=== PATIENT | female | born 1940 | race Caucasian/White ===

== ENCOUNTER → 2018-03-28 10:00 | Outpatient (CLI) | payer MEDICARE, MEDICAID, SELFPAY | PROVIDERS: PCP Family Medicine; Visit Provider Orthopaedic Surgery | DX: Z47.1 Aftercare following joint replacement surgery (principal); Z96.652 Presence of left artificial knee joint ==

== ENCOUNTER 2018-04-18 13:30 | Outpatient (RCR) | payer MEDICARE, MEDICAID, SELFPAY ==
--- NOTE | 2018-03-23 15:57 | PTTR_ITS ---
DATE: 03/23/18 SUBJECTIVE: Elvi states that she is still having pain in her knee and hip. She admits that she does not use ice or elevate often. OBJECTIVE: Manual therapy: ([id number]). With patient seated at the edge of the plinth, perform AP/PA glides to tibiofemoral joint. Mobilize patient into flexion, she easily reaches 120 degrees of active flexion. With patient in supine, performed AP/PA glides in loose packed position, followed by patellar mobs with restriction noted in all planes. Mobilize into knee extension utilizing METs for improved ROM. Patient achieves -3 degrees with moderate overpressure. Therapeutic procedures ([id number]). * [X] See flow sheet: Patient completed a closed-chain LE strengthening program with proprioceptive balance activities, as per flow sheet. Added functional step ups/downs and [id number], wobble board, and NuStep biking, with good tolerance. Patient ends with cryo to L knee x10 minutes, at no charge. * [X] Provided skilled instruction in proper exercise performance * [X] Provided skilled manual cues to facilitate proper muscle recruitment and/or movement pattern Direct treatment time: 45 minutes Total treatment time: 55 mintues
--- NOTE | 2018-03-27 11:23 | PTTR_ITS ---
DATE: 03/27/18 OBJECTIVE: * [X] Aquatic Therapy - (34863 x1): Patient completed a therapeutic exercise program in an aquatic setting for LE strengthening and improved ROM, as per flow sheet. Patient required skilled instruction for appropriate exercise performance and to avoid compensatory movement patterns throughout session. Patient was encouraged to perform activities without pool wall support , to focus on improved LE stability. Patient ended with deep water biking and several activities from her previous independent program for global conditioning. Direct treatment time: 20 minutes Total treatment time: 45 minutes
--- NOTE | 2018-04-03 11:06 | PTTR_ITS ---
DATE: 04/03/18 OBJECTIVE: * [X] Aquatic Therapy - (27976 x1): Patient completed a therapeutic exercise program in an aquatic setting for LE strengthening, as per flow sheet. Patient tolerated an increase in her program today, modifications made to reps are noted on flow sheet. Patient continues to require consistent cuing for postural correction as well as for proper movement mechanics to avoid compensatory movement patterns. Patient ends with biking and LE abd/add. Direct treatment time: 20 minutes Total treatment time: 40 minutes
--- NOTE | 2018-04-05 15:38 | PTTR_ITS ---
DATE: 04/06/18 SUBJECTIVE: Elvi continues to complain of balance impairments. OBJECTIVE: * [X] Aquatic Therapy - (21219 x1): Patient completed a therapeutic exercise program in an aquatic setting for LE strengthening, as per flow sheet. Patient was able to tolerate a progression in her program today, see flow sheet for modifications made to reps and resistance. Patient continues to require cuing for posture and appropriate movement mechanics, specifically to avoid compensation of glutes. Patient ends with deep end biking and LE abd/ add. Direct treatment time: 20 minutes Total treatment time: 40 minutes
--- NOTE | 2018-04-18 15:13 | PTDS_ITS ---
Date: 04/18/18 Referring: Clint Robles MD M.D. Diagnosis: S/p TKR 02/05/18 P.T. Diagnosis: Same Subjective: Elvi reports she is doing very well. No longer having any hip pain, as she originally complained about at her IE. She occasionally has lateral knee , pain but this is dissipating with time. She is doing her aquatic strengthening 2x/week. She started ambulating without a cane, not even remembering to bring it with her today. She does not c/o any limitations around her home or the community. Standardized Measures: LEFS 34% disability, compared to 59% at time of IE. Objective: Gait: Minimally antalgic, but comparable to baseline as I am familiar with Elvi. She has very mid extension lag at L heel strike, mild decreased stance on L. No trunk lean or Trendelenburg. Good heel to toes mechanics, in regards to her deconditioned state mild forward bend at hips with ambulation. Palpation: Non tender despite complaints of occasional lateral knee pain Edema: none ROM: L knee active: 5-120*. Passive 0-120* Joint Accessory Motion: TF WNL, with audible click. PF moderately limited all planes, but non painful. Strength: 5/5 quad and HS. Grossly weak through the L hip girdle as demonstrated by her forward flexion with gait, and dependency on hands with sit to stand. Balance: L SLS 10 sec, finger tip touch for 5 seconds of it. Treatment: Manual Therapy ([id number]): IASTM down regulation lateral knee joint compartment. Therapeutic Procedure ([id number]): Complete assessment as above, and HEP review with encouragement of continued aquatics, and directed how to increase reps and intensity of exercise, quad set activities to encourage extension. Treatment Time: 25 minutes Assessment: Patient is a 77-year-old female, referred for PT services with the diagnosis of L TKA 02/05/18. Patient presents appropriate for PT discharge due to minimal impairments related to her TKR. She has made excellent ROM gains, strength gains, and has returned to her premorbid level of function. She continues to demonstrate a movement pattern that suggest a remarkable amount of core and hip girdle weakness, but she refuses to participate in land based strengthening as she is convinced it aggravates her fibromyalgia. She will be compliant with aquatics, which will allow for good management of her fibromyalgia pain, keep her active, and to continues to maintain and strengthen her left knee further in the water. G-Codes (fill in modifier after appropriate code): Patient's discharge status: __x__ Mobility - walking and moving around : [id number], based on her LEFS Projected goal: __x__ Mobility - walking and moving around: [id number] BASED ON HER PREMORBID COMORBIDITIES AND ASSOCIATED IMPAIRMENTS AND FUNCTIONAL LIMITATIONS. STG: __4__ weeks. 1: LEFS is improved to 45% disability. MET 2: Patient states she is able to tolerate weight bearing activities of 45 mins or greater without pain exceeding a 4/10 in L knee. MET 3: Sleep pattern improved by 50%. MET LTG: __12__ weeks. 1: Continue with self maintenance aquatic and land base therapeutic exercise and mobility program. MET 2: Return to premorbid level of function. MET 3: Return to full functional mobility. MET Plan: Discharged.
== END 2018-04-20 23:59 | disposition home or self-care (01) ==
LOC: PT 13:30
PROVIDERS: PCP Family Medicine; Referring Provider Orthopaedic Surgery; Visit Provider Orthopaedic Surgery
DX: Z47.1 Aftercare following joint replacement surgery (principal); Z96.652 Presence of left artificial knee joint
CPT/HCPCS: 97110; 97113; 97140

== ENCOUNTER → 2018-05-09 10:12 | Outpatient (BNVA) | payer MEDICARE, MEDICAID, SELFPAY | PROVIDERS: PCP Family Medicine; Visit Provider Orthopaedic Surgery | DX: Z47.1 Aftercare following joint replacement surgery (principal); Z96.652 Presence of left artificial knee joint | CPT/HCPCS: 99213 ==

== ENCOUNTER 2018-10-23 11:44 | Outpatient (CLI) | payer MEDICARE, MEDICAID, SELFPAY ==
--- NOTE | 2018-10-23 11:24 | DI.RAD_ITS ---
SYMPTOM/DIAGNOSIS: RT ANKLE ARTHRITIS, S/P ORIF AT [facility] RIGHT ANKLE: Comparison is made with 01/14/16. Hardware remains in place in the distal tibia and fibula. There are again noted to be severe degenerative changes of the tibiotalar joint. There are large subchondral cysts in the talar dome. There is some flattening of the talus. The degenerative changes have worsened when compared with the previous exam. A prominent heel spur is noted. The bones appear osteoporotic. 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
== END 2018-10-23 12:04 ==
PROVIDERS: PCP Family Medicine; Referring Provider Family Medicine; Visit Provider Orthopaedic Surgery
DX: M19.071 Primary osteoarthritis, right ankle and foot (principal); M77.31 Calcaneal spur, right foot; I10 Essential (primary) hypertension
CPT/HCPCS: 99212; 99213; 73610; L1902

== ENCOUNTER 2018-12-21 11:20 | Outpatient (CLI) | payer MEDICARE, MEDICAID, SELFPAY ==
[2018-12-21 11:47] LABS: Abs Immature Grans 0.02 k/cumm (0.0-0.09); Absolute Basophil Count 0.01 k/cumm (0.0-0.2); Absolute Eosinophil Count 0.25 k/cumm (0.0-0.7); Absolute Lymphocyte Count 1.38 k/cumm (1.2-3.4); Absolute Monocyte Count 0.48 k/cumm (0.11-0.7); Absolute Neutrophil Count 3.63 k/cumm (1.2-6.7); Basophils % 0.2; Eosinophils % 4.3; HCT 38.5 % (36.0-46.0); HGB 12.2 g/dL (12.0-15.5); Immature Grans % 0.3; Lymphocytes % 23.9; Mean Corp. HGB Concentration 31.7 g/dL (32.0-36.0); Mean Corpuscular Hemoglobin 31.7 pg (27.0-33.0); Mean Platelet Volume 10.3 fL (8.0-11.0); Monocytes % 8.3; Platelet Count 210 x1000/uL (130-400); RBC 3.85 m/cumm (4.00-5.20); RBC Distribution Width 12.6 % (11.7-14.6); White Blood Cell Count 5.77 k/cumm (4.4-10.8)
[2018-12-21 12:26] LABS: ALT 18 U/L (12-78); AST 30 U/L (15-37); Albumin 3.2 g/dL (3.4-5.0); Alkaline Phosphatase 81 U/L (46-116); Anion Gap 10.6 mmol/L (3-11); BUN 8 mg/dL (7-18); Bilirubin, Total 0.4 mg/dL (0.2-1.0); CO2 23.4 mmol/L (21.0-32.0); CREATININE 0.82 mg/dL (0.55-1.02); Calcium 8.6 mg/dL (8.5-10.1); Chloride 105 mmol/L (98-107); Glucose 98 mg/dL (70-100); Potassium 4.9 mmol/L (3.5-5.1); Sodium 139 mmol/L (136-145); Total Protein 6.8 g/dL (6.4-8.2)
== END 2018-12-21 11:40 ==
PROVIDERS: PCP Family Medicine; Visit Provider Family Medicine
DX: I10 Essential (primary) hypertension (principal); R05 Cough; K52.9 Noninfective gastroenteritis and colitis, unspecified; K58.9 Irritable bowel syndrome, unspecified
CPT/HCPCS: 36415; 80053; 85025

== ENCOUNTER 2019-05-08 10:47 | Outpatient (CLI) | payer MEDICARE, MEDICAID, SELFPAY ==
--- NOTE | 2019-05-08 10:06 | DI.RAD_ITS ---
EXAM: XR KNEE LT 2V AP,LAT INDICATION: ONE YEAR F/U. COMPARISON: LEFT KNEE LIMITED 1 OR 2 VIEWS from 11/08/2017 TECHNIQUE: 2D digital imaging was performed. FINDINGS: Two views were obtained and show a total knee joint replacement in position. Components appear well seated. I
== END 2019-05-08 11:07 ==
PROVIDERS: PCP Family Medicine; Visit Provider Orthopaedic Surgery
DX: Z96.652 Presence of left artificial knee joint (principal); Z47.1 Aftercare following joint replacement surgery; I10 Essential (primary) hypertension; M17.12 Unilateral primary osteoarthritis, left knee
CPT/HCPCS: 99213; 73560

== ENCOUNTER 2019-06-25 15:14 | Outpatient (CLI) | payer MEDICARE, MEDICAID, SELFPAY ==
[2019-06-25 15:45] LABS: HCT 39.1 % (36.0-46.0); HGB 12.8 g/dL (12.0-15.5); Mean Corp. HGB Concentration 32.7 g/dL (32.0-36.0); Mean Corpuscular Hemoglobin 32.8 pg (27.0-33.0); Mean Corpuscular Volume 100.3 fL (80-95); Mean Platelet Volume 10.3 fL (8.0-11.0); Platelet Count 217 x1000/uL (130-400); RBC Distribution Width 12.6 % (11.7-14.6); White Blood Cell Count 6.65 k/cumm (4.4-10.8)
[2019-06-25 16:50] LABS: Vitamin B12 1381 pg/mL (193-986)
== END 2019-06-25 15:34 ==
PROVIDERS: PCP Family Medicine; Visit Provider Family Medicine
DX: E53.8 Deficiency of other specified B group vitamins (principal)
CPT/HCPCS: 36415; 85027; 82607

== ENCOUNTER 2019-11-18 15:48 | Outpatient (REF) | payer MEDICARE, MEDICAID, SELFPAY ==
[2019-11-18 20:21] LABS: Anion Gap 16.7 mmol/L (3-11); BUN 23 mg/dL (7-18); CO2 26.3 mmol/L (21.0-32.0); CREATININE 1.68 mg/dL (0.55-1.02); Calcium 9.5 mg/dL (8.5-10.1); Chloride 88 mmol/L (98-107); Estimated GFR 29.47 (mL/min/1.73m2); Glucose 117 mg/dL (74-106); Potassium 3.7 mmol/L (3.5-5.1); Sodium 131 mmol/L (136-145)
== END 2019-11-18 16:08 ==
LOC: NCHCN 15:48
PROVIDERS: PCP Family Medicine; Visit Provider Family Medicine
DX: R53.1 Weakness (principal); I10 Essential (primary) hypertension
CPT/HCPCS: 80048

== ENCOUNTER 2019-11-30 11:22 | Emergency (ER) | payer MEDICARE, MEDICAID, SELFPAY ==
--- NOTE | 2019-11-30 11:23 | ED.GENADUL_ITS ---
Discharge Plan Disposition Patient Disposition: HOME Condition: Fair Discharge Details Chief Complaint: GenMedical Clinical Impression: Chronic depression, Anorexia, Abnormal weight loss, Fatigue, UTI (urinary tract infection), Acute electrocardiogram changes Primary Care Provider: Iesha Leary ED Provider: Samantha Hobbs Home Meds and New Rx's Prescriptions: Continued duloxetine [Cymbalta] 20 MG capsule,delayed release(DR/EC) 20 mg PO BID RF: 0 albuterol sulfate 8.5 GM HFA aerosol inhaler 8.5 gm Inhalation Q4H PRN PRNQty: 1 RF: 0 trazodone 150 MG tablet 150 mg PO HS RF: 0 ferrous sulfate 325 MG tablet 325 mg PO TID RF: 0 esomeprazole magnesium [Nexium] 40 MG capsule,delayed release(DR/EC) 40 mg PO DAILY RF: 0 cholecalciferol (vitamin D3) [Vitamin D3] 400 UNIT tablet 800 unit PO DAILY RF: 0 glucosamine sulfate 2KCl 1,000 MG tablet 500 mg PO BID RF: 0 ascorbic acid (vitamin C) 1,000 MG tablet 4,000 mg PO DAILY RF: 0 duloxetine [Cymbalta] 60 MG capsule,delayed release(DR/EC) 60 mg PO BID RF: 0 hydrocodone-acetaminophen [Vicodin] 1 EACH tablet 1 tab PO BID RF: 0 medroxyprogesterone [Provera] 2.5 MG tablet 2.5 mg PO DAILY RF: 0 Premarin 0.3 MG tablet 0.3 mg PO QAM RF: 0 potassium chloride 20 MEQ tablet,ER particles/crystals 80 meq PO BID RF: 0 No Action mirtazapine 30 mg Tablet RF: 0 Discharge Instructions Instructions: Urinary Tract Infection in Women (ED), Fatigue (ED), Anorexia in Older Adults (GEN) Additional Instructions: Please continue to encourage fluid intake, please continue with the Gatorade as previously advised by Dr. Leary. Advance her diet as tolerated. Please stop your Remeron. Please call Dr. Leary on Monday morning to discuss close follow- up and further treatment for your depression and weight loss. If you develop new or worsening symptoms please seek care urgently once again. Please take the antibiotics as prescribed, these have been called into [facility] as you had requested. Please take entire course. Please continue with your probiotics. You have changes on your EKG, I have referred to to cardiology. You should hear about appointment the beginning of next week. If you develop shortness of breath, difficulty breathing or other new/worsening symptoms please seek care urgently once again. Referrals: Iesha Leary [Primary Care Provider] - Discharge Data Discharge Date/Time-TO BE ENTERED AT DEPARTURE: 11/30/19 15:30 Medical Decision Making Patient is a 79-year-old female with past medical history of colitis, hypertension, hyperlipidemia, fibromyalgia, chronic depression, insomnia, GERD, alcohol withdrawal delirium, rhabdomyolysis, COPD. Patient presents today for evaluation of anorexia x1 month. She reports significant weight loss setting a 16 pound weight loss in 1 month. States she has not seen her primary care. This developed after the of her 24-year-old. States she was seen by her primary care and started on Remeron. She advised that this medication is supposed to gain weight despite that has had difficulty with that has had even worsening anorexia. She denies any pain. No shortness of breath. Denies any chest pain. No recent travel. States that yesterday she had sausage and eggs. No p.o. intake thus far today. Denies any nausea vomiting. Patient reports that she has a chronic diarrhea and has had one loose bowel movement today. She reports that this is typical. States that she has been seen multiple times by gastroenterology. Last colonoscopy reported to have been 4 years ago. Patient does have alcohol dependence is been history, patient denies any alcohol use recently. Patient is been seen by her primary care provider on 2 separate occasions for the past few weeks which time she received IV hydration with im provement temporarily. EKG was reviewed by Dr. Mcadams. Patient's normal sinus rhythm with a rate of 101. This was compared to previous EKG in 2017 and of note the patient does have inferior ST segment depressions. She is currently denying any chest pain or shortness of breath. Reviewed note by primary care dated 11/22/2019. At that time, depression had been the primary concern and talked about medication management as well as therapy. Since that the patient was quite resistant to any changes at that time. The provider that time had encouraged Gatorade to help with electrolyte replenishme nt. Patient is prescribed loperamide to help with her chronic diarrhea. Patient is on hydrocodone chronically. On exam, patient has poor color of her skin tone. Her hands and feet are both cool and slightly cyanotic but this is improved with moving and she does continue to have good distal pulses equal bilaterally as well as a 3-second capillary refill in all extremities. Patient does report that this is chronic and unchanged from her baseline. She does appear slightly dry. She has white film on her tongue but states that she is currently eating tums. Patient is noted to be tachycardic with a heart rate of 115 but otherwise normal cardiac exam. Lungs are clear. Abdomen is benign. Patient appears nontoxic. She does appear fatigued. Have a fairly broad differential at this point. However, insisted come on after the of her cat, I am concerned, as was the patient's primary care, for depression is possible underlying etiology. Also considered cancerous etiology although I am not sure to narrow this down inferior to obtain imaging as the patient is not having any other physical symptoms. Symptoms seem more constitutional with fatigue, anorexia. Labs reviewed. Patient has no significant abnormality on CBC. CMP reveals a slightly low sodium of 133, potassium 3.3. Will correct this here. Creatinine remains slightly elevated 1.2, this is down from 1.68 on 11/18/2019. Troponin is less than 0.05. TSH within normal limits. Urinalysis is concerning for possible urinary tract infection with moderate leukocyte esterase and moderate bacteria. Plan to treat with Keflex. I approached the patient regarding the hesitancy to seek further care for her depression that was noted on a primary care note. She is now agreeing to speak with a therapist. I did review Remeron and do note anorexia as potential side effects. I wonder if this medication should be therefore changed once patient denies any clinical benefit since onset 3 weeks ago[address] with [address]. Pope. He is concerned that the hyponatremia. I was questioning if this may be associated with Remeron. He advised the patient may immediately stop Remeron. Advise close follow-up with Dr. Leary. He advised that he probably place the patient on Ritalin but I would prefer that the patient hold off on this and follow-up with primary care. Advised that patient may need further evaluation as well as for possible underlying tumor etiology although again I find it hard to narrow down possible source for this. He feels that discharge with close follow-up would be appropriate plus the cessation of Remeron. I discussed these findings with the patient. I am concerned that she has a urinary tract infection, she was given her first dose of Keflex here. Patient has no CVA tenderness. She is already on a probiotic with her chronic diarrhea. She will stop the Remeron as was discussed with Dr. Gannon. With the EKG changes, I will refer the patient to cardiology. However, as her symptoms are not consistent with ACS, is been going on for a month I do not feel that repeat EKG repeat troponin is necessary at this point. Her last EKG was in 2017 patient denies ever having had chest pain or shortness of breath or other ACS symptoms since that interval. She is given strict return precautions. I did call in the Keflex prescription for her urinary tract infection to [facility], patient's requested pharmacy. She will contact her primary care Monday morning. All the questions and concerns were addressed and she is in agreement this plan. HPI General Mode of arrival: ambulatory . Date/Time Provider Initiated Documentation: 11/30/19 11:23 . Limitations to Documentation: no limitations . Information obtained by: patient and RN notes reviewed . History of Present Illness 79 year old F presents to the emergency department with the chief complaint of decreased appetite, weight loss, weakness, described as moderate, Quality is described as other (denies any pain, denies change aside from ), Patient started experiencing this week(s) (4) and it has been constant. No relieving factors improve symptom(s), No exacerbating factors reported . Patient notes loss of appetite, malaise and weakness (generalized); denies confusion, chest pain, cough, diaphoresis, fever/chills, headaches, nausea/vomiting, rash and shortness of breath. Patient did receive the following treatments prior to arrival, none Related Data Home Medications Medication Instructions Recorded Confirmed albuterol sulfate 8.5 gm INHALATION Q4H PRN PRN #1 07/22/13 10/23/18 [email or web address] cholecalciferol (vitamin D3) 800 unit PO DAILY 12/06/13 10/23/18 [Vitamin D3] esomeprazole magnesium [Nexium] 40 mg PO DAILY 12/06/13 10/23/18 ferrous sulfate 325 mg PO TID 12/06/13 10/23/18 glucosamine sulfate 2KCl 500 mg PO BID 12/06/13 10/23/18 trazodone 150 mg PO HS 12/06/13 10/23/18 ascorbic acid (vitamin C) 4,000 mg PO DAILY 03/22/14 10/23/18 duloxetine [Cymbalta] 60 mg PO BID 11/15/16 10/23/18 hydrocodone-acetaminophen [Vicodin] 1 tab PO BID 11/15/16 10/23/18 Premarin 0.3 mg PO QAM 11/18/16 10/23/18 medroxyprogesterone [Provera] 2.5 mg PO DAILY 11/18/16 10/23/18 potassium chloride 80 meq PO BID 11/25/16 10/23/18 duloxetine [Cymbalta] 20 mg PO BID tab-cap 11/08/17 10/23/18 mirtazapine mg 11/30/19 Previous Rx's Medication Instructions Recorded albuterol sulfate 8.5 gm INHALATION Q4H PRN PRN #1 07/22/13 [email or web address].[email or web address] Allergies Allergy/AdvReac Type Severity Reaction Status Date / Time fentanyl AdvReac Verified 05/08/19 10:04 Review of Systems Constitutional Constitutional: Reports as per HPI, Reports anorexia, Denies chills, Reports fatigue, Denies fever(s), Denies headache(s), Reports lethargy, Reports poor appetite and Reports weight loss ENT Ears, Nose, Mouth, and Throat: Denies headache(s) Cardiovascular Cardiovascular: Reports as per HPI, Denies chest pain and Denies dyspnea Respiratory Respiratory: Reports as per HPI, Denies cough and Denies dyspnea Gastrointestinal Gastrointestinal: Reports as per HPI Musculoskeletal Musculoskeletal: Reports as per HPI and Denies back pain Integumentary/Breasts Skin/Breast: Reports as per HPI and Denies rash Neurologic Neurologic: Reports as per HPI and Denies headache(s) Endocrine Endocrine: Reports fatigue PFSH Medical History Alcohol abuse Allergic rhinitis Anemia Depression DJD (degenerative joint disease) Fibromyalgia GERD (gastroesophageal reflux disease) Hiatal hernia Hypercholesterolemia Hyperlipidemia Hypertension IBS (irritable bowel syndrome) Insomnia Surgical History Arthroplasty of knee left Colonoscopy - [facility] (11/18/16) ORIF right ankle Repair fracture right wrist Tonsillectomy and adenoidectomy Social History Smoking/Tobacco Use Status: Former Tobacco Use Alcohol Intake: never Drug use: Never Substance use type: does not use Do you feel safe at home: Yes Do you feel safe in your relationship?: Yes Exam Const General: cooperative, comfortable, no acute distress, well developed and ill appearing chronically (poor color) Nutritional Appearance: average body habitus and well nourished Orientation: alert and awake [facility] Head: normal to inspection Mouth: mucous membranes dry (dry, white mouth- eating tums) Teeth and gingiva: dentures Throat: posterior oropharynx normal Neck Neck: normal visual inspection, full ROM, no lymphadenopathy, no meningeal signs, supple and no lymphadenopathy noted Resp Effort & Inspection: normal respiratory effort, able to speak in complete sentences and no respiratory distress Auscultation: clear to auscultation bilaterally, no rales, no rhonchi and no wheezes Cardio Rate: regular rate Rhythm: regular rhythm Heart Sounds: S1 normal and S2 normal GI Inspection: normal to inspection, no edema and non-distended Palpation: soft, no hepatosplenomegaly, not firm, no guarding, no hernias, no masses, no pulsatile masses, not rigid and nontender Percussion: normal to percussion Auscultation: normal bowel sounds Back/Spine/Pelvis Back: no CVA tenderness Skin General skin exam: no rashes or lesions noted Trauma: no lacerations or abrasions Neuro General: patient alert and patient awake Cognition: normal cognition Speech: speech normal Gait: normal gait Psych Appearance: grossly normal and well kempt Mental Status: mental status grossly normal Speech and Movement: speech and movement normal
[2019-11-30 11:27] VITALS: BP 114/94; PULSE 115; RESP 20; TEMP 36.1; O2SAT 95
[2019-11-30 12:11] LABS: Abs Immature Grans 0.07 k/cumm (0.0-0.09); Absolute Basophil Count 0.02 k/cumm (0.0-0.2); Absolute Eosinophil Count 0.06 k/cumm (0.0-0.7); Absolute Lymphocyte Count 1.53 k/cumm (1.2-3.4); Absolute Monocyte Count 1.15 k/cumm (0.11-0.7); Absolute Neutrophil Count 5.83 k/cumm (1.2-6.7); Basophils % 0.2; Eosinophils % 0.7; HCT 45.7 % (36.0-46.0); Immature Grans % 0.8 %; Lymphocytes % 17.7; Mean Corpuscular Volume 94.2 fL (80-95); Mean Platelet Volume 9.5 fL (8.0-11.0); Monocytes % 13.3; Neutrophils % 67.3; Platelet Count 307 x1000/uL (130-400); RBC 4.85 m/cumm (4.00-5.20); RBC Distribution Width 11.9 % (11.7-14.6); White Blood Cell Count 8.66 k/cumm (4.4-10.8)
[2019-11-30] MEDS: Normal Saline 1,000 ML 1000 ML IV (12:15)
[2019-11-30 13:46] LABS: ALT 22 U/L (14-59); AST 22 U/L (15-37); Albumin 2.4 g/dL (3.4-5.0); Alkaline Phosphatase 116 U/L (46-116); Anion Gap 7.1 mmol/L (3-11); BUN 14 mg/dL (7-18); Bilirubin, Total 0.4 mg/dL (0.2-1.0); CO2 28.9 mmol/L (21.0-32.0); Calcium 8.1 mg/dL (8.5-10.1); Chloride 97 mmol/L (98-107); ETHANOL BLOOD < 3.0 mg/dL (<3); Estimated GFR 43.34 (mL/min/1.73m2); Glucose 82 mg/dL (74-106); Magnesium 2.1 mg/dL (1.8-2.4); Potassium 3.3 mmol/L (3.5-5.1); Sodium 133 mmol/L (136-145); Total Protein 6.2 g/dL (6.4-8.2); Troponin I < 0.05 ng/Ml (<0.06)
[2019-11-30 13:51] VITALS: BP 111/64; PULSE 79; RESP 17; TEMP 36.1; O2SAT 93
[2019-11-30 13:54] LABS: Bilirubin Negative (Negative); Blood Trace-intact (Negative); Clarity Clear (Clear); Glucose Negative (Negative); Ketones Negative (Negative); Leukocyte Esterase Moderate (Negative); Nitrite Negative (Negative); Urobilinogen 0.2 EU/dL (Up TO 0.2)
[2019-11-30 14:06] LABS: Bacteria Moderate HPF (Negative); C & S Indicated? Yes; Casts Negative LPF (Negative); Crystals Negative HPF (Negative); Epithelial Cells Few HPF (Negative); Mucus Trace (Negative); WBC 20-50 HPF (0-5)
[2019-11-30 14:17] LABS: *AMPHETAMINES SCREEN URINE Negative (Negative); *BARBITURATES SCREEN URINE Negative (Negative); *BENZODIAZEPINES SCREEN URINE Negative (Negative); Cannabinoids THC Negative (Negative); Cocaine Screen,Urine Negative (Negative); METHADONE URINE SCREEN Negative (Negative); OPIATES URINE SCREEN POSITIVE (Negative); Tricyclic Antidepressants Negative (Negative)
[2019-11-30] MEDS: Cephalexin 500 MG CAP PO (14:25)
[2019-11-30] MEDS: Potassium Chloride 10 MEQ TABCR PO (14:25)
--- NOTE | 2019-11-30 14:36 | NUR.NOTE ---
Pt currently drinking sin sarah, tolerating well.
--- NOTE | 2019-11-30 16:09 | NUR.NOTE ---
Nursing Note: Faxed cardiology referral to specialty clinics
== END 2019-11-30 15:30 | disposition home or self-care (01) ==
PROVIDERS: Emergency Provider Physician Assistant; PCP Family Medicine
DX: F32.89 Other specified depressive episodes (principal); R63.0 Anorexia; R63.4 Abnormal weight loss; N39.0 Urinary tract infection, site not specified; R53.83 Other fatigue; R94.31 Abnormal electrocardiogram [ECG] [EKG]; I10 Essential (primary) hypertension; R79.9 Abnormal finding of blood chemistry, unspecified
CPT/HCPCS: 80053; 80307; 87077; 93005; 96360; 96361; 99284; 80320; 81003; 81015; 83735; 84443; 84484; 85025; 87086; 87186; 93010

== ENCOUNTER 2020-05-11 03:18 | Emergency (ER) | payer MEDICARE, MEDICAID, SELFPAY ==
[2020-05-11] VITALS (18 sets, daily range): BP systolic 106–140; BP diastolic 60–127; PULSE 81–147; RESP 17–42; TEMP 36.7; O2SAT 87–100
--- NOTE | 2020-05-11 03:15 | DI.CT_ITS ---
EXAM: CT HEAD WO CLINICAL HISTORY: numbness/tingling right head, dizziness. TECHNIQUE: Imaging Protocol: Axial computed tomography images with coronal and sagittal reformatted images were created and reviewed COMPARISON: CT HEAD WITHOUT CONTRAST from 12/06/2013 FINDINGS: Ventricles and Extra axial spaces: Normal in size and morphology for the patient's age. Hemorrhage: None. Cerebral parenchyma: Subtle areas of decreased attenuation are seen in the white matter most suggesti ve of microvascular ischemic changes. No evidence of an acute territorial infarct. Midline shift: None. Brainstem/Cerebellum: Normal. Calvarium: Normal. Visualized Paranasal sinuses/Mastoids: Clear. Soft Tissues: Unremarkable. IMPRESSION: No acute intracranial process. RADIATION DOSE DELIVERED: 735.12mGy.cm Total DLP DATA REPOSITORY: All CT scans at this facility are submitted to the National Radiology Data Registry (NRDR) Dose Index Registry (DIR) with the [employer] [place] ([employer]). RADIATION OPTIMIZATION: All CT scans at this facility use at least one of these dose optimization te chniques: automated exposure control; mA and/or kV adjustment per patient size (includes targeted exa ms where dose is matched to clinical indication); or iterative reconstruction.
--- NOTE | 2020-05-11 03:18 | RT.EKG_ITS ---
APPROVED REPORT Exam: Resting ECG Patient Location: E HR:109 bpm ECG Measurements Heart Rate 109 AXIS KS 61 P 0 QRSd 86 QRS 4 QT 369 T 27 QTc 498 Conclusion Sinus tachycardia...rate> 99 Probable left atrial enlargement...P >50mS, <-0.10mV V1 Low voltage, extremity and precordial leads...extremity<0.5mV, precordial<1.0mV Nonspecific T abnrm, anterolateral leads...T <-0.10mV, I aVL V2-V6
--- NOTE | 2020-05-11 03:25 | ED.GENADUL_ITS ---
Discharge Plan Disposition Patient Disposition: HOME Condition: Stable Discharge Details Clinical Impression: Paresthesia Primary Care Provider: Iesha Leary ED Provider: Manohar Trejo Home Meds and New Rx's Prescriptions: Continued duloxetine [Cymbalta] 20 MG capsule,delayed release(DR/EC) 30 mg PO BID RF: 0 albuterol sulfate 8.5 GM HFA aerosol inhaler 8.5 gm Inhalation Q4H PRN PRNQty: 1 RF: 0 trazodone 150 MG tablet 150 mg PO HS RF: 0 ferrous sulfate 325 MG tablet 325 mg PO TID RF: 0 esomeprazole magnesium [Nexium] 40 MG capsule,delayed release(DR/EC) 40 mg PO DAILY RF: 0 cholecalciferol (vitamin D3) [Vitamin D3] 400 UNIT tablet 800 unit PO DAILY RF: 0 glucosamine sulfate 2KCl 1,000 MG tablet 500 mg PO BID RF: 0 ascorbic acid (vitamin C) 1,000 MG tablet 4,000 mg PO DAILY RF: 0 duloxetine [Cymbalta] 60 MG capsule,delayed release(DR/EC) 90 mg PO BID RF: 0 hydrocodone-acetaminophen [Vicodin] 1 EACH tablet 1 tab PO BID RF: 0 medroxyprogesterone [Provera] 2.5 MG tablet 2.5 mg PO DAILY RF: 0 Premarin 0.3 MG tablet 0.3 mg PO QAM RF: 0 potassium chloride 20 MEQ tablet,ER particles/crystals 80 meq PO BID RF: 0 Discharge Instructions Additional Instructions: your cat scan and blood work did not show any concerning findings you should be contacted with an appointment with your primary care provider and to help arrange home physical therapy if you feel more ill, have worsening weakness or difficulty breathing return to the emergency department Medical Decision Making 79 yo female with hx of htn, insomnia, gerd, fibromyalgia, copd, who comes in with ems with 2 weeks of intermittent right sided scalp tingling and states has had current tingling sensation on right scalp for 8 hours. States she felt lightheaded earlier yesterday but denies this now. No fevers, chest pain, shortness of breath abdominal pain. Arrives hd stable and appears anxious on exam. She arrives hd stable with pressured speech but no focal deficits. No cn II-XII deficits and no focal motor or sensation deficits, nih of 0. She has full sensation of the scalp. I suspect this could be due to her anxiety/insomnia but will evaluate for electrolyte abnormalities and given it is on one side of the scalp obtain ct to evaluate for possible mass. No headaches so doubt ich. No chest pain or pressure or shortness of breath so doubt acs at this time ct negative for acute pathology, she appears less anxious and feels better after a half mg of ativan. Awaiting labs, stable neuro exam. Hr 80, bp 128/88 pt remains hd stable, no neuro deficits and does walk and has to hold her hands out against a wall when doing so but states this is chronic for her for years and unchanged. She feels safe going home and declines placement in rehab at this time as she states she feels at her baseline but is willing to have home PT for evaluation of gait and home safety evaluation. Will also place her on the f/u list to see her pcp within a week for scalp paresthesia. I suspect her symptoms could be due to her chronic insomnia and likely peripheral neuropathy from prior alcohol abuse over years, but she understands she needs to return for any changes or worsening of symptoms Differential Diagnosis Differential Diagnosis: anxiety, electrolyte abnormality, tumor Medical Records Medical records reviewed: Yes I reviewed the patient's medical records. Imaging Data Radiologic Study: Attestation: I personally reviewed and interpreted this imaging study as follows: Imaging: CT Scan Radiologist's impression: no acute findings Lab Data Lab results reviewed: Yes I reviewed the patient's lab results. ECG Data Attestation: I personally reviewed and interpreted this ECG (s) as follows: Prior ECG tracings: not available for review Interpretation: sinus tachycardia, rate of 109, qtc 498 HPI General Mode of arrival: ambulatory . Date/Time Provider Initiated Documentation: 05/11/20 03:22 . Limitations to Documentation: no limitations . Information obtained by: patient . History of Present Illness 79 year old F presents to the emergency department with the chief complaint of tingling on right scalp, described as moderate, Patient started experiencing this week(s) (2) and it has been intermittent. No relieving factors improve symptom(s), No exacerbating factors reported . Patient did receive the following treatments prior to arrival, none Related Data Home Medications Medication Instructions Recorded Confirmed albuterol sulfate 8.5 gm INHALATION Q4H PRN PRN #1 07/22/13 05/11/20 [email or web address] cholecalciferol (vitamin D3) 800 unit PO DAILY 12/06/13 05/11/20 [Vitamin D3] esomeprazole magnesium [Nexium] 40 mg PO DAILY 12/06/13 05/11/20 ferrous sulfate 325 mg PO TID 12/06/13 05/11/20 glucosamine sulfate 2KCl 500 mg PO BID 12/06/13 05/11/20 trazodone 150 mg PO HS 12/06/13 05/11/20 ascorbic acid (vitamin C) 4,000 mg PO DAILY 03/22/14 05/11/20 duloxetine [Cymbalta] 90 mg PO BID 11/15/16 05/11/20 hydrocodone-acetaminophen [Vicodin] 1 tab PO BID 11/15/16 05/11/20 Premarin 0.3 mg PO QAM 11/18/16 05/11/20 medroxyprogesterone [Provera] 2.5 mg PO DAILY 11/18/16 05/11/20 potassium chloride 80 meq PO BID 11/25/16 05/11/20 duloxetine [Cymbalta] 30 mg PO BID tab-cap 11/08/17 05/11/20 Previous Rx's Medication Instructions Recorded albuterol sulfate 8.5 gm INHALATION Q4H PRN PRN #1 07/22/13 [email or web address] Allergies Allergy/AdvReac Type Severity Reaction Status Date / Time fentanyl AdvReac Verified 05/11/20 04:14 General MELISSA: 3 Review of Systems All systems reviewed & are unremarkable except as noted in HPI and below Constitutional Constitutional: Denies chills, Denies fever(s) and Denies weakness Cardiovascular Cardiovascular: Denies chest pain and Denies dyspnea Respiratory Respiratory: Denies cough and Denies dyspnea Gastrointestinal Gastrointestinal: Denies abdominal pain, Denies nausea and Denies vomiting Musculoskeletal Musculoskeletal: Denies joint swelling Neurologic Neurologic: Denies weakness Psychiatric Psychiatric: Denies depression ON LICENSE OF [facility] Medical History (Updated 05/11/20 @ 05:22 by Manohar Trejo MD) Alcohol abuse Allergic rhinitis Anemia Depression DJD (degenerative joint disease) Fibromyalgia GERD (gastroesophageal reflux disease) Hiatal hernia Hypercholesterolemia Hyperlipidemia Hypertension IBS (irritable bowel syndrome) Insomnia Surgical History Arthroplasty of knee left Colonoscopy - MAC (11/18/16) ORIF right ankle Repair fracture right wrist Tonsillectomy and adenoidectomy Social History Smoking/Tobacco Use Status: Former Tobacco Use Alcohol Intake: current Alcohol Intake frequency: 0-2 drinks per day Alcohol type: wine Drug use: Never Substance use type: does not use Do you feel safe at home: Yes Do you feel safe in your relationship?: Yes Exam Const General: anxious Orientation: alert HENMT Head: normal to inspection Ears: external ears normal General nose exam: external nose normal Mouth: moist mucous membranes Eyes General: appearance normal, both eyes and all related structures Neck Neck: normal visual inspection Resp Effort & Inspection: normal respiratory effort and able to speak in complete sentences Cardio Rate: tachycardic Skin General skin exam: no rashes or lesions noted Neuro General: patient alert and patient oriented x3 Extrem General: normal to inspection Psych Appearance: grossly normal
[2020-05-11] MEDS: LORazepam 2 MG/ML VIAL 0.5 MG IVP (03:38)
[2020-05-11 03:40] LABS: Abs Immature Grans 0.02 10^3/uL (0.0-0.06); Absolute Basophil Count 0.02 10^3/uL (0.0-0.2); Absolute Eosinophil Count 0.19 10^3/uL (0.0-0.7); Absolute Lymphocyte Count 2.57 10^3/uL (1.2-3.4); Absolute Monocyte Count 0.62 10^3/uL (0.1-0.8); Absolute Neutrophil Count 3.01 10^3/uL (1.2-6.7); Basophils % 0.3; HGB 11.3 g/dL (11.2-15.7); Immature Grans % 0.3; MCHC 34.2 % (32.0-36.0); MCV 99.4 fL (80-95); MPV 10.1 fL (8.0-11.0); Monocytes % 9.6; Neutrophils % 46.8; Nucleated RBC 0 %; Platelet Count 237 10^3/uL (130-400); RBC 3.32 10^6/uL (3.93-5.22); RDW 13.5 % (11.7-14.6); WBC 6.43 10^3/uL (4.4-10.8)
[2020-05-11 03:56] LABS: INR 1.1 (0.9-1.1); PTT Activated 23.8 sec (21.0-31.4); Prothrombin Time 10.9 sec (9.3-11.0)
--- NOTE | 2020-05-11 04:01 | DI.VRAD_ITS ---
PROCEDURE INFORMATION: Exam: CT Head Without Contrast Exam date and time: 05/11/2020 3:49 AM Age: 79 years old Clinical indication: Patient HX: Numbness/tingling right head, dizziness TECHNIQUE: Imaging protocol: Computed tomography of the head without contrast. Other technique: STROKE PROTOCOL was implemented. COMPARISON: CT HEAD WITHOUT CONTRAST 09/22/2014 11:51 AM FINDINGS: Brain: Normal. No hemorrhage. Unremarkable white matter. No mass effect. Ventricles: No ventriculomegaly. Bones/joints: Unremarkable. No acute fracture. Paranasal sinuses: Visualized sinuses are unremarkable. No fluid levels. Mastoid air cells: Visualized mastoid air cells are well aerated. Soft tissues: Unremarkable. IMPRESSION: No acute intracranial abnormality. ASSESSMENT: ASPECTS (Hilda Stroke Program Early CT Score) is 10. Dictated and Authenticated by: Manohar Alonzo MD. Ordering:LATESHA Villela MD
[2020-05-11 05:09] LABS: ALT 20 U/L (14-59); AST 28 U/L (15-37); Albumin 2.6 g/dL (3.4-5.0); Alkaline Phosphatase 152 U/L (46-116); Anion Gap 14.9 mmol/L (3-11); BUN 10 mg/dL (7-18); Bilirubin, Total 0.4 mg/dL (0.2-1.0); CO2 21.1 mmol/L (21.0-32.0); CREATININE 0.97 mg/dL (0.55-1.02); Chloride 103 mmol/L (98-107); Glucose 84 mg/dL (74-106); Magnesium 1.6 mg/dL (1.8-2.4); Potassium 3.7 mmol/L (3.5-5.1); Sodium 139 mmol/L (136-145); Total Protein 5.7 g/dL (6.4-8.2)
[2020-05-11 05:10] LABS: Troponin I < 0.05 ng/mL (<0.06)
--- NOTE | 2020-05-19 10:00 | CMPROGNOTE_ITS ---
- If Service Date Differs Date of service: 05/19/20 Time of Service: 10:00 Care Management Progress Note At the request of ED provider, CM coordinates a referral to Home Health for in- home physical therapy.
== END 2020-05-11 06:00 | disposition home or self-care (01) ==
PROVIDERS: Emergency Provider Emergency Medicine; PCP Family Medicine
DX: R20.2 Paresthesia of skin (principal); I10 Essential (primary) hypertension; J44.9 Chronic obstructive pulmonary disease, unspecified
CPT/HCPCS: 36415; 80053; 93005; 96374; 99285; 70450; 81003; 83735; 84484; 85025; 85610; 85730; 93010; 99284; J2060

== ENCOUNTER 2020-07-02 15:19 | Emergency (ER) | payer MEDICARE, MEDICAID, SELFPAY ==
--- NOTE | 2020-07-02 15:15 | RT.EKG_ITS ---
APPROVED REPORT Exam: Resting ECG Patient Location: E HR:75 bpm ECG Measurements Heart Rate 75 AXIS SC 135 P 6 QRSd 97 QRS 14 QT 386 T 19 QTc 430 Conclusion Sinus rhythm...normal P axis, V-rate 60- 99 Low voltage, precordial leads...precordial leads <1.0mV I have reviewed and interpreted ECG and agree with software generated interpretation.
[2020-07-02 15:20] VITALS: BP 140/80; PULSE 78; RESP 18; TEMP 36.3; O2SAT 94
--- NOTE | 2020-07-02 15:22 | ED.GENADUL_ITS ---
Discharge Plan Disposition Patient Disposition: HOME Condition: Improving Discharge Details Clinical Impression: Spasm of thoracic back muscle Primary Care Provider: Iesha Leary ED Provider: Katiuska Nguyen Home Meds and New Rx's Prescriptions: New methocarbamol 500 mg tablet 500 mg PO Q6H PRN (Reason: muscle spasm) Qty: 14 RF: 0 lidocaine [Lidoderm] 5 % adhesive patch,medicated 1 patch TP DAILY PRN (Reason: pain) Qty: 15 RF: 0 Continued duloxetine [Cymbalta] 20 MG capsule,delayed release(DR/EC) 30 mg PO BID RF: 0 albuterol sulfate 8.5 GM HFA aerosol inhaler 8.5 gm Inhalation Q4H PRN PRNQty: 1 RF: 0 trazodone 150 MG tablet 150 mg PO HS RF: 0 ferrous sulfate 325 MG tablet 325 mg PO TID RF: 0 esomeprazole magnesium [Nexium] 40 MG capsule,delayed release(DR/EC) 40 mg PO DAILY RF: 0 cholecalciferol (vitamin D3) [Vitamin D3] 400 UNIT tablet 800 unit PO DAILY RF: 0 glucosamine sulfate 2KCl 1,000 MG tablet 500 mg PO BID RF: 0 ascorbic acid (vitamin C) 1,000 MG tablet 4,000 mg PO DAILY RF: 0 duloxetine [Cymbalta] 60 MG capsule,delayed release(DR/EC) 90 mg PO BID RF: 0 hydrocodone-acetaminophen [Vicodin] 1 EACH tablet 1 tab PO BID RF: 0 medroxyprogesterone [Provera] 2.5 MG tablet 2.5 mg PO DAILY RF: 0 Premarin 0.3 MG tablet 0.3 mg PO QAM RF: 0 potassium chloride 20 MEQ tablet,ER particles/crystals 80 meq PO BID RF: 0 Discharge Instructions Instructions: Muscle Spasm (ED) Additional Instructions: Alternate ice and heat to the affected area(s) several times daily for 20 minutes at a time. Alternate tylenol and motrin as needed and directed for pain. Take your Vicodin that you have at home as needed and directed for pain. Take the methocarbamol muscle relaxer as needed and directed for additional pain relief of your back spasms. Use the Lidoderm patches as needed and directed for pain. Follow-up with your primary care doctor in 1 week. Return to the emergency department with any worsening or new concerning symptoms. Discharge Data Discharge Date/Time-TO BE ENTERED AT DEPARTURE: 07/02/20 18:30 Discharge Physician: Katiuska Nguyen Medical Decision Making 1530 -- 79-year-old female presents with mid bilateral back spasms for the past few days. States it started after moving a rug at home. Vitals within normal limits. She appears nontoxic. Pain appears reproducible when she is moving around and when laying flat. She does have tenderness palpation of her bilateral lateral mid thoracic region. Lungs clear. Abdomen soft nontender. No focal deficits. Neurovascular intact. Considering age and history, will obtain a chest x-ray to rule out any other acute findings. Will give a dose of oxycodone, Valium p.o. and Toradol IM and Lidoderm patch and reassess. 1700 --patient reassessed and she feels much better. X-ray results noted possible age-indeterminate compression injuries of at least 2 mid thoracic vertebrae and recommended CT if warranted. Results discussed with patient and she admits that she feels that she has been getting somewhat shorter but denies any known thoracic vertebrae fracture. Is agreeable with plan for CT chest. 1829 -- CT chest notes chronic thoracic vertebral fractures. Patient reassessed and she still feels better and feels good to go home. We will send with methocarbamol for home. Advised to follow up with the primary care doctor for re-evaluation. Usual and customary return precautions given prior to discharge. Medical Records Medical records reviewed: Yes I reviewed the patient's medical records. Imaging Data Radiologic Study: Radiologist's impression: XR Chest, 2 Views Exam date and time: 07/02/2020 3:51 PM Age: 79 years old Clinical indication: Other: Mid back pain TECHNIQUE: Imaging protocol: XR of the chest Views: 2 views. COMPARISON: CR CHEST 2 VIEWS PA,LAT 12/06/2013 4:52 PM FINDINGS: Lungs: Unremarkable. No consolidation. Pleural space: Unremarkable. No pleural effusion. No pneumothorax. Heart/Mediastinum: A large hiatal hernia is appreciated. There is mild cardiomegaly. Vasculature: Tortuous aorta is present. Calcified aortic knob. Bones/joints: Moderate multilevel degenerative changes of the spine, as manifested by multilevel anterior osteophytes and multilevel decrease in intervertebral disc space. Possible compression injuries at at least 2 midthoracic vertebra. IMPRESSION: 1. No acute cardiopulmonary pathology. 2. Possible a age indeterminate compression injuries at at least 2 midthoracic vertebra. Consider correlation with CT if clinically warranted. CT Chest Without Contrast Exam date and time: 07/02/2020 5:10 PM Age: 79 years old Clinical indication: Other: Back pain and mid back spasms. ; Patient HX: No trauma/ injury to mid back. ; Additional info: Added t spine reconstructions to chest wo in all three planes. TECHNIQUE: Imaging protocol: Computed tomography of the chest without contrast. Radiation optimization: All CT scans at this facility use at least one of these dose optimization techniques: automated exposure control; mA and/or kV adjustment per patient size (includes targeted exams where dose is matched to clinical indication); or iterative reconstruction. COMPARISON: CR XR CHEST 2V PA LATERAL 07/02/2020 4:43 PM FINDINGS: Lungs: Reticular scarring noted throughout the lung periphery with focal areas of honeycombing appreciated in the right upper lobe, right middle lobe, and right lower lobe. There is linear scarring in the left lung base likewise appreciated. No acute interstitial or airspace disease is appreciated at this time. The airways are patent. COPD related pulmonary changes are suggested. Pleural space: Trace left pleural effusion. Heart: The heart is not enlarged. There is calcification of the aortic valve annulus. There is mild atherosclerotic calcification of the coronary arteries. Trace pericardial effusion is most likely physiologic and of no clinical concern. Mediastinal space: A large hiatal hernia is present. Pulmonary arteries: Normal in course and caliber. Aorta: The aorta demonstrates mild atherosclerotic calcification. Aorta appears otherwise unremarkable. Lymph nodes: No adenopathy. Bones/joints: No acute skeletal pathology. Severe multilevel degenerative changes of the spine, as manifested by multilevel anterior osteophytes and multilevel decrease in intervertebral disc space. Chronic compression fractures of T7 and T8, with about 45% loss in vertebral body height at T7 and about 50-60% loss of vertebral body height at T8. There is no retropulsion of fracture fragments appreciated. Spinal canal appears patent. Soft tissues: Unremarkable. Other findings: The visualized intra-abdominal structures demonstrate no acute findings. IMPRESSION: 1. Trace left pleural effusion. Otherwise, no other acute thoracic pathology is identified. 2. Chronic interstitial lung disease, as detailed above. 3. Incidental findings as detailed above. Note is made of chronic compression fractures at T7 and T8, as detailed above. ECG Data Attestation: I personally reviewed and interpreted this ECG (s) as follows: Interpretation: EKG done on arrival by staff and not ordered by me. Rate of 75, sinus, no acute ST elevation or depression. IL 135. QRS 97. QTc 430. HPI General Mode of arrival: ambulatory . Date/Time Provider Initiated Documentation: 07/02/20 15:23 . Limitations to Documentation: no limitations . Information obtained by: patient . HPI Narrative: Patient is a 79-year-old female with a history of fibromyalgia, hypertension, hyperlipidemia, insomnia and history of alcohol abuse which she denies currently presents for mid back pain for the past 2 days. Patient states she moved a heavy rug with her friend a few days ago and states she may have injured her back doing this rib do not recall specific injury. She states she has bilateral mid back spasms that occur mainly with movement and bending over. She takes Vicodin twice daily for her fibromyalgia and denies any significant relief with this today. She denies any fever, cough, anterior chest pain, abdominal pain, nausea, vomiting, diarrhea, urinary symptoms, bowel or bladder incontinence, saddle anesthesia, arm or leg pain weakness or numbness. Related Data Home Medications Medication Instructions Recorded Confirmed albuterol sulfate 8.5 gm INHALATION Q4H PRN PRN #1 07/22/13 07/02/20 [email or web address] cholecalciferol (vitamin D3) 800 unit PO DAILY 12/06/13 07/02/20 [Vitamin D3] esomeprazole magnesium [Nexium] 40 mg PO DAILY 12/06/13 07/02/20 ferrous sulfate 325 mg PO TID 12/06/13 07/02/20 glucosamine sulfate 2KCl 500 mg PO BID 12/06/13 07/02/20 trazodone 150 mg PO HS 12/06/13 07/02/20 ascorbic acid (vitamin C) 4,000 mg PO DAILY 03/22/14 07/02/20 duloxetine [Cymbalta] 90 mg PO BID 11/15/16 07/02/20 hydrocodone-acetaminophen [Vicodin] 1 tab PO BID 11/15/16 07/02/20 Premarin 0.3 mg PO QAM 11/18/16 07/02/20 medroxyprogesterone [Provera] 2.5 mg PO DAILY 11/18/16 07/02/20 potassium chloride 80 meq PO BID 11/25/16 07/02/20 duloxetine [Cymbalta] 30 mg PO BID tab-cap 11/08/17 07/02/20 lidocaine [Lidoderm] 1 patch TP DAILY PRN #15 ea 07/02/20 methocarbamol 500 mg PO Q6H PRN #14 tab 07/02/20 Previous Rx's Medication Instructions Recorded albuterol sulfate 8.5 gm INHALATION Q4H PRN PRN #1 07/22/13 [email or web address] lidocaine [Lidoderm] 1 patch TP DAILY PRN #15 ea 07/02/20 methocarbamol 500 mg PO Q6H PRN #14 tab 07/02/20 Allergies Allergy/AdvReac Type Severity Reaction Status Date / Time fentanyl AdvReac Verified 07/02/20 16:04 General MELISSA: 2 Review of Systems All systems reviewed & are unremarkable except as noted in HPI and below Constitutional Constitutional: Reports as per HPI, Denies chills and Denies fever(s) Eyes Eyes: Denies blurry vision ENT Ears, Nose, Mouth, and Throat: Denies dizziness, Denies sore throat and Denies throat swelling Cardiovascular Cardiovascular: Denies chest pain and Denies dyspnea Respiratory Respiratory: Denies cough and Denies dyspnea Gastrointestinal Gastrointestinal: Denies abdominal pain, Denies diarrhea and Denies vomiting Genitourinary Genitourinary: Denies hematuria and Denies dysuria Musculoskeletal Musculoskeletal: Reports back pain and Denies numbness Integumentary/Breasts Skin/Breast: Denies lesions and Denies rash Neurologic Neurologic: Denies dizziness, Denies localized weakness and Denies numbness Allergic/Immunologic Allergic/Immunologic: Denies throat swelling [facility] [place] Medical History (Updated 07/02/20 @ 18:11 by Katiuska Nguyen DO) Alcohol abuse Allergic rhinitis Anemia Depression DJD (degenerative joint disease) Fibromyalgia GERD (gastroesophageal reflux disease) Hiatal hernia Hypercholesterolemia Hyperlipidemia Hypertension IBS (irritable bowel syndrome) Insomnia Surgical History Arthroplasty of knee left Colonoscopy - MAC (11/18/16) ORIF right ankle Repair fracture right wrist Tonsillectomy and adenoidectomy Social History Smoking/Tobacco Use Status: Former Tobacco Use Smoking risk assessment performed?: Yes Alcohol Intake: current Alcohol Intake frequency: 0-2 drinks per day Alcohol type: wine Drug use: Never Substance use type: does not use Do you feel safe at home: Yes Do you feel safe in your relationship?: Yes Exam Const General: cooperative, healthy appearing and no acute distress [facility] Head: normal to inspection Face and sinus: normal facial exam Eyes General: appearance normal, both eyes and all related structures Pupils: PERRL EOM: EOM intact bilaterally Neck Neck: normal visual inspection and No submandibular swelling Lymphatic: no lymphadenopathy noted Chest Chest: normal inspection of the chest and no tenderness Resp Effort & Inspection: normal respiratory effort and able to speak in complete s entences Auscultation: clear to auscultation bilaterally Cardio Rate: regular rate Rhythm: regular rhythm GI Inspection: normal to inspection Palpation: soft, not firm, not rigid and nontender Auscultation: normal bowel sounds Back/Spine/Pelvis Thoracic/Lumbar Spine: thoracic and lumbar spine normal to inspection Pelvis: no pain with anterior-posterior compression Back/spine/pelvis image: 1. Tender to palpation. No erythema, edema, rash, ecchymosis or crepitus. 2. Tender to palpation. No erythema, edema, rash, ecchymosis or crepitus. Skin General skin exam: no rashes or lesions noted Neuro General: patient alert, patient awake and patient oriented x3 Cognition: normal cognition Speech: speech normal Motor: muscle tone normal throughout and strength 5/5 throughout Sensory Exam: no sensory deficits noted DTR's: Rt Patellar: 1+, Lt Patellar: 1+, Rt Ankle: 1+ and Lt Ankle: 1+ Plantar Reflexes: Equivocal: bilateral (Negative babinski bilaterally) Extrem General: full ROM, capillary refill normal, no calf tenderness bilaterally and no edema Ankle/foot/toe images: 1. Well healed scar and deformity medial malleolus. No edema or tenderness. Psych Appearance: grossly normal Mental Status: mental status grossly normal Speech and Movement: speech and movement normal Affect: normal affect
[2020-07-02] MEDS: diazePAM 5 MG TAB PO (15:56)
[2020-07-02] MEDS: oxyCODONE 5 MG TAB PO (15:56)
[2020-07-02] MEDS: Lidocaine 5% Patch 1 PATCH TP ×2 (15:57)
[2020-07-02] MEDS: Ketorolac 60 MG/2 ML VIAL IM (15:57)
--- NOTE | 2020-07-02 16:45 | DI.RAD_ITS ---
EXAM: XR CHEST 2V PA LATERAL CLINICAL HISTORY: mid back pain, r/o acute disease TECHNIQUE: 2D digital imaging was performed. COMPARISON: CR CHEST 2 VIEWS PA,LAT from 09/14/2013 FINDINGS: MEDIASTINUM: Normal. HEART: Mild cardiomegaly. PULMONARY VASCULATURE: Normal. LUNGS: Chronic pulmonary fibrosis. No acute consolidating infiltrates. PLEURAL SPACE: No pleural effusion or pneumothorax. BONE:Old compression fracture deformities of T7 and T8. OTHER FINDINGS:There is a large hiatal hernia. IMPRESSION: No acute pulmonary findings. DATA REPOSITORY: RADIATION DOSE DELIVERED:
--- NOTE | 2020-07-02 16:59 | DI.VRAD_ITS ---
PROCEDURE INFORMATION: Exam: XR Chest, 2 Views Exam date and time: 07/02/2020 3:51 PM Age: 79 years old Clinical indication: Other: Mid back pain TECHNIQUE: Imaging protocol: XR of the chest Views: 2 views. COMPARISON: CR CHEST 2 VIEWS PA,LAT 12/06/2013 4:52 PM FINDINGS: Lungs: Unremarkable. No consolidation. Pleural space: Unremarkable. No pleural effusion. No pneumothorax. Heart/Mediastinum: A large hiatal hernia is appreciated. There is mild cardiomegaly. Vasculature: Tortuous aorta is present. Calcified aortic knob. Bones/joints: Moderate multilevel degenerative changes of the spine, as manifested by multilevel anterior osteophytes and multilevel decrease in intervertebral disc space. Possible compression injuries at at least 2 midthoracic vertebra. IMPRESSION: 1. No acute cardiopulmonary pathology. 2. Possible a age indeterminate compression injuries at at least 2 midthoracic vertebra. Consider correlation with CT if clinically warranted. Dictated and Authenticated by: Constantino Cadena MD. Ordering:MARTHA Harp MD
--- NOTE | 2020-07-02 17:45 | DI.CT_ITS ---
EXAM: CT CHEST WO CLINICAL HISTORY: back spasms, possible midthoracic compression fx. TECHNIQUE: Imaging protocol: Axial computed tomography images were obtained and coronal and sagittal reformatted images were created and reviewed. COMPARISON: CT CHEST FOR PULMONARY EMBOLUS from 12/06/2013 FINDINGS: Tracheobronchial tree: Patent where visualized. Mediastinum and Felipa: No dominant adenopathy or fluid collection. Large hiatal hernia. Pulmonary parenchyma: No focal consolidating infiltrate. No pulmonary mass. There is diffuse pulmon linda interstitial fibrosis. Pleura: Small left pleural effusion. No right pleural effusion or pneumothorax. Heart: The heart is not dilated. Mild coronary artery calcification. Small pericardial effusion whic h is likely physiologic. Calcification of the aortic annulus. Aorta: Thoracic aorta non-dilated. Atherosclerosis. Upper abdomen: Unremarkable. Lymph nodes: Within normal limits. Bones:Old T7 and T8 compression fractures which appears stable compared to the examination from 2013. No acute thoracic spine fracture is noted. Degenerative changes are seen in the thoracic spin e. Soft tissues: Unremarkable. IMPRESSION: 1. Old stable T7 and T8 compression fracture deformities. No acute fracture or subluxation in the th oracic spine. 2. Chronic interstitial lung disease. 3. Small left pleural effusion. RADIATION DOSE DELIVERED: 457.49mGy.cm Total DLP 457.49mGy.cm Total DLP DATA REPOSITORY: All CT scans at this facility are submitted to the National Radiology Data Registry (NRDR) Dose Index Registry (DIR) with the [employer] (ACR). RADIATION OPTIMIZATION: All CT scans at this facility use at least one of these dose optimization te chniques: automated exposure control; mA and/or kV adjustment per patient size (includes targeted exa ms where dose is matched to clinical indication); or iterative reconstruction.
--- NOTE | 2020-07-02 18:09 | DI.VRAD_ITS ---
PROCEDURE INFORMATION: Exam: CT Chest Without Contrast Exam date and time: 07/02/2020 5:10 PM Age: 79 years old Clinical indication: Other: Back pain and mid back spasms. ; Patient HX: No trauma/ injury to mid back. ; Additional info: Added t spine reconstructions to chest wo in all three planes. TECHNIQUE: Imaging protocol: Computed tomography of the chest without contrast. Radiation optimization: All CT scans at this facility use at least one of these dose optimization techniques: automated exposure control; mA and/or kV adjustment per patient size (includes targeted exams where dose is matched to clinical indication); or iterative reconstruction. COMPARISON: CR XR CHEST 2V PA LATERAL 07/02/2020 4:43 PM FINDINGS: Lungs: Reticular scarring noted throughout the lung periphery with focal areas of honeycombing appreciated in the right upper lobe, right middle lobe, and right lower lobe. There is linear scarring in the left lung base likewise appreciated. No acute interstitial or airspace disease is appreciated at this time. The airways are patent. COPD related pulmonary changes are suggested. Pleural space: Trace left pleural effusion. Heart: The heart is not enlarged. There is calcification of the aortic valve annulus. There is mild atherosclerotic calcification of the coronary arteries. Trace pericardial effusion is most likely physiologic and of no clinical concern. Mediastinal space: A large hiatal hernia is present. Pulmonary arteries: Normal in course and caliber. Aorta: The aorta demonstrates mild atherosclerotic calcification. Aorta appears otherwise unremarkable. Lymph nodes: No adenopathy. Bones/joints: No acute skeletal pathology. Severe multilevel degenerative changes of the spine, as manifested by multilevel anterior osteophytes and multilevel decrease in intervertebral disc space. Chronic compression fractures of T7 and T8, with about 45% loss in vertebral body height at T7 and about 50-60% loss of vertebral body height at T8. There is no retropulsion of fracture fragments appreciated. Spinal canal appears patent. Soft tissues: Unremarkable. Other findings: The visualized intra-abdominal structures demonstrate no acute findings. IMPRESSION: 1. Trace left pleural effusion. Otherwise, no other acute thoracic pathology is identified. 2. Chronic interstitial lung disease, as detailed above. 3. Incidental findings as detailed above. Note is made of chronic compression fractures at T7 and T8, as detailed above. Dictated and Authenticated by: Constantino Cadena MD. Ordering:MARTHA Harp MD
[2020-07-02] MEDS: Methocarbamol 500 MG TAB 1000 MG PO (18:31)
== END 2020-07-02 18:30 | disposition home or self-care (01) ==
PROVIDERS: Emergency Provider Physician Assistant; PCP Family Medicine
DX: M62.830 Muscle spasm of back (principal); X50.9XXA Other and unspecified overexertion or strenuous movements or postures, initial encounter; S22.060A Wedge compression fracture of T7-T8 vertebra, initial encounter for closed fracture; X58.XXXA Exposure to other specified factors, initial encounter; I10 Essential (primary) hypertension
CPT/HCPCS: 71250; 93005; 96372; 99284; 71046; 93010; 99285; J1885

== ENCOUNTER 2020-09-19 03:18 | Emergency (ER) | payer MEDICARE, MEDICAID, SELFPAY ==
--- NOTE | 2020-09-19 03:15 | DI.CT_ITS ---
EXAM: CT LUMBAR SPINE RECONS CLINICAL HISTORY: fall, pain in l spine and l flank. TECHNIQUE: Imaging Protocol: Axial computed tomography images with coronal and sagittal reformatted images were created and reviewed CONTRAST MATERIAL: Noncontrast COMPARISON: CT CT CHEST WO from 07/02/[address] CHEST WO from 07/02/2020 FINDINGS: Bones: The last intervertebral disc space is designated the L5/S1 level for the numbering purpose of this examination. The vertebral body heights are well maintained. Bones are demineralized. Degener ative disc changes and facet joint the degenerative changes. Degenerative scoliosis, conevx toward r ight. Bone island L4. No fracture is seen. Bilateral neural foraminal narrowing at L1-2 and L2-3, l eft greater than right. Right neural foraminal narrowing at L4-5. Soft Tissues: The visualized SI joints show mild degenerative changes. The paraspinal soft tissues are unremarkable. IMPRESSION: Degenerative changes and scoliosis. No evidence of fracture. RADIATION DOSE DELIVERED: Total DLP DATA REPOSITORY: All CT scans at this facility are submitted to the National Radiology Data Registry (NRDR) Dose Index Registry (DIR) with the [employer] (ACR). RADIATION OPTIMIZATION: All CT scans at this facility use at least one of these dose optimization te chniques: automated exposure control; mA and/or kV adjustment per patient size (includes targeted exa ms where dose is matched to clinical indication); or iterative reconstruction.
--- NOTE | 2020-09-19 03:15 | DI.CT_ITS ---
EXAM: CT ABDOMEN PELVIS WO CLINICAL HISTORY: fall, pain in lumbar spine and left flank. TECHNIQUE: Imaging Protocol: Axial computed tomography images with coronal and sagittal reformatted images were created and reviewed. CONTRAST MATERIAL: Noncontrast COMPARISON: CT CHEST WITH CONTRAST from 07/19/[address] CHEST WO from 07/02/2020 FINDINGS: ABDOMEN: Lung Bases: Stable basilar fibrotic changes and left lower lobe pleural scarring. No pneumothorax. Liver: Normal attenuation. No measurable mass. Gallbladder and biliary tract: No radiodense calculus or dilation. Pancreas: Normal density, no calcifications or inflammatory process. Spleen: Normal. Kidneys: Normal size, contour and axis. No radiodense stones or obstructive uropathy. Small cyst upp er pole left kidney. No masses seen. Adrenal glands: No masses seen. Abdominal Aorta: Abdominal portion non-dilated. Moderate calcification. Soft tissues: Diffuse muscle atrophy. PELVIS: Bladder: Symmetric distention, no gross wall thickening. Bowel: Stable moderate-sized hiatal hernia. No obstruction or bowel wall thickening. Peritoneal cavity: No ascites, collection or mesenteric inflammatory response. Bones: Demineralized. Degenerative disc changes and facet degenerative changes. No spine or pelvic fractures. Reproductive: Unremarkable. IMPRESSION: No evidence of fracture or other acute posttraumatic abnormality. RADIATION DOSE DELIVERED: Total DLP DATA REPOSITORY: All CT scans at this facility are submitted to the National Radiology Data Registry (NRDR) Dose Index Registry (DIR) with the [employer] (ACR). RADIATION OPTIMIZATION: All CT scans at this facility use at least one of these dose optimization te chniques: automated exposure control; mA and/or kV adjustment per patient size (includes targeted exa ms where dose is matched to clinical indication); or iterative reconstruction.
[2020-09-19 03:21] VITALS: BP 136/84; PULSE 105; RESP 25; TEMP 37.1; O2SAT 100
[2020-09-19 03:26] VITALS: BP 136/84; PULSE 100; RESP 20; O2SAT 100
[2020-09-19 03:27] VITALS: RESP 18; O2SAT 100
--- NOTE | 2020-09-19 03:28 | ED.GENADUL_ITS ---
Discharge Plan Disposition Patient Disposition: HOME Condition: Good Discharge Details Clinical Impression: Fall, Back pain Primary Care Provider: Iesha Leary ED Provider: Kwame Taveras Home Meds and New Rx's Prescriptions: New lidocaine [Lidoderm] 1 PATCH patch 1 patch Topical Q24H Qty: 4 RF: 0 Continued duloxetine [Cymbalta] 20 MG capsule,delayed release(DR/EC) 30 mg PO BID RF: 0 albuterol sulfate 8.5 GM HFA aerosol inhaler 8.5 gm Inhalation Q4H PRN PRNQty: 1 RF: 0 trazodone 150 MG tablet 150 mg PO HS RF: 0 ferrous sulfate 325 MG tablet 325 mg PO TID RF: 0 esomeprazole magnesium [Nexium] 40 MG capsule,delayed release(DR/EC) 40 mg PO DAILY RF: 0 cholecalciferol (vitamin D3) [Vitamin D3] 400 UNIT tablet 800 unit PO DAILY RF: 0 glucosamine sulfate 2KCl 1,000 MG tablet 500 mg PO BID RF: 0 ascorbic acid (vitamin C) 1,000 MG tablet 4,000 mg PO DAILY RF: 0 duloxetine [Cymbalta] 60 MG capsule,delayed release(DR/EC) 90 mg PO BID RF: 0 hydrocodone-acetaminophen [Vicodin] 1 EACH tablet 1 tab PO BID RF: 0 medroxyprogesterone [Provera] 2.5 MG tablet 2.5 mg PO DAILY RF: 0 Premarin 0.3 MG tablet 0.3 mg PO QAM RF: 0 potassium chloride 20 MEQ tablet,ER particles/crystals 80 meq PO BID RF: 0 fluticasone propionate 50 mcg/actuation spray,suspension 2 spray INTRANASAL QAM RF: 0 Discharge Instructions Instructions: Back Pain (ED) Additional Instructions: At this time your CT images show no evidence of new fracture or trauma. The pain in your back is likely combination of contusion, bruised muscle, both of which are likely compounded by your fibromyalgia. Please take Tylenol and Motrin as needed for pain, I would recommend to continue to use the Lidoderm patches for pain as prescribed. Please use a heating pad on your back to help with the spasm. We will contact our case planner to see if we can get additional help for you at home. If you notice any worsening of your symptoms, or any new symptoms such as vomiting, diarrhea, fever, chills, shortness of breath, chest pain, numbness, weakness, or fainting , please return immediately to the emergency department for reevaluation. Please follow up with your primary care provider as soon as possible for reassessment and reevaluation. As always, it was a pleasure participating in your medical care today. 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 She presents today for evaluation after a fall. Patient lives alone at home, she states she get home health nursing once every 2 weeks. She states that this evening she was transitioning from the bedside commode to the bed and slipped and landed on her buttock and lower back on a hardwood floor. This happened a second time later in the evening, upon EMS/fire arrival she felt that it was best to be evaluated at the ER as it was her second fall on her buttock and lower back she was concerned as she had mild back pain after the fall. She denies any numbness or tingling. She explicitly states that she did not hit her head. She recalls the events, and states it was secondary to me trying to move too quickly. She denies any significant acute imbalance, change in vision, focal weakness, or new feelings of unsteadiness. She is not on any blood thinners. She denies any other complaints at this time. Aside for pain in her buttock and lower back she denies any chest pain, abdominal pain, leg pain, arm pain, neck pain or head pain. Physical exam demonstrates no signs of significant trauma. She has minimal tenderness from the left lumbar paraspinal region. Minimal tenderness over the 12th rib. No other focal pain. Lower extremities demonstrate good strength and sensation. No other signs of trauma over the rest of her exam. Per patient history there was no evidence of syncope, striking of the head, or precursory symptoms of lightheadedness vision changes or room spinning sensation. Per patient and history fall appears to be more of the mechanical base. She has no fever or chills, no urinary frequency. No indication to suggest infectious etiology. With symptoms appearing mechanical in nature, we will get CT scan of the lumbar spine hips and back. We will give Lidoderm patch and Toradol. 5:[address] scan results have returned, per virtual radiology no evidence of acute traumatic process. No fracture. Notable stenosis is present. On reassessment after Toradol and Lidoderm patch the patient is feeling much better, she is sleeping and resting comfortably. She states that she feels well and would like the pain patch for home use. We will give Lidoderm patch prescription for home. Patient has made it clear that she does wish she had additional help and assistance at home. We will place a case management referral for additional home health help. With no signs of significant traumatic process, and the patient being back to her normal baseline in regards to her mobility and functionality, in addition to her pain now being resolved after Toradol and Lidoderm patch feel that the patient can be discharged home. I have extensively reviewed the treatment plan and discharge instructions with the patient. I have addressed all patient concerns at this time. The patient was made aware of what symptoms to monitor for that would warrant a return to the emergency department. Discussed the plan with the patient, they demonstrate verbal understanding and agreement with our assessment and plan at this time. The documentation in this chart was dictated using [employer] dictation software. Please excuse any dictation errors. IMPRESSION: 1. No lumbar spine fracture. 2. Mild lumbar scoliosis convex towards the right 3. 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 Dictated and Authenticated by: Audie Mccoy MD 09/19/2020 5:41 AM Eastern Time ([place] IMPRESSION: 1. No evidence for acute trauma in the abdomen and pelvis 2. Small atelectasis versus infiltrate in the lower lobes. 3. Tiny left pleural effusion 4. Hiatal hernia Thank you for allowing us to participate in the care of your patient. Dictated and Authenticated by: Audie Mccoy MD 09/19/2020 5:18 AM Eastern Time ([place]) HPI General Date/Time Provider Initiated Documentation: 09/19/20 03:38 . 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 She presents today for evaluation after a fall. Patient lives alone at home, she states she get home health nursing once every 2 weeks. She states that this evening she was transitioning from the bedside commode to the bed and slipped and landed on her buttock and lower back on a hardwood floor. This happened a second time later in the evening, upon EMS/fire arrival she felt that it was best to be evaluated at the ER as it was her second fall on her buttock and lower back she was concerned as she had mild back pain after the fall. She denies any numbness or tingling. She explicitly states that she did not hit her head. She recalls the events, and states it was secondary to me trying to move too quickly. She denies any significant acute imbalance, change in vision, focal weakness, or new feelings of unsteadiness. She is not on any blood thinners. She denies any other complaints at this time. Aside for pain in her buttock and lower back she denies any chest pain, abdominal pain, leg pain, arm pain, neck pain or head pain. Related Data Home Medications Medication Instructions Recorded Confirmed albuterol sulfate 8.5 gm INHALATION Q4H PRN PRN #1 07/22/13 09/19/20 [email or web address] cholecalciferol (vitamin D3) 800 unit PO DAILY 12/06/13 09/19/20 [Vitamin D3] esomeprazole magnesium [Nexium] 40 mg PO DAILY 12/06/13 09/19/20 ferrous sulfate 325 mg PO TID 12/06/13 09/19/20 glucosamine sulfate 2KCl 500 mg PO BID 12/06/13 09/19/20 trazodone 150 mg PO HS 12/06/13 09/19/20 ascorbic acid (vitamin C) 4,000 mg PO DAILY 03/22/14 09/19/20 duloxetine [Cymbalta] 90 mg PO BID 11/15/16 09/19/20 hydrocodone-acetaminophen [Vicodin] 1 tab PO BID 11/15/16 09/19/20 Premarin 0.3 mg PO QAM 11/18/16 09/19/20 medroxyprogesterone [Provera] 2.5 mg PO DAILY 11/18/16 09/19/20 potassium chloride 80 meq PO BID 11/25/16 09/19/20 duloxetine [Cymbalta] 30 mg PO BID tab-cap 11/08/17 09/19/20 fluticasone propionate 2 spray INTRANASAL QAM 09/19/20 09/19/20 lidocaine [Lidoderm] 1 patch TOPICAL Q24H #4 ea 09/19/20 Previous Rx's Medication Instructions Recorded albuterol sulfate 8.5 gm INHALATION Q4H PRN PRN #1 07/22/13 [email or web address] lidocaine [Lidoderm] 1 patch TOPICAL Q24H #4 ea 09/19/20 Allergies Allergy/AdvReac Type Severity Reaction Status Date / Time fentanyl AdvReac Verified 07/02/20 16:04 General Stated Complaint: Nk/Back Pain MELISSA: 3 Review of Systems All systems reviewed & are unremarkable except as noted in HPI and below PFSH Medical History Alcohol abuse Allergic rhinitis Anemia Depression DJD (degenerative joint disease) Fibromyalgia GERD (gastroesophageal reflux disease) Hiatal hernia Hypercholesterolemia Hyperlipidemia Hypertension IBS (irritable bowel syndrome) Insomnia Surgical History Arthroplasty of knee left Colonoscopy - MAC (11/18/16) ORIF right ankle Repair fracture right wrist Tonsillectomy and adenoidectomy Social History Smoking/Tobacco Use Status: Former Tobacco Use Smoking risk assessment performed?: Yes Alcohol Intake: current Alcohol Intake frequency: 0-2 drinks per day Alcohol type: wine Drug use: Never Substance use type: does not use Do you feel safe at home: Yes Do you feel safe in your relationship?: Yes Exam Narrative Exam Narrative: 1.Const: Well-nourished, Well-developed, appearing stated age 2.Eyes: PERRL, no conjunctival injection, and symmetrical lids. 3.ENT: Atraumatic external nose and ears. Moist MM. Neck: Symmetric, trachea midline, No thyromegaly. There is no evidence of raccoon eyes, montero sign, CSF rhinorrhea, mastoid tenderness, cranial crepitus, hemotympanum, exophthalmos, or hyphema. Patient demonstrates intact dentition with no signs of tooth avulsion or fracture, no signs of jaw deformity, no evidence of a LeFort's fracture, with an intact palate, nose and orbital region. There is no evidence of a nasal septal hematoma. No proptosis. Jaw closes symmetrically. Airway is clear. 4.CVS: +S1/S2, No murmurs or gallops. Peripheral pulses 2+ and equal in all extremities. Brisk capillary refill in all extremities. 5.RESP: Unlabored respiratory effort. Clear to auscultation bilaterally. No wheezes rales or rhonchi 6.GI: Soft, Nontender/Nondistended, No hepatosplenomegaly. No guarding or rebound. 7.MSK: Normocephalic/Atraumatic, Extremities w/o deformity or ttp No cyanosis or clubbing, Normal movement of all extremities. Patient demonstrates no midline cervical thoracic or lumbar spine tenderness. She does demonstrate mild left lower lumbar and mid lumbar paraspinal tenderness. Mild tenderness around the 12th rib, on the left but no other focal pain. No abdominal pain or hip pain. No pain with logroll of her legs. She demonstrates good flexion extension of her lower extremities, good sensation throughout, no signs of saddle anesthesia. 8.Skin: Warm, Dry. No rashes or lesions. 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 Sensation grossly intact, no focal neurologic deficits. 10.Psych: (AAO) x3. Appropriate mood and affect Course Vital Signs Vital signs: Vital Signs Temperature 37.1 C 09/19/20 03:21 Pulse 105 H 09/19/20 03:21 Respiratory Rate 25 H 09/19/20 03:21 Blood Pressure 136/84 09/19/20 03:21 Pulse Oximetry 100 09/19/20 03:21 Temperature 37.1 C 09/19/20 03:21 Pulse 105 H 09/19/20 03:21 Respiratory Rate 25 H 09/19/20 03:21 Blood Pressure 136/84 09/19/20 03:21 Pulse Oximetry 100 09/19/20 03:21 Pain Level 5 09/19/20 03:21
[2020-09-19 03:30] VITALS: PULSE 99; RESP 24; O2SAT 100
[2020-09-19] MEDS: Ketorolac 30 MG/ML VIAL IM (04:10)
[2020-09-19] MEDS: Lidocaine 5% Patch 1 PATCH TP (04:10)
[2020-09-19 04:46] VITALS: O2SAT 100
[2020-09-19 04:47] VITALS: BP 133/89; PULSE 90
--- NOTE | 2020-09-19 05:18 | DI.VRAD_ITS ---
PROCEDURE INFORMATION: Exam: CT Abdomen And Pelvis Without Contrast Exam date and time: 09/19/2020 3:28 AM Age: 79 years old Clinical indication: Injury or trauma; Fall; Blunt; Generalized; Injury date: 09/19/20; Injury details: Fell in home TECHNIQUE: Imaging protocol: Computed tomography of the abdomen and pelvis without contrast. Reformatted images were created and reviewed. Radiation optimization: All CT scans at this facility use at least one of these dose optimization techniques: automated exposure control; mA and/or kV adjustment per patient size (includes targeted exams where dose is matched to clinical indication); or iterative reconstruction. COMPARISON: No relevant prior studies available. FINDINGS: Lungs: Small atelectasis versus infiltrate in the lower lobes. Pleural spaces: Tiny left pleural effusion Mediastinal space: Hiatal hernia Liver: No acute abnormality. Gallbladder and bile ducts: No stones. No ductal dilation. Pancreas: No ductal dilation. Spleen: No acute abnormality. Adrenal glands: Normal. No mass. Kidneys and ureters: No ureter or obstructing renal stones. No hydronephrosis. Small left renal cyst Stomach and bowel: No bowel obstruction. Appendix: No evidence of appendicitis. Intraperitoneal space: No free air. No significant fluid collection. Vasculature: No abdominal aortic aneurysm. Lymph nodes: No enlarged lymph nodes. Urinary bladder: Unremarkable as visualized. Reproductive: No acute findings. Bones/joints: No acute fracture. Soft tissues: No acute findings. IMPRESSION: 1. No evidence for acute trauma in the abdomen and pelvis 2. Small atelectasis versus infiltrate in the lower lobes. 3. Tiny left pleural effusion 4. Hiatal hernia Dictated and Authenticated by: Audie Mccoy MD. Ordering:SWAPNIL Puente MD
--- NOTE | 2020-09-19 05:41 | DI.VRAD_ITS ---
PROCEDURE INFORMATION: Exam: CT Lumbar Spine Without Contrast Exam date and time: 09/19/2020 3:28 AM Age: 79 years old Clinical indication: Injury or trauma; Fall; Blunt trauma (contusions or hematomas); Injury date: 09/19/20; Injury details: Fell in home, lower back pain TECHNIQUE: Imaging protocol: Computed tomography images of the lumbar spine without contrast. Reformatted images were created and reviewed. Radiation optimization: All CT scans at this facility use at least one of these dose optimization techniques: automated exposure control; mA and/or kV adjustment per patient size (includes targeted exams where dose is matched to clinical indication); or iterative reconstruction. COMPARISON: No relevant prior studies available. FINDINGS: Vertebrae: No acute fracture. Mild lumbar scoliosis convex towards the right Discs/Spinal canal/Neural foramina: No acute findings. Moderate osteophytes and vacuum discs at multiple levels. Large left foraminal stenosis at L1-L2 from uncovertebral spurring Soft tissues: Unremarkable. IMPRESSION: 1. No lumbar spine fracture. 2. Mild lumbar scoliosis convex towards the right 3. Large left foraminal stenosis at L1-L2 from uncovertebral spurring Dictated and Authenticated by: Audie Mccoy MD. Ordering:SWAPNIL Puente MD
--- NOTE | 2020-09-19 05:55 | NUR.NOTE ---
gave C M a referral for more help at home see chart Raza Dobson Note:
== END 2020-09-19 06:46 | disposition home or self-care (01) ==
LOC: ER 06:02
PROVIDERS: Emergency Provider Student in an Organized Health Care Education/Training Program; PCP Family Medicine
DX: S30.0XXA Contusion of lower back and pelvis, initial encounter (principal); W05.0XXA Fall from non-moving wheelchair, initial encounter; R27.0 Ataxia, unspecified
CPT/HCPCS: 96372; 99285; 72131; 74176; J1885

== ENCOUNTER 2022-03-19 03:48 | Inpatient (IN) | payer MEDICARE, MEDICAID, SELFPAY ==
[2022-03-19 03:52] VITALS: BP 131/67; PULSE 100; RESP 16; TEMP 36.6; O2SAT 98
--- NOTE | 2022-03-19 04:00 | DI.CT_ITS ---
Exam(s) CT THORACIC LUMBAR SPINE WO EXAM: CT THORACIC LUMBAR SPINE WO CLINICAL HISTORY: fall, pain TECHNIQUE: COMPARISON: CT CT CHEST WO from 07/02/[address] LUMBAR SPINE RECONS from 09/19/2020 FINDINGS: CT examination of thoracic and lumbar spine was performed according to the usual protocol. Examinati on is compared with prior chest CT of June 2020. There is a new compression fracture of T12 vert ebral body since the prior examination with vertebra plana deformity. There is a an old T8 vertebra plana deformity and old T7 moderate anterior compression deformity. There is a new T6 anterior verte bral body compression deformity. No gross spinal canal compromise seen. No gross soft tissue mass i dentified in the region surveyed. No lumbar compression fracture. There is a large hiatal hernia. Visualized lungs show changes of scarring but no focal abnormality. No gross retroperitoneal adenopathy. Grossly unremarkable appearance of kidneys. IMPRESSION: Old and new vertebral compression deformities as described above.No significant spinal canal compromi se or evidence of pathologic fracture. RADIATION DOSE DELIVERED: 1,152.92mGy.cm Total DLP !Error CTDIvol RADIATION OPTIMIZATION: All CT scans at this facility use at least one of these dose optimization te chniques: automated exposure control; mA and/or kV adjustment per patient size (includes targeted exa ms where dose is matched to clinical indication); or iterative reconstruction.
--- NOTE | 2022-03-19 04:10 | ED.GENADUL_ITS ---
Discharge Plan Disposition Patient Disposition: [facility] INPATIENT Condition: Stable Discharge Details Clinical Impression: Fall, Compression fx, thoracic spine Primary Care Provider: Iesha Leary ED Provider: Manohar Trejo Home Meds and New Rx's Prescriptions: No Action duloxetine [Cymbalta] 20 MG capsule,delayed release(DR/EC) 30 mg PO BID Label Comments: 11.08. pt unsure of dosage.HE albuterol sulfate 8.5 GM HFA aerosol inhaler 8.5 gm Inhalation Q4H PRN PRNQty: 1 0RF trazodone 150 MG tablet 150 mg PO HS ferrous sulfate 325 MG tablet 325 mg PO TID esomeprazole magnesium [Nexium] 40 MG capsule,delayed release(DR/EC) 40 mg PO DAILY cholecalciferol (vitamin D3) [Vitamin D3] 400 UNIT tablet 800 unit PO DAILY glucosamine sulfate 2KCl 1,000 MG tablet 500 mg PO BID ascorbic acid (vitamin C) 1,000 MG tablet 4,000 mg PO DAILY duloxetine [Cymbalta] 60 MG capsule,delayed release(DR/EC) 90 mg PO BID hydrocodone-acetaminophen [Vicodin] 1 EACH tablet 1 tab PO BID medroxyprogesterone [Provera] 2.5 MG tablet 2.5 mg PO DAILY Premarin 0.3 MG tablet 0.3 mg PO QAM potassium chloride 20 MEQ tablet,ER particles/crystals 80 meq PO BID fluticasone propionate 50 mcg/actuation spray,suspension 2 spray INTRANASAL QAM Label Comments: SPRAY ONE SPRAY IN EACH NOSTRIL TWICE A DAY lidocaine [Lidoderm] 1 PATCH patch 1 patch Topical Q24H Qty: 4 0RF Medical Decision Making 81 yo female with hx of dejenerative joint dsiease, fibromyalgia, htn, gerd, who comes in with ems with complaints of back spasms. She states she gets back spasms every once in a while and on chart review has been seen several times for this in the past. She had a spasm 2 days ago and fell landing on her back. She localizes the spasm to the midline of the lumbar and lower thoracic back, has no stepoffs, nor other visible or palpable deformities. No cva tenderness, no saddle anesthesia. Normal sensation in the legs. Denies any fevers or chills. Her pain seems most consistent with muscle spasm vs pain due to degenerative spine, no findings on history or exam to suggest infectious etiology, spinal epidural abscess or cauda equina. Will obtain noncontrast ct given the recent fall to evaluate for fracture and also treat with im toradol and po valium. No cva tenderness, no flank pain, no abdominal tenderness so doubt entities such as pyelo, kidney stone, or surgical pathology such as appendicitis or sbo. pt feels mildly improved though still has pain when trying to sit up. She does have compressure fractures of T6, T7, T8, T12 along with multilevel degenerative changes. She doesn't feel comfortable going home in current state and she is high risk of falling, will admit for pain control and also to work with PT Differential Diagnosis Differential Diagnosis: fracture, spasm, chronic pain Imaging Data Radiologic Study: Attestation: I personally reviewed and interpreted this imaging study as follows: Imaging: CT Scan Radiologist's impression: IMPRESSION: 1. Compression fractures of T12 and T8 with vertebra plana deformities. Compression fractures of T6 and T7 with approximately 50% loss of height. 2. Multilevel degenerative changes. HPI General Mode of arrival: EMS . Date/Time Provider Initiated Documentation: 03/19/22 03:59 . Limitations to Documentation: no limitations . Information obtained by: patient . History of Present Illness 81 year old F presents to the emergency department with the chief complaint of back pain, described as moderate, Quality is described as aching and other (spasm), and is localized to the back. Patient reports no radiation. Patient started experiencing this day(s) (4) and it has been intermittent. No relieving factors improve symptom(s), No exacerbating factors reported . Patient notes no other symptoms.. Related Data Home Medications Medication Instructions Recorded Confirmed albuterol sulfate 90 mcg/actuation 8.5 gm inhalation Q4H PRN PRN ##1 07/22/13 03/19/22 aerosol inhaler cholecalciferol (vitamin D3) 10 800 unit PO DAILY 12/06/13 03/19/22 mcg (400 unit) tablet (Vitamin D3) esomeprazole magnesium 40 mg 40 mg PO DAILY 12/06/13 03/19/22 capsule,delayed release (Nexium) ferrous sulfate 325 mg (65 mg 325 mg PO TID 12/06/13 03/19/22 iron) tablet glucosamine sulfate 2KCl 1,000 mg 500 mg PO BID 12/06/13 03/19/22 tablet trazodone 150 mg tablet 150 mg PO HS 12/06/13 03/19/22 ascorbic acid (vitamin C) 1,000 mg 4,000 mg PO DAILY 03/22/14 03/19/22 tablet duloxetine 60 mg capsule,delayed 90 mg PO BID 11/15/16 03/19/22 release (Cymbalta) hydrocodone 5 mg-acetaminophen 300 1 tab PO BID 11/15/16 03/19/22 mg tablet (Vicodin) conjugated estrogens 0.3 mg tablet 0.3 mg PO QAM 11/18/16 03/19/22 (Premarin) medroxyprogesterone 2.5 mg tablet 2.5 mg PO DAILY 11/18/16 03/19/22 (Provera) potassium chloride 20 mEq 80 meq PO BID 11/25/16 03/19/22 tablet,extended release(part/cryst) duloxetine 20 mg capsule,delayed 30 mg PO BID 11/08/17 03/19/22 release (Cymbalta) fluticasone propionate 50 2 spray intranasal QAM 09/19/20 03/19/22 mcg/actuation nasal spray,suspension lidocaine 5 % topical patch 1 patch topical Q24H #4 ea 09/19/20 03/19/22 (Lidoderm) Previous Rx's Medication Instructions Recorded albuterol sulfate 90 mcg/actuation 8.5 gm inhalation Q4H PRN PRN ##1 07/22/13 aerosol inhaler lidocaine 5 % topical patch 1 patch topical Q24H #4 ea 09/19/20 (Lidoderm) Allergies Allergy/AdvReac Type Severity Reaction Status Date / Time fentanyl AdvReac Verified 03/19/22 03:59 General Stated Complaint: Nk/Back Pain MELISSA: 3 Review of Systems All systems reviewed & are unremarkable except as noted in HPI and below Constitutional Constitutional: Denies chills, Denies fever(s) and Denies weakness Eyes Eyes: Denies loss of vision ENT Ears, Nose, Mouth, and Throat: Denies change in voice Cardiovascular Cardiovascular: Denies chest pain and Denies dyspnea Respiratory Respiratory: Denies cough and Denies dyspnea Gastrointestinal Gastrointestinal: Denies abdominal pain, Denies nausea and Denies vomiting Genitourinary Genitourinary: Denies dysuria Musculoskeletal Musculoskeletal: Denies joint swelling Integumentary/Breasts Skin/Breast: Denies rash Neurologic Neurologic: Denies loss of vision and Denies weakness PFSH All Active Problems (Updated 03/19/22 @ 05:31 by Manohar Trejo MD) Fall (Acute) Compression fx, thoracic spine (Acute) Osteoarthritis of left knee (Acute) 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 fell down and could not get up Hypertension (Chronic) with labile blood pressure. Morbid obesity (Chronic) Allergic rhinitis (Chronic) Hyperlipidemia (Chronic) History of anemia (Chronic) Fibromyalgia (Chronic) DJD (degenerative joint disease) (Chronic) Chronic depression (Chronic) Insomnia (Chronic) Gastroesophageal reflux disease (Chronic) Hiatal hernia (Chronic) Irritable bowel syndrome (Chronic) History of surgery (Chronic) a. S/P open right ankle fracture/dislocation. b. Left knee arthroscopy. c. Right wrist fracture repair. d. T/A as a child. Dehydration, mild (Acute 09/22/14) Housing or economic circumstance (Chronic 09/22/14) a. No heat for 1-1/2 days H/O fall (Chronic) Anemia (Chronic) Person living alone (Chronic 09/22/14) Alcohol withdrawal delirium (Acute 09/22/14) Rhabdomyolysis (Acute 09/22/14) Alcohol dependence (Chronic) Ataxia (Chronic) COPD (chronic obstructive pulmonary disease) (Chronic) Onychomycosis (Chronic) Depression (Chronic) Medical History Alcohol abuse Allergic rhinitis Anemia Depression DJD (degenerative joint disease) Fibromyalgia GERD (gastroesophageal reflux disease) Hiatal hernia Hypercholesterolemia Hyperlipidemia Hypertension IBS (irritable bowel syndrome) Insomnia Surgical History Arthroplasty of knee left Colonoscopy - MAC (11/18/16) ORIF right ankle Repair fracture right wrist Tonsillectomy and adenoidectomy Social History Smoking/Tobacco Use Status: Former Tobacco Use Smoking risk assessment performed?: Yes Alcohol Intake: current Alcohol Intake frequency: 0-2 drinks per day Alcohol type: wine Drug use: Daily Substance use type: marijuana Do you feel safe at home: Yes Do you feel safe in your relationship?: Yes Exam Const General: no acute distress Orientation: alert HENMT Head: normal to inspection Ears: external ears normal General nose exam: external nose normal Mouth: moist mucous membranes Eyes General: appearance normal, both eyes and all related structures Neck Neck: normal visual inspection Resp Effort & Inspection: normal respiratory effort and able to speak in complete sentences Cardio Rate: regular rate Back/Spine/Pelvis Back: no CVA tenderness Skin General skin exam: no rashes or lesions noted Neuro General: patient alert and patient oriented x3 Extrem General: normal to inspection Psych Mental Status: mental status grossly normal Course Vital Signs Vital signs: Vital Signs Temperature 36.6 C 03/19/22 03:52 Pulse 100 H 03/19/22 03:52 Respiratory Rate 16 03/19/22 03:52 Blood Pressure 131/67 03/19/22 03:52 Pulse Oximetry 98 03/19/22 03:52 Temperature 36.6 C 03/19/22 03:52 Temperature Source Temporal Artery Scan 03/19/22 03:52 Pulse 100 H 03/19/22 03:52 Respiratory Rate 16 03/19/22 03:52 Respiratory Effort 03/19/22 03:52 Blood Pressure 131/67 03/19/22 03:52 Blood Pressure Position Supine 03/19/22 03:52 Pulse Oximetry 98 03/19/22 03:52 Oxygen Delivery Method Room Air 03/19/22 03:52 Oxygen Flow Rate 0 03/19/22 03:52 Pain Level 10 03/19/22 03:52 PAWSS Have you Been Recently Intoxicated or Drunk Within the Last 30 days?: Yes Have you Ever Experienced Previous Episodes of Alcohol Withdrawal?: No Have you ever Experienced Withdrawal Seizures?: No Have you ever Experienced Delirium Tremens(DT)s?: No Have you ever undergone Alcohol Rehabilitation Treatment (i.e, inpt ot outpatient treatment programs)?: Yes Have you ever Experienced Blackouts?: No Have you ever Combined Alcohol with other Downers within the last 90 days?: No Have you ever Combined Alcohol with any other Substance of Abuse during the last 90 days?: No Positive Blood Alcohol level on Presentation? [PCS.BAL]: No Evidence of Increased Autonomic Activity (i.e. HR>120, tremor, sweating, agitation, nausea)?: No Result: 2
[2022-03-19] MEDS: Ketorolac 15 MG/ML VIAL IM (04:18)
[2022-03-19] MEDS: diazePAM 5 MG TAB PO (04:18)
--- NOTE | 2022-03-19 05:19 | DI.VRAD_ITS ---
PROCEDURE INFORMATION: Exam: CT Thoracic Spine Without Contrast Exam date and time: 03/19/2022 4:30 AM Age: 81 years old Clinical indication: Injury or trauma; Blunt trauma (contusions or hematomas); Injury date: 03/19/22; Injury details: Fall, back pain TECHNIQUE: Imaging protocol: Computed tomography of the thoracic spine without contrast. Radiation optimization: All CT scans at this facility use at least one of these dose optimization techniques: automated exposure control; mA and/or kV adjustment per patient size (includes targeted exams where dose is matched to clinical indication); or iterative reconstruction. COMPARISON: CT ABDOMEN PELVIS WO 09/19/2020 3:44 AM FINDINGS: Bones/joints: There is a compression fracture of T12, with a vertebra plana appearance. Compression fracture of T8, with a vertebral plana deformity. Compression fractures of T6 and T7, with approximately 50% loss of height. Dextroscoliosis of the thoracic spine. Discs/Spinal canal/Neural foramina: No significant disc protrusion. No severe spinal canal stenosis. No significant neural foraminal narrowing. Soft tissues: Unremarkable. Vasculature: Abdominal aortic atherosclerotic plaque. Infrarenal abdominal aortic ectasia is present. Mediastinum: There is a large hiatal hernia. Kidneys and ureters: Left simple renal cyst. IMPRESSION: 1. Compression fractures of T12 and T8 with vertebra plana deformities. Compression fractures of T6 and T7 with approximately 50% loss of height. 2. Additional findings as above. PROCEDURE INFORMATION: Exam: CT Lumbar Spine Without Contrast Exam date and time: 03/19/2022 4:30 AM Age: 81 years old Clinical indication: Injury or trauma; Blunt trauma (contusions or hematomas); Injury date: 03/19/22; Injury details: Fall, back pain TECHNIQUE: Imaging protocol: Computed tomography of the lumbar spine without contrast. Radiation optimization: All CT scans at this facility use at least one of these dose optimization techniques: automated exposure control; mA and/or kV adjustment per patient size (includes targeted exams where dose is matched to clinical indication); or iterative reconstruction. COMPARISON: CT LUMBAR SPINE RECONS 09/19/2020 3:44 AM FINDINGS: Bones/joints: No visualized fracture. Discs/Spinal canal/Neural foramina: Intervertebral disc space narrowing and vacuum disc phenomenon at L2-L3 and L4-L5. Soft tissues: Unremarkable. IMPRESSION: 1. No evidence of acute fracture or other abnormality. 2. Multilevel degenerative changes. Dictated and Authenticated by: Gray Vega MD. Ordering:LATESHA Villela MD
[2022-03-19 05:50] LABS: Abs Immature Grans 0.03 10^3/uL (0.0-0.06); Absolute Basophil Count 0.03 10^3/uL (0.0-0.2); Absolute Eosinophil Count 0.05 10^3/uL (0.0-0.7); Absolute Lymphocyte Count 1.17 10^3/uL (1.2-3.4); Absolute Monocyte Count 0.66 10^3/uL (0.1-0.8); Absolute Neutrophil Count 5.07 10^3/uL (1.2-6.7); Basophils % 0.4; Eosinophils % 0.7; HCT 36.8 % (36.0-46.0); HGB 12.6 g/dL (11.2-15.7); Immature Grans % 0.4; Lymphocytes % 16.7; MCH 35.2 pg (27.0-33.0); MCHC 34.2 % (32.0-36.0); MCV 103 fL (80-95); MPV 9.4 fL (8.0-11.0); Monocytes % 9.4; Neutrophils % 72.4; Platelet Count 232 10^3/uL (130-400); RBC 3.58 10^6/uL (3.93-5.22); RDW 13.3 % (11.7-14.6); RDW-SD 50.4 fL; WBC 7.01 10^3/uL (4.4-10.8)
[2022-03-19] MEDS: oxyCODONE 5 MG TAB PO (06:00)
[2022-03-19 06:05] LABS: Source Nasal/Nares
[2022-03-19 06:09] LABS: ALT 21 U/L (14-59); AST 29 U/L (15-37); Albumin 2.8 g/dL (3.4-5.0); Alkaline Phosphatase 134 U/L (46-116); Anion Gap 7.9 mmol/L (3-11); BUN 9 mg/dL (7-18); Bilirubin, Total 0.6 mg/dL (0.2-1.0); CO2 27.1 mmol/L (21.0-32.0); CREATININE 0.7 mg/dL (0.55-1.02); Calcium 8.3 mg/dL (8.5-10.1); Chloride 102 mmol/L (98-107); Glucose 89 mg/dL (74-106); Potassium 4.2 mmol/L (3.5-5.1); Sodium 137 mmol/L (136-145)
[2022-03-19 06:13] VITALS: BP 138/67; PULSE 94; RESP 16; TEMP 36.6; O2SAT 97
[2022-03-19 06:33] VITALS: BP 144/79; PULSE 96; RESP 16; TEMP 37.2; O2SAT 98
--- NOTE | 2022-03-19 06:35 | W.PM.HP.N ---
Date of service: 03/19/22 Time of Service: 06:35 Assessment and Plan Assessment and plan (1) Compression fx, thoracic spine: Status: Acute Assessment and plan: Patient is being admitted for observation for pain management and physical therapy due to acute injury and inability to care for herself at home. She is already on chronic hydrocodone so I will increase frequency of this to start for pain management. She can also continue baclofen prn short term. Physical therapy ordered. (2) COPD (chronic obstructive pulmonary disease): Status: Chronic Assessment and plan: Lung exam benign, no active COPD. (3) Chronic depression: Status: Chronic Assessment and plan: Mood appears stable. Per med reconciliation she is on an extremely high dose of duloxetine, will Rx maximum dose range of 120mg/day (4) Chronic pain disorder: Status: Chronic Assessment and plan: This fall complicates chronic pain related to DJD, fibromyalgia. She is on chornic opioids and SNRI as above. (5) Menopausal disorder: Status: Acute Assessment and plan: She is on estrogen/progesterone, which is not typical at her age. I will not change this as I don't want to worsening mental health status, defer to PCP. (6) Alcohol abuse: Assessment and plan: The patient does have a history of documented withdrawal, though her current levels are risky but have moderated. LFTs okay, MCV likely reflects EtOH. Given uncertainty of history, CIWA ordered. (7) DVT prophylaxis: Status: Acute Assessment and plan: LMWH (8) Discharge planning issues: Status: Acute Assessment and plan: Patient may be discharged when mobile enough to care for herself, or if placed in short term rehab. History of Present Illness History of Present Illness Chief Complaint: back pain after fall Narrative: 81 yo F who lives alone, with history of alcohol use disorder, chronic pain on low dose opioids, presented to the emergency room a day and a half after a fall at home associated with severe back pain. Elvi states she tripped on a rug in her home and fell on the evening of 03/17/22. She was able to get back into her wheelchair and back to bed. The next day she called her PCP and was given some baclofen but she wasn't able to fill it until the evening. She took one, but that night she was in such pain she realized she couldn't take care of herself and called the ambulance. Pain is sharp and severe in the mid back. Hurts to move torso, causes waves of pain. She cannot sit up on her own. Hurts to breath. Pain stays in back, not down arms or legs or up to neck. No new numbness or weakness in legs. No change in bowel or bladder habits. She has some pain medication at home but this is worse than pain she has felt in the past. Review of Systems Constitutional Constitutional: Reports as per HPI, Denies chills, Denies fever(s), Reports frequent falls, Denies headache(s) and Reports lethargy Eyes Eyes: Denies change in vision and Denies irritation ENT Ears, Nose, Mouth, and Throat: Denies dizziness, Denies headache(s), Denies nasal congestion, Denies nasal discharge and Denies sore throat Cardiovascular Cardiovascular: Denies chest pain, Denies syncope, Denies lightheadedness, Denies palpitations, Denies dyspnea and Denies orthopnea Respiratory Respiratory: Denies cough, Denies excessive phlegm production, Denies dyspnea and Denies wheezing Gastrointestinal Gastrointestinal: Denies abdominal pain, Denies melena, Denies hematochezia, Denies change in bowel habits, Denies heartburn, Reports loose stools (chronic colitis) and Denies vomiting Genitourinary Genitourinary: Denies hematuria and Denies dysuria Musculoskeletal Musculoskeletal: Reports as per HPI Integumentary/Breasts Skin/Breast: Denies rash, Reports sores (on ears) and Denies wounds Neurologic Neurologic: Denies behavioral changes, Denies dizziness, Denies syncope, Reports frequent falls, Denies headache(s) and Denies sensory deficit Psychiatric Psychiatric: Denies behavioral changes and Denies mood swings Endocrine Endocrine: Denies palpitations Hematologic/Lymphatic Hematologic/Lymphatic: Denies easy bleeding Allergic/Immunologic Allergic/Immunologic: Denies wheezing PFSH All Active Problems (Updated 03/19/22 @ 06:54 by Audie Richmond) Menopausal disorder (Acute) Discharge planning issues (Acute) DVT prophylaxis (Acute) Chronic pain disorder (Chronic) Fall (Acute) Compression fx, thoracic spine (Acute) Osteoarthritis of left knee (Acute) 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 fell down and could not get up Hypertension (Chronic) with labile blood pressure. Morbid obesity (Chronic) Allergic rhinitis (Chronic) Hyperlipidemia (Chronic) History of anemia (Chronic) Fibromyalgia (Chronic) DJD (degenerative joint disease) (Chronic) Chronic depression (Chronic) Insomnia (Chronic) Gastroesophageal reflux disease (Chronic) Hiatal hernia (Chronic) Irritable bowel syndrome (Chronic) History of surgery (Chronic) a. S/P open right ankle fracture/dislocation. b. Left knee arthroscopy. c. Right wrist fracture repair. d. T/A as a child. Dehydration, mild (Acute 09/22/14) Housing or economic circumstance (Chronic 09/22/14) a. No heat for 1-1/2 days H/O fall (Chronic) Anemia (Chronic) Person living alone (Chronic 09/22/14) Alcohol withdrawal delirium (Acute 09/22/14) Rhabdomyolysis (Acute 09/22/14) Alcohol dependence (Chronic) Ataxia (Chronic) COPD (chronic obstructive pulmonary disease) (Chronic) Onychomycosis (Chronic) Depression (Chronic) Medical History Alcohol abuse Allergic rhinitis Anemia Depression DJD (degenerative joint disease) Fibromyalgia GERD (gastroesophageal reflux disease) Hiatal hernia Hypercholesterolemia Hyperlipidemia Hypertension IBS (irritable bowel syndrome) Insomnia Surgical History Arthroplasty of knee left Colonoscopy - MAC (11/18/16) ORIF right ankle Repair fracture right wrist Tonsillectomy and adenoidectomy Social History (Updated 03/19/22 @ 06:43 by Audie Richmond) Smoking/Tobacco Use Status: Former Tobacco Use Smoking risk assessment performed?: Yes Alcohol Intake: current Alcohol Intake frequency: 0-2 drinks per day Alcohol type: wine Details: 1/2 bottle of wine/day Drug use: Daily Substance use type: marijuana Details: two tokes for sleep Do you feel safe at home: Yes Do you feel safe in your relationship?: Yes Additional Social history: Lives alone in home in [facility], has a cat. One sister in [place] Meds Allergies and Home Medications Allergies Allergy/AdvReac Type Severity Reaction Status Date / Time fentanyl AdvReac Verified 03/19/22 03:59 Home Medications Medication Instructions Recorded Confirmed Type albuterol sulfate 90 mcg/actuation 8.5 gm inhalation Q4H PRN PRN ##1 07/22/13 03/19/22 Rx aerosol inhaler cholecalciferol (vitamin D3) 10 800 unit PO DAILY 12/06/13 03/19/22 History mcg (400 unit) tablet (Vitamin D3) esomeprazole magnesium 40 mg 40 mg PO DAILY 12/06/13 03/19/22 History capsule,delayed release (Nexium) ferrous sulfate 325 mg (65 mg 325 mg PO TID 12/06/13 03/19/22 History iron) tablet glucosamine sulfate 2KCl 1,000 mg 500 mg PO BID 12/06/13 03/19/22 History tablet trazodone 150 mg tablet 150 mg PO HS 12/06/13 03/19/22 History ascorbic acid (vitamin C) 1,000 mg 4,000 mg PO DAILY 03/22/14 03/19/22 History tablet duloxetine 60 mg capsule,delayed 90 mg PO BID 11/15/16 03/19/22 History release (Cymbalta) hydrocodone 5 mg-acetaminophen 300 1 tab PO BID 11/15/16 03/19/22 History mg tablet (Vicodin) conjugated estrogens 0.3 mg tablet 0.3 mg PO QAM 11/18/16 03/19/22 History (Premarin) medroxyprogesterone 2.5 mg tablet 2.5 mg PO DAILY 11/18/16 03/19/22 History (Provera) potassium chloride 20 mEq 60 meq PO BID 11/25/16 03/19/22 History tablet,extended release(part/cryst) duloxetine 20 mg capsule,delayed 30 mg PO BID 11/08/17 03/19/22 History release (Cymbalta) fluticasone propionate 50 2 spray intranasal QAM 09/19/20 03/19/22 History mcg/actuation nasal spray,suspension lidocaine 5 % topical patch 1 patch topical Q24H #4 ea 09/19/20 03/19/22 Rx (Lidoderm) baclofen 10 mg tablet 10 tab PO .Q8HRS 03/19/22 03/19/22 History quetiapine 50 mg tablet 50 mg PO .QHS 03/19/22 03/19/22 History Exam Narrative Exam Narrative: GEN: Alert and oriented, pleasant and cooperative, gives linear history with redirection. No acute distress at rest but in distress with any movement of torso HEENT: Head atraumatic. Conjunctiva clear, no icterus. PEERL, EOMI. no rhinorrhea. MMM, OP benign, edentulous Neck is supple with no masses or lymphadenopathy LUNGS: CTAB with normal effort CV: RRR with no murmurs, gallops, or rubs. ABD: +BS, soft, NT/ND EXT: no cyanosis, clubbing, or edema MSK: No joint redness or swelling NEURO: CN 2-12 grossly intact. Normal movement of 4 extremities. Normal speech and coordination SKIN: No rashs or open wounds. slight bruising over lower thoracid spine. ~5cm crusted ulcerations both ears. old scarring on legs/feet, not open. PSYCH: normal mood and affect Results Imaging CT scan - pelvis: report reviewed (abd/pelvis: 1. Compression fractures of T12 and T8 with vertebra plana deformities. Compression fractures of T6 and T7 with approximately 50% loss of height. 2. Additional findings as above.) Imaging Studies: CT Lumbar spine: IMPRESSION: 1. No evidence of acute fracture or other abnormality. 2. Multilevel degenerative changes. Labs Result diagrams: 03/19/22 05:45 03/19/22 05:45 Labs: Laboratory Results - last 24 hr 03/19/22 03/19/22 03/19/22 05:45 05:45 06:00 WBC 7.01 RBC 3.58 L Hgb 12.6 Hct 36.8 MCV 103 H MCH 35.2 H MCHC 34.2 RDW 13.3 Plt Count 232 MPV 9.4 Immature Gran % 0.4 Neutrophils % 72.4 Lymphocytes % 16.7 Monocytes % 9.4 Eosinophils % 0.7 Basophils % 0.4 Nucleated RBC % 0.0 Absolute Neutrophils 5.07 Absolute Lymphocytes 1.17 L Absolute Monocytes 0.66 Absolute Eosinophils 0.05 Absolute Basophils 0.03 Sodium 137 Potassium 4.2 Chloride 102 Carbon Dioxide 27.1 Anion Gap 7.9 BUN 9 Creatinine 0.7 Estimated GFR/1.73 m2 >= 60.00 Glucose 89 Calcium 8.3 L Total Bilirubin 0.6 AST 29 ALT 21 Alkaline Phosphatase 134 H Total Protein 6.0 L Albumin 2.8 L COVID-19 Source Nasal/Nares Last Vital Signs Temp 36.6 C 03/19/22 06:13 Pulse 94 H 03/19/22 06:13 Resp 16 07/30/22 06:13 BP 138/67 03/19/22 06:13 Pulse Ox 97 03/19/22 06:13 PAWSS Have you Been Recently Intoxicated or Drunk Within the Last 30 days?: Yes Have you Ever Experienced Previous Episodes of Alcohol Withdrawal?: No Have you ever Experienced Withdrawal Seizures?: No Have you ever Experienced Delirium Tremens(DT)s?: No Have you ever undergone Alcohol Rehabilitation Treatment (i.e, inpt ot outpatient treatment programs)?: Yes Have you ever Experienced Blackouts?: No Have you ever Combined Alcohol with other Downers within the last 90 days?: No Have you ever Combined Alcohol with any other Substance of Abuse during the last 90 days?: No Positive Blood Alcohol level on Presentation? [PCS.BAL]: No Evidence of Increased Autonomic Activity (i.e. HR>120, tremor, sweating, agitation, nausea)?: No Result: 2
[2022-03-19 06:55] LABS: COVID-19 PCR Negative (Negative)
[2022-03-19 07:33] VITALS: BP 132/85; PULSE 94; RESP 18; TEMP 37.1; O2SAT 98
--- NOTE | 2022-03-19 09:07 | PDOC.CMIN ---
- If Service Date Differs Date of service: 03/19/22 Time of Service: 09:07 Care Management Initial Assess REASON FOR HOSPITALIZATION:: Vertebral compression fractures. PAST MEDICAL HISTORY/PAST SURGICAL HISTORY:: All Active Problems: Menopausal disorder (Acute), Discharge planning issues (Acute), DVT prophylaxis (Acute), Chronic pain disorder (Chronic),. Fall (Acute), Compression fx, thoracic spine (Acute), Osteoarthritis of left knee (Acute), Arthritis of right ankle (Chronic), Colitis determined by colorectal biopsy (Acute 11/18/16) - lymphocytic/collagenous colitis/proctitis, Fall (Acute 09/22/14) - a. fell down and could not get up,. Hypertension (Chronic) - with labile blood pressure, Morbid obesity (Chronic), Allergic rhinitis (Chronic), Hyperlipidemia (Chronic), History of anemia (Chronic), Fibromyalgia (Chronic), DJD (degenerative joint disease) (Chronic), Chronic depression (Chronic), Insomnia (Chronic), Gastroesophageal reflux disease (Chronic), Hiatal hernia (Chronic), Irritable bowel syndrome (Chronic), History of surgery (Chronic) - a. S/P open right ankle fracture/dislocation, b. Left knee arthroscopy, c. Right wrist fracture repair, d. T/A as a child, Dehydration, mild (Acute 09/22/14), Housing or economic circumstance (Chronic 09/22/14) - a. No heat for 1-1/2 days, H/O fall (Chronic), Anemia (Chronic), Person living alone (Chronic 09/22/14), Alcohol withdrawal delirium (Acute 09/22/14), Rhabdomyolysis (Acute 09/22/14), Alcohol dependence (Chronic), Ataxia (Chronic), COPD (chronic obstructive pulmonary disease) (Chronic), Onychomycosis (Chronic), and Depression (Chronic). Medical History: Alcohol abuse, Allergic rhinitis, Anemia, Depression, DJD (degenerative joint disease), Fibromyalgia, GERD (gastroesophageal reflux disease), Hiatal hernia, Hypercholesterolemia, Hyperlipidemia, Hypertension, IBS (irritable bowel syndrome), and Insomnia. Surgical History: Arthroplasty of knee - left, Colonoscopy - MAC (11/18/16), ORIF right ankle, Repair fracture right wrist, and Tonsillectomy and adenoidectomy. PREVIOUS FUNCTIONAL STATUS/SOCIAL/FAMILY SUPPORTS:: Elvi lives alone in [facility]. She has no family locally but she remains in close contact with her sister, Marzena, who resides in [place], [place]. 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 Elvi does not drive but she cooks her own meals and is independent with her ADLs at baseline. CURRENT FUNCTIONAL STATUS:: Elvi is lying in bed watching television when CM comes to meet with her. She easily engages in conversation and talks about being bitten by a rabid skunk, being hospitalized at [facility] and subsequently spending 5 months at the [facility]. ADVANCE DIRECTIVES:: On file; sister, Marzena Pena, is appointed as Health Care Agent. Has patient been provided with info about the portal/API?: Yes Did the patient sign up for the portal?: No CODE STATUS:: Full Code INSURANCE COVERAGE / FINANCIAL ISSUES:: Medicare and Medicaid. CURRENT HOME/COMMUNITY SERVICES/EQUIPMENT:: Elvi has a homemaker every other week through [facility] [employer] moderate needs; Amber Banuelos is her bilingual case manager. Elvi does Aquatic Therapy through [facility]. She owns a cane, walker, wheelchair, ramp, and shower chair. PRIMARY CARE PHYSICIAN:: Iesha Leary MD ([facility]). POTENTIAL DISCHARGE NEEDS:: Follow up appointment with PCP and potential short term rehab. PATIENT/FAMILY EDUCATION NEEDS:: Review of discharge instructions; discuss Ask Me Three. ANTICIPATED BARRIERS TO DISCHARGE:: No anticipated barriers at this time. TRANSPORTATION:: To be determined based on disposition. PLAN:: Elvi will likely require rehab when medically cleared by provider. Elvi is agreeable to returning to the [facility] to regain some strength before returning home. She will follow up with her PCP, community providers, and plan of care as prescribed. CM will continue to follow.
[2022-03-19] MEDS: medroxyPROGESTERone 5 MG TAB 2.5 MG PO (09:09)
[2022-03-19] MEDS: Esomeprazole 40 MG CAPCR PO (09:10)
[2022-03-19] MEDS: Folic Acid 1 MG TAB PO (09:10)
[2022-03-19] MEDS: Potassium Chloride 20 MEQ TABCR 60 MEQ PO ×2 (09:11→19:28)
[2022-03-19] MEDS: Multivitamin TAB 1 TAB PO (09:11)
[2022-03-19] MEDS: Cholecalciferol (Vitamin D3) 400 UNIT TAB 800 UNIT PO (09:11)
[2022-03-19] MEDS: DULoxetine 30 MG CAP 90 MG PO (09:11)
[2022-03-19] MEDS: Glucosamine 500 MG CAP PO ×2 (09:11→19:28)
[2022-03-19] MEDS: Thiamine 100 MG TAB PO (09:11)
[2022-03-19] MEDS: Enoxaparin 40 MG/0.4 ML SYR SC (09:12)
[2022-03-19] MEDS: Lidocaine 5% Patch 1 PATCH TP (09:12)
[2022-03-19] MEDS: Fluticasone NASAL SPRAY 16 GM BTL NS (09:18)
[2022-03-19] MEDS: HYDROcodone 5/Acetaminophen 325 TAB PO ×3 (10:38→21:21)
--- NOTE | 2022-03-19 11:16 | IN_ITS ---
PT Notes Visit Reasons: vertebral compression fractures Inpatient Physical Therapy Evaluation Date: March 19, 2022 Referring Doctor: Audie Richmond PT Orders: PT CONSULT: Evaluate for assistive device, safety consult for discharge and fall safety assessment Precautions: Fall risk Patient Profile/Admitting Diagnosis: Patient is a an 81-year-old female referred for evaluation treatment planning status post multiple thoracic compression fractures following a fall on March 17, 2022 as a result of tripping on a rug. Patient states she arrived by ambulance. Admits that she feels confused that she arrived to the hospital in the middle the night. Evaluation requested for safety consult for discharge, fall safety assessment and evaluate for assistive device. CT scan reveals compression fractures of T6 and 7 with 50% loss of height as well as T8 and T12 with vertebra plana deformities. 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 fell down and could not get upHypertension (Chronic) with labile blood pressure.Morbid obesity (Chronic) Allergic rhinitis (Chronic) Hyperlipidemia (Chronic) History of anemia (Chronic) Fibromyalgia (Chronic) DJD (degenerative joint disease) (Chronic) Chronic depression (Chronic) Insomnia (Chronic) Gastroesophageal reflux disease (Chronic) Hiatal hernia (Chronic) Irritable bowel syndrome (Chronic) History of surgery (Chronic) a. S/P open right ankle fracture/dislocation. b. Left knee arthroscopy. c. Right wrist fracture repair. d. T/A as a child.Dehydration, mild (Acute 09/22/14) Housing or economic circumstance (Chronic 09/22/14) a.? No heat for 1-1/2 daysH/O fall (Chronic) Anemia (Chronic) Person living alone (Chronic 09/22/14) Alcohol withdrawal delirium (Acute 09/22/14) Rhabdomyolysis (Acute 09/22/14) Alcohol dependence (Chronic) Ataxia (Chronic) COPD (chronic obstructive pulmonary disease) (Chronic) Onychomycosis (Chronic) Depression (Chronic) Medical History? Alcohol abuse Allergic rhinitis Anemia Depression DJD (degenerative joint disease) Fibromyalgia GERD (gastroesophageal reflux disease) Hiatal hernia Hypercholesterolemia Hyperlipidemia Hypertension IBS (irritable bowel syndrome) Insomnia Surgical History? Arthroplasty of knee leftColonoscopy - MAC (11/18/16) ORIF right ankle Repair fracture right wrist Tonsillectomy and adenoidectomy Social History/Home Situation: Patient lives alone in single level dwelling with ramp for entry. Patient's baseline function mobility is with use of Rollator walker. She uses her wheelchair in her home. Has been attending outpatient physical therapy at [facility] for aquatic therapy. Chronic opioid use since . Current Functional Limitations: Transfer capabilities, ambulation, self-care ADLs Equipment Owned/DME: Wheelchair and Rollator walker Subjective: Patient states that she is feeling better today now that she has had medication. She is awaiting muscle relaxants. Spoke with nursing and they are working on this. Admits she feels as though she is more tolerant to bed mobility now she has been able to transition to a left side-lying position with manageable symptoms. Questions whether or not she will be able to perform any standing or walking. Is willing to try. Reports that she is confused secondary to coming in in the middle the night. Patient states she recently received her pain medication and feels it is helping. Objective: General Observation: No acute distress. Patient lying in hospital bed with head of bed at 25 degrees. Mental Status: Oriented to time place and person Pain: 2/10 at rest, 6/10 upon standing, 10/10 at worst 2 days ago. ROM: Right Upper Extremity: Glenohumeral joint flexion 90 degrees with significant shrug/scapular elevation secondary to chronic rotator cuff tear active assisted to 150 with min complaints of pain. Elbow flexion extension within normal limits. Wrist within normal limits, able to make full fist. Left Upper Extremity: Glenohumeral joint flexion and abduction 140 degrees, elbow flexion extension within normal limits, wrist active range of motion within normal limits. Able to make a full fist. Right Lower Extremity: Hip within normal limits pain-free. Patient is able to perform active hip flexion to 120 degrees without back pain. Knee flexion and extension within normal limits. Left Lower Extremity: Hip range of motion active within normal limits pain-free. Knee flexion 125 degrees, knee extension lacks 5 degrees (history of total knee replacement). L spine: Patient tolerates bent knee fallouts for trunk rotation in supine position 50 degrees to left compared to 40 degrees to right with pain in low back. Strength: Right Upper Extremity: 3/5 shoulder flexion and abduction. 4/5 bicep and tricep. Wrist flexion and extension 4+/5. Good terminal supervisor strength Left Upper Extremity: 4/5 shoulder flexion and abduction, 4/5 bicep and tricep. Wrist extension and flexion 4+/5. Good terminal supervisor. Right Lower Extremity: Patient able to form straight leg raise with 0 degree lag. Hip flexors 4/5, quads 4/5, hamstrings 4 -/5, ankle dorsiflexion and plantarflexion 4/5. Left Lower Extremity: Patient able to perform straight leg raise with 0 degree lag. Hip flexors 4/5, quads 4/5, hamstrings 4 -/5, ankle dorsiflexion and plantarflexion 4/5. Sensation: Patient reports intact sensation light touch throughout bilateral lower extremities. Bed Mobility/Transfers: Supine?side-lying: Independent to left, min assist to right Supine to sit: Min assist x1 Sit to stand: Mod assist x1 to front wheeled walker Stand to sit: Standby assist from front wheeled walker Sit to supine: Min assist for lower extremity placement onto bed Gait: Patient ambulated 5 feet with contact-guard use of front wheeled walker but discontinued secondary to increasing muscle spasms throughout the middle and lower back. Initial evaluation started and ended with patient in bed with bed alarm on. Balance: Static Sitting: Good Dynamic Sitting: Good Static Standing: Fair Dynamic Standing: Fair Special Tests: Mobility Limitations Standardized Measure [facility] AM-PAC 6 clicks Basic Mobility Inpatient Short Form: Raw Score: 18 standardized Score: 43.63 CMS Score: 47% Informed Consent/Education: Patient instructed in purpose of PT consult and plan of care. Therapeutic exercise: Patient educated in mobs, quad sets and gluteal sets as well as incorporating some gentle heel slides left and right lower extremity. Assessment: Patient is a 81year old female referred to physical therapy services with the diagnosis of thoracic compression fractures. Patient presents with clinical signs and symptoms consistent with above diagnosis, as demonstrated by the following impairment level findings: Joint mobility, motor function, muscle performance and range of motion associated with bony fracture. Impairments are contributing to the following functional limitations: Increased dependence with transfers, and ability to safely ambulate without assistive device and physical assistance, increase completion time for mobility ADL performance, increased fall risk, inability to negotiate steps alone safely. Patient required increased assistance with functional mobility particularly sit to stand transfers with verbal cues needed to avoid grabbing onto walker to assist to stand. Patient is assessed as a X Low 41900 [] Moderate 66397 [] High 72628 complexity based on the following: History: See above Examination: See above Presentation: Stable Decision Making: AM-PAC 47% Goals: Goals X1 week 1. Supine-Sit: Independent 2. Sit-Supine: Independent 3. Sit-Stand: Standby assist front wheel walker [] 4. Stand-Sit: Standby assist from front wheel walker 5. Bed-Chair: Standby assist with front wheel walker 6. Chair-Bed: [place] assist with front wheeled walker 7. Gait: 200 feet with front wheeled walker and standby assist Plan of Care/Treatment Plan: 1-2x/day, 7 days/week x 1 week. Plan of care has been reviewed with the SENIOR GAME ADVISOR providing the service under Physical Therapy direction. Initiate Physical Therapy intervention for strengthening, bed mobility, transfers, gait, stairs, balance training, use of assistive de vice. DISCHARGE RECOMMENDATIONS: X Home with services: Home health physical therapy. Patient will benefit from home health services in order to progress mobility level using least restricti ve assistive ambulatory device, ask assess home safety, identify additional equipment needs and establish a functional maintenance program that will increase ability of patient to remain at home TREATMENT CODE/TIME: Initial evaluation 61009, 11:00 to 11:25 direct one-on-one care. Thank you for this referral. Manohar Robles PT, DPT [facility]
[2022-03-19] MEDS: Baclofen 10 MG TAB 5 MG PO ×2 (13:39→19:29)
[2022-03-19 14:37] LABS: Bilirubin Negative (Negative); Blood Small (Negative); Clarity Cloudy (Clear); Glucose Negative (Negative); Ketones 40 mg/dL (Negative); Leukocyte Esterase Moderate (Negative); Nitrite Positive (Negative); Specific Gravity 1.025 (1.005-1.025); Urobilinogen 0.2 EU/dL (Up TO 0.2)
[2022-03-19 14:46] LABS: C & S Indicated? Yes; WBC >50 HPF (0-5)
[2022-03-19 15:29] VITALS: BP 142/88; PULSE 88; RESP 19; TEMP 36.8; O2SAT 99
--- NOTE | 2022-03-19 16:51 | W.PM.PROGNOT ---
Date of Service Date of service: 03/19/22 Time of Service: 16:51 Subjective Subjective Interval history since last seen: Ms Mishra states she is feeling better. Denies dizziness, chest pain, shortness of breath. Still having back pain, but was able to get up with PT. We discussed that there is a chance she may require rehab. She denies having difficulty urinating. She endorses chronic diarrhea. Her UA is positive for a UTI and she is being initiated on ceftriaxone. I added toradol to her medications. Objective Last Vital Signs Temp 36.8 C 03/19/22 15:29 Pulse 88 03/19/22 15:29 Resp 19 03/19/22 15:29 BP 142/88 H 03/19/22 15:29 Pulse Ox 99 03/19/22 15:29 Laboratory Results - last 24 hr 03/19/22 03/19/22 03/19/22 05:45 05:45 06:00 WBC 7.01 RBC 3.58 L Hgb 12.6 Hct 36.8 MCV 103 H MCH 35.2 H MCHC 34.2 RDW 13.3 Plt Count 232 MPV 9.4 Immature Gran % 0.4 Neutrophils % 72.4 Lymphocytes % 16.7 Monocytes % 9.4 Eosinophils % 0.7 Basophils % 0.4 Nucleated RBC % 0.0 Absolute Neutrophils 5.07 Absolute Lymphocytes 1.17 L Absolute Monocytes 0.66 Absolute Eosinophils 0.05 Absolute Basophils 0.03 Sodium 137 Potassium 4.2 Chloride 102 Carbon Dioxide 27.1 Anion Gap 7.9 BUN 9 Creatinine 0.7 Estimated GFR/1.73 m2 >= 60.00 Glucose 89 Calcium 8.3 L Total Bilirubin 0.6 AST 29 ALT 21 Alkaline Phosphatase 134 H Total Protein 6.0 L Albumin 2.8 L Urine Color Urine Clarity Urine pH Ur Specific [place] Urine Protein Urine Ketones Urine Blood Urine Nitrite Urine Bilirubin Urine Urobilinogen Ur Leukocyte Esterase Urine RBC Urine WBC Ur Epithelial Cells Urine Crystals Urine Bacteria Urine Mucus Ur Culture Indicated? Urine Glucose COVID-19 Source Nasal/Nares SARS-CoV-2 (PCR) Negative 03/19/22 14:20 WBC RBC Hgb Hct MCV MCH MCHC RDW Plt Count MPV Immature Gran % Neutrophils % Lymphocytes % Monocytes % Eosinophils % Basophils % Nucleated RBC % Absolute Neutrophils Absolute Lymphocytes Absolute Monocytes Absolute Eosinophils Absolute Basophils Sodium Potassium Chloride Carbon Dioxide Anion Gap BUN Creatinine Estimated GFR/1.73 m2 Glucose Calcium Total Bilirubin AST ALT Alkaline Phosphatase Total Protein Albumin Urine Color Yellow Urine Clarity Cloudy Urine pH 6.0 Ur Specific [place] 1.025 Urine Protein 30 H Urine Ketones 40 H Urine Blood Small H Urine Nitrite Positive H Urine Bilirubin Negative Urine Urobilinogen 0.2 Ur Leukocyte Esterase Moderate H Urine RBC Not Applicable Urine WBC >50 H Ur Epithelial Cells Not Applicable Urine Crystals Not Applicable Urine Bacteria Not Applicable Urine Mucus Not Applicable Ur Culture Indicated? Yes Urine Glucose Negative COVID-19 Source SARS-CoV-2 (PCR) PAWSS Have you Been Recently Intoxicated or Drunk Within the Last 30 days?: Yes Have you Ever Experienced Previous Episodes of Alcohol Withdrawal?: No Have you ever Experienced Withdrawal Seizures?: No Have you ever Experienced Delirium Tremens(DT)s?: No Have you ever undergone Alcohol Rehabilitation Treatment (i.e, inpt ot outpatient treatment programs)?: Yes Have you ever Experienced Blackouts?: No Have you ever Combined Alcohol with other Downers within the last 90 days?: No Have you ever Combined Alcohol with any other Substance of Abuse during the last 90 days?: No Positive Blood Alcohol level on Presentation? [PCS.BAL]: No Evidence of Increased Autonomic Activity (i.e. HR>120, tremor, sweating, agitation, nausea)?: No Result: 2
[2022-03-19] MEDS: Normal Saline Flush 10 ML SYR IVP ×2 (17:09→19:38)
[2022-03-19] MEDS: cefTRIAXone 1 GM/50 ML BAG IVPB (18:26)
[2022-03-19] MEDS: Ketorolac 15 MG/ML VIAL IVP (19:38)
[2022-03-19] MEDS: QUEtiapine 50 MG TAB PO (21:18)
[2022-03-19] MEDS: Bacitracin 1 PACKET (21:18)
[2022-03-19] MEDS: traZODone 100 MG TAB 200 MG PO (21:18)
[2022-03-19 22:45] VITALS: BP 110/74; PULSE 82; RESP 18; TEMP 36.5; O2SAT 94
[2022-03-20] MEDS: HYDROcodone 5/Acetaminophen 325 TAB PO ×4 (03:31→21:07)
[2022-03-20 06:59] LABS: HCT 33.6 % (36.0-46.0); HGB 11.5 g/dL (11.2-15.7); MCH 35.1 pg (27.0-33.0); MCHC 34.2 % (32.0-36.0); MCV 102 fL (80-95); MPV 10.1 fL (8.0-11.0); Platelet Count 215 10^3/uL (130-400); RBC 3.28 10^6/uL (3.93-5.22); RDW 13.2 % (11.7-14.6); RDW-SD 49.7 fL; WBC 4.91 10^3/uL (4.4-10.8)
[2022-03-20] MEDS: Folic Acid 1 MG TAB PO (07:38)
[2022-03-20] MEDS: DULoxetine 30 MG CAP 90 MG PO (07:38)
[2022-03-20] MEDS: Esomeprazole 40 MG CAPCR PO (07:38)
[2022-03-20] MEDS: Cholecalciferol (Vitamin D3) 400 UNIT TAB 800 UNIT PO (07:38)
[2022-03-20] MEDS: Multivitamin TAB 1 TAB PO (07:38)
[2022-03-20] MEDS: medroxyPROGESTERone 5 MG TAB 2.5 MG PO (07:39)
[2022-03-20] MEDS: Potassium Chloride 20 MEQ TABCR 60 MEQ PO ×2 (07:39→20:46)
[2022-03-20] MEDS: Glucosamine 500 MG CAP PO ×2 (07:39→20:46)
[2022-03-20] MEDS: Baclofen 10 MG TAB 5 MG PO ×3 (07:39→20:46)
[2022-03-20] MEDS: Thiamine 100 MG TAB PO (07:39)
[2022-03-20] MEDS: Lidocaine 5% Patch 1 PATCH TP (07:39)
[2022-03-20] MEDS: Enoxaparin 40 MG/0.4 ML SYR SC (07:40)
[2022-03-20] MEDS: Normal Saline Flush 10 ML SYR IVP ×5 (07:40→20:47)
[2022-03-20 07:54] VITALS: BP 135/85; PULSE 79; RESP 19; TEMP 36.6; O2SAT 96
[2022-03-20] MEDS: Fluticasone NASAL SPRAY 16 GM BTL NS (08:59)
[2022-03-20 11:30] VITALS: BP 107/70; PULSE 89; RESP 18; TEMP 36.7; O2SAT 96
[2022-03-20] MEDS: Ketorolac 15 MG/ML VIAL IVP (11:35)
--- NOTE | 2022-03-20 11:36 | PTTR_ITS ---
PT Notes Visit Reasons: vertebral compression fractures SUBJECTIVE: Pt?is pleasant and agreeable to participating in PT.? 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 OBJECTIVE: ? PAIN: 10/10 before meds, 8/10 1hour post meds? BED MOBILITY/TRANSFERS? Supine to sitting: SBA Sit-stand: SBA? Stand-sit: SBA ? GAIT? Assistive Device: FWW? Weight bearing: Full Assist: SBA ? Distance:? 15', 20', 40'? Deviation: slow pace, cue for posture and FWW adjustment to help with stoop forward posture.? ASSESSMENT:? Patient able to tolerate activity with pt maneuvering within the perimeter of her room. Pt required seated rests with gait training due to limited activity tolerance. PLAN: Continue with global strengthening and general conditioning for improved mobility and activity tolerance. TREATMENT CODE/TIME: ?25minutes;? [id number] (11:25-11:50)
[2022-03-20] MEDS: Bacitracin 1 PACKET TP ×2 (14:34→20:46)
[2022-03-20 15:42] VITALS: BP 96/60; PULSE 88; RESP 18; TEMP 36; O2SAT 96
--- NOTE | 2022-03-20 15:53 | PGE_ITS ---
Date of Service Date of service: 03/20/22 Time of Service: 15:53 Assessment and Plan Assessment and plan (1) Compression fx, thoracic spine: Status: Acute Assessment and plan: Continue tylenol, hydrocodone, baclofen, toradol, lidocaine patches, PT. Add valium. (2) E. coli UTI: Status: Acute Assessment and plan: Present on admission. Continue ceftriaxone (day 2). (3) COPD (chronic obstructive pulmonary disease): Status: Chronic Assessment and plan: Not in acute exacerbation. Has albuterol prn (4) Chronic depression: Status: Chronic Assessment and plan: Continue duloxetine at 90 mg PO daily. (5) Chronic pain disorder: Status: Chronic Assessment and plan: Chronic pain related to DJD, fibromyalgia, for which she is on chronic norco 5/325 mg PO q6hrs prn. We are attempting to minimize changes to her opioids while titrating her therapy to address current pain. (6) Menopausal disorder: Status: Acute Assessment and plan: She is on both estrogen/progesterone, per patient. This should be followed up with PCP - not a classic regimen. (7) Alcohol abuse: Assessment and plan: No evidence of EtOH w/d at this time. MOnitor on CIWA. Apparently, does have a h/o w/d. (8) DVT prophylaxis: Status: Acute Assessment and plan: LMWH (9) Discharge planning issues: Status: Acute Assessment and plan: Full code PT recommended d/c home with home health services, but the patient now feels worse. She may require SNF on d/c. Subjective Subjective Interval history since last seen: Ms Vick reports worsening back pain today - on the opposite side (left) from where it hurt before (right). She denies dizziness, chest pain, shortness of breath, nausea. Her Last BP is 96/60. She showed me a log of her BPs taken at the PCP's office - they are usually in 110s and 120s systolic. She has discomfort in her mouth from a pressure sore on her left mandible from the dentures. We discussed how she should not wear them and that I am changing her diet to soft. Exam Narrative Exam Narrative: General: Pleasant elderly female who is uncomfortable in bed, A&Ox3 HEENT: EOMI, MMM, erosion on L mandible on oral exam without bleeding or eviden ce of infection Heart: RRR, no m/r/g Lungs: CTAB Abdomen: soft, nontender, nondistended Extremities: no edema BLEs Objective Last Vital Signs Temp 36 C L 03/20/22 15:42 Pulse 88 03/20/22 15:42 Resp 18 03/20/22 15:42 BP 96/60 L 03/20/22 15:42 Pulse Ox 96 03/20/22 15:42 Laboratory Results - last 24 hr 03/20/22 06:09 WBC 4.91 RBC 3.28 L Hgb 11.5 Hct 33.6 L MCV 102 H MCH 35.1 H MCHC 34.2 RDW 13.2 Plt Count 215 MPV 10.1 PAWSS Have you Been Recently Intoxicated or Drunk Within the Last 30 days?: Yes Have you Ever Experienced Previous Episodes of Alcohol Withdrawal?: No Have you ever Experienced Withdrawal Seizures?: No Have you ever Experienced Delirium Tremens(DT)s?: No Have you ever undergone Alcohol Rehabilitation Treatment (i.e, inpt ot outpatient treatment programs)?: Yes Have you ever Experienced Blackouts?: No Have you ever Combined Alcohol with other Downers within the last 90 days?: No Have you ever Combined Alcohol with any other Substance of Abuse during the last 90 days?: No Positive Blood Alcohol level on Presentation? [PCS.BAL]: No Evidence of Increased Autonomic Activity (i.e. HR>120, tremor, sweating, agitation, nausea)?: No Result: 2
[2022-03-20] MEDS: Acetaminophen 325 MG TAB PO (15:57)
[2022-03-20] MEDS: Lactated Ringers 500 ML 1000 ML IV (15:58)
[2022-03-20] MEDS: diazePAM 2 MG TAB PO (16:05)
[2022-03-20] MEDS: cefTRIAXone 1 GM/50 ML BAG IVPB (16:46)
[2022-03-20 18:34] VITALS: BP 104/67; PULSE 85; RESP 18; TEMP 36.8; O2SAT 98
[2022-03-20 20:45] VITALS: RESP 18
[2022-03-20] MEDS: traZODone 100 MG TAB 200 MG PO (21:07)
[2022-03-20] MEDS: QUEtiapine 50 MG TAB PO (21:07)
[2022-03-21] VITALS (7 sets, daily range): BP systolic 98–120; BP diastolic 52–76; PULSE 76–98; RESP 18–22; TEMP 36.2–36.8; O2SAT 95–98
[2022-03-21] MEDS: HYDROcodone 5/Acetaminophen 325 TAB PO ×3 (02:09→15:47)
[2022-03-21 07:14] LABS: HCT 35.4 % (36.0-46.0); MCH 35.4 pg (27.0-33.0); MCHC 33.9 % (32.0-36.0); MCV 104 fL (80-95); Platelet Count 216 10^3/uL (130-400); RBC 3.39 10^6/uL (3.93-5.22); RDW 13.1 % (11.7-14.6); RDW-SD 50.7 fL; WBC 4.24 10^3/uL (4.4-10.8)
[2022-03-21] MEDS: Lidocaine 5% Patch 1 PATCH TP (08:07)
[2022-03-21] MEDS: Normal Saline Flush 10 ML SYR IVP ×4 (08:07→19:51)
[2022-03-21] MEDS: Enoxaparin 40 MG/0.4 ML SYR SC (08:07)
[2022-03-21] MEDS: Bacitracin 1 PACKET TP ×3 (08:08→19:45)
[2022-03-21] MEDS: Baclofen 10 MG TAB 5 MG PO ×3 (08:08→19:44)
[2022-03-21] MEDS: Esomeprazole 40 MG CAPCR PO (08:08)
[2022-03-21] MEDS: Potassium Chloride 20 MEQ TABCR 60 MEQ PO ×2 (08:08→19:45)
[2022-03-21] MEDS: medroxyPROGESTERone 5 MG TAB 2.5 MG PO (08:09)
[2022-03-21] MEDS: DULoxetine 30 MG CAP 90 MG PO (08:09)
[2022-03-21] MEDS: Folic Acid 1 MG TAB PO (08:11)
[2022-03-21] MEDS: Multivitamin TAB 1 TAB PO (08:11)
[2022-03-21] MEDS: Thiamine 100 MG TAB PO (08:11)
[2022-03-21] MEDS: Glucosamine 500 MG CAP PO ×2 (08:12→19:45)
[2022-03-21] MEDS: Cholecalciferol (Vitamin D3) 400 UNIT TAB 800 UNIT PO (08:12)
--- NOTE | 2022-03-21 08:16 | CMPROGNOTE_ITS ---
- If Service Date Differs Date of service: 03/21/22 Time of Service: 08:16 Care Management Progress Note S/O: Elvi remains inpatient at [facility]. Anticipate SNF upon discharge, CM faxed referral; awaiting determination from [facility]. CM continues to follow. A: 81 year old female admitted to [facility] 03/19/22 for veterbral compression fracture P: Elvi will likely require SNF for continued rehab when medically cleared by provider, placement coordination ongoing at this time. She will follow up with her PCP, community providers, and plan of care as prescribed. CM will continue to follow.
[2022-03-21] MEDS: Fluticasone NASAL SPRAY 16 GM BTL NS (08:33)
[2022-03-21] MEDS: Ketorolac 15 MG/ML VIAL IVP ×2 (13:26→19:45)
--- NOTE | 2022-03-21 14:45 | PT.INTREAT ---
Date of service: 03/21/22 Time of Service: 14:07 PT Notes Visit Reasons: Vertebral Compression Fractures Inpatient Physical Therapy Treatment Note [facility] Date: 03/21/2022 PRECAUTIONS: Fall, activity as tolerated, back pain SUBJECTIVE: Elvi is pleasant and agreeable to participating in PT. She states that she is feeling better this afternoon after receiving pain medication for her back pain. She reports that she does not walk much at home, that she only walks down her ramp to her ride to PT, otherwise she is in a wheelchair. OBJECTIVE: Patient not available for morning PT session. PAIN: No c/o pain BED MOBILITY/TRANSFERS Supine-sit: S with HOB at 40 degrees Sit-supine: I with HOB flat Sit-stand: S Stand-sit: S GAIT Assistive Device: FWW Weight bearing: Full Assist: SBA Distance: 150' Deviation: Standing rests throughout, cueing for posture, FWW adjustment for improved posture ASSESSMENT: Patient tolerated session well, without complaint of back pain. She was able to tolerate a progression in gait distance with FWW support and SBA. She requires extra time for all transfers and bed mobility, as well as with gait training. PLAN: Continue with global strengthening, add focus on core stabilization for improved mobility while limiting back pain. TREATMENT CODE/TIME: 36 minutes; 73243 x2 (14:07)
[2022-03-21] MEDS: Normal Saline 500 ML 30 ML IV (15:48)
[2022-03-21] MEDS: cefTRIAXone 1 GM/50 ML BAG IVPB (15:49)
--- NOTE | 2022-03-21 15:55 | W.PALLCONSUL ---
Date of service: 03/21/22 Time of Service: 11:30 History of Present Illness Narrative: Ms. Boles is n 81 y/o F currently inpatient at [facility] 2/2 compression fracture of thoracic spine management; PMHx sig for AUD, depression, DJD, OA, fibromyalgia (on chronic pain medications), COPD; PC consult to review [facility] Patient reports pain increased in the back related to compression fractures. Reports pain ongoing, chronic, constant. Reports has had worsening back pain with spasms up to this admission. Reports chronic fibromyalgia pain on hydrocodone long-term, concerns over efficacy with hydrocodone. Reports chronic diarrhea which does lead to a occasional incontinence, wears depends at home, reports has been seen by for GI specialist with no appropriate diagnosis or management plan, was diagnosed with colitis. reports prior to hospital admission was eating very little which led to no BM, diarrhea loose stools did resume once resumed eating last night and requested depends for overnight. 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 Has choices for care manager transplant Yessica Banuelos, concerns over only having assistance every other week, need for private pay grocery shopping and relying on friends for transportation. Patient is agreeable to SNF on discharge, history of SNF for 5 months previously, aware that needs ongoing rehabilitation prior to returning home Reports DPOA as Sister Marzena, reports does have advanced directive on file with primary care Iesha estrella at [facility], preference to remain full code, would not want to be kept alive on machines long-term. Preference to defer conversation after review of advanced directive. Agreeable to outpatient follow-up and palliative care Assessment and Plan Assessment and plan (1) Palliative care encounter: Status: Acute Assessment and plan: continue to follow outpatient, NHV vs HV (2) E. coli UTI: Status: Acute Assessment and plan: continue ceftriaxone (3) Chronic pain disorder: Status: Chronic Assessment and plan: on chronic hydrocodone 5-10mg, previously q6h PRN, changed to 10mg q4h PRN, continue at this time, recommend more frequent pain assessments to stay on top of pain control will continue to follow outpatient for additional chronic pain management as needed (4) Fall: Status: Acute Assessment and plan: continue PT recommend SNF upon discharge for ongoing rehab (5) Compression fx, thoracic spine: Status: Acute Assessment and plan: continue hydrocodone 10mg q4h PRN (6) Fibromyalgia: Status: Chronic Assessment and plan: continue hydrocodone and duloxetine (7) DJD (degenerative joint disease): Status: Chronic (8) Chronic depression: Status: Chronic Assessment and plan: continue duloxetine (9) Person living alone: Status: Chronic Assessment and plan: unsafe to return home w/o services, SNF and potentially return home w/increase in services (10) Alcohol abuse: Assessment and plan: did not assess today; no evidence of alcohol withdrawal this admission (11) Full code status: Status: Acute Assessment and plan: to review AD in future visits and update as needed Review of Systems Constitutional Constitutional: Reports as per [facility] PFS All Active Problems (Updated 03/21/22 @ 16:10 by Hailey Collier NP) Palliative care encounter (Acute) Full code status (Acute) E. 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 fell down and could not get up Hypertension (Chronic) with labile blood pressure. Morbid obesity (Chronic) Allergic rhinitis (Chronic) Hyperlipidemia (Chronic) History of anemia (Chronic) Fibromyalgia (Chronic) DJD (degenerative joint disease) (Chronic) Chronic depression (Chronic) Insomnia (Chronic) Gastroesophageal reflux disease (Chronic) Hiatal hernia (Chronic) Irritable bowel syndrome (Chronic) History of surgery (Chronic) a. S/P open right ankle fracture/dislocation. b. Left knee arthroscopy. c. Right wrist fracture repair. d. T/A as a child. Dehydration, mild (Acute 09/22/14) Housing or economic circumstance (Chronic 09/22/14) a. No heat for 1-1/2 days H/O fall (Chronic) Anemia (Chronic) Person living alone (Chronic 09/22/14) Alcohol withdrawal delirium (Acute 09/22/14) Rhabdomyolysis (Acute 09/22/14) Alcohol dependence (Chronic) Ataxia (Chronic) COPD (chronic obstructive pulmonary disease) (Chronic) Onychomycosis (Chronic) Depression (Chronic) Medical History Alcohol abuse Allergic rhinitis Anemia Depression DJD (degenerative joint disease) Fibromyalgia GERD (gastroesophageal reflux disease) Hiatal hernia Hypercholesterolemia Hyperlipidemia Hypertension IBS (irritable bowel syndrome) Insomnia Surgical History Arthroplasty of knee left Colonoscopy - MAC (11/18/16) ORIF right ankle Repair fracture right wrist Tonsillectomy and adenoidectomy Social History Smoking/Tobacco Use Status: Former Tobacco Use Smoking risk assessment performed?: Yes Alcohol Intake: current Alcohol Intake frequency: 0-2 drinks per day Alcohol type: wine Details: 1/2 bottle of wine/day Drug use: Daily Substance use type: marijuana Details: two tokes for sleep Do you feel safe at home: Yes Do you feel safe in your relationship?: Yes Additional Social history: Lives alone in home in [facility], has a cat. One sister in [place] Exam Narrative Exam Narrative: lying in bed throughout visit, eating lunch, grimace in pain w/light positional changes Const General: cooperative, comfortable and no acute distress Orientation: alert, awake and oriented x3 HENMT Head: normal to inspection, normocephalic and atraumatic Ears: hearing grossly normal bilaterally Resp Effort & Inspection: normal respiratory effort, able to speak in complete sentences and no cough Skin General skin exam: no rashes or lesions noted and dry skin Extrem General: no pedal edema Psych Appearance: grossly normal Mental Status: mental status grossly normal Speech and Movement: speech and movement normal Insight: limited Judgment: limited Results Last Vital Signs Temp 97.5 F L 03/21/22 15:40 Pulse 98 H 03/21/22 15:40 Resp 19 03/21/22 15:40 BP 98/52 L 03/21/22 15:40 Pulse Ox 98 03/21/22 15:40 Labs Result diagrams: 03/21/22 06:15 03/19/22 05:45 Labs: Laboratory Results - last 24 hr 03/21/22 06:15 WBC 4.24 L RBC 3.39 L Hgb 12.0 Hct 35.4 L MCV 104 H MCH 35.4 H MCHC 33.9 RDW 13.1 Plt Count 216 MPV 10.0
--- NOTE | 2022-03-21 16:48 | PGE_ITS ---
Date of Service Date of service: 03/21/22 Time of Service: 16:48 Assessment and Plan Assessment and plan (1) Compression fx, thoracic spine: Status: Acute Assessment and plan: Continue tylenol, hydrocodone, baclofen, toradol, lidocaine patches, PT. prn valium. Wound benefit form going to a SNF. (2) E. coli UTI: Status: Acute Assessment and plan: Present on admission. Continue ceftriaxone (day 3). Consider switching to PO tomorrow. (3) COPD (chronic obstructive pulmonary disease): Status: Chronic Assessment and plan: Not in acute exacerbation. Has albuterol prn (4) Chronic depression: Status: Chronic Assessment and plan: Continue duloxetine at 90 mg PO daily. (5) Chronic pain disorder: Status: Chronic Assessment and plan: Chronic pain related to DJD, fibromyalgia, for which she is on chronic norco 5/325 mg PO q6hrs prn. We are attempting to minimize changes to her opioids while titrating her therapy to address current pain. (6) Menopausal disorder: Status: Acute Assessment and plan: She is on both estrogen/progesterone, per patient. This should be followed up with PCP - not a classic regimen. (7) Alcohol abuse: Assessment and plan: No evidence of EtOH w/d at this time. MOnitor on CIWA. Apparently, does have a h/o w/d. (8) DVT prophylaxis: Status: Acute Assessment and plan: LMWH (9) Discharge planning issues: Status: Acute Assessment and plan: Full code Evaluated by palliative care today. SNF on d/c. Subjective Subjective Interval history since last seen: Ms Vick is not feeling better today. She states it now hurts to turn in the direction where it didn't use to hurt. The pain is better with medications. She would like to have her physical therapy session to be coordianted with pain medications. She is open to the idea of going to rehab. She continues to have her chronic diarrhea that 4 gastroenterologists could not figure out. She denies any other symptoms including chest pain, shortness of breath, nausea. Exam Narrative Exam Narrative: General: Pleasant elderly female who is uncomfortable in bed, A&Ox3 HEENT: EOMI, MMM, erosion on L mandible on oral exam without bleeding or evidenc e of infection Heart: RRR, no m/r/g Lungs: CTAB Abdomen: soft, nontender, nondistended Extremities: no edema BLEs Objective Last Vital Signs Temp 36.4 C L 03/21/22 15:40 Pulse 76 03/21/22 16:44 Resp 19 03/21/22 15:40 BP 120/76 03/21/22 16:44 Pulse Ox 98 03/21/22 15:40 Laboratory Results - last 24 hr 03/21/22 06:15 WBC 4.24 L RBC 3.39 L Hgb 12.0 Hct 35.4 L MCV 104 H MCH 35.4 H MCHC 33.9 RDW 13.1 Plt Count 216 MPV 10.0 PAWSS Have you Been Recently Intoxicated or Drunk Within the Last 30 days?: Yes Have you Ever Experienced Previous Episodes of Alcohol Withdrawal?: No Have you ever Experienced Withdrawal Seizures?: No Have you ever Experienced Delirium Tremens(DT)s?: No Have you ever undergone Alcohol Rehabilitation Treatment (i.e, inpt ot outpatient treatment programs)?: Yes Have you ever Experienced Blackouts?: No Have you ever Combined Alcohol with other Downers within the last 90 days?: No Have you ever Combined Alcohol with any other Substance of Abuse during the last 90 days?: No Positive Blood Alcohol level on Presentation? [PCS.BAL]: No Evidence of Increased Autonomic Activity (i.e. HR>120, tremor, sweating, agitation, nausea)?: No Result: 2
[2022-03-21] MEDS: QUEtiapine 50 MG TAB PO (21:08)
[2022-03-21] MEDS: traZODone 100 MG TAB 200 MG PO (21:08)
[2022-03-21] MEDS: Mylanta Suspension 30 ML CUP PO (21:52)
[2022-03-22 05:53] VITALS: BP 101/69; PULSE 95; RESP 18; TEMP 35.8; O2SAT 93
[2022-03-22 07:38] VITALS: BP 105/73; PULSE 99; RESP 18; TEMP 36.5; O2SAT 94
[2022-03-22 08:02] LABS: Folate 19.9 ng/mL (8.6-20.0); Vitamin B12 942 pg/mL (193-986)
[2022-03-22] MEDS: Lidocaine 5% Patch 1 PATCH TP (08:31)
[2022-03-22] MEDS: Enoxaparin 40 MG/0.4 ML SYR SC (08:31)
[2022-03-22] MEDS: Glucosamine 500 MG CAP PO (08:32)
[2022-03-22] MEDS: HYDROcodone 5/Acetaminophen 325 TAB PO ×2 (08:32→12:23)
[2022-03-22] MEDS: Potassium Chloride 20 MEQ TABCR 60 MEQ PO (08:32)
[2022-03-22] MEDS: medroxyPROGESTERone 5 MG TAB 2.5 MG PO (08:32)
[2022-03-22] MEDS: Multivitamin TAB 1 TAB PO (08:32)
[2022-03-22] MEDS: Thiamine 100 MG TAB PO (08:33)
[2022-03-22] MEDS: Baclofen 10 MG TAB 5 MG PO (08:33)
[2022-03-22] MEDS: Cholecalciferol (Vitamin D3) 400 UNIT TAB 800 UNIT PO (08:33)
[2022-03-22] MEDS: DULoxetine 30 MG CAP 90 MG PO (08:33)
[2022-03-22] MEDS: Esomeprazole 40 MG CAPCR PO (08:33)
[2022-03-22] MEDS: Folic Acid 1 MG TAB PO (08:34)
[2022-03-22] MEDS: Bacitracin 1 PACKET TP (08:34)
[2022-03-22] MEDS: Fluticasone NASAL SPRAY 16 GM BTL NS (09:27)
--- NOTE | 2022-03-22 09:52 | INDS_ITS ---
PT Notes Visit Reasons: Vertebral Compression Fractures Inpatient Physical Therapy Evaluation Date: 03/22/2022 Dates of service: 03/19/2022 through 03/22/2022 This is a clinical summary of care provided for the duration of dates listed above. No charge was made in the completion of this documentation. Referring Doctor:Audie Jacobs PT Orders: PT CONSULT: Evaluate for assistive device, safety consult for discharge and fall safety assessment Precautions: Fall risk Patient Profile/Admitting Diagnosis:?Patient is a an 81-year-old female referred for evaluation treatment planning status post multiple thoracic compression fractures following a fall on March 17, 2022 as a result of tripping on a rug.? Patient states she arrived by ambulance.? Admits that she feels confused that she arrived to the hospital in the middle the night.? Evaluation requested for safety consult for discharge, fall safety assessment and evaluate for assistive device.? CT scan reveals compression fractures of T6 and 7 with 50% loss of height as well as T8 and T12 with vertebra plana deformities. 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 fell down and could not get up Hypertension (Chronic) with labile blood pressure.Morbid obesity (Chronic) Allergic rhinitis (Chronic) Hyperlipidemia (Chronic) History of anemia (Chronic) Fibromyalgia (Chronic) DJD (degenerative joint disease) (Chronic) Chronic depression (Chronic) Insomnia (Chronic) Gastroesophageal reflux disease (Chronic) Hiatal hernia (Chronic) Irritable bowel syndrome (Chronic) History of surgery (Chronic) a. S/P open right ankle fracture/dislocation. b. Left knee arthroscopy. c. Right wrist fracture repair. d. T/A as a child.Dehydration, mild (Acute 09/22/14) Housing or economic circumstance (Chronic 09/22/14) a.? No heat for 1-1/2 daysH/O fall (Chronic) Anemia (Chronic) Person living alone (Chronic 09/22/14) Alcohol withdrawal delirium (Acute 09/22/14) Rhabdomyolysis (Acute 09/22/14) Alcohol dependence (Chronic) Ataxia (Chronic) COPD (chronic obstructive pulmonary disease) (Chronic) Onychomycosis (Chronic) Depression (Chronic) Medical History? Alcohol abuse Allergic rhinitis Anemia Depression DJD (degenerative joint disease) Fibromyalgia GERD (gastroesophageal reflux disease) Hiatal hernia Hypercholesterolemia Hyperlipidemia Hypertension IBS (irritable bowel syndrome) Insomnia Surgical History? Arthroplasty of knee leftColonoscopy - MAC (11/18/16) ORIF right ankle Repair fracture right wrist Tonsillectomy and adenoidectomy Social History/Home Situation: Patient lives alone in single level dwelling with ramp for entry.? Patient's baseline function mobility is with use of Rollator walker.? She uses her wheelchair in her home.? Has been attending outpatient physical therapy at [facility] for aquatic therapy.? Chronic opioid use since . Current Functional Limitations: Transfer capabilities, ambulation, self-care ADLs Equipment Owned/DME: Wheelchair and Rollator walker Subjective:? NT. See most recent COMPUTER OPERATIONS SPECIALIST notes. Objective:?? General Observation: NT. See most recent COMPUTER OPERATIONS SPECIALIST notes. Mental Status: NT. See most recent COMPUTER OPERATIONS SPECIALIST notes. Pain: NT. See most recent COMPUTER OPERATIONS SPECIALIST notes. ? ROM: Right Upper Extremity: Glenohumeral joint flexion 90 degrees with significant shrug/scapular elevation secondary to chronic rotator cuff tear active assisted to 150 with min complaints of pain.? Elbow flexion extension within normal limits.? Wrist within normal limits, able to make full fist. Left Upper Extremity: Glenohumeral joint flexion and abduction 140 degrees, elbow flexion extension within normal limits, wrist active range of motion within normal limits.? Able to make a full fist. Right Lower Extremity: Hip within normal limits pain-free.? Patient is able to perform active hip flexion to 120 degrees without back pain.? Knee flexion and extension within normal limits. Left Lower Extremity: Hip range of motion active within normal limits pain- free.? Knee flexion 125 degrees, knee extension lacks 5 degrees (history of total knee replacement). L spine: Patient tolerates bent knee fallouts for trunk rotation in supine position 50 degrees to left compared to 40 degrees to right with pain in low back. Strength: Right Upper Extremity: 3/5 shoulder flexion and abduction.? 4/5 bicep and tricep.? Wrist flexion and extension 4+/5.? Good grey percher strength Left Upper Extremity: 4/5 shoulder flexion and abduction, 4/5 bicep and tricep.? Wrist extension and flexion 4+/5.? Good grey percher. Right Lower Extremity: Patient able to form straight leg raise with 0 degree lag.? Hip flexors 4/5, quads 4/5, hamstrings 4 -/5, ankle dorsiflexion and plantarflexion 4/5. Left Lower Extremity: Patient able to perform straight leg raise with 0 degree lag.? Hip flexors 4/5, quads 4/5, hamstrings 4 -/5, ankle dorsiflexion and plantarflexion 4/5. Sensation:? Patient reports intact sensation light touch throughout bilateral lower extremities. BED MOBILITY/TRANSFERS? Supine-sit: S with HOB at 40 degrees? Sit-supine: I with HOB flat ? Sit-stand: S? Stand-sit: S ? GAIT? Assistive Device: FWW? Weight bearing: Full Assist: SBA ? Distance:? 150' ? Deviation: Standing rests throughout, cueing for posture, FWW adjustment for improved posture Balance:? Static Sitting: Good Dynamic Sitting: Good Static Standing: ? Fair Dynamic Standing: Fair Assessment:?? Functional improvements have been achieved during this epeisode of care. Patient required increased assistance with functional mobility particularly sit to stand transfers with verbal cues needed to avoid grabbing onto walker to assist to stand. Goals: Goals X1 week 1. Supine-Sit: Independent NOT MET 2. Sit-Supine: Independent NOT MET 3. Sit-Stand: Standby assist front wheel walker NOT MET 4. Stand-Sit: Standby assist from front wheel walker?NOT MET 5. Bed-Chair: Standby assist with front wheel walker NOT MET 6. Chair-Bed: NH assist with front wheeled walker NOT MET 7. Gait: 200 feet with front wheeled walker and standby assist NOT MET DISCHARGE RECOMMENDATIONS:? X ? Home with services: Home health physical therapy.? Patient will benefit from home health services in order to progress mobility level using least restrictive assistive ambulatory device, ask assess home safety, identify additional equipment needs and establish a functional maintenance program that will increase ability of patient to remain at home ? TREATMENT CODE/TIME: OK Thank you for the opportunity to participate in the care of this patient. Kelsey Skelton PT, DPT, CLT [facility] [place], [place]
--- NOTE | 2022-03-22 10:23 | CMDISCH_ITS ---
- If Service Date Differs Date of service: 03/22/22 Time of Service: 10:23 LACE Index Scoring Tool - Questions: Length of Stay (in days): 3 Acuity (Admit via E.D.?): Yes E.D. Visits: 1 - Answers: Total Score: 7 Risk of Readmission: Low Risk Care Management Discharge Reason for Hospitalization: Vertebral compression fractures. Discharge Plan: Elvi will discharge to [facility] for continued rehab prior to returning home. She will transport via the facility's W/C Van. Patient/Family Education Needs: Review discharge instructions, discuss Ask Me Three. Services Needed at Discharge: Half-Way Facility ([facility] ), Transportation (W/C Van )
--- NOTE | 2022-03-22 10:37 | W.PM.DS.N ---
Date of service: 03/22/22 Time of Service: 10:37 DS: Diagnosis Discharge Diagnosis (1) Compression fx, thoracic spine: Status: Acute (2) E. coli UTI: Status: Acute (3) COPD (chronic obstructive pulmonary disease): Status: Chronic (4) Chronic depression: Status: Chronic (5) Chronic pain disorder: Status: Chronic (6) Menopausal disorder: Status: Acute (7) Alcohol abuse: Discharge Plan Disposition Patient Disposition: SNF (LEVEL [facility]) [facility] Condition: Stable Discharge Details Reason For Visit: Vertebral Compression Fractures Admit Date/Time: 03/19/22 16:10 Admit Provider: Audie Richmond Attending Provider: Audie Richmond Primary Care Provider: Iesha Leary [facility] Hospital Course: This is an 81 year old female who lives alone, with history of alcohol use disorder, chronic pain on low dose opioids, who presented to the emergency room after a fall at home associated with severe back pain.? She states she tripped on a rug in her home and fell on the evening of 03/17/22.? She was able to get back into her wheelchair and back to bed.? The next day she called her PCP and was given some baclofen but she wasn't able to fill it until the evening.? She took one, but that night she was in such pain she realized she couldn't take care of herself and called the ambulance. Her work up in the ED shows compression fractures of T6, T7, T8, T12 along with multilevel degenerative changes. She was admitted to hospitalist services as she was high risk of falling, will need pain control and also evaluation with PT. She was found to have a pansensitive E coli UTI and was treated for 3 days with IV ceftriaxone, she will be downstepped to keflex for 2 more days to complete a 5 day course. She is eating and drinking well, working with PT and slowly progressing. It is felt that she would benefit from skilled rehabilitation stay. referral placed and she is accepted at [facility] and rehab. of note, patient does have alcohol use disorder but had no withdrawal symptoms while hospitalized. discharged to [facility] and rehab by wheelchair van. discharge discussed with DR Serrano. ? Home Meds and New Rx's Prescriptions: New albuterol sulfate [Ventolin HFA] 90 mcg/actuation Hfa Aerosol Inhaler 2 puff inhalation Q4H PRN PRNQty: 0 0RF hydrocodone-acetaminophen 5-325 mg Tablet 1 - 2 tab PO Q4H PRN PRN (Reason: Analgesia) Qty: 12 0RF esomeprazole magnesium [Nexium] 40 mg Capsule,Delayed Release(Dr/Ec) 40 mg PO DAILY@0730 Qty: 0 0RF cephalexin 500 mg tablet 500 mg PO TID Qty: 8 0RF diazepam 2 mg Tablet 2 mg PO TID PRN PRNQty: 6 0RF Continued ferrous sulfate 325 MG tablet 325 mg PO TID cholecalciferol (vitamin D3) [Vitamin D3] 400 UNIT tablet 800 unit PO DAILY glucosamine sulfate 2KCl 1,000 MG tablet 500 mg PO BID duloxetine [Cymbalta] 60 MG capsule,delayed release(DR/EC) 60 mg PO DAILY Rx Instructions: TAKES IN ADDITION TO A 30 MG CAP FOR A TOTAL OF 90 MG PO DAILY medroxyprogesterone [Provera] 2.5 MG tablet 2.5 mg PO DAILY quetiapine 50 mg tablet 50 mg PO QPM Label Comments: TAKE ONE TABLET BY MOUTH EVERY EVENING duloxetine 30 mg capsule,delayed release(DR/EC) 30 mg PO DAILY Label Comments: TAKE ONE CAPSULE BY MOUTH EVERY DAY WITH 60MG Rx Instructions: TAKES IN ADDITION TO A 60 MG CAP FOR A TOTAL OF 90 MG PO DAILY trazodone 100 mg tablet 200 mg PO HS Label Comments: TAKE 2 TABLETS BY MOUTH EVERY NIGHT potassium chloride 20 MEQ tablet,ER particles/crystals 20 meq PO TID Rx Instructions: 20 MG PO TID DIRECTED fluticasone propionate 50 mcg/actuation spray,suspension 0 spray INTRANASAL BID Label Comments: SPRAY ONE SPRAY IN EACH NOSTRIL TWICE A DAY Rx Instructions: ONE SPRAY EACH NOSTRIL BID lidocaine [Lidoderm] 1 PATCH patch 1 patch Topical Q24H Qty: 4 0RF Changed baclofen 10 mg tablet 5 mg PO TID Qty: 0 0RF Label Comments: TAKE ONE TABLET BY MOUTH TWICE A DAY AT LEAST 8 HOURS APART FOR MUSCLE SPASMS IF NEEDED Rx Instructions: 10 MG PO BID AT LEAST 8 HOURS APART Held hydrocodone-acetaminophen 5-325 mg tablet 1 tab PO QID PRN PRN Hold Instructions: Resume on 03/22/22. per outpatient provider. duplicate entry Label Comments: TAKE ONE TABLET BY MOUTH FOUR TIMES A DAY DIRECTED Discontinued pantoprazole 40 mg tablet,delayed release (DR/EC) 40 mg PO DAILY Label Comments: TAKE 1 TABLET BY MOUTH ONCE A DAY DIRECTED Rx Instructions: 40 MG PO DAILY DIRECTED No Action ascorbic acid (vitamin C) 1,000 MG tablet 4,000 mg PO DAILY Discharge Instructions Instructions: Urinary Tract Infection in Women (DC), Vertebral Compression Fracture (DC) Stand Alone Forms: Nursing Discharge Form Referrals: Iesha Leary [Primary Care Provider] - Activity:: Activity as Tolerated Equipment/Supplies:: No Equipment Needed Diet:: As Tolerated Discharge Orders Discharge Orders: Discharge Order (Routine); Ordered 03/22/22 Ordered By: Elyssa Falcon DS: Summary Time Spent with Patient providing and/or coordinating discharge services: Greater than 30 minutes Status at Discharge Functional status at discharge: uses cane/walker Overall status at discharge: patient is progressing back to baseline Mental Status: mental status grossly normal Speech and Movement: speech and movement normal Mood: congruent mood Affect: normal affect Exam Const General: no acute distress Orientation: alert HENMT Head: normal to inspection Mouth: moist mucous membranes Eyes General: appearance normal, both eyes and all related structures Resp Effort & Inspection: normal respiratory effort and able to speak in complete sentences Cardio Rate: regular rate Back/Spine/Pelvis Back: no CVA tenderness Skin General skin exam: no rashes or lesions noted Neuro General: patient alert and patient oriented x3 Extrem General: normal to inspection Psych Mental Status: mental status grossly normal Speech and Movement: speech and movement normal Mood: congruent mood Affect: normal affect DS: Data Vitals/I&O Vitals and I&O: Vital Signs Temperature 36.5 C 03/22/22 07:38 Temperature Source Tympanic 03/22/22 07:38 Pulse 99 H 03/22/22 07:38 Pulse Rhythm Regular 03/22/22 09:08 Respiratory Rate 18 03/22/22 07:38 Respiratory Effort Non-Labored 03/22/22 09:08 Respiratory Depth Normal 03/22/22 09:08 Respiratory Pattern Normal 03/22/22 09:08 Blood Pressure 105/73 03/22/22 07:38 Blood Pressure Position Supine 03/19/22 03:52 Pulse Oximetry 94 03/22/22 07:38 Oxygen Delivery Method Room Air 03/22/22 07:38 Oxygen Flow Rate 0 03/22/22 07:38 Pain Level 5 03/22/22 08:32 Comment 03/20/22 07:34 Intake & Output 03/21/22 03/21/22 03/22/22 11:59 23:59 11:59 Intake Total 360 / 1018.5 658.5 / 1018.5 Output Total 1900 / 2100 200 / 2100 1300 / 1300 Balance -1540 / -1081.5 458.5 / -1081.5 -1280 / -1280 Weight 73.2 kg 72.3 kg Intake: IV 10 / 108.5 98.5 / 108.5 Oral 350 / 910 560 / 910 Output: Urine 1400 / 1600 200 / 1600 1300 / 1300 Stool 500 / 500 Other: Urine Color Yellow Yellow Yellow Urine Appearance Clear Clear Clear Urine Odor None Normal Comment patient was moderatley incont and voided in commode Stool Size Large Large Stool Characteristics Liquid Liquid Brown Brown Green Green Voiding Methods Diaper Bedside Commode Bedside Commode Incontinent Data Completed and Pending Labs on day of discharge: Labs from last 24 hours 03/22/22 06:30 Vitamin B12 942 Folate 19.9 PFSH All Active Problems (Updated 03/21/22 @ 16:10 by Hailey Collier NP) Palliative care encounter (Acute) Full code status (Acute) E. 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 fell down and could not get up Hypertension (Chronic) with labile blood pressure. Morbid obesity (Chronic) Allergic rhinitis (Chronic) Hyperlipidemia (Chronic) History of anemia (Chronic) Fibromyalgia (Chronic) DJD (degenerative joint disease) (Chronic) Chronic depression (Chronic) Insomnia (Chronic) Gastroesophageal reflux disease (Chronic) Hiatal hernia (Chronic) Irritable bowel syndrome (Chronic) History of surgery (Chronic) a. S/P open right ankle fracture/dislocation. b. Left knee arthroscopy. c. Right wrist fracture repair. d. T/A as a child. Dehydration, mild (Acute 09/22/14) Housing or economic circumstance (Chronic 09/22/14) a. No heat for 1-1/2 days H/O fall (Chronic) Anemia (Chronic) Person living alone (Chronic 09/22/14) Alcohol withdrawal delirium (Acute 09/22/14) Rhabdomyolysis (Acute 09/22/14) Alcohol dependence (Chronic) Ataxia (Chronic) COPD (chronic obstructive pulmonary disease) (Chronic) Onychomycosis (Chronic) Depression (Chronic) Medical History Alcohol abuse Allergic rhinitis Anemia Depression DJD (degenerative joint disease) Fibromyalgia GERD (gastroesophageal reflux disease) Hiatal hernia Hypercholesterolemia Hyperlipidemia Hypertension IBS (irritable bowel syndrome) Insomnia Surgical History Arthroplasty of knee left Colonoscopy - [facility] (11/18/16) ORIF right ankle Repair fracture right wrist Tonsillectomy and adenoidectomy Social History Smoking/Tobacco Use Status: Former Tobacco Use Smoking risk assessment performed?: Yes Alcohol Intake: current Alcohol Intake frequency: 0-2 drinks per day Alcohol type: wine Details: 1/2 bottle of wine/day Drug use: Daily Substance use type: marijuana Details: two tokes for sleep Do you feel safe at home: Yes Do you feel safe in your relationship?: Yes Additional Social history: Lives alone in home in [facility], has a cat. One sister in [place]
[2022-03-22] MEDS: Ketorolac 15 MG/ML VIAL IVP (11:05)
[2022-03-22] MEDS: Normal Saline Flush 10 ML SYR IVP (11:05)
--- NOTE | 2022-03-22 13:48 | PTTR_ITS ---
Date of service: 03/22/22 Time of Service: 09:18 PT Notes Visit Reasons: Vertebral Compression Fractures Inpatient Physical Therapy Treatment Note [facility] Date: 03/22/2022 PRECAUTIONS: Fall, activity as tolerated, back pain SUBJECTIVE: Elvi is pleasant and agreeable to participating in PT. She states that she continues to feel better after she receives pain medication. She indicates that is her biggest concern if she discharges to home from the hospital versus a SNF-level rehab. OBJECTIVE: PAIN: No c/o pain BED MOBILITY/TRANSFERS Supine-sit: I Sit-supine: I Sit-stand: S Stand-sit: S GAIT Assistive Device: FWW Weight bearing: Full Assist: SBA Distance: 100' Deviation: None WHEELCHAIR NEGOTIATION: Per instruction, patient was observed performing self- propulsion with B UE and B LE over level surface x100' with wheelchair without rest nor cueing. THEREX: Patient was instructed in a core strengthening and stabilization program, completed in a supine position, to include: PPT, bridging, bent-knee fallouts, SKTC and DKTC exercises without complaint of LBP. ASSESSMENT: Patient tolerated session well, without complaint of back pain. She was able to tolerate the addition of core stabilization exercises as well as wheelchair propulsion. She demonstrates independence with bed mobility at this time, as well as imporved gait mechanics and speed and transfers. PLAN: Patient to discharge to SNF-level rehab later today, per provider, prior to returning to home for continued global strengthening. TREATMENT CODE/TIME: 41 minutes; 17998 x2, 52148 (09:18)
== END 2022-03-22 13:05 | disposition skilled nursing facility (03) | DRG 552 ==
LOC: ER 06:31 → MS 16:18
PROVIDERS: Internal Medicine; Admitting Provider Family Medicine; Emergency Provider Emergency Medicine; PCP Family Medicine; Visit Provider Family Medicine
DX: S22.080A Wedge compression fracture of T11-T12 vertebra, initial encounter for closed fracture (principal); N39.0 Urinary tract infection, site not specified; S22.060A Wedge compression fracture of T7-T8 vertebra, initial encounter for closed fracture; S22.050A Wedge compression fracture of T5-T6 vertebra, initial encounter for closed fracture; J44.9 Chronic obstructive pulmonary disease, unspecified; I10 Essential (primary) hypertension; K21.9 Gastro-esophageal reflux disease without esophagitis; M47.814 Spondylosis without myelopathy or radiculopathy, thoracic region; F32.9 Major depressive disorder, single episode, unspecified; G47.00 Insomnia, unspecified; D64.9 Anemia, unspecified; G89.11 Acute pain due to trauma; N95.1 Menopausal and female climacteric states; F10.10 Alcohol abuse, uncomplicated; Z79.890 Hormone replacement therapy; Z79.891 Long term (current) use of opiate analgesic; W01.0XXA Fall on same level from slipping, tripping and stumbling without subsequent striking against object, initial encounter; B96.20 Unspecified Escherichia coli [E. coli] as the cause of diseases classified elsewhere; M79.7 Fibromyalgia; Y92.019 Unspecified place in single-family (private) house as the place of occurrence of the external cause
CPT/HCPCS: 36415; 80053; 85027; 87077; 87635; 96372; 97110; 97161; 97530; 99285; J1650; 72128; 72131; 81003; 81015; 82607; 82746; 85025; 87086; 87186; 99232; 99239; G0378; J0696; J1885; J3490

== ENCOUNTER 2022-04-01 10:16 | Outpatient (REF) | payer MEDICARE, MEDICAID, SELFPAY ==
[2022-04-01 10:29] LABS: Abs Immature Grans 0.02 10^3/uL (0.0-0.06); Absolute Basophil Count 0.05 10^3/uL (0.0-0.2); Absolute Eosinophil Count 0.36 10^3/uL (0.0-0.7); Absolute Lymphocyte Count 1.83 10^3/uL (1.2-3.4); Absolute Monocyte Count 0.53 10^3/uL (0.1-0.8); Absolute Neutrophil Count 2.55 10^3/uL (1.2-6.7); Basophils % 0.9; Eosinophils % 6.7; HCT 35.9 % (36.0-46.0); HGB 11.6 g/dL (11.2-15.7); Immature Grans % 0.4; Lymphocytes % 34.3; MCH 35.2 pg (27.0-33.0); MCHC 32.3 % (32.0-36.0); MCV 109 fL (80-95); MPV 10.2 fL (8.0-11.0); Monocytes % 9.9; Neutrophils % 47.8; Platelet Count 303 10^3/uL (130-400); RDW 12.4 % (11.7-14.6); WBC 5.34 10^3/uL (4.4-10.8)
[2022-04-01 10:51] LABS: ALT 37 U/L (14-59); AST 32 U/L (15-37); Albumin 3.2 g/dL (3.4-5.0); Alkaline Phosphatase 138 U/L (46-116); Anion Gap 6.2 mmol/L (3-11); BUN 21 mg/dL (7-18); Bilirubin, Total 0.3 mg/dL (0.2-1.0); CO2 29.8 mmol/L (21.0-32.0); CREATININE 0.6 mg/dL (0.55-1.02); Calcium 8.8 mg/dL (8.5-10.1); Chloride 106 mmol/L (98-107); Glucose 102 mg/dL (74-106); Potassium 4.7 mmol/L (3.5-5.1); Sodium 142 mmol/L (136-145); Total Protein 6.3 g/dL (6.4-8.2)
[2022-04-01 11:00] LABS: Diff Comment RBC Morph Reviewed; Macrocytosis 2+
== END 2022-04-01 10:17 | disposition home or self-care (01) ==
LOC: LBN 10:16
PROVIDERS: PCP Family Medicine; Visit Provider Nurse Practitioner Family
DX: D64.9 Anemia, unspecified (principal); I10 Essential (primary) hypertension; K52.89 Other specified noninfective gastroenteritis and colitis
CPT/HCPCS: 80053; 85025

== ENCOUNTER 2022-05-03 13:15 | Observation (INO) | payer MEDICARE, MEDICAID, SELFPAY ==
[2022-05-03] VITALS (41 sets, daily range): BP systolic 109–173; BP diastolic 49–92; PULSE 86–99; RESP 12–27; TEMP 36.6–37.7; O2SAT 85–97
--- NOTE | 2022-05-03 13:45 | ED.GENADUL_ITS ---
Discharge Plan Disposition Patient Disposition: [facility] INPATIENT Condition: Fair Discharge Details Clinical Impression: Acute exacerbation of chronic low back pain, Fall, Compression fx, thoracic spine, Chronic pain disorder Admit Date/Time: 05/03/22 19:59 Admit Provider: Xavier Hagen Attending Provider: Xavier Hagen Primary Care Provider: Iesha Leary ED Provider: Tyrell Doyle Discharge Data Discharge Date/Time-TO BE ENTERED AT DEPARTURE: 05/03/22 21:14 Medical Decision Making <Sarah Ann NP - Last Filed: 05/03/22 15:19> 81-year-old female presents to the ER status post mechanical fall yesterday. Patient was unable to get up from the fall. Spent the night on the floor. She states that she was unable to get up. She did take a hydrocodone at 8:00 this morning. She does have a past medical history of COPD, fibromyalgia, colitis, degenerative joint disease, compression fracture in her thoracic spine, he osteoarthritis, hypertension, obesity hyperlipidemia. Labs ordered including a CK, CT of the T and L-spine ordered. Zofran, hydromorphone and liter fluid ordered. 1517: Informed by staff that the chemistries need to be redrawn. Care is to be handed off to oncoming provider Edson Doyle NP pending CT results and labs. Medical Records Medical records reviewed: Yes I reviewed the patient's medical records. <Tyrell Doyle NP - Last Filed: 05/04/22 08:55> 81-year-old female presents to the ER status post mechanical fall yesterday. Patient was unable to get up from the fall. Spent the night on the floor. She states that she was unable to get up. She did take a hydrocodone at 8:00 this morning. She does have a past medical history of COPD, fibromyalgia, colitis, degenerative joint disease, compression fracture in her thoracic spine, he osteoarthritis, hypertension, obesity hyperlipidemia. Labs ordered including a CK, CT of the T and L-spine ordered. Zofran, hydromorphone and liter fluid ordered. 1517: Informed by staff that the chemistries need to be redrawn. Care is to be handed off to oncoming provider Edson Doyle NP pending CT res ults and labs. 1600 assumed care from Sarah Ann NP. Labs reviewed and overall unremarkable with no diagnostic findings noted. Reviewed CT imaging and radiologist interpretation which shows no acute fractures but noted significant degenerative findings and T-spine compression fractures that are unchanged from February. Spoke with nursing who states that patient is a two-person assist. Discussed plan of care with patient and concern of her being discharged home due to her having no support after full discussion I do feel that patient should be admitted for further PT evaluation and safety planning for discharge purposes. Patient is agreement with this. Called and spoke with on-call hospitalist who agreed to admit patient for acute on chronic back pain and further safety planning prior to discharge. Imaging Data Radiologic Study: Imaging: CT Scan Radiologist's impression: xam(s) Addendum created by Cyndy Love DO on 05/03/2022 7:14:33 PM EDT: Addendum, 05/02/2022: Multilevel vertebral body compression fractures and bone demineralization most consistent with osteoporosis. T8 and T12 vertebra plana and T6 and T7 fractures with approximately 50% vertebral body height loss, UNCHANGED since March 19, 2022. Multilevel degenerative changes. If persistent clinical concern, advise low threshold for on MRI. The findings were verbally communicated via telephone conference at 7:13 PM EDT on 05/03/2022 with JAYLEN Doyle The findings were acknowledged and understood. Initial report created on 05/03/2022 6:11:26 PM EDT: PROCEDURE INFORMATION: Exam: CT Thoracic Spine Without Contrast Exam date and time: 05/03/2022 5:14 PM Age: 81 years old Clinical indication: Other: Fall, TECHNIQUE: Imaging protocol: Computed tomography of the thoracic spine without contrast. Radiation optimization: All CT scans at this facility use at least one of these dose optimization a a: automated exposure control; mA and/or kV adjustment per patient size (includes targeted exams where dose is matched to clinical indication); or iterative reconstruction. COMPARISON: CT THORACIC LUMBAR SPINE WO 03/19/2022 4:30 AM FINDINGS: Multilevel vertebral body compression fractures and bone demineralization most consistent with osteoporosis. T8 and T12 compression fractures with vertebra plana or deformities. T6 and T7 compression fractures with approximately 50% vertebral body height loss. Similar mild anterolisthesis of T1 on T2. No definite acute fracture or malalignment. Moderate multilevel degenerative change including disc space narrowing,, endplate sclerosis, marginal spurring and facet arthropathy. No significant soft tissue abnormality. IMPRESSION: Multilevel vertebral body compression fractures and bone demineralization most consistent with osteoporosis. Multilevel degenerative changes. If concern persists, consider MRI for assessment of cord, canal, paraspinal soft tissues PROCEDURE INFORMATION: Exam: CT Lumbar Spine Without Contrast Exam date and time: 05/03/2022 5:14 PM Age: 81 years old Clinical indication: Other: Fall, TECHNIQUE: Imaging protocol: Computed tomography of the lumbar spine without contrast. Radiation optimization: All CT scans at this facility use at least one of these dose optimization techniques: automated exposure control; mA and/or kV adjustment per patient size (includes targeted exams where dose is matched to clinical indication); or iterative reconstruction. COMPARISON: CT THORACIC LUMBAR SPINE WO 03/19/2022 4:30 AM FINDINGS: Bones appear demineralized Alignment is essentially anatomic. Vertebral body heights are preserved. No acute fracture or malalignment. No aggressive bone lesion. Moderate multilevel degenerative change including disc space narrowing, marginal spurring and facet arthropathy. Tortuous atheromatous abdominal aorta. IMPRESSION: Moderate multilevel degenerative change. No acute fracture. If concern persists, consider MRI for assessment of cord, canal, paraspinal soft tissues HPI <Sarah Ann NP - Last Filed: 05/03/22 15:19> General Mode of arrival: EMS . Date/Time Provider Initiated Documentation: 05/03/22 13:18 . Limitations to Documentation: no limitations . Information obtained by: patient, RN notes reviewed and old records reviewed . HPI Narrative: 81-year-old female presents to the ER status post mechanical fall yesterday. Patient was unable to get up from the fall. Spent the night on the floor. She states that she was unable to get up. She did take a hydrocodone at 8:00 this morning. She does have a past medical history of COPD, fibromyalgia, colitis, degenerative joint disease, compression fracture in her thoracic spine, he osteoarthritis, hypertension, obesity hyperlipidemia. She denies any loss of bowel or bladder control denies any numbness or tingling. She does have right lower back pain and spasming. No other injuries noted. She did not hit her head no loss of consciousness Related Data Home Medications Medication Instructions Recorded Confirmed cholecalciferol (vitamin D3) 10 800 unit PO DAILY 12/06/13 04/11/22 mcg (400 unit) tablet (Vitamin D3) ferrous sulfate 325 mg (65 mg 325 mg PO TID 12/06/13 04/11/22 iron) tablet glucosamine sulfate 2KCl 1,000 mg 500 mg PO BID 12/06/13 05/03/22 tablet ascorbic acid (vitamin C) 1,000 mg 4,000 mg PO DAILY 03/22/14 04/11/22 tablet duloxetine 60 mg capsule,delayed 60 mg PO DAILY 11/15/16 05/03/22 release (Cymbalta) medroxyprogesterone 2.5 mg tablet 2.5 mg PO DAILY 11/18/16 05/03/22 (Provera) potassium chloride 20 mEq 20 meq PO TID 11/25/16 05/03/22 tablet,extended release(part/cryst) fluticasone propionate 50 0 spray intranasal BID 09/19/20 05/03/22 mcg/actuation nasal spray,suspension lidocaine 5 % topical patch 1 patch topical Q24H #4 ea 09/19/20 04/11/22 (Lidoderm) duloxetine 30 mg capsule,delayed 30 mg PO DAILY 03/19/22 04/11/22 release hydrocodone 5 mg-acetaminophen 325 1 tab PO QID PRN PRN 03/19/22 04/11/22 mg tablet quetiapine 50 mg tablet 50 mg PO QPM 03/19/22 05/03/22 trazodone 100 mg tablet 200 mg PO HS 03/19/22 05/03/22 albuterol sulfate 90 mcg/actuation 2 puff inhalation Q4H PRN PRN #0 03/22/22 04/11/22 aerosol inhaler (Ventolin HFA) grams baclofen 10 mg tablet 5 mg PO TID #0 tabs 03/22/22 05/03/22 cephalexin 500 mg tablet 500 mg PO TID #8 tabs 03/22/22 04/11/22 diazepam 2 mg tablet 2 mg PO TID PRN PRN #6 tabs 03/22/22 05/03/22 esomeprazole magnesium 40 mg 40 mg PO DAILY@0730 #0 caps 03/22/22 05/03/22 capsule,delayed release (Nexium) hydrocodone 5 mg-acetaminophen 325 1 - 2 tab PO Q4H PRN PRN Analgesia 03/22/22 05/03/22 mg tablet #12 tabs Previous Rx's Medication Instructions Recorded lidocaine 5 % topical patch 1 patch topical Q24H #4 ea 09/19/20 (Lidoderm) albuterol sulfate 90 mcg/actuation 2 puff inhalation Q4H PRN PRN #0 03/22/22 aerosol inhaler (Ventolin HFA) grams baclofen 10 mg tablet 5 mg PO TID #0 tabs 03/22/22 cephalexin 500 mg tablet 500 mg PO TID #8 tabs 03/22/22 diazepam 2 mg tablet 2 mg PO TID PRN PRN #6 tabs 03/22/22 esomeprazole magnesium 40 mg 40 mg PO DAILY@0730 #0 caps 03/22/22 capsule,delayed release (Nexium) hydrocodone 5 mg-acetaminophen 325 1 - 2 tab PO Q4H PRN PRN Analgesia 03/22/22 mg tablet #12 tabs Allergies Allergy/AdvReac Type Severity Reaction Status Date / Time fentanyl AdvReac Verified 05/03/22 13:21 General Stated Complaint: Nk/Back Pain MELISSA: 3 Review of Systems <Sarah Ann NP - Last Filed: 05/03/22 15:19> All systems reviewed & are unremarkable except as noted in HPI and below ENT Ears, Nose, Mouth, and Throat: Denies neck pain Musculoskeletal Musculoskeletal: Reports back pain, Denies neck pain and Reports stiffness PFSH <Sarah Ann NP - Last Filed: 05/03/22 15:19> All Active Problems (Updated 05/04/22 @ 08:55 by Tyrell Doyle NP) Acute exacerbation of chronic low back pain (Acute) Palliative care encounter (Acute) Full code status (Acute) E. 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 fell down and could not get up Hypertension (Chronic) with labile blood pressure. Morbid obesity (Chronic) Allergic rhinitis (Chronic) Hyperlipidemia (Chronic) History of anemia (Chronic) Fibromyalgia (Chronic) DJD (degenerative joint disease) (Chronic) Chronic depression (Chronic) Insomnia (Chronic) Gastroesophageal reflux disease (Chronic) Hiatal hernia (Chronic) Irritable bowel syndrome (Chronic) History of surgery (Chronic) a. S/P open right ankle fracture/dislocation. b. Left knee arthroscopy. c. Right wrist fracture repair. d. T/A as a child. Dehydration, mild (Acute 09/22/14) Housing or economic circumstance (Chronic 09/22/14) a. No heat for 1-1/2 days H/O fall (Chronic) Anemia (Chronic) Person living alone (Chronic 09/22/14) Alcohol withdrawal delirium (Acute 09/22/14) Rhabdomyolysis (Acute 09/22/14) Alcohol dependence (Chronic) Ataxia (Chronic) COPD (chronic obstructive pulmonary disease) (Chronic) Onychomycosis (Chronic) Depression (Chronic) Medical History Alcohol abuse Allergic rhinitis Anemia Depression DJD (degenerative joint disease) Fibromyalgia GERD (gastroesophageal reflux disease) Hiatal hernia Hypercholesterolemia Hyperlipidemia Hypertension IBS (irritable bowel syndrome) Insomnia Surgical History Arthroplasty of knee left Colonoscopy - MAC (11/18/16) ORIF right ankle Repair fracture right wrist Tonsillectomy and adenoidectomy Social History Smoking/Tobacco Use Status: Former Tobacco Use Smoking risk assessment performed?: Yes Alcohol Intake: current Alcohol Intake frequency: 0-2 drinks per day Alcohol type: wine Details: 1/2 bottle of wine/day Drug use: Daily Substance use type: does not use and marijuana Details: two tokes for sleep Do you feel safe at home: Yes Do you feel safe in your relationship?: Yes Additional Social history: Lives alone in home in [facility], has a cat. One sister in [place] Exam <Sarah Ann NP - Last Filed: 05/03/22 15:19> Narrative Exam Narrative: General: Well Developed, Awake and Alert, conversant. Skin: Warm and Dry HEENT: Head: No palpable deformities, Normocephalic Eyes: Pupils PERRLA, EOM's intact. No periorbital eccymosis or step off Ears: Canal patent. Tympanic membranes are clear . No montero's sign, no hemptympanum. Nose/Face: Atraumatic. Facial bones nontender to palpation and stable with manipulation. Mouth/Throat: No intraoral trauma. Teeth and mandible are intact. Neck: No midline tenderness, no step off, no deformity to palpation of C-spine. Trachea midline. Chest: No surface trauma. Nontender without crepitus or deformity. Lungs clear to ausculatation bilaterally. Heart: RRR, no rubs, murmurs or gallop. Abdomen: No abrasions, ecchymosis, or surface trauma. Nondistended. Nontender to palpation no guarding, rebound, or rigidity. Pelvis: Nontender to palpation and stable to compression. Femoral pulses strong and equal Extremities: no surface trauma. Sensation intact. Peripheral pulses intact and equal. Neuro: ANO x4, GCS 15, cranial nerves II through XII intact. Motor and sensory exam nonfocal. Reflexes are symmetric. Course <Sarah Ann NP - Last Filed: 05/03/22 15:19> Vital Signs Vital signs: Vital Signs Temperature 36.6 C 05/03/22 13:14 Pulse 89 05/03/22 13:14 Respiratory Rate 16 05/03/22 13:14 Blood Pressure 139/80 05/03/22 13:14 Pulse Oximetry 96 05/03/22 13:14 Temperature 36.6 C 05/03/22 13:14 Pulse 89 05/03/22 13:14 Respiratory Rate 16 05/03/22 13:14 Respiratory Effort 05/03/22 13:23 Blood Pressure 139/80 05/03/22 13:14 Pulse Oximetry 96 05/03/22 13:14 Pain Level 10 05/03/22 13:14 Comment 05/03/22 13:14 Sign Out <Sarah Ann NP - Last Filed: 05/03/22 15:19> Sign Out Data: Sign Out Comment: Fell last night, unable to get up. Spent night on floor. C/O Right lower lumbar pain. Hx of Compression fractures to thoracic spine. A& o x 4 Last updated by Sarah Ann NP at 05/03/22 15:15
[2022-05-03 14:46] LABS: Abs Immature Grans 0.01 10^3/uL (0.0-0.06); Absolute Basophil Count 0.02 10^3/uL (0.0-0.2); Absolute Eosinophil Count 0.05 10^3/uL (0.0-0.7); Absolute Lymphocyte Count 0.92 10^3/uL (1.2-3.4); Absolute Monocyte Count 0.72 10^3/uL (0.1-0.8); Absolute Neutrophil Count 4.49 10^3/uL (1.2-6.7); Basophils % 0.3; Eosinophils % 0.8; HCT 36.3 % (36.0-46.0); HGB 12.9 g/dL (11.2-15.7); Immature Grans % 0.2; Lymphocytes % 14.8; MCH 35.4 pg (27.0-33.0); MCHC 35.5 % (32.0-36.0); MCV 100 fL (80-95); MPV 9.5 fL (8.0-11.0); Monocytes % 11.6; Neutrophils % 72.3; Platelet Count 261 10^3/uL (130-400); RBC 3.64 10^6/uL (3.93-5.22); RDW 12.4 % (11.7-14.6); RDW-SD 45.9 fL; WBC 6.21 10^3/uL (4.4-10.8)
[2022-05-03 16:17] LABS: ALT 18 U/L (14-59); AST 32 U/L (15-37); Albumin 3.2 g/dL (3.4-5.0); Alkaline Phosphatase 114 U/L (46-116); Anion Gap 5.7 mmol/L (3-11); BUN 9 mg/dL (7-18); Bilirubin, Total 0.6 mg/dL (0.2-1.0); CO2 31.3 mmol/L (21.0-32.0); CREATININE 0.5 mg/dL (0.55-1.02); Calcium 8.8 mg/dL (8.5-10.1); Chloride 99 mmol/L (98-107); Creatine Kinase 120 U/L (26-192); Estimated GFR 94.17 (mL/min/1.73m2); Glucose 95 mg/dL (74-106); Magnesium 2.1 mg/dL (1.8-2.4); Potassium 4.2 mmol/L (3.5-5.1); Sodium 136 mmol/L (136-145); Total Protein 6.8 g/dL (6.4-8.2)
[2022-05-03] MEDS: Ondansetron 4 MG/2 ML VIAL IVP (16:27)
[2022-05-03] MEDS: HYDROmorphone 2 MG/ML SYR 0.5 MG IVP (16:30)
--- NOTE | 2022-05-03 17:14 | DI.CT_ITS ---
Exam(s) CT THORACIC LUMBAR SPINE WO EXAM: CT THORACIC LUMBAR SPINE WO CLINICAL HISTORY: Fall,. TECHNIQUE: Imaging Protocol: Axial computed tomography images with coronal and sagittal reformatted images were created and reviewed. CONTRAST MATERIAL: None COMPARISON: CT CT THORACIC LUMBAR SPINE WO from 03/19/2022 FINDINGS: THORACIC SPINAL COLUMN: There is diffuse osteopenia again evident. There is degenerative anterolisth esis C7 upon T1 again noted. T6 compression fracture is unchanged. T8 compression fracture is uncha nged. T7 compression fracture is unchanged. T12 vertebra plana compression fracture again noted. N o new additional compression fractures evident. No facet malalignment. LUMBOSACRAL SPINAL COLUMN: There is diffuse osteopenia again noted. Multilevel chronic degenerative disc disease again noted. T12 compression fracture again noted. Elimination of the disc space betwe en L1 and L2 is unchanged. No new compression fractures. No new listhesis. There is a unilateral p ars defect at L5 noted, unchanged from 03/19/2022. There is no listhesis of L5 upon S1 and the L5-S1 disc space continues to exhibit normal height. IMPRESSION: Findings as above but without significant change compared to 03/19/2022. If clinically indicated fol low-up MRI can be performed for added sensitivity/specificity. No focal osseous lesions evident. RADIATION DOSE DELIVERED: 1,196.86mGy.cm Total DLP DATA REPOSITORY: All CT scans at this facility are submitted to the National Radiology Data Registry (NRDR) Dose Index Registry (DIR) with the [employer] ([employer]). RADIATION OPTIMIZATION: All CT scans at this facility use at least one of these dose optimization te chniques: automated exposure control; mA and/or kV adjustment per patient size (includes targeted exa ms where dose is matched to clinical indication); or iterative reconstruction.
[2022-05-03] MEDS: Normal Saline 1,000 ML 1000 ML IV (17:39)
--- NOTE | 2022-05-03 18:11 | DI.VRAD_ITS ---
Addendum created by Cyndy Love DO on 05/03/2022 7:14:33 PM EDT: Addendum, 05/02/2022: Multilevel vertebral body compression fractures and bone demineralization most consistent with osteoporosis. T8 and T12 vertebra plana and T6 and T7 fractures with approximately 50% vertebral body height loss, UNCHANGED since March 19, 2022. Multilevel degenerative changes. If persistent clinical concern, advise low threshold for on MRI. The findings were verbally communicated via telephone conference at 7:13 PM EDT on 05/03/2022 with JAYLEN Doyle The findings were acknowledged and understood. Initial report created on 05/03/2022 6:11:26 PM EDT: PROCEDURE INFORMATION: Exam: CT Thoracic Spine Without Contrast Exam date and time: 05/03/2022 5:14 PM Age: 81 years old Clinical indication: Other: Fall, TECHNIQUE: Imaging protocol: Computed tomography of the thoracic spine without contrast. Radiation optimization: All CT scans at this facility use at least one of these dose optimization a a: automated exposure control; mA and/or kV adjustment per patient size (includes targeted exams where dose is matched to clinical indication); or iterative reconstruction. COMPARISON: CT THORACIC LUMBAR SPINE WO 03/19/2022 4:30 AM FINDINGS: Multilevel vertebral body compression fractures and bone demineralization most consistent with osteoporosis. T8 and T12 compression fractures with vertebra plana or deformities. T6 and T7 compression fractures with approximately 50% vertebral body height loss. Similar mild anterolisthesis of T1 on T2. No definite acute fracture or malalignment. Moderate multilevel degenerative change including disc space narrowing,, endplate sclerosis, marginal spurring and facet arthropathy. No significant soft tissue abnormality. IMPRESSION: Multilevel vertebral body compression fractures and bone demineralization most consistent with osteoporosis. Multilevel degenerative changes. If concern persists, consider MRI for assessment of cord, canal, paraspinal soft tissues PROCEDURE INFORMATION: Exam: CT Lumbar Spine Without Contrast Exam date and time: 05/03/2022 5:14 PM Age: 81 years old Clinical indication: Other: Fall, TECHNIQUE: Imaging protocol: Computed tomography of the lumbar spine without contrast. Radiation optimization: All CT scans at this facility use at least one of these dose optimization techniques: automated exposure control; mA and/or kV adjustment per patient size (includes targeted exams where dose is matched to clinical indication); or iterative reconstruction. COMPARISON: CT THORACIC LUMBAR SPINE WO 03/19/2022 4:30 AM FINDINGS: Bones appear demineralized Alignment is essentially anatomic. Vertebral body heights are preserved. No acute fracture or malalignment. No aggressive bone lesion. Moderate multilevel degenerative change including disc space narrowing, marginal spurring and facet arthropathy. Tortuous atheromatous abdominal aorta. IMPRESSION: Moderate multilevel degenerative change. No acute fracture. If concern persists, consider MRI for assessment of cord, canal, paraspinal soft tissues Dictated and Authenticated by: Cyndy Love MD. Ordering:JONG Smith MD
[2022-05-03 18:28] LABS: Bilirubin Negative (Negative); Blood Negative (Negative); Clarity Clear (Clear); Glucose Negative (Negative); Ketones 15 mg/dL (Negative); Leukocyte Esterase Small (Negative); Nitrite Negative (Negative); Urobilinogen 0.2 EU/dL (Up TO 0.2)
[2022-05-03 18:38] LABS: Epithelial Cells Many HPF (Negative); RBC 0-2 HPF (0-2)
[2022-05-03 18:39] LABS: Bacteria Few HPF (Negative); C & S Indicated? No/Sq. Contamination; Crystals Negative HPF (Negative); Mucus Negative (Negative)
--- NOTE | 2022-05-03 19:57 | HPE_ITS ---
Date of service: 05/03/22 Time of Service: 19:57 Assessment and Plan Assessment and plan (1) Fall: Start date: 05/03/22 Status: Acute Assessment and plan: This is an 81-year-old lady who has frequent falls with compression fractures but no acute injury with recent fall. She is unable to ambulate without to assist which would not allow her to return home from the ED. She is in pain and this will be managed with her usual pain medications with PT and OT to evaluate patient for home care versus use of assistive devices. She may need placement for rehabilitation if she cannot return home. She is a full code. Further imaging if indicated with rehabilitation. (2) Compression fx, thoracic spine: Status: Chronic Assessment and plan: Previous compression fractures appear stable with no new findings on CT scan. Symptomatic management with rehabilitation. Patient needs to be evaluated on strengthening and safe ambulation to avoid recurrent falls. Her medications may be sedating and may need to be reevaluated. (3) Chronic pain disorder: Status: Chronic Assessment and plan: Patient is on multiple sedating medications at this need to be reevaluated to avoid frequent falls. This will be difficult with the patient set in her ways for decades. She appears to be resistant to any change. She is a full code. History of Present Illness History of Present Illness Chief Complaint: Fall at home with previous compression fractures and back pain Narrative: This is an 81-year-old lady who has chronic pain with fibromyalgia since 1994 on antispasmodics and chronic narcotic therapy who has had a recent admission for compression fracture with slow recovery and continues to have problems at home with ambulation. She was on the floor overnight after falling at home the day prior to admission with no elevation of her CPK and somehow also having access to her hydrocodone which was taken the morning of admission. She was evaluated in the ED after being found and brought in for evaluation findings no acute fractures by CT of the thoracic and lumbar spine but being to assist to ambulate and having extreme spasm over the right side. She appeared agitated and bothered by questions about her health ruminating over her chronic pain as well as her chronic GI symptoms with colitis and loose stools. She is debilitated and does not live alone but appears to have been on the floor without help overn ight prior to admission. Her other chronic medical problems appear to be stable. She was more concerned about her baclofen dosing and states that she does not take Valium but may take diazepam. There is some slight confusion about her medical regimen. She is on multiple sedating medications. She remains a full code. Review of Systems Narrative: 13 point review of systems otherwise unrevealing or stable. PFSH All Active Problems (Updated 05/04/22 @ 13:04 by Xavier Hagen) Acute exacerbation of chronic low back pain (Acute) Palliative care encounter (Acute) Full code status (Acute) E. 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 fell down and could not get up Hypertension (Chronic) with labile blood pressure. Morbid obesity (Chronic) Allergic rhinitis (Chronic) Hyperlipidemia (Chronic) History of anemia (Chronic) Fibromyalgia (Chronic) DJD (degenerative joint disease) (Chronic) Chronic depression (Chronic) Insomnia (Chronic) Gastroesophageal reflux disease (Chronic) Hiatal hernia (Chronic) Irritable bowel syndrome (Chronic) History of surgery (Chronic) a. S/P open right ankle fracture/dislocation. b. Left knee arthroscopy. c. Right wrist fracture repair. d. T/A as a child. Dehydration, mild (Acute 09/22/14) Housing or economic circumstance (Chronic 09/22/14) a. No heat for 1-1/2 days H/O fall (Chronic) Anemia (Chronic) Person living alone (Chronic 09/22/14) Alcohol withdrawal delirium (Acute 09/22/14) Rhabdomyolysis (Acute 09/22/14) Alcohol dependence (Chronic) Ataxia (Chronic) COPD (chronic obstructive pulmonary disease) (Chronic) Onychomycosis (Chronic) Depression (Chronic) Medical History Alcohol abuse Allergic rhinitis Anemia Depression DJD (degenerative joint disease) Fibromyalgia GERD (gastroesophageal reflux disease) Hiatal hernia Hypercholesterolemia Hyperlipidemia Hypertension IBS (irritable bowel syndrome) Insomnia Surgical History Arthroplasty of knee left Colonoscopy - MAC (11/18/16) ORIF right ankle Repair fracture right wrist Tonsillectomy and adenoidectomy Social History Smoking/Tobacco Use Status: Former Tobacco Use Smoking risk assessment performed?: Yes Alcohol Intake: current Alcohol Intake frequency: 0-2 drinks per day Alcohol type: wine Details: 1/2 bottle of wine/day Drug use: Daily Substance use type: does not use and marijuana Details: two tokes for sleep Do you feel safe at home: Yes Do you feel safe in your relationship?: Yes Additional Social history: Lives alone in home in [facility], has a cat. One sister in [place] Meds Allergies and Home Medications Allergies Allergy/AdvReac Type Severity Reaction Status Date / Time fentanyl AdvReac Verified 05/03/22 13:21 Home Medications Medication Instructions Recorded Confirmed Type cholecalciferol (vitamin D3) 10 800 unit PO DAILY 12/06/13 04/11/22 History mcg (400 unit) tablet (Vitamin D3) ferrous sulfate 325 mg (65 mg 325 mg PO TID 12/06/13 04/11/22 History iron) tablet glucosamine sulfate 2KCl 1,000 mg 500 mg PO BID 12/06/13 05/03/22 History tablet ascorbic acid (vitamin C) 1,000 mg 4,000 mg PO DAILY 03/22/14 04/11/22 History tablet duloxetine 60 mg capsule,delayed 60 mg PO DAILY 11/15/16 05/03/22 History release (Cymbalta) medroxyprogesterone 2.5 mg tablet 2.5 mg PO DAILY 11/18/16 05/03/22 History (Provera) potassium chloride 20 mEq 20 meq PO TID 11/25/16 05/03/22 History tablet,extended release(part/cryst) fluticasone propionate 50 0 spray intranasal BID 09/19/20 05/03/22 History mcg/actuation nasal spray,suspension lidocaine 5 % topical patch 1 patch topical Q24H #4 ea 09/19/20 04/11/22 Rx (Lidoderm) duloxetine 30 mg capsule,delayed 30 mg PO DAILY 03/19/22 04/11/22 History release hydrocodone 5 mg-acetaminophen 325 1 tab PO QID PRN PRN 03/19/22 04/11/22 History mg tablet quetiapine 50 mg tablet 50 mg PO QPM 03/19/22 05/03/22 History trazodone 100 mg tablet 200 mg PO HS 03/19/22 05/03/22 History albuterol sulfate 90 mcg/actuation 2 puff inhalation Q4H PRN PRN #0 03/22/22 04/11/22 Rx aerosol inhaler (Ventolin HFA) grams baclofen 10 mg tablet 5 mg PO TID #0 tabs 03/22/22 05/03/22 Rx cephalexin 500 mg tablet 500 mg PO TID #8 tabs 03/22/22 04/11/22 Rx diazepam 2 mg tablet 2 mg PO TID PRN PRN #6 tabs 03/22/22 05/03/22 Rx esomeprazole magnesium 40 mg 40 mg PO DAILY@0730 #0 caps 03/22/22 05/03/22 Rx capsule,delayed release (Nexium) hydrocodone 5 mg-acetaminophen 325 1 - 2 tab PO Q4H PRN PRN Analgesia 03/22/22 05/03/22 Rx mg tablet #12 tabs Exam Narrative Exam Narrative: General: Patient appears older than stated age, flattened affect with poor eye contact and depressed mood. She is agitated with questioning. She is alert and oriented at least to person, place and possibly time. She is in moderate distress from her discomfort over her right back with spasms. HEENT: Normocephalic, coarsened facial features. Eyes with pupils equal and reactive light symmetrically, extraocular movement tact and sclera anicteric. Oropharynx with moist mucosa. Neck: Supple without JVD. Back: Kyphotic with decreased range of motion and loss of lumbar lordosis, no CVA tenderness, increased discomfort to palpation over the entire thoracic spine with increased tone of the paraspinal muscles on the right more than left. Lungs: Bronchovesicular breath sounds diffusely with no focalizing rales or rhonchi. Heart: Regular rate and rhythm with no appreciable murmur or gallop. Breast: Exam deferred. Abdomen: Normal contour, soft to palpation with some discomfort and guarding to palpation left lower quadrant without rebound or palpable masses. No palpable hepatosplenomegaly. Bowel sounds positive but decreased in all quadrants. Genitalia/rectal: Exam deferred. Extremities: Without clubbing, cyanosis or pitting edema. Muscle atrophy over lower extremities. Skin: Pale color, warm and dry. Neuro: Cranial nerves II through XII grossly intact, no focal motor deficits. No tremor. Psych: Flattened affect with depressed mood with agitation especially with questioning. She gives short answers. No abnormal thought processes. Remote and recent memory grossly intact. Results Imaging Imaging Studies: Exam(s) CT THORACIC ? LUMBAR SPINE WO EXAM: ? CT THORACIC ? LUMBAR SPINE WO CLINICAL HISTORY: ? Fall,. ? TECHNIQUE:? Imaging Protocol: Axial computed tomography images with coronal and sagittal reformatted images were created and reviewed. CONTRAST MATERIAL:? None COMPARISON:? CT CT THORACIC ? LUMBAR SPINE WO from 03/19/2022 FINDINGS: THORACIC SPINAL COLUMN: There is diffuse osteopenia again evident.? There is degenerative anterolisthesis C7 upon T1 again noted.? T6 compression fracture is unchanged.? T8 compression fracture is unchanged.? T7 compression fracture is unchanged.? T12 vertebra plana compression fracture again noted.? No new additional compression fractures evident.? No facet malalignment. LUMBOSACRAL SPINAL COLUMN: There is diffuse osteopenia again noted.? Multilevel chronic degenerative disc disease again noted.? T12 compression fracture again noted.? Elimination of the disc space between L1 and L2 is unchanged.? No new compression fractures.? No new listhesis.? 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 There is no listhesis of L5 upon S1 and the L5-S1 disc space continues to exhibit normal height. IMPRESSION: Findings as above but without significant change compared to 03/19/2022.? If clinically indicated follow-up MRI can be performed for added sensitivity/specificity. No focal osseous lesions evident. Labs Result diagrams: 05/04/22 05:49 05/04/22 05:49 Labs: Laboratory Results - last 24 hr 05/03/22 05/03/22 05/03/22 14:40 14:40 14:40 WBC 6.21 RBC 3.64 L Hgb 12.9 Hct 36.3 MCV 100 H MCH 35.4 H MCHC 35.5 RDW 12.4 Plt Count 261 MPV 9.5 Immature Gran % 0.2 Neutrophils % 72.3 Lymphocytes % 14.8 Monocytes % 11.6 Eosinophils % 0.8 Basophils % 0.3 Nucleated RBC % 0.0 Absolute Neutrophils 4.49 Absolute Lymphocytes 0.92 L Absolute Monocytes 0.72 Absolute Eosinophils 0.05 Absolute Basophils 0.02 Sodium Cancelled Potassium Cancelled Chloride Cancelled Carbon Dioxide Cancelled Anion Gap Cancelled BUN Cancelled Creatinine Cancelled Est GFR (CKD-EPI 2020) Cancelled Glucose Cancelled Calcium Cancelled Magnesium Cancelled Total Bilirubin Cancelled AST Cancelled ALT Cancelled Alkaline Phosphatase Cancelled Creatine Kinase Cancelled Total Protein Cancelled Albumin Cancelled Urine Color Urine Clarity Urine pH Ur Specific [place] Urine Protein Urine Ketones Urine Blood Urine Nitrite Urine Bilirubin Urine Urobilinogen Ur Leukocyte Esterase Urine RBC Urine WBC Ur Epithelial Cells Urine Crystals Urine Bacteria Urine Mucus Urine Other Ur Culture Indicated? Urine Glucose 05/03/22 05/03/22 15:27 18:15 WBC RBC Hgb Hct MCV MCH MCHC RDW Plt Count MPV Immature Gran % Neutrophils % Lymphocytes % Monocytes % Eosinophils % Basophils % Nucleated RBC % Absolute Neutrophils Absolute Lymphocytes Absolute Monocytes Absolute Eosinophils Absolute Basophils Sodium 136 Potassium 4.2 Chloride 99 Carbon Dioxide 31.3 Anion Gap 5.7 BUN 9 Creatinine 0.5 L Est GFR (CKD-EPI 2020) 94.17 Glucose 95 Calcium 8.8 Magnesium 2.1 Total Bilirubin 0.6 AST 32 ALT 18 Alkaline Phosphatase 114 Creatine Kinase 120 Total Protein 6.8 Albumin 3.2 L Urine Color Yellow Urine Clarity Clear Urine pH 7.0 Ur Specific [place] 1.020 Urine Protein Negative Urine Ketones 15 H Urine Blood Negative Urine Nitrite Negative Urine Bilirubin Negative Urine Urobilinogen 0.2 Ur Leukocyte Esterase Small H Urine RBC 0-2 Urine WBC 10-20 H Ur Epithelial Cells Many Urine Crystals Negative Urine Bacteria Few Urine Mucus Negative Urine Other Many Transitional Ur Culture Indicated? No/Sq. Contamination Urine Glucose Negative Last Vital Signs Temp 36.6 C 05/03/22 13:14 Pulse 89 05/03/22 19:01 Resp 14 05/03/22 19:10 BP 112/56 L 05/03/22 19:01 Pulse Ox 92 05/03/22 19:10
[2022-05-03] MEDS: Baclofen 10 MG TAB 5 MG PO (20:56)
[2022-05-03 21:14] LABS: Source Nasal/Nares
[2022-05-03 21:56] LABS: COVID-19 PCR Negative (Negative)
[2022-05-03] MEDS: diazePAM 2 MG TAB PO (22:52)
[2022-05-03] MEDS: traZODone 100 MG TAB 200 MG PO (22:52)
[2022-05-03] MEDS: HYDROcodone 5/Acetaminophen 325 TAB PO (22:52)
[2022-05-03] MEDS: Heparin 5,000 UNITS/ML VIAL 5000 UNITS SC (22:52)
[2022-05-04 02:50] VITALS: BP 136/88; PULSE 87; RESP 18; TEMP 37.6; O2SAT 95
[2022-05-04] MEDS: Acetaminophen 325 MG TAB PO (02:50)
[2022-05-04 06:17] LABS: Abs Immature Grans 0.01 10^3/uL (0.0-0.06); Absolute Basophil Count 0.02 10^3/uL (0.0-0.2); Absolute Eosinophil Count 0.18 10^3/uL (0.0-0.7); Absolute Lymphocyte Count 1.33 10^3/uL (1.2-3.4); Absolute Monocyte Count 0.61 10^3/uL (0.1-0.8); Absolute Neutrophil Count 2.81 10^3/uL (1.2-6.7); Basophils % 0.4; Eosinophils % 3.6; HCT 30.6 % (36.0-46.0); HGB 10.7 g/dL (11.2-15.7); Immature Grans % 0.2; Lymphocytes % 26.8; MCH 35.1 pg (27.0-33.0); MCV 100 fL (80-95); MPV 9.9 fL (8.0-11.0); Monocytes % 12.3; Neutrophils % 56.7; Platelet Count 234 10^3/uL (130-400); RBC 3.05 10^6/uL (3.93-5.22); RDW 12.7 % (11.7-14.6); RDW-SD 46.9 fL; WBC 4.96 10^3/uL (4.4-10.8)
[2022-05-04] MEDS: Heparin 5,000 UNITS/ML VIAL 5000 UNITS SC ×2 (06:23→13:09)
[2022-05-04 06:51] LABS: ALT 14 U/L (14-59); AST 23 U/L (15-37); Albumin 2.6 g/dL (3.4-5.0); Alkaline Phosphatase 100 U/L (46-116); Anion Gap 6.3 mmol/L (3-11); BUN 8 mg/dL (7-18); Bilirubin, Total 0.6 mg/dL (0.2-1.0); CO2 28.7 mmol/L (21.0-32.0); CREATININE 0.6 mg/dL (0.55-1.02); Calcium 8.4 mg/dL (8.5-10.1); Chloride 101 mmol/L (98-107); Estimated GFR 90.12 (mL/min/1.73m2); Glucose 94 mg/dL (74-106); Potassium 3.6 mmol/L (3.5-5.1); Sodium 136 mmol/L (136-145); Total Protein 5.8 g/dL (6.4-8.2)
[2022-05-04 07:00] VITALS: PULSE 79
[2022-05-04 07:41] VITALS: BP 130/83; PULSE 73; RESP 18; TEMP 36.8; O2SAT 93
[2022-05-04] MEDS: Lidocaine 5% Patch 1 PATCH TP (08:02)
[2022-05-04] MEDS: Esomeprazole 40 MG CAPCR PO (08:03)
[2022-05-04] MEDS: Baclofen 10 MG TAB PO ×2 (08:03→13:08)
[2022-05-04] MEDS: DULoxetine 30 MG CAP 90 MG PO (08:03)
[2022-05-04] MEDS: Potassium Chloride 20 MEQ TABCR PO ×2 (08:03→12:11)
[2022-05-04] MEDS: Ascorbic Acid 500 MG TAB 4000 MG PO (08:03)
[2022-05-04] MEDS: Cholecalciferol (Vitamin D3) 400 UNIT TAB 800 UNIT PO (08:03)
[2022-05-04] MEDS: Ferrous Sulfate 325 MG TAB PO ×2 (08:03→13:09)
[2022-05-04] MEDS: medroxyPROGESTERone 5 MG TAB 2.5 MG PO (09:27)
[2022-05-04] MEDS: Fluticasone NASAL SPRAY 16 GM BTL NS (09:27)
--- NOTE | 2022-05-04 10:04 | PDOC.CMIN ---
- If Service Date Differs Date of service: 05/04/22 Time of Service: 10:04 Care Management Initial Assess REASON FOR HOSPITALIZATION:: Compression fracture thoracic spine PAST MEDICAL HISTORY/PAST SURGICAL HISTORY:: All Active Problems. Palliative care encounter (Acute). Full code status (Acute). E. coli UTI (Acute). Menopausal disorder (Acute). Chronic pain disorder (Chronic). Fall (Acute). Compression fx, thoracic spine (Acute). Osteoarthritis of left knee (Acute). Arthritis of right ankle (Chronic). 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 lymphocytic/collagenous colitis/proctitis. Fall (Acute 09/22/14). a. fell down and could not get up. Hypertension (Chronic). with labile blood pressure. Morbid obesity (Chronic). Allergic rhinitis (Chronic). Hyperlipidemia (Chronic). History of anemia (Chronic). Fibromyalgia (Chronic). DJD (degenerative joint disease) (Chronic). Chronic depression (Chronic). Insomnia (Chronic). Gastroesophageal reflux disease (Chronic). Hiatal hernia (Chronic). Irritable bowel syndrome (Chronic). History of surgery (Chronic). a. S/P open right ankle fracture/dislocation. b. Left knee arthroscopy. c. Right wrist fracture repair. d. T/A as a child. Dehydration, mild (Acute 09/22/14). Housing or economic circumstance (Chronic 09/22/14). a. No heat for 1-1/2 days. H/O fall (Chronic). Anemia (Chronic). Person living alone (Chronic 09/22/14). Alcohol withdrawal delirium (Acute 09/22/14). Rhabdomyolysis (Acute 09/22/14). Alcohol dependence (Chronic). Ataxia (Chronic). COPD (chronic obstructive pulmonary disease) (Chronic). Onychomycosis (Chronic). Depression (Chronic). Medical History. Alcohol abuse. Allergic rhinitis. Anemia. Depression. DJD (degenerative joint disease). Fibromyalgia. GERD (gastroesophageal reflux disease). Hiatal hernia. Hypercholesterolemia. Hyperlipidemia. Hypertension. IBS (irritable bowel syndrome). Insomnia. Surgical History. Arthroplasty of knee. left. Colonoscopy - MAC (11/18/16). ORIF right ankle. Repair fracture right wrist. Tonsillectomy and adenoidectomy PREVIOUS FUNCTIONAL STATUS/SOCIAL/FAMILY SUPPORTS:: Elvi lives alone in [facility]. She has no family locally but she remains in close contact with her sister, Marzena, who resides in [place], [place]. 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 Elvi does not drive but she cooks her own meals and is independent with her ADLs at baseline. CURRENT FUNCTIONAL STATUS:: Elvi was sitting up in a chair when CM met with her. She expressed frustration with her chronic pain, and the back spasms that she reports are new. She stated that she sees PT out patient, and finds that she gets good results from the pool therapy. She stated that she is not interested in services, as she is not home bound, but she would like an increase in her moderate needs supports for homemaking. CM reached out to Yessica Banuelos, her case resource manager from , and left a voicemail advocating for increased support. Elvi has been medically cleared for discharge today. CM will continue to follow. ADVANCE DIRECTIVES:: On file; sister, Marzena Pena, is appointed as Health Care Agent. Has patient been provided with info about the portal/API?: Yes Did the patient sign up for the portal?: No INSURANCE COVERAGE / FINANCIAL ISSUES:: [facility] CURRENT HOME/COMMUNITY SERVICES/EQUIPMENT:: Elvi has a homemaker every other week through [facility] moderate needs; Amber Banuelos is her case resource manager. Elvi does Aquatic Therapy through [facility]. She owns a cane, walker, wheelchair, ramp, and shower chair. PRIMARY CARE PHYSICIAN:: Iesha Leary POTENTIAL DISCHARGE NEEDS:: Follow up appointment with PCP and potential short term rehab. PATIENT/FAMILY EDUCATION NEEDS:: Review of discharge instructions; discuss Ask Me Three. ANTICIPATED BARRIERS TO DISCHARGE:: Elvi lives alone and has chronic back pain. She reported that she has concerns about being at home with no support. TRANSPORTATION:: Via private vehicle vs w/c van, depending on mobility. PLAN:: Anticipate Elvi will return home vs short term rehab prior to returning home. She will transport via private vehicle vs w/c van. She will follow up with her PCP and discharge plan of care. CM will continue to follow.
[2022-05-04 11:24] VITALS: BP 133/80; PULSE 96; RESP 18; TEMP 37.1; O2SAT 95
--- NOTE | 2022-05-04 11:45 | IN_ITS ---
Date of service: 05/04/22 Time of Service: 11:45 PT Notes Visit Reasons: Compression Fracture Thoracic Spine Physical Therapy Inpatient Initial Evaluation Date: 05/04/2022 Referring Doctor: Xavier Freire MD PT Orders: PT CONSULT: Limited ability Precautions: Fall. Standard. Activity as tolerated. Patient Profile/Admitting Diagnosis: Elvi is an 81-year-old female patient who with osteoporosis and fibromyalgia who presented to the ED on 05/04/2022 due to a mechanical fall on 05/03/2022. She reportedly spent the night on the floor before ED admission. Patient is diagnosed with mechanical fall, acute on chronic back pain, compression fracture, and chronic pain disorder. Thoracolumbar CT scan findings below did not show any new abnormality nor changes from CT scan. TLS CT scan FINDINGS from 03/19/2022 ?Multilevel vertebral body compression fractures and bone demineralization most consistent with osteoporosis. ?T8 and T12 compression fractures with vertebra plana or deformities. T6 and T7 compression fractures with approximately 50% vertebral body height loss. ?Similar mild anterolisthesis of T1 on T2. ?No definite acute fracture or malalignment. ?Moderate multilevel degenerative change including disc space narrowing,, endplate sclerosis, marginal spurring and facet arthropathy. ?No significant soft tissue abnormality. TLS CT scan FINDINGS from 05/03/2022 ?Bones appear demineralized ?Alignment is essentially anatomic. ?Vertebral body heights are preserved. ?No acute fracture or malalignment. ?No aggressive bone lesion. ?Moderate multilevel degenerative change including disc space narrowing, marginal spurring and facet arthropathy. ?Tortuous atheromatous abdominal aorta. Addendum created by Cyndy Love DO on 05/03/2022 7:14:33 PM EDT: Addendum, 05/02/2022: ?Multilevel vertebral body compression fractures and bone demineralization most consistent with osteoporosis. ?T8 and T12 vertebra plana and T6 and T7 fractures with approximately 50% vertebral body height loss, UNCHANGED since March 19, 2022. ?Multilevel degenerative changes. ?If persistent clinical concern, advise low threshold for on MRI. PMHX: All Active Problems?(Updated 05/04/22 @ 13:04 by Xavier Hagen) Acute exacerbation of chronic low back pain (Acute) Palliative care encounter (Acute) Full code status (Acute) E. 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 fell down and could not get upHypertension (Chronic) with labile blood pressure.Morbid obesity (Chronic) Allergic rhinitis (Chronic) Hyperlipidemia (Chronic) History of anemia (Chronic) Fibromyalgia (Chronic) DJD (degenerative joint disease) (Chronic) Chronic depression (Chronic) Insomnia (Chronic) Gastroesophageal reflux disease (Chronic) Hiatal hernia (Chronic) Irritable bowel syndrome (Chronic) History of surgery (Chronic) a. S/P open right ankle fracture/dislocation. b. Left knee arthroscopy. c. Right wrist fracture repair. d. T/A as a child.Dehydration, mild (Acute 09/22/14) Housing or economic circumstance (Chronic 09/22/14) a.? No heat for 1-1/2 daysH/O fall (Chronic) Anemia (Chronic) Person living alone (Chronic 09/22/14) Alcohol withdrawal delirium (Acute 09/22/14) Rhabdomyolysis (Acute 09/22/14) Alcohol dependence (Chronic) Ataxia (Chronic) COPD (chronic obstructive pulmonary disease) (Chronic) Onychomycosis (Chronic) Depression (Chronic) Medical History? Alcohol abuse Allergic rhinitis Anemia Depression DJD (degenerative joint disease) Fibromyalgia GERD (gastroesophageal reflux disease) Hiatal hernia Hypercholesterolemia Hyperlipidemia Hypertension IBS (irritable bowel syndrome) Insomnia Surgical History? Arthroplasty of knee left Colonoscopy - MAC (11/18/16) ORIF right ankle Repair fracture right wrist Tonsillectomy and adenoidectomy Social History/Home Situation: Patient lives alone in single level dwelling with ramp for entry.? Patient's baseline function mobility is with use of Rollator walker.? She uses her wheelchair inside her home.? Has been attending outpatient physical therapy at [facility] for aquatic therapy twice a week.? Chronic opioid use since 1994. Equipment Owned/DME: Wheelchair, Rollator walker, FWW, SPC Subjective:? Patient complains of pain in her back at 4-5/10 but is agreeable to trying out walking from bedside to bedside chair so she can be comfortably sitting for lunch. Denies headache, chest pain, and lightheadedness throughout session. Patient states that RAYMOND bailey used to come everyday but now only comes 1x in 2-3 weeks so she pays somebody to get her groceries. Objective:?? General Observation: Supine in bed. R leg crossed over the L. In NAD. Mental Status: Alert and oriented x 4 Pain: 4-5/10 throughout in the R mid back area ? ROM: Lumbar spine: Unable to fully extend trunk due to pain. Patient with trunk flexion at about 20 degrees from neutral. Able to laterally bedn trunk to aboit 20 degrees to the R and 10 to the L. Rotation limited to llimited to less than 10 degrees both sides. Right Upper Extremity: Glenohumeral joint flexion 90 degrees with significant shrug/scapular elevation secondary to chronic rotator cuff tear active assisted to 150 with min complaints of pain.? Elbow flexion extension within normal limits.? Wrist within normal limits, able to make full fist. Left Upper Extremity: Glenohumeral joint flexion and abduction 140 degrees, elbow flexion extension within normal limits, wrist active range of motion within normal limits.? Able to make a full fist. Right Lower Extremity: Hip within normal limits pain-free.? Patient is able to perform active hip flexion to 120 degrees without back pain.? Knee flexion and extension within normal limits. Left Lower Extremity: Hip range of motion active within normal limits pain- free.? Knee flexion 125 degrees, knee extension lacks 5 degrees (history of total knee replacement). Strength: Lumbar musculature: 3-/5 Right Upper Extremity: 3/5 shoulder flexion and abduction.? 4/5 bicep and tricep.? Wrist flexion and extension 4+/5.? 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 Wrist extension and flexion 4+/5.? 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 Right Lower Extremity: Hip flexors 4/5, quads 4/5, hamstrings 4 -/5, ankle dorsiflexion and plantarflexion 4/5. Left Lower Extremity: Hip flexors 4/5, quads 4/5, hamstrings 4 -/5, ankle dorsiflexion and plantarflexion 4/5. Sensation:? Patient reports intact sensation as to pain and light touch throughout bilateral lower extremities. Bed Mobility/Transfers: Supine? L sidelying: independent L sidelying to sit: independent Sit to stand: supervision Stand to sit: supervision Bed to chair supervision Gait:? Patient ambulated 20 feet with stand by assist with use of front-wheeled walker with trunk in a slightly bent position.? Ileana decreased. No report of spasms nor increase in pain in low back. No loss of balance. Balance:? Static Sitting: Good Dynamic Sitting: Good Static Standing: ? Fair Dynamic Standing: Fair Special Tests: Mobility Limitations Standardized Measure [facility] 6 clicks Basic Mobility Inpatient Short Form: Raw Score: 21 ? CMS Score: 21% ? ? SLR: No lateralization of pain in R and L Palpation: TTP to R low thoracic and upper lumbar paraspinals. Manual therapy: Downregulation technique over tender and tight R paraspinals in the lower thoracic and upper lumbar region for 2-3 minutes with good response from patient who verbalized that she felt good after short session. Informed Consent/Education:? Patient instructed in purpose of PT consult and plan of care. Assessment:?? Elvi is an 81-year-old female patient who with osteoporosis and fibromyalgia who presented to the ED on 05/04/2022 due to a mechanical fall on 05/03/2022. She reportedly spent the night on the floor before ED admission. Patient is diagnosed with mechanical fall, acute on chronic back pain, compression fracture, and chronic pain disorder. Thoracolumbar CT scan findings below did not show any new abnormality nor changes from CT scan. Patient presents with clinical signs and symptoms consistent with current/admitting diagnoses that have resulted to mobility limitations, gait instability, generalized weakness, and overall ADL decline as demonstrated by the following impairment level findings: 1. Decreased strength to lumbar musculature, B UE/LE major muscle groups as before 2. Impaired sstanding balance 3. Impaired activity tolerance 4. Limitation of joint range of motion in thoracolumbar spine and B shoulders, B LE (chronic) 5. Pain at 4-5/10 in TLS Impairments are contributing to the following functional limitations: 1. Decline in bed mobility skills 2. Decline in transfer skills 3. Difficulty with ambulation without assistive device 4. Increased completion time for mobility ADL performance 5. Increased risk for falls Patient is assessed as a 39151 moderate complexity based on the following: History: 81-year-old female with past medical history as indicated above Examination: Demonstrable impairment in strength, balance, and mobility level with underlying impairments and functional limitations as exhibited above as well as deficit score of 29% utilizing the [facility] Mobility Inpatient Short Form Presentation: Evolving Decision Makin moderate complexity Goals: Goals X1 week 1. Supine-Sit: Independent 2. Sit-Supine: Independent 3. Sit-Stand: Independent with front-wheeled walker 4. Stand-Sit: Independent 5. Bed-Chair: Independent with front-wheeled walker 6. Chair-Bed: Independent front-wheeled walker 7. Gait: Independent for 100 feet with front-wheeled walker ? Plan of Care/Treatment Plan: 1-2x/day, 7 days/week x 1 week. Plan of care has been reviewed with the [employer] providing the service under Physical Therapy direction. Initiate Physical Therapy intervention for strengthening, bed mobility, transfers, gait, stairs, balance training, use of assistive device.? DISCHARGE RECOMMENDATIONS:? [] Home with no services [] [] Home with services [specify] [] Home with outpatient PT [] [] SNF for continued rehabilitation [] [] [facility] [] [] SNF versus LTC based on ability to participate and progress [] [X] SNF vs. HH PT/OT/Home health aide services. Patient lives alone and does not feel safe going home due to her continued back symptoms. However she is able to walk short distances and is able to mobilize using her wheelchair per baseline. She will require help with housechores, grocery shopping, and transportaion to and from MD appointments. TREATMENT CODE/TIME: 89308 x 20 minutes beginning at 11:45 AM. Thank you for the opportunity to participate in the care of this patient. Kelsey Skelton PT, DPT, CLT [facility] [place], [place]
[2022-05-04] MEDS: diazePAM 2 MG TAB PO (12:43)
[2022-05-04] MEDS: Normal Saline Flush 10 ML SYR IVP (14:59)
[2022-05-04] MEDS: Ketorolac 15 MG/ML VIAL IVP (14:59)
[2022-05-04 15:07] VITALS: PULSE 89
[2022-05-04 15:42] VITALS: BP 125/75; PULSE 84; RESP 18; TEMP 37.1; O2SAT 97
--- NOTE | 2022-05-04 16:19 | W.PM.DS.N ---
Date of service: 05/04/22 Time of Service: 16:20 DS: Diagnosis Discharge Diagnosis (1) Fall: Status: Acute (2) Compression fx, thoracic spine: Status: Chronic (3) Chronic pain disorder: Status: Chronic Discharge Plan Disposition Patient Disposition: HOME Condition: Improving Discharge Details Reason For Visit: Compression Fracture Thoracic Spine Admit Date/Time: 05/03/22 19:59 Admit Provider: Xavier Hagen Attending Provider: Xavier Hagen Primary Care Provider: Iesha Leary Hospital Course Hospital Course: This is an 81-year-old female patient with a past medical history of chronic pain with fibromyalgia since 1994; on antispasmodics and chronic narcotic therapy, she has had a recent admission for a compression fracture with slow recovery and continues to have problems at home with ambulation. She presented [facility] ED on the floor overnight after falling at home the day before admission with no elevation of her CPK and had access to her hydrocodone which was taken the morning of admission. She was evaluated in the ED with findings of no acute fractures by CT of the thoracic and lumbar spine but she needed assistance to ambulate and complained of spasms over the right side of her back. She appeared agitated and bothered by questions about her health, ruminating over her chronic pain and her chronic GI symptoms with colitis and loose stools. Her other chronic medical problems appear to be stable. She was more concerned about her baclofen dosing and stated that she does not take Valium but may take diazepam. There is some slight confusion about her medical regimen. She is on multiple sedating medications. She remains a complete code. She was put on observation status on the medical floor and given pain medication, Valium, and baclofen. She was seen by PT today and could walk short distances and mobilize using her wheelchair per baseline. When I saw her, she could touch her toes and remove her socks without difficulty. She did not have any grimacing or verbalized pain. She was offered home health or SNF and declined both. She was discharged home and was recommended to follow up with PCP. There are no medication changes. Home Meds and New Rx's Prescriptions: Continued ferrous sulfate 325 MG tablet 325 mg PO TID cholecalciferol (vitamin D3) [Vitamin D3] 400 UNIT tablet 800 unit PO DAILY glucosamine sulfate 2KCl 1,000 MG tablet 500 mg PO BID ascorbic acid (vitamin C) 1,000 MG tablet 4,000 mg PO DAILY duloxetine [Cymbalta] 60 MG capsule,delayed release(DR/EC) 60 mg PO DAILY Rx Instructions: TAKES IN ADDITION TO A 30 MG CAP FOR A TOTAL OF 90 MG PO DAILY medroxyprogesterone [Provera] 2.5 MG tablet 2.5 mg PO DAILY quetiapine 50 mg tablet 50 mg PO QPM Label Comments: TAKE ONE TABLET BY MOUTH EVERY EVENING hydrocodone-acetaminophen 5-325 mg tablet 1 tab PO QID PRN PRN Hold Instructions: Resume on 03/22/22. per outpatient provider. duplicate entry Label Comments: TAKE ONE TABLET BY MOUTH FOUR TIMES A DAY DIRECTED duloxetine 30 mg capsule,delayed release(DR/EC) 30 mg PO DAILY Label Comments: TAKE ONE CAPSULE BY MOUTH EVERY DAY WITH 60MG Rx Instructions: TAKES IN ADDITION TO A 60 MG CAP FOR A TOTAL OF 90 MG PO DAILY trazodone 100 mg tablet 200 mg PO HS Label Comments: TAKE 2 TABLETS BY MOUTH EVERY NIGHT albuterol sulfate [Ventolin HFA] 90 mcg/actuation Hfa Aerosol Inhaler 2 puff inhalation Q4H PRN PRNQty: 0 0RF esomeprazole magnesium [Nexium] 40 mg Capsule,Delayed Release(Dr/Ec) 40 mg PO DAILY@0730 Qty: 0 0RF baclofen 10 mg tablet 5 mg PO TID Qty: 0 0RF Label Comments: TAKE ONE TABLET BY MOUTH TWICE A DAY AT LEAST 8 HOURS APART FOR MUSCLE SPASMS IF NEEDED Rx Instructions: 10 MG PO BID AT LEAST 8 HOURS APART diazepam 2 mg Tablet 2 mg PO TID PRN PRNQty: 6 0RF potassium chloride 20 MEQ tablet,ER particles/crystals 20 meq PO TID Rx Instructions: 20 MG PO TID DIRECTED fluticasone propionate 50 mcg/actuation spray,suspension 0 spray INTRANASAL BID Label Comments: SPRAY ONE SPRAY IN EACH NOSTRIL TWICE A DAY Rx Instructions: ONE SPRAY EACH NOSTRIL BID lidocaine [Lidoderm] 1 PATCH patch 1 patch Topical Q24H Qty: 4 0RF Discontinued hydrocodone-acetaminophen 5-325 mg Tablet 1 - 2 tab PO Q4H PRN PRN (Reason: Analgesia) Qty: 12 0RF cephalexin 500 mg tablet 500 mg PO TID Qty: 8 0RF Discharge Instructions Instructions: Fall Prevention for Older Adults (DC), Muscle Spasm (ED), Procedures for Compression Fractures of the Spine (DC) Additional Instructions: Follow up with your case filler. Stand Alone Forms: Nursing Discharge Form Referrals: Iesha Leary [Primary Care Provider] - (Please call [facility] [phone] for an appointment in the next 2 weeks ) Activity:: Activity as Tolerated Equipment/Supplies:: Walker Diet:: Low Sodium Discharge Orders Discharge Orders: Discharge Order (Routine); Ordered 05/04/22 Ordered By: Salome Louise Discharge Data Discharge Date/Time-TO BE ENTERED AT DEPARTURE: 05/04/22 17:46 DS: Summary Time Spent with Patient providing and/or coordinating discharge services: Greater than 30 minutes Status at Discharge Functional status at discharge: wheelchair bound Overall status at discharge: patient is back to baseline Mental Status: mental status grossly normal Speech and Movement: speech and movement normal Mood: congruent mood Affect: normal affect Exam Narrative Exam Narrative: General: Patient appears older than stated age, flattened affect HEENT: Normocephalic, coarsened facial features. Eyes with pupils equal and reactive light symmetrically, extraocular movement tact and sclera anicteric. Oropharynx with moist mucosa. Neck: Supple without JVD. Back: Kyphotic with decreased range of motion and loss of lumbar lordosis, no CVA tenderness, increased discomfort to palpation over the entire thoracic spine Lungs: Bronchovesicular breath sounds diffusely with no focalizing rales or rhonchi. Heart: Regular rate and rhythm with no appreciable murmur or gallop. Breast: Exam deferred. Abdomen: Normal contour, soft to palpation, no palpable hepatosplenomegaly. Bowel sounds positive in all quadrants. Genitalia/rectal: Exam deferred. Extremities: Without clubbing, cyanosis or pitting edema. Muscle atrophy over lower extremities. Skin: Pale color, warm and dry. Neuro: Cranial nerves II through XII grossly intact, no focal motor deficits. No tremor. Psych: Flattened affect with depressed mood with agitation especially with questioning. She gives short answers. No abnormal thought processes. Remote and recent memory grossly intact. Psych Mental Status: mental status grossly normal Speech and Movement: speech and movement normal Mood: congruent mood Affect: normal affect DS: Data Vitals/I&O Vitals and I&O: Vital Signs Temperature 37.1 C 05/04/22 15:42 Temperature Source Tympanic 05/04/22 15:42 Pulse 84 05/04/22 15:42 Pulse Rhythm Regular 05/04/22 08:00 Pulse 94 H 05/03/22 20:50 Respiratory Rate 18 05/04/22 15:42 Respiratory Effort Non-Labored 05/04/22 08:00 Respiratory Depth Normal 05/04/22 08:00 Respiratory Pattern Normal 05/04/22 08:00 Blood Pressure 125/75 05/04/22 15:42 Blood Pressure Mean 98 05/03/22 20:46 Pulse Oximetry 97 05/04/22 15:42 Oxygen Delivery Method Room Air 05/04/22 15:42 Oxygen Flow Rate 0 05/04/22 15:42 Pain Level 5 05/04/22 15:42 Comment 05/04/22 02:50 Intake & Output 05/03/22 05/04/22 05/04/22 23:59 11:59 23:59 Intake Total 1030 / 1030 200 / 440 240 / 440 Output Total 200 / 200 550 / 550 Balance 830 / 830 -350 / -110 240 / -110 Weight 74.6 kg Intake: IV 1030 / 1030 Oral 200 / 440 240 / 440 Output: Urine 200 / 200 550 / 550 Other: Urine Color Yellow Brown Green Urine Appearance Clear Clear Urine Odor Strong Strong Comment liquid stool; RN informed Stool Size Small Stool Characteristics Soft Formed Black Voiding Methods Bedside Commode Bedside Commode Incontinent Data Completed and Pending Labs on day of discharge: Labs from last 24 hours 05/04/22 05/04/22 05/03/22 05:49 05:49 21:11 WBC 4.96 RBC 3.05 L Hgb 10.7 L D Hct 30.6 L MCV 100 H MCH 35.1 H MCHC 35.0 RDW 12.7 Plt Count 234 MPV 9.9 Immature Gran % 0.2 Neutrophils % 56.7 Lymphocytes % 26.8 Monocytes % 12.3 Eosinophils % 3.6 Basophils % 0.4 Nucleated RBC % 0.0 Absolute Neutrophils 2.81 Absolute Lymphocytes 1.33 Absolute Monocytes 0.61 Absolute Eosinophils 0.18 Absolute Basophils 0.02 Sodium 136 Potassium 3.6 Chloride 101 Carbon Dioxide 28.7 Anion Gap 6.3 BUN 8 Creatinine 0.6 Est GFR (CKD-EPI 2020) 90.12 Glucose 94 Calcium 8.4 L Total Bilirubin 0.6 AST 23 ALT 14 Alkaline Phosphatase 100 Total Protein 5.8 L Albumin 2.6 L Urine Color Urine Clarity Urine pH Ur Specific [place] Urine Protein Urine Ketones Urine Blood Urine Nitrite Urine Bilirubin Urine Urobilinogen Ur Leukocyte Esterase Urine RBC Urine WBC Ur Epithelial Cells Urine Crystals Urine Bacteria Urine Mucus Urine Other Ur Culture Indicated? Urine Glucose COVID-19 Source Nasal/Nares SARS-CoV-2 (PCR) Negative 05/03/22 18:15 WBC RBC Hgb Hct MCV MCH MCHC RDW Plt Count MPV Immature Gran % Neutrophils % Lymphocytes % Monocytes % Eosinophils % Basophils % Nucleated RBC % Absolute Neutrophils Absolute Lymphocytes Absolute Monocytes Absolute Eosinophils Absolute Basophils Sodium Potassium Chloride Carbon Dioxide Anion Gap BUN Creatinine Est GFR (CKD-EPI 2020) Glucose Calcium Total Bilirubin AST ALT Alkaline Phosphatase Total Protein Albumin Urine Color Yellow Urine Clarity Clear Urine pH 7.0 Ur Specific [place] 1.020 Urine Protein Negative Urine Ketones 15 H Urine Blood Negative Urine Nitrite Negative Urine Bilirubin Negative Urine Urobilinogen 0.2 Ur Leukocyte Esterase Small H Urine RBC 0-2 Urine WBC 10-20 H Ur Epithelial Cells Many Urine Crystals Negative Urine Bacteria Few Urine Mucus Negative Urine Other Many Transitional Ur Culture Indicated? No/Sq. Contamination Urine Glucose Negative COVID-19 Source SARS-CoV-2 (PCR) PFSH All Active Problems (Updated 05/04/22 @ 13:04 by Xavier Hagen) Acute exacerbation of chronic low back pain (Acute) Palliative care encounter (Acute) Full code status (Acute) E. 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 fell down and could not get up Hypertension (Chronic) with labile blood pressure. Morbid obesity (Chronic) Allergic rhinitis (Chronic) Hyperlipidemia (Chronic) History of anemia (Chronic) Fibromyalgia (Chronic) DJD (degenerative joint disease) (Chronic) Chronic depression (Chronic) Insomnia (Chronic) Gastroesophageal reflux disease (Chronic) Hiatal hernia (Chronic) Irritable bowel syndrome (Chronic) History of surgery (Chronic) a. S/P open right ankle fracture/dislocation. b. Left knee arthroscopy. c. Right wrist fracture repair. d. T/A as a child. Dehydration, mild (Acute 09/22/14) Housing or economic circumstance (Chronic 09/22/14) a. No heat for 1-1/2 days H/O fall (Chronic) Anemia (Chronic) Person living alone (Chronic 09/22/14) Alcohol withdrawal delirium (Acute 09/22/14) Rhabdomyolysis (Acute 09/22/14) Alcohol dependence (Chronic) Ataxia (Chronic) COPD (chronic obstructive pulmonary disease) (Chronic) Onychomycosis (Chronic) Depression (Chronic) Medical History Alcohol abuse Allergic rhinitis Anemia Depression DJD (degenerative joint disease) Fibromyalgia GERD (gastroesophageal reflux disease) Hiatal hernia Hypercholesterolemia Hyperlipidemia Hypertension IBS (irritable bowel syndrome) Insomnia Surgical History Arthroplasty of knee left Colonoscopy - MAC (11/18/16) ORIF right ankle Repair fracture right wrist Tonsillectomy and adenoidectomy Social History Smoking/Tobacco Use Status: Former Tobacco Use Smoking risk assessment performed?: Yes Alcohol Intake: current Alcohol Intake frequency: 0-2 drinks per day Alcohol type: wine Details: 1/2 bottle of wine/day Drug use: Daily Substance use type: does not use and marijuana Details: two tokes for sleep Do you feel safe at home: Yes Do you feel safe in your relationship?: Yes Additional Social history: Lives alone in home in [place], has a cat. One sister in [place]
--- NOTE | 2022-05-04 17:31 | PT.INNT ---
Date of service: 05/04/22 Time of Service: 14:30 PT Notes Visit Reasons: Compression Fracture Thoracic Spine Patient verbalized that her pain level got worse after PT session this morning. She states that if she is able to walk she might get sent home so she declined to work with this provider this afternoon. It was explained to the patient that the gentle technique provided on tight muscle in her mid back was designed to relax her muscle which made her verbalize after session that intervention felt good. It was also clarified with patient that this provider stayed a while after the session to ensure that she was comfortably seated on the chair and that her lunch was properly set up for her without any new complaints from patient about her pain worsening. ENGINE LATHE SET UP OPERATOR Salome and Nurse Luciana were updated about the matter right away. No services were provided for this session. TREATMENT CODE/TIME: 14:30-14:40 PM. No charge. Thank you for the opportunity to participate in the care of this patient. Kelsey Skelton PT, DPT, CLT [facility] [place], [place]
--- NOTE | 2022-05-04 19:19 | CMDISCH_ITS ---
- If Service Date Differs Date of service: 05/04/22 Time of Service: 19:19 LACE Index Scoring Tool - Questions: Length of Stay (in days): 1 Acuity (Admit via E.D.?): Yes Comorbidities: Chronic Pulmonary Disease E.D. Visits: 2 - Answers: Total Score: 8 Risk of Readmission: Low Risk Care Management Discharge Reason for Hospitalization: Compression fracture thoracic spine Discharge Plan: Elvi will return home today with a resumption of her moderate needs supports. FEDERICO called her community engagement leader to advocate for increased services for homemaking. Elvi was offered home health support, but she declined, as she feels that she is able to care for herself at home, and enjoys getting out to her outpatient PT appointments. CM coordinated her RCT ride home via private vehicle. She will follow up with her PCP and discharge plan of care. Patient/Family Education Needs: Review discharge instructions and limitations, discussion of self care needs including ask me three. Services Needed at Discharge: Transportation (RCT)
--- NOTE | 2022-05-05 18:00 | PT.INDS ---
Date of service: 05/05/22 Time of Service: 11:32 PT Notes Visit Reasons: Compression Fracture Thoracic Spine Physical Therapy Inpatient Discharge Summary Date: 05/05/2022 Dates of Service: 05/04/2022 only This is a clinical summary of care provided for the duration of dates listed above. No charge was made in the completion of this documentation. Referring Doctor:? Xavier Freire MD PT Orders: PT CONSULT: Limited ability Precautions: Fall. Standard. Activity as tolerated. Patient Profile/Admitting Diagnosis:? Elvi is an 81-year-old female patient who with osteoporosis and fibromyalgia who presented to the ED on 05/04/2022 due to a mechanical fall on 05/03/2022.? She reportedly spent the night on the floor before ED admission. ? Patient is diagnosed with mechanical fall, acute on chronic back pain, compression fracture, and chronic pain disorder.? Thoracolumbar CT scan findings below did not show any new abnormality nor changes from CT scan. TLS CT scan FINDINGS from 03/19/2022 ?Multilevel vertebral body compression fractures and bone demineralization most consistent with osteoporosis. ?T8 and T12 compression fractures with vertebra plana or deformities. T6 and T7 compression fractures with approximately 50% vertebral body height loss. ?Similar mild anterolisthesis of T1 on T2. ?No definite acute fracture or malalignment. ?Moderate multilevel degenerative change including disc space narrowing,, endplate sclerosis, marginal spurring and facet arthropathy. ?No significant soft tissue abnormality. TLS CT scan FINDINGS from 05/03/2022 ?Bones appear demineralized ?Alignment is essentially anatomic. ?Vertebral body heights are preserved. ?No acute fracture or malalignment. ?No aggressive bone lesion. ?Moderate multilevel degenerative change including disc space narrowing, marginal spurring and facet arthropathy. ?Tortuous atheromatous abdominal aorta. Addendum created by Cyndy Love DO on 05/03/2022 7:14:33 PM EDT: Addendum, 05/02/2022: ?Multilevel vertebral body compression fractures and bone demineralization most consistent with osteoporosis. ?T8 and T12 vertebra plana and T6 and T7 fractures with approximately 50% vertebral body height loss, UNCHANGED since March 19, 2022. ?Multilevel degenerative changes. ?If persistent clinical concern, advise low threshold for on MRI. PMHX: All Active Problems?(Updated 05/04/22 @ 13:04 by Xavier Hagen) Acute exacerbation of chronic low back pain (Acute) Palliative care encounter (Acute) Full code status (Acute) E. 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 fell down and could not get upHypertension (Chronic) with labile blood pressure.Morbid obesity (Chronic) Allergic rhinitis (Chronic) Hyperlipidemia (Chronic) History of anemia (Chronic) Fibromyalgia (Chronic) DJD (degenerative joint disease) (Chronic) Chronic depression (Chronic) Insomnia (Chronic) Gastroesophageal reflux disease (Chronic) Hiatal hernia (Chronic) Irritable bowel syndrome (Chronic) History of surgery (Chronic) a. S/P open right ankle fracture/dislocation. b. Left knee arthroscopy. c. Right wrist fracture repair. d. T/A as a child.Dehydration, mild (Acute 09/22/14) Housing or economic circumstance (Chronic 09/22/14) a.? No heat for 1-1/2 daysH/O fall (Chronic) Anemia (Chronic) Person living alone (Chronic 09/22/14) Alcohol withdrawal delirium (Acute 09/22/14) Rhabdomyolysis (Acute 09/22/14) Alcohol dependence (Chronic) Ataxia (Chronic) COPD (chronic obstructive pulmonary disease) (Chronic) Onychomycosis (Chronic) Depression (Chronic) Medical History? Alcohol abuse Allergic rhinitis Anemia Depression DJD (degenerative joint disease) Fibromyalgia GERD (gastroesophageal reflux disease) Hiatal hernia Hypercholesterolemia Hyperlipidemia Hypertension IBS (irritable bowel syndrome) Insomnia Surgical History? Arthroplasty of knee left Colonoscopy - MAC (11/18/16) ORIF right ankle Repair fracture right wrist Tonsillectomy and adenoidectomy Social History/Home Situation: Patient lives alone in single level dwelling with ramp for entry.? Patient's baseline function mobility is with use of Rollator walker.? She uses her wheelchair inside her home.? Has been attending outpatient physical therapy at [facility] for aquatic therapy twice a week.? Chronic opioid use since 1994. Equipment Owned/DME: Wheelchair, Rollator walker, FWW, SPC Subjective:? NT. See most recent SAILING MASTER notes. Objective:?? General Observation: NT. See most recent SAILING MASTER notes. Mental Status: NT. See most recent SAILING MASTER notes. Pain: NT. See most recent SAILING MASTER notes. ROM: Lumbar spine: Unable to fully extend trunk due to pain.? Patient with trunk flexion at about 20 degrees from neutral.? Able to laterally bedn trunk to aboit 20 degrees to the R and 10 to the L.? Rotation limited to llimited to less than 10 degrees both sides. Right Upper Extremity: Glenohumeral joint flexion 90 degrees with significant shrug/scapular elevation secondary to chronic rotator cuff tear active assisted to 150 with min complaints of pain.? Elbow flexion extension within normal limits.? Wrist within normal limits, able to make full fist. Left Upper Extremity: Glenohumeral joint flexion and abduction 140 degrees, elbow flexion extension within normal limits, wrist active range of motion within normal limits.? Able to make a full fist. Right Lower Extremity: Hip within normal limits pain-free.? Patient is able to perform active hip flexion to 120 degrees without back pain.? Knee flexion and extension within normal limits. Left Lower Extremity: Hip range of motion active within normal limits pain-free.? Knee flexion 125 degrees, knee extension lacks 5 degrees (history of total knee replacement). Strength: Lumbar musculature: 3-/5 Right Upper Extremity: 3/5 shoulder flexion and abduction.? 4/5 bicep and tricep.? Wrist flexion and extension 4+/5.? Good title processor strength Left Upper Extremity: 4/5 shoulder flexion and abduction, 4/5 bicep and tricep.? Wrist extension and flexion 4+/5.? Good title processor. Right Lower Extremity: Hip flexors 4/5, quads 4/5, hamstrings 4 -/5, ankle dorsiflexion and plantarflexion 4/5. Left Lower Extremity: Hip flexors 4/5, quads 4/5, hamstrings 4 -/5, ankle dorsiflexion and plantarflexion 4/5. Sensation:? Patient reports intact sensation as to pain and light touch throughout bilateral lower extremities. Bed Mobility/Transfers: Supine? L sidelying: independent L sidelying to sit: independent Sit to stand: supervision Stand to sit: supervision Bed to chair supervision Gait:? Patient ambulated 20 feet with stand by assist with use of front-wheeled walker with trunk in a slightly bent position.? Ileana decreased.? No report of spasms nor increase in pain in low back.? No loss of balance.? Balance:? Static Sitting: Good Dynamic Sitting: Good Static Standing: ? Fair Dynamic Standing: Fair Special Tests: Mobility Limitations Standardized Measure [facility] 6 clicks Basic Mobility Inpatient Short Form: Raw Score: 21 ? CMS Score: 21% ? ? SLR: No lateralization of pain in R and L Palpation: TTP to R low thoracic and upper lumbar paraspinals. Manual therapy: Downregulation technique over tender and tight R paraspinals in the lower thoracic and upper lumbar region for 2-3 minutes with good response from patient who verbalized that she felt good after short session. Informed Consent/Education:? Patient instructed in purpose of PT consult and plan of care. Assessment:?? Elvi is an 81-year-old female patient who with osteoporosis and fibromyalgia who presented to the ED on 05/04/2022 due to a mechanical fall on 05/03/2022.? She reportedly spent the night on the floor before ED admission. Patient is diagnosed with mechanical fall, acute on chronic back pain, compression fracture, and chronic pain disorder.? Thoracolumbar CT scan findings below did not show any new abnormality nor changes from CT scan. Patient presents with clinical signs and symptoms consistent with current/admitting diagnoses that have resulted to mobility limitations, gait instability, generalized weakness, and overall ADL decline as demonstrated by the following impairment level findings: 1.? Decreased strength to lumbar musculature, B UE/LE major muscle groups as before 2.? Impaired sstanding balance 3.? Impaired activity tolerance 4.? Limitation of joint range of motion in thoracolumbar spine and B shoulders, B LE (chronic) 5.? Pain at 4-5/10 in TLS Impairments are contributing to the following functional limitations: 1.? Decline in bed mobility skills 2.? Decline in transfer skills 3.? Difficulty with ambulation without assistive device 4.? Increased completion time for mobility ADL performance 5.? Increased risk for falls Patient is assessed as a [id number] moderate complexity based on the following: History: 81-year-old female with past medical history as indicated above Examination: Demonstrable impairment in strength, balance, and mobility level with underlying impairments and functional limitations as exhibited above as well as deficit score of 29% utilizing the [facility] Mobility Inpatient Short Form Presentation: Evolving Decision Makin moderate complexity Goals: Goals X1 week 1. Supine-Sit: Independent NOT MET 2. Sit-Supine: Independent NOT MET 3. Sit-Stand: Independent with? front-wheeled walker NOT MET 4. Stand-Sit: Independent NOT MET 5. Bed-Chair: Independent with front-wheeled walker NOT MET 6. Chair-Bed: Independent front-wheeled walker NOT MET 7. Gait: Independent? for 100 feet with front-wheeled walker NOT MET DISCHARGE RECOMMENDATIONS:? [] ? Home with no services [] [] ? Home with services [specify] [] ? Home with outpatient PT [] [] ? SNF for continued rehabilitation [] [] ? Intermediate Care [] [] ? SNF versus LTC based on ability to participate and progress [] [X] SNF vs. PT/OT/Home health aide services.? Patient lives alone and does not feel safe going home due to her continued back symptoms.? However she is able to walk short distances and is able to mobilize using her wheelchair per baseline.? She will require help with housechores,? grocery shopping, and transportaion to and from MD appointments. TREATMENT CODE/TIME: LUIS Thank you for the opportunity to participate in the care of this patient. Kelsey Skelton PT, DPT, CLT [facility] [place], [place]
== END 2022-05-04 17:46 | disposition home or self-care (01) ==
LOC: ER 20:14 → MS 21:18
PROVIDERS: Registered Nurse Emergency; Admitting Provider Family Medicine; Emergency Provider Nurse Practitioner Family; PCP Family Medicine; Visit Provider Family Medicine
DX: G89.11 Acute pain due to trauma (principal); M54.50 Low back pain, unspecified; M48.54XD Collapsed vertebra, not elsewhere classified, thoracic region, subsequent encounter for fracture with routine healing; Z79.891 Long term (current) use of opiate analgesic; M79.7 Fibromyalgia; M17.12 Unilateral primary osteoarthritis, left knee; W19.XXXA Unspecified fall, initial encounter; I10 Essential (primary) hypertension; E78.5 Hyperlipidemia, unspecified; F32.9 Major depressive disorder, single episode, unspecified; K21.9 Gastro-esophageal reflux disease without esophagitis; G47.00 Insomnia, unspecified; K58.9 Irritable bowel syndrome, unspecified; K44.9 Diaphragmatic hernia without obstruction or gangrene; J44.9 Chronic obstructive pulmonary disease, unspecified; E78.00 Pure hypercholesterolemia, unspecified; Z79.899 Other long term (current) drug therapy; Z20.822 Contact with and (suspected) exposure to COVID-19
CPT/HCPCS: 36415; 80053; 82550; 87635; 96361; 96372; 96374; 97162; 99285; 72128; 72131; 81003; 81015; 83735; 85025; 99217; 99220; G0378; J1170; J1644; J1885; J2405; J3490

== ENCOUNTER 2023-07-25 16:32 | Inpatient (IN) | payer MEDICARE, MEDICAID, SELFPAY ==
[2023-07-25] VITALS (11 sets, daily range): BP systolic 127–177; BP diastolic 62–104; PULSE 86–100; RESP 16–41; TEMP 36.5–36.9; O2SAT 63–99
--- NOTE | 2023-07-25 16:30 | DI.CT_ITS ---
Exam(s) CT CHEST/ABD/PEL WO EXAM: CT CHEST/ABD/PEL WO CLINICAL HISTORY: fall, pain in right hip, sob after fall. TECHNIQUE: Imaging Protocol: Axial computed tomography images with coronal and sagittal reformatted images were created and reviewed CONTRAST MATERIAL: Intravenous: none Oral: None COMPARISON: CT CT CHEST WO from 07/02/[address] LUMBAR SPINE RECONS from 09/19/2020 FINDINGS: CHEST: LUNGS: Chronic interstitial disease again noted, right more so than left, unchanged. However, there are now patchy ground-glass infiltrates in both lung meredith origin. There are no pleural effusions n o significant focal findings in the trachea and mainstem bronchi.. MEDIASTINUM: No sternal fracture or mediastinal hematoma evident no new hilar nor mediastinal adenopa thy. CARDIAC: Heart size is normal. There is no pericardial effusion.Large retrocardiac hiatal hernia is again noted. Caliber of the thoracic aorta is upper normal. OSSEOUS: There is a T12 compression fracture approximately 70-80 percent which was not evident on CT scan of June 2020. Other compression fractures above this level were previously present includin g T7 and T8.. ABDOMEN: There are acute displaced there is adjacent hematoma in the space of Retzius. No other pelvic nor hi p fractures identified. No obvious sacral fractures. No diastasis of the SI joints. No lumbar spine facet malalignment. Mu ltilevel chronic disc space narrowing throughout the lumbar spine but no new lumbar vertebral fractur es, with the lowest fracture being T12. LIVER: No liver laceration evident on this non infused study. GALLBLADDER/BILIARY: No obvious gallbladder pathology. CBD is not dilated. PANCREAS: No evidence of obvious pancreatic mass nor dilatation of the pancreatic duct. SPLEEN: Spleen size normal. No left none. No trace. ADRENALS: There are no significant adrenal masses. KIDNEYS: No kidney laceration or subcapsular hematomas. Small cyst in the medial cortex left kidney which does not require follow-up. No solid renal masses. No calculi. No hydronephrosis. No hydro ureter. ABDOMINAL AORTA: Abdominal aorta is not enlarged. LYMPH NODES: There is no retroperitoneal nor para-aortic adenopathy. ABDOMINAL WALL/GI: No evidence of significant anterior abdominal wall nor inguinal hernia. No evidence of bowel obstruction. PELVIS: LYMPH NODES: There is no intrapelvic nor inguinal adenopathy. GI: No evidence of appendicitis.No evidence of sigmoid diverticulitis. URINARY BLADDER: Hemorrhage adjacent to the bladder from the pelvic fractures which are predominantly left-sided REPRODUCTIVE: Uterus and adnexal regions unremarkable. OSSEOUS: Fractures of superior inferior pubic rami on the right side with some displacement adjacent hematoma. No left eva pelvic fractures. No hip fractures. IMPRESSION: 1. There are acute moderately displaced fractures of the anterior right hemipelvis involving superior and inferior pubic rami with surrounding hematoma in the para vesicular space of Retzius. 2. There isan acute compression fracture of T12 now evident. Nonacute compression fractures higher u p in the thoracic spine again noted 3. Patchy ground-glass infiltrates in both lung meredith superimposed upon chronic interstitial disease . No pleural effusions. Called by myself to ER physician. RADIATION DOSE DELIVERED: Total DLP DATA REPOSITORY: All CT scans at this facility are submitted to the National Radiology Data Registry (NRDR) Dose Index Registry (DIR) with the [employer] ([employer]). RADIATION OPTIMIZATION: All CT scans at this facility use at least one of these dose optimization te chniques: automated exposure control; mA and/or kV adjustment per patient size (includes targeted exa ms where dose is matched to clinical indication); or iterative reconstruction.
--- NOTE | 2023-07-25 16:30 | DI.RAD_ITS ---
Exam(s) XR FEMUR RT EXAM: XR FEMUR RT CLINICAL HISTORY: fall, right hip pain. TECHNIQUE: 2D digital imaging was performed. COMPARISON: No exams were available for comparison FINDINGS: 3 views No evidence of right hip nor femur fracture. Age-related osteopenia. Moderate degenerative changes in the right hip. IMPRESSION: No evidence of right femur nor right hip fracture. Fractures of the superior and inferior pubic rami on the right side are noted. DATA REPOSITORY: RADIATION DOSE DELIVERED:
--- NOTE | 2023-07-25 16:30 | DI.RAD_ITS ---
Exam(s) XR PELVIS AP EXAM: XR PELVIS AP CLINICAL HISTORY: fall, right hip pain. TECHNIQUE: 2D digital imaging was performed. COMPARISON: No exams were available for comparison FINDINGS: Single view. There are fractures of the right superior and inferior pubic rami with mild displacement. No diastas is of the symphysis pubis. No obvious hip fracture. No obvious sacral fracture. IMPRESSION: Pubic rami fractures on right side. No obvious hip fractures DATA REPOSITORY: RADIATION DOSE DELIVERED:
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
--- NOTE | 2023-07-25 16:45 | DI.CT_ITS ---
Exam(s) CT HEAD CERVICAL SPINE WO EXAM: CT HEAD CERVICAL SPINE WO CLINICAL HISTORY: fall ,hit right head. TECHNIQUE: Imaging Protocol: Axial computed tomography images with coronal and sagittal reformatted images were created and reviewed COMPARISON: CT HEAD WITHOUT CONTRAST from 12/06/[address] HEAD WO from 05/11/2020 FINDINGS: BRAIN: There are no skull fractures nor fluid in the visualized paranasal sinuses. There is no evidence of intracranial hemorrhage, mass effect, or shift of midline structures. There are no extra-axial fluid collections. The ventricles are not enlarged or shifted and there is no blo od within the ventricular system nor within the basal cisterns. Prominent symmetrical atrophy is again noted, unchanged. CERVICAL SPINE: There is no evidence of acute fracture nor listhesis. No significant prevertebral soft tissue swelli ng. Multilevel chronic advanced disc space narrowing throughout the entire cervical spine. Multilevel Alondra schka joint osteophytes. No facet joint malalignment. There is no significant facet joint malalignment. No significant osseous lesions evident. IMPRESSION: No acute intracranial findings on this noninfused CT scan of the brain.Symmetrical atrophy again note d. No evidence of cervical spine fracture, malalignment, nor acute compromise of the cervical spinal can al. Chronic degenerative changes Called by myself to ER. RADIATION DOSE DELIVERED: Total DLP DATA REPOSITORY: All CT scans at this facility are submitted to the National Radiology Data Registry (NRDR) Dose Index Registry (DIR) with the [employer] (A[employer]). RADIATION OPTIMIZATION: All CT scans at this facility use at least one of these dose optimization te chniques: automated exposure control; mA and/or kV adjustment per patient size (includes targeted exa ms where dose is matched to clinical indication); or iterative reconstruction.
[2023-07-25] MEDS: ACETAMINOPHEN 1,000 MG/100 ML BTL 400 MG IVPB (17:04)
[2023-07-25 17:11] LABS: Abs Immature Grans 0.12 10^3/uL (0.0-0.06); Absolute Basophil Count 0.04 10^3/uL (0.0-0.2); Absolute Eosinophil Count 0.22 10^3/uL (0.0-0.7); Absolute Lymphocyte Count 1.53 10^3/uL (1.2-3.4); Absolute Monocyte Count 0.64 10^3/uL (0.1-0.8); Absolute Neutrophil Count 4.02 10^3/uL (1.2-6.7); Basophils % 0.6; Eosinophils % 3.3; HCT 37.8 % (36.0-46.0); HGB 12.3 g/dL (11.2-15.7); Immature Grans % 1.8; Lymphocytes % 23.3; MCH 33.1 pg (27.0-33.0); MCHC 32.5 % (32.0-36.0); MCV 102 fL (80-95); Monocytes % 9.7; Neutrophils % 61.3; Platelet Count 277 10^3/uL (130-400); RBC 3.72 10^6/uL (3.93-5.22); RDW 12.7 % (11.7-14.6); RDW-SD 47.8 fL; WBC 6.57 10^3/uL (4.4-10.8)
[2023-07-25 17:25] LABS: INR 1.1 (0.9-1.1); PTT Activated 32.3 sec (23.6-32.8); Prothrombin Time 10.9 sec (9.1-11.1)
[2023-07-25 17:27] LABS: ALT 25 U/L (14-59); AST 29 U/L (15-37); Albumin 2.7 g/dL (3.4-5.0); Alkaline Phosphatase 144 U/L (46-116); Anion Gap 10.6 mmol/L (3-11); BUN 10 mg/dL (7-18); Bilirubin, Total 0.2 mg/dL (0.2-1.0); CO2 26.4 mmol/L (21.0-32.0); CREATININE 0.7 mg/dL (0.55-1.02); Calcium 8.4 mg/dL (8.5-10.1); Chloride 98 mmol/L (98-107); Glucose 87 mg/dL (74-106); Potassium 4.1 mmol/L (3.5-5.1); Sodium 135 mmol/L (136-145); Total Protein 7.1 g/dL (6.4-8.2)
[2023-07-25] MEDS: ceFAZolin 2,000 MG in Normal Saline 100 ML 200 MG IVPB (17:51)
[2023-07-25] MEDS: DOXYCYCLINE 100 MG in Normal Saline 100 ML IVPB (18:53)
--- NOTE | 2023-07-25 21:28 | HPE_ITS ---
Date of service: 07/25/23 Time of Service: 21:28 Assessment and Plan Assessment and plan (1) Fractured pelvis: Status: Acute Assessment and plan: Currently she is not able to safely ambulate on trial in the ED. Will admit for observation and work with PT for a safe discharge plan. Use the prn hydrocodone/APAP prn she gets for chronic pain, titrate up if needed. (2) Community acquired pneumonia: Status: Acute Assessment and plan: She has mild symptoms, but she as initially hypoxic in the ED. She does have COPD on her list, though CT more c/w interstitial lung disease with possible superimposed pneumonia. Will treat with cephalosporin/doxy. (3) T12 compression fracture: Status: Acute Assessment and plan: Pain management as above. (4) Chronic pain disorder: Status: Chronic Assessment and plan: She is on chronic SNRI and opioids, continue (5) Alcohol dependence: Status: Chronic Assessment and plan: She is currently in early withdrawal. Lorazepam protocol for withdrawal. She is ambivalent about stopping alcohol but she knows it is a problem. Discussed medical therapies she could try once she is off alcohol. (6) Anemia: Status: Chronic Assessment and plan: Her anemia is normalized, still high MCV c/w EtOH. Check iron to see if we can stop he supplument, check B12/folate given ETOH. (7) Gastroesophageal reflux disease: Status: Chronic Assessment and plan: continue PPI (8) Menopausal disorder: Status: Acute Assessment and plan: She states she is still on estrogen/progesterone for night sweats. I only see medroxyprogesterone on her list. Risk of these medications is higher at her age, so I am holding for now. (9) Interstitial lung disease: Status: Acute Assessment and plan: Her list said COPD but her CT and PFTs from 2013 both c/w instertilal lung disease. No indication for steroids now. Consider pulmonology consult (10) Skin ulcer of lower leg: Status: Acute Assessment and plan: these are chronic, unclear etiology, wound consult to start. (11) DVT prophylaxis: Status: Acute Assessment and plan: enoxaparin (12) Discharge planning issues: Status: Acute Assessment and plan: Home after PT evaluation for safety, pending treatment needs for alcohol withdrawal. She has home health and may need additional services again short term. She also needs help with cat care. History of Present Illness History of Present Illness Chief Complaint: fall Narrative: 82 yo with alcohol use disorder, homebound living alone with chronic wheelchair use, COPD, and chronic pain on opioids who was brought to the emergency room today after she lost her balance and fell trying to answer a knock at the door. She states at around 3pm on the day of admission she was resting in her home, nodding off. She had locked the front door. A friend knocked and she got up to answer the door without using her wheelchair. She leaned forward to and missed a carrot buncher on the wall and fell on her right side and could not get up. She has pain in her right arm and pelvis. Her friend heard her fall and called 911. EMS had to break down the door to get to her. She did hit her forehead but denies LOC. She did not have dizziness, chest pain, or palpitations before or after the fall. She does say she was feeling more tired in the days before the fall. She had some cough with sputum but thought this was her allergies, no fever/chills. She drinks 1-2 bottle of wine a day and has for years. She gets shaky if she doesn't drink, no h/o seizures. She had about 1/2 bottle before coming in today, starting to feel shaky now. Review of Systems Constitutional Constitutional: Denies anorexia, Denies fever(s), Reports headache(s), Reports lethargy and Reports weight loss Eyes Eyes: Denies change in vision, Denies irritation and Denies loss of vision ENT Ears, Nose, Mouth, and Throat: Denies change in voice, Denies vertigo, Denies dizziness, Reports headache(s), Denies mouth lesions, Reports nasal congestion and Denies sore throat Cardiovascular Cardiovascular: Denies chest pain, Denies syncope, Denies palpitations, Reports dyspnea on exertion and Denies orthopnea Respiratory Respiratory: Reports as per HPI, Denies hemoptysis and Reports dyspnea on exertion Gastrointestinal Gastrointestinal: Denies abdominal pain, Denies melena, Denies hematochezia, Denies change in stool character, Denies constipation, Denies heartburn, Reports diarrhea (gets some chornic loose stools), Denies nausea and Denies vomiting Comments: feels fluttering in lowe abdomen Genitourinary Genitourinary: Denies hematuria, Denies dysuria and Denies urinary incontinence Integumentary/Breasts Skin/Breast: Denies rash and Reports skin ulcer (ankles, chronic non-healing) Neurologic Neurologic: Denies confusion, Denies vertigo, Denies dizziness, Denies syncope, Reports headache(s), Denies localized weakness, Denies loss of vision, Denies memory loss, Denies convulsions and Denies sensory deficit Psychiatric Psychiatric: Denies confusion, Reports depression, Denies memory loss, Denies mood swings, Denies visual hallucinations and Denies hallucinations Endocrine Endocrine: Denies palpitations Hematologic/Lymphatic Hematologic/Lymphatic: Denies easy bleeding PFSH All Active Problems (Updated 07/25/23 @ 22:17 by Audie Richmond) Skin ulcer of lower leg (Acute) Discharge planning issues (Acute) DVT prophylaxis (Acute) Interstitial lung disease (Acute) Laceration of arm, right, complicated (Acute) Fractured pelvis (Acute) Community acquired pneumonia (Acute) T12 compression fracture (Acute) Acute exacerbation of chronic low back pain (Acute) Full code status (Acute) E. 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 fell down and could not get up Hypertension (Chronic) with labile blood pressure. Morbid obesity (Chronic) Allergic rhinitis (Chronic) Hyperlipidemia (Chronic) History of anemia (Chronic) Fibromyalgia (Chronic) DJD (degenerative joint disease) (Chronic) Chronic depression (Chronic) Insomnia (Chronic) Gastroesophageal reflux disease (Chronic) Hiatal hernia (Chronic) Irritable bowel syndrome (Chronic) History of surgery (Chronic) a. S/P open right ankle fracture/dislocation. b. Left knee arthroscopy. c. Right wrist fracture repair. d. T/A as a child. Dehydration, mild (Acute 09/22/14) Housing or economic circumstance (Chronic 09/22/14) a. No heat for 1-1/2 days H/O fall (Chronic) Anemia (Chronic) Person living alone (Chronic 09/22/14) Alcohol withdrawal delirium (Acute 09/22/14) Rhabdomyolysis (Acute 09/22/14) Alcohol dependence (Chronic) Ataxia (Chronic) COPD (chronic obstructive pulmonary disease) (Chronic) Onychomycosis (Chronic) Depression (Chronic) Medical History Palliative care encounter Hiatal hernia IBS (irritable bowel syndrome) Hypertension Allergic rhinitis GERD (gastroesophageal reflux disease) DJD (degenerative joint disease) Hyperlipidemia Hypercholesterolemia Fibromyalgia Depression Anemia Alcohol abuse Insomnia Surgical History Tonsillectomy and adenoidectomy Repair fracture right wrist ORIF right ankle Colonoscopy - MAC (11/18/16) Arthroplasty of knee left Family History (Updated 07/25/23 @ 21:49 by Audie Richmond) Mother Dementia Maternal Aunt Diabetes Social History (Updated 07/25/23 @ 21:51 by Audie Richmond) Smoking/Tobacco Use Status: Former Tobacco Use Smoking risk assessment performed?: Yes Alcohol Intake: current Alcohol Intake frequency: 0-2 drinks per day Alcohol type: wine Counseling given: Yes Details: 1-2 bottle of wine/day Drug use: Daily Substance use type: does not use and marijuana Details: two tokes for sleep Housing: house Do you feel safe at home: Yes Do you feel safe in your relationship?: Yes Additional Social history: Lives alone in home in [facility], has a cat. States hasn't been out of house for a year. One sister in [place] Meds Allergies and Home Medications Allergies Allergy/AdvReac Type Severity Reaction Status Date / Time fentanyl AdvReac Verified 05/03/22 13:21 Home Medications Medication Instructions Recorded Confirmed Type cholecalciferol (vitamin D3) 10 800 unit PO DAILY 12/06/13 07/25/23 History mcg (400 unit) tablet (Vitamin D3) ferrous sulfate 325 mg (65 mg 325 mg PO TID 12/06/13 07/25/23 History iron) tablet glucosamine sulfate 2KCl 1,000 mg 500 mg PO BID 12/06/13 07/25/23 History tablet ascorbic acid (vitamin C) 1,000 mg 4,000 mg PO DAILY 03/22/14 07/25/23 History tablet duloxetine 60 mg capsule,delayed 60 mg PO DAILY 11/15/16 07/25/23 History release (Cymbalta) medroxyprogesterone 2.5 mg tablet 2.5 mg PO DAILY 11/18/16 07/25/23 History (Provera) potassium chloride 20 mEq 20 meq PO TID 11/25/16 07/25/23 History tablet,extended release(part/cryst) fluticasone propionate 50 0 spray intranasal BID 09/19/20 07/25/23 History mcg/actuation nasal spray,suspension lidocaine 5 % topical patch 1 patch topical Q24H #4 ea 09/19/20 07/25/23 Rx (Lidoderm) duloxetine 30 mg capsule,delayed 30 mg PO DAILY 03/19/22 07/25/23 History release hydrocodone 5 mg-acetaminophen 325 1 tab PO QID PRN PRN 03/19/22 07/25/23 History mg tablet quetiapine 50 mg tablet 50 mg PO QPM 03/19/22 07/25/23 History trazodone 100 mg tablet 200 mg PO HS 03/19/22 07/25/23 History albuterol sulfate 90 mcg/actuation 2 puff inhalation Q4H PRN PRN #0 03/22/22 07/25/23 Rx aerosol inhaler (Ventolin HFA) grams esomeprazole magnesium 40 mg 40 mg PO DAILY@0730 #0 caps 03/22/22 07/25/23 Rx capsule,delayed release (Nexium) Exam Narrative Exam Narrative: GEN: Alert and oriented x 3, pleasant and cooperative, gives linear history. Mild didffuse tremulousness, otherwise no acute distress at rest. HEENT: Head with 3cm pink linear patch right forehead. Conjunctiva clear, no icterus. PEERL, EOMI. no rhinorrhea. MMM, OP benign, edentulous. Neck is supple with no masses or lymphadenopathy, trachea midline LUNGS: CTAB with normal effort. no wheeze or rales CV: RRR with no murmurs, gallops, or rubs. ABD: +BS, soft, NT/ND EXT: no cyanosis, clubbing, or edema. not tender MSK: No joint redness or swelling. pain with movement of pelvis NEURO: CN 2-12 grossly intact. Normal movement of 4 extremities. Sensation and strength intact in rodriguez feet. Normal speech and coordination. Mild diffuse tremor with some rhythmic tounge movements. SKIN: No rashes. Bruising around sutured laceration right upper. Abrasion on forehead as above. 2-3cm dry ovular ulcerations left lateral lower leg, right ankle. HEALTH CARE CONSULTANT: External genitals inflamed with whitish exudates PSYCH: normal mood and affect Results Imaging Imaging Studies: CT C/A/P: 1. There are acute moderately displaced fractures of the anterior right hemipelvis involving superior and inferior pubic rami with surrounding hematoma in the para vesicular space of Retzius. 2. There isan acute compression fracture of T12 now evident. Nonacute compression fractures higher up in the thoracic spine again noted 3. Patchy ground-glass infiltrates in both lung meredith superimposed upon chronic interstitial disease. No pleural effusions. XR pelvis: Pubic rami fractures on right side. No obvious hip fractures XR Hip: No evidence of right femur nor right hip fracture. CT Head/Neck: No acute intracranial findings on this noninfused CT scan of the brain.Symmetrical atrophy again noted. No evidence of cervical spine fracture, malalignment, nor acute compromise of the cervical spinal canal. Chronic degenerative changes Labs 07/25/23 17:00 07/25/23 17:00 Labs: Laboratory Results - last 24 hr 07/25/23 17:00 WBC 6.57 RBC 3.72 L Hgb 12.3 Hct 37.8 MCV 102 H MCH 33.1 H MCHC 32.5 RDW 12.7 Plt Count 277 MPV 9.0 Immature Gran % 1.8 Neutrophils % 61.3 Lymphocytes % 23.3 Monocytes % 9.7 Eosinophils % 3.3 Basophils % 0.6 Nucleated RBC % 0.0 Absolute Neutrophils 4.02 Absolute Lymphocytes 1.53 Absolute Monocytes 0.64 Absolute Eosinophils 0.22 Absolute Basophils 0.04 PT 10.9 INR 1.1 APTT 32.3 Sodium 135 L Potassium 4.1 Chloride 98 Carbon Dioxide 26.4 Anion Gap 10.6 BUN 10 Creatinine 0.7 Est GFR (CKD-EPI 2020) 86.30 Glucose 87 Calcium 8.4 L Total Bilirubin 0.2 AST 29 ALT 25 Alkaline Phosphatase 144 H Total Protein 7.1 Albumin 2.7 L Last Vital Signs Temp 36.5 C 07/25/23 19:46 Pulse 100 H 07/25/23 19:46 Resp 18 07/25/23 19:46 BP 135/90 07/25/23 19:46 Pulse Ox 91 L 07/25/23 19:46 PAWSS Have you Been Recently Intoxicated or Drunk Within the Last 30 days?: No Have you Ever Experienced Previous Episodes of Alcohol Withdrawal?: No Have you ever Experienced Withdrawal Seizures?: No Have you ever Experienced Delirium Tremens(DT)s?: No Have you ever undergone Alcohol Rehabilitation Treatment (i.e, inpt ot outpatient treatment programs)?: No Have you ever Experienced Blackouts?: No Have you ever Combined Alcohol with other Downers within the last 90 days?: No Have you ever Combined Alcohol with any other Substance of Abuse during the last 90 days?: No Positive Blood Alcohol level on Presentation? [PCS.BAL]: No Evidence of Increased Autonomic Activity (i.e. HR>120, tremor, sweating, agitation, nausea)?: No Result: 0 Time Spent Time spent with Patient: 55-74 minutes Time was spent: preparing to see the patient(eg.review tests), obtaining and/or reviewing separately otained hiistory, ordering medications,tests, procedures, referring, communicating with other health summer child caregiver, indepentently interpreting results and counseling the patient
[2023-07-25] MEDS: traZODone 100 MG TAB 200 MG PO (21:38)
[2023-07-25] MEDS: Enoxaparin 40 MG/0.4 ML SYR SC (21:38)
[2023-07-25] MEDS: Normal Saline 1,000 ML 150 ML IV (21:38)
[2023-07-25] MEDS: QUEtiapine 50 MG TAB PO (21:38)
[2023-07-25] MEDS: HYDROcodone 5/Acetaminophen 325 TAB PO (21:38)
[2023-07-25] MEDS: LORazepam 1 MG TAB PO/SL (21:53)
[2023-07-25] MEDS: cefTRIAXone 2 GM/50 ML BAG IVPB (23:10)
[2023-07-26] MEDS: DOXYCYCLINE 100 MG in Normal Saline 100 ML IVPB ×2 (05:26→19:31)
[2023-07-26 07:11] VITALS: BP 144/82; PULSE 103; RESP 15; TEMP 37.6; O2SAT 99
[2023-07-26] MEDS: Cholecalciferol (Vitamin D3) 400 UNIT TAB 800 UNIT PO (07:47)
[2023-07-26] MEDS: Esomeprazole 40 MG CAPCR PO (07:48)
[2023-07-26] MEDS: DULoxetine 30 MG CAP 60 MG PO (07:48)
[2023-07-26] MEDS: Potassium Chloride 20 MEQ TABCR PO ×3 (07:49→21:09)
[2023-07-26] MEDS: DULoxetine 30 MG CAP PO (07:49)
[2023-07-26] MEDS: Thiamine 100 MG TAB PO (07:50)
[2023-07-26] MEDS: Multivitamin TAB 1 TAB PO (07:50)
[2023-07-26] MEDS: Folic Acid 1 MG TAB PO (07:50)
[2023-07-26 08:30] LABS: Iron 28 ug/dL (50-170); Total Iron Binding Capacity 85 ug/dL (250-450); Transferrin Sat 33 % (15-50)
[2023-07-26 09:07] LABS: Anion Gap 8.4 mmol/L (3-11); BUN 10 mg/dL (7-18); CO2 27.6 mmol/L (21.0-32.0); CREATININE 0.7 mg/dL (0.55-1.02); Calcium 8.2 mg/dL (8.5-10.1); Chloride 101 mmol/L (98-107); Glucose 98 mg/dL (74-106); Magnesium 1.9 mg/dL (1.8-2.4); Potassium 3.9 mmol/L (3.5-5.1); Sodium 137 mmol/L (136-145); Vitamin B12 566 pg/mL (193-986)
[2023-07-26 09:09] LABS: Folate > 20.0 ng/mL (8.6-20.0)
[2023-07-26] MEDS: HYDROcodone 5/Acetaminophen 325 TAB PO ×3 (10:00→19:30)
--- NOTE | 2023-07-26 10:25 | INITIAL_ITS ---
Date of service: 07/26/23 Time of Service: 10:26 Care Management Initial Assmt Initial Assessment REASON FOR HOSPITALIZATION:: Pelvic fracure, pneumonia PREVIOUS FUNCTIONAL STATUS/SOCIAL/FAMILY SUPPORTS:: Elvi lives alone in [facility]. She has no family locally but she remains in close contact with her sister, Marzena, who resides in [place], [place]. 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 Elvi does not drive but she cooks her own meals and is independent with her ADLs at baseline. CURRENT FUNCTIONAL STATUS:: Elvi was busy with her RN when CM attempted to meet with her. She was evaluated by PT today, who recommend SNF vs home with HH services, depending on her progress. She also met with Palliative care today, and stated that she prefers to return home with increased HH support. She currently has HH 3 hours per week, and she hires someone to help with groceries. CM will continue to follow. ADVANCE DIRECTIVES:: Marzena listed as HCA. Has patient been provided with info about the portal/API?: Yes Did the patient sign up for the portal?: No CODE STATUS:: Full Code INSURANCE COVERAGE / FINANCIAL ISSUES:: MCR. SERVANDO. CURRENT HOME/COMMUNITY SERVICES/EQUIPMENT:: HH services PRIMARY CARE PHYSICIAN:: Iesha Leary. POTENTIAL DISCHARGE NEEDS:: Evaluations for further needs, follow up appointments. PATIENT/FAMILY EDUCATION NEEDS:: Review discharge instructions and limitations, discussion of self care needs including ask me three. ANTICIPATED BARRIERS TO DISCHARGE:: None identified. TRANSPORTATION:: Via private vehicle by a friend vs RCT. PLAN:: Elvi will be evaluated by PT today which will help determine her discharge. Her transportation will likely be private vehicle via a friend vs RCT. She will follow up with her PCP and discharge plan of care. CM will continue to follow. PFSH All Active Problems (Updated 07/26/23 @ 16:46 by Hailey Collier NP) ACP (advance care planning) (Acute) Alcohol use disorder (Acute) Laceration of skin of right forearm (Acute) Skin ulcer of lower leg (Acute) Discharge planning issues (Acute) DVT prophylaxis (Acute) Interstitial lung disease (Acute) Laceration of arm, right, complicated (Acute) Fractured pelvis (Acute) Community acquired pneumonia (Acute) T12 compression fracture (Acute) Acute exacerbation of chronic low back pain (Acute) Full code status (Acute) E. 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 fell down and could not get up Hypertension (Chronic) with labile blood pressure. Morbid obesity (Chronic) Allergic rhinitis (Chronic) Hyperlipidemia (Chronic) History of anemia (Chronic) Fibromyalgia (Chronic) DJD (degenerative joint disease) (Chronic) Chronic depression (Chronic) Insomnia (Chronic) Gastroesophageal reflux disease (Chronic) Hiatal hernia (Chronic) Irritable bowel syndrome (Chronic) History of surgery (Chronic) a. S/P open right ankle fracture/dislocation. b. Left knee arthroscopy. c. Right wrist fracture repair. d. T/A as a child. Dehydration, mild (Acute 09/22/14) Housing or economic circumstance (Chronic 09/22/14) a. No heat for 1-1/2 days H/O fall (Chronic) Anemia (Chronic) Person living alone (Chronic 09/22/14) Alcohol withdrawal delirium (Acute 09/22/14) Rhabdomyolysis (Acute 09/22/14) Alcohol dependence (Chronic) Ataxia (Chronic) COPD (chronic obstructive pulmonary disease) (Chronic) Onychomycosis (Chronic) Depression (Chronic) Medical History Palliative care encounter Hiatal hernia IBS (irritable bowel syndrome) Hypertension Allergic rhinitis GERD (gastroesophageal reflux disease) DJD (degenerative joint disease) Hyperlipidemia Hypercholesterolemia Fibromyalgia Depression Anemia Alcohol abuse Insomnia Surgical History Tonsillectomy and adenoidectomy Repair fracture right wrist ORIF right ankle Colonoscopy - MAC (11/18/16) Arthroplasty of knee left Family History Mother Dementia Maternal Aunt Diabetes Social History Smoking/Tobacco Use Status: Former Tobacco Use Smoking risk assessment performed?: Yes Alcohol Intake: current Alcohol Intake frequency: 0-2 drinks per day Alcohol type: wine Counseling given: Yes Details: 1-2 bottle of wine/day Drug use: Daily Substance use type: does not use and marijuana Details: two tokes for sleep Housing: house Do you feel safe at home: Yes Do you feel safe in your relationship?: Yes Additional Social history: Lives alone in home in [facility], has a cat. States hasn't been out of house for a year. One sister in [place]
--- NOTE | 2023-07-26 10:37 | W.PM.PROGNOT ---
Date of Service Date of service: 07/26/23 Time of Service: 10:37 Assessment and Plan Assessment and plan (1) Fractured pelvis: Status: Acute Assessment and plan: PT in hospital and for a safe discharge plan Managing pain prior to PT. Uses PRN hydrocodone/APAP around the clock for years, scheduled now APAP scheduled as per safety re: age Adding scheduled Ketorolac if trial effective Might need PRN meds for breakthrough pain considering low dose PRN hydromorphone for 07/27 , if management ineffective Will continue to monitor (2) Community acquired pneumonia: Status: Acute Assessment and plan: No Oxygen requirement at this time, but she as initially hypoxic in the ED. She does have history of COPD on her list, but CT more c/w interstitial lung disease with possible superimposed pneumonia Continue ceftriaxone and doxycycline. Procal is negative today IS ordered Acapella ordered (3) T12 compression fracture: Status: Acute Assessment and plan: Pain management as above. (4) Chronic pain disorder: Status: Chronic Assessment and plan: She is on chronic SNRI and opioids takes her vicodin QID, continue Added short course of Ketoraolacx as patient could not move legs w/o grimavcing (5) Alcohol dependence: Status: Chronic Assessment and plan: She is currently in early withdrawal. Lorazepam protocol for withdrawal.CIWA at 2 As per prior provider the patient was ambivalent about stopping alcohol but she knew it is a problem. provider discussed medical therapies she could try once she is off alcohol. Oral thiamine ordered on admit (6) Anemia: Status: Chronic Assessment and plan: Her anemia is normalized, still high MCV c/w EtOH. Check iron to see if we can stop he supplument, check B12/folate given ETOH. MMA and homocytein ordered folate > 20 B12 > 500 (7) Gastroesophageal reflux disease: Status: Chronic Assessment and plan: No symptoms, will continue PPI (8) Menopausal disorder: Status: Acute Assessment and plan: Still holding as per prior provider assessment She states she is still on estrogen/progesterone for night sweats. I only see medroxyprogesterone on her list. Risk of these medications is higher at her age, so I am holding for now. (9) Interstitial lung disease: Status: Acute Assessment and plan: Her list said COPD but her CT and PFTs from 2012 both c/w instertilal lung disease. No indication for steroids now. Consider pulmonology consult IS Lucio (10) Skin ulcer of lower leg: Status: Acute Assessment and plan: these are chronic, unclear etiology, wound consult to start. (11) DVT prophylaxis: Status: Acute Assessment and plan: enoxaparin (12) Discharge planning issues: Status: Acute Assessment and plan: Home after PT evaluation for safety, pending treatment needs for alcohol withdrawal. She has home health and may need additional services again short term. She also needs help with cat care. 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 Serrano Subjective Subjective Patient reports: no new complaints, still having pain (Hx of fibromyalgia and took [place] QID, adding PRN NSAIDs and scheduling for 24-48 hours if effective, ), pain is less (This afternoon with scheduled pain meds), tolerating liquids well, tolerating a regular diet, voiding w/o difficulty, flatus, no bowel movement (Denies hx of constipation ) and afebrile; denies diarrhea, nausea, vomiting or shortness of breath (no cough) Exam Narrative Exam Narrative: Constitutional The patient is lying in bed uncomfortable and cooperative during the interview. The patient without acute distress except for pain with movement HENMT: Head is atraumatic except for left upper eyebrow bruise, normocephalic, no lymphadenopathy. Facial structures with normal appearance Eyes: Well aligned, intact ROM Neck: Normal ROM, no meningeal signs Neuro:alert and oriented to self, person, place, time and situation. No neurological focal deficit Chest:Chest is symmetrical and normal appearance Resp: Normal respiratory pattern, speaks in full sentences, unlabored breathing, clear lung bilaterally but decreased in right mid-lower lung meredith Cardio: regular rhythm, S1, S2, no murmur, capillary refill<3 sec., bilateral radial and dorsalis pedis pulses are positive GI: Abdomen is not distended, soft and non tender, bowel sounds are present : Negative Costovertebral angle tenderness, no bladder distension Back/spine/Pelvis: No back tenderness, normal alignment Integumentary: No skin lesions or rash Extremities: strength 5/5 to bilateral upper ext 4-3/5 to lower extremities d/t pain on pull push testing Psych: RASS 0, congruent mood and normal to anxious affect,concerns for pain relief.. Objective Last Vital Signs Temp 37.6 C H 07/26/23 07:11 Pulse 103 H 07/26/23 07:11 Resp 15 07/26/23 07:11 BP 144/82 H 07/26/23 07:11 Pulse Ox 99 07/26/23 07:11 Laboratory Results - last 24 hr 07/25/23 07/26/23 07/26/23 17:00 07:30 07:30 WBC 6.57 RBC 3.72 L Hgb 12.3 Hct 37.8 MCV 102 H MCH 33.1 H MCHC 32.5 RDW 12.7 Plt Count 277 MPV 9.0 Immature Gran % 1.8 Neutrophils % 61.3 Lymphocytes % 23.3 Monocytes % 9.7 Eosinophils % 3.3 Basophils % 0.6 Nucleated RBC % 0.0 Absolute Neutrophils 4.02 Absolute Lymphocytes 1.53 Absolute Monocytes 0.64 Absolute Eosinophils 0.22 Absolute Basophils 0.04 PT 10.9 INR 1.1 APTT 32.3 Sodium 135 L Cancelled 137 Potassium 4.1 Cancelled Chloride 98 Carbon Dioxide 26.4 Anion Gap 10.6 BUN 10 Creatinine 0.7 Est GFR (CKD-EPI 2020) 86.30 Glucose 87 Calcium 8.4 L Magnesium Iron TIBC Transferrin % Sat Total Bilirubin 0.2 AST 29 ALT 25 Alkaline Phosphatase 144 H Total Protein 7.1 Albumin 2.7 L Vitamin B12 Folate 07/26/23 07/26/23 07/26/23 07:30 07:30 07:30 WBC RBC Hgb Hct MCV MCH MCHC RDW Plt Count MPV Immature Gran % Neutrophils % Lymphocytes % Monocytes % Eosinophils % Basophils % Nucleated RBC % Absolute Neutrophils Absolute Lymphocytes Absolute Monocytes Absolute Eosinophils Absolute Basophils PT INR APTT Sodium Potassium 3.9 Chloride Cancelled 101 Carbon Dioxide Cancelled 27.6 Anion Gap Cancelled BUN Creatinine Est GFR (CKD-EPI 2020) Glucose Calcium Magnesium Iron TIBC Transferrin % Sat Total Bilirubin AST ALT Alkaline Phosphatase Total Protein Albumin Vitamin B12 Folate 07/26/23 07/26/23 07/26/23 07:30 07:30 07:30 WBC RBC Hgb Hct MCV MCH MCHC RDW Plt Count MPV Immature Gran % Neutrophils % Lymphocytes % Monocytes % Eosinophils % Basophils % Nucleated RBC % Absolute Neutrophils Absolute Lymphocytes Absolute Monocytes Absolute Eosinophils Absolute Basophils PT INR APTT Sodium Potassium Chloride Carbon Dioxide Anion Gap 8.4 BUN Cancelled 10 Creatinine Cancelled 0.7 Est GFR (CKD-EPI 2020) Cancelled Glucose Calcium Magnesium Iron TIBC Transferrin % Sat Total Bilirubin AST ALT Alkaline Phosphatase Total Protein Albumin Vitamin B12 Folate 07/26/23 07/26/23 07/26/23 07:30 07:30 07:30 WBC RBC Hgb Hct MCV MCH MCHC RDW Plt Count MPV Immature Gran % Neutrophils % Lymphocytes % Monocytes % Eosinophils % Basophils % Nucleated RBC % Absolute Neutrophils Absolute Lymphocytes Absolute Monocytes Absolute Eosinophils Absolute Basophils PT INR APTT Sodium Potassium Chloride Carbon Dioxide Anion Gap BUN Creatinine Est GFR (CKD-EPI 2020) 86.30 Glucose Cancelled 98 Calcium Cancelled 8.2 L Magnesium 1.9 Iron 28 L TIBC 85 L Transferrin % Sat 33 Total Bilirubin AST ALT Alkaline Phosphatase Total Protein Albumin Vitamin B12 566 Folate > 20.0 H PAWSS Have you Been Recently Intoxicated or Drunk Within the Last 30 days?: No Have you Ever Experienced Previous Episodes of Alcohol Withdrawal?: No Have you ever Experienced Withdrawal Seizures?: No Have you ever Experienced Delirium Tremens(DT)s?: No Have you ever undergone Alcohol Rehabilitation Treatment (i.e, inpt ot outpatient treatment programs)?: No Have you ever Experienced Blackouts?: No Have you ever Combined Alcohol with other Downers within the last 90 days?: No Have you ever Combined Alcohol with any other Substance of Abuse during the last 90 days?: No Positive Blood Alcohol level on Presentation? [PCS.BAL]: No Evidence of Increased Autonomic Activity (i.e. HR>120, tremor, sweating, agitation, nausea)?: No Result: 0 Time Spent with Patient Time Spent with Patient: >50 minutes Time was spent: preparing to see the patient(eg.review tests), ordering medications,tests, procedures, referring, communicating with other health youth career specialist, indepentently interpreting results, counseling the patient and care coordination
--- NOTE | 2023-07-26 11:14 | IN_ITS ---
PT Notes Visit Reasons: pelvic fracture, pneumonia Physical Therapy Inpatient Initial Evaluation Date: 07/26/2023 Referring Doctor: Audie Richmond MD PT Orders: PT CONSULT: Safety consult for D/C; Fall Safety Assessment. 82 yo F, lives alone, fall with pelvic fracture Precautions: Fall. Standard. WBAT on B LE with AD. Patient Profile/Admitting Diagnosis: Elvi is an 82-year-old female patient with osteoporosis and fibromyalgia who presented to the ED on 07/25/2022 due to a mechanical fall while getting out of bed to answer a friend knocking on her door. Patient was admitted same day for management of minimally displaced R superior and inferior pubic rami fractures, CAP, T12 compression fracture, chronic pain disorder, EtOH dependence, anemia, GERD, ILD, and skin ulcer of lower L and R legs. CT scan of pelvis on 07/25/2023 There are fractures of the right superior and inferior pubic rami with mild displacement. No diastasis of the symphysis pubis. No obvious hip fracture. No obvious sacral fracture. TLS CT scan FINDINGS from 03/19/2022 ?Multilevel vertebral body compression fractures and bone demineralization most consistent with osteoporosis. ?T8 and T12 compression fractures with vertebra plana or deformities. T6 and T7 compression fractures with approximately 50% vertebral body height loss. ?Similar mild anterolisthesis of T1 on T2. ?No definite acute fracture or malalignment. ?Moderate multilevel degenerative change including disc space narrowing, endplate sclerosis, marginal spurring and facet arthropathy. ?No significant soft tissue abnormality. TLS CT scan FINDINGS from 05/03/2022 ?Bones appear demineralized ?Alignment is essentially anatomic. ?Vertebral body heights are preserved. ?No acute fracture or malalignment. ?No aggressive bone lesion. ?Moderate multilevel degenerative change including disc space narrowing, marginal spurring and facet arthropathy. ?Tortuous atheromatous abdominal aorta. PMHX: All Active Problems (Updated 07/25/23 @ 22:17 by Audie Richmond) Skin ulcer of lower leg (Acute) Discharge planning issues (Acute) DVT prophylaxis (Acute) Interstitial lung disease (Acute) Laceration of arm, right, complicated (Acute) Fractured pelvis (Acute) Community acquired pneumonia (Acute) T12 compression fracture (Acute) Acute exacerbation of chronic low back pain (Acute) Full code status (Acute) E. 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 fell down and could not get up Hypertension (Chronic) with labile blood pressure. Morbid obesity (Chronic) Allergic rhinitis (Chronic) Hyperlipidemia (Chronic) History of anemia (Chronic) Fibromyalgia (Chronic) DJD (degenerative joint disease) (Chronic) Chronic depression (Chronic) Insomnia (Chronic) Gastroesophageal reflux disease (Chronic) Hiatal hernia (Chronic) Irritable bowel syndrome (Chronic) History of surgery (Chronic) a. S/P open right ankle fracture/dislocation. b. Left knee arthroscopy. c. Right wrist fracture repair. d. T/A as a child.Dehydration, mild (Acute 09/22/14) Housing or economic circumstance (Chronic 09/22/14) a. No heat for 1-1/2 days H/O fall (Chronic) Anemia (Chronic) Person living alone (Chronic 09/22/14) Alcohol withdrawal delirium (Acute 09/22/14) Rhabdomyolysis (Acute 09/22/14) Alcohol dependence (Chronic) Ataxia (Chronic) COPD (chronic obstructive pulmonary disease) (Chronic) Onychomycosis (Chronic) Depression (Chronic) Medical History Palliative care encounter Hiatal hernia IBS (irritable bowel syndrome) Hypertension Allergic rhinitis GERD (gastroesophageal reflux disease) DJD (degenerative joint disease) Hyperlipidemia Hypercholesterolemia Fibromyalgia Depression Anemia Alcohol abuse Insomnia Surgical History Tonsillectomy and adenoidectomy Repair fracture right wrist ORIF right ankle Colonoscopy - MAC (11/18/16) Arthroplasty of knee left Social History/Home Situation: Patient lives alone in single level dwelling with ramp to enter.? Patient's baseline function mobility is with use of FWW for all transfers.? Main mode of mobility indoors is with use of wheelchair due to her chronic pain syndrome and frequent falls. Rides RCT to go to MD appointmetns. Chronic opioid use since 1994. Equipment Owned/DME: Wheelchair, Rollator walker, FWW, SPC Subjective:? Moaned in pain during two attempts and stanidng up to transfer to bedside chair. Verbalizes 9-10/10 pain in R groin and hip area that prevents her from moving any further than standing. PT requested Nurse Rhoda to pre-medicate patient for pain about 45 minutes before PT session to increase chances of aient being able to participate in therapy. Patient was willing to try but could not move her legs to pivot to chair due to pain and increasing anxiety. Nurse Duong made aware of patient's responsee despite inatke of hydrocodone. Pain in back from chronic multilevel compression fractures complicating pain level. Objective:?? General Observation: Supine in bed. External female catheter in place. In NAD. O2 supp at 1 L/minute via NC. Ulceration in L crural area and R dorsum of foot Mental Status: Alert and oriented x 4 Pain: As above ? ROM: Lumbar spine: Unable to fully extend trunk due to pain. Patient with trunk flexion at about 20 degrees from neutral. Able to laterally bedn trunk to aboit 20 degrees to the R and 10 to the L. Rotation limited to llimited to less than 10 degrees both sides. Right Upper Extremity: Glenohumeral joint flexion 90 degrees with significant shrug/scapular elevation secondary to chronic rotator cuff tear active assisted to 150 with min complaints of pain.? Elbow flexion extension within normal limits.? Wrist within normal limits, able to make full fist. Left Upper Extremity: Glenohumeral joint flexion and abduction 140 degrees, elbow flexion extension within normal limits, wrist active range of motion within normal limits.? Able to make a full fist. Right Lower Extremity: Hip within normal limits pain-free.? Patient is able to perform active hip flexion to 120 degrees without back pain.? Knee flexion and extension within normal limits. Left Lower Extremity: Hip range of motion active within normal limits pain- free.? Knee flexion 125 degrees, knee extension lacks 5 degrees (history of total knee replacement). Strength: Lumbar musculature: 3-/5 Right Upper Extremity: 3/5 shoulder flexion and abduction.? 4/5 bicep and tricep.? Wrist flexion and extension 4+/5.? Good finished garment inspector strength Left Upper Extremity: 4/5 shoulder flexion and abduction, 4/5 bicep and tricep.? Wrist extension and flexion 4+/5.? Good finished garment inspector. Right Lower Extremity: Hip flexors 4/5, quads 4/5, hamstrings 4 -/5, ankle dorsiflexion and plantarflexion 4/5. Left Lower Extremity: Hip flexors 4/5, quads 4/5, hamstrings 4 -/5, ankle dorsiflexion and plantarflexion 4/5. Sensation:? Patient reports intact sensation as to pain and light touch throughout bilateral lower extremities. Bed Mobility/Transfers: Moderate verbal cueing provided for hand placement, movement sequence, and posture to minimize pain Supine to sit: moderate assist Sit to supine: moderate assist of 2 Sit to stand: moderate assist of 2 Stand to sit: moderate assist of 2 Bed to chair unable to test due to increased pain level and worseing anxiety Gait:? Unable to test due to pain level and worsening anxiety Balance:? Static Sitting: Good Dynamic Sitting: Good Static Standing: ? Poor Dynamic Standing: Unable to test Special Tests: Mobility Limitations Standardized Measure [facility]-PAC 6 clicks Basic Mobility Inpatient Short Form: Raw Score: 9 ? CMS Score: 81% ? ? Informed Consent/Education:? Patient instructed in purpose of PT consult and plan of care. ASSESSMENT:?? Pain level high despite pre-medication with hydrocodone half an hour before session. Pain level and anxiety limited ability to complete mobility assessment today. Patient will require services to regain modified independent transfer and short distance ambulation using FWW. Will continue to provide feedback to nurse and hospitalist regarding pain response from mobility performance to ensure that pain is better managed to achieve mobility goals. Patient presents with clinical signs and symptoms consistent with current/admitting diagnoses that have resulted to mobility limitations, gait instability, generalized weakness, and overall ADL decline as demonstrated by the following impairment level findings: 1. Decreased strength to lumbar musculature, B UE/LE major muscle groups as before 2. Impaired sstanding balance 3. Impaired activity tolerance 4. Limitation of joint range of motion in thoracolumbar spine and B shoulders, B LE (chronic) 5. Pain at 9-10/10 with weight bearing Impairments are contributing to the following functional limitations: 1. Decline in bed mobility skills 2. Decline in transfer skills 3. Difficulty with ambulation without assistive device 4. Increased completion time for mobility ADL performance 5. Increased risk for falls Patient is assessed as a 09197 moderate complexity based on the following: History: 82-year-old female with past medical history as indicated above Examination: Demonstrable impairment in strength, balance, and mobility level with underlying impairments and functional limitations as exhibited above as well as deficit score of 81% utilizing the [facility] Mobility Inpatient Short Form Presentation: Evolving Decision Makin moderate complexity Goals: Goals X1 week 1. Supine-Sit: Independent 2. Sit-Supine: Independent 3. Sit-Stand: Independent with front-wheeled walker 4. Stand-Sit: Independent with front-wheeled walker 5. Bed-Chair: Independent with front-wheeled walker 6. Chair-Bed: Independent front-wheeled walker 7. Gait: Independent for 100 feet with front-wheeled walker ? Plan of Care/Treatment Plan: 1-2x/day, 7 days/week x 1 week. Plan of care has been reviewed with the MANAGER PROCESS IMPROVEMENT providing the service under Physical Therapy direction. Initiate Physical Therapy intervention for strengthening, bed mobility, transfers, gait, stairs, balance training, use of assistive device.? DISCHARGE RECOMMENDATIONS:? [] Home with no services [] [] Home with services [specify] [] Home with outpatient PT [] [] SNF for continued rehabilitation [] [] Ancillary Services Manager Care [] [] SNF versus LTC based on ability to participate and progress [] [X] SNF vs. HH PT/OT/Home health aide services. She will require help with housechores, grocery shopping, and transportaion to and from MD appointments. TREATMENT CODE/TIME: 49564 x 36 minutes beginning at 10:30 AM. Thank you for the opportunity to participate in the care of this patient. Kelsey Skelton PT, DPT, CLT [facility] [place], [place]
[2023-07-26 11:45] LABS: Lab Add On Test DONE
--- NOTE | 2023-07-26 12:01 | PHA.REVIEW2 ---
Pharmacy Admission Review Admission Clinical Review Admission Pharmacy Review: (Updated 07/26/23 @ 10:51 by Fior Graves APRN) Laceration of skin of right forearm (Acute) Skin ulcer of lower leg (Acute) Discharge planning issues (Acute) DVT prophylaxis (Acute) Interstitial lung disease (Acute) Laceration of arm, right, complicated (Acute) Fractured pelvis (Acute) Community acquired pneumonia (Acute) T12 compression fracture (Acute) Menopausal disorder (Acute) fentanyl Adverse Reaction (Verified 05/03/22 13:21) Resuscitation Status Full Code Height 5 ft 8 in Weight 86.183 kg Pharmacy Admission Review Renal Dosing Renal Dosing: BUN 10 mg/dL (7-18) 07/26/23 07:30 BUN Cancelled 07/26/23 07:30 Creatinine 0.7 mg/dL (0.55-1.02) 07/26/23 07:30 Creatinine Cancelled 07/26/23 07:30 Medications needing adjustments: Reviewed (CrCl 49.86 mL/min) Anticoagulation Anticoagulation: Hgb 12.3 g/dL (11.2-15.7) 07/25/23 17:00 Hct 37.8 % (36.0-46.0) 07/25/23 17:00 Plt Count 277 10^3/uL (130-400) 07/25/23 17:00 INR 1.1 (0.9-1.1) 07/25/23 17:00 Creatinine 0.7 mg/dL (0.55-1.02) 07/26/23 07:30 Creatinine Cancelled 07/26/23 07:30 DVT Prophylaxis: Reviewed Medications: Enoxaparin (40mg q24h) Opiate Usage Evaluate Pain Scale/Pains Meds: Reviewed (Hydrocodone/APAP QID MARI) Scheduled Bowel Reg ordered if on Opiates?: No (Will mention to provider) Relevant Labs Relevant Labs: Sodium 137 mmol/L (136-145) 07/26/23 07:30 Sodium Cancelled 07/26/23 07:30 Potassium 3.9 mmol/L (3.5-5.1) 07/26/23 07:30 Potassium Cancelled 07/26/23 07:30 Chloride 101 mmol/L (98-107) 07/26/23 07:30 Chloride Cancelled 07/26/23 07:30 Magnesium 1.9 mg/dL (1.8-2.4) 07/26/23 07:30 Electrolytes, C-Reactive P, ESR: Reviewed (Iron 28, TIBC 85, folate > 20. Pending procalcitonin level. ) Cardiac Review BP, HR, EF%: Reviewed (BP 144/82, HR 103) QTc Review QTc: Reviewed (430 from 07/02/20, most recent EKG in patients profile) IV to PO Switch IV Medications: Reviewed Home Meds Home Med List reviewed: Reviewed Relevent Home Meds Not ordered & why?: Patient takes estradiol and medroxyprogesterone at home. These are on hold due to patients age and risk of medication (per H+P note 07/25/23). Current Meds Current Medication Order Review: Reviewed Pharmacy Antibiotic Review Pharmacy Antibiotic Activity: Reviewed, no change Comments: No pending cultures at this time. Is febrile (37.6 C) but WBC normal.
[2023-07-26 12:15] LABS: Procalcitonin < 0.1 ng/mL
[2023-07-26] MEDS: Acetaminophen 325 MG TAB PO ×2 (13:57→19:30)
[2023-07-26] MEDS: Fluticasone NASAL SPRAY 16 GM BTL NS ×2 (14:00→21:12)
[2023-07-26] MEDS: Ketorolac 15 MG/ML VIAL IVP ×2 (14:48→19:31)
[2023-07-26] MEDS: Normal Saline Flush 10 ML SYR IVP (14:49)
--- NOTE | 2023-07-26 15:01 | PCNE_ITS ---
Date of service: 07/26/23 Time of Service: 14:00 History of Present Illness Narrative: Ms. Boles is an 82 y/o F currently admitted to [facility] 2/2 PNA and pelvic fracture; PMHx sig for AUD, ILD, chronic pain 2/2 fibromyalgia Hospital course: presented to ED on 07/25 s/p fall; ED work up consistent for PNA, Eliv reports feeling increased weakness, cough for a few days prior, and pelvic fracture; admitted d/t inability to ambulate safely in trial in ED; noted to be in early alcohol withdrawal, on lorazepam per protocol; CIWA score as been 2 consistently x24 hours; wound consult placed d/t venous stasis ulcer per nursing: uncontrolled pain, just gave apap, has Toradol available, continues hydrocodone/apap 5/325mg now scheduled (was PRN at home, taking ATC) PT jasmeetal recommend SNF vs HH w/PT/OT/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 She denies burning, stinging, numbness, tingling, stabbing pain. She is eager to get out of bed and work on strengthening herself w/goal of returning home. She is aware PT is coming and is hopefully to continue working with them. Especially to help with her balance, something she is severely lacking. She reports 3 falls in the past 6 mos, requiring a lift assist each time. She continues to use O2, she is on RA at baseline, she reports her breathing does feel better today compared to presentation to ED. No sputum collection She does have home health coming in for 3 hours per week, and hires someone for extra help shopping. She is hoping to have more help from HH w/newer decline in ability to care for self. Elvi is aware of PT's recommendations for discharge for SNF vs Home w/services, her preferences today are to return home w/increased services, she is aware that she is not ready for this today. She has previously completed an Advanced Directive, she identifies her sister Marzena as her HCA, other person Meliza listed has . She is a full code. She would not want to be kept alive on life support. Assessment and Plan Assessment and plan (1) Laceration of skin of right forearm: Status: Acute Assessment and plan: non-tender, no swelling or drainage (2) Skin ulcer of lower leg: Status: Acute Assessment and plan: chronic wound care consulted HH following (3) Interstitial lung disease: Status: Acute Assessment and plan: considering pulmonology consult CT indicates ILD vs COPD (4) Fractured pelvis: Status: Acute Assessment and plan: PT today pain uncontrolled, Toradol added, [place] scheduled, been on same dose for years, consider increase based on tolerance and acute fracture pain limiting ability to participate in PT - agree w/plan to consider hydromorphone tomorrow if pain no better w/above plan (5) Community acquired pneumonia: Status: Acute Assessment and plan: NC in place, room air at baseline, titrate as tolerable continue ceftriaxone and doxycycline (6) T12 compression fracture: Status: Acute (7) Acute exacerbation of chronic low back pain: Status: Acute Assessment and plan: as above (8) Full code status: Status: Acute Assessment and plan: Elvi was considering changing to DNR at our visit, however would like to think about this more encouraged she bring up with provider if she changes her mind or would like to review some more - reviewed w/hospitalist she remains a full code at time of visit (9) Chronic pain disorder: Status: Chronic Assessment and plan: as above managed by PCP (10) Fall: Status: Acute Assessment and plan: continue PT will need services post discharge (11) Fibromyalgia: Status: Chronic Assessment and plan: as above managed by PCP (12) Person living alone: Status: Chronic Assessment and plan: needs safe discharge plan continue working w/PT (13) Palliative care encounter: Assessment and plan: PC continue to follow, today's visit largely to establish w/PC; PC will follow during inpatient later this week as needed, to continue conversations regarding code status (14) Alcohol use disorder: Status: Acute Assessment and plan: did not address today previously reported no plans for cessation (15) ACP (advance care planning): Status: Acute Assessment and plan: reviewed CODE status, LST, discharge plans/PT recommendations, POC; reviewed HCA and AD spent 22 mins w/ACP Review of Systems Narrative: as per HPI PFSH All Active Problems (Updated 07/26/23 @ 16:46 by Hailey Collier NP) ACP (advance care planning) (Acute) Alcohol use disorder (Acute) Laceration of skin of right forearm (Acute) Skin ulcer of lower leg (Acute) Discharge planning issues (Acute) DVT prophylaxis (Acute) Interstitial lung disease (Acute) Laceration of arm, right, complicated (Acute) Fractured pelvis (Acute) Community acquired pneumonia (Acute) T12 compression fracture (Acute) Acute exacerbation of chronic low back pain (Acute) Full code status (Acute) E. 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 fell down and could not get up Hypertension (Chronic) with labile blood pressure. Morbid obesity (Chronic) Allergic rhinitis (Chronic) Hyperlipidemia (Chronic) History of anemia (Chronic) Fibromyalgia (Chronic) DJD (degenerative joint disease) (Chronic) Chronic depression (Chronic) Insomnia (Chronic) Gastroesophageal reflux disease (Chronic) Hiatal hernia (Chronic) Irritable bowel syndrome (Chronic) History of surgery (Chronic) a. S/P open right ankle fracture/dislocation. b. Left knee arthroscopy. c. Right wrist fracture repair. d. T/A as a child. Dehydration, mild (Acute 09/22/14) Housing or economic circumstance (Chronic 09/22/14) a. No heat for 1-1/2 days H/O fall (Chronic) Anemia (Chronic) Person living alone (Chronic 09/22/14) Alcohol withdrawal delirium (Acute 09/22/14) Rhabdomyolysis (Acute 09/22/14) Alcohol dependence (Chronic) Ataxia (Chronic) COPD (chronic obstructive pulmonary disease) (Chronic) Onychomycosis (Chronic) Depression (Chronic) Medical History Palliative care encounter Hiatal hernia IBS (irritable bowel syndrome) Hypertension Allergic rhinitis GERD (gastroesophageal reflux disease) DJD (degenerative joint disease) Hyperlipidemia Hypercholesterolemia Fibromyalgia Depression Anemia Alcohol abuse Insomnia Surgical History Tonsillectomy and adenoidectomy Repair fracture right wrist ORIF right ankle Colonoscopy - MAC (11/18/16) Arthroplasty of knee left Family History Mother Dementia Maternal Aunt Diabetes Social History Smoking/Tobacco Use Status: Former Tobacco Use Smoking risk assessment performed?: Yes Alcohol Intake: current Alcohol Intake frequency: 0-2 drinks per day Alcohol type: wine Counseling given: Yes Details: 1-2 bottle of wine/day Drug use: Daily Substance use type: does not use and marijuana Details: two tokes for sleep Housing: house Do you feel safe at home: Yes Do you feel safe in your relationship?: Yes Additional Social history: Lives alone in home in [facility], has a cat. States hasn't been out of house for a year. One sister in [place] Exam Narrative Exam Narrative: General: older adult female, cooperative, fatigued HEENT: edentulous, normocephalic, atraumatic, hearing WNL Neck: supple, no masses Resp: even and unlabored, NC in place; speaks full sentences w/no SOB; no audible wheeze, no cough Skin: laceration on RUE arm, sutures in place, no bleeding, clean, dry, intact Psych: MS appropriate, speech clear, mood/affect WNL, thought process loose association/normal; insight/judgment fair Results Last Vital Signs Temp 99.7 F H 07/26/23 07:11 Pulse 103 H 07/26/23 07:11 Resp 15 07/26/23 07:11 BP 144/82 H 07/26/23 07:11 Pulse Ox 99 07/26/23 07:11 Labs 07/25/23 17:00 07/26/23 07:30 Labs: Laboratory Results - last 24 hr 07/25/23 07/26/23 07/26/23 17:00 07:30 07:30 WBC 6.57 RBC 3.72 L Hgb 12.3 Hct 37.8 MCV 102 H MCH 33.1 H MCHC 32.5 RDW 12.7 Plt Count 277 MPV 9.0 Immature Gran % 1.8 Neutrophils % 61.3 Lymphocytes % 23.3 Monocytes % 9.7 Eosinophils % 3.3 Basophils % 0.6 Nucleated RBC % 0.0 Absolute Neutrophils 4.02 Absolute Lymphocytes 1.53 Absolute Monocytes 0.64 Absolute Eosinophils 0.22 Absolute Basophils 0.04 PT 10.9 INR 1.1 APTT 32.3 Sodium 135 L Cancelled 137 Potassium 4.1 Cancelled Chloride 98 Carbon Dioxide 26.4 Anion Gap 10.6 BUN 10 Creatinine 0.7 Est GFR (CKD-EPI 2020) 86.30 Glucose 87 Calcium 8.4 L Magnesium Iron TIBC Transferrin % Sat Total Bilirubin 0.2 AST 29 ALT 25 Alkaline Phosphatase 144 H Total Protein 7.1 Albumin 2.7 L Vitamin B12 Folate Procalcitonin Add-On Test Request 07/26/23 07/26/23 07/26/23 07:30 07:30 07:30 WBC RBC Hgb Hct MCV MCH MCHC RDW Plt Count MPV Immature Gran % Neutrophils % Lymphocytes % Monocytes % Eosinophils % Basophils % Nucleated RBC % Absolute Neutrophils Absolute Lymphocytes Absolute Monocytes Absolute Eosinophils Absolute Basophils PT INR APTT Sodium Potassium 3.9 Chloride Cancelled 101 Carbon Dioxide Cancelled 27.6 Anion Gap Cancelled BUN Creatinine Est GFR (CKD-EPI 2020) Glucose Calcium Magnesium Iron TIBC Transferrin % Sat Total Bilirubin AST ALT Alkaline Phosphatase Total Protein Albumin Vitamin B12 Folate Procalcitonin Add-On Test Request 07/26/23 07/26/23 07/26/23 07:30 07:30 07:30 WBC RBC Hgb Hct MCV MCH MCHC RDW Plt Count MPV Immature Gran % Neutrophils % Lymphocytes % Monocytes % Eosinophils % Basophils % Nucleated RBC % Absolute Neutrophils Absolute Lymphocytes Absolute Monocytes Absolute Eosinophils Absolute Basophils PT INR APTT Sodium Potassium Chloride Carbon Dioxide Anion Gap 8.4 BUN Cancelled 10 Creatinine Cancelled 0.7 Est GFR (CKD-EPI 2020) Cancelled Glucose Calcium Magnesium Iron TIBC Transferrin % Sat Total Bilirubin AST ALT Alkaline Phosphatase Total Protein Albumin Vitamin B12 Folate Procalcitonin Add-On Test Request 07/26/23 07/26/23 07/26/23 07:30 07:30 07:30 WBC RBC Hgb Hct MCV MCH MCHC RDW Plt Count MPV Immature Gran % Neutrophils % Lymphocytes % Monocytes % Eosinophils % Basophils % Nucleated RBC % Absolute Neutrophils Absolute Lymphocytes Absolute Monocytes Absolute Eosinophils Absolute Basophils PT INR APTT Sodium Potassium Chloride Carbon Dioxide Anion Gap BUN Creatinine Est GFR (CKD-EPI 2020) 86.30 Glucose Cancelled 98 Calcium Cancelled 8.2 L Magnesium 1.9 Iron 28 L TIBC 85 L Transferrin % Sat 33 Total Bilirubin AST ALT Alkaline Phosphatase Total Protein Albumin Vitamin B12 566 Folate > 20.0 H Procalcitonin < 0.1 Add-On Test Request DONE
--- NOTE | 2023-07-26 15:44 | PT.INTREAT ---
Date of service: 07/26/23 Time of Service: 15:06 PT Notes Visit Reasons: pelvic fracture, pneumonia Inpatient Physical Therapy Treatment Note [facility] Date: 07/26/23 PRECAUTIONS: Fall, standard, activity as tolerated. SUBJECTIVE: Patient reports someone came it at 3 pm and put something in her IV and it seems to have really taken the edge off the pain. OBJECTIVE: Supine in bed. PureWick in place, IV access LUE. Agreeable to therapy. ? PAIN: Yes, minimal at rest but up to 7/10 or 8/10 with weightbearing. VITALS: monitored by nursing staff. Therapeutic Activities ([id number]): Direct one-on-one instruction in dynamic activities to improve functional performance. ? BED MOBILITY/TRANSFERS? Rolling L/R: not assessed Scooting L/R x2: modified independent with side rails and extended time, multiple rest breaks of a few seconds each. Supine-sit x2: Mod assist by handhold, acting as anchor for patient to pull against. Mod assist by draw sheet to aid patient turning to sit EOB.? Sit-supine x2: Min assist to lift right leg up over EOB ? Sit-stand x2: CGA at gait belt for safety with slightly elevated bed height, to FWW. Patient does not stand fully erect, instead jose over walker with forearms resting on handholds.? Stand-sit x2: CGA ? Bed-Chair: not assessed ? Chair-bed: not assessed Provided skilled cues and instruction on performance and technique throughout. ASSESSMENT:? Patient tolerates therapy well. Reports that she feels her performance now was better than her performance this am. PLAN: Continue global strengthening to patient tolerance per plan of care until patient is medically cleared for discharge. TREATMENT CODE/TIME: 24 minutes beginning at 15:06
--- NOTE | 2023-07-26 16:33 | CHAPLAIN ---
Elvi was resting in bed when I visited. She appeared to be in pain, and said her pain medicine regime had not yet been established enough to keep her pain free. She said she was told she won't likely need surgery. Elvi likes alone in [facility]. She's been in touch with one friend, but said others know she is here. I will continue to visit.
[2023-07-26 19:29] VITALS: BP 128/78; PULSE 81; RESP 18; TEMP 37.1; O2SAT 94
[2023-07-26] MEDS: LORazepam 1 MG TAB PO/SL (19:30)
[2023-07-26] MEDS: Normal Saline Flush 10 ML SYR IV (19:39)
[2023-07-26] MEDS: traZODone 100 MG TAB 200 MG PO (21:09)
[2023-07-26] MEDS: QUEtiapine 50 MG TAB PO (21:09)
[2023-07-26] MEDS: Enoxaparin 40 MG/0.4 ML SYR SC (21:10)
[2023-07-26] MEDS: cefTRIAXone 2 GM/50 ML BAG IVPB (21:10)
[2023-07-27] VITALS (8 sets, daily range): BP systolic 109–149; BP diastolic 60–85; PULSE 71–105; RESP 14–18; TEMP 36.5–38.1; O2SAT 1–98
--- NOTE | 2023-07-27 | DI.RAD_ITS ---
Exam(s) XR ANKLE RT 2V EXAM: XR ANKLE RT 2V CLINICAL HISTORY: question bone involvement with skin ulcer. TECHNIQUE: 2D digital imaging was performed. COMPARISON: CR XR ANKLE RT COMPLETE from 10/23/2018 CR XR FEMUR RT from 07/25/2023 FINDINGS: Two views. Again noted is ORIF hardware including lateral fixation plate across distal migration. No fracture. No evidence of osteomyelitis. 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 There is generalized non use osteopenia evident. A large in ferior calcaneal spur is again noted as is an enthesophyte on the posterior calcaneus Achilles insert ion site. There is also calcification evident within the Achilles tendon consistent with chronic ten dinitis. IMPRESSION: Stable appearance of above described hardware. Further progression of degenerative change in the tib iotalar-ankle joint when compared to 2019. No evidence of osteomyelitis. DATA REPOSITORY: RADIATION DOSE DELIVERED:
[2023-07-27] MEDS: Ketorolac 15 MG/ML VIAL IVP ×4 (01:12→20:51)
[2023-07-27] MEDS: DOXYCYCLINE 100 MG in Normal Saline 100 ML IVPB ×2 (05:24→17:09)
[2023-07-27 06:54] LABS: Abs Immature Grans 0.04 10^3/uL (0.0-0.06); Absolute Basophil Count 0.03 10^3/uL (0.0-0.2); Absolute Eosinophil Count 0.44 10^3/uL (0.0-0.7); Absolute Neutrophil Count 3.03 10^3/uL (1.2-6.7); Basophils % 0.6; Eosinophils % 9.3; HCT 33.2 % (36.0-46.0); HGB 10.9 g/dL (11.2-15.7); Immature Grans % 0.8; Lymphocytes % 16.9; MCH 33.7 pg (27.0-33.0); MCHC 32.8 % (32.0-36.0); MCV 103 fL (80-95); MPV 9.2 fL (8.0-11.0); Monocytes % 8.4; Platelet Count 218 10^3/uL (130-400); RBC 3.23 10^6/uL (3.93-5.22); RDW-SD 49.2 fL; WBC 4.74 10^3/uL (4.4-10.8)
[2023-07-27 07:04] LABS: Anion Gap 7.7 mmol/L (3-11); BUN 11 mg/dL (7-18); CO2 29.3 mmol/L (21.0-32.0); CREATININE 0.7 mg/dL (0.55-1.02); Calcium 8.7 mg/dL (8.5-10.1); Chloride 101 mmol/L (98-107); Glucose 97 mg/dL (74-106); Magnesium 2.2 mg/dL (1.8-2.4); Potassium 4.8 mmol/L (3.5-5.1); Sodium 138 mmol/L (136-145)
[2023-07-27] MEDS: Fluticasone NASAL SPRAY 16 GM BTL NS ×2 (08:12→20:02)
[2023-07-27] MEDS: DULoxetine 30 MG CAP 60 MG PO (08:13)
[2023-07-27] MEDS: DULoxetine 30 MG CAP PO (08:13)
[2023-07-27] MEDS: HYDROcodone 5/Acetaminophen 325 TAB PO ×4 (08:13→19:57)
[2023-07-27] MEDS: Multivitamin TAB 1 TAB PO (08:14)
[2023-07-27] MEDS: Folic Acid 1 MG TAB PO (08:14)
[2023-07-27] MEDS: Esomeprazole 40 MG CAPCR PO (08:14)
[2023-07-27] MEDS: Cholecalciferol (Vitamin D3) 400 UNIT TAB 800 UNIT PO (08:14)
[2023-07-27] MEDS: Potassium Chloride 20 MEQ TABCR PO ×3 (08:14→19:57)
[2023-07-27] MEDS: Thiamine 100 MG TAB PO (08:14)
[2023-07-27] MEDS: Normal Saline Flush 10 ML SYR IV ×2 (08:15→17:08)
[2023-07-27] MEDS: LORazepam 1 MG TAB PO/SL (08:35)
--- NOTE | 2023-07-27 08:38 | PGE_ITS ---
Date of Service Date of service: 07/27/23 Time of Service: 08:38 Assessment and Plan Assessment and plan (1) Fractured pelvis: Status: Acute Assessment and plan: Conitnue PT Ortho consult: with Dr. Martinez :Drew Martinez WBAT with walker or assist device. follow up outpatient 2-3 weeks. DVT PPX while immobile. Continue pain management: On chronic opiates, taking max allowed daily, scheduled her [place] and APAP scheduled to BID as per safety re: age Continue short course of Ketorolac until 07/29, seems effective PRN hydromorphone prior to PT. Will continue to monitor (2) Community acquired pneumonia: Status: Acute Assessment and plan: New Oxygen (2l/min) requirement and ground glass infiltrates bilt.on admisssion , BNP is only 322 today. the patient was initially hypoxic in the ED. She does have history of COPD on her list and denies CHF history, but CT more c/w interstitial lung disease with possible superimposed pneumonia Febrile overnight : Fluvid negative, RSV negaitve Continue ceftriaxone and doxycycline. Procal is negative, ESR 42, CRP 15.12 Contiue IS and Acapella OOB to chair as much as possible (3) T12 compression fracture: Status: Acute Assessment and plan: Continue pain management as above. (4) Chronic pain disorder: Status: Chronic Assessment and plan: She is on chronic SNRI and at home take PRN [place] QID since, might need added narcotics to manage acute pain, PRN ordered Continuing short course of Ketorolac until 07/29 HS and will reevaluate (5) Alcohol dependence: Status: Chronic Assessment and plan: CIWA at 5 today , PRN lorazepam received overnight Will continue ETOH w/d protocol As per prior provider the patient was ambivalent about stopping alcohol but she knew it is a problem. provider discussed medical therapies she could try once she is off alcohol. Oral thiamine ordered on admit (6) Anemia: Status: Chronic Assessment and plan: Her anemia is normalized, still high MCV c/w EtOH. TIBC 25, transferrin sat normal, Iron normal,, ordering ferritin to n to see if we can stop Fe supplement MMA and homocysteine ordered folate > 20, no replacement indicated B12 > 500, as an acute phase reactant, it would be beneficial to supplement with low dose B12 (7) Gastroesophageal reflux disease: Status: Chronic Assessment and plan: will continue PPI (8) Menopausal disorder: Status: Acute Assessment and plan: no night sweat reported Still holding as per prior provider assessment She states she is still on estrogen/progesterone for night sweats, only medroxyprogesterone on her med list. Risk of these medications is higher at her age, so I am holding for now. (9) Interstitial lung disease: Status: Acute Assessment and plan: Her list said COPD but her CT and PFTs from 2013 both c/w instertilal lung disease. No indication for steroids now. Consider pulmonology consult inpatient if not improving vs outpatient f/u IS Acapella (10) Skin ulcer of lower leg: Status: Acute Assessment and plan: these are chronic, unclear etiology, wound consult still pending. 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 Discussed with Dr. Serrano Subjective Subjective Patient reports: feels better, pain is less, tolerating liquids well, tolerating a regular diet, flatus, no bowel movement (reports a history of colitis and does not want scheduled BM meds ) and fever; denies diarrhea, nausea, vomiting or shortness of breath Exam Narrative Exam Narrative: Constitutional The patient is lying in bed cooperative during the interview. The patient without acute distress,pain is less for pain with movement HENMT: Head is atraumatic except for left upper eyebrow bruise, normocephalic, no lymphadenopathy. Facial structures with normal appearance Eyes: Well aligned, intact ROM Neck: Normal ROM, no meningeal signs Neuro:alert and oriented to self, person, place, time and situation. No neurological focal deficit Chest:Chest is symmetrical and normal appearance Resp: Increased oxygen requirement to 2l/min via n.c ,clear lung bilaterally but decreased in right mid-lower lung meredith, sat 87 on RA , 94% on 2 l Cardio: regular rhythm, S1, S2, no murmur, positive pulse to all four ext. GI: Abdomen is not distended, soft and non tender, bowel sounds are present : no residual as per bladder scan; no bladder distension Back/spine/Pelvis: pain to right hip/ back, normal alignment Integumentary: bilat. leg ulcers Extremities: strength 5/5 to bilateral upper ext 4-3/5 to lower extremities d/t pain on pull push testing Psych: RASS 0, congruent mood and normal to anxious affect,concerns for pain relief prior to PT.. Objective Last Vital Signs Temp 38.1 C H 07/27/23 07:26 Pulse 105 H 07/27/23 07:26 Resp 14 07/27/23 07:26 BP 149/6 H 07/27/23 07:26 Pulse Ox 85 L 07/27/23 07:26 Laboratory Results - last 24 hr 07/26/23 07/27/23 07:30 06:30 WBC 4.74 RBC 3.23 L Hgb 10.9 L Hct 33.2 L MCV 103 H MCH 33.7 H MCHC 32.8 RDW 13.0 Plt Count 218 MPV 9.2 Immature Gran % 0.8 Neutrophils % 64.0 Lymphocytes % 16.9 Monocytes % 8.4 Eosinophils % 9.3 Basophils % 0.6 Nucleated RBC % 0.0 Absolute Neutrophils 3.03 Absolute Lymphocytes 0.80 L Absolute Monocytes 0.40 Absolute Eosinophils 0.44 Absolute Basophils 0.03 Sodium 137 138 Potassium 3.9 4.8 Chloride 101 101 Carbon Dioxide 27.6 29.3 Anion Gap 8.4 7.7 BUN 10 11 Creatinine 0.7 0.7 Est GFR (CKD-EPI 2020) 86.30 86.30 Glucose 98 97 Calcium 8.2 L 8.7 Magnesium 1.9 2.2 Vitamin B12 566 Folate > 20.0 H Procalcitonin < 0.1 Add-On Test Request DONE PAWSS Have you Been Recently Intoxicated or Drunk Within the Last 30 days?: No Have you Ever Experienced Previous Episodes of Alcohol Withdrawal?: No Have you ever Experienced Withdrawal Seizures?: No Have you ever Experienced Delirium Tremens(DT)s?: No Have you ever undergone Alcohol Rehabilitation Treatment (i.e, inpt ot outpatient treatment programs)?: No Have you ever Experienced Blackouts?: No Have you ever Combined Alcohol with other Downers within the last 90 days?: No Have you ever Combined Alcohol with any other Substance of Abuse during the last 90 days?: No Positive Blood Alcohol level on Presentation? [PCS.BAL]: No Evidence of Increased Autonomic Activity (i.e. HR>120, tremor, sweating, agitation, nausea)?: No Result: 0 Time Spent with Patient Time Spent with Patient: >50 minutes Time was spent: preparing to see the patient(eg.review tests), ordering medications,tests, procedures, referring, communicating with other health healthcare management consultant, indepentently interpreting results, counseling the patient and care coordination
[2023-07-27 08:47] LABS: Lab Add On Test DONE
[2023-07-27 08:49] LABS: COVID-19 PCR Negative (Negative); Influenza A PCR Negative (Negative); Influenza B PCR Negative (Negative); RSV PCR Negative (Negative)
[2023-07-27 08:56] LABS: ESR 42 mm/hr (0-30)
[2023-07-27 08:59] LABS: C-Reactive Protein 15.12 mg/dL (0.0-0.3)
[2023-07-27 09:03] LABS: Source Nasopharynx
[2023-07-27 09:32] LABS: Procalcitonin < 0.1 ng/mL
--- NOTE | 2023-07-27 10:49 | PDOC.CMPRO ---
Date of service: 07/27/23 Time of Service: 10:49 Care Management Progress Note Progress Note Text Progress Note Text: S/O: Elvi was lying in bed when CM met with her. She stated that she is still feeling a lot of pain from her pelvic fracture, which has been limiting her mobility. She stated that she was able to move from the bed to the chair today. She reported that at baseline, she uses a w/c around her home, but she is able to transfer independently to and from the w/c. CM discussed options for discharge, as PT is recommending SNF vs HH; she stated that she would prefer to return home, and feels that if her pain is under control, she will be able to function well at home. She is agreeable to HH services upon discharge. CM will continue to follow. A: Elvi is an 82 year old female admitted to [facility] on 07/26/23 for pelvic fracture, pneumonia. P: Elvi will be evaluated by PT today which will help determine her discharge. Her transportation will likely be private vehicle via a friend vs RCT. She will follow up with her PCP and discharge plan of care. CM will continue to follow.
[2023-07-27 12:07] LABS: Bilirubin Negative (Negative); Blood Negative (Negative); Clarity Clear (Clear); Glucose Negative (Negative); Ketones 15 mg/dL (Negative); Leukocyte Esterase Negative (Negative); Nitrite Negative (Negative); Urobilinogen 0.2 mg/dL (Up to 0.2); pH 5.5 (5-8)
--- NOTE | 2023-07-27 12:12 | PTTR_ITS ---
Date of service: 07/27/23 Time of Service: 11:50 PT Notes Visit Reasons: pelvic fracture, pneumonia Inpatient Physical Therapy Treatment Note [facility] Date: 07/27/23 PRECAUTIONS: Fall, standard, activity as tolerated. SUBJECTIVE: Patient reports that she feels she is breathing better, reports still getting short of breath with extended exertion such as getting cleaned up while standing at the sink. OBJECTIVE: Sitting up in chair, on 2L/min supplemental O2, IV attached to RUE. ? PAIN: Reports stiffness / discomfort in knees, R>L VITALS: ? Pre-Treatment: SaO2 90% on 2L/min, HR 80 BPM Mid-Treatment: SaO2 remains >89% on 2L/min throughout. HR as high as 121. ? Post-Treatment: SaO2 92%, HR 86 BPM ? BED MOBILITY/TRANSFERS? Rolling L/R: not assessed Supine-sit: not assessed ? Sit-supine: not assessed ? Sit-stand: independent ? Stand-sit: independent ? Bed-Chair: independent ? Chair-bed: independent ? Therapeutic Exercises ([id number]): Direct one-on-one instruction in therapeutic exercises to develop strength, endurance, range of motion and flexibility. ? Exercises: * standing heel raises x10 * standing hip abduction x10 * mini squats x10 - patient c/o pain in right knee. Verbal and visual cues for correct performance decrease patient's report of pain to no discomfort Ambulation ? Assistive Device: Patient held IV pole for minimal support ? Weight bearing: full Assist: SBA? Distance:? 200 feet? Deviation: Reduced step length, reduced step height, patient reports feeling short of breath. SaO2 remains >89%.? Provided skilled instruction in proper exercise performance Provided skilled manual cues to facilitate proper muscle recruitment and/or form. ASSESSMENT:? Patient tolerates therapy well, recovers to baseline respirations in <2 minutes PLAN: Continue global strengthening per plan of care until patient is medically cleared for discharge TREATMENT CODE/TIME: 25 minutes beginning at 13:22
[2023-07-27] MEDS: Normal Saline Flush 10 ML SYR IVP ×3 (13:35→21:05)
--- NOTE | 2023-07-27 16:11 | W.ORTHOCONSU ---
Date of service: 07/27/23 Time of Service: 16:21 Assessment and Plan Assessment and plan (1) Fracture of right superior pubic ramus: Status: Acute Assessment and plan: 82-year-old female with mildly displaced right superior and inferior pubic rami fractures. Consult requested for weightbearing status and orthopedic follow-up. Chart, x-rays, and CT scan reviewed. Mildly displaced right superior and inferior pubic rami fractures, significant bone demineralization, no posterior pelvic ring, acetabulum, or hip fracture visualized. Moderately significant hip arthrosis. Recommendations- Weightbearing as tolerated with assist device like walker. DVT prophylaxis while immobile. Multimodal pain control. Follow-up outpatient orthopedics in about 2-3 weeks. Discussed with Fior Graves (2) Fracture of right inferior pubic ramus: Status: Acute Assessment and plan: As above [facility] All Active Problems (Updated 07/27/23 @ 16:18 by Drew Martinez MD) Fracture of right inferior pubic ramus (Acute) Fracture of right superior pubic ramus (Acute) ACP (advance care planning) (Acute) Alcohol use disorder (Acute) Laceration of skin of right forearm (Acute) Skin ulcer of lower leg (Acute) Discharge planning issues (Acute) DVT prophylaxis (Acute) Interstitial lung disease (Acute) Laceration of arm, right, complicated (Acute) Fractured pelvis (Acute) Community acquired pneumonia (Acute) T12 compression fracture (Acute) Acute exacerbation of chronic low back pain (Acute) Full code status (Acute) E. 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 fell down and could not get up Hypertension (Chronic) with labile blood pressure. Morbid obesity (Chronic) Allergic rhinitis (Chronic) Hyperlipidemia (Chronic) History of anemia (Chronic) Fibromyalgia (Chronic) DJD (degenerative joint disease) (Chronic) Chronic depression (Chronic) Insomnia (Chronic) Gastroesophageal reflux disease (Chronic) Hiatal hernia (Chronic) Irritable bowel syndrome (Chronic) History of surgery (Chronic) a. S/P open right ankle fracture/dislocation. b. Left knee arthroscopy. c. Right wrist fracture repair. d. T/A as a child. Dehydration, mild (Acute 09/22/14) Housing or economic circumstance (Chronic 09/22/14) a. No heat for 1-1/2 days H/O fall (Chronic) Anemia (Chronic) Person living alone (Chronic 09/22/14) Alcohol withdrawal delirium (Acute 09/22/14) Rhabdomyolysis (Acute 09/22/14) Alcohol dependence (Chronic) Ataxia (Chronic) COPD (chronic obstructive pulmonary disease) (Chronic) Onychomycosis (Chronic) Depression (Chronic) Medical History Palliative care encounter Hiatal hernia IBS (irritable bowel syndrome) Hypertension Allergic rhinitis GERD (gastroesophageal reflux disease) DJD (degenerative joint disease) Hyperlipidemia Hypercholesterolemia Fibromyalgia Depression Anemia Alcohol abuse Insomnia Surgical History Tonsillectomy and adenoidectomy Repair fracture right wrist ORIF right ankle Colonoscopy - MAC (11/18/16) Arthroplasty of knee left Family History Mother Dementia Maternal Aunt Diabetes Social History Smoking/Tobacco Use Status: Former Tobacco Use Smoking risk assessment performed?: Yes Alcohol Intake: current Alcohol Intake frequency: 0-2 drinks per day Alcohol type: wine Counseling given: Yes Details: 1-2 bottle of wine/day Drug use: Daily Substance use type: does not use and marijuana Details: two tokes for sleep Housing: house Do you feel safe at home: Yes Do you feel safe in your relationship?: Yes Additional Social history: Lives alone in home in [facility], has a cat. States hasn't been out of house for a year. One sister in [place] Results Last Vital Signs Temp 97.7 F 07/27/23 15:10 Pulse 83 07/27/23 15:10 Resp 16 07/27/23 15:10 BP 109/73 07/27/23 15:10 Pulse Ox 98 07/27/23 15:10 Labs 07/27/23 06:30 07/27/23 06:30 Labs: Laboratory Results - last 24 hr 07/27/23 07/27/23 07/27/23 06:30 07:55 11:47 WBC 4.74 RBC 3.23 L Hgb 10.9 L Hct 33.2 L MCV 103 H MCH 33.7 H MCHC 32.8 RDW 13.0 Plt Count 218 MPV 9.2 Immature Gran % 0.8 Neutrophils % 64.0 Lymphocytes % 16.9 Monocytes % 8.4 Eosinophils % 9.3 Basophils % 0.6 Nucleated RBC % 0.0 Absolute Neutrophils 3.03 Absolute Lymphocytes 0.80 L Absolute Monocytes 0.40 Absolute Eosinophils 0.44 Absolute Basophils 0.03 ESR 42 H Sodium 138 Potassium 4.8 Chloride 101 Carbon Dioxide 29.3 Anion Gap 7.7 BUN 11 Creatinine 0.7 Est GFR (CKD-EPI 2020) 86.30 Glucose 97 Calcium 8.7 Magnesium 2.2 C-Reactive Protein 15.12 H Procalcitonin < 0.1 Urine Color Yellow Urine Clarity Clear Urine pH 5.5 Ur Specific [place] 1.020 Urine Protein Negative Urine Ketones 15 H Urine Blood Negative Urine Nitrite Negative Urine Bilirubin Negative Urine Urobilinogen 0.2 Ur Leukocyte Esterase Negative Urine Glucose Negative COVID-19 Source Nasopharynx SARS-CoV-2 (PCR) Negative Influenza Type A (PCR) Negative Influenza Type B (PCR) Negative RSV (PCR) Negative Add-On Test Request DONE
[2023-07-27 16:32] LABS: NT-proBNP 322 pg/mL (<300)
--- NOTE | 2023-07-27 16:56 | PT.INTREAT ---
Date of service: 07/27/23 Time of Service: 11:50 PT Notes Visit Reasons: pelvic fracture, pneumonia Inpatient Physical Therapy Treatment Note [facility] Date: 07/27/23 PRECAUTIONS: Fall, standard, activity as tolerated. WBAT B LE SUBJECTIVE: Patient reports that pain medications are not working, nothing seems to touch her pain. Also PureWick doesn't seem to work, reports her sheets are soaked OBJECTIVE: Supine in bed. Agreeable to get up to chair. Purewick in place. Bedding wet with urine.? PAIN: 04/30 VITALS: monitored by nursing staff. ? Therapeutic Activities ([id number]): Direct one-on-one instruction in dynamic activities to improve functional performance. ? BED MOBILITY/TRANSFERS? Rolling L/R: unable Supine-sit: modified independent with elevated HOB, bilateral side rails, extended time? Sit-supine: Min assist to raise RLE over EOB ? Sit-stand: Min assist at gait belt from elevated bed? Stand-sit: min to mod assist of one at gait belt with verbal cues for safety. Patient tends to flop. ? Bed-Chair: Min assist, mod verbal cueing and encouragement. ? Chair-bed: Min assist, mod verbal cueing and encouragement. Provided skilled cues and instruction on performance and technique throughout. ASSESSMENT:? Patient is still having a lot of pain. Reports pain increased through sitting up for lunch. Reports that in spite of this, she is happy to have sat up for lunch. PLAN: Continue global strengthening per plan of care until patient is medically ready to discharge and obtains a safe discharge plan. TREATMENT CODE/TIME: 20 minutes beginning at 11:50 and 16 minutes beginning at 13:00 for a total of 36 minutes today.
[2023-07-27] MEDS: HYDROmorphone 2 MG/ML SYR IVP (17:08)
[2023-07-27] MEDS: QUEtiapine 50 MG TAB PO (19:58)
[2023-07-27] MEDS: traZODone 100 MG TAB 200 MG PO (20:28)
--- NOTE | 2023-07-27 20:31 | WOUNDCONS ---
Date of service: 07/27/23 Time of Service: 19:00 Wound Initial Evaluation Narrative Narrative: Pt is an 82 year old woman who lives alone and is primarily home and wheelchair bound. She ambulates minimally at home and had gotten up to answer the door when she lost her balance and fell. She does report frequent falls at home. She sustained pubic ramus fractures as well as a T12 compression fracture. Pt was also found to have a mild pneumonia with hypoxia in the ED. Her history is significant for Fibromyalgia with chronic opiod use, alcohol abuse usually drinking 1-2 bottles of wine per day, anemia, GERD, interstitial lung disease, Osteoarthritis of left knee, Arthritis of right ankle, lymphocytic/collagenous colitis/proctitis, hypertension, depression, right ankle fracture/dislocation requiring ORIF, Rhabdomyolysis, and Ataxia. Body Four View: 1. Left anterior tib fib 2. Right anterior distal tib fib 3. Right medial malleolus Wound Left Anterior Tib/Fib(lower leg): Wound Type: Statis Ulcer and Partial Thickness Wound General Appearance: Draining, Unapproximated and Other (slough) Wound Bed Greatest Portion: Red (Granulation) and Yellow (Slough) Wound Bed Lesser Portion: Black (Eschar) Wound Surrounding Tissue Appearance: Purple, Blanched/Dull and Edges Rolled Percent of Wound Bed Granulated/Red: 50 Percent of Wound Bed Slough/Yellow: 30 Percent of Wound Bed Eschar/Black: 20 Wound Length: 1.14 in Wound Width: 0.63 in Wound Depth: 0.08 in Wound Drainage Amount: Moderate Wound Drainage Odor: None/Absent Wound Drainage Description: Bloody and Other (yellow) Wound Topical Solution/Irrigant: Other (Anasept) Wound Debridement Method: Conservative Sharp (curette, debrisoft sponge) and Other Wound Debridement Result: Healthy Tissue Revealed Wound Debridement Amount of Tissue Removed: Moderate Additional Other Comments: Only devitalized nonviable tissue removed, epibole removed Right Anterior Distal Tib/Fib(lower leg): Wound Type: Statis Ulcer and Partial Thickness Wound General Appearance: Blackened, Draining and Unapproximated Wound Bed Greatest Portion: Black (Eschar) Wound Bed Lesser Portion: Dusky Red Wound Surrounding Tissue Appearance: Blanched/Dull and Edges Rolled Percent of Wound Bed Granulated/Red: 0 Percent of Wound Bed Slough/Yellow: 10 Percent of Wound Bed Eschar/Black: 90 Wound Length: 0.35 in Wound Width: 0.31 in Wound Depth: 0.04 in Wound Drainage Amount: Minimal Wound Drainage Odor: None/Absent Wound Drainage Description: Bloody and Purulent Wound Topical Solution/Irrigant: Other (Anasept) Wound Debridement Method: Conservative Sharp (curette) and Other (debrisoft) Wound Debridement Result: Healthy Tissue Revealed Wound Debridement Amount of Tissue Removed: Moderate Additional Other Comments: Necrotic and slough removed from covering the wound Right medial malleolus: Wound Type: Statis Ulcer and Partial Thickness Wound General Appearance: Draining, Unapproximated and Other (slough) Wound Bed Greatest Portion: Yellow (Slough) Wound Bed Lesser Portion: Red (Granulation) Wound Surrounding Tissue Appearance: Bright Red Percent of Wound Bed Granulated/Red: 40 Percent of Wound Bed Slough/Yellow: 60 Percent of Wound Bed Eschar/Black: 0 Wound Length: 0.59 in Wound Width: 0.39 in Wound Depth: 0.08 in Wound Drainage Amount: Moderate Wound Drainage Odor: None/Absent Wound Drainage Description: Bloody and Other (yellow) Wound Topical Solution/Irrigant: Other (Anasept) Wound Debridement Method: Conservative Sharp and Other (Debrisoft sponge) Wound Debridement Result: Healthy Tissue Revealed Wound Debridement Amount of Tissue Removed: Moderate Additional Other Comments: Epibole, devitalized, nonviable tissue removed as well as slough. Circulation, Sensation, Motion Edema Degree: Other (none) Peripheral Pulse Strength: Absent (unable to palpate) Capillary Refill: Greater than 3 seconds (4-5 seconds) Sensation Description: Other (pt states has sensation but stated she did not feel debridement, fell asleep during treatment) Skin Temperature: Cool Skin Color: Damian MADELYN Comment:: unable to obtain as device is out of service for recalibration Pain Pain Level: 0 Pain Scale Used: Adult Wound Summary Wound Summary: Epibole, slough, and necrotic edges removed from wound with curette. Debrisoft sponge used over the wound bed to removed presumed biofilm as the wound has been present for months. Healthy red tissue noted with bleeding after debridement completed. Quickly stopped bleeding with pressure to area. Pt slept through most of treatment and verbalized that she did not feel it during debridement. Feet are cool. Pulses per doppler only bilaterally. Provider informed. Photo Photo: Treatment/Dressing Change Topicals/Ointments: Anasept Gel Cleanse With: Anasept and Other (gauze) Dressing Types: Mepilex w/Border Dressing Comment: change every three days and prn Nutrition Education Reviewed Nutrition Education: Yes Recomendation Recomendation:: Recommend vascular assessment of the pt be performed. Requested right ankle xray to rule out osteomyelitis. Dressing oders: 1. Cleanse the wounds with Anasept curtain cleaner. Allow to dwell for 2 minutes. 2. Pat dry. 3. Apply nickel thick amount of anasept gel to wound bed. 4. Apply skin prep to periwound skin around the wound. 5. Apply Mepilex 4x4 dressing over wound. 6. Change every 3 days and prn. Physcian/Nurse Practioner Notified: Yes Treatment Time Time Total Time Spent with Patient: 60 minutes Patient Will be Seen Weekly Treatment: 1x/wk
[2023-07-27 20:35] LABS: Legionella Ag Detection Urine Negative (Negative)
--- NOTE | 2023-07-27 20:49 | DI.VRAD_ITS ---
PROCEDURE INFORMATION: Exam: XR Right Ankle Exam date and time: 07/27/2023 8:13 PM Age: 82 years old Clinical indication: Other: Question bone involvement with skin ulcer; Prior surgery; Surgery date: 1-6 months; Surgery type: Right ankle FX TECHNIQUE: Imaging protocol: Radiologic exam of the right ankle. Views: 1 or 2 views. COMPARISON: CR XR ANKLE RT COMPLETE 10/23/2018 11:35 AM FINDINGS: Bones/joints: Prior lateral sideplate and screw internal fixation of the distal right fibula with 2 internal fixation screws through the medial malleolus, appears similar to prior. No obvious evidence of acute hardware complication. No discrete or displaced fracture. No joint dislocation. No aggressive osseous destructive process to suggest osteomyelitis however MRI would offer more sensitive evaluation for early changes of osteomyelitis. Severe degenerative changes of the right ankle with joint space narrowing and subchondral irregularity. Moderate degenerative changes of the right midfoot. Plantar spur is present. Soft tissues: Mild soft tissue edema. IMPRESSION: 1. No discrete or displaced fracture. 2. Status post ORIF of the right ankle with severe degenerative changes. Dictated and Authenticated by: Michele Soni MD. Ordering:BRADY Childress MD
[2023-07-27] MEDS: Enoxaparin 40 MG/0.4 ML SYR SC (21:06)
[2023-07-27] MEDS: cefTRIAXone 2 GM/50 ML BAG IVPB (21:52)
[2023-07-28] VITALS (9 sets, daily range): BP systolic 89–120; BP diastolic 61–76; PULSE 82–99; RESP 17–19; TEMP 36.1–37.2; O2SAT 91–96
--- NOTE | 2023-07-28 | DI.US_ITS ---
Exam(s) US EXTREMITY VENOUS BI EXAM: US EXTREMITY VENOUS BI CLINICAL HISTORY: fever, concern for a DVT TECHNIQUE: Grayscale, color, and doppler imaging of the deep venous system of both lower extremities was performed. COMPARISON: US EBARD from 02/05/2018 FINDINGS: There is no evidence of intraluminal thrombus and there is normal compression and augmentation demons trated within the common femoral veins, femoral veins, and popliteal veins of both lower extremities. In the calves the interrogated veins also exhibit normal compression/ augmentation properties. The greater saphenous veins also appear patent as do the saphenofemoral junctions bilaterally.. IMPRESSION: 1. No ultrasound evidence of DVT in either lower extremity. DATA REPOSITORY:
[2023-07-28] MEDS: Normal Saline Flush 10 ML SYR IVP ×4 (05:51→14:08)
[2023-07-28] MEDS: DOXYCYCLINE 100 MG in Normal Saline 100 ML IVPB ×2 (05:52→17:47)
[2023-07-28 06:43] LABS: Abs Immature Grans 0.04 10^3/uL (0.0-0.06); Absolute Basophil Count 0.02 10^3/uL (0.0-0.2); Absolute Lymphocyte Count 0.92 10^3/uL (1.2-3.4); Absolute Monocyte Count 0.86 10^3/uL (0.1-0.8); Absolute Neutrophil Count 2.51 10^3/uL (1.2-6.7); Basophils % 0.4; Eosinophils % 10.3; HCT 34.2 % (36.0-46.0); HGB 10.8 g/dL (11.2-15.7); Immature Grans % 0.8; MCH 33.3 pg (27.0-33.0); MCHC 31.6 % (32.0-36.0); MCV 106 fL (80-95); MPV 9.8 fL (8.0-11.0); Monocytes % 17.7; Neutrophils % 51.8; Platelet Count 224 10^3/uL (130-400); RBC 3.24 10^6/uL (3.93-5.22); RDW-SD 50.3 fL; WBC 4.85 10^3/uL (4.4-10.8)
[2023-07-28] MEDS: Esomeprazole 40 MG CAPCR PO (07:10)
[2023-07-28] MEDS: Ketorolac 15 MG/ML VIAL IVP ×3 (07:10→19:44)
[2023-07-28 07:42] LABS: BUN 12 mg/dL (7-18); CREATININE 0.8 mg/dL (0.55-1.02); Calcium 8.9 mg/dL (8.5-10.1); Chloride 100 mmol/L (98-107); Estimated GFR 73.52 (mL/min/1.73m2); Glucose 87 mg/dL (74-106); Potassium 4.8 mmol/L (3.5-5.1); Sodium 133 mmol/L (136-145)
[2023-07-28 07:43] LABS: Ferritin > 2000 ng/mL (8-252)
[2023-07-28 08:22] LABS: Homocysteine 6.8 umol/L (5.0-13.9)
[2023-07-28] MEDS: Cholecalciferol (Vitamin D3) 400 UNIT TAB 800 UNIT PO (08:42)
[2023-07-28] MEDS: Cyanocobalamin 500 MCG TAB PO (08:43)
[2023-07-28] MEDS: Multivitamin TAB 1 TAB PO (08:43)
[2023-07-28] MEDS: HYDROcodone 5/Acetaminophen 325 TAB PO ×3 (08:43→19:45)
[2023-07-28] MEDS: DULoxetine 30 MG CAP 60 MG PO (08:43)
[2023-07-28] MEDS: Folic Acid 1 MG TAB PO (08:43)
[2023-07-28] MEDS: Thiamine 100 MG TAB PO (08:44)
[2023-07-28] MEDS: DULoxetine 30 MG CAP PO (08:44)
[2023-07-28] MEDS: Potassium Chloride 20 MEQ TABCR PO ×3 (08:44→19:45)
[2023-07-28] MEDS: Fluticasone NASAL SPRAY 16 GM BTL NS (08:45)
[2023-07-28] MEDS: Clotrimazole 1% 15 GM TUBE TP (08:45)
[2023-07-28] MEDS: Normal Saline Flush 10 ML SYR IV ×2 (08:45→19:42)
[2023-07-28] MEDS: HYDROmorphone 2 MG/ML SYR IVP ×2 (10:03→14:08)
--- NOTE | 2023-07-28 10:34 | PDOC.CMPRO ---
Date of service: 07/28/23 Time of Service: 10:34 Care Management Progress Note Progress Note Text Progress Note Text: S/O: Elvi was lying in bed when CM met with her. She stated that she continues to be in a lot of pain, but was able to ambulate, with PT, from the bed to the chair to eat lunch. CM talked with PT, who is recommending SNF at this time. CM discussed this with Elvi, and she agreed to have CM send referrals to the [facility] and [facility] ([place] admin). She stated that her first choice is the [facility], as she has had a good experience there. CM will continue to follow. A: Elvi is an 82 year old female admitted to [facility] on 07/26/23 for pelvic fracture, pneumonia. P: Elvi will be evaluated by PT today which will help determine her discharge. Her transportation will likely be private vehicle via a friend vs [facility]. She will follow up with her PCP and discharge plan of care. CM will continue to follow.
--- NOTE | 2023-07-28 10:53 | PTTR_ITS ---
PT Notes Visit Reasons: pelvic fracture, pneumonia Date: 07/28/23 PRECAUTIONS: Fall, standard, activity as tolerated. WBAT B LE SUBJECTIVE: pt approached multiple times during the course of the morning,to coordinated with nurse and to get proper timing for when to engage pt after receiving PRN pain meds, pt ready by 10:30am and agreed to transfer training and ambulation. pt was seen for a second time in the afternoon. OBJECTIVE: Supine in bed. Agreeable to get up to chair. abdominal drain, and NC on 2L 02 support. ? PAIN: very painful at all times VITALS: monitored by nursing staff. ? Therapeutic Activities [id number]: Direct one-on-one instruction in dynamic activities to improve functional performance. ? BED MOBILITY/TRANSFERS? Rolling L/R: min A Supine-sit: modified independent with elevated HOB, bilateral side rails, extended time?Sit-supine: Min assist to raise RLE over EOB ? Sit-stand: CGA? Stand-sit: min A for controlled descent. ? Bed-Chair: min A? Chair-bed: min A Provided skilled cues and instruction on performance and technique throughout. GAIT? Assistive Device: FWW? Weight bearing: Full Assist: SBA ? Distance:? 20' x1 am/ 20' x1 pm? Deviation: stoop forward posture slow, wide AUSTEN, low step height and step length ASSESSMENT:? pt ok with staying in recliner for lunch and would like to go back in bed post lunch. pt return transfer and room ambulation post lunch, pt situated in bed for proper alignment, safety and comfort, call pittman setup, alarm setup and bedside table setup post session. PLAN: Continue global strengthening per plan of care until patient is medically ready to discharge and obtains a safe discharge plan. TREATMENT CODE/TIME: [id number] 20mins (10:30-10:50am) [id number] 15mins (1:00- 1:15pm)
--- NOTE | 2023-07-28 16:50 | W.PM.PROGNOT ---
Date of Service Date of service: 07/28/23 Time of Service: 16:50 Assessment and Plan Assessment and plan (1) Fractured pelvis: Status: Acute Assessment and plan: WBAT, per ortho. Pain control: d/c dilaudid IV. Provide prn PO hydrocodone in addition to the scheduled hydrocodone. Continue toradol. Encourage pulmonary toilet. (2) Community acquired pneumonia: Status: Acute Assessment and plan: With hypoxia. Continue ceftriaxone, doxycycline. FLUVID negative. Encourage pulmonary toilet. Wean O2 as tolerated. (3) T12 compression fracture: Status: Acute Assessment and plan: Pain management as above. Also, add a lidocaine patch. (4) Chronic pain disorder: Status: Chronic Assessment and plan: As above (5) Alcohol dependence: Status: Chronic Assessment and plan: No evidence of EtOH w/d today. CIWA scores 1. Continue CIWA. Continue thiamine and MVI. (6) Anemia: Status: Chronic Assessment and plan: Anemia of chronic disease. Monitor H/h. No indication for transfusion at this time. (7) Gastroesophageal reflux disease: Status: Chronic Assessment and plan: Continue PPI (8) Menopausal disorder: Status: Chronic Assessment and plan: Resume provera (9) Interstitial lung disease: Status: Chronic Assessment and plan: Not in acute exacerbation F/u as outpatient (10) Skin ulcer of lower leg: Status: Acute Assessment and plan: Wound care consult appreciated. (11) Laceration of skin of right forearm: Status: Acute Assessment and plan: S/p suturing in the ED. F/u for suture removal in 1 week. (12) DVT prophylaxis: Status: Acute Assessment and plan: SC enoxaparin (13) Discharge planning issues: Status: Acute Assessment and plan: Full code Palliative care, PT consulted. Anticipate discharge home (the patient is not interested in SNF). Subjective Subjective Interval history since last seen: C/o feeling bad, like her breathing was uneven and having difficulty exhaling after she received her first dose of IV hydromorphone. She feels better now. No dizziness, CP, nausea. Reports acute pain in legs that she thinks the hydrocodone would not do anything for. Nursing reports the patient having very concentrated urine. She is down to 0.5 L of O2 by NC saturating 94%. Nursing also documented black stools x 1. Exam Narrative Exam Narrative: General: a pleasant elderly female who is A&Ox3, conversant, not sedated, not in respiratory distress HEENT: EOMI, MMM Heart: RRR, no m/r/g Lungs: Diminished breath sounds at B bases; sounds coarse on expiration B otherwise Abdomen: soft, nontender, nondistended Extremities: no edema BLEs; laceration RUE is sutured - not draining, open to air, no erythema Objective Last Vital Signs Temp 36.1 C L 07/28/23 16:44 Pulse 82 07/28/23 16:44 Resp 19 07/28/23 16:44 BP 90/75 L 07/28/23 16:45 Pulse Ox 94 07/28/23 16:44 Laboratory Results - last 24 hr 07/27/23 07/27/23 07/28/23 06:30 11:47 05:58 WBC 4.85 RBC 3.24 L Hgb 10.8 L Hct 34.2 L MCV 106 H MCH 33.3 H MCHC 31.6 L RDW 13.0 Plt Count 224 MPV 9.8 Immature Gran % 0.8 Neutrophils % 51.8 Lymphocytes % 19.0 Monocytes % 17.7 Eosinophils % 10.3 Basophils % 0.4 Nucleated RBC % 0.0 Absolute Neutrophils 2.51 Absolute Lymphocytes 0.92 L Absolute Monocytes 0.86 H Absolute Eosinophils 0.50 Absolute Basophils 0.02 Sodium 133 L Potassium 4.8 Chloride 100 Carbon Dioxide 26.0 Anion Gap 7.0 BUN 12 Creatinine 0.8 Est GFR (CKD-EPI 2020) 73.52 Glucose 87 Calcium 8.9 Ferritin > 2000 H Homocysteine 6.8 Urine Legionella Ag Negative Objective Narrative Objective Narrative: US venous: 1. No ultrasound evidence of DVT in either lower extremity. PAWSS Have you Been Recently Intoxicated or Drunk Within the Last 30 days?: No Have you Ever Experienced Previous Episodes of Alcohol Withdrawal?: No Have you ever Experienced Withdrawal Seizures?: No Have you ever Experienced Delirium Tremens(DT)s?: No Have you ever undergone Alcohol Rehabilitation Treatment (i.e, inpt ot outpatient treatment programs)?: No Have you ever Experienced Blackouts?: No Have you ever Combined Alcohol with other Downers within the last 90 days?: No Have you ever Combined Alcohol with any other Substance of Abuse during the last 90 days?: No Positive Blood Alcohol level on Presentation? [PCS.BAL]: No Evidence of Increased Autonomic Activity (i.e. HR>120, tremor, sweating, agitation, nausea)?: No Result: 0 Time Spent with Patient Time Spent with Patient: 35-49 minutes Time was spent: preparing to see the patient(eg.review tests), obtaining and/or reviewing separately otained hiistory, ordering medications,tests, procedures, referring, communicating with other health nursing care attendant, indepentently interpreting results, counseling the patient and care coordination
[2023-07-28] MEDS: Lidocaine 5% Patch 1 PATCH TP (17:26)
--- NOTE | 2023-07-28 17:26 | NUR.NOTE ---
At approx 1620, pt called staff into the room stating I just don't feel right. This nurse attempted to get clarification on what not feeling right meant and pt stated she felt she wasn't breathing right. VS taken and stable. Neuro checks WNL, pupils pinpoint and sluggish. This nurse went to get the MD and was examined by MD. After looking at pt eMAR it was determined that pt had received a dose of Dilaudid, which was new to the patient. MD stated she would stop the Dilaudid and add a PRN [place] to help with breakthrough pain. Pt stated she felt much better. IVF added r/t dark urine. Pt in NAD, will continue to monitor. Charge nurse aware
[2023-07-28] MEDS: Lactated Ringers 1,000 ML 125 ML IV (17:27)
[2023-07-28] MEDS: QUEtiapine 50 MG TAB PO (19:45)
[2023-07-28] MEDS: cefTRIAXone 2 GM/50 ML BAG IVPB (21:10)
[2023-07-28] MEDS: traZODone 100 MG TAB 200 MG PO (21:12)
[2023-07-29 00:14] LABS: Streptococcus Pneumoniae Ag, U Negative (Negative)
[2023-07-29] MEDS: Normal Saline Flush 10 ML SYR IVP ×2 (01:54→05:39)
[2023-07-29] MEDS: Ketorolac 15 MG/ML VIAL IVP ×2 (01:55→07:30)
[2023-07-29] MEDS: DOXYCYCLINE 100 MG in Normal Saline 100 ML IVPB (05:40)
[2023-07-29 06:48] LABS: Abs Immature Grans 0.03 10^3/uL (0.0-0.06); Absolute Basophil Count 0.03 10^3/uL (0.0-0.2); Absolute Eosinophil Count 0.51 10^3/uL (0.0-0.7); Absolute Lymphocyte Count 0.86 10^3/uL (1.2-3.4); Absolute Monocyte Count 0.96 10^3/uL (0.1-0.8); Absolute Neutrophil Count 2.33 10^3/uL (1.2-6.7); Basophils % 0.6; Eosinophils % 10.8; HCT 30.7 % (36.0-46.0); HGB 9.8 g/dL (11.2-15.7); Immature Grans % 0.6; Lymphocytes % 18.2; MCH 33.1 pg (27.0-33.0); MCHC 31.9 % (32.0-36.0); MCV 104 fL (80-95); MPV 9.6 fL (8.0-11.0); Monocytes % 20.3; Neutrophils % 49.5; Platelet Count 220 10^3/uL (130-400); RBC 2.96 10^6/uL (3.93-5.22); RDW 12.7 % (11.7-14.6); RDW-SD 47.4 fL; WBC 4.72 10^3/uL (4.4-10.8)
[2023-07-29 07:13] LABS: Anion Gap 5.1 mmol/L (3-11); BUN 12 mg/dL (7-18); CO2 25.9 mmol/L (21.0-32.0); CREATININE 0.7 mg/dL (0.55-1.02); Calcium 8.6 mg/dL (8.5-10.1); Chloride 102 mmol/L (98-107); Glucose 99 mg/dL (74-106); Potassium 5.3 mmol/L (3.5-5.1); Sodium 133 mmol/L (136-145)
[2023-07-29] MEDS: Normal Saline Flush 10 ML SYR IV ×2 (07:30→17:21)
[2023-07-29] MEDS: Potassium Chloride 20 MEQ TABCR PO (07:31)
[2023-07-29] MEDS: Thiamine 100 MG TAB PO (07:31)
[2023-07-29] MEDS: DULoxetine 30 MG CAP 60 MG PO (07:31)
[2023-07-29] MEDS: HYDROcodone 5/Acetaminophen 325 TAB PO ×5 (07:31→20:50)
[2023-07-29] MEDS: Multivitamin TAB 1 TAB PO (07:31)
[2023-07-29] MEDS: Esomeprazole 40 MG CAPCR PO ×2 (07:32→20:52)
[2023-07-29] MEDS: Cholecalciferol (Vitamin D3) 400 UNIT TAB 800 UNIT PO (07:32)
[2023-07-29] MEDS: Folic Acid 1 MG TAB PO (07:32)
[2023-07-29] MEDS: Cyanocobalamin 500 MCG TAB PO (07:32)
[2023-07-29] MEDS: Fluticasone NASAL SPRAY 16 GM BTL NS ×2 (07:33→20:49)
[2023-07-29] MEDS: DULoxetine 30 MG CAP PO (07:36)
[2023-07-29] MEDS: Clotrimazole 1% 15 GM TUBE TP (07:36)
[2023-07-29] MEDS: medroxyPROGESTERone 5 MG TAB 2.5 MG PO (07:36)
[2023-07-29 08:44] VITALS: BP 120/66; PULSE 78; RESP 17; TEMP 37.3; O2SAT 947
[2023-07-29 09:19] VITALS: O2SAT 95
[2023-07-29] MEDS: Acetaminophen 325 MG TAB PO (11:57)
--- NOTE | 2023-07-29 12:49 | PT.INTREAT ---
PT Notes Visit Reasons: pelvic fracture, pneumonia Inpatient Physical Therapy Treatment Note [facility] Date: 07/29/23 SUBJECTIVE: Elvi states that she is in a lot of pain both in pelvis and her colitis as well. She is unsure how much she will be able to do but willing to do what it takes to get home. OBJECTIVE: []? VITALS: ?monitored by nursing. Therapeutic Activities ([id number]): Direct one-on-one instruction in dynamic activities to improve functional performance. ? BED MOBILITY/TRANSFERS? Supine-sit: SBA ? Sit-supine: SBA/ min A for RLE ? Sit-stand: CGA ? Stand-sit: CGA/ min A for controlled decent ? Provided skilled cues and instruction on performance and technique throughout. GAIT? Assistive Device: FWW? Weight bearing: AT Assist: CGA? Distance:?2-3'. Stomach hurt too much to sit in recliner. Went back to bed? Deviation: cues to wt bear thru UE more to decrease wt thru LE.? Provided skilled instruction in proper exercise performance She did perform seated LAQ x10, and supine heel slides and bridging. ASSESSMENT:?tolerated session fairly well. Mostly uncomfortable from colitis, increased gas pain. Otherwise Elvi would have sat up in chair and ambulated a greater distance. PLAN: will check in with her tomorrow and continue to work strength and ambulation/ functional mobility. TREATMENT CODE/TIME: 20 min, [id number]
--- NOTE | 2023-07-29 14:40 | W.PM.PROGNOT ---
Date of Service Date of service: 07/29/23 Time of Service: 14:40 Assessment and Plan Assessment and plan (1) Fractured pelvis: Status: Acute Assessment and plan: WBAT, per ortho. Pain control with scheduled hydrocodone as well as as needed hydrocodone. Ketorolac put on hold because of her black stools and her anemia. Patient is on Nexium regularly for her GERD. Continue physical therapy as tolerated. She will likely need short-term stay at care home facility for rehab. Encourage pulmonary toilet. Qualifiers: Encounter type: initial encounter Pelvic bone location: pubis Sublocation of pubis: superior rim Fracture type: closed Laterality: right Qualified Code(s): S32.511A - Fracture of superior rim of right pubis, initial encounter for closed fracture (2) Community acquired pneumonia: Status: Acute Assessment and plan: Patient has chronic interstitial lung disease with patchy groundglass infiltrates in both lung meredith, apparently present back in June 2020. Not convinced that she actually has a community-acquired pneumonia at this point. She is afebrile and has no leukocytosis. Furthermore she denies any sputum production. Patient remains on Rocephin and vancomycin and doxycycline. Her wound cultures from her leg cultures is growing MSSA. I think we can consolidate her treatment and just treat the MSSA with Ancef. I do not think she needs further coverage for pneumonia. Qualifiers: Laterality: unspecified laterality Qualified Code(s): J18.9 - Pneumonia, unspecified organism (3) T12 compression fracture: Status: Acute Assessment and plan: Pain management as above. Also, add a lidocaine patch. Qualifiers: Encounter type: initial encounter Qualified Code(s): S22.080A - Wedge compression fracture of T11-T12 vertebra, initial encounter for closed fracture (4) Chronic pain disorder: Status: Chronic Assessment and plan: As above (5) Alcohol dependence: Status: Chronic Assessment and plan: No evidence of EtOH w/d today. CIWA scores 1. Continue CIWA. Continue thiamine and MVI. Qualifiers: Substance use status: uncomplicated Qualified Code(s): F10.20 - Alcohol dependence, uncomplicated (6) Anemia: Status: Chronic Assessment and plan: Anemia of chronic disease. Monitor H/h. No indication for transfusion at this time. However with a gradually declining hemoglobin I will discontinue her ketorolac but continue her Nexium and check stools for occult blood. We will get iron levels in the morning if her iron deficiency persists I will put her on parenteral iron supplementation. Qualifiers: Anemia type: iron deficiency (7) Gastroesophageal reflux disease: Status: Chronic Assessment and plan: Continue PPI but increase her Nexium to BID and consider adding Carafate to her regimen. Qualifiers: Esophagitis presence: esophagitis presence not specified Qualified Code(s): K21.9 - Gastro-esophageal reflux disease without esophagitis (8) Menopausal disorder: Status: Chronic Assessment and plan: Resume provera (9) Interstitial lung disease: Status: Chronic Assessment and plan: Not in acute exacerbation F/u as outpatient (10) Skin ulcer of lower leg: Status: Acute Assessment and plan: Wound care consult appreciated. Qualifiers: Laterality: right Non-pressure ulcer stage: unspecified non-pressure ulcer stage Qualified Code(s): L97.919 - Non-pressure chronic ulcer of unspecified part of right lower leg with unspecified severity (11) Laceration of skin of right forearm: Status: Acute Assessment and plan: S/p suturing in the ED. F/u for suture removal in 1 week. Qualifiers: Encounter type: initial encounter Qualified Code(s): S51.811A - Laceration without foreign body of right forearm, initial encounter (12) DVT prophylaxis: Status: Acute Assessment and plan: SC enoxaparin (13) Discharge planning issues: Status: Acute Assessment and plan: Full code Palliative care, PT consulted. Although patient is indicated she is not interested in SNF I think it will be required for her to recuperate well enough to survive at home. Subjective Subjective Interval history since last seen: Patient complains of increased gas and bloating. I noted that she had some black stools yesterday which she attributes to oral iron supplementation. She has a history of iron deficiency anemia. However she has had no iron supplementation since she has been hospitalized. I stopped her ketorolac because of her black stools. We will have nursing check her stools for occult blood and I will check her iron levels tomorrow. If she remains iron deficiency I will put her on parenteral iron supplementation. With respect to her oxygen levels and her pneumonia she is actually down to room air with an oxygen saturation 95%. She uses her incentive spirometer and Acapella but is not really mobilizing much sputum at this point. She remains on Rocephin and doxycycline. Today is day 5 of Rocephin and day 4 of doxycycline. She remains afebrile and her white count is been normal throughout her hospital stay. Blood cultures have shown no growth. She has venous stasis ulcers and her wound cultures growing MSSA. Exam Narrative Exam Narrative: Elderly white female lying in bed alert and oriented person place time circumstance no acute distress able to talk in complete paragraphs without dyspnea. Lungs are clear anteriorly posteriorly she has diminished breath sounds at both bases Heart is regular rate and rhythm Abdomen slightly distended but soft no guarding or rebound tenderness she has diffusely active bowel sounds. Reproducible pain with palpation over the right pelvis Lower extremities trace to 1+ pretibial edema. She has Mepilex bandages over the right and left anterior tibial surfaces as well as over her right ankle. Objective Last Vital Signs Temp 37.3 C 07/29/23 08:44 Pulse 78 07/29/23 08:44 Resp 17 07/29/23 08:44 BP 120/66 07/29/23 08:44 Pulse Ox 95 07/29/23 09:19 Laboratory Results - last 24 hr 07/29/23 06:10 WBC 4.72 RBC 2.96 L Hgb 9.8 L Hct 30.7 L MCV 104 H MCH 33.1 H MCHC 31.9 L RDW 12.7 Plt Count 220 MPV 9.6 Immature Gran % 0.6 Neutrophils % 49.5 Lymphocytes % 18.2 Monocytes % 20.3 Eosinophils % 10.8 Basophils % 0.6 Nucleated RBC % 0.0 Absolute Neutrophils 2.33 Absolute Lymphocytes 0.86 L Absolute Monocytes 0.96 H Absolute Eosinophils 0.51 Absolute Basophils 0.03 Sodium 133 L Potassium 5.3 H Chloride 102 Carbon Dioxide 25.9 Anion Gap 5.1 BUN 12 Creatinine 0.7 Est GFR (CKD-EPI 2020) 86.30 Glucose 99 Calcium 8.6 Magnesium 2.0 PAWSS Have you Been Recently Intoxicated or Drunk Within the Last 30 days?: No Have you Ever Experienced Previous Episodes of Alcohol Withdrawal?: No Have you ever Experienced Withdrawal Seizures?: No Have you ever Experienced Delirium Tremens(DT)s?: No Have you ever undergone Alcohol Rehabilitation Treatment (i.e, inpt ot outpatient treatment programs)?: No Have you ever Experienced Blackouts?: No Have you ever Combined Alcohol with other Downers within the last 90 days?: No Have you ever Combined Alcohol with any other Substance of Abuse during the last 90 days?: No Positive Blood Alcohol level on Presentation? [PCS.BAL]: No Evidence of Increased Autonomic Activity (i.e. HR>120, tremor, sweating, agitation, nausea)?: No Result: 0 Time Spent with Patient Time Spent with Patient: 25-34 minutes Time was spent: preparing to see the patient(eg.review tests), ordering medications,tests, procedures, referring, communicating with other health healthcare applications analyst, indepentently interpreting results, counseling the patient and care coordination
[2023-07-29 15:33] VITALS: BP 122/63; PULSE 90; RESP 17; TEMP 37; O2SAT 94
[2023-07-29] MEDS: Simethicone 80 MG CHEW 160 MG PO ×3 (15:38→20:51)
[2023-07-29] MEDS: Sucralfate 1 GM TAB PO ×2 (16:40→20:52)
[2023-07-29 17:08] VITALS: O2SAT 94
[2023-07-29] MEDS: ceFAZolin 2,000 MG in Normal Saline 100 ML 200 MG IVPB (17:20)
[2023-07-29] MEDS: Lidocaine 5% Patch 1 PATCH TP (18:01)
[2023-07-29 18:23] VITALS: O2SAT 92
[2023-07-29] MEDS: traZODone 100 MG TAB 200 MG PO (20:50)
[2023-07-29] MEDS: QUEtiapine 50 MG TAB PO (20:50)
[2023-07-29] MEDS: hydrOXYzine HCL 25 MG TAB PO (20:51)
[2023-07-29] MEDS: LORazepam 1 MG TAB PO/SL (20:52)
[2023-07-29 22:19] VITALS: BP 125/75; PULSE 108; RESP 16; TEMP 37.6; O2SAT 90
[2023-07-30] VITALS (7 sets, daily range): BP systolic 122–131; BP diastolic 62–83; PULSE 88–97; RESP 18; TEMP 36.9–37.7; O2SAT 87–97
--- NOTE | 2023-07-30 | DI.RAD_ITS ---
Exam(s) XR PORTABLE CHEST AP EXAM: XR PORTABLE CHEST AP CLINICAL HISTORY: follow up pneumonia TECHNIQUE: 2D digital imaging was performed. COMPARISON: CR,XR XR CHEST 2V PA LATERAL from 07/02/[address] CHEST/ABD/PEL WO from 07/25/2023 FINDINGS: Exam limited by poor pulmonary inflation. LUNGS: Underlying interstitial changes. Right upper infiltrate noted. Probable small bilateral pleu ral effusions. HEART: Normal size. AORTA: Normal diameter. BONES: Unremarkable for age. Soft tissues: Hiatal hernia. IMPRESSION: Limited exam. Right upper lobe infiltrate. Small bilateral effusions. DATA REPOSITORY: RADIATION DOSE DELIVERED:
[2023-07-30] MEDS: Normal Saline Flush 10 ML SYR IVP ×4 (00:14→15:44)
[2023-07-30] MEDS: ceFAZolin 2 GM/50 ML BAG IVPB ×3 (00:14→15:46)
[2023-07-30 07:04] LABS: Abs Immature Grans 0.04 10^3/uL (0.0-0.06); Absolute Basophil Count 0.03 10^3/uL (0.0-0.2); Absolute Eosinophil Count 0.39 10^3/uL (0.0-0.7); Absolute Lymphocyte Count 0.92 10^3/uL (1.2-3.4); Absolute Monocyte Count 1.22 10^3/uL (0.1-0.8); Absolute Neutrophil Count 2.82 10^3/uL (1.2-6.7); Basophils % 0.6; Eosinophils % 7.2; HCT 31.8 % (36.0-46.0); HGB 10.3 g/dL (11.2-15.7); Immature Grans % 0.7; MCH 32.9 pg (27.0-33.0); MCHC 32.4 % (32.0-36.0); MCV 102 fL (80-95); MPV 9.5 fL (8.0-11.0); Monocytes % 22.5; Platelet Count 248 10^3/uL (130-400); RBC 3.13 10^6/uL (3.93-5.22); RDW 12.8 % (11.7-14.6); RDW-SD 47.7 fL; WBC 5.42 10^3/uL (4.4-10.8)
[2023-07-30 07:23] LABS: Anion Gap 8.5 mmol/L (3-11); BUN 8 mg/dL (7-18); C-Reactive Protein 8.12 mg/dL (0.0-0.3); CO2 26.5 mmol/L (21.0-32.0); CREATININE 0.7 mg/dL (0.55-1.02); Calcium 8.9 mg/dL (8.5-10.1); Chloride 102 mmol/L (98-107); Glucose 105 mg/dL (74-106); Potassium 4.3 mmol/L (3.5-5.1); Sodium 137 mmol/L (136-145)
[2023-07-30] MEDS: Fluticasone NASAL SPRAY 16 GM BTL NS ×2 (07:23→22:04)
[2023-07-30] MEDS: Simethicone 80 MG CHEW 160 MG PO ×4 (07:24→22:02)
[2023-07-30] MEDS: medroxyPROGESTERone 5 MG TAB 2.5 MG PO (07:25)
[2023-07-30] MEDS: Cholecalciferol (Vitamin D3) 400 UNIT TAB 800 UNIT PO (07:25)
[2023-07-30] MEDS: Esomeprazole 40 MG CAPCR PO ×2 (07:26→20:52)
[2023-07-30] MEDS: DULoxetine 30 MG CAP 60 MG PO (07:27)
[2023-07-30] MEDS: Folic Acid 1 MG TAB PO (07:29)
[2023-07-30] MEDS: DULoxetine 30 MG CAP PO (07:29)
[2023-07-30] MEDS: HYDROcodone 5/Acetaminophen 325 TAB PO ×4 (07:30→15:45)
[2023-07-30] MEDS: Multivitamin TAB 1 TAB PO (07:30)
[2023-07-30] MEDS: Sucralfate 1 GM TAB PO ×4 (07:30→22:04)
[2023-07-30] MEDS: Cyanocobalamin 500 MCG TAB PO (07:31)
[2023-07-30] MEDS: Thiamine 100 MG TAB PO (07:31)
[2023-07-30 07:36] LABS: Iron 18 ug/dL (50-170); Total Iron Binding Capacity 80 ug/dL (250-450); Transferrin Sat 23 % (15-50)
[2023-07-30 08:04] LABS: Ferritin > 2000 ng/mL (8-252)
--- NOTE | 2023-07-30 11:27 | PT.INTREAT ---
PT Notes Visit Reasons: pelvic fracture, pneumonia Inpatient Physical Therapy Treatment Note [facility] Date: 07/30/23 SUBJECTIVE: Elvi states that she is feeling a little better today. Ready to work with PT. OBJECTIVE: []? PAIN:only with wt bearing. VITALS: ? monitored by nursing. Therapeutic Activities ([id number]): Direct one-on-one instruction in dynamic activities to improve functional performance. ? BED MOBILITY/TRANSFERS? Supine-sit: I ? Sit-stand:SBA? Stand-sit:SBA? Bed-Chair: SBA? Provided skilled cues and instruction on performance and technique throughout. ??Cues to slow her decent.? GAIT? Assistive Device:FWW? Weight bearing:AT Assist: SBA ? Distance:? 5' ? Deviation:cues for use UE to decrease wt thru RLE. Performed some seated LAQ, hip ab/add and min march. ? ASSESSMENT:? tolerated session better than yesterday. No c/o stomach issues today. Encouraged Elvi to ambulate more. PLAN: will continue to work on her strength and functional mobility following PT POC. TREATMENT CODE/TIME: 20 min [id number]
[2023-07-30] MEDS: oxyCODONE-CR 10 MG TABCR PO ×2 (12:20→22:03)
--- NOTE | 2023-07-30 13:34 | PGE_ITS ---
Date of Service Date of service: 07/30/23 Time of Service: 13:34 Assessment and Plan Assessment and plan (1) Fractured pelvis: Status: Acute Assessment and plan: WBAT, per ortho. Pain control adjusted with the addition of OxyContin 10 mg twice daily in addition to her hydrocodone. Ketorolac discontinued due to her melanotic stools. Hemoglobin remained stable. Continue GI protection with PPI and Carafate. Continue physical therapy. Will ask case management to look for SNF for this week. Qualifiers: Encounter type: initial encounter Pelvic bone location: pubis Sublocation of pubis: superior rim Fracture type: closed Laterality: right Qualified Code(s): S32.511A - Fracture of superior rim of right pubis, initial encounter for closed fracture (2) Community acquired pneumonia: Status: Acute Assessment and plan: Patient has chronic interstitial lung changes on previous CT scans. She seems to be unaware of a diagnosis of ILD. I will ask pulmonary to evaluate her tomorrow. Not convinced that she ever had a community-acquired pneumonia as she has never had a fever or sputum production. Qualifiers: Laterality: unspecified laterality Qualified Code(s): J18.9 - Pneumonia, unspecified organism (3) T12 compression fracture: Status: Acute Assessment and plan: Pain management as above. Also, add a lidocaine patch. Qualifiers: Encounter type: initial encounter Qualified Code(s): S22.080A - Wedge compression fracture of T11-T12 vertebra, initial encounter for closed fracture (4) Chronic pain disorder: Status: Chronic Assessment and plan: As above (5) Alcohol dependence: Status: Chronic Assessment and plan: patient has been hospitalizes since 07/25 and has not exhibited any acute alcohol withdrawal. CIWA scoring has been discontinued. She remains on folate and thiamine supplements. Qualifiers: Substance use status: uncomplicated Qualified Code(s): F10.20 - Alcohol dependence, uncomplicated (6) Anemia: Status: Chronic Assessment and plan: Anemia of chronic disease. Monitor H/h. No indication for transfusion at this time. ketorolac stopped d/t recent black stools which have normalized now. iron studies are c/w anemia of chronic disease rather than iron deficiency (high ferritin, low serum iron, low TIBC, normal transferrin %). Qualifiers: Anemia type: other cause (7) Gastroesophageal reflux disease: Status: Chronic Assessment and plan: Continue PPI but increase her Nexium to BID and consider adding Carafate to her regimen. Qualifiers: Esophagitis presence: esophagitis presence not specified Qualified Code(s): K21.9 - Gastro-esophageal reflux disease without esophagitis (8) Menopausal disorder: Status: Chronic Assessment and plan: Resume provera (9) Interstitial lung disease: Status: Chronic Assessment and plan: In light of her CT findings of new bilateral patchy ground glass changes, this may be an exacerbation of her underlying ILD. Will ask pulmonary to see her tomorrow to comment on her lung condition and make recommendations regarding further workup/treatment. (10) Skin ulcer of lower leg: Status: Acute Assessment and plan: Wound care consult appreciated. Qualifiers: Laterality: right Non-pressure ulcer stage: unspecified non-pressure ulcer stage Qualified Code(s): L97.919 - Non-pressure chronic ulcer of unspecified part of right lower leg with unspecified severity (11) Laceration of skin of right forearm: Status: Acute Assessment and plan: S/p suturing in the ED. F/u for suture removal in 1 week. Qualifiers: Encounter type: initial encounter Qualified Code(s): S51.811A - Laceration without foreign body of right forearm, initial encounter (12) DVT prophylaxis: Status: Acute Assessment and plan: SC enoxaparin (13) Discharge planning issues: Status: Acute Assessment and plan: Full code Palliative care, PT consulted. Although patient is indicated she is not interested in SNF I think it will be required for her to recuperate well enough to survive at home. Subjective Subjective Interval history since last seen: Patient's pelvic pain has not been well controlled even w/ the scheduled hydrocodone and prn hydrocodone. At team meeting this moring we discussed her pain managment and the pharmacist has recommended use of oxycontin 10 mg bid. Hopefully this will reduce the incidence of her breakthrough pain. She is reconsidering going to SNF for rehab. I explained to her that she has not made great gains in her mobility and she is not going to be ready to return home anytime soon. As for her pneumonia she really has no cough or sputum production. This diagnosis is based on some ground glass changes seen on her CT. She has evidence of chronic ILD on her CT scan. She may have an exacerbation of her ILD and consideration should be given for pulse of steroids. I will repeat her CXR to see if any infiltrates have worsened. If we can not wean her off oxygen or her CXR appears worse then I will consult w/ pulmonary tomorrow to review her images and make recommendations on steroids. Exam Narrative Exam Narrative: Elvi is sitting up in bed no acute respiratory distress she is down to half a liter of oxygen per minute per nasal cannula. She is watching over [place] shows. We talked about her going to rehab and she is reconsidering going to a SNF for further rehab. She denies any cough or sputum production Lungs are clear anteriorly posteriorly I hear bibasilar fine rales no rhonchi or wheezing Heart is regular rate and rhythm Abdomen soft nontender nondistended obese Lower extremities no peripheral edema she has multiple skin ulcers of the pretibial surfaces in the right ankle which are currently covered with Mepilex. Objective Last Vital Signs Temp 37.6 C H 07/29/23 22:19 Pulse 108 H 07/29/23 22:19 Resp 16 07/29/23 22:19 BP 125/75 07/29/23 22:19 Pulse Ox 90 L 07/29/23 22:19 Laboratory Results - last 24 hr 07/30/23 06:00 WBC 5.42 RBC 3.13 L Hgb 10.3 L Hct 31.8 L MCV 102 H MCH 32.9 MCHC 32.4 RDW 12.8 Plt Count 248 MPV 9.5 Immature Gran % 0.7 Neutrophils % 52.0 Lymphocytes % 17.0 Monocytes % 22.5 Eosinophils % 7.2 Basophils % 0.6 Nucleated RBC % 0.0 Absolute Neutrophils 2.82 Absolute Lymphocytes 0.92 L Absolute Monocytes 1.22 H Absolute Eosinophils 0.39 Absolute Basophils 0.03 Sodium 137 Potassium 4.3 D Chloride 102 Carbon Dioxide 26.5 Anion Gap 8.5 BUN 8 Creatinine 0.7 Est GFR (CKD-EPI 2020) 86.30 Glucose 105 Calcium 8.9 Iron 18 L TIBC 80 L Transferrin % Sat 23 Ferritin > 2000 H C-Reactive Protein 8.12 H PAWSS Have you Been Recently Intoxicated or Drunk Within the Last 30 days?: No Have you Ever Experienced Previous Episodes of Alcohol Withdrawal?: No Have you ever Experienced Withdrawal Seizures?: No Have you ever Experienced Delirium Tremens(DT)s?: No Have you ever undergone Alcohol Rehabilitation Treatment (i.e, inpt ot outpatient treatment programs)?: No Have you ever Experienced Blackouts?: No Have you ever Combined Alcohol with other Downers within the last 90 days?: No Have you ever Combined Alcohol with any other Substance of Abuse during the last 90 days?: No Positive Blood Alcohol level on Presentation? [PCS.BAL]: No Evidence of Increased Autonomic Activity (i.e. HR>120, tremor, sweating, agitation, nausea)?: No Result: 0 Time Spent with Patient Time Spent with Patient: 35-49 minutes Time was spent: preparing to see the patient(eg.review tests), ordering medications,tests, procedures, referring, communicating with other health health care social worker, indepentently interpreting results, counseling the patient and care coordination
--- NOTE | 2023-07-30 15:11 | DI.VRAD_ITS ---
PROCEDURE INFORMATION: Exam: XR Chest Exam date and time: 07/30/2023 2:25 PM Age: 82 years old Clinical indication: Other: Follow up pneumonia; Additional info: Follow up pneumonia TECHNIQUE: Imaging protocol: Radiologic exam of the chest. Views: 1 view. COMPARISON: CT CHEST/ABD/PEL WO 12/30/2022 17:20 FINDINGS: Lungs: Persistent patchy right upper lobe and right lower lobe infiltrate. Patchy left lower lobe infiltrate. Pleural spaces: Blunted left costophrenic angle consistent with pleural effusion. Heart/Mediastinum: Prominent cardiac silhouette. Vasculature: Atherosclerotic disease. Bones/joints: Advanced degenerative changes of the shoulders. Multilevel degenerative changes of the spine. IMPRESSION: Persistent bilateral infiltrates. Dictated and Authenticated by: Kateryna Pink MD. Ordering:[facility] Jules Sparks MD
[2023-07-30] MEDS: LORazepam 0.5 MG TAB PO (19:21)
[2023-07-30] MEDS: traZODone 100 MG TAB 200 MG PO (20:51)
[2023-07-30] MEDS: QUEtiapine 50 MG TAB PO (20:51)
[2023-07-30] MEDS: Enoxaparin 40 MG/0.4 ML SYR SC (22:02)
[2023-07-31] MEDS: ceFAZolin 2 GM/50 ML BAG IVPB ×3 (00:31→16:15)
--- NOTE | 2023-07-31 07:34 | W.PULMCON ---
General Date Of Service Date of service: 07/31/23 Time of Service: 07:34 Reason for Consult: ILD Assessment and Plan Assessment and plan (1) NSIP (nonspecific interstitial pneumonia): Status: Acute Assessment and plan: This is a 82 yo admitted to the hospital for a pelvis fracture. I was consulted due to the finding of ILD on chest CT. She has ILD that dates back at least 14 years ago. Her chest CT from 2019 does not shows the GGO's seen on the current scan. She has a hip fracture and is on room air with no increased respiratory symptoms. Given these factors, I would not recommend steroid therapy to target a possible ILD flare. The pattern of her ILD is most consistent with NSIP, which can have GGO's as a part of this process. Given the mild to moderate involvement, her age and symptoms, I do not believe she is a good anti-fibrotic candidate, but I will rule out autoimmune disease as well as get a hypersensitivity panel to begin initial work up of this. I will also get her established in my clinic to monitor her ILD. NSIP - recommend against steroids currently - AKIKO, RF, anti-CCP - hypersensitivity panel - will establish care with me as an outpatient. History of Present Illness Narrative: This is a 82 yo admitted to the hospital for hip fracture found to have ILD incidentally found. She states she has never been told that she has has ILD but states previously a doctor told her that her lungs are small, and I do wonder if this was truly restriction being explained to her. She is not overly active so does not notice dyspnea, however states she cannot take deep breaths. She sometimes has a cough. The furthest back in chest imaging I can view is from 2009. This CXR does not show obvious ILD but a CT from this time does show its presence. She did have PFT's in 2013 which found restrictive lung disease with a TLC of 69%, and a DLCO of 52% She denies history of autoimmune disease. She also denies exposures, however notes a dirt floor basement and the possibility of mold. Review of Systems All systems reviewed & are unremarkable except as noted in HPI and below PFSH All Active Problems (Updated 07/31/23 @ 11:04 by Dorita Denise MD) NSIP (nonspecific interstitial pneumonia) (Acute) Fracture of right inferior pubic ramus (Acute) Fracture of right superior pubic ramus (Acute) ACP (advance care planning) (Acute) Alcohol use disorder (Acute) Laceration of skin of right forearm (Acute) Skin ulcer of lower leg (Acute) Discharge planning issues (Acute) DVT prophylaxis (Acute) Interstitial lung disease (Chronic) Laceration of arm, right, complicated (Acute) Fractured pelvis (Acute) Community acquired pneumonia (Acute) T12 compression fracture (Acute) Acute exacerbation of chronic low back pain (Acute) Full code status (Acute) E. 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 fell down and could not get up Hypertension (Chronic) with labile blood pressure. Morbid obesity (Chronic) Allergic rhinitis (Chronic) Hyperlipidemia (Chronic) History of anemia (Chronic) Fibromyalgia (Chronic) DJD (degenerative joint disease) (Chronic) Chronic depression (Chronic) Insomnia (Chronic) Gastroesophageal reflux disease (Chronic) Hiatal hernia (Chronic) Irritable bowel syndrome (Chronic) History of surgery (Chronic) a. S/P open right ankle fracture/dislocation. b. Left knee arthroscopy. c. Right wrist fracture repair. d. T/A as a child. Dehydration, mild (Acute 09/22/14) Housing or economic circumstance (Chronic 09/22/14) a. No heat for 1-1/2 days H/O fall (Chronic) Anemia (Chronic) Person living alone (Chronic 09/22/14) Alcohol withdrawal delirium (Acute 09/22/14) Rhabdomyolysis (Acute 09/22/14) Alcohol dependence (Chronic) Ataxia (Chronic) COPD (chronic obstructive pulmonary disease) (Chronic) Onychomycosis (Chronic) Depression (Chronic) Medical History Palliative care encounter Hiatal hernia IBS (irritable bowel syndrome) Hypertension Allergic rhinitis GERD (gastroesophageal reflux disease) DJD (degenerative joint disease) Hyperlipidemia Hypercholesterolemia Fibromyalgia Depression Anemia Alcohol abuse Insomnia Surgical History Tonsillectomy and adenoidectomy Repair fracture right wrist ORIF right ankle Colonoscopy - MAC (11/18/16) Arthroplasty of knee left Family History Mother Dementia Maternal Aunt Diabetes Social History Smoking/Tobacco Use Status: Former Tobacco Use Smoking risk assessment performed?: Yes Alcohol Intake: current Alcohol Intake frequency: 0-2 drinks per day Alcohol type: wine Counseling given: Yes Details: 1-2 bottle of wine/day Drug use: Daily Substance use type: does not use and marijuana Details: two tokes for sleep Housing: house Do you feel safe at home: Yes Do you feel safe in your relationship?: Yes Additional Social history: Lives alone in home in [facility], has a cat. States hasn't been out of house for a year. One sister in [place] Visit Medication and Allergies Active Medications Generic Name Dose Route Start Last Admin Trade Name Freq PRN Reason Stop Dose Admin Hydrocodone Bitart/Acetaminophen 1 tab 07/28/23 16:49 07/30/23 10:40 Hydrocodone 5/Acetaminophen 325 Tab PO 1 tab Q4H PRN PRN Administration Albuterol Sulfate 2 puff 07/25/23 20:46 Albuterol Hfa 8 Gm 60 Puff Inh IH Q4H PRN PRN Cholecalciferol 800 unit 07/26/23 08:30 07/30/23 07:25 Cholecalciferol (Vitamin D3) 400 Unit Tab PO 800 unit DAILY MARI Administration Clotrimazole 0 gm 07/26/23 08:30 07/30/23 21:19 Clotrimazole 1% 15 Gm Tube TP Not Given BID MARI Cyanocobalamin 500 mcg 07/28/23 08:30 07/30/23 07:31 Cyanocobalamin 500 Mcg Tab PO 500 mcg DAILY MARI Administration Cyclosporine 0.4 ml 07/30/23 20:00 07/30/23 20:52 Cyclosporine 0.4 Ml Ophth Vial OU 1 drp BID MARI Administration Device 1 each 07/25/23 21:00 Inhaler, Assist Device MC DIRECTED MARI Duloxetine HCl 60 mg 07/26/23 08:30 07/30/23 07:27 Duloxetine 30 Mg Cap PO 60 mg DAILY MARI Administration Duloxetine HCl 30 mg 07/26/23 08:30 07/30/23 07:29 Duloxetine 30 Mg Cap PO 30 mg DAILY MARI Administration Enoxaparin Sodium 40 mg 07/25/23 22:00 07/30/23 22:02 Enoxaparin 40 Mg/0.4 Ml Syr SC 40 mg Q24H MARI Administration Esomeprazole Magnesium 40 mg 07/29/23 20:00 07/30/23 20:52 Esomeprazole 40 Mg Capcr PO 40 mg BID@0730,2000 MARI Administration Fluticasone Propionate 1 gm 07/26/23 08:30 07/30/23 22:04 Fluticasone Nasal [place] 16 Gm Btl NS 1 spr BID MARI Administration Folic Acid 1 mg 07/26/23 08:30 07/30/23 07:29 Folic Acid 1 Mg Tab PO 08/01/23 08:31 1 mg QAM MARI Administration Sodium Chloride 500 mls @ 0 mls/hr 07/26/23 08:30 Saline 500ml Bag IV DIRECTED PRN As Directed Cefazolin Sodium/Dextrose 2 gm in 50 mls @ 100 mls/hr 07/30/23 00:00 07/31/23 00:31 Ancef Duplex IVPB 100 mls/hr Q8H MARI Administration IV Miscellaneous Supplies 1 each 07/26/23 08:30 Iv Access IV DIRECTED MARI Lidocaine 1 patch 07/28/23 18:00 07/30/23 17:08 Lidocaine 5% Patch TP Not Given Q24H ON LICENSE OF [facility] Medroxyprogesterone Acetate 2.5 mg 07/29/23 08:30 07/30/23 07:25 Medroxyprogesterone 5 Mg Tab PO 2.5 mg DAILY MARI Administration Miscellaneous 1 each 07/29/23 08:00 07/30/23 07:44 Patch Removal(Lidocaine) TP 1 each DAILY@0800 MARI Administration Multivitamins 1 tab 07/26/23 08:30 07/30/23 07:30 Multivitamin Tab PO 08/01/23 08:31 1 tab QAM MARI Administration Oxycodone HCl 10 mg 07/30/23 22:00 07/30/23 22:03 Oxycodone-Cr 10 Mg Tabcr PO 10 mg Q12H MARI Administration Pt's Own Glucosamine 0.5 each 07/26/23 08:30 07/31/23 00:57 Sulfate 2kcl 1,000 PO Not Given Mg Tablet BID MARI Quetiapine Fumarate 50 mg 07/25/23 22:00 07/30/23 20:51 Quetiapine 50 Mg Tab PO 50 mg QPM MARI Administration Simethicone 160 mg 07/30/23 07:30 07/30/23 22:02 Simethicone 80 Mg Chew PO 160 mg AC & HS MARI Administration Sodium Chloride 0 ml 07/25/23 18:47 Normal Saline 10 Ml Vial IJ DIRECTED PRN Sodium Chloride 0 ml 07/26/23 08:30 07/30/23 15:44 Normal Saline Flush 10 Ml Syr IVP 10 ml PRN PRN Administration Sodium Chloride 0 ml 07/26/23 20:00 07/31/23 00:22 Normal Saline Flush 10 Ml Syr IV Not Given BID MARI Sucralfate 1 gm 07/29/23 16:30 07/30/23 22:04 Sucralfate 1 Gm Tab PO 1 gm AC & HS MARI Administration Thiamine HCl 100 mg 07/26/23 08:30 07/30/23 07:31 Thiamine 100 Mg Tab PO 08/01/23 08:31 100 mg QAM MARI Administration Trazodone HCl 200 mg 07/29/23 20:00 07/30/23 20:51 Trazodone 100 Mg Tab PO 200 mg 2000 MARI Administration Allergies fentanyl Adverse Reaction (Verified 05/03/22 13:21) Exam Narrative Exam Narrative: Gen: NAD, normal respiratory effort, well-nourished HENT: PERRL, nasal turbinates normal without erythema or inflammation, moist oral mucosa, Mallampati 2, No LAD or JVD Chest: No respiratory distress, normal appearance of chest, clear to auscultation bilaterally, no crackles or wheezes, normal inspiratory effort Heart: regular rate and rhythym, no murmurs, rubs or gallops Abdomen: Non-distended, soft, non tender Extremities: No clubbing, edema, cyanosis, rashes Neuro: AAOx3 , non focal Psych: cooperative, appropriate mental affect Results Last Vital Signs Temp 36.9 C 07/30/23 22:16 Pulse 97 H 07/30/23 22:16 Resp 18 07/30/23 22:16 BP 131/62 07/30/23 22:16 Pulse Ox 90 L 07/30/23 22:16 Labs 07/30/23 06:00 07/30/23 06:00 Labs: Laboratory Results - last 24 hr 07/30/23 06:00 Iron 18 L TIBC 80 L Transferrin % Sat 23 Ferritin > 2000 H
[2023-07-31 07:35] VITALS: BP 125/81; PULSE 95; RESP 16; TEMP 37.2; O2SAT 91
[2023-07-31 07:40] VITALS: O2SAT 92
[2023-07-31] MEDS: Fluticasone NASAL SPRAY 16 GM BTL NS ×2 (07:53→19:46)
[2023-07-31] MEDS: Simethicone 80 MG CHEW 160 MG PO ×3 (07:54→16:15)
[2023-07-31] MEDS: medroxyPROGESTERone 5 MG TAB 2.5 MG PO (07:55)
[2023-07-31] MEDS: Cholecalciferol (Vitamin D3) 400 UNIT TAB 800 UNIT PO (07:55)
[2023-07-31] MEDS: Esomeprazole 40 MG CAPCR PO ×2 (07:55→19:51)
[2023-07-31] MEDS: DULoxetine 30 MG CAP 60 MG PO (07:56)
[2023-07-31] MEDS: DULoxetine 30 MG CAP PO (07:57)
[2023-07-31] MEDS: Sucralfate 1 GM TAB PO ×4 (07:57→23:04)
[2023-07-31] MEDS: Multivitamin TAB 1 TAB PO (07:58)
[2023-07-31] MEDS: Thiamine 100 MG TAB PO (07:58)
[2023-07-31] MEDS: Cyanocobalamin 500 MCG TAB PO (07:58)
[2023-07-31] MEDS: Folic Acid 1 MG TAB PO (07:59)
[2023-07-31] MEDS: Normal Saline Flush 10 ML SYR IVP (08:00)
[2023-07-31] MEDS: Normal Saline Flush 10 ML SYR IV ×2 (08:17→19:50)
[2023-07-31] MEDS: HYDROcodone 5/Acetaminophen 325 TAB PO (09:05)
--- NOTE | 2023-07-31 09:26 | CMPROGNOTE_ITS ---
Date of service: 07/31/23 Time of Service: 09:26 Care Management Progress Note Progress Note Text Progress Note Text: S/O: Elvi was sitting up in her chair when CM met with her. She stated that she feels that she is constantly battling her pain, in order to move. She reported that today she was able to move from the bed to the chair with PT. CM celebrated that accomplishment with her, as even small amounts of movement are encouraged by PT. CM discussed SNF options with her; [facility] remains closed to admissions, but there are [facility] available at [facility], [facility] and [facility]. Elvi stated that [facility] would be the closest out of those facilities, and she will consider going there. [facility] is her first choice; awaiting a call back from admissions. CM will continue to follow. A: Elvi is an 82 year old female admitted to [facility] on 07/26/23 for pelvic fracture, pneumonia. P: Elvi will be evaluated by PT today which will help determine her discharge. Her transportation will likely be private vehicle via a friend vs RCT. She will follow up with her PCP and discharge plan of care. CM will continue to follow.
[2023-07-31] MEDS: oxyCODONE-CR 10 MG TABCR PO ×2 (09:54→23:04)
[2023-07-31 10:28] LABS: Transferrin 87 mg/dL (201-352)
--- NOTE | 2023-07-31 11:04 | PTTR_ITS ---
Date of service: 07/31/23 Time of Service: 10:27 PT Notes Visit Reasons: pelvic fracture, pneumonia Inpatient Physical Therapy Treatment Note [facility] Date: 07/31/23 PRECAUTIONS: Fall, standard, activity as tolerated. PREMEDICATE FOR PAIN BEFORE THERAPY. SUBJECTIVE: Patient reports a lot of pain today, which she states is different from the pain of the fracture. OBJECTIVE: Supine in bed, pillow under right trunk, pillow under right hip, pillow under right knee. PureWick in place. Agreeable to therapy.? PAIN: Significant. Pain over fracture sight with weight bearing, worsens significantly in SLS on either side. Pain in buttock, extending down back of thigh and into knee when sitting. VITALS: monitored by nursing staff. ? BED MOBILITY/TRANSFERS? Rolling L/R: not assessed Supine-sit: modified independent with HOB elevated, bilateral grab bars, additional time.? Sit-supine: not assessed ? Sit-stand: min assist at gait belt to help patient lift, maintain balance.? Stand-sit: min assist to control descent? Bed-Chair: CGA? Chair-bed: CGA ? Therapeutic Exercises ([id number]): Direct one-on-one instruction in therapeutic exercises to develop strength, endurance, range of motion and flexibility. ? Exercises: * sit to stand x4 * weight shifting x5 Ambulation ? Assistive Device: FWW ? Weight bearing: WBAT Assist: CGA, verbal cues to shift weight into arms for additional support.? Distance:? 5'? Deviation: Wide AUSTEN, slow roly, reduced stride length of 1/2 length of foot, reduced step height (shuffling). Step length increases when patient is cued to push weight through arms. ? Provided skilled instruction in proper exercise performance Provided skilled manual cues to facilitate proper muscle recruitment and/or form. Neuromuscular Re-education ([id number]): Activities that facilitate re-education of movement balance, posture, coordination, and proprioception or kinesthetic sense, requiring skilled tactile and verbal cues ? Exercises/techniques: * seated sciatic nerve flossing 2x10 with cues for accurate and safe performance. Patient reports an immediate reduction in sciatica-like symptoms. ASSESSMENT:? Patient tolerates therapy well, although she reports being frustrated with her continued pain and slow progress. PLAN: Continue global strengthening per plan of care. Per DPT Kelsey Skelton, reduce frequency of treatment to 1x per day. TREATMENT CODE/TIME: 35 minutes beginning at 10:27
--- NOTE | 2023-07-31 11:26 | PGE_ITS ---
Date of Service Date of service: 07/31/23 Time of Service: 11:26 Assessment and Plan Assessment and plan (1) Fractured pelvis: Status: Acute Assessment and plan: WBAT, per ortho. Pain control adjusted with the addition of OxyContin 10 mg twice daily in addition to her hydrocodone. Ketorolac discontinued due to her melanotic stools. Hemoglobin remained stable. Continue GI protection with PPI and Carafate. Continue physical therapy. Will ask case management to look for SNF for this week. Qualifiers: Encounter type: initial encounter Pelvic bone location: pubis Sublocation of pubis: superior rim Fracture type: closed Laterality: right Qualified Code(s): S32.511A - Fracture of superior rim of right pubis, initial encounter for closed fracture (2) Skin ulcer of lower leg: Status: Acute Assessment and plan: wounds growing MSSA, patient now on Ancef 2 gm IV q8h day #2, will treat for 2 weeks but when ready for discharge can transition to keflex Qualifiers: Laterality: right Non-pressure ulcer stage: unspecified non-pressure ulcer stage Qualified Code(s): L97.919 - Non-pressure chronic ulcer of unspecified part of right lower leg with unspecified severity (3) Infection of wound due to methicillin resistant Staphylococcus aureus (MRSA): Status: Acute Assessment and plan: Day#2 Ancef, wound care consult. When ready for dc to SNF will change to Keflex (4) T12 compression fracture: Status: Acute Assessment and plan: Pain management as above. Also, add a lidocaine patch. Qualifiers: Encounter type: initial encounter Qualified Code(s): S22.080A - Wedge compression fracture of T11-T12 vertebra, initial encounter for closed fracture (5) Chronic pain disorder: Status: Chronic Assessment and plan: As above. Gabapentin 100 mg tid added to her pain control regimen. (6) Alcohol dependence: Status: Chronic Assessment and plan: Patient developed symptoms of acute alcohol withdrawal yesterday afternoon after I originally saw her in the morning and was agitated, wringing her hands, diaphoretic, anxious. She responded well to the loading dose of phenobarbital 10 mg/kg and is much calmer today. continue to monitor w/ RASS and CIWA and use prn phenobarbital. She has received total of 640 mg. Her IBW is 63 kg, therefore her soft stop is 15 mg/kg or 945 mg and her hard stop is 20 mg/kg or 1260 mg. She is already on thiamine and folic acid Qualifiers: Substance use status: uncomplicated Qualified Code(s): F10.20 - Alcohol dependence, uncomplicated (7) Alcohol withdrawal: Status: Acute Qualifiers: Complication of substance-induced condition: uncomplicated Qualified Code(s): F10.930 - Alcohol use, unspecified with withdrawal, uncomplicated (8) Anemia: Status: Chronic Assessment and plan: Anemia of chronic disease. Monitor H/h. No indication for transfusion at this time. ketorolac stopped d/t recent black stools which have normalized now. iron studies are c/w anemia of chronic disease rather than iron deficiency (high ferritin, low serum iron, low TIBC, normal transferrin %). Qualifiers: Anemia type: other cause Qualified Code(s): D63.8 - Anemia in other chronic diseases classified elsewhere (9) Gastroesophageal reflux disease: Status: Chronic Assessment and plan: Continue PPI but increase her Nexium to BID and consider adding Carafate to her regimen. Qualifiers: Esophagitis presence: esophagitis presence not specified Qualified Code(s): K21.9 - Gastro-esophageal reflux disease without esophagitis (10) Menopausal disorder: Status: Chronic Assessment and plan: Resume provera (11) Interstitial lung disease: Status: Chronic Assessment and plan: Dr. Denise does not believe that her current condition represents an ILD flare as she is not hypoxemic nor increased cough. She is working her up for autoimmune disease and setting follow up in pulmonary clinic (12) Laceration of skin of right forearm: Status: Acute Assessment and plan: S/p suturing in the ED. F/u for suture removal in 1 week. Qualifiers: Encounter type: initial encounter Qualified Code(s): S51.811A - Laceration without foreign body of right forearm, initial encounter (13) DVT prophylaxis: Status: Acute Assessment and plan: SC enoxaparin (14) Discharge planning issues: Status: Acute Assessment and plan: Full code Palliative care, PT consulted. patient now agreeble to consider SNF as she realizes she can not return home immediately Subjective Subjective Interval history since last seen: Elvi states that her anxiety is much better since she was begun on phenobarbital loading last night. CIWA scores are [address] Denise saw the patient and has reviewed her CT scans. Patient has had radiologic findings of ILD dating back to 2013. Dr. Denise has begun workup for autoimmune disease and will have her follow up in the pulmonary clinic. Exam Narrative Exam Narrative: Elvi is alert, she is complaining of sciatica w/ a different pain than that from her pubic rami fractures. Lungs: fine rales at bases, otherwise clear Heart: RRR Abdomen: obese, soft, nontender Legs: she has Mepilex over her sores on her legs, the erythema has improved in her legs Pelvis/hip: still some tenderness over her right pelvis, but now she is complaining of pain in her right sciatic notch area w/ radiation down the back of her right leg Objective Last Vital Signs Temp 37.2 C 07/31/23 07:35 Pulse 95 H 07/31/23 07:35 Resp 16 07/31/23 07:35 BP 125/81 07/31/23 07:35 Pulse Ox 92 07/31/23 07:40 Laboratory Results - last 24 hr 07/27/23 11:47 Ur Strep pneumoniae Ag Negative Reviewed Pertinent PMH: Yes Objective Narrative Objective Narrative: CT pelvis on admission c/w right superior and inferior pelvic rami fractures and new T12 compression fractures Review of prior CT of her thoracic and LS spine from 03/19/22 demonstrated T8, T6, and T12 compression fractures but no lumbar fractures and no spinal canal stenosis. Subsequent CT of thoracic and lumbar spine from 05/03/22 showed no signficant changes. PAWSS Have you Been Recently Intoxicated or Drunk Within the Last 30 days?: No Have you Ever Experienced Previous Episodes of Alcohol Withdrawal?: No Have you ever Experienced Withdrawal Seizures?: No Have you ever Experienced Delirium Tremens(DT)s?: No Have you ever undergone Alcohol Rehabilitation Treatment (i.e, inpt ot outpatient treatment programs)?: No Have you ever Experienced Blackouts?: No Have you ever Combined Alcohol with other Downers within the last 90 days?: No Have you ever Combined Alcohol with any other Substance of Abuse during the last 90 days?: No Positive Blood Alcohol level on Presentation? [PCS.BAL]: No Evidence of Increased Autonomic Activity (i.e. HR>120, tremor, sweating, agitation, nausea)?: No Result: 0 Time Spent with Patient Time Spent with Patient: 35-49 minutes Time was spent: preparing to see the patient(eg.review tests), ordering medications,tests, procedures, referring, communicating with other health healthcare representative, indepentently interpreting results, counseling the patient and care coordination
[2023-07-31] MEDS: Gabapentin 100 MG CAP PO ×2 (13:35→19:51)
[2023-07-31 15:28] VITALS: BP 110/74; PULSE 87; RESP 18; TEMP 36.6; O2SAT 89
[2023-07-31 16:22] LABS: Vitamin D 25 Total 56.5 ng/mL (30-100)
[2023-07-31 19:43] VITALS: BP 111/71; PULSE 88; RESP 18; TEMP 37.3; O2SAT 92
[2023-07-31] MEDS: traZODone 100 MG TAB 200 MG PO (19:51)
[2023-07-31] MEDS: QUEtiapine 50 MG TAB PO (19:51)
[2023-07-31] MEDS: Enoxaparin 40 MG/0.4 ML SYR SC (23:04)
[2023-07-31 23:08] VITALS: BP 112/7; PULSE 89; RESP 18; TEMP 37.6; O2SAT 85
[2023-08-01] MEDS: ceFAZolin 2 GM/50 ML BAG IVPB ×2 (00:24→08:52)
[2023-08-01 04:03] VITALS: BP 112/67; PULSE 87; RESP 18; TEMP 37.3; O2SAT 94
[2023-08-01 07:00] LABS: Abs Immature Grans 0.05 10^3/uL (0.0-0.06); Absolute Basophil Count 0.05 10^3/uL (0.0-0.2); Absolute Lymphocyte Count 1.58 10^3/uL (1.2-3.4); Absolute Monocyte Count 1.12 10^3/uL (0.1-0.8); Absolute Neutrophil Count 2.85 10^3/uL (1.2-6.7); Basophils % 0.8; Eosinophils % 8.1; HCT 29.2 % (36.0-46.0); HGB 9.5 g/dL (11.2-15.7); Immature Grans % 0.8; Lymphocytes % 25.7; MCH 33.1 pg (27.0-33.0); MCHC 32.5 % (32.0-36.0); MCV 102 fL (80-95); MPV 9.5 fL (8.0-11.0); Monocytes % 18.2; Neutrophils % 46.4; Platelet Count 278 10^3/uL (130-400); RBC 2.87 10^6/uL (3.93-5.22); RDW 12.6 % (11.7-14.6); RDW-SD 46.8 fL; WBC 6.15 10^3/uL (4.4-10.8)
[2023-08-01 07:13] VITALS: BP 120/71; PULSE 88; RESP 18; TEMP 37.1; O2SAT 93
[2023-08-01 07:20] LABS: ALT 9 U/L (14-59); AST 20 U/L (15-37); Albumin 2.1 g/dL (3.4-5.0); Alkaline Phosphatase 85 U/L (46-116); Anion Gap 5.5 mmol/L (3-11); BUN 7 mg/dL (7-18); Bilirubin, Total 0.5 mg/dL (0.2-1.0); C-Reactive Protein 7.74 mg/dL (0.0-0.3); CO2 29.5 mmol/L (21.0-32.0); CREATININE 0.7 mg/dL (0.55-1.02); Calcium 8.5 mg/dL (8.5-10.1); Chloride 102 mmol/L (98-107); Glucose 94 mg/dL (74-106); Magnesium 1.8 mg/dL (1.8-2.4); Potassium 3.3 mmol/L (3.5-5.1); Sodium 137 mmol/L (136-145); Total Protein 6.1 g/dL (6.4-8.2)
[2023-08-01 08:05] VITALS: O2SAT 95
[2023-08-01] MEDS: Folic Acid 1 MG TAB PO (08:55)
[2023-08-01] MEDS: Esomeprazole 40 MG CAPCR PO ×2 (08:56→20:39)
[2023-08-01] MEDS: Multivitamin TAB 1 TAB PO (08:56)
[2023-08-01] MEDS: Gabapentin 100 MG CAP PO ×3 (08:56→20:38)
[2023-08-01] MEDS: DULoxetine 30 MG CAP PO (08:56)
[2023-08-01] MEDS: DULoxetine 30 MG CAP 60 MG PO (08:57)
[2023-08-01] MEDS: Cholecalciferol (Vitamin D3) 400 UNIT TAB 800 UNIT PO (08:58)
[2023-08-01] MEDS: Thiamine 100 MG TAB PO (08:58)
[2023-08-01] MEDS: Cyanocobalamin 500 MCG TAB PO (08:58)
[2023-08-01] MEDS: Sucralfate 1 GM TAB PO ×4 (08:58→22:00)
[2023-08-01] MEDS: medroxyPROGESTERone 5 MG TAB 2.5 MG PO (08:59)
[2023-08-01] MEDS: Simethicone 80 MG CHEW 160 MG PO ×4 (09:02→22:00)
[2023-08-01] MEDS: Normal Saline Flush 10 ML SYR IV (09:03)
[2023-08-01] MEDS: oxyCODONE-CR 10 MG TABCR PO ×2 (09:08→22:00)
[2023-08-01] MEDS: Clotrimazole 1% 15 GM TUBE TP (09:09)
[2023-08-01] MEDS: Fluticasone NASAL SPRAY 16 GM BTL NS (09:09)
[2023-08-01 09:49] LABS: Cyclic Citrullinated Peptide <2.5 U/mL (<5.0)
[2023-08-01] MEDS: HYDROcodone 5/Acetaminophen 325 TAB PO ×2 (09:59→14:43)
--- NOTE | 2023-08-01 10:05 | W.PALPGNOTE ---
Date of service: 08/01/23 Time of Service: 14:30 Assessment and Plan Assessment and plan (1) Palliative care encounter: Status: Acute Assessment and plan: Tylenol EtOH counseling. (2) ACP (advance care planning): Status: Acute Assessment and plan: Advanced directive on file reviewed and discussed. Goals of care explored as documented in HPI. I recommended that we write up a new healthcare agent form given that her alternate agent has unfortunately . This was done see scanned in form (Marzena Gardiner sister as healthcare agent, friend Iesha Spangler is alternate, friend Mony Frye can also participate in healthcare decisions.) We discussed the procedure of CPaR, actual mechanical process, rate of success in restoring heartbeat, short and long-term side effects in survivors (including likely decreased physical and cognitive functioning). Questions were answered. Patient was very clear that I do not want to be on machines and I do not want CPR . I explored to make sure she understood what this meant she was able to tell me about her discussion with Hailey Collier OIL FIELD PUMPER last week. She does not think that she wants CPR and if she her heart stops, she would just like to be made comfortable. Would never want to be on a ventilator. She does still want to be evaluated, transferred to the hospital for evaluation and treatment, received IV fluids and IV antibiotics. She is not sure about a feeding tube. She is really does not want to be on any machines . Brief discussion about dialysis, she felt that since a dialysis machine would only be several hours 3 days a week, she would consider this. Just does not want to be on the machine all the time . COLST form was completed reflecting this statement. Patient will be given copy of the original HCA and COLST forms. Forms will be scanned into [employer] system. Verbal discussion with hospitalist regarding change CODE STATUS. 16 to 30 minutes spent today on Advance Care Planning. Patient and family participated voluntarily. Advance care planning may include (not limited to) explanation and discussion of advance directives, choosing and appointing healthcare agents, alternatives to various ACP tools, discussion of (and if indicated, completion of) COLST form, discussion of patient's values and overall goals for treatment, palliative and disease directive care options, ways to avoid hospital readmission including hospice discussions, care preferences should the patient's several other adverse health events.See today's palliative care note for additional information. (3) Frequent falls: Status: Acute Assessment and plan: Patient with frequent falls. She says she has had very poor balance for almost 30 years. She attributes this to her fibromyalgia. Over the last 2 years she mostly ambulates in a wheelchair. She can use a walker when she needs to.She is somewhat vague about the last time she had outpatient PT evaluation or treatment. Regarding use of multiple sedating medications, it appears that her PCP is aware. I note that she likes that phenobarbital was added to her medications in hopes to go home on this, thus adding yet another sedating medication. I discussed with her that alcohol use can affect balance even when someone is not intoxicated. She countered that she is sure that the imbalance is from her fibromyalgia and alcohol has no role in this. Recommend: -PCP review meds once patient is outpatient has recovered from pelvic fracture. Consider deprescribing 1 or more of sedating medications that she is currently on. This is especially urgent if she continues to use alcohol. I would strongly recommend considering completely deprescribing all opiate once she has recovered from her fracture. -Continue physical therapy as an outpatient. (4) Fractured pelvis: Status: Acute Qualifiers: Encounter type: initial encounter Fracture type: closed Laterality: right Pelvic bone location: pubis Sublocation of pubis: superior rim Qualified Code(s): S32.511A - Fracture of superior rim of right pubis, initial encounter for closed fracture (5) Community acquired pneumonia: Status: Ruled-out Qualifiers: Laterality: unspecified laterality Qualified Code(s): J18.9 - Pneumonia, unspecified organism (6) Chronic pain: Status: Chronic Assessment and plan: Recommend adding scheduled Tylenol 650 mg 2-3 times a day. Agree with addition of gabapentin to her regimen. (7) DNR (do not resuscitate): Status: Acute (8) Alcohol use disorder: Status: Acute Assessment and plan: Patient reports that she drinks a very large bottle of wine daily for the last 3 years. Prior to that she did not drink so much. Somewhat tangential about her past history. Has been unwilling to stop drinking over the last 3 years because she gets shaky if she tries to stop. She says she is still getting shakes in the afternoon. Is happy that she is still taking phenobarbital to help with the symptoms. When asked if she thinks she will be able to maintain sobriety as an outpatient, she says she is not sure yet, I have more important things to worry about like getting this pelvic fracture pain better . She thinks she may well start drinking again as she enjoys drinking wine. She points out that I do not have any damage, I do not have cirrhosis as per lab work , and she is certain that her balance is not from her alcohol use. She has never felt that she drank too much or should seek help for her drinking. Patient appears to be in pre-contemplative stage as far as stopping drinking alcohol after discharge. She declines any suggestion to talk with her PCP after discharge about this or to consider any kind of counseling. I shared my concern that given that this is her second hospitalization in 3 months, that she had fairly symptomatic alcohol withdrawal syndrome during this admission, that I think her alcohol use contributed to her fall, I think that the drinking is harming her health and is jeopardizing her chance of continuing to live independently at home. I encouraged her to think about this and follow-up with her PCP. Discussed with patient whether it would be okay to schedule follow-up with palliative care team with her. She agrees to home visit in 2 months to follow-up on all the subjects discussed above. Subjective Subjective Interval history since last seen: Elvi Mcgowan is an 82-year-old woman currently inpatient at [facility] after falling, incurring a pelvic fracture , developing pneumonia and then subsequently having alcohol withdrawal at the beginning of her hospital admission. Other medical problems include interstitial lung disease, chronic low back pain, fibromyalgia, COPD. She is also 3-month status post T12 compression fracture after a fall April (admitted to [facility] for several days at that time, declined [facility] referral after discharge) Chronic pain,fibromyalgia: -Patient has history of chronic low back pain -Patient on duloxetine total of 90 mg daily (mentions she was previously on fluoxetine and felt she needed a change) -Pain medications prior to this admission: Hydrocodone (taking since 1994 for fibromyalgia, prior to this admission was allowed to take 4 pills a day but usually took about 3 pills a day). As inpatient, just started on oxycontin 10 BID plus addl Lidoderm patch -Was receiving ketorolac. Stopped because of black stools and anemia. -Gabapentin 100 mg 3 times daily has been added the last few days. -Not currently getting any Tylenol. Advance care planning: -At visit last week with Hailey Collier NP, patient requested extra time to think about CODE STATUS and would like to follow-up regarding that today. Falls, weakness, frailty: -Previous notes mention that she is on multiple sedating medications long-term in addition to opioid. Other sedating medications on list: Quetiapine 50 mg at bedtime, trazodone 200 mg at bedtime, baclofen 5 mg 3 times daily, diazepam 2 mg 3 times daily (unsure if this is accurate) -Patient has agreed to go to short-term subacute rehab. -Using wheelchair to get around for years due to fibromyalgia. Used to do pool therapy. -Does not answer when she last did any PT. EtOH -Patient required medications as per CIWA scale for her for several days of admission. Now scoring 0. Phenobarbital has been started and notes as this is helpful (and other sedating medication -Notes that she gets sxs again every afternoon since admission, (shakes and anxiety). -Usual habit is one bottle of wine daily. Had been doing this for a few years. Used to drink for enjoyment and now drinking to prevent withdrawal. -Before two years ago was not an alcoholic. Just drank occasionally. -Not sure that she is going to be able to stay sober when she returns home I can't promise. Care Team: Primary Care physician: Iesha Leary, [facility] Pulmonary: Dr. Rodriguez Social HX: -Patient lives alone in [place] in family house. -, no children, -Lives in [place] for 20 yrs. 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 Pays privately to have someone help with shopping. -[facility] transportation -No lifeline, No MOW Impression of currents health status: I was pretty good, now so much arthritis and pain, the lack of balance is really worrisome to her. What bothers you the most:Pain in her pelvis What worries you the most: Worried about not being able to return home, that the pain is not going to be controlled. Goals: -I am focused on getting the pelvic pain better and getting up and about. -To get back home. -Taking care of cat, reading, enjoys regular chores. Unteniable situation?: Prefers not to live in [place], but did live for 10 months at [facility]. Current information preferences: Function: Ambulation: Moves around her house in a wheelchair, imbalance has been so bad. Occ uses walker, has not left home in a year. ADLs:Takes her own shower in [employer] shower. Dresses self, cooks own food and does dishes. iADLs:Help with shopping and heavy housecleaning. Does her own finances Hearing: OK Vision:OK Cognition: Falls: Driving: NOt car in 10 years. Palliative Performance Scale % Ambulation Activity and Evidence of Disease Self Care Intake Level of Consciousness 100 Full Normal activity, no evidence of disease Full Normal Full 90 Full Normal activity, some evidence of disease Full Normal Full 80 Full Normal activity with effort, some evidence of disease Full Normal or reduced Full 70 Reduced Unable to do normal work, some evidence of disease Full Normal or reduced Full 60 Reduced Unable to do hobby or some housework, significant disease Occasional assist necessary Normal or reduced Full or confusion 50 Mainly sit/lie Unable to do any work, extensive disease Considerable assistance required Normal or reduced Full or confusion 40 Mainly in bed Unable to do any work, extensive disease Mainly assistance Normal or reduced Full, drowsy, or confusion 30 Totally bed bound Unable to do any work, extensive disease Total care Reduced Full, drowsy, or confusion 20 Totally bed bound Unable to do any work, extensive disease Total care Minimal sips Full, drowsy, or confusion 10 Totally bed bound Unable to do any work, extensive disease Total care Mouth care only Drowsy or coma 0 - - - - Patient Score: 70 spiritual history:Agnostic, is very spiritual, prays to a power. Palliative review of systems: Pain:See HPI, pelvic really hurts Dyspnea: Better GI symptoms:CHronic diarhea from colitis. Appetite: Getting better Depression:Has some, even with meds. Anxiety: None Emotional Distress: Spiritual/Existential Distress: Labs: Cr:0.7 Liver panel:NL 2.1Albumin: CBC: hgb 9.5 Advanced Care Planning: Advanced Directive: November 2007 document on file. Health Care Agent: Sister Marzena Rae (alternate woman named Arianne has ). New surrogate Iesha Herrera friend, [employer]. See revised healthcare agent form drawn up today. COLST: Patient has been full code. Today requested DNR/DNI and new COLST written out. See A/P Limitations: Exam Narrative Exam Narrative: Pleasant, alert, oriented elderly woman well-nourished. Reclining in her recliner. Seems comfortable except when she tries to move. Bandage on her forehead and on her fried. Good eye contact. Does not appear to be depressed. Full affect Objective Last Vital Signs Temp 37.1 C 08/01/23 07:13 Pulse 88 08/01/23 07:13 Resp 18 08/01/23 07:13 BP 120/71 08/01/23 07:13 Pulse Ox 95 08/01/23 08:05 Laboratory Results - last 24 hr 07/30/23 07/31/23 08/01/23 06:00 14:27 06:35 WBC 6.15 RBC 2.87 L Hgb 9.5 L Hct 29.2 L MCV 102 H MCH 33.1 H MCHC 32.5 RDW 12.6 Plt Count 278 MPV 9.5 Immature Gran % 0.8 Neutrophils % 46.4 Lymphocytes % 25.7 Monocytes % 18.2 Eosinophils % 8.1 Basophils % 0.8 Nucleated RBC % 0.0 Absolute Neutrophils 2.85 Absolute Lymphocytes 1.58 Absolute Monocytes 1.12 H Absolute Eosinophils 0.50 Absolute Basophils 0.05 Sodium 137 Potassium 3.3 L D Chloride 102 Carbon Dioxide 29.5 Anion Gap 5.5 BUN 7 Creatinine 0.7 Est GFR (CKD-EPI 2020) 86.30 Glucose 94 Calcium 8.5 Magnesium 1.8 Transferrin 87 L Total Bilirubin 0.5 AST 20 ALT 9 L Alkaline Phosphatase 85 C-Reactive Protein 7.74 H Total Protein 6.1 L Albumin 2.1 L 25-OH Vitamin D Total 56.5
--- NOTE | 2023-08-01 11:15 | PTTR_ITS ---
Date of service: 08/01/23 Time of Service: 10:25 PT Notes Visit Reasons: pelvic fracture, pneumonia Inpatient Physical Therapy Treatment Note [facility] Date: 08/01/23 PRECAUTIONS: Fall, standard, activity as tolerated. SUBJECTIVE: Patient reports still having pain, especially when moving right leg. Reports depressed mood due to feeling like she won't be able to get home. OBJECTIVE: Supine in bed, agreeable to therapy. RN Petra gave Hartline within 1 hour prior to therapy. ? PAIN: 4/10 at rest, 6/10 with movement. VITALS: monitored by nursing staff? BED MOBILITY/TRANSFERS? Rolling L/R: not assessed Supine-sit: modified independent with elevated HOB and bilateral side rails as well as increased time. ? Sit-supine: not assessed ? Sit-stand: CGA with gait belt. Patient stands slowly, hinges forward at the hip, appears to tip forward before steadying herself and raising up to stand upright via hands on walker. ? Stand-sit: min assist at gait belt with verbal cues to control descent. ? Bed-Chair: CGA? Chair-bed: CGA Provided skilled cues and instruction on performance and technique throughout. Gait Training ([id number]): Direct one-on-one instruction and skilled instruction in: [] employing an assistive device [] modified weight-bearing status [x] movement sequencing [x] turning and movement with proper form [x] Provided verbal cues for equipment management and technique [] Provided instruction in gait pattern [] Patient education regarding pacing and breathing techniques to maximize activity tolerance? GAIT? Ambulation ? Assistive Device: FWW ? Weight bearing: WBAT Assist: CGA, verbal cues to shift weight into arms for additional support.? Distance:? 12'? Deviation: Wide AUSTEN, slow roly, reduced stride length of 1/2 length of foot, reduced step height (shuffling). Step length increases when patient is cued to push weight through arms. ? Therapeutic Exercises ([id number]): Direct one-on-one instruction in therapeutic exercises to develop strength, endurance, range of motion and flexibility. ? Exercises: * 2x10 LAQ * 2x10 heel / toe raises * 2x10 seated marching * 2x5 sciatic nerve flossing * 2x10 diaphragmatic breathing with verbal and tactile cues for full 360 degree expansion * 10 breaths with incentive inspirometer, 3 breaths over 1750 mLs Provided skilled instruction in proper exercise performance Provided skilled manual cues to facilitate proper muscle recruitment and/or form. ASSESSMENT:? Patient tolerates therapy well, no LOB. Reports feeling a bit better, emotionally, after therapy session. PLAN: Continue global strengthening per plan of care until patient is medically cleared for discharge. TREATMENT CODE/TIME: 45 minutes beginning at 10:25
[2023-08-01] MEDS: Potassium Chloride 20 MEQ TABCR 40 MEQ PO (11:36)
[2023-08-01] MEDS: Calcitonin-Salmon, Synthetic 3.7 ML BTL NS (12:20)
--- NOTE | 2023-08-01 13:21 | PDOC.CMPRO ---
Date of service: 08/01/23 Time of Service: 13:21 Care Management Progress Note Progress Note Text Progress Note Text: S/O: Elvi was sitting up in her chair when CM met with her. She stated that she still struggles with pain, which limits her mobility, although she feels that she is improving. She discussed her hesitancy to transition to SNF, as she is worried about not having the correct pain management regimen and her mobility getting worse. CM discussed this with her, as the provider who discharges her will make medication recommendations to the facility, so she should have a smooth transition to a facility. She will need to have a plan for discharge, once she becomes discharge ready. CM and Elvi discussed her options, based on the referrals that she agreed to be sent. [facility], her first choice, does not have a female bed available. [facility] is not currently open to admissions, but Neelam offered her a bed at [facility]. Elvi accepted this bed, with the intention to move to [facility] once a bed becomes available. FEDERICO contacted the facility director informatics to inform of the bed acceptance. CM will continue to follow. A: Elvi is an 82 year old female admitted to [facility] on 07/26/23 for pelvic fracture, pneumonia. P: Elvi will be evaluated by PT today which will help determine her discharge. Her transportation will likely be private vehicle via a friend vs [facility]. She will follow up with her PCP and discharge plan of care. CM will continue to follow.
--- NOTE | 2023-08-01 13:47 | W.PM.PROGNOT ---
Date of Service Date of service: 08/01/23 Time of Service: 13:48 Assessment and Plan Assessment and plan (1) Fractured pelvis: Status: Acute Assessment and plan: WBAT, per ortho. Pain control adjusted with the addition of OxyContin 10 mg twice daily in addition to her hydrocodone. Ketorolac discontinued due to her melanotic stools. Hemoglobin remained stable. Continue GI protection with PPI and Carafate. Continue physical therapy. SNF Monday Qualifiers: Encounter type: initial encounter Fracture type: closed Laterality: right Pelvic bone location: pubis Sublocation of pubis: superior rim Qualified Code(s): S32.511A - Fracture of superior rim of right pubis, initial encounter for closed fracture (2) Skin ulcer of lower leg: Status: Acute Assessment and plan: wounds growing MSSA, patient now on Ancef 2 gm IV q8h day #2, will treat for 2 weeks but when ready for discharge can transition to oral keflex Qualifiers: Laterality: right Non-pressure ulcer stage: unspecified non-pressure ulcer stage Qualified Code(s): L97.919 - Non-pressure chronic ulcer of unspecified part of right lower leg with unspecified severity (3) Infection of wound due to methicillin resistant Staphylococcus aureus (MRSA): Status: Acute Assessment and plan: Day#2 Ancef, wound care consult. When ready for dc to SNF will change to oral Keflex (4) T12 compression fracture: Status: Acute Assessment and plan: Pain management as above. Also, add a lidocaine patch. Qualifiers: Encounter type: initial encounter Qualified Code(s): S22.080A - Wedge compression fracture of T11-T12 vertebra, initial encounter for closed fracture (5) Chronic pain disorder: Status: Chronic Assessment and plan: As above. Gabapentin 100 mg tid added to her pain control regimen. (6) Alcohol dependence: Status: Resolved Assessment and plan: Not scoring on CIWA Qualifiers: Substance use status: uncomplicated Qualified Code(s): F10.20 - Alcohol dependence, uncomplicated (7) Alcohol withdrawal: Status: Acute Qualifiers: Complication of substance-induced condition: uncomplicated Qualified Code(s): F10.930 - Alcohol use, unspecified with withdrawal, uncomplicated (8) Anemia: Status: Chronic Assessment and plan: Anemia of chronic disease. Monitor H/H. No indication for transfusion at this time. ketorolac stopped d/t recent black stools which have normalized now. iron studies are c/w anemia of chronic disease rather than iron deficiency (high ferritin, low serum iron, low TIBC, normal transferrin %). Qualifiers: Anemia type: other cause Qualified Code(s): D63.8 - Anemia in other chronic diseases classified elsewhere (9) Gastroesophageal reflux disease: Status: Chronic Assessment and plan: Continue PPI but increase her Nexium to BID and continue Carafate Qualifiers: Esophagitis presence: esophagitis presence not specified Qualified Code(s): K21.9 - Gastro-esophageal reflux disease without esophagitis (10) Menopausal disorder: Status: Chronic Assessment and plan: Resume provera (11) Interstitial lung disease: Status: Chronic Assessment and plan: Dr. Denise does not believe that her current condition represents an ILD flare as she is not hypoxemic nor increased cough. She is working her up for autoimmune disease and setting follow up in pulmonary clinic (12) Laceration of skin of right forearm: Status: Acute Assessment and plan: S/p suturing in the ED 07/25 Sutures should be removed 08/02. Qualifiers: Encounter type: initial encounter Qualified Code(s): S51.811A - Laceration without foreign body of right forearm, initial encounter (13) DVT prophylaxis: Status: Acute Assessment and plan: SC enoxaparin (14) Discharge planning issues: Status: Acute Assessment and plan: Patient now DNR/DNI, changed from full code after discussion with Palliative care provider PT consulted. Patient agrees with plan for SNF Subjective Subjective Patient reports: no new complaints, tolerating a regular diet, voiding w/o difficulty, bowel movement and afebrile; denies diarrhea, nausea or vomiting Interval history since last seen: Awake, alert, pleasant Awaiting placement at [facility] Exam Narrative Exam Narrative: Awake, alert, pleasant, conversant Lungs: fine rales at bases, otherwise clear Heart: RRR Abdomen: obese, soft, nontender Legs: she has Mepilex over her sores on her legs, the erythema has improved in her legs Pelvis/hip: still some tenderness over her right pelvis, pain radiating down leg has improved Objective Last Vital Signs Temp 37.1 C 08/01/23 07:13 Pulse 88 08/01/23 07:13 Resp 18 08/01/23 07:13 BP 120/71 08/01/23 07:13 Pulse Ox 95 08/01/23 08:05 Laboratory Results - last 24 hr 07/31/23 08/01/23 14:27 06:35 WBC 6.15 RBC 2.87 L Hgb 9.5 L Hct 29.2 L MCV 102 H MCH 33.1 H MCHC 32.5 RDW 12.6 Plt Count 278 MPV 9.5 Immature Gran % 0.8 Neutrophils % 46.4 Lymphocytes % 25.7 Monocytes % 18.2 Eosinophils % 8.1 Basophils % 0.8 Nucleated RBC % 0.0 Absolute Neutrophils 2.85 Absolute Lymphocytes 1.58 Absolute Monocytes 1.12 H Absolute Eosinophils 0.50 Absolute Basophils 0.05 Sodium 137 Potassium 3.3 L D Chloride 102 Carbon Dioxide 29.5 Anion Gap 5.5 BUN 7 Creatinine 0.7 Est GFR (CKD-EPI 2020) 86.30 Glucose 94 Calcium 8.5 Magnesium 1.8 Total Bilirubin 0.5 AST 20 ALT 9 L Alkaline Phosphatase 85 C-Reactive Protein 7.74 H Total Protein 6.1 L Albumin 2.1 L 25-OH Vitamin D Total 56.5 Cyclic Citrull Peptide <2.5 PAWSS Have you Been Recently Intoxicated or Drunk Within the Last 30 days?: No Have you Ever Experienced Previous Episodes of Alcohol Withdrawal?: No Have you ever Experienced Withdrawal Seizures?: No Have you ever Experienced Delirium Tremens(DT)s?: No Have you ever undergone Alcohol Rehabilitation Treatment (i.e, inpt ot outpatient treatment programs)?: No Have you ever Experienced Blackouts?: No Have you ever Combined Alcohol with other Downers within the last 90 days?: No Have you ever Combined Alcohol with any other Substance of Abuse during the last 90 days?: No Positive Blood Alcohol level on Presentation? [PCS.BAL]: No Evidence of Increased Autonomic Activity (i.e. HR>120, tremor, sweating, agitation, nausea)?: No Result: 0 Time Spent with Patient Time Spent with Patient: 35-49 minutes Time was spent: preparing to see the patient(eg.review tests), ordering medications,tests, procedures, referring, communicating with other health career and transition teacher, indepentently interpreting results and care coordination
--- NOTE | 2023-08-01 13:54 | W.NUTRFU ---
Date of service: 08/01/23 Time of Service: 13:30 Nutrition Note NOTE: Elvi is an 82yo female admitted for fractured pelvis with a medical hx nutritionally significant for Etoh use disorder/withdrawal, GERD, HTN, Colitis, HLD, anemia, COPD. She is noticeably lacking dentition and c/o the quality of the meat served to her lately - tough tough and overcooked. I asked and received feedback on other comments on the food quality and will adjust her diet order to include chopped meats and work with kitchen staff to ensure meat is not overcooked. Her total protein and albumin labs both low - she currently is ordered for regular diet with normal textures and has also been prescribed liquid protein concentreate TID (adding 45g protein daily) - pt states she hasn't had any yet but that nurses mentioned it to her. Offered supplemental nutrition with or between meals and she feels between meals BID would be better tolerated by her - preferred strawberry ensure over the options offered. Will offer at 2pm and 7pm nourishments to provide and additional 700kcals and 26g protein per day. She also enjoys our homemade custard and this was noted on her nutrition worklist for kitchen staff. Will monitor her continued intake and acceptance/tolerance of liquid protein and between meal nourishments. Time Spent in Nutritional Counseling and Treatment: 30 minutes
[2023-08-01] MEDS: Protein Nutritional Supplement 16 GM 1 OUNCE PACKET PO ×2 (14:43→20:37)
[2023-08-01 15:42] VITALS: BP 111/93; PULSE 78; RESP 18; TEMP 37.2; O2SAT 1
[2023-08-01] MEDS: Acetaminophen 325 MG TAB 650 MG PO (15:58)
[2023-08-01 18:39] VITALS: BP 100/65; PULSE 89; RESP 20; TEMP 36.7; O2SAT 92
[2023-08-01] MEDS: Lidocaine 5% Patch 1 PATCH TP (20:38)
[2023-08-01] MEDS: traZODone 100 MG TAB 200 MG PO (20:39)
[2023-08-01] MEDS: QUEtiapine 50 MG TAB PO (20:39)
[2023-08-01] MEDS: Cephalexin 500 MG CAP PO (20:39)
[2023-08-01] MEDS: Enoxaparin 40 MG/0.4 ML SYR SC (22:00)
[2023-08-01 22:08] VITALS: O2SAT 93
[2023-08-02 03:11] VITALS: BP 107/65; PULSE 87; RESP 17; TEMP 36.6; O2SAT 94
[2023-08-02 06:34] LABS: Abs Immature Grans 0.06 10^3/uL (0.0-0.06); Absolute Basophil Count 0.02 10^3/uL (0.0-0.2); Absolute Lymphocyte Count 1.28 10^3/uL (1.2-3.4); Absolute Neutrophil Count 2.48 10^3/uL (1.2-6.7); Basophils % 0.4; Eosinophils % 7.5; HCT 27.6 % (36.0-46.0); Immature Grans % 1.1; MCH 33.1 pg (27.0-33.0); MCHC 32.6 % (32.0-36.0); MCV 102 fL (80-95); MPV 9.6 fL (8.0-11.0); Monocytes % 20.6; Neutrophils % 46.4; Platelet Count 260 10^3/uL (130-400); RBC 2.72 10^6/uL (3.93-5.22); RDW 12.6 % (11.7-14.6); RDW-SD 46.9 fL; WBC 5.34 10^3/uL (4.4-10.8)
[2023-08-02 06:45] LABS: Anion Gap 4.3 mmol/L (3-11); BUN 12 mg/dL (7-18); CO2 28.7 mmol/L (21.0-32.0); CREATININE 0.6 mg/dL (0.55-1.02); Calcium 8.2 mg/dL (8.5-10.1); Chloride 103 mmol/L (98-107); Estimated GFR 89.56 (mL/min/1.73m2); Glucose 99 mg/dL (74-106); Magnesium 1.8 mg/dL (1.8-2.4); Potassium 3.5 mmol/L (3.5-5.1); Sodium 136 mmol/L (136-145)
[2023-08-02 07:12] VITALS: BP 104/65; PULSE 89; RESP 16; TEMP 37.4; O2SAT 93
[2023-08-02 07:29] VITALS: O2SAT 92
[2023-08-02 07:30] VITALS: O2SAT 92
[2023-08-02] MEDS: Protein Nutritional Supplement 16 GM 1 OUNCE PACKET PO ×2 (08:33→14:05)
[2023-08-02] MEDS: Calcitonin-Salmon, Synthetic 3.7 ML BTL NS (08:33)
[2023-08-02] MEDS: Fluticasone NASAL SPRAY 16 GM BTL NS (08:34)
[2023-08-02] MEDS: Sucralfate 1 GM TAB PO ×3 (08:34→15:38)
[2023-08-02] MEDS: Cholecalciferol (Vitamin D3) 400 UNIT TAB 800 UNIT PO (08:36)
[2023-08-02] MEDS: Esomeprazole 40 MG CAPCR PO (08:36)
[2023-08-02] MEDS: DULoxetine 30 MG CAP PO (08:36)
[2023-08-02] MEDS: Acetaminophen 325 MG TAB 650 MG PO ×2 (08:36→14:04)
[2023-08-02] MEDS: DULoxetine 30 MG CAP 60 MG PO (08:36)
[2023-08-02] MEDS: Gabapentin 100 MG CAP PO ×2 (08:37→14:04)
[2023-08-02] MEDS: Simethicone 80 MG CHEW 160 MG PO ×3 (08:37→15:38)
[2023-08-02] MEDS: Cephalexin 500 MG CAP PO ×3 (08:37→15:38)
[2023-08-02] MEDS: Cyanocobalamin 500 MCG TAB PO (08:37)
[2023-08-02] MEDS: medroxyPROGESTERone 5 MG TAB 2.5 MG PO (08:37)
--- NOTE | 2023-08-02 08:44 | PDOC.CMPRO ---
Date of service: 08/02/23 Time of Service: 08:44 Care Management Progress Note Progress Note Text Progress Note Text: S/O: A: Elvi is an 82 year old female admitted to [facility] on 07/26/23 for pelvic fracture, pneumonia. P: Elvi will be evaluated by PT today which will help determine her discharge. Her transportation will likely be private vehicle via a friend vs RCT. She will follow up with her PCP and discharge plan of care. CM will continue to follow.
--- NOTE | 2023-08-02 09:14 | W.PM.DS.N ---
Date of service: 08/02/23 Time of Service: 09:14 DS: Diagnosis Discharge Diagnosis (1) Fractured pelvis: Status: Acute (2) Skin ulcer of lower leg: Status: Acute (3) Infection of wound due to methicillin resistant Staphylococcus aureus (MRSA): Status: Acute (4) T12 compression fracture: Status: Acute (5) Chronic pain disorder: Status: Chronic (6) Alcohol dependence: Status: Resolved (7) Alcohol withdrawal: Status: Acute (8) Anemia: Status: Chronic (9) Gastroesophageal reflux disease: Status: Chronic (10) Menopausal disorder: Status: Chronic (11) Interstitial lung disease: Status: Chronic (12) Laceration of skin of right forearm: Status: Acute (13) DVT prophylaxis: Status: Acute (14) Discharge planning issues: Status: Acute Discharge Plan Disposition Patient Disposition: Senior Living Facility(SNF) Condition: Improving Discharge Details Reason For Visit: pelvic fracture, pneumonia Admit Date/Time: 07/26/23 11:15 Admit Provider: Audie Richmond Attending Provider: Audie Richmond Primary Care Provider: Iesha Leary Hospital Course Hospital Course: This 82 year old with alcohol use disorder, interstitial lung disease, homebound living alone with chronic wheelchair use, COPD, and chronic pain on opioids who was brought to the emergency room ?on 07/25/2023 at [facility] via EMS after she lost her balance and fell trying to answer a knock at the door. She stated that she left her wheelchair to open the door ?leaned forward to and missed a campaign management specialist on the wall and fell on her right side and could not get up. She had pain in her right arm and pelvis. Her friend heard her fall and called 911. EMS had to break down the door to get to her. She hit her forehead but denied loss of consciousness. She did not have dizziness, chest pain, or palpitations before or after the fall. She reported feeling more tired in the days before the fall. She had some cough with sputum but thought this was her allergies, no fever/chills. She reported drinking 1-2 bottle of wine a day for years and tremors without seizures when she does not. In the ED, the patient was initially hypoxic, not able to ambulate safely. Will admit for observation and work with PT for a safe discharge plan. Lab in the Ed were unremarkable CT imaging showed T12 compression fracture (also there on 04/2022) and new fractures of the superior and inferior pubic rami on the right side (pelvic fracture)The hospitalist admitted the patient for evaluation and management of compression fracture, pelvic and pneumonia. During her stay, the patient initially received doxycycline and ceftriaxone for pneumonia. The pulmonary consult completed recommended against steroids, but for AKIKO, RF, and anti-CCP, and hypersensitivity panel testing for her history of IDL and the plan for her non-specific interstitial pneumonia. Dr. Denise will f/u outpatient. Pain mangement consited intially of hydrocodone-Acetaminophen scheduled, aged adjusted dosing of acetaminophen scheduled, and a short course of Ketorolac IV; we later added scheduled gabapentin and scheduled Oxycontin and transitioned the patient back to her home regimen of PRN hydrocodone-Acetaminophen. The patient had mild anemia and cyanocobalamin oral was added to her drug regimen, MMA is still pending and homocystein is normal. The patient was started on an alcohol withdrawal protocol with lorazepam and transitioned to a loading dose of IV phenobarbital, which was effective. The patient does not display signs of alcohol withdrawal at this time. The patient also received thiamine and folic acid.The patient had a wound consult for ulcers on her right lateral and medial ankle as well a her left anterior tibia; recommendation for dressing change are every 3 days, Anasept spool cleaner hand and gel to wound bed, and Mepilex dressing. There was no bone involvement per imaging. F/u with wound care provider due every week. The patient had sustained a skin laceration to her right forearm and sutures should be removed on 08/04.The wounds grew MSSA and the patient transitioned from Ancef IV to oral Keflex for a total therapy length of 10-14 days. Physical therapy saw the patient and recommended to continue global strengthening. As per the orthopedic consultation with Dr. Martinez, recommendation were WBAT with walker and follow-up in 2-3 weeks, referral completed. Discussed with Dr. Vicente Home Meds and New Rx's Prescriptions: New calcitonin (salmon) 200 unit/actuation [place],Non-Aerosol 1 spray NS DAILY Qty: 3.7 0RF cephalexin 500 mg Capsule 500 mg PO QID Qty: 40 0RF cyanocobalamin (vitamin B-12) [Vitamin B-12] 500 mcg Tablet 500 mcg PO DAILY Qty: 30 0RF cyclosporine 0.05 % Dropperette 8 drp OU BID Qty: 30 0RF gabapentin 100 mg Capsule 100 mg PO TID Qty: 90 0RF lorazepam 1 mg Tablet 1 mg PO TID PRN PRNQty: 10 0RF oxycodone [OxyContin] 10 mg Tablet,Oral Only,Ext.Rel.12 Hr 10 mg PO Q12H Qty: 14 0RF sucralfate 1 gram Tablet 1 g PO AC & HS Qty: 120 0RF hydrocodone-acetaminophen 5-325 mg tablet 1 tab PO Q6H PRNQty: 20 0RF Continued ferrous sulfate 325 MG tablet 325 mg PO TID cholecalciferol (vitamin D3) [Vitamin D3] 400 UNIT tablet 800 unit PO DAILY glucosamine sulfate 2KCl 1,000 MG tablet 500 mg PO BID ascorbic acid (vitamin C) 1,000 MG tablet 4,000 mg PO DAILY duloxetine [Cymbalta] 60 MG capsule,delayed release(DR/EC) 60 mg PO DAILY Rx Instructions: TAKES IN ADDITION TO A 30 MG CAP FOR A TOTAL OF 90 MG PO DAILY medroxyprogesterone [Provera] 2.5 MG tablet 2.5 mg PO DAILY quetiapine 50 mg tablet 50 mg PO QPM Patient Comments: TAKE ONE TABLET BY MOUTH EVERY EVENING duloxetine 30 mg capsule,delayed release(DR/EC) 30 mg PO DAILY Patient Comments: TAKE ONE CAPSULE BY MOUTH EVERY DAY WITH 60MG Rx Instructions: TAKES IN ADDITION TO A 60 MG CAP FOR A TOTAL OF 90 MG PO DAILY trazodone 100 mg tablet 200 mg PO HS Patient Comments: TAKE 2 TABLETS BY MOUTH EVERY NIGHT albuterol sulfate [Ventolin HFA] 90 mcg/actuation Hfa Aerosol Inhaler 2 puff inhalation Q4H PRN PRNQty: 0 0RF esomeprazole magnesium [Nexium] 40 mg Capsule,Delayed Release(Dr/Ec) 40 mg PO DAILY@0730 Qty: 0 0RF potassium chloride 20 MEQ tablet,ER particles/crystals 20 meq PO TID Rx Instructions: 20 MG PO TID DIRECTED fluticasone propionate 50 mcg/actuation spray,suspension 0 spray INTRANASAL BID Patient Comments: SPRAY ONE SPRAY IN EACH NOSTRIL TWICE A DAY Rx Instructions: ONE SPRAY EACH NOSTRIL BID lidocaine [Lidoderm] 1 PATCH patch 1 patch Topical Q24H Qty: 4 0RF Discontinued hydrocodone-acetaminophen 5-325 mg tablet 1 tab PO QID PRN PRN Hold Instructions: Resume on 03/22/22. per outpatient provider. duplicate entry Patient Comments: TAKE ONE TABLET BY MOUTH FOUR TIMES A DAY DIRECTED Discharge Instructions Stand Alone Forms: Nursing Discharge Form Referrals: Iesha Leary [Primary Care Provider] - 08/09/23 11:00 am Drew Martinez MD [ [facility] STAFF PHYSICIAN] - 08/11/23 9:00 am (82 yo with alcohol use disorder, homebound living alone with chronic wheelchair use, COPD, and chronic pain on opioids who was brought to the emergency room today after she lost her balance and fell trying to answer a knock at the door. Ortho consulted on 07/27. CT chest abdomen and pelvis of 07/25 showed :Fractures of superior inferior pubic rami on the right side with some displacement adjacent hematoma. No left eva pelvic fractures. Thank you) Activity:: WBAT with walker Equipment/Supplies:: Walker Diet:: As Tolerated Discharge Orders Discharge Orders: Discharge Order (Routine); Ordered 08/02/23 Ordered By: iFor Graves DS: Summary Time Spent with Patient providing and/or coordinating discharge services: Greater than 30 minutes Status at Discharge Functional status at discharge: uses cane/walker Overall status at discharge: patient is progressing back to baseline Mental Status: mental status grossly normal Speech and Movement: speech and movement normal Mood: congruent mood and anxious mood Affect: anxious affect Exam Narrative Exam Narrative: Constitutional The patient is in bed cooperative during the interview,without acute distress,pain is less HENMT: Head is normocephalic,facial structures with normal appearance, healed laceration on forehead Eyes: Well aligned Neck: Normal ROM, no meningeal signs Neuro:alert and oriented to self, person, place, time and situation. No neurological focal deficit Chest:Chest is symmetrical and normal appearance Resp: RA, clear lung bilaterally but decreased in right lower lung meredith Cardio: regular rhythm, S1, S2, no murmur, positive pulse to all four ext. GI: Abdomen is not distended, soft and non tender, bowel sounds are present : no bladder distension Back/spine/Pelvis: pain to right hip/ back with movement , normal alignment Integumentary: bilat. leg ulcers with dressing, granulation tissue to wound bed on left leg and right proximal ankle Extremities: strength 5/5 to bilateral upper ext 5/5 to lower extremities on pull push testing Psych: RASS 0, congruent mood and normal to anxious affect,concerns for pain relief prior to PT, Psych Mental Status: mental status grossly normal Speech and Movement: speech and movement normal Mood: congruent mood and anxious mood Affect: anxious affect DS: Data Vitals/I&O Vitals and I&O: Vital Signs Temperature 37.4 C 08/02/23 07:12 Temperature Source Tympanic 08/02/23 07:12 Pulse 89 08/02/23 07:12 Pulse Rhythm Regular 08/02/23 07:30 Pulse 94 H 07/25/23 18:10 Respiratory Rate 16 08/02/23 07:12 Respiratory Effort Normal, Non-Labored 08/02/23 07:30 Respiratory Depth Shallow 08/02/23 07:30 Respiratory Pattern Normal 08/02/23 07:30 Blood Pressure 104/65 08/02/23 07:12 Blood Pressure Mean 85 07/25/23 17:02 Pulse Oximetry 92 08/02/23 07:30 Oxygen Delivery Method Room Air 08/02/23 07:30 Oxygen Flow Rate 0 08/02/23 07:30 Pain Level 4 08/02/23 08:36 Comment She is on 0.5L of O2 Pain is 8 when moving 08/01/23 15:42 Intake & Output 08/01/23 08/01/23 08/02/23 11:59 23:59 11:59 Intake Total 790 / 790 240 / 240 Output Total 1150 / 1150 Balance -360 / -360 240 / 240 Weight 86.3 kg Intake: IV 100 / 100 Oral 690 / 690 240 / 240 Output: Urine 1150 / 1150 Other: Urine Color Yellow Yellow Yellow Urine Appearance Clear Clear Clear Urine Odor Normal Comment Purewick mixed with stool Stool Size Smear Small Moderate Stool Characteristics Soft Soft Liquid Brown Brown Voiding Methods Bedside Commode Bedside Commode Data Completed and Pending Labs on day of discharge: Labs from last 24 hours 08/02/23 07/31/23 06:25 14:27 WBC 5.34 RBC 2.72 L Hgb 9.0 L Hct 27.6 L MCV 102 H MCH 33.1 H MCHC 32.6 RDW 12.6 Plt Count 260 MPV 9.6 Immature Gran % 1.1 Neutrophils % 46.4 Lymphocytes % 24.0 Monocytes % 20.6 Eosinophils % 7.5 Basophils % 0.4 Nucleated RBC % 0.0 Absolute Neutrophils 2.48 Absolute Lymphocytes 1.28 Absolute Monocytes 1.10 H Absolute Eosinophils 0.40 Absolute Basophils 0.02 Sodium 136 Potassium 3.5 Chloride 103 Carbon Dioxide 28.7 Anion Gap 4.3 BUN 12 Creatinine 0.6 Est GFR (CKD-EPI 2020) 89.56 Glucose 99 Calcium 8.2 L Magnesium 1.8 Cyclic Citrull Peptide <2.5 PFSH All Active Problems (Updated 08/02/23 @ 01:24 by Salome Louise NP) DNR (do not resuscitate) (Acute) Chronic pain (Chronic) Frequent falls (Acute) Palliative care encounter (Acute) Alcohol withdrawal (Acute) Infection of wound due to methicillin resistant Staphylococcus aureus (MRSA) (Acute) NSIP (nonspecific interstitial pneumonia) (Acute) Fracture of right inferior pubic ramus (Acute) Fracture of right superior pubic ramus (Acute) ACP (advance care planning) (Acute) Alcohol use disorder (Acute) Laceration of skin of right forearm (Acute) Skin ulcer of lower leg (Acute) Discharge planning issues (Acute) DVT prophylaxis (Acute) Interstitial lung disease (Chronic) Laceration of arm, right, complicated (Acute) Fractured pelvis (Acute) T12 compression fracture (Acute) Acute exacerbation of chronic low back pain (Acute) Full code status (Acute) E. 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 fell down and could not get up Hypertension (Chronic) with labile blood pressure. Morbid obesity (Chronic) Allergic rhinitis (Chronic) Hyperlipidemia (Chronic) History of anemia (Chronic) Fibromyalgia (Chronic) DJD (degenerative joint disease) (Chronic) Chronic depression (Chronic) Insomnia (Chronic) Gastroesophageal reflux disease (Chronic) Hiatal hernia (Chronic) Irritable bowel syndrome (Chronic) History of surgery (Chronic) a. S/P open right ankle fracture/dislocation. b. Left knee arthroscopy. c. Right wrist fracture repair. d. T/A as a child. Dehydration, mild (Acute 09/22/14) Housing or economic circumstance (Chronic 09/22/14) a. No heat for 1-1/2 days H/O fall (Chronic) Anemia (Chronic) Person living alone (Chronic 09/22/14) Alcohol withdrawal delirium (Acute 09/22/14) Rhabdomyolysis (Acute 09/22/14) Ataxia (Chronic) COPD (chronic obstructive pulmonary disease) (Chronic) Onychomycosis (Chronic) Depression (Chronic) Medical History Palliative care encounter Hiatal hernia IBS (irritable bowel syndrome) Hypertension Allergic rhinitis GERD (gastroesophageal reflux disease) DJD (degenerative joint disease) Hyperlipidemia Hypercholesterolemia Fibromyalgia Depression Anemia Alcohol abuse Insomnia Surgical History Tonsillectomy and adenoidectomy Repair fracture right wrist ORIF right ankle Colonoscopy - MAC (11/18/16) Arthroplasty of knee left Family History Mother Dementia Maternal Aunt Diabetes Social History Smoking/Tobacco Use Status: Former Tobacco Use Smoking risk assessment performed?: Yes Alcohol Intake: current Alcohol Intake frequency: 0-2 drinks per day Alcohol type: wine Counseling given: Yes Details: 1-2 bottle of wine/day Drug use: Daily Substance use type: does not use and marijuana Details: two tokes for sleep Housing: house Do you feel safe at home: Yes Do you feel safe in your relationship?: Yes Additional Social history: Lives alone in home in [facility], has a cat. States hasn't been out of house for a year. One sister in [place] Time Spent with Patient Time Spent with Patient: >85 minutes Time was spent: preparing to see the patient(eg.review tests), ordering medications,tests, procedures, referring, communicating with other health workforce investment act career manager, indepentently interpreting results, counseling the patient and care coordination
[2023-08-02] MEDS: oxyCODONE-CR 10 MG TABCR PO (10:30)
--- NOTE | 2023-08-02 11:24 | PT.INTREAT ---
Date of service: 08/02/23 Time of Service: 11:02 PT Notes Visit Reasons: pelvic fracture, pneumonia Inpatient Physical Therapy Treatment Note [facility] Date: 08/02/23 PRECAUTIONS: Fall, standard, activity as tolerated SUBJECTIVE: Patient reports anxiety about going a SNF, as it looks like she will have to go further away due to a shortage of available beds in the local area. OBJECTIVE: Supine in bed, agreeable to therapy. ? PAIN: reports 4/10 at rest, 9/10 when moving VITALS: monitored by nursing staff ? BED MOBILITY/TRANSFERS? Rolling L/R: modified independent with extended time and bilateral side rails Supine-sit: modified independent with extended time and bilateral side rails ? Sit-supine: not assessed ? Sit-stand: SBA ? Stand-sit: CGA with verbal cues to reach back for armrests, control descent ? Bed-Chair: CGA ? Chair-bed: CGA ? Therapeutic Exercises ([id number]): Direct one-on-one instruction in therapeutic exercises to develop strength, endurance, range of motion and flexibility. Ambulation ? Assistive Device: FWW? Weight bearing: full Assist: CGA ? Distance:? 15 feet ? Deviation: wide AUSTEN, asymmetric step length, reduced swing phase left, short step length, reduced step height, pain ? Provided skilled instruction in proper exercise performance Provided skilled manual cues to facilitate proper muscle recruitment and/or form. ASSESSMENT:? patient tolerates therapy well, is very motivated to get stronger so that she can return home. PLAN: Continue global strengthening per plan of care until patient is medically cleared for discharge. TREATMENT CODE/TIME: 19 minutes beginning at 11:02
[2023-08-02] MEDS: LORazepam 1 MG TAB PO (14:04)
[2023-08-02 14:47] LABS: ANA Interpretation Positive (Negative); ANA Titer Pattern 1:80 Speckled
[2023-08-02 15:20] VITALS: BP 115/72; PULSE 82; RESP 17; TEMP 36.7; O2SAT 93
--- NOTE | 2023-08-02 15:29 | NUR.NOTE ---
Pt is discharging to [facility] this afternoon via wheelchair van. Report called into Eryn IRAHETA at facility. All questions answered appropriately.
[2023-08-02] MEDS: HYDROcodone 5/Acetaminophen 325 TAB PO (15:39)
--- NOTE | 2023-08-02 16:26 | CMDISCH_ITS ---
Date of service: 08/02/23 Time of Service: 16:26 LACE Index Scoring Tool Questions: Length of Stay (in days): 7 - 13 Was the patient admitted via the E.D.?: Yes Comorbidities: Chronic Pulmonary Disease E.D. Visits: 0 Answers: Total Score: 10 Risk of Readmission: High Risk Care Management Discharge Plan Reason for Hospitalization: Pelvic fracure, pneumonia Discharge Plan: Elvi will go to [facility] for short term rehab, with the intention of being transferred to [facility] once a bed becomes available. She was transported by [facility], coordinated by CM. She will follow up with her PCP and discharge plan of care. Patient/Family Education Needs: Review discharge instructions and limitations, discussion of self care needs including ask me three. Services Needed at Discharge: Senior Living Facility ([facility]) and Transportation ([facility] w/c kranthi)
[2023-08-03 10:01] LABS: Rheumatoid Factor <8.6 IU/mL (<12.0)
[2023-08-03 10:45] LABS: Methylmalonic Acid 0.17 nmol/mL (<=0.40)
[2023-08-04 15:38] LABS: 1,25-Dihydroxyvitamin D 38 pg/mL (18-78)
[2023-08-07 16:57] LABS: Alter tenuis/alternata IgG 2.4 mcg/mL (<12.0); Aspergillus fumigatus IgG 7.6 mcg/mL (<46.0); Aureobasidium pullulans IgG <2.0 mcg/mL (<18.0); Laceyella sacchari IgG 3.5 mcg/mL (<25.0); Micropolyspora faeni IgG <2.0 mcg/mL (<5.0); Penicillium Chrysogenum IgG 7.2 mcg/mL (<22.0); Phoma betae IgG 2.8 mcg/mL (<8.0)
== END 2023-08-02 16:54 | disposition skilled nursing facility (03) | DRG 535 ==
LOC: ER 19:34 → MS 19:36
PROVIDERS: Internal Medicine; Nurse Practitioner Acute Care; Nurse Practitioner Family; Student in an Organized Health Care Education/Training Program; Admitting Provider Family Medicine; Emergency Provider Student in an Organized Health Care Education/Training Program; PCP Family Medicine; Visit Provider Family Medicine
DX: S32.511A Fracture of superior rim of right pubis, initial encounter for closed fracture (principal); J18.9 Pneumonia, unspecified organism; S22.080A Wedge compression fracture of T11-T12 vertebra, initial encounter for closed fracture; F10.239 Alcohol dependence with withdrawal, unspecified; L97.811 Non-pressure chronic ulcer of other part of right lower leg limited to breakdown of skin; L97.821 Non-pressure chronic ulcer of other part of left lower leg limited to breakdown of skin; S32.591A Other specified fracture of right pubis, initial encounter for closed fracture; K21.9 Gastro-esophageal reflux disease without esophagitis; M54.50 Low back pain, unspecified; M79.7 Fibromyalgia; J84.89 Other specified interstitial pulmonary diseases; Z66 Do not resuscitate; R09.02 Hypoxemia; W18.39XA Other fall on same level, initial encounter; S41.111A Laceration without foreign body of right upper arm, initial encounter; E78.00 Pure hypercholesterolemia, unspecified; S00.81XA Abrasion of other part of head, initial encounter; N95.1 Menopausal and female climacteric states; R61 Generalized hyperhidrosis; Z79.891 Long term (current) use of opiate analgesic; R29.6 Repeated falls; K58.9 Irritable bowel syndrome, unspecified; K44.9 Diaphragmatic hernia without obstruction or gangrene; I10 Essential (primary) hypertension; J30.9 Allergic rhinitis, unspecified; F32.A Depression, unspecified; G47.00 Insomnia, unspecified; I83.018 Varicose veins of right lower extremity with ulcer other part of lower leg; I83.028 Varicose veins of left lower extremity with ulcer other part of lower leg; D50.9 Iron deficiency anemia, unspecified; L08.9 Local infection of the skin and subcutaneous tissue, unspecified; B95.62 Methicillin resistant Staphylococcus aureus infection as the cause of diseases classified elsewhere
CPT/HCPCS: 00123; 36415; 71250; 73552; 80048; 80053; 80186; 82306; 83090; 84145; 85652; 86001; 86200; 87040; 87077; 87426; 87449; 87637; 96365; 96367; 97110; 97112; 97116; 97162; 97530; 99222; 99223; 99285; J1650; 70450; 71045; 72125; 72170; 73600; 74176; 81003; 82270; 82607; 82652; 82728; 82746; 83540; 83550; 83735; 83880; 84466; 85025; 85610; 85730; 86038; 86140; 86431; 87070; 87186; 87205; 87899; 93970; 94667; 94668; 94760; 99232; 99233; 99239; G0378; J0131; J0690; J1170; J1885; J2560; J3490

== ENCOUNTER → 2023-07-31 07:55 | Outpatient (BNVA) | payer MEDICARE, SELFPAY | PROVIDERS: PCP Family Medicine; Referring Provider Family Medicine; Visit Provider Student in an Organized Health Care Education/Training Program ==

== ENCOUNTER 2023-12-31 13:37 | Inpatient (IN) | payer MEDICARE, MEDICAID, SELFPAY ==
[2023-12-31] VITALS (87 sets, daily range): BP systolic 108–253; BP diastolic 52–222; PULSE 92–109; RESP 8–29; TEMP 36.7–37; O2SAT 82–100
--- NOTE | 2023-12-31 13:50 | ED.GENADUL_ITS ---
Discharge Plan Discharge Details Chief Complaint: Fall/Non TraumaCriteria Clinical Impression: Acute UTI, Closed fracture of left hip, Elevated CK Primary Care Provider: Iesha Leary ED Provider: Stefanie Williamson Home Meds and New Rx's Prescriptions: No Action Balanced B-100 Complex 100 mg tablet extended release PO biotin 1 mg capsule 1 mg PO DAILY lutein 6 mg capsule 6 mg PO DAILY Rx Instructions: give with meal/snack vitamin A 2,400 mcg capsule 2,400 mcg PO DAILY ginkgo biloba 40 mg tablet 40 mg PO DAILY Rx Instructions: give with meal/snack magnesium 250 mg tablet 500 mg PO DAILY zinc acetate 25 mg (zinc) capsule 25 mg PO DAILY vitamin E (dl, acetate) 45 mg (100 unit) capsule 45 mg PO DAILY ferrous sulfate 325 MG tablet 325 mg PO TID cholecalciferol (vitamin D3) [Vitamin D3] 400 UNIT tablet 800 unit PO DAILY glucosamine sulfate 2KCl 1,000 MG tablet 500 mg PO BID ascorbic acid (vitamin C) 1,000 MG tablet 4,000 mg PO DAILY duloxetine [Cymbalta] 60 MG capsule,delayed release(DR/EC) 60 mg PO DAILY Rx Instructions: TAKES IN ADDITION TO A 30 MG CAP FOR A TOTAL OF 90 MG PO DAILY medroxyprogesterone [Provera] 2.5 MG tablet 2.5 mg PO DAILY quetiapine 50 mg tablet 50 mg PO QPM Patient Comments: TAKE ONE TABLET BY MOUTH EVERY EVENING duloxetine 30 mg capsule,delayed release(DR/EC) 30 mg PO DAILY Patient Comments: TAKE ONE CAPSULE BY MOUTH EVERY DAY WITH 60MG Rx Instructions: TAKES IN ADDITION TO A 60 MG CAP FOR A TOTAL OF 90 MG PO DAILY trazodone 100 mg tablet 200 mg PO HS Patient Comments: TAKE 2 TABLETS BY MOUTH EVERY NIGHT albuterol sulfate [Ventolin HFA] 90 mcg/actuation Hfa Aerosol Inhaler 2 puff inhalation Q4H PRN PRNQty: 0 0RF esomeprazole magnesium [Nexium] 40 mg Capsule,Delayed Release(Dr/Ec) 40 mg PO DAILY@0730 Qty: 0 0RF calcitonin (salmon) 200 unit/actuation [place],Non-Aerosol 1 spray NS DAILY Qty: 3.7 0RF cyanocobalamin (vitamin B-12) [Vitamin B-12] 500 mcg Tablet 500 mcg PO DAILY Qty: 30 0RF cyclosporine 0.05 % Dropperette 8 drp OU BID Qty: 30 0RF gabapentin 100 mg Capsule 100 mg PO TID Qty: 90 0RF sucralfate 1 gram Tablet 1 g PO AC & HS Qty: 120 0RF hydrocodone-acetaminophen 5-325 mg tablet 1 tab PO Q6H PRNQty: 20 0RF potassium chloride 20 MEQ tablet,ER particles/crystals 20 meq PO TID Rx Instructions: 20 MG PO TID DIRECTED fluticasone propionate 50 mcg/actuation spray,suspension 0 spray INTRANASAL BID Patient Comments: SPRAY ONE SPRAY IN EACH NOSTRIL TWICE A DAY Rx Instructions: ONE SPRAY EACH NOSTRIL BID HPI General Date/Time Provider Initiated Documentation: 12/31/23 13:48 . HPI Narrative: Elvi is an 83-year-old female with history of chronic colitis, hypertension, hyperlipidemia, fibromyalgia, and COPD who presents to the emergency department today for evaluation of left hip pain status post fall. She reports she has a history of unsteadiness attributed to fibromyalgia, says she was getting up from her wheelchair and fell, landing onto her left hip. She has been laying on the floor since yesterday, only able to take sips of water, unable to get up. She was brought in by EMS today, received 4 mg morphine x 2 IV for pain control. She is reporting left hip pain. Denies recent illness, fever/chills, chest pain, shortness of breath, dizziness preceding fall, abdominal pain, change in bowel or bladder function, distal numbness. Related Data Home Medications Medication Instructions Recorded Confirmed cholecalciferol (vitamin D3) 10 800 unit PO DAILY 12/06/13 12/31/23 mcg (400 unit) tablet (Vitamin D3) ferrous sulfate 325 mg (65 mg 325 mg PO TID 12/06/13 12/31/23 iron) tablet glucosamine sulfate 2KCl 1,000 mg 500 mg PO BID 12/06/13 12/31/23 tablet ascorbic acid (vitamin C) 1,000 mg 4,000 mg PO DAILY 03/22/14 12/31/23 tablet duloxetine 60 mg capsule,delayed 60 mg PO DAILY 11/15/16 12/31/23 release (Cymbalta) medroxyprogesterone 2.5 mg tablet 2.5 mg PO DAILY 11/18/16 12/31/23 (Provera) potassium chloride 20 mEq 20 meq PO TID 11/25/16 12/31/23 tablet,extended release(part/cryst) fluticasone propionate 50 0 spray intranasal BID 09/19/20 12/31/23 mcg/actuation nasal spray,suspension duloxetine 30 mg capsule,delayed 30 mg PO DAILY 03/19/22 12/31/23 release quetiapine 50 mg tablet 50 mg PO QPM 03/19/22 12/31/23 trazodone 100 mg tablet 200 mg PO HS 03/19/22 12/31/23 albuterol sulfate 90 mcg/actuation 2 puff inhalation Q4H PRN PRN #0 03/22/22 12/31/23 aerosol inhaler (Ventolin HFA) grams esomeprazole magnesium 40 mg 40 mg PO DAILY@0730 #0 caps 03/22/22 12/31/23 capsule,delayed release (Nexium) calcitonin (salmon) 200 1 spray NS DAILY #3.7 mL 08/02/23 12/31/23 unit/actuation nasal spray cyanocobalamin (vitamin B-12) 500 500 mcg PO DAILY #30 tabs 08/02/23 12/31/23 mcg tablet (Vitamin B-12) cyclosporine 0.05 % eye drops in a 8 drp OU BID #30 ea 08/02/23 12/31/23 dropperette gabapentin 100 mg capsule 100 mg PO TID #90 caps 08/02/23 12/31/23 hydrocodone 5 mg-acetaminophen 325 1 tab PO Q6H PRN #20 tabs 08/02/23 12/31/23 mg tablet sucralfate 1 gram tablet 1 g PO AC & HS #120 tabs 08/02/23 12/31/23 biotin 1 mg capsule 1 mg PO DAILY 10/18/23 12/31/23 ginkgo biloba 40 mg tablet 40 mg PO DAILY 10/18/23 12/31/23 lutein 6 mg capsule 6 mg PO DAILY 10/18/23 12/31/23 magnesium 250 mg tablet 500 mg PO DAILY 10/18/23 11/25/23 vit B complex 100 combo no.2 100 tab PO 10/18/23 11/25/23 mg tablet,extended release (Balanced B-100 Complex) vitamin A 2,400 mcg capsule 2,400 mcg PO DAILY 10/18/23 12/31/23 vitamin E (dl, acetate) 45 mg (100 45 mg PO DAILY 10/18/23 12/31/23 unit) capsule zinc acetate 25 mg (zinc) capsule 25 mg PO DAILY 10/18/23 12/31/23 Previous Rx's Medication Instructions Recorded albuterol sulfate 90 mcg/actuation 2 puff inhalation Q4H PRN PRN #0 03/22/22 aerosol inhaler (Ventolin HFA) grams esomeprazole magnesium 40 mg 40 mg PO DAILY@0730 #0 caps 03/22/22 capsule,delayed release (Nexium) calcitonin (salmon) 200 1 spray NS DAILY #3.7 mL 08/02/23 unit/actuation nasal spray cyanocobalamin (vitamin B-12) 500 500 mcg PO DAILY #30 tabs 08/02/23 mcg tablet (Vitamin B-12) cyclosporine 0.05 % eye drops in a 8 drp OU BID #30 ea 08/02/23 dropperette gabapentin 100 mg capsule 100 mg PO TID #90 caps 08/02/23 hydrocodone 5 mg-acetaminophen 325 1 tab PO Q6H PRN #20 tabs 08/02/23 mg tablet sucralfate 1 gram tablet 1 g PO AC & HS #120 tabs 08/02/23 Allergies Allergy/AdvReac Type Severity Reaction Status Date / Time fentanyl AdvReac Nausea Verified 12/31/23 13:44 General Stated Complaint: Fall/Non TraumaCriteria MELISSA: 3 Review of Systems Narrative: see HPI Exam Const General: cooperative, comfortable and no acute distress Orientation: alert and awake [facility] Head: normal to inspection and atraumatic Ears: hearing grossly normal bilaterally General nose exam: external nose normal Face and sinus: normal facial exam and dry mucous membranes (slightly tacky) Resp Effort & Inspection: normal respiratory effort and able to speak in complete sentences Auscultation: clear to auscultation bilaterally Cardio Rate: regular rate Rhythm: regular rhythm Pulses: dorsalis pedis present GI Inspection: normal to inspection and no visible pulsation Palpation: soft, not firm and nontender Neuro Sensory Exam: no sensory deficits noted Extrem General: no pedal edema, no cyanosis and other (cool feet bilaterally, +distal pulses ) Other: L leg externally rotated, shortened Course Vital Signs Vital signs: Vital Signs Temperature 37.0 C 12/31/23 13:39 Pulse 104 H 12/31/23 13:39 Respiratory Rate 20 12/31/23 13:39 Pulse Oximetry 93 12/31/23 13:39 Temperature 37.0 C 12/31/23 13:39 Temperature Source Oral 12/31/23 13:39 Pulse 104 H 12/31/23 13:39 Respiratory Rate 20 12/31/23 13:39 Respiratory Effort Normal 12/31/23 13:43 Blood Pressure Position Supine 12/31/23 13:39 Pulse Oximetry 93 12/31/23 13:39 Oxygen Delivery Method Room Air 12/31/23 13:39 Oxygen Flow Rate 0 12/31/23 13:39 Medical Decision Making Elvi is an 83-year-old female with history of chronic colitis, hypertension, hyperlipidemia, fibromyalgia, and COPD who presents to the emergency department today for evaluation of left hip pain status post fall. She reports she has a history of unsteadiness attributed to fibromyalgia, says she was getting up from her wheelchair and fell, landing onto her left hip. She has been laying on the floor since yesterday, only able to take sips of water, unable to get up. She was brought in by EMS today, received 4 mg morphine x 2 IV for pain control. She is reporting left hip pain. Denies recent illness, fever/chills, chest pain, shortness of breath, dizziness preceding fall, abdominal pain, change in bowel or bladder function, distal numbness. Physical exam remarkable for shortened and externally rotated left leg. Feet are cool bilaterally, distal pulses intact. Sensation grossly intact. Patient has tacky mucous membranes. Easy work of breathing, lung sounds clear bilaterally. Normal heart sounds. Abdomen is soft, nondistended, nontender to palpation. No tenderness or instability with compression of pelvic girdle. History and presentation concerning for hip fracture with possible rhabdomyolysis/dehydration/electrolyte imbalance from immobility. I independently interpreted the following tests: CBC reassuring, CMP notable for hypocalcemia, 8.1 today. Slightly decreased to 8.2 on 08/02/2023. CPK slightly elevated at 303 UA consistent with UTI, with small leuks and 20-50 white blood cells. X-ray significant for left hip fracture. Awaiting radiologist interpretation While in the emergency department Elvi received IV morphine 4 mg as needed for pain control and normal saline for rehydration. Ceftriaxone given for treatment of UTI Presented case to Dr. Vicente, hospitalist. Patient to be admitted under [facility] pitalist service with orthopedics consult for hip fx. Quality:SDOH Health Related Social Needs: No Data to Display PFSH All Active Problems (Updated 12/31/23 @ 16:26 by Stefanie Morrell) Elevated CK (Acute) Closed fracture of left hip (Acute) Acute UTI (Acute) Skin ulcer (Acute) Palliative care patient (Acute) Palliative care encounter (Acute) DNR (do not resuscitate) (Acute) Chronic pain (Chronic) E. 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 fell down and could not get up Hypertension (Chronic) with labile blood pressure. Morbid obesity (Chronic) Allergic rhinitis (Chronic) Hyperlipidemia (Chronic) History of anemia (Chronic) Fibromyalgia (Chronic) DJD (degenerative joint disease) (Chronic) Chronic depression (Chronic) Insomnia (Chronic) Gastroesophageal reflux disease (Chronic) Hiatal hernia (Chronic) Irritable bowel syndrome (Chronic) History of surgery (Chronic) a. S/P open right ankle fracture/dislocation. b. Left knee arthroscopy. c. Right wrist fracture repair. d. T/A as a child. Dehydration, mild (Acute 09/22/14) Housing or economic circumstance (Chronic 09/22/14) a. No heat for 1-1/2 days H/O fall (Chronic) Anemia (Chronic) Alcohol withdrawal delirium (Acute 09/22/14) Rhabdomyolysis (Acute 09/22/14) Ataxia (Chronic) COPD (chronic obstructive pulmonary disease) (Chronic) Onychomycosis (Chronic) Depression (Chronic) Medical History Frequent falls Alcohol withdrawal NSIP (nonspecific interstitial pneumonia) Fracture of right inferior pubic ramus Fracture of right superior pubic ramus ACP (advance care planning) Alcohol use disorder Laceration of skin of right forearm Skin ulcer of lower leg DVT prophylaxis Interstitial lung disease Laceration of arm, right, complicated Fractured pelvis T12 compression fracture Acute exacerbation of chronic low back pain Fall Alcohol dependence Person living alone (09/22/14) Hiatal hernia IBS (irritable bowel syndrome) Hypertension Allergic rhinitis GERD (gastroesophageal reflux disease) DJD (degenerative joint disease) Hyperlipidemia Hypercholesterolemia Fibromyalgia Depression Anemia Alcohol abuse Insomnia Surgical History Tonsillectomy and adenoidectomy Repair fracture right wrist ORIF right ankle Colonoscopy - MAC (11/18/16) Arthroplasty of knee left Family History Mother Dementia Maternal Aunt Diabetes Social History Smoking/Tobacco Use Status: Former Tobacco Use Smoking risk assessment performed?: Yes Alcohol Intake: current Alcohol Intake frequency: 0-2 drinks per day Alcohol type: wine Counseling given: Yes Details: 1-2 bottle of wine/day Drug use: Daily Substance use type: does not use and marijuana Details: two tokes for sleep Housing: house Do you feel safe at home: Yes Do you feel safe in your relationship?: Yes Additional Social history: Lives alone in home in [facility], has a cat. States hasn't been out of house for a year. One sister in [place] Sign Out Sign Out Data: Sign Out Comment: Elvi is an 83-year-old female who presented to the emergency department via EMS after being found down by home health. She had a fall yesterday while getting up from her walker, losing her balance, landing on the left hip. She was down for a full day. Physical exam remarkable for externally rotated shortened left leg. Positive for fracture on x-ray. Workup significant for UTI, slightly elevated CPK. While in the emergency department she was given IV fluids for rehydration, morphine 4 mg for pain control as needed. Last updated by Stefanie Williamson at 12/31/23 16:06
--- NOTE | 2023-12-31 14:00 | DI.RAD_ITS ---
Exam(s) XR HIP LT COMPLETE AP PELVIS EXAM: XR HIP LT COMPLETE AP PELVIS CLINICAL HISTORY: L hip pain s/p fall. TECHNIQUE: 2D digital imaging was performed of the left hip. Three views were obtained. AP pelvis and lateral left hip views were obtained. COMPARISON: CR XR PELVIS AP from 07/25/2023 FINDINGS: BONES: There is an acute comminuted intertrochanteric fracture of the left femur. There is loss of t he normal femoral neck angle. There are old healed right superior and inferior pubic rami fractures. No bony destructive lesion is seen. The bones are osteopenic. JOINTS: No dislocation present. There are degenerative changes seen in the lower visualized lumbar sp ine. SOFT TISSUE: Normal. IMPRESSION: Acute comminuted intertrochanteric fracture of the left femur with varus angulation. Unremarkable ra diographs of the pelvis DATA REPOSITORY: RADIATION DOSE DELIVERED:
--- NOTE | 2023-12-31 14:25 | W.EDPROG ---
Date of service: 12/31/23 Time of Service: 14:26 Medical Decision Making I was asked to place an IV into this patient as she reportedly had difficult IV access. Using real-time ultrasound guidance I placed a right 20-gauge cephalic vein in the forearm IV. Chlorhexidine was used prior to IV placement. Sterile probe cover was in place. Sterile gel was used. IV placement was confirmed via bubble study. Patient tolerated the procedure well. Quality:[facility] Health Related Social Needs: No Data to Display Discharge Plan Discharge Details Chief Complaint: Fall/Non TraumaCriteria Primary Care Provider: Iesha Leary ED Provider: Stefanie Williamson Home Meds and New Rx's Prescriptions: No Action Balanced B-100 Complex 100 mg tablet extended release PO biotin 1 mg capsule 1 mg PO DAILY lutein 6 mg capsule 6 mg PO DAILY Rx Instructions: give with meal/snack vitamin A 2,400 mcg capsule 2,400 mcg PO DAILY ginkgo biloba 40 mg tablet 40 mg PO DAILY Rx Instructions: give with meal/snack magnesium 250 mg tablet 500 mg PO DAILY zinc acetate 25 mg (zinc) capsule 25 mg PO DAILY vitamin E (dl, acetate) 45 mg (100 unit) capsule 45 mg PO DAILY ferrous sulfate 325 MG tablet 325 mg PO TID cholecalciferol (vitamin D3) [Vitamin D3] 400 UNIT tablet 800 unit PO DAILY glucosamine sulfate 2KCl 1,000 MG tablet 500 mg PO BID ascorbic acid (vitamin C) 1,000 MG tablet 4,000 mg PO DAILY duloxetine [Cymbalta] 60 MG capsule,delayed release(DR/EC) 60 mg PO DAILY Rx Instructions: TAKES IN ADDITION TO A 30 MG CAP FOR A TOTAL OF 90 MG PO DAILY medroxyprogesterone [Provera] 2.5 MG tablet 2.5 mg PO DAILY quetiapine 50 mg tablet 50 mg PO QPM Patient Comments: TAKE ONE TABLET BY MOUTH EVERY EVENING duloxetine 30 mg capsule,delayed release(DR/EC) 30 mg PO DAILY Patient Comments: TAKE ONE CAPSULE BY MOUTH EVERY DAY WITH 60MG Rx Instructions: TAKES IN ADDITION TO A 60 MG CAP FOR A TOTAL OF 90 MG PO DAILY trazodone 100 mg tablet 200 mg PO HS Patient Comments: TAKE 2 TABLETS BY MOUTH EVERY NIGHT albuterol sulfate [Ventolin HFA] 90 mcg/actuation Hfa Aerosol Inhaler 2 puff inhalation Q4H PRN PRNQty: 0 0RF esomeprazole magnesium [Nexium] 40 mg Capsule,Delayed Release(Dr/Ec) 40 mg PO DAILY@0730 Qty: 0 0RF calcitonin (salmon) 200 unit/actuation [place],Non-Aerosol 1 spray NS DAILY Qty: 3.7 0RF cyanocobalamin (vitamin B-12) [Vitamin B-12] 500 mcg Tablet 500 mcg PO DAILY Qty: 30 0RF cyclosporine 0.05 % Dropperette 8 drp OU BID Qty: 30 0RF gabapentin 100 mg Capsule 100 mg PO TID Qty: 90 0RF sucralfate 1 gram Tablet 1 g PO AC & HS Qty: 120 0RF hydrocodone-acetaminophen 5-325 mg tablet 1 tab PO Q6H PRNQty: 20 0RF potassium chloride 20 MEQ tablet,ER particles/crystals 20 meq PO TID Rx Instructions: 20 MG PO TID DIRECTED fluticasone propionate 50 mcg/actuation spray,suspension 0 spray INTRANASAL BID Patient Comments: SPRAY ONE SPRAY IN EACH NOSTRIL TWICE A DAY Rx Instructions: ONE SPRAY EACH NOSTRIL BID lidocaine [Lidoderm] 1 PATCH patch 1 patch Topical Q24H Qty: 4 0RF
[2023-12-31] MEDS: MORPHine 4 MG/ML SYR IVP ×3 (14:32→21:59)
[2023-12-31 14:36] LABS: HCT 33.6 % (36.0-46.0); HGB 11.6 g/dL (11.2-15.7); MCH 34.9 pg (27.0-33.0); MCHC 34.5 % (32.0-36.0); MCV 101 fL (80-95); MPV 9.4 fL (8.0-11.0); Platelet Count 263 10^3/uL (130-400); RBC 3.32 10^6/uL (3.93-5.22); RDW 13.9 % (11.7-14.6); RDW-SD 51.3 fL; WBC 5.61 10^3/uL (4.4-10.8)
[2023-12-31 14:49] LABS: ALT 22 U/L (14-59); AST 41 U/L (15-37); Albumin 2.5 g/dL (3.4-5.0); Alkaline Phosphatase 172 U/L (46-116); Anion Gap 8.1 mmol/L (3-11); BUN 10 mg/dL (7-18); Bilirubin, Total 0.9 mg/dL (0.2-1.0); CO2 28.9 mmol/L (21.0-32.0); CREATININE 0.7 mg/dL (0.55-1.02); Calcium 8.1 mg/dL (8.5-10.1); Chloride 102 mmol/L (98-107); Creatine Kinase 303 U/L (26-192); Estimated GFR 85.76 (mL/min/1.73m2); Glucose 119 mg/dL (74-106); Potassium 3.8 mmol/L (3.5-5.1); Sodium 139 mmol/L (136-145); Total Protein 5.9 g/dL (6.4-8.2)
[2023-12-31 15:02] LABS: Bilirubin Moderate (Negative); Blood Trace-intact (Negative); Clarity Cloudy (Clear); Glucose 100 mg/dL (Negative); Ketones 80 mg/dL (Negative); Leukocyte Esterase Small (Negative); Nitrite Negative (Negative); Specific Gravity >= 1.030 (1.005-1.025)
[2023-12-31 15:11] LABS: Bacteria Moderate HPF (Negative); C & S Indicated? No/Sq. Contamination; Casts Negative LPF (Negative); Crystals Negative HPF (Negative); Epithelial Cells Many HPF (Negative); Mucus Negative (Negative); Other Cells Mod Transitional (Negative); RBC 0-2 HPF (0-2); WBC 20-50 HPF (0-5)
[2023-12-31] MEDS: Normal Saline 1,000 ML 500 ML IV (15:38)
[2023-12-31] MEDS: cefTRIAXone 1 GM/50 ML BAG IVPB (15:57)
--- NOTE | 2023-12-31 16:39 | HPE_ITS ---
Date of service: 12/31/23 Time of Service: 16:39 Assessment and Plan Assessment and plan (1) Acute UTI: Status: Acute Assessment and plan: On ceftriaxone culture pending (2) Elevated CK: Status: Acute Assessment and plan: At 303, not meeting treshold for rhabdomyolysis but might be dealyed Will give IVF CMP in AM CK in AM (3) Closed fracture of left hip: Status: Acute Assessment and plan: Orthopedics consult Pain management: home dose opioids, PRN morphine, NPO post midnight for possible OR on 12/31 (4) Alcohol withdrawal: Assessment and plan: CIWA score Tele if positive score PRN phenobarbital bolus as per protocole if the patient scores; 6 mg/kg not above 15mg/kg total during stay Qualifiers: Complication of substance-induced condition: uncomplicated Qualified Code(s): F10.930 - Alcohol use, unspecified with withdrawal, uncomplicated (5) On deep vein thrombosis (DVT) prophylaxis: Status: Acute Assessment and plan: On SC heparin hold AM dose (6) Discharge planning issues: Status: Acute Assessment and plan: CM to f/u Home with PT VS short term rehab Discussed with Dr Vicente History of Present Illness History of Present Illness Chief Complaint: left hip pain Narrative: This 83-year-old female patient with a past medical history of alcohol use disorder, on chronic opioids for pain from fibromyalgia, hypertension, interstitial lung disease, homebound and living alone with chronic wheelchair use, COPD, presented to the in the ED at [facility] via EMS with the administration of morphine 4 mg IV x 2 for left hip pain s/p fall after getting up from her wheelchair falling and landing on her left hip. The patient reported laying on the floor since yesterday with only sips of water. In the emergency room the patient denied recent illness, chills, fever, chest pain, shortness of breath, dizziness prior to fall, abdominal pain, and change in bowel and bladder bladder function as well as distal numbness. Imaging in the ED revealed left and intertrochanteric fracture with varus angulation. Labs in the emergency room were remarkable for AST 41, creatinine kinase 2 3, glucose of 119. Urinalysis was positive for small amount of leukocyte esterase and nitrite negative. Hospitalist was consulted and patient admitted to the medical surgical floor for evaluation and management of left hip fracture, UTI, EtOH withdrawal. Orthopedics consultation was initiated by the hospitalist. IV fluid and IV ceftriaxone were initiated. Patient again confirmed that she got up from the wheelchair tried to grab onto emmanuel and items at home without using a walker and then fell. At that time she denied change in vision, dizziness, chest pain, nausea, vomiting, diarrhea, constipation or dysuria. When asked about her stopping and restarting it during her stay in the hospital the patient said no. The patient patient is not requiring CPR and he is a DNR. When asked about assistance from the machine to assist in reading even for a few days the patient said no, that the patient is also DNI. Patient also informed that she she will see the orthopedic surgeon and probably will be in need of surgery to repair of the for fracture, also aware of treatment of UTI with antibiotics, and all also made aware of possible treatment for alcohol withdrawal symptoms while in the hospital. The patient stated that her last drink was a week ago. Review of Systems All systems reviewed & are unremarkable except as noted in HPI and below PFSH All Active Problems (Updated 12/31/23 @ 17:14 by Fior Graves APRN) Discharge planning issues (Acute) On deep vein thrombosis (DVT) prophylaxis (Acute) Elevated CK (Acute) Closed fracture of left hip (Acute) Acute UTI (Acute) Skin ulcer (Acute) Palliative care patient (Acute) Palliative care encounter (Acute) DNR (do not resuscitate) (Acute) Chronic pain (Chronic) E. 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 fell down and could not get up Hypertension (Chronic) with labile blood pressure. Morbid obesity (Chronic) Allergic rhinitis (Chronic) Hyperlipidemia (Chronic) History of anemia (Chronic) Fibromyalgia (Chronic) DJD (degenerative joint disease) (Chronic) Chronic depression (Chronic) Insomnia (Chronic) Gastroesophageal reflux disease (Chronic) Hiatal hernia (Chronic) Irritable bowel syndrome (Chronic) History of surgery (Chronic) a. S/P open right ankle fracture/dislocation. b. Left knee arthroscopy. c. Right wrist fracture repair. d. T/A as a child. Dehydration, mild (Acute 09/22/14) Housing or economic circumstance (Chronic 09/22/14) a. No heat for 1-1/2 days H/O fall (Chronic) Anemia (Chronic) Alcohol withdrawal delirium (Acute 09/22/14) Rhabdomyolysis (Acute 09/22/14) Ataxia (Chronic) COPD (chronic obstructive pulmonary disease) (Chronic) Onychomycosis (Chronic) Depression (Chronic) Medical History Frequent falls Alcohol withdrawal NSIP (nonspecific interstitial pneumonia) Fracture of right inferior pubic ramus Fracture of right superior pubic ramus ACP (advance care planning) Alcohol use disorder Laceration of skin of right forearm Skin ulcer of lower leg DVT prophylaxis Interstitial lung disease Laceration of arm, right, complicated Fractured pelvis T12 compression fracture Acute exacerbation of chronic low back pain Fall Alcohol dependence Person living alone (09/22/14) Hiatal hernia IBS (irritable bowel syndrome) Hypertension Allergic rhinitis GERD (gastroesophageal reflux disease) DJD (degenerative joint disease) Hyperlipidemia Hypercholesterolemia Fibromyalgia Depression Anemia Alcohol abuse Insomnia Surgical History Tonsillectomy and adenoidectomy Repair fracture right wrist ORIF right ankle Colonoscopy - MAC (11/18/16) Arthroplasty of knee left Family History Mother Dementia Maternal Aunt Diabetes Social History Smoking/Tobacco Use Status: Former Tobacco Use Smoking risk assessment performed?: Yes Alcohol Intake: current Alcohol Intake frequency: 0-2 drinks per day Alcohol type: wine Counseling given: Yes Details: 1-2 bottle of wine/day Drug use: Daily Substance use type: does not use and marijuana Details: two tokes for sleep Housing: house Do you feel safe at home: Yes Do you feel safe in your relationship?: Yes Additional Social history: Lives alone in home in [facility], has a cat. States hasn't been out of house for a year. One sister in [place] Meds Allergies and Home Medications Allergies Allergy/AdvReac Type Severity Reaction Status Date / Time fentanyl AdvReac Nausea Verified 12/31/23 13:44 Home Medications Medication Instructions Recorded Confirmed Type cholecalciferol (vitamin D3) 10 800 unit PO DAILY 12/06/13 12/31/23 History mcg (400 unit) tablet (Vitamin D3) ferrous sulfate 325 mg (65 mg 325 mg PO TID 12/06/13 12/31/23 History iron) tablet glucosamine sulfate 2KCl 1,000 mg 500 mg PO BID 12/06/13 12/31/23 History tablet ascorbic acid (vitamin C) 1,000 mg 4,000 mg PO DAILY 03/22/14 12/31/23 History tablet duloxetine 60 mg capsule,delayed 60 mg PO DAILY 11/15/16 12/31/23 History release (Cymbalta) medroxyprogesterone 2.5 mg tablet 2.5 mg PO DAILY 11/18/16 12/31/23 History (Provera) potassium chloride 20 mEq 20 meq PO TID 11/25/16 12/31/23 History tablet,extended release(part/cryst) fluticasone propionate 50 0 spray intranasal BID 09/19/20 12/31/23 History mcg/actuation nasal spray,suspension duloxetine 30 mg capsule,delayed 30 mg PO DAILY 03/19/22 12/31/23 History release quetiapine 50 mg tablet 50 mg PO QPM 03/19/22 12/31/23 History trazodone 100 mg tablet 200 mg PO HS 03/19/22 12/31/23 History albuterol sulfate 90 mcg/actuation 2 puff inhalation Q4H PRN PRN #0 03/22/22 12/31/23 Rx aerosol inhaler (Ventolin HFA) grams esomeprazole magnesium 40 mg 40 mg PO DAILY@0730 #0 caps 03/22/22 12/31/23 Rx capsule,delayed release (Nexium) calcitonin (salmon) 200 1 spray NS DAILY #3.7 mL 08/02/23 12/31/23 Rx unit/actuation nasal spray cyanocobalamin (vitamin B-12) 500 500 mcg PO DAILY #30 tabs 08/02/23 12/31/23 Rx mcg tablet (Vitamin B-12) cyclosporine 0.05 % eye drops in a 8 drp OU BID #30 ea 08/02/23 12/31/23 Rx dropperette gabapentin 100 mg capsule 100 mg PO TID #90 caps 08/02/23 12/31/23 Rx hydrocodone 5 mg-acetaminophen 325 1 tab PO Q6H PRN #20 tabs 08/02/23 12/31/23 Rx mg tablet sucralfate 1 gram tablet 1 g PO AC & HS #120 tabs 08/02/23 12/31/23 Rx biotin 1 mg capsule 1 mg PO DAILY 10/18/23 12/31/23 History ginkgo biloba 40 mg tablet 40 mg PO DAILY 10/18/23 12/31/23 History lutein 6 mg capsule 6 mg PO DAILY 10/18/23 12/31/23 History magnesium 250 mg tablet 500 mg PO DAILY 10/18/23 11/25/23 History vit B complex 100 combo no.2 100 tab PO 10/18/23 11/25/23 History mg tablet,extended release (Balanced B-100 Complex) vitamin A 2,400 mcg capsule 2,400 mcg PO DAILY 10/18/23 12/31/23 History vitamin E (dl, acetate) 45 mg (100 45 mg PO DAILY 10/18/23 12/31/23 History unit) capsule zinc acetate 25 mg (zinc) capsule 25 mg PO DAILY 10/18/23 12/31/23 History Exam Narrative Exam Narrative: Constitutional The patient appears restless, without acute distress HENMT: Head is atraumatic, normocephalic, no lymphadenopathy. Facial structures with normal appearance Eyes: Well aligned, intact ROM Neck:No meningeal signs Neuro:alert and oriented to self, person, place and situation. No focal deficits observed Resp: On O2 supplementation, 3-4 word-sentences, clear anterior lungs bilaterally, diminished posterior bases Cardio: regular rhythm, S1, S2, no murmur, capillary refill<3 sec., bilateral radial and dorsalis pedis pulses are positive, palpable GI: Abdomen is not distended, soft w/o abd pain, bowel sounds are present Integumentary: left leg and right ankle mepilex in place on chronic wound treated by , dry mucous membranes Extremities: deferred, left LE is misaligned and difficult to move, can move right leg Psych: RASS 0, congruent mood and normal affect. Results Labs 12/31/23 14:20 12/31/23 14:20 Labs: Laboratory Results - last 24 hr 12/31/23 12/31/23 14:20 14:35 WBC 5.61 RBC 3.32 L Hgb 11.6 Hct 33.6 L MCV 101 H MCH 34.9 H MCHC 34.5 RDW 13.9 Plt Count 263 MPV 9.4 Sodium 139 Potassium 3.8 Chloride 102 Carbon Dioxide 28.9 Anion Gap 8.1 BUN 10 Creatinine 0.7 Est GFR (CKD-EPI 2020) 85.76 Glucose 119 H Calcium 8.1 L Total Bilirubin 0.9 AST 41 H ALT 22 Alkaline Phosphatase 172 H Creatine Kinase 303 H Total Protein 5.9 L Albumin 2.5 L Urine Color Yellow Urine Clarity Cloudy Urine pH 6.0 Ur Specific [place] >= 1.030 H Urine Protein 30 H Urine Ketones 80 H Urine Blood Trace-intact H Urine Nitrite Negative Urine Bilirubin Moderate H Urine Urobilinogen 1.0 H Ur Leukocyte Esterase Small H Urine RBC 0-2 Urine WBC 20-50 H Ur Epithelial Cells Many Urine Crystals Negative Urine Bacteria Moderate Urine Casts Negative Urine Mucus Negative Urine Other Mod Transitional Ur Culture Indicated? No/Sq. Contamination Urine Glucose 100 H Last Vital Signs Temp 37.0 C 12/31/23 13:39 Pulse 99 H 12/31/23 15:01 Resp 20 12/31/23 13:39 BP 147/77 H 12/31/23 15:01 Pulse Ox 91 L 12/31/23 14:40 Time Spent Time spent with Patient: >75 minutes Time was spent: preparing to see the patient(eg.review tests), obtaining and/or reviewing separately otained hiistory, ordering medications,tests, procedures, referring, communicating with other health home care physical therapist, indepentently interpreting results, counseling the patient and care coordination
--- NOTE | 2023-12-31 16:58 | DI.VRAD_ITS ---
PROCEDURE INFORMATION: Exam: XR Left Hip Exam date and time: 12/31/2023 3:19 PM Age: 83 years old Clinical indication: Injury or trauma; Other: L hip pain S/P fall TECHNIQUE: Imaging protocol: Radiologic exam of the left hip. Views: 2 or 3 views hip with pelvis when performed. COMPARISON: CR XR PELVIS AP 07/25/2023 5:33 PM FINDINGS: Bones/joints: Demineralization of the visualized bones. There is a left intertrochanteric fracture with varus angulation. Moderate degenerative disease of bilateral hip joints. Bilateral femoral head osteonecrosis. Old right superior and inferior pubic rami fractures. Moderate degenerative disease of the lower lumbar spine. Soft tissues: Unremarkable. Vasculature: Pelvic phleboliths. IMPRESSION: Left intertrochanteric fracture with varus angulation. Dictated and Authenticated by: Andrew Gottlieb MD. Ordering:LAINA Watts MD
--- NOTE | 2023-12-31 18:59 | W.PC.ACHO ---
Registration Status: REG ER Primary Language: Preferred Language: [place] ED Information & Data Chief Complaint Fall/Non TraumaCriteria 12/31/23 13:55 Triage Note pt lives at home alone, fell 12/31/23 13:39 last night and was found at home health this afternoon. Left leg affected, shortening noted. EMS gave 8mg of morphine ivp. Pt has a hx of pelvic fx, ankle fx. EMS states left leg cold to the touch. No CP or SOB. Medical / Surgical History (Last Reviewed 11/28/23 @ 10:33 by Hailey Collier NP) Frequent falls Alcohol withdrawal NSIP (nonspecific interstitial pneumonia) Fracture of right inferior pubic ramus Fracture of right superior pubic ramus ACP (advance care planning) Alcohol use disorder Laceration of skin of right forearm Skin ulcer of lower leg DVT prophylaxis Interstitial lung disease Laceration of arm, right, complicated Fractured pelvis T12 compression fracture Acute exacerbation of chronic low back pain Fall Alcohol dependence Person living alone (09/22/14) Hiatal hernia IBS (irritable bowel syndrome) Hypertension Allergic rhinitis GERD (gastroesophageal reflux disease) DJD (degenerative joint disease) Hyperlipidemia Hypercholesterolemia Fibromyalgia Depression Anemia Alcohol abuse Insomnia (Last Reviewed 11/28/23 @ 10:33 by Hailey Collier NP) Tonsillectomy and adenoidectomy Repair fracture right wrist ORIF right ankle Colonoscopy - MAC (11/18/16) Arthroplasty of knee Most Recent Vital Signs Temperature 37.0 C 12/31/23 13:39 Temperature Source Oral 12/31/23 13:39 Pulse 99 H 12/31/23 15:01 Pulse 100 H 12/31/23 15:30 Respiratory Rate 20 12/31/23 13:39 Respiratory Effort Normal 12/31/23 13:43 Blood Pressure 147/77 H 12/31/23 15:01 Blood Pressure Mean 100 12/31/23 15:01 Blood Pressure Position Supine 12/31/23 13:39 Pulse Oximetry 91 L 12/31/23 14:40 Oxygen Delivery Method Room Air 12/31/23 13:39 Oxygen Flow Rate 0 12/31/23 13:39 Pain Level 8 12/31/23 18:11 Allergies fentanyl Adverse Reaction (Verified 12/31/23 13:44) Nausea Precautions Isolation Standard precaution 12/31/23 13:43 Active Medications Generic Name Dose Route Start Last Admin Trade Name Freq PRN Reason Stop Dose Admin Morphine Sulfate 4 mg 12/31/23 13:49 12/31/23 18:11 Morphine 4 Mg/Ml Syr IVP 4 mg Q2H PRN PRN Administration IV IV Catheter Type [Left Wrist] Saline Lock IV Catheter Type [Right Saline Lock Antecubital] IV Catheter Gauge [Left Wrist] 22 IV Catheter Gauge [Right 20 Antecubital] Diagnostics 12/31/23 12/31/23 Range/Units 14:35 14:20 WBC 5.61 (4.4-10.8) 10^3/uL RBC 3.32 L (3.93-5.22) 10^6/uL Hgb 11.6 (11.2-15.7) g/dL Hct 33.6 L (36.0-46.0) % MCV 101 H (80-95) fL MCH 34.9 H (27.0-33.0) pg MCHC 34.5 (32.0-36.0) % RDW 13.9 (11.7-14.6) % Plt Count 263 (130-400) 10^3/uL MPV 9.4 (8.0-11.0) fL Sodium 139 (136-145) mmol/L Potassium 3.8 (3.5-5.1) mmol/L Chloride 102 (98-107) mmol/L Carbon Dioxide 28.9 (21.0-32.0) mmol/L Anion Gap 8.1 (3-11) mmol/L BUN 10 (7-18) mg/dL Creatinine 0.7 (0.55-1.02) mg/dL Est GFR (CKD-EPI 2020) 85.76 (mL/min/1.73m2) Glucose 119 H (74-106) mg/dL Calcium 8.1 L (8.5-10.1) mg/dL Total Bilirubin 0.9 (0.2-1.0) mg/dL AST 41 H (15-37) U/L ALT 22 (14-59) U/L Alkaline Phosphatase 172 H (46-116) U/L Creatine Kinase 303 H (26-192) U/L Total Protein 5.9 L (6.4-8.2) g/dL Albumin 2.5 L (3.4-5.0) g/dL Urine Color Yellow (Yellow) Urine Clarity Cloudy (Clear) Urine pH 6.0 (5-8) Ur Specific [place] >= 1.030 H (1.005-1.025) Urine Protein 30 H (Neg-Trace) mg/dL Urine Ketones 80 H (Negative) mg/dL Urine Blood Trace-intact H (Negative) Urine Nitrite Negative (Negative) Urine Bilirubin Moderate H (Negative) Urine Urobilinogen 1.0 H (Up to 0.2) mg/dL Ur Leukocyte Esterase Small H (Negative) Urine RBC 0-2 (0-2) HPF Urine WBC 20-50 H (0-5) HPF Ur Epithelial Cells Many (Negative) HPF Urine Crystals Negative (Negative) HPF Urine Bacteria Moderate (Negative) HPF Urine Casts Negative (Negative) LPF Urine Mucus Negative (Negative) Urine Other Mod Transitional (Negative) Ur Culture Indicated? No/Sq. Contamination Urine Glucose 100 H (Negative) mg/dL Intake and Output - 24 Hour Total 12/31/23 13:36 thru 12/31/23 18:19 Intake Total 1050 Balance 1050 Weight 85.2 kg Intake: IV 1050 Other: Urine Color Yellow Urinary Catheter Urinary Catheter Date of 12/31/23 Insertion [Uretheral (Harris)] Time of insertion [Uretheral ( 14:55 Harris)] Falls Risk Assessment History of Falls Previous History 12/31/23 14:33 Contributing Factors Impairments 12/31/23 14:33 Ambulatory Aids Uses ambulatory device + 12/31/23 14:33 Tubes/Lines None 12/31/23 14:33 Gait Evaluation W/any additional score 12/31/23 14:33 Cognition No cognitive impairment 12/31/23 14:33 Fall Total Score 68 12/31/23 14:33 Level of Risk High Risk 12/31/23 14:33 Problems (Last Reviewed 11/28/23 @ 10:33 by Hailey Collier NP) Discharge planning issues (Acute) On deep vein thrombosis (DVT) prophylaxis (Acute) Elevated CK (Acute) Closed fracture of left hip (Acute) Acute UTI (Acute) v v v v v v v v v Sending and/or Receiving Nurses: Please use comment section below to note any information pertinent to the patient hand-off not included above. Information / Comments: Report received from: Janessa Ferrari RN RN
[2023-12-31] MEDS: Sucralfate 1 GM TAB PO (21:56)
[2023-12-31] MEDS: Gabapentin 100 MG CAP PO (21:56)
[2023-12-31] MEDS: Docusate Sodium 100 MG CAP PO (21:56)
[2023-12-31] MEDS: QUEtiapine 50 MG TAB PO (21:57)
[2023-12-31] MEDS: Potassium Chloride 20 MEQ TABCR PO (21:57)
[2023-12-31] MEDS: Pantoprazole 40 MG VIAL IVP (21:57)
[2023-12-31] MEDS: Acetaminophen 325 MG TAB PO (21:57)
[2023-12-31] MEDS: traZODone 100 MG TAB 200 MG PO (21:57)
[2023-12-31] MEDS: PHENobarbital 200 MG in Normal Saline 50 ML 100 MG IVPB (21:57)
[2023-12-31] MEDS: HYDROcodone 5/Acetaminophen 325 TAB PO (21:57)
[2023-12-31] MEDS: Ketorolac 15 MG/ML VIAL IVP (21:58)
[2023-12-31] MEDS: Heparin 5,000 UNITS/ML VIAL 5000 UNITS SC (21:58)
[2023-12-31] MEDS: Ferrous Sulfate 325 MG TAB PO (22:00)
[2023-12-31] MEDS: Normal Saline Flush 10 ML SYR (22:39)
[2024-01-01] VITALS (137 sets, daily range): BP systolic 71–185; BP diastolic 43–151; PULSE 67–114; RESP 8–29; TEMP 36–37.4; O2SAT 77–100; BMI 28.8
[2024-01-01] MEDS: Normal Saline Flush 10 ML SYR ×2 (00:49→16:57)
[2024-01-01] MEDS: Lactated Ringers 1,000 ML 125 ML IV ×2 (02:15→06:33)
--- NOTE | 2024-01-01 06:46 | W.ORTHOCONSU ---
Date of service: 01/01/24 Time of Service: 07:10 History of Present Illness Narrative: Elvi is an 83-year-old female who has significant medical comorbidities. She has largely been relegated to a walker over the past few years, made worse by recent pelvic fractures from a fall in July 2023. She try to get out of her walker 2 days ago and when she stood she lost balance and fell onto her left side. She was unable to ambulate or get back to her chair and stayed on the ground for at least 1 day per her report. She was brought to the emergency department and diagnosed with a displaced intertrochanteric fracture of the left proximal femur. No other significant acute medical changes were identified. She does have a history of alcoholism and was admitted the hospital service for medical management as well as monitoring for potential alcohol withdrawal which she has had in previous hospital admissions. She was diagnosed with a urinary tract infection and was started on antibiotics. She was also given IV fluid rehydration given the reported nature of this although with a relatively low CPK. She is a DNR/DNI and has been seen by palliative care given her general health decline and recent hospital admission. Consults Consult date: 12/31/23 Requesting physician: Stefanie Morrell Consult Reason Left hip fracture Assessment and Plan Assessment and plan (1) Intertrochanteric fracture of left femur: Status: Acute Assessment and plan: Elvi is an 83-year-old female who suffered a fracture about the left proximal femur. There is a displaced intertrochanteric femur fracture which should be fixed for pain control and potential mobilization. However, her mobilization is very limited already and honestly to be very unlikely that she is going to regain anything more than what she was doing before this fall. This is also complicated by contractures of the leg as well as chronic stasis ulcers. Nevertheless, from a palliative perspective try to fix the fracture would help control pain. However, it does come with some risk. I briefly reviewed some of the risk included with fracture fixation including bleeding, infection, hardware pain, residual pain, weakness, stiffness, iatrogenic fracture, postoperative fracture from recurrent fall, malunion, nonunion, hardware failure, need for repeat procedures, blood clot, cardiopulmonary demise. Given all this information she would like to proceed with fixation of the left femur fracture for pain control and also her ability to hopefully mobilize back into a wheelchair. She will rescind her DNR/DNI for the procedure itself. I will have anesthesia see her given her ongoing low urine output, hypotension, and history of poor lungs include interstitial lung disease and COPD. She will remain NPO. Hold anticoagulation. After the surgery she will be weightbearing as tolerated and anticoagulation may resume in the evening. Qualifiers: Encounter type: initial encounter Fracture alignment: displaced Fracture type: closed Qualified Code(s): S72.142A - Displaced intertrochanteric fracture of left femur, initial encounter for closed fracture Review of Systems All systems reviewed & are unremarkable except as noted in HPI and below PFSH All Active Problems (Updated 01/01/24 @ 06:53 by Star Lucia MD) Intertrochanteric fracture of left femur (Acute) Discharge planning issues (Acute) On deep vein thrombosis (DVT) prophylaxis (Acute) Elevated CK (Acute) Closed fracture of left hip (Acute) Acute UTI (Acute) Skin ulcer (Acute) Palliative care patient (Acute) Palliative care encounter (Acute) DNR (do not resuscitate) (Acute) Chronic pain (Chronic) E. 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 fell down and could not get up Hypertension (Chronic) with labile blood pressure. Morbid obesity (Chronic) Allergic rhinitis (Chronic) Hyperlipidemia (Chronic) History of anemia (Chronic) Fibromyalgia (Chronic) DJD (degenerative joint disease) (Chronic) Chronic depression (Chronic) Insomnia (Chronic) Gastroesophageal reflux disease (Chronic) Hiatal hernia (Chronic) Irritable bowel syndrome (Chronic) History of surgery (Chronic) a. S/P open right ankle fracture/dislocation. b. Left knee arthroscopy. c. Right wrist fracture repair. d. T/A as a child. Dehydration, mild (Acute 09/22/14) Housing or economic circumstance (Chronic 09/22/14) a. No heat for 1-1/2 days H/O fall (Chronic) Anemia (Chronic) Alcohol withdrawal delirium (Acute 09/22/14) Rhabdomyolysis (Acute 09/22/14) Ataxia (Chronic) COPD (chronic obstructive pulmonary disease) (Chronic) Onychomycosis (Chronic) Depression (Chronic) Medical History Frequent falls Alcohol withdrawal NSIP (nonspecific interstitial pneumonia) Fracture of right inferior pubic ramus Fracture of right superior pubic ramus ACP (advance care planning) Alcohol use disorder Laceration of skin of right forearm Skin ulcer of lower leg DVT prophylaxis Interstitial lung disease Laceration of arm, right, complicated Fractured pelvis T12 compression fracture Acute exacerbation of chronic low back pain Fall Alcohol dependence Person living alone (09/22/14) Hiatal hernia IBS (irritable bowel syndrome) Hypertension Allergic rhinitis GERD (gastroesophageal reflux disease) DJD (degenerative joint disease) Hyperlipidemia Hypercholesterolemia Fibromyalgia Depression Anemia Alcohol abuse Insomnia Surgical History Tonsillectomy and adenoidectomy Repair fracture right wrist ORIF right ankle Colonoscopy - MAC (11/18/16) Arthroplasty of knee left Family History Mother Dementia Maternal Aunt Diabetes Social History Smoking/Tobacco Use Status: Former Tobacco Use Smoking risk assessment performed?: Yes Alcohol Intake: current Alcohol Intake frequency: 0-2 drinks per day Alcohol type: wine Counseling given: Yes Details: 1-2 bottle of wine/day Drug use: Daily Substance use type: does not use and marijuana Details: two tokes for sleep Housing: house Do you feel safe at home: Yes Do you feel safe in your relationship?: Yes Additional Social history: Lives alone in home in [facility], has a cat. States hasn't been out of house for a year. One sister in [place] Exam Narrative Exam Narrative: Laying in the supine position in the hospital bed. No acute distress. Alert and orient x 3. The left lower extremity is shortened and externally rotated with flexion at the left knee. There are 2 chronic appearing venous stasis ulcers over the anterior aspect the distal left leg and the anteromedial aspect of the right leg approaching the ankle. No surrounding erythema or signs of active infection. Significant atrophy seen in both legs. She is able to weakly extend and flex the great toe on the left side as well as flex and extend the ankle. Unable to appreciate palpable DP PT pulses. Dysesthesias noted in the feet but grossly intact to light touch of the superficial peroneal neuro, deep peroneal and tibial nerves. Results Last Vital Signs Temp 36 C L 01/01/24 03:59 Pulse 92 H 01/01/24 06:29 Resp 14 01/01/24 06:29 BP 84/62 L 01/01/24 06:29 Pulse Ox 96 01/01/24 06:29 Labs 01/01/24 05:36 01/01/24 05:36 Labs: Laboratory Results - last 24 hr 12/31/23 12/31/23 14:20 14:35 WBC 5.61 RBC 3.32 L Hgb 11.6 Hct 33.6 L MCV 101 H MCH 34.9 H MCHC 34.5 RDW 13.9 Plt Count 263 MPV 9.4 Sodium 139 Potassium 3.8 Chloride 102 Carbon Dioxide 28.9 Anion Gap 8.1 BUN 10 Creatinine 0.7 Est GFR (CKD-EPI 2020) 85.76 Glucose 119 H Calcium 8.1 L Total Bilirubin 0.9 AST 41 H ALT 22 Alkaline Phosphatase 172 H Creatine Kinase 303 H Total Protein 5.9 L Albumin 2.5 L Urine Color Yellow Urine Clarity Cloudy Urine pH 6.0 Ur Specific [place] >= 1.030 H Urine Protein 30 H Urine Ketones 80 H Urine Blood Trace-intact H Urine Nitrite Negative Urine Bilirubin Moderate H Urine Urobilinogen 1.0 H Ur Leukocyte Esterase Small H Urine RBC 0-2 Urine WBC 20-50 H Ur Epithelial Cells Many Urine Crystals Negative Urine Bacteria Moderate Urine Casts Negative Urine Mucus Negative Urine Other Mod Transitional Ur Culture Indicated? No/Sq. Contamination Urine Glucose 100 H Imaging Imaging Studies: X-ray of the left hip, femur, and pelvis was reviewed. This demonstrates a intertrochanteric fracture of the left hip with notable shortening and displacement. Significant osteopenia seen about the bones. No distal extension within the femur.
[2024-01-01 07:04] LABS: Abs Immature Grans 0.02 10^3/uL (0.0-0.06); Absolute Basophil Count 0.01 10^3/uL (0.0-0.2); Absolute Eosinophil Count 0.16 10^3/uL (0.0-0.7); Absolute Lymphocyte Count 1.56 10^3/uL (1.2-3.4); Absolute Neutrophil Count 2.14 10^3/uL (1.2-6.7); Basophils % 0.2 %; Eosinophils % 3.3 %; HCT 28.1 % (36.0-46.0); HGB 9.1 g/dL (11.2-15.7); Immature Grans % 0.4 %; Lymphocytes % 32.6 %; MCH 34.3 pg (27.0-33.0); MCHC 32.4 % (32.0-36.0); MPV 10.7 fL (8.0-11.0); Monocytes % 18.8 %; Neutrophils % 44.7 %; Platelet Count 175 10^3/uL (130-400); RBC 2.65 10^6/uL (3.93-5.22); RDW 14.2 % (11.7-14.6); RDW-SD 55.1 fL; WBC 4.79 10^3/uL (4.4-10.8)
[2024-01-01 07:12] LABS: MCV 106 fL (80-95)
[2024-01-01] MEDS: Ketorolac 15 MG/ML VIAL IVP ×2 (07:25→17:18)
[2024-01-01 07:27] LABS: ALT 17 U/L (14-59); AST 32 U/L (15-37); Albumin 1.9 g/dL (3.4-5.0); Alkaline Phosphatase 141 U/L (46-116); Anion Gap 6.2 mmol/L (3-11); BUN 13 mg/dL (7-18); Bilirubin, Total 0.7 mg/dL (0.2-1.0); CO2 27.8 mmol/L (21.0-32.0); CREATININE 0.7 mg/dL (0.55-1.02); Calcium 7.7 mg/dL (8.5-10.1); Chloride 104 mmol/L (98-107); Estimated GFR 85.76 (mL/min/1.73m2); Glucose 103 mg/dL (74-106); Potassium 4.1 mmol/L (3.5-5.1); Sodium 138 mmol/L (136-145); Total Protein 4.8 g/dL (6.4-8.2)
[2024-01-01] MEDS: Lactated Ringers 500 ML 1000 ML IV ×2 (07:29→09:48)
--- NOTE | 2024-01-01 08:36 | INITIAL_ITS ---
Date of service: 01/01/24 Time of Service: 08:36 Care Management Initial Assmt Initial Assessment REASON FOR HOSPITALIZATION:: hip fracture PREVIOUS FUNCTIONAL STATUS/SOCIAL/FAMILY SUPPORTS:: Elvi lives alone in her family home in [facility]. She has no family locally but she remains in close contact with her sister, Marzena, who resides in [place], [place]. 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 Elvi does not drive but she cooks her own meals and is independent with her ADLs at baseline. She uses a walker, cane and wheelchair for ambulatory assistance as needed. Elvi has home health nursing visits twice a week for wound care and dressing changes. She also has a homemaker for a few hours a week. CURRENT FUNCTIONAL STATUS:: Elvi was sitting up in bed eating her dinner when CM met with her. She was agreeable to conversation and pleasant in manner. Elvi talked a bit about her medical history and challenges she faces. She stated that she spends much of her time in a wheelchair, although she is able to walk with a walker or cane. She uses the wheelchair because she is afraid of falling. CM asked about discharge plans and Elvi stated that she realizes that she will likely need to go to rehab before returning home as she has fractured her hip. She has been to [facility] and would not be willing to return there. She has also had a 5 month stay at [facility] and would be willing to go back there or to [facility]. Referrals will be sent as requested. ADVANCE DIRECTIVES:: On file. Marzena HOFFMAN Has patient been provided with info about the portal/API?: Yes Did the patient sign up for the portal?: No CODE STATUS:: DNR/DNI INSURANCE COVERAGE / FINANCIAL ISSUES:: Medicare Medicaid PRIMARY CARE PHYSICIAN:: Iesha Leary POTENTIAL DISCHARGE NEEDS:: Follow up with PCP and plan of care PATIENT/FAMILY EDUCATION NEEDS:: review of discharge instructions, activity, limitations, follow up plan, discuss [employer] TRANSPORTATION:: via private vehicle PLAN:: Anticipate Elvi will be transferred to a SNF when medically ready for discharge. She will follow up with the facility providers and plan of care. Transportation will be via facility van or RCT. CM will follow and continue to assess for discharge needs. PFSH All Active Problems (Updated 01/01/24 @ 14:13 by Fior rGaves APRN) Hypotension (Acute) Intertrochanteric fracture of left femur (Acute) Discharge planning issues (Acute) On deep vein thrombosis (DVT) prophylaxis (Acute) Elevated CK (Acute) Closed fracture of left hip (Acute) Acute UTI (Acute) Skin ulcer (Acute) Palliative care patient (Acute) Palliative care encounter (Acute) DNR (do not resuscitate) (Acute) Chronic pain (Chronic) E. 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 fell down and could not get up Hypertension (Chronic) with labile blood pressure. Morbid obesity (Chronic) Allergic rhinitis (Chronic) Hyperlipidemia (Chronic) History of anemia (Chronic) Fibromyalgia (Chronic) DJD (degenerative joint disease) (Chronic) Chronic depression (Chronic) Insomnia (Chronic) Gastroesophageal reflux disease (Chronic) Hiatal hernia (Chronic) Irritable bowel syndrome (Chronic) History of surgery (Chronic) a. S/P open right ankle fracture/dislocation. b. Left knee arthroscopy. c. Right wrist fracture repair. d. T/A as a child. Dehydration, mild (Acute 09/22/14) Housing or economic circumstance (Chronic 09/22/14) a. No heat for 1-1/2 days H/O fall (Chronic) Anemia (Chronic) Alcohol withdrawal delirium (Acute 09/22/14) Rhabdomyolysis (Acute 09/22/14) Ataxia (Chronic) COPD (chronic obstructive pulmonary disease) (Chronic) Onychomycosis (Chronic) Depression (Chronic) Medical History Frequent falls Alcohol withdrawal NSIP (nonspecific interstitial pneumonia) Fracture of right inferior pubic ramus Fracture of right superior pubic ramus ACP (advance care planning) Alcohol use disorder Laceration of skin of right forearm Skin ulcer of lower leg DVT prophylaxis Interstitial lung disease Laceration of arm, right, complicated Fractured pelvis T12 compression fracture Acute exacerbation of chronic low back pain Fall Alcohol dependence Person living alone (09/22/14) Hiatal hernia IBS (irritable bowel syndrome) Hypertension Allergic rhinitis GERD (gastroesophageal reflux disease) DJD (degenerative joint disease) Hyperlipidemia Hypercholesterolemia Fibromyalgia Depression Anemia Alcohol abuse Insomnia Surgical History Tonsillectomy and adenoidectomy Repair fracture right wrist ORIF right ankle Colonoscopy - MAC (11/18/16) Arthroplasty of knee left Family History Mother Dementia Maternal Aunt Diabetes Social History Smoking/Tobacco Use Status: Former Tobacco Use Smoking risk assessment performed?: Yes Alcohol Intake: current Alcohol Intake frequency: 0-2 drinks per day Alcohol type: wine Counseling given: Yes Details: 1-2 bottle of wine/day Drug use: Daily Substance use type: does not use and marijuana Details: two tokes for sleep Housing: house Do you feel safe at home: Yes Do you feel safe in your relationship?: Yes Additional Social history: Lives alone in home in [facility], has a cat. States hasn't been out of house for a year. One sister in [place] SDOH(Care Management) Screening Will the Patient Participate in the Screening?: Unable to obtain
[2024-01-01] MEDS: Fluticasone NASAL SPRAY 16 GM BTL NS ×2 (08:42→20:13)
[2024-01-01] MEDS: Calcitonin-Salmon, Synthetic 3.7 ML BTL NS ×2 (08:43→20:15)
--- NOTE | 2024-01-01 08:50 | PDOC.CMIN ---
Date of service: 01/01/24 Time of Service: 08:50 [facility] All Active Problems (Updated 01/01/24 @ 06:53 by Stra Lucia MD) Intertrochanteric fracture of left femur (Acute) Discharge planning issues (Acute) On deep vein thrombosis (DVT) prophylaxis (Acute) Elevated CK (Acute) Closed fracture of left hip (Acute) Acute UTI (Acute) Skin ulcer (Acute) Palliative care patient (Acute) Palliative care encounter (Acute) DNR (do not resuscitate) (Acute) Chronic pain (Chronic) E. 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 fell down and could not get up Hypertension (Chronic) with labile blood pressure. Morbid obesity (Chronic) Allergic rhinitis (Chronic) Hyperlipidemia (Chronic) History of anemia (Chronic) Fibromyalgia (Chronic) DJD (degenerative joint disease) (Chronic) Chronic depression (Chronic) Insomnia (Chronic) Gastroesophageal reflux disease (Chronic) Hiatal hernia (Chronic) Irritable bowel syndrome (Chronic) History of surgery (Chronic) a. S/P open right ankle fracture/dislocation. b. Left knee arthroscopy. c. Right wrist fracture repair. d. T/A as a child. Dehydration, mild (Acute 09/22/14) Housing or economic circumstance (Chronic 09/22/14) a. No heat for 1-1/2 days H/O fall (Chronic) Anemia (Chronic) Alcohol withdrawal delirium (Acute 09/22/14) Rhabdomyolysis (Acute 09/22/14) Ataxia (Chronic) COPD (chronic obstructive pulmonary disease) (Chronic) Onychomycosis (Chronic) Depression (Chronic) Medical History Frequent falls Alcohol withdrawal NSIP (nonspecific interstitial pneumonia) Fracture of right inferior pubic ramus Fracture of right superior pubic ramus ACP (advance care planning) Alcohol use disorder Laceration of skin of right forearm Skin ulcer of lower leg DVT prophylaxis Interstitial lung disease Laceration of arm, right, complicated Fractured pelvis T12 compression fracture Acute exacerbation of chronic low back pain Fall Alcohol dependence Person living alone (09/22/14) Hiatal hernia IBS (irritable bowel syndrome) Hypertension Allergic rhinitis GERD (gastroesophageal reflux disease) DJD (degenerative joint disease) Hyperlipidemia Hypercholesterolemia Fibromyalgia Depression Anemia Alcohol abuse Insomnia Surgical History Tonsillectomy and adenoidectomy Repair fracture right wrist ORIF right ankle Colonoscopy - MAC (11/18/16) Arthroplasty of knee left Family History Mother Dementia Maternal Aunt Diabetes Social History Smoking/Tobacco Use Status: Former Tobacco Use Smoking risk assessment performed?: Yes Alcohol Intake: current Alcohol Intake frequency: 0-2 drinks per day Alcohol type: wine Counseling given: Yes Details: 1-2 bottle of wine/day Drug use: Daily Substance use type: does not use and marijuana Details: two tokes for sleep Housing: house Do you feel safe at home: Yes Do you feel safe in your relationship?: Yes Additional Social history: Lives alone in home in [facility], has a cat. States hasn't been out of house for a year. One sister in [place] SDOH(Care Management) Screening Will the Patient Participate in the Screening?: Unable to obtain
--- NOTE | 2024-01-01 08:52 | PGE_ITS ---
Date of Service Date of service: 01/01/24 Time of Service: 08:52 Assessment and Plan Assessment and plan (1) Acute UTI: Status: Acute Assessment and plan: Contoinue ceftriaxone culture pending (2) Elevated CK: Status: Acute Assessment and plan: At 303, not meeting treshold for rhabdomyolysis but might be dealyed Will give IVF CMP in AM CK in AM (3) Hypotension: Status: Acute Assessment and plan: Most likely d/t volume status as the patient is also getting morphine that could cause vasodilatation Afebrile w/o leukocytosis and on broad spectrum antibiotic for suspected UTI, infectious process is likely not causing hypotension IVF bolus as per MAP<65 and S&S of hypoperfusion such as low urinary output (4) Closed fracture of left hip: Status: Acute Assessment and plan: Orthopedics completed and paln in progress for OR, please read notes Pain management: home dose opioids, PRN morphine as per range to allow caution in the setting of recent hypotension NPO post midnight for OR on 12/31 (5) Alcohol withdrawal: Assessment and plan: CIWA score Tele if positive score PRN phenobarbital bolus as per protocole if the patient scores; 6 mg/kg not above 15mg/kg total 40% of bolus dose given last evening, no further dose needed Will continue to monitor Qualifiers: Complication of substance-induced condition: uncomplicated Qualified Code(s): F10.930 - Alcohol use, unspecified with withdrawal, uncomplicated (6) On deep vein thrombosis (DVT) prophylaxis: Status: Acute Assessment and plan: Continue SC heparin in HS s/p OR if no acute bleeding hold AM dose (7) Discharge planning issues: Status: Acute Assessment and plan: CM to f/u Home with PT VS short term rehab Considering palliative care consult Discussed with Dr Vicente Subjective Subjective Patient reports: still having pain; denies tolerating liquids well (NPO for OR) or tolerating a regular diet Exam Narrative Exam Narrative: Constitutional The patient appears calm, without acute distress Neuro:alert and oriented to self, person, place and situation, knew to read the board in the room for date . No focal deficits observed Resp: On O2 supplementation 0 to 1l/min, clear anterior lungs bilaterally, no basilar crackles Cardio: regular rhythm, S1, S2, no murmur, capillary refill<3 sec., bilateral radial and right proximal dorsalis pedis positive GI: Abdomen is not distended, soft w/o abd pain, bowel sounds are present Integumentary: left leg and right ankle mepilex in place on chronic wound treated by HH, dry mucous membranes Extremities: deferred, left LE is misaligned, warm to touch and painful to mobilize, mobilizes toes Psych: RASS 0, congruent mood and normal affect. Objective Last Vital Signs Temp 36.3 C L 01/01/24 07:12 Pulse 92 H 01/01/24 08:01 Resp 18 01/01/24 08:01 BP 96/54 L 01/01/24 08:01 Pulse Ox 97 01/01/24 08:01 Laboratory Results - last 24 hr 12/31/23 12/31/23 01/01/24 14:20 14:35 05:36 WBC 5.61 4.79 RBC 3.32 L 2.65 L Hgb 11.6 9.1 L D Hct 33.6 L 28.1 L MCV 101 H 106 H D MCH 34.9 H 34.3 H MCHC 34.5 32.4 D RDW 13.9 14.2 Plt Count 263 175 MPV 9.4 10.7 Immature Gran % 0.4 Neutrophils % 44.7 Lymphocytes % 32.6 Monocytes % 18.8 Eosinophils % 3.3 Basophils % 0.2 Nucleated RBC % 0.0 Absolute Neutrophils 2.14 Absolute Lymphocytes 1.56 Absolute Monocytes 0.90 H Absolute Eosinophils 0.16 Absolute Basophils 0.01 Sodium 139 138 Potassium 3.8 4.1 Chloride 102 104 Carbon Dioxide 28.9 27.8 Anion Gap 8.1 6.2 BUN 10 13 Creatinine 0.7 0.7 Est GFR (CKD-EPI 2020) 85.76 85.76 Glucose 119 H 103 Calcium 8.1 L 7.7 L Total Bilirubin 0.9 0.7 AST 41 H 32 ALT 22 17 Alkaline Phosphatase 172 H 141 H Creatine Kinase 303 H Total Protein 5.9 L 4.8 L Albumin 2.5 L 1.9 L Urine Color Yellow Urine Clarity Cloudy Urine pH 6.0 Ur Specific [place] >= 1.030 H Urine Protein 30 H Urine Ketones 80 H Urine Blood Trace-intact H Urine Nitrite Negative Urine Bilirubin Moderate H Urine Urobilinogen 1.0 H Ur Leukocyte Esterase Small H Urine RBC 0-2 Urine WBC 20-50 H Ur Epithelial Cells Many Urine Crystals Negative Urine Bacteria Moderate Urine Casts Negative Urine Mucus Negative Urine Other Mod Transitional Ur Culture Indicated? No/Sq. Contamination Urine Glucose 100 H Time Spent with Patient Time Spent with Patient: >50 minutes Time was spent: preparing to see the patient(eg.review tests), obtaining and/or reviewing separately otained hiistory, ordering medications,tests, procedures, referring, communicating with other health childcare attendant, indepentently interpreting results, counseling the patient and care coordination
[2024-01-01] MEDS: MORPHine 4 MG/ML SYR IVP ×2 (09:56→20:45)
--- NOTE | 2024-01-01 11:07 | W.ANESPRE ---
General Info Date of Service Date Performed: 01/01/24 Height: 5 ft 7 in Weight: 83.3 kg Body Mass Index (BMI): 28.8 Surgical Procedure: Operation Date: 01/01/24 12:30 Proposed Procedure Side Surgeon p Hip TFNA- Short Left Star Lucia MD Pre-Op Diagnosis Post-Op Diagnosis Intertrochanteric fracture of left femur Meds Allergies and Home Medications Allergies Allergy/AdvReac Type Severity Reaction Status Date / Time fentanyl AdvReac Nausea Verified 12/31/23 13:44 Home Medication Medication Instructions Recorded cholecalciferol (vitamin D3) 10 800 unit PO DAILY 12/06/13 mcg (400 unit) tablet (Vitamin D3) ferrous sulfate 325 mg (65 mg 325 mg PO TID 12/06/13 iron) tablet glucosamine sulfate 2KCl 1,000 mg 500 mg PO BID 12/06/13 tablet ascorbic acid (vitamin C) 1,000 mg 4,000 mg PO DAILY 03/22/14 tablet duloxetine 60 mg capsule,delayed 60 mg PO DAILY 11/15/16 release (Cymbalta) medroxyprogesterone 2.5 mg tablet 2.5 mg PO DAILY 11/18/16 (Provera) potassium chloride 20 mEq 20 meq PO TID 11/25/16 tablet,extended release(part/cryst) fluticasone propionate 50 0 spray intranasal BID 09/19/20 mcg/actuation nasal spray,suspension duloxetine 30 mg capsule,delayed 30 mg PO DAILY 03/19/22 release quetiapine 50 mg tablet 50 mg PO QPM 03/19/22 trazodone 100 mg tablet 200 mg PO HS 03/19/22 albuterol sulfate 90 mcg/actuation 2 puff inhalation Q4H PRN PRN #0 03/22/22 aerosol inhaler (Ventolin HFA) grams esomeprazole magnesium 40 mg 40 mg PO DAILY@0730 #0 caps 03/22/22 capsule,delayed release (Nexium) calcitonin (salmon) 200 1 spray NS DAILY #3.7 mL 08/02/23 unit/actuation nasal spray cyanocobalamin (vitamin B-12) 500 500 mcg PO DAILY #30 tabs 08/02/23 mcg tablet (Vitamin B-12) cyclosporine 0.05 % eye drops in a 8 drp OU BID #30 ea 08/02/23 dropperette gabapentin 100 mg capsule 100 mg PO TID #90 caps 08/02/23 hydrocodone 5 mg-acetaminophen 325 1 tab PO Q6H PRN #20 tabs 08/02/23 mg tablet sucralfate 1 gram tablet 1 g PO AC & HS #120 tabs 08/02/23 biotin 1 mg capsule 1 mg PO DAILY 10/18/23 ginkgo biloba 40 mg tablet 40 mg PO DAILY 10/18/23 lutein 6 mg capsule 6 mg PO DAILY 10/18/23 magnesium 250 mg tablet 500 mg PO DAILY 10/18/23 vit B complex 100 combo no.2 100 tab PO 10/18/23 mg tablet,extended release (Balanced B-100 Complex) vitamin A 2,400 mcg capsule 2,400 mcg PO DAILY 10/18/23 vitamin E (dl, acetate) 45 mg (100 45 mg PO DAILY 10/18/23 unit) capsule zinc acetate 25 mg (zinc) capsule 25 mg PO DAILY 10/18/23 Current Visit Medications: Current Medications Generic Name Dose Route Start Last Admin Trade Name [facility] PRN Reason Stop Dose Admin Acetaminophen 0 mg 12/31/23 20:16 12/31/23 21:57 Acetaminophen 325 Mg Tab PO 650 mg Q4H PRN PRN Administration Hydrocodone Bitart/Acetaminophen 1 tab 12/31/23 20:16 12/31/23 21:57 Hydrocodone 5/Acetaminophen 325 Tab PO 1 tab Q6H PRN PRN Administration Al Hydrox/Mg Hydrox/Simethicone 15 ml 12/31/23 20:16 Mylanta Double Strength Suspension 30 Ml Cup PO Q2H PRN PRN Albuterol Sulfate 2 puff 12/31/23 20:16 Albuterol Hfa 8 Gm 60 Puff Inh IH Q4H PRN PRN Calcitonin [place] 0.05 ml 01/01/24 08:30 01/01/24 08:43 Calcitonin-[place], Synthetic 3.7 Ml Btl NS 1 spray DAILY MARI Administration Cholecalciferol 800 unit 01/01/24 08:30 01/01/24 08:02 Cholecalciferol (Vitamin D3) 400 Unit Tab PO Not Given DAILY MRAI Cyanocobalamin 500 mcg 01/01/24 08:30 01/01/24 08:02 Cyanocobalamin 500 Mcg Tab PO Not Given DAILY MARI Cyclosporine 0 ml 01/01/24 08:30 01/01/24 09:47 Cyclosporine 0.4 Ml Ophth Vial OU 1 ml BID [facility] Administration Device 1 each 12/31/23 20:16 Inhaler, Assist Device DIRECTED [facility] Docusate Sodium 100 mg 12/31/23 20:16 12/31/23 21:56 Docusate Sodium 100 Mg Cap PO 100 mg TID PRN PRN Administration Duloxetine HCl 60 mg 01/01/24 08:30 01/01/24 08:02 Duloxetine 30 Mg Cap PO Not Given DAILY [facility] Duloxetine HCl 30 mg 01/01/24 08:30 01/01/24 08:03 Duloxetine 30 Mg Cap PO Not Given DAILY [facility] Ferrous Sulfate 325 mg 12/31/23 20:16 01/01/24 08:03 Ferrous Sulfate 325 Mg Tab PO Not Given TID [facility] Fluticasone Propionate 0 gm 12/31/23 20:16 01/01/24 08:42 Fluticasone Nasal [place] 16 Gm Btl NS 1 spray BID [facility] Administration Gabapentin 100 mg 12/31/23 20:16 01/01/24 08:03 Gabapentin 100 Mg Cap PO Not Given TID [facility] Heparin Sodium (Porcine) 5,000 units 12/31/23 22:00 01/01/24 05:58 Heparin 5,000 Units/Ml Vial SC 01/01/24 21:59 Not Given Q8H [facility] Ceftriaxone Sodium/Dextrose 1 gm in 50 mls @ 100 mls/hr 01/01/24 16:00 Rocephin IVPB Q24H [facility] Ringer's Solution 1,000 mls @ 125 mls/hr 01/01/24 02:15 01/01/24 06:33 IV 125 mls/hr INFUSION [facility] Administration Ketorolac Tromethamine 15 mg 12/31/23 20:16 01/01/24 07:25 Ketorolac 15 Mg/Ml Vial IVP 01/05/24 20:15 15 mg Q6H PRN PRN Administration Magnesium Hydroxide 30 ml 12/31/23 20:16 Milk Of Magnesia 30 Ml Cup PO DAILY PRN PRN Morphine Sulfate 2 - 4 mg 01/01/24 09:37 01/01/24 09:56 Morphine 4 Mg/Ml Syr IVP 2 mg Q2H PRN PRN Administration Non-Formulary Medication 1 mg 01/01/24 08:30 01/01/24 08:02 Biotin PO Not Given DAILY [facility] Non-Formulary Medication 40 mg 01/01/24 08:30 Ginkgo Biloba PO DAILY MARI Non-Formulary Medication 500 mg 12/31/23 20:16 Glucosamine Sulfate 2kcl PO BID MARI Non-Formulary Medication 6 mg 01/01/24 08:30 Lutein PO DAILY MARI Non-Formulary Medication 2.5 mg 01/01/24 08:30 01/01/24 08:05 Medroxyprogesterone [Provera] PO Not Given DAILY MARI Pantoprazole Sodium 40 mg 12/31/23 22:00 12/31/23 21:57 Pantoprazole 40 Mg Vial IVP 40 mg Q24H MARI Administration Polyethylene Glycol 17 gm 12/31/23 20:16 Polyethylene Glycol 3350 17 Gm Packet PO DAILY PRN PRN Constipation Potassium Chloride 20 meq 12/31/23 20:16 01/01/24 08:03 Potassium Chloride 20 Meq Tabcr PO Not Given TID MARI Quetiapine Fumarate 50 mg 12/31/23 20:16 12/31/23 21:57 Quetiapine 50 Mg Tab PO 50 mg QPM MARI Administration Sucralfate 1 gm 12/31/23 20:16 01/01/24 10:32 Sucralfate 1 Gm Tab PO Not Given AC & HS MARI Trazodone HCl 200 mg 12/31/23 20:16 12/31/23 21:57 Trazodone 100 Mg Tab PO 200 mg HS MARI Administration PFSH Active Problems Active Problems: Problem Status Onset Code Intertrochanteric fracture of left femur S72.142A Discharge planning issues Z02.9 On deep vein thrombosis (DVT) prophylaxis Z79.899 Elevated CK R74.8 Closed fracture of left hip S72.002A Acute UTI N39.0 Skin ulcer L98.499 Palliative care patient Z51.5 Palliative care encounter Z51.5 DNR (do not resuscitate) Z66 Chronic pain G89.29 E. coli UTI N39.0, B96.20 Menopausal disorder N95.9 Chronic pain disorder G89.4 Compression fx, thoracic spine S22.000A Osteoarthritis of left knee M17.12 Arthritis of right ankle M19.071 Colitis determined by colorectal biopsy 11/18/16 K52.9 Fall 09/22/14 W19.XXXA Hypertension I10 Morbid obesity E66.01 Allergic rhinitis J30.9 Hyperlipidemia E78.5 History of anemia Z86.2 Fibromyalgia M79.7 DJD (degenerative joint disease) M19.90 Chronic depression F32.9 Insomnia G47.00 Gastroesophageal reflux disease K21.9 Hiatal hernia K44.9 Irritable bowel syndrome K58.9 History of surgery Z98.89 Dehydration, mild 09/22/14 E86.0 Housing or economic circumstance 09/22/14 Z59.9 H/O fall Z91.81 Anemia D64.9 Alcohol withdrawal delirium 09/22/14 F10.231 Rhabdomyolysis 09/22/14 M62.82 Ataxia R27.0 COPD (chronic obstructive pulmonary disease) J44.9 Onychomycosis B35.1 Depression F32.9 Medical History Medical History Frequent falls Alcohol withdrawal NSIP (nonspecific interstitial pneumonia) Fracture of right inferior pubic ramus Fracture of right superior pubic ramus ACP (advance care planning) Alcohol use disorder Laceration of skin of right forearm Skin ulcer of lower leg DVT prophylaxis Interstitial lung disease Laceration of arm, right, complicated Fractured pelvis T12 compression fracture Acute exacerbation of chronic low back pain Fall Alcohol dependence Person living alone (09/22/14) Hiatal hernia IBS (irritable bowel syndrome) Hypertension Allergic rhinitis GERD (gastroesophageal reflux disease) DJD (degenerative joint disease) Hyperlipidemia Hypercholesterolemia Fibromyalgia Depression Anemia Alcohol abuse Insomnia Surgical History Surgical History Tonsillectomy and adenoidectomy Repair fracture right wrist ORIF right ankle Colonoscopy - MAC (11/18/16) Arthroplasty of knee left Tobacco Smoking/Tobacco Use Status: Former Tobacco Use Alcohol Alcohol Intake: current Alcohol intake frequency: 0-2 drinks per day Alcohol type: wine Details: 1-2 bottle of wine/day Substance Use Substance use: Daily Substance use type: does not use and marijuana Details: two tokes for sleep Vital Signs and Lab Results Vital Signs Most Recent Vital Signs in EMR: Most Recent Vital Signs Temp Pulse Resp BP Pulse Ox 36.3 C L 92 H 18 96/54 L 97 01/01/24 07:12 01/01/24 08:01 01/01/24 08:01 01/01/24 08:01 01/01/24 08:01 Lab Results 01/01/24 05:36 01/01/24 05:36 Blood Type / Crossmatch: No Data to Display Complete Blood Count: White Blood Count 4.79 10^3/uL (4.4-10.8) 01/01/24 05:36 Red Blood Count 2.65 10^6/uL (3.93-5.22) L 01/01/24 05:36 Hemoglobin 9.1 g/dL (11.2-15.7) L 01/01/24 05:36 Hematocrit 28.1 % (36.0-46.0) L 01/01/24 05:36 Platelet Count 175 10^3/uL (130-400) 01/01/24 05:36 Complete Metabolic Panel: Sodium 138 mmol/L (136-145) 01/01/24 05:36 Potassium 4.1 mmol/L (3.5-5.1) 01/01/24 05:36 Chloride 104 mmol/L (98-107) 01/01/24 05:36 Carbon Dioxide 27.8 mmol/L (21.0-32.0) 01/01/24 05:36 BUN 13 mg/dL (7-18) 01/01/24 05:36 Creatinine 0.7 mg/dL (0.55-1.02) 01/01/24 05:36 Est GFR (CKD-EPI 2020) 85.76 (mL/min/1.73m2) 01/01/24 05:36 Calcium 7.7 mg/dL (8.5-10.1) L 01/01/24 05:36 Albumin 1.9 g/dL (3.4-5.0) L 01/01/24 05:36 Glucose 103 mg/dL (74-106) 01/01/24 05:36 Liver Function Panel: Alanine Aminotransferase (ALT/SGPT) 17 U/L (14-59) 01/01/24 05:36 Aspartate Amino Transf (AST/SGOT) 32 U/L (15-37) 01/01/24 05:36 Coagulation Panel: No Data to Display Cardiac Panel: Creatine Kinase 303 U/L (26-192) H 12/31/23 Arterial Blood Gas: No Data to Display Venous Blood Gas: No Data to Display Pancreas Panel: No Data to Display Thyroid Panel: No Data to Display Infectious Disease: No Data to Display Blood Cultures: No Data to Display Toxicology Panel: No Data to Display Anesthesia Assessment and Plan Anesthesia History Personal History: No History of Anesthesia Complications Family History: No Family History of Anesthesia Complications Exercise Tolerance Exercise Tolerance: Metabolic Equivalents>4 Pertinent Negatives Pertinent Negatives: No Symptoms of GERD and No Major Cardiovascular Symptoms or Complaints Cardiac & Pulmonary Exam Cardiac Exam: Normal S1/S2 Heart Sounds Pulmonary Exam: Clear Bilateral Breath Sounds Implantable Cardiac Device Does patient have a Pacemaker or an ICD?: No Airway Exam Known Difficult Airway: No Mallampati Class: 2 Mouth Opening: Normal (> 3cm) Thyromental Distance: Greater than 3 cm Neck Range of Motion: Full ROM Neck Circumference: Normal Teeth Condition: Removable Dentures/Plates Upper and Removable Dentures/Plates Lower ASA Classification ASA Score: ASA 3 Emergency Case?: No NPO Status NPO Status: NPO Clears >2 hours, Solids >8 hours Anesthesia Plan Resuscitation Status: DNR Modified During Perioperative Period (Patient is okay with medications, okay with intubation) Resuscitation Modifications: CPR Refused and Defibrillation Refused Anesthesia Technique: General Anesthesia Airway Planned: Natural Airway Monitors Used: Standard Monitors
[2024-01-01] MEDS: Lactated Ringers 1,000 ML 30 ML IV (12:06)
[2024-01-01] MEDS: ceFAZolin 2 GM/50 ML BAG 50 GM (12:17)
[2024-01-01] MEDS: Tranexamic Acid 1,000 MG/10 ML VIAL 1000 MG (12:23)
--- NOTE | 2024-01-01 13:47 | DI.RAD_ITS ---
Exam(s) XR HIP LT IN OR EXAM: XR HIP LT IN OR CLINICAL HISTORY: Intertrochanteric fracture of left femur TECHNIQUE: 2D and realtime digital imaging was performed. CONTRAST MATERIAL: Refer to procedure report. COMPARISON: CR,XR XR HIP LT COMPLETE AP PELVIS from 12/31/2023 FINDINGS: Fluoroscopy was provided for Dr. Lucia during the performance of a reduction and internal fixatio n of the intertrochanteric fracture of the left femur. Please refer to the procedure report for comp lete details. Ka,r=23.0 mGy IMPRESSION: RADIATION DOSE DELIVERED: 0.0 0.0 0
--- NOTE | 2024-01-01 14:31 | W.ANESPOSTOP ---
Postoperative Evaluation Date, Time and Location Date Performed: 01/01/24 Time Performed: 14:31 Patient Location: PACU Vital Signs Most Recent Imported Vital Signs: Most Recent Vital Signs Temp Pulse Resp BP Pulse Ox 36.1 C L 108 H 23 120/94 H 99 01/01/24 13:54 01/01/24 14:23 01/01/24 14:23 01/01/24 14:23 01/01/24 14:23 Pain Score Most Recent Pain Score: Most Recent Pain Score Pain Level [left hip] 5 12/31/23 22:55 Pain Level 0 01/01/24 14:23 Assessment Mental Status: Awake but Confused Airway and Respiratory Function: Patent airway with normal (patient baseline) respiratory exam Cardiovascular Function: Hemodynamically Stable Hydration Status: Adequately Hydrated Nausea & Vomiting: No Nausea or Vomiting Pain: Pain is tolerable per patient Peripheral Nerve Block: Patient did not receive a nerve block
[2024-01-01 15:15] LABS: Lab Add On Test DONE
--- NOTE | 2024-01-01 15:15 | ROE_ITS ---
Date of service: 01/01/24 Time of Service: 12:15 Operative Note Operative Note DATE OF PROCEDURE: 01/01/24 PRE-OP DIAGNOSIS: Left Intertrochanteric Femur Fracture POST-OP DIAGNOSIS: same PROCEDURE: Intramedullary Fixation of Left Intertrochanteric Proximal Femur Fracture SURGEON: Star Lucia ANESTHESIA TYPE: General LMA/ETT Refer to Anesthesia Record ESTIMATED BLOOD LOSS: 500 PATHOLOGY: none sent COMPLICATIONS: None Patient was transported to: PACU Patient's condition: stable Implants: Depuy-Synthes TFNA 12mm x 170mm Indications: Elvi is a 83 year old female who presented to the Emergency Department after a fall. X-rays confirmed the diagnosis of a left intertrochanteric fracture of the proximal femur. I reviewed the possible treatment options and given the fracture of the femur, I recommended operative fixation. I discussed the technical details of the surgery. I reviewed the risks such as bleeding, infection, pain, stiffness, malunion, nonunion, hardware prominence, hardware faiilure, malrotation, avascular necrosis, blood clot. Despite these risks, she agreed to proceed. Findings: There was a fracture of the proximal femur which was difficult to reduce. There is significant comminution of the proximal femur and the greater trochanter had multiple fracture lines present on investigation during surgery. Procedure Description: Elvi was taken back to the operating room. A general anesthetic was administered. The feet were wrapped with cast padding and Coban and then placed into the boot liners and then into the boots. Care was taken to protect the skin and make sure the heels were fully down and the boots were stable. The patient was then positioned onto the HANA table. Both legs were held in a neutral position. SCDs were applied. The patient was then slid down onto a perineal post. The arm of the operative side was then placed across the chest and secured. The nonoperative leg was scissored. A gentle reduction was then performed with traction and internal rotation and gentle external manipulation. Prophylactic antibiotics in the form of Cefazolin were administered. 1g of Tranxemic Acid was given intravenously within 30 minutes of incision. The left leg was then prepped with Chloraprep and draped in a standard fashion with shower-curtain type drape with Iodine impregnated skin protection. A timeout to confirm correct identity, side and site, procedure, allergies, anesthesia, and medical concerns was performed. Using fluoroscopy, the starting point was marked over the lateral hip, proximal to the tip of the greater trochanter. A 3cm incision was made through skin and the fascia of the gluteus musculature until the tip of the trochanter was palpable. The starting wire was placed onto the tip, just slightly on the media aspect, and centered in the AP plane. However, I was unable to keep the starting pin in any decent position. There is notable comminution of the greater trochanter on palpation. The guidewire continue to fall into multiple fracture planes extending to the primary fracture plane. Eventually after multiple attempts of trying to maintain this position is able to get the pin through the tip of the greater trochanter and into the proximal femur distal to the fracture line. This was done with a mallet. A lateral x-ray confirmed appropriate position and the guidewire was advanced to the level of the lesser trochanter. With a tissue protector, the proximal femur was opened with the opening reamer. During this process I pushed as medial as possible but the opening reamer connected with the other fracture lines with notable comminution of the lateral aspect of the greater trochanter. The short TFNA was chosen for this case and a Synthes TFNA [id number] nail was selected and opened on the back table. The nail was assembled to the aiming arm on the back table and confirmed to be aligned with the triple sleeve for blade insertion. Using manual force the nail was advanced into the femur with minimal difficulty. Unfortunately, the nail assume this more lateral position. I tried to pass multiple attempts but no matter how I held the nail or the leg the fracture comminution laterally and the greater trochanter allowed the nail to fall laterally. The triple sleeve was inserted through the targeting arm and the skin, soft tissue, and IT band was then incised. The triple sleeve was advanced down to the lateral femur. A guidewire was advanced into the femoral head where it was noted to be centered. A lateral x-ray was used to confirm centered positioning on the lateral. Happy with the length of the guidewire, this was measured. A 105mm helical blade was opened. The lateral cortex was opened. The helical blade was malletted into position and confirmed to be appropriately located on fluoroscopy. The set screw was advanced to a half turn shy of fully tightened, allowing for the helical blade to slide. The fracture was compressed before removing the targeting device. The setscrews was advanced until it was fully tightened. The targeting device was removed. AP and lateral x-rays of the hip confirmed appropriate positioning within the femur and with good alignment of the fracture. Using the targeting arm, the skin was incised for placement of the distal locking screw. The trochar was inserted through the skin and IT band down onto the lateral cortex of the femur. The 4.2mm drill was advanced across the femur and through the nail. This was measured and an appropriately sized 5.0mm screw was placed. The targeting arm was removed. Final x-rays were obta ined. The wounds were thoroughly irrigated. A cocktail consisting of 123mg of Ropivacaine, 0.25mg of Epinephrine, 0.04mg of Clonidine, and 15mg of Ketorolac, diluted to 50cc was injected throughout the wounds both deep and superficially. The deep fascia of the proximal two wounds was reapproximated with a 0 Vicryl. The deep tisses were closed with a 2-0 Vicryl and the skin was closed with stap les. The wounds were dressed with a Mepilex silver dressing. At the end of the case, all counts were correct. Elvi tolerated the procedure well without known complication and was taken to the PACU for recovery. Physical therapy will start post-operatively, weigh-bearing as tolerated with assistive devices. Anticoagulation will start within 12-24 hours. 3 doses of post-operative antibiotics for prophylaxis will be administered.
[2024-01-01 16:14] LABS: Creatine Kinase 283 U/L (26-192)
[2024-01-01] MEDS: cefTRIAXone 1 GM/50 ML BAG IVPB (16:42)
[2024-01-01] MEDS: Gabapentin 100 MG CAP PO ×2 (16:46→20:09)
[2024-01-01] MEDS: Potassium Chloride 20 MEQ TABCR PO ×2 (16:46→20:09)
[2024-01-01] MEDS: Ferrous Sulfate 325 MG TAB PO ×2 (16:46→20:09)
[2024-01-01] MEDS: Heparin 5,000 UNITS/ML VIAL 5000 UNITS SC (16:47)
[2024-01-01] MEDS: Sucralfate 1 GM TAB PO ×2 (17:14→22:21)
[2024-01-01 17:19] LABS: HCT 29.4 % (36.0-46.0); HGB 9.7 g/dL (11.2-15.7)
[2024-01-01] MEDS: HYDROcodone 5/Acetaminophen 325 TAB PO (18:11)
[2024-01-01] MEDS: Lactated Ringers 250 ML 500 ML IV (19:29)
[2024-01-01] MEDS: traZODone 100 MG TAB 200 MG PO (20:09)
[2024-01-01] MEDS: QUEtiapine 50 MG TAB PO (20:09)
[2024-01-01] MEDS: Lactated Ringers 750 ML IV (21:00)
[2024-01-01] MEDS: Pantoprazole 40 MG VIAL IVP (22:22)
[2024-01-01] MEDS: Norepinephrine in D5W 8 MG/250 ML BAG 5 MG IV (23:35)
[2024-01-02] VITALS (146 sets, daily range): BP systolic 72–164; BP diastolic 38–118; PULSE 72–120; RESP 5–40; TEMP 36.3–37.4; O2SAT 88–100
--- NOTE | 2024-01-02 | DI.US_ITS ---
APPROVED REPORT EXAM: Comprehensive 2D, Doppler, and color-flow Echocardiogram Patient Location: In-Patient Room/Bed: [id number] Battery Plate Assembler: Sharda Guzman RDCS (AE) Indications: Hypotensive, Evaluate LV/RV function Other Information Study Quality: Fair. Technically limited study due to body habitus, inability to position patient exa m done supine bedside ICU. Conclusion Normal left ventricular wall thickness chamber size and systolic function. EF biplane is 59% Right ventricle appears grossly normal in size Both atria are mildly enlarged Aortic valve is sclerotic without stenosis or regurgitation Mild mitral annular calcification Wall motion Left Ventricle The left ventricle is normal size. The overall left ventricular systolic function appears normal. The re is normal left ventricular wall thickness. Regional wall motion is not well visualized but grossly normal. LVEF is 59%. Right Ventricle Right ventricle is grossly normal in size. Atria Left atrium is mildly dilated. Right atrium is mildly dilated. Aortic Valve The Aortic valve is sclerotic. Aortic valve is trileaflet. There is no aortic valvular stenosis. No a ortic regurgitation is present. Mitral Valve Mild mitral annular calcification. No evidence of mitral valve stenosis. Trace mitral regurgitation. Tricuspid Valve The tricuspid valve is normal in structure. There is no tricuspid valve stenosis. Trace tricuspid reg urgitation. Pulmonic Valve The pulmonary valve is normal in structure. There is no pulmonic valvular stenosis. Trace pulmonic re gurgitation. Great Vessels The aortic root is normal in size. The ascending aorta is normal The IVC was not visualized. Technica lly limited imaging. Pericardium Technically limited imaging. 2D Dimensions IVSD d PLAX 0.80 cm F: 0.6-1.0 Ao Root d 2.87 cm F: 2.7 - 3.3 LVPW d PLAX 0.85 cm F: 0.6 - 1.0 Ao Asc Diam d 3.25 cm F: 2.3 - 3.1 LVID d PLAX 4.69 cm F: 3.8 - 5.2 LVDs 3.21 cm F: 2.2 - 3.5 LV EF Teichholz 59.5 % FS 31.55 % LV EDV (Teich) 101.8 mL LV ESV (Teich) 41.3 mL LA Volume LA Length A4C 5.2 cm LA Length A2C LA Area A4C s 15.04 cm2 LA Area A2C s LA Vol A4C A-L 36.78 mL LA Vol A2C A-L LA Vol Biplane A-L LA Vol A4C MOD 34.2 mL LA Vol A2C MOD LA Vol BP MOD LV Diastology MV E' medial 0.065 (>0.07 m/s) MV E Vmax 0.78 (0.4-1.3 m/s) MV E/E' MED 12.10 (<14) MV A Vmax 1.05 (0.4-1.3 m/s) MV E' lateral 0.091 (>0.1 m/s) E/A Ratio 0.7 MV E/E' LAT 8.55 (<14) MV E' Average 0.078 m/s MV E/E'(average) 10.02 Aortic Valve AoV Vmax 1.83 m/s LVOT Vmax 1.35 m/s AoV Peak Grad 13.4 mmHg LVOT Peak Grad 7.3 mmHg AoV Area (Vmax) 2.01 cm2 LVOT VTI 0.290 m AoV VTI 0.352 m LVOT Mean Grad 4.7 mmHg AoV Mean [place]. 1.30 m/s LVOT SV 79.10 mL AoV Mean Grad 7.7 mmHg LVOT Diam s 1.85 cm AoV Area (VTI) 2.25 cm2 Velocity Ratio 0.74 Mitral Valve MV DT 271 (160-240 msec) MV Vmax TIPS 1.11 m/s MV Mean Grad 2.5 (<2mmHg) MV VTI 0.258 m Pulmonary Valve PV Vmax 1.12 (0.5-1.5 m/s) RVOT Vmax 1.11 m/s PV Peak Grad 5.0 mmHg RVOT Peak Gr. 5.0 mmHg PV Mean [place] 0.83 m/s RVOT VTI 0.188 m PV Mean Grad 3.1 mmHg RVOT Mean Gr. 2.8 mmHg Tricuspid Valve TV S' 0.19 m/s
--- NOTE | 2024-01-02 | DI.RAD_ITS ---
Exam(s) XR PORTABLE CHEST AP EXAM: XR PORTABLE CHEST AP CLINICAL HISTORY: question pneumonia/fluid. TECHNIQUE: 2D digital imaging was performed. COMPARISON: CR,XR XR PORTABLE CHEST AP from 07/30/2023 FINDINGS: Single AP portable view. Distal tip of the right jugular central line is at the SVC-RA junction. There appears to be some infiltrate in left lower lobe retrocardiac region. Mild increased markings in the opposite-right lung base. No pleural effusions. No pneumothorax. No pulmonary edema. IMPRESSION: Mild infiltrate left lower lobe. DATA REPOSITORY: RADIATION DOSE DELIVERED:
[2024-01-02 00:04] LABS: BE (Venous) 1 mmol/L (-2-3); HCO3 (Venous) 27 mmol/L (23-28); O2 Sat (Venous) 92 %; TCO2 (Venous) 26 mmol/L (24-29); pCO2 (Venous) 49 mmHg (41-51); pH (Venous) 7.35 (7.31-7.41); pO2 (Venous) 65 mmHg
[2024-01-02 00:05] LABS: Abs Immature Grans 0.02 10^3/uL (0.0-0.06); Absolute Lymphocyte Count 0.57 10^3/uL (1.2-3.4); Absolute Monocyte Count 0.75 10^3/uL (0.1-0.8); Absolute Neutrophil Count 3.41 10^3/uL (1.2-6.7); HCT 22.9 % (36.0-46.0); HGB 7.4 g/dL (11.2-15.7); Immature Grans % 0.4 %; MCH 34.7 pg (27.0-33.0); MCHC 32.3 % (32.0-36.0); MCV 108 fL (80-95); MPV 9.4 fL (8.0-11.0); Monocytes % 15.8 %; Neutrophils % 71.8 %; Platelet Count 143 10^3/uL (130-400); RBC 2.13 10^6/uL (3.93-5.22); RDW 13.7 % (11.7-14.6); WBC 4.75 10^3/uL (4.4-10.8)
[2024-01-02 00:07] LABS: Lactate 1.1 mmol/L (0.6-1.4)
[2024-01-02 00:16] LABS: Diff Comment RBC Morph Reviewed; Macrocytosis 1+
--- NOTE | 2024-01-02 00:20 | CE_ITS ---
Date of service: 01/02/24 Time of Service: 00:20 Event Note: This is an 83-year-old female patient who is postop closed left intertrochanteric fracture repair with ICU nurse calling for evaluation of decreased urine output and low blood pressures postoperatively as the evening progressed. See H&P and operative notes along with lab and imaging which was reviewed. I evaluated the patient clinically she appeared to be more acutely ill than she had earlier in the evening according to ICU nursing staff. I sta rted resuscitation with 30 cc/kg lactated Ringer's with the last liter being run over 8 hours after having a total bolus of 1500 cc. Her blood pressure partially responded with better urine output though still adequate. Her MAP then dropped below 60 consistently requiring initiation of norepinephrine infusion with titration to MAP above 65. She had 2 peripheral lines which both infiltrated and general surgery was called for central line placement for treatment of this patient with IV antibiotics, cefepime and vancomycin as well as IV norepinephrine and lactated Ringer's infusion at 125 cc an hour for 8 hours to maintain MAP above 65. The ED provider did place a right IJ central line with surgery accompanying. She was slightly edematous over her arms and legs but lungs were clear with portable chest x-ray ordered and septic evaluation ordered prior to initiation of antibiotics. The patient appeared acutely ill with slight diaphoresis and change in skin color being moderately pale and ashen. She had no overt cyanosis. Her left hip incision is clean and the urine was clear and apurva with her UA positive with urine culture pending. I did spend 30 minutes at patient bedside and coordinating the above care. She remains a DNR/DNI. Time Spent with Patient Time spent in critical care(minutes): 30 Time Spent Included: Coordination of care, Chart review, Documenting critically ill care, Time at immediate bedside and Discussing critically ill care with other medical staff (ICU nurses and general surgery)
[2024-01-02 00:22] LABS: ALT 16 U/L (14-59); AST 33 U/L (15-37); Albumin 1.6 g/dL (3.4-5.0); Alkaline Phosphatase 121 U/L (46-116); BUN 12 mg/dL (7-18); Bilirubin, Total 0.4 mg/dL (0.2-1.0); CREATININE 0.6 mg/dL (0.55-1.02); Calcium 7.3 mg/dL (8.5-10.1); Chloride 104 mmol/L (98-107); Estimated GFR 89.01 (mL/min/1.73m2); Glucose 141 mg/dL (74-106); Potassium 5.2 mmol/L (3.5-5.1); Sodium 136 mmol/L (136-145); Total Protein 4.3 g/dL (6.4-8.2)
[2024-01-02 00:35] LABS: Procalcitonin < 0.1 ng/mL
--- NOTE | 2024-01-02 01:06 | W.ED.PROC ---
Date of service: 01/02/24 Time of Service: 01:06 Procedures Central Line Placement Right IJ: Time Out Performed: Yes Patient Placed on Monitor/Pulse Ox: Yes MD Prep: mask, gown and gloves Central Line Prep: Chlorhexidine scrub Local Anesthetic: Lidocaine 1% Amount of anesthesia used (mL): 4 Ultrasound Used for Placement: Yes Central Line Lumen Inserted: triple Post Procedure: good blood return, all ports aspirated, flushed, capped and sutured in place with 2-0 silk Post Procedure X-Ray: tip of catheter in good position Patient Tolerated Procedure: well and no complications Complications: none Medical Decision Making Was requested by hospitalist Dr. Hagen to place central line for hypotensive patient. Central line placed without complication in the right IJ. Quality:SDOH Health Related Social Needs: No Data to Display
[2024-01-02] MEDS: Terbutaline 1 MG/ML VIAL 0.5 MG SC (01:15)
[2024-01-02] MEDS: Lactated Ringers 1,000 ML 125 ML IV (01:42)
[2024-01-02] MEDS: Norepinephrine in D5W 8 MG/250 ML BAG 9.375 MG IV (01:52)
[2024-01-02 02:24] LABS: Lactate 0.6 mmol/L (0.6-1.4)
[2024-01-02] MEDS: VANCOMYCIN 2,000 MG in Normal Saline 500 ML 250 MG IVPB (02:31)
[2024-01-02 02:38] LABS: INR 1.1 (0.9-1.1); PTT Activated 38.1 sec (23.6-32.8); Prothrombin Time 10.8 sec (9.1-11.1)
--- NOTE | 2024-01-02 03:05 | DI.VRAD_ITS ---
PROCEDURE INFORMATION: Exam: XR Chest Exam date and time: 01/02/2024 1:03 AM Age: 83 years old Clinical indication: Device placement; Picc; Other: Question pneumonia/fluid; Additional info: Question pneumonia/fluid, post line TECHNIQUE: Imaging protocol: Radiologic exam of the chest. Views: 1 view. COMPARISON: CR XR PORTABLE CHEST AP 07/30/2023 2:25 PM FINDINGS: Tubes, catheters and devices: Right central venous catheter terminates in the expected location of the superior vena cava. Lungs: Low lung volumes. No significant change in bilateral pulmonary opacities. Pleural spaces: Suspect left pleural effusion. Heart/Mediastinum: Cardiac silhouette magnified by AP technique. Bones/joints: Grossly unremarkable. IMPRESSION: 1. Line placement as above. 2. No other significant interval change. Dictated and Authenticated by: Jayshree Son MD. Ordering:MAGALIE Park MD
[2024-01-02 03:41] LABS: MRSA PCR Negative (Negative)
[2024-01-02] MEDS: CEFEPIME 1 GM in Normal Saline 50 ML IVPB ×3 (03:48→20:59)
[2024-01-02] MEDS: Normal Saline Flush 10 ML SYR (03:56)
[2024-01-02 05:29] LABS: Lactate 0.8 mmol/L (0.6-1.4)
[2024-01-02 05:32] LABS: Abs Immature Grans 0.03 10^3/uL (0.0-0.06); Absolute Basophil Count 0.01 10^3/uL (0.0-0.2); Absolute Eosinophil Count 0.02 10^3/uL (0.0-0.7); Absolute Lymphocyte Count 1.09 10^3/uL (1.2-3.4); Absolute Monocyte Count 1.01 10^3/uL (0.1-0.8); Absolute Neutrophil Count 3.63 10^3/uL (1.2-6.7); Basophils % 0.2 %; Eosinophils % 0.3 %; HCT 23.7 % (36.0-46.0); HGB 7.7 g/dL (11.2-15.7); Immature Grans % 0.5 %; Lymphocytes % 18.8 %; MCH 34.7 pg (27.0-33.0); MCHC 32.5 % (32.0-36.0); MCV 107 fL (80-95); MPV 9.6 fL (8.0-11.0); Monocytes % 17.4 %; Neutrophils % 62.8 %; Platelet Count 176 10^3/uL (130-400); RBC 2.22 10^6/uL (3.93-5.22); RDW 13.7 % (11.7-14.6); RDW-SD 53.1 fL; WBC 5.79 10^3/uL (4.4-10.8)
[2024-01-02 05:48] LABS: Diff Comment RBC Morph Reviewed; Macrocytosis 2+
[2024-01-02 05:51] LABS: Anion Gap 5.9 mmol/L (3-11); BUN 11 mg/dL (7-18); CO2 25.1 mmol/L (21.0-32.0); CREATININE 0.6 mg/dL (0.55-1.02); Calcium 7.5 mg/dL (8.5-10.1); Chloride 107 mmol/L (98-107); Estimated GFR 89.01 (mL/min/1.73m2); Glucose 135 mg/dL (74-106); Magnesium 1.8 mg/dL (1.8-2.4); Potassium 4.5 mmol/L (3.5-5.1); Sodium 138 mmol/L (136-145)
[2024-01-02] MEDS: MORPHine 4 MG/ML SYR IVP (05:54)
[2024-01-02] MEDS: Ketorolac 15 MG/ML VIAL IVP (06:22)
[2024-01-02] MEDS: Gabapentin 100 MG CAP PO ×3 (09:11→21:02)
[2024-01-02] MEDS: Potassium Chloride 20 MEQ TABCR PO ×3 (09:11→21:01)
[2024-01-02] MEDS: Cholecalciferol (Vitamin D3) 400 UNIT TAB 800 UNIT PO (09:11)
[2024-01-02] MEDS: Sucralfate 1 GM TAB PO ×4 (09:11→21:01)
[2024-01-02] MEDS: Cyanocobalamin 500 MCG TAB PO (09:11)
[2024-01-02] MEDS: DULoxetine 30 MG CAP 60 MG PO (09:12)
[2024-01-02] MEDS: Ferrous Sulfate 325 MG TAB PO ×3 (09:12→21:02)
[2024-01-02] MEDS: Normal Saline Flush 10 ML SYR IVP ×4 (09:13→21:00)
[2024-01-02] MEDS: Fluticasone NASAL SPRAY 16 GM BTL NS ×2 (09:14→20:59)
[2024-01-02] MEDS: Calcitonin-Salmon, Synthetic 3.7 ML BTL NS (09:25)
--- NOTE | 2024-01-02 09:30 | RT.EKG_ITS ---
APPROVED REPORT Exam: Resting ECG Reason for Exam: hypotension Patient Location: I HR:96 bpm ECG Measurements Heart Rate 96 AXIS TX 134 P 5 QRSd 98 QRS -9 QT 359 T 6 QTc 454 Conclusion Sinus rhythm...normal P axis, V-rate 50- 99 Low voltage, precordial leads...precordial leads <1.0mV Borderline T abnormalities, anterior leads...T flat or neg, V2-V4
--- NOTE | 2024-01-02 09:31 | W.PULMCC ---
General Date of Service Date of service: 01/02/24 Time of Service: 08:30 Reason for Admission to ICU: Hypotension Assessment and Plan Assessment and plan (1) Hypotension: Status: Acute (2) Intertrochanteric fracture of left femur: Status: Acute Qualifiers: Encounter type: initial encounter Fracture type: closed Fracture alignment: displaced Qualified Code(s): S72.142A - Displaced intertrochanteric fracture of left femur, initial encounter for closed fracture (3) Acute UTI: Status: Acute (4) Respiratory failure with hypoxia: Status: Acute (5) Anemia: Status: Chronic Qualifiers: Anemia type: other cause Qualified Code(s): D63.8 - Anemia in other chronic diseases classified elsewhere (6) NSIP (nonspecific interstitial pneumonia): Assessment and plan: This is a 83 yo with history of ILD who is POD1 for an intramedullary fixation of left intertrochanteric proximal femur fracture who subsequently experienced hypotension requiring Levophed and CVC placement. She does not appear toxic to me, and was being treated for the UTI pre-operatively. Her cardiac function on POCUS seemed reasonable, however a forma echo was completed shortly after I saw her. I do worry about the 2g Hb drop and would recommend a 1 U PRBC transfusion to see if this may help with her hemodynamics. She has not had an EKG or a troponin in the setting of this acute decompensation so these have been ordered. Her MRSA swab is negative, so I have stopped the vancomycin, but would continue the cefepime for now. He CXR is not normal, however she does have baseline ILD, which I think is what we are seeing on the CXR as opposed to volume overload, as her echo this morning did not appear to show significant signs of volume overload. Recommendations Pulmonary: Hypoxic respiratory failure - IS - supplemental O2 for sats >88% ILD - no signs of flare Cardiac: Hypotension - Levophed for MAP >65mmHg - recommend 1 UPRBC given Hb drop - EKG and troponin ordered for this morning Renal: No acute concerns I&O: Intake & Output 12/30/23 12/31/23 01/01/24 01/02/24 23:59 23:59 23:59 23:59 Intake Total 1451.5385 / 1451.5385 4445.25 / 4445.25 1916.532 / 1916.532 Output Total 100 / 100 806 / 806 800 / 800 Balance 1351.5385 / 1351.5385 3639.25 / 3639.25 1116.532 / 1116.532 Weight 84.4 kg 83.3 kg 90.4 kg Daily Fluid Goal:: even GI Nutrition: Nutrition - ok for diet from my perspective Date of Last Bowel Movement: 12/28/23 Infectious Disease: UTI - continue on cefepime - MRSA swab negative, D/C vanco - pending cultures Hematologic: Anemia - as above, consider 1 U PRBC transfusion - recommend repeat CBC in pm Endocrine: No acute concerns Lines: CVC Ferguson Prophylaxis: DVT ppx per ortho Code Status: Resuscitation Status DNR/DNI Subjective Critical and life-threatening events over the past 24 hours: This is an 83 yo admitted to the ICU, who is POD 1 from an intramedullary fixation of left intertrochanteric proximal femur fracture. Overnight there was decreased UOP and hypotension which resulting in the need for central access and vasopressor use. She had further IVF resuscitation with a transient improvement. She was started on vancomycin and cefepime. She did have a 2 gram Hb drop. She has no WBC count, a negative procalcitonin. Blood cultures are pending. She did have a positive urine cultyre for enterococcus on 12/30, which is being covered currently. No troponin of EKG was ordered. Her interaction this morning was limited do to tiredness and she did not answer many questions. Exam Narrative Exam Narrative: Gen: NAD, normal respiratory effort, well-nourished HENT: PERRL Chest: No respiratory distress, bibasilar crackles Heart: regular rate and rhythym, no murmurs, rubs or gallops Abdomen: Non-distended, soft, non tender Extremities: No clubbing, edema, cyanosis, rashes Neuro: non focal Psych: cooperative, appropriate mental affect Most Recent VS/Results Last Vital Signs Temp 36.8 C 01/02/24 07:38 Pulse 100 H 01/02/24 07:38 Resp 16 01/02/24 07:38 BP 93/53 L 01/02/24 07:38 Pulse Ox 97 01/02/24 07:38 Laboratory Results - last 24 hr 01/01/24 01/01/24 01/01/24 15:14 15:40 17:05 WBC RBC Hgb 9.7 L Hct 29.4 L MCV MCH MCHC RDW Plt Count MPV Immature Gran % Neutrophils % Lymphocytes % Monocytes % Eosinophils % Basophils % Nucleated RBC % Absolute Neutrophils Absolute Lymphocytes Absolute Monocytes Absolute Eosinophils Absolute Basophils RBC Morphology Macrocytosis PT INR APTT VBG pH VBG pCO2 VBG pO2 VBG HCO3 VBG Total CO2 VBG O2 Saturation VBG Base Excess VBG Lactate Sodium Potassium Chloride Carbon Dioxide Anion Gap BUN Creatinine Est GFR (CKD-EPI 2020) Glucose Calcium Magnesium Total Bilirubin AST ALT Alkaline Phosphatase Creatine Kinase 283 H Total Protein Albumin Procalcitonin MRSA (TEM-PCR) Add-On Test Request DONE 01/01/24 01/02/24 01/02/24 23:51 01:15 02:15 WBC 4.75 RBC 2.13 L Hgb 7.4 L D Hct 22.9 L MCV 108 H MCH 34.7 H MCHC 32.3 RDW 13.7 Plt Count 143 MPV 9.4 Immature Gran % 0.4 Neutrophils % 71.8 Lymphocytes % 12.0 Monocytes % 15.8 Eosinophils % 0.0 Basophils % 0.0 Nucleated RBC % 0.0 Absolute Neutrophils 3.41 Absolute Lymphocytes 0.57 L Absolute Monocytes 0.75 Absolute Eosinophils 0.00 Absolute Basophils 0.00 RBC Morphology See Below Macrocytosis 1+ PT 10.8 INR 1.1 APTT 38.1 H VBG pH 7.35 VBG pCO2 49 VBG pO2 65 VBG HCO3 27 VBG Total CO2 26 VBG O2 Saturation 92 VBG Base Excess 1 VBG Lactate 1.1 0.6 Sodium 136 Potassium 5.2 H D Chloride 104 Carbon Dioxide 27.0 Anion Gap 5.0 BUN 12 Creatinine 0.6 Est GFR (CKD-EPI 2020) 89.01 Glucose 141 H Calcium 7.3 L Magnesium Total Bilirubin 0.4 AST 33 ALT 16 Alkaline Phosphatase 121 H Creatine Kinase Total Protein 4.3 L Albumin 1.6 L Procalcitonin < 0.1 MRSA (TEM-PCR) Negative Add-On Test Request 01/02/24 05:12 WBC 5.79 RBC 2.22 L Hgb 7.7 L Hct 23.7 L MCV 107 H MCH 34.7 H MCHC 32.5 RDW 13.7 Plt Count 176 MPV 9.6 Immature Gran % 0.5 Neutrophils % 62.8 Lymphocytes % 18.8 Monocytes % 17.4 Eosinophils % 0.3 Basophils % 0.2 Nucleated RBC % 0.0 Absolute Neutrophils 3.63 Absolute Lymphocytes 1.09 L Absolute Monocytes 1.01 H Absolute Eosinophils 0.02 Absolute Basophils 0.01 RBC Morphology See Below Macrocytosis 2+ PT INR APTT VBG pH VBG pCO2 VBG pO2 VBG HCO3 VBG Total CO2 VBG O2 Saturation VBG Base Excess VBG Lactate 0.8 Sodium 138 Potassium 4.5 Chloride 107 Carbon Dioxide 25.1 Anion Gap 5.9 BUN 11 Creatinine 0.6 Est GFR (CKD-EPI 2020) 89.01 Glucose 135 H Calcium 7.5 L Magnesium 1.8 Total Bilirubin AST ALT Alkaline Phosphatase Creatine Kinase Total Protein Albumin Procalcitonin MRSA (TEM-PCR) Add-On Test Request Review of Systems Unobtainable due to mental status Time spent with patient Time spent in Critical Care: 60 Time spent in Critical care included: Coordination of care, Chart review, Documenting critically ill care, Time at immediate bedside and Discussing critically ill care with other medical staff Multi-Disciplinary Checklist Lines/Tubes CENTRAL LINE: yes, Central Line Day#: 0 ARTERIAL LINE: no FERGUSON: yes, Ferguson Day#: 2 ENDOTRACHEAL TUBE: no ICU Maintenance GLUCOSE 140-180mg/dL: yes NUTRITION AT GOAL: no, PRESSURE ULCER: no RESTRAINTS: no ANTIBIOTICS(if yes, consider Stewardship): Yes Social Issues FAMILY UPDATED: no, Reason/Intervention: defer to hospitalist team PT/OT: yes GOALS/DISPOSITION/VACUUM EVAPORATION OPERATOR: yes CODE STATUS: DNR/DNI Prophylaxis DVT PROPHYLAXIS: no Reason/Intervention: defer to ortho GI PROPHYLAXIS: no Pocus Exam Limited Cardiac Exam DATE OF EXAM: 01/02/24 TIME OF EXAM: 08:15 PROVIDER THAT PERFORMED THE STUDY: Dorita Denise IS THIS A REPEAT EXAM DURING THIS ENCOUNTER: no REASON FOR EXAM: Hypotension VISUALIZED STRUCTURES: left ventricle and right ventricle VIEW OBTAINED: Parasternal short-axis (limited views due to positioning and body habitus) PERTINENT FINDINGS/IMPRESSION: No apparent abnormalities Exam complete Limited Thoracic Lung Exam DATE OF EXAM: 01/02/24 TIME OF EXAM: 08:15 PROVIDER THAT PERFORMED THE STUDY: Dorita Denise IS THIS A REPEAT EXAM DURING THIS ENCOUNTER: No REASON FOR EXAM: Hypoxia VISUALIZED STRUCTURES: right anterior and left anterior PERTINENT FINDINGS/IMPRESSION: B-lines/right side Exam complete
[2024-01-02] MEDS: DULoxetine 30 MG CAP PO (09:43)
--- NOTE | 2024-01-02 10:08 | PT.INNT ---
PT Notes Visit Reasons: Left Hip Fracture Patient having ECG testing. Will recheck again in a little bit.
--- NOTE | 2024-01-02 10:23 | PGE_ITS ---
Date of Service Date of service: 01/02/24 Time of Service: 10:23 Assessment and Plan Assessment and plan (1) Hypotension: Status: Acute Assessment and plan: ddx: hypovolemia from anemia, poor po intake preoperatively; sepsis (UTI vs pneumonia); Dr. Denise feels that her CXR is consistent w/ her ILD, patient was on CTRX for her UTI, unfortunately blood cultures were not obtained last night (were ordered but then cancelled by ICU). cultures now taken this morning. Patient was given iv fluid resuscitaton but given her anemia blood products seem more efficacious. I have ordered 1 units of PRBC for Hb of 7.7 gm (had been 9.7 gm yesterday and was checked last night and was 7.4 gm. Despite this she was not given PRBC last night but did get iv fluids and norepinephrine. She is improving, she has good mentation, starting to make some urine now, BP is stabilizing and N.E. down to 7 mcg/minute. I will give her 1 unit of PRBC, however she may need a dose of lasix after the unit of blood, although clinically she does not seem to be hypervolemic. Per Dr. Denise's notes, she did a POCUS exam and did not feel she was hypervolemic. Her basilar rale may actually be her ILD. Critical care time spent interviewing and examining the patient, reviewing studies, discussing case with patient's nurse and consulting physicians was 45 minutes Qualifiers: Hypotension type: hypotension due to hypovolemia Qualified Code(s): E86.1 - Hypovolemia (2) Elevated troponin I level: Status: Acute Assessment and plan: No EKG or troponin were done last night w/ her hypotension, however, they were ordered this morning by Dr. Denise and there is no acute ischemic or injury pattern on her EKG. She is in NSR w/ low precordial voltage, flattened anterior T waves but no ST elevation or depression. Troponin done this morning is elevated at 131, she has no CP. I will cycle her troponin levels until they are starting to decline. Echo was done this morning per my orders. I will review results but Dr. Denise indicated that on her POCUS she did not see anything concnerning for myocardial wall injury. (3) Acute UTI: Status: Acute Assessment and plan: patient has Enterococcus therefore vancomcyin will be resumed. I will await results of her blood cultures which were eventually drawn this morning and if no growth and the only organism is the Enterococcus then will dc her cefepime, if Enterococcus is sensitive to PCN then may be able to change to ampicilliin. (4) Anemia: Status: Chronic Assessment and plan: worsening anmia, patient has been on iron supplements at home so she can tell if her stools have been dark d/t the iron vs blood. I reviewed her iron studies from 07/30/23 and her studies are more consistent w/ anemia of chronic di sease/chronic inflammation, serum ferritin was normal and TIBC was low and serum iron was low. folate and B12 were normal. Her worsening anemia is likely d/t acute blood loss from her hip fracture and dilution, nevetheless in light of her hypotension, need for vasopressor, I think giving her 1 unit of PRBC is a good idea. Qualifiers: Anemia type: other cause Qualified Code(s): D63.8 - Anemia in other chronic diseases classified elsewhere (5) Intertrochanteric fracture of left femur: Status: Acute Assessment and plan: POD #1 left hip s/p IM fixation; begin P.T. to try to mobilize her Qualifiers: Encounter type: initial encounter Fracture type: closed Fracture alignment: displaced Qualified Code(s): S72.142A - Displaced intertrochanteric fracture of left femur, initial encounter for closed fracture (6) Respiratory failure with hypoxia: Status: Acute Assessment and plan: chronic secondary to her ILD. encourage use of IS, mobilize her, support w/ NC oxygen Qualifiers: Chronicity: chronic Qualified Code(s): J96.11 - Chronic respiratory failure with hypoxia (7) NSIP (nonspecific interstitial pneumonia): (8) Constipation: Status: Acute Assessment and plan: will give her Relistor, PEG and senna, metamucil Qualifiers: Constipation type: drug induced constipation Qualified Code(s): K59.03 - Drug induced constipation Subjective Subjective Interval history since last seen: Overnight, patient developed hypotenstion, treated w/ iv fluids and norepinephr ine added, antibiotics changed to vancomycin and cefepime (had been on CTRX for UTI), patient s/p ORIF left hip fracture, POD#1. Patient is alert, oriented this moring, denies any CP or dyspnea, although she is on 1 lpm oxygen (apparently desaturated during the night when asleep). Her main complaint is neck discomfort. Left hip pain seems to be controlled but she has not been out of bed yet. P.T. here to work w/ her. Exam Narrative Exam Narrative: Elvi is awake and alert, oriented to person/place/date No acute distress, not dyspneic w/ conversation Lungs: clear anteriorly but w/ bibasilar rales posteriorly Heart: RRR, no murmur or rub (no arrhyythmias overnight) Abdomen: soft, nontender (nursing and patient report no BM since admission) Harris w/ scant amount of clear yellow urine (she had low UO this morning but reportedly had 800 mL UO last night after bolused w/ iv fluids Extremities: left hip s/p ORIF, minimal tenderness to palpation, no significant bruising noted, no induration, no edema of feet or ankles Objective Last Vital Signs Temp 36.8 C 01/02/24 07:38 Pulse 100 H 01/02/24 07:38 Resp 16 01/02/24 07:38 BP 93/53 L 01/02/24 07:38 Pulse Ox 97 01/02/24 07:38 Laboratory Results - last 24 hr 01/01/24 01/01/24 01/01/24 15:14 15:40 17:05 WBC RBC Hgb 9.7 L Hct 29.4 L MCV MCH MCHC RDW Plt Count MPV Immature Gran % Neutrophils % Lymphocytes % Monocytes % Eosinophils % Basophils % Nucleated RBC % Absolute Neutrophils Absolute Lymphocytes Absolute Monocytes Absolute Eosinophils Absolute Basophils RBC Morphology Macrocytosis PT INR APTT VBG pH VBG pCO2 VBG pO2 VBG HCO3 VBG Total CO2 VBG O2 Saturation VBG Base Excess VBG Lactate Sodium Potassium Chloride Carbon Dioxide Anion Gap BUN Creatinine Est GFR (CKD-EPI 2020) Glucose Calcium Magnesium Total Bilirubin AST ALT Alkaline Phosphatase Creatine Kinase 283 H Total Protein Albumin Procalcitonin MRSA (TEM-PCR) Add-On Test Request DONE 01/01/24 01/02/24 01/02/24 23:51 01:15 02:15 WBC 4.75 RBC 2.13 L Hgb 7.4 L D Hct 22.9 L MCV 108 H MCH 34.7 H MCHC 32.3 RDW 13.7 Plt Count 143 MPV 9.4 Immature Gran % 0.4 Neutrophils % 71.8 Lymphocytes % 12.0 Monocytes % 15.8 Eosinophils % 0.0 Basophils % 0.0 Nucleated RBC % 0.0 Absolute Neutrophils 3.41 Absolute Lymphocytes 0.57 L Absolute Monocytes 0.75 Absolute Eosinophils 0.00 Absolute Basophils 0.00 RBC Morphology See Below Macrocytosis 1+ PT 10.8 INR 1.1 APTT 38.1 H VBG pH 7.35 VBG pCO2 49 VBG pO2 65 VBG HCO3 27 VBG Total CO2 26 VBG O2 Saturation 92 VBG Base Excess 1 VBG Lactate 1.1 0.6 Sodium 136 Potassium 5.2 H D Chloride 104 Carbon Dioxide 27.0 Anion Gap 5.0 BUN 12 Creatinine 0.6 Est GFR (CKD-EPI 2020) 89.01 Glucose 141 H Calcium 7.3 L Magnesium Total Bilirubin 0.4 AST 33 ALT 16 Alkaline Phosphatase 121 H Creatine Kinase Total Protein 4.3 L Albumin 1.6 L Procalcitonin < 0.1 MRSA (TEM-PCR) Negative Add-On Test Request 01/02/24 05:12 WBC 5.79 RBC 2.22 L Hgb 7.7 L Hct 23.7 L MCV 107 H MCH 34.7 H MCHC 32.5 RDW 13.7 Plt Count 176 MPV 9.6 Immature Gran % 0.5 Neutrophils % 62.8 Lymphocytes % 18.8 Monocytes % 17.4 Eosinophils % 0.3 Basophils % 0.2 Nucleated RBC % 0.0 Absolute Neutrophils 3.63 Absolute Lymphocytes 1.09 L Absolute Monocytes 1.01 H Absolute Eosinophils 0.02 Absolute Basophils 0.01 RBC Morphology See Below Macrocytosis 2+ PT INR APTT VBG pH VBG pCO2 VBG pO2 VBG HCO3 VBG Total CO2 VBG O2 Saturation VBG Base Excess VBG Lactate 0.8 Sodium 138 Potassium 4.5 Chloride 107 Carbon Dioxide 25.1 Anion Gap 5.9 BUN 11 Creatinine 0.6 Est GFR (CKD-EPI 2020) 89.01 Glucose 135 H Calcium 7.5 L Magnesium 1.8 Total Bilirubin AST ALT Alkaline Phosphatase Creatine Kinase Total Protein Albumin Procalcitonin MRSA (TEM-PCR) Add-On Test Request Time Spent with Patient Time Spent with Patient: 35-49 minutes Time was spent: preparing to see the patient(eg.review tests), ordering medications,tests, procedures, referring, communicating with other health hearing care practitioner (nursing, Dr. Lucia), indepentently interpreting results, counseling the patient and care coordination
[2024-01-02 10:40] LABS: Troponin I 131 ng/L (< or =60)
[2024-01-02 10:46] LABS: Lab Add On Test DONE
[2024-01-02 11:01] LABS: Troponin I 160 ng/L (< or =60)
--- NOTE | 2024-01-02 11:29 | PT.INNT ---
PT Notes Visit Reasons: Left Hip Fracture Attempted to see patient twice this morning. Per nurse, patient has not complained of any pain since early today. She has had her morning pain medications as of 7 am per nurse. Patient could not be seen during the first attempt as RT staff came in to do ECG testing. During the second attempt, PT and [facility] Chow[facility]ury was prepping up patient's bed and chair but patient verbalizes 5/10 pain in the surgical site and stated that she be given a day or two before she moves. She would not listen to PT education about slow and gentle mobilization out of bed to minimize post op complications. Will coordinate with nurse about pain medication intake and re-approach patient again this afternoon.
[2024-01-02] MEDS: Polyethylene Glycol 3350 17 GM PACKET PO ×2 (12:15→21:01)
[2024-01-02] MEDS: Methylnaltrexone 12 MG/0.6 ML VIAL SC (12:17)
[2024-01-02] MEDS: HYDROmorphone 2 MG TAB PO ×3 (12:25→22:32)
[2024-01-02] MEDS: Acetaminophen 500 MG TAB 1000 MG PO ×2 (13:18→21:02)
[2024-01-02] MEDS: VANCOMYCIN/WATER (PEG) 1 GM/200 ML BAG IVPB (13:19)
[2024-01-02 13:20] LABS: Troponin I 105 ng/L (< or =60)
--- NOTE | 2024-01-02 13:24 | CMPROGNOTE_ITS ---
Date of service: 01/02/24 Time of Service: 13:24 Care Management Progress Note Progress Note Text Progress Note Text: S/O:Elvi was sitting up in bed in the ICU when CM met with her. She went to the OR yesterday for a hip repair and is still having pain which she rated as a 6/10. Elvi declined to work with PT this morning secondary to her level of discomfort. Last night Elvi became hypotensive and was started on vasopressors for BP support. She was also anemic with a Hgb of 7.4, down from 9.7 earlier in the day. so she received one unit of blood. Elvi is still agreeable to going to a SNF and referrals have been sent to [facility] and [facility]. A: Elvi is an 83 year old woman admitted on 12/31/23 with a fractured hip P:Anticipate Elvi will be transferred to a SNF when medically ready for discharge. She will follow up with the facility providers and plan of care. Transportation will be via facility van or RCT. CM will follow and continue to assess for discharge needs. SDOH(Care Management) Screening Will the Patient Participate in the Screening?: Unable to obtain
--- NOTE | 2024-01-02 13:45 | IN_ITS ---
PT Notes Visit Reasons: Left Hip Fracture Physical Therapy Inpatient Initial Evaluation Date: 01/02/2024 Referring Doctor: Star Lucia MD PT Orders: PT CONSULT: S/P Ortho Surgery. S/P L Hip IMN. Minimal ambulator at baseline. Precautions: Fall. Standard. WBAT on R E with AD per Dr. Lucia. Patient Profile/Admitting Diagnosis: Elvi is an 83-year-old female patient with past medical history significant for recent R superior and inferior pubic rami fracture in July 2023 and with 03/19/[address] scan findings of multi-level compression fracture of T6, T7, T8 and T12 as well as history of alcoholism who presented to the ED on 12/31/2023 due to a mechanical fall while getting out of wheelchair falling on her L side. Patient sustained an acute comminuted intertrochateric fracture of the L femur with varus angulation and is S/P L intrameduallry nail fixation on postoperative day 1. Patient is also being managed for acute urinary tract infection, elevated CK, and ETOH withrawal. PMHX: All Active Problems (Updated 12/31/23 @ 17:14 by Fior Graves APRN) Discharge planning issues (Acute) On deep vein thrombosis (DVT) prophylaxis (Acute) Elevated CK (Acute) Closed fracture of left hip (Acute) Acute UTI (Acute) Skin ulcer (Acute) Palliative care patient (Acute) Palliative care encounter (Acute) DNR (do not resuscitate) (Acute) Chronic pain (Chronic) E. 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 fell down and could not get up Hypertension (Chronic) with labile blood pressure.Morbid obesity (Chronic) Allergic rhinitis (Chronic) Hyperlipidemia (Chronic) History of anemia (Chronic) Fibromyalgia (Chronic) DJD (degenerative joint disease) (Chronic) Chronic depression (Chronic) Insomnia (Chronic) Gastroesophageal reflux disease (Chronic) Hiatal hernia (Chronic) Irritable bowel syndrome (Chronic) History of surgery (Chronic) a. S/P open right ankle fracture/dislocation. b. Left knee arthroscopy. c. Right wrist fracture repair. d. T/A as a child. Dehydration, mild (Acute 09/22/14) Housing or economic circumstance (Chronic 09/22/14) a. No heat for 1-1/2 daysH/O fall (Chronic) Anemia (Chronic) Alcohol withdrawal delirium (Acute 09/22/14) Rhabdomyolysis (Acute 09/22/14) Ataxia (Chronic) COPD (chronic obstructive pulmonary disease) (Chronic) Onychomycosis (Chronic) Depression (Chronic) Medical History Frequent falls Alcohol withdrawal NSIP (nonspecific interstitial pneumonia) Fracture of right inferior pubic ramus Fracture of right superior pubic ramus ACP (advance care planning) Alcohol use disorder Laceration of skin of right forearm Skin ulcer of lower leg DVT prophylaxis Interstitial lung disease Laceration of arm, right, complicated Fractured pelvis T12 compression fracture Acute exacerbation of chronic low back pain Fall Alcohol dependence Person living alone (09/22/14) Hiatal hernia IBS (irritable bowel syndrome) Hypertension Allergic rhinitis GERD (gastroesophageal reflux disease) DJD (degenerative joint disease) Hyperlipidemia Hypercholesterolemia Fibromyalgia Depression Anemia Alcohol abuse Insomnia Surgical History Tonsillectomy and adenoidectomy Repair fracture right wrist ORIF right ankle Colonoscopy - MAC (11/18/16) Arthroplasty of knee left Social History/Home Situation: Patient lives alone in single level dwelling with ramp to enter.? Patient's baseline function mobility is with use of FWW for all transfers.? Main mode of mobility indoors is with use of wheelchair due to her chronic pain syndrome and frequent falls. Rides RCT to go to MD appointments. Chronic opioid use since 1994. Has somebody who helps her with grocery shopping. Equipment Owned/DME: Wheelchair, Rollator walker, FWW, SPC Subjective:? Highly anxious about getting out of bed. Asked if she could be given a day or two more before she goes out of bed despite explanation that early mobilization to minimize post op complications is important. Pain level shot up with weight bearing and prevented transfer onto chair after needing assist of 3 to stand up from edge of bed. Patient opted to wait in standing until her bed was changed by [facility]. Complained of pain all over. Thankful after she was assisted back onto bed. Declined any further attempts at movement this afternoon. Objective:?? General Observation: Supine in bed. Telemetry monitoring in place. In NAD. O2 supp at 1 L/minute via NC. Mepilex Ag over surgical incision. Anxious about getting out of bed. Mental Status: Alert and oriented x 4 Pain: As above ? ROM: Right Upper Extremity: Glenohumeral joint flexion 90 degrees with significant shrug/scapular elevation secondary to chronic rotator cuff tear active assisted to 150 with min complaints of pain.? Elbow flexion extension within normal limits.? Wrist within normal limits, able to make full fist. Left Upper Extremity: Glenohumeral joint flexion and abduction 140 degrees, elbow flexion extension within normal limits, wrist active range of motion wit hin normal limits.? Able to make a full fist. Right Lower Extremity: Patient is able to perform active hip flexion to 120 degrees without back pain.? Knee flexion and extension within normal limits. Left Lower Extremity: Unable to test for Strength: Right Upper Extremity: 3/5 shoulder flexion and abduction.? 4/5 bicep and tricep.? Wrist flexion and extension 4+/5.? Good homeowner association manager strength Left Upper Extremity: 4/5 shoulder flexion and abduction, 4/5 bicep and tricep.? Wrist extension and flexion 4+/5.? Good homeowner association manager. Right Lower Extremity: Hip flexors 3-/5. Hip abductors 3-/5. Knee flexors 4-/5. Knee extensors 4-/5. Ankle dorsiflexors 4-/5. Ankle plantarflexors 4-/5. Left Lower Extremity: Unable to test Sensation:? Patient reports intact sensation as to pain and light touch throughout bilateral lower extremities. Bed Mobility/Transfers: Nurse and CLAIMS MANAGER assisted with assessment for safety. Moderate verbal cueing provided for hand placement, movement sequence, and posture to minimize pain Supine to sit: moderate assist of 2 Sit to supine: maximal assist of 2 Sit to stand: maximal assist of 2 Stand to sit: maximal assist of 2 Bed to chair unable to test due to increased pain level and worsening anxiety Gait:? Unable to test due to pain level and worsening anxiety Balance:? Static Sitting: Good Dynamic Sitting: Good Static Standing: ? Poor Dynamic Standing: Unable to test Special Tests: Mobility Limitations Standardized Measure [facility] 6 clicks Basic Mobility Inpatient Short Form: Raw Score: 6 ? CMS Score: 100% ? ? Informed Consent/Education:? Patient instructed in purpose of PT consult and plan of care. ASSESSMENT:?? Pain level high and anxiety with movement through the roof which limited mobility assessment to just standing from edge of bed. Patient will require services to regain modified independent transfer per prior evel of function. Will continue to provide feedback to nurse and hospitalist regarding pain response from mobility performance to ensure that pain is better managed to achieve mobility goals. Patient presents with clinical signs and symptoms consistent with current/admitting diagnoses that have resulted to mobility limitations, gait instability, generalized weakness, and overall ADL decline as demonstrated by the following impairment level findings: 1. Decreased strength to B UE/LE major muscle groups as before 2. Impaired standing balance 3. Impaired activity tolerance 4. High pain level and high anticipation of pain, high anxiety Impairments are contributing to the following functional limitations: 1. Decline in bed mobility skills 2. Decline in transfer skills 3. Difficulty with ambulation without assistive device 4. Increased completion time for mobility ADL performance 5. Increased risk for falls Patient is assessed as a 46322 high complexity based on the following: History: 82-year-old female with past medical history as indicated above Examination: Demonstrable impairment in strength, balance, and mobility level with underlying impairments and functional limitations as exhibited above as well as deficit score of 100% utilizing the [facility] Mobility Inpatient Short Form Presentation: Evolving Decision Makin high complexity Goals: Goals X1 week 1. Supine-Sit: minimal assist 2. Sit-Supine: minimal assist 3. Sit-Stand: Minimal assist with front-wheeled walker 4. Stand-Sit: Minimal assist with front-wheeled walker 5. Bed-Chair: Minimal assist with front-wheeled walker 6. Chair-Bed: Minimal assist with front-wheeled walker 7. Gait: Minimal assist with 15 feetusing front-wheeled walker ? Plan of Care/Treatment Plan: 1-2x/day, 7 days/week x 1 week. Plan of care has been reviewed with the BRIEF WRITER providing the service under Physical Therapy direction. Initiate Physical Therapy intervention for strengthening, bed mobility, transfers, gait, stairs, balance training, use of assistive device.? DISCHARGE RECOMMENDATIONS:? [] Home with no services [] [] Home with services [specify] [] Home with outpatient PT [] [X] SNF for continued rehabilitation. Patient will benefit from [facility] for continued skilled physical therapy services in order to progress mobility level, strength, and balance in preparation for a safe discharge to home. [] Maintenance Mechanic Technician Care [] [] SNF versus LTC based on ability to participate and progress [] TREATMENT CODE/TIME: 70432 x 24 minutes for 1 unit (13:45-14:09). Thank you for the opportunity to participate in the care of this patient. Kelsey Skelton PT, DPT, CLT [facility] [place], [place]
[2024-01-02 14:33] LABS: HCT 22.5 % (36.0-46.0); HGB 7.2 g/dL (11.2-15.7); MCH 35.1 pg (27.0-33.0); MPV 9.2 fL (8.0-11.0); Platelet Count 152 10^3/uL (130-400); RBC 2.05 10^6/uL (3.93-5.22); RDW 13.6 % (11.7-14.6); RDW-SD 55.2 fL
[2024-01-02 14:34] LABS: MCV 110 fL (80-95)
[2024-01-02 16:05] LABS: Troponin I 82 ng/L (< or =60)
--- NOTE | 2024-01-02 16:47 | PGE_ITS ---
Date of Service Date of service: 01/02/24 Time of Service: 07:30 Assessment and Plan Assessment and plan (1) Intertrochanteric fracture of left femur: Status: Acute Assessment and plan: Elvi is s/p IMN fixation of left intertrochanteric hip fracture. She continues to struggle with low urine output and hypotension. Her Hgb is low and has dropped since yesterday. I don't think there is any concern for sepsis, at least currently. I would advocate for at least one unit of blood and continue to follow. She seems to be tolerating this well. Continue with PT consult - WBAT with assistive devices. Qualifiers: Encounter type: initial encounter Fracture type: closed Fracture alignment: displaced Qualified Code(s): S72.142A - Displaced intertrochanteric fracture of left femur, initial encounter for closed fracture Subjective Subjective Interval history since last seen: Elvi had continued hypotension and low urine output overnight. She was givne increasing with minimal improvement. She was started on some norepinephrine which did improve blood pressure and urine output. Hgb has dropped to 7.4. Dr. Hagen had concern for sepsis overnight although without fever and normal procalcitonin. No acute issues with the left hip. Objective Last Vital Signs Temp 36.8 C 01/02/24 11:00 Pulse 81 01/02/24 14:46 Resp 13 01/02/24 15:00 BP 96/52 L 01/02/24 14:46 Pulse Ox 97 01/02/24 15:00 Laboratory Results - last 24 hr 01/01/24 01/01/24 01/02/24 17:05 23:51 01:15 WBC 4.75 RBC 2.13 L Hgb 9.7 L 7.4 L D Hct 29.4 L 22.9 L MCV 108 H MCH 34.7 H MCHC 32.3 RDW 13.7 Plt Count 143 MPV 9.4 Immature Gran % 0.4 Neutrophils % 71.8 Lymphocytes % 12.0 Monocytes % 15.8 Eosinophils % 0.0 Basophils % 0.0 Nucleated RBC % 0.0 Absolute Neutrophils 3.41 Absolute Lymphocytes 0.57 L Absolute Monocytes 0.75 Absolute Eosinophils 0.00 Absolute Basophils 0.00 RBC Morphology See Below Macrocytosis 1+ PT INR APTT VBG pH 7.35 VBG pCO2 49 VBG pO2 65 VBG HCO3 27 VBG Total CO2 26 VBG O2 Saturation 92 VBG Base Excess 1 VBG Lactate 1.1 Sodium 136 Potassium 5.2 H D Chloride 104 Carbon Dioxide 27.0 Anion Gap 5.0 BUN 12 Creatinine 0.6 Est GFR (CKD-EPI 2020) 89.01 Glucose 141 H Calcium 7.3 L Magnesium Total Bilirubin 0.4 AST 33 ALT 16 Alkaline Phosphatase 121 H Troponin I Total Protein 4.3 L Albumin 1.6 L Procalcitonin < 0.1 MRSA (TEM-PCR) Negative Add-On Test Request ABO/Rh Antibody Screen Crossmatch 01/02/24 01/02/24 01/02/24 02:15 05:12 09:50 WBC 5.79 RBC 2.22 L Hgb 7.7 L Hct 23.7 L MCV 107 H MCH 34.7 H MCHC 32.5 RDW 13.7 Plt Count 176 MPV 9.6 Immature Gran % 0.5 Neutrophils % 62.8 Lymphocytes % 18.8 Monocytes % 17.4 Eosinophils % 0.3 Basophils % 0.2 Nucleated RBC % 0.0 Absolute Neutrophils 3.63 Absolute Lymphocytes 1.09 L Absolute Monocytes 1.01 H Absolute Eosinophils 0.02 Absolute Basophils 0.01 RBC Morphology See Below Macrocytosis 2+ PT 10.8 INR 1.1 APTT 38.1 H VBG pH VBG pCO2 VBG pO2 VBG HCO3 VBG Total CO2 VBG O2 Saturation VBG Base Excess VBG Lactate 0.6 0.8 Sodium 138 Potassium 4.5 Chloride 107 Carbon Dioxide 25.1 Anion Gap 5.9 BUN 11 Creatinine 0.6 Est GFR (CKD-EPI 2020) 89.01 Glucose 135 H Calcium 7.5 L Magnesium 1.8 Total Bilirubin AST ALT Alkaline Phosphatase Troponin I 160 H* 131 H* Total Protein Albumin Procalcitonin MRSA (TEM-PCR) Add-On Test Request DONE ABO/Rh Antibody Screen Crossmatch 01/02/24 01/02/24 01/02/24 12:40 14:20 15:34 WBC 4.60 RBC 2.05 L Hgb 7.2 L Hct 22.5 L MCV 110 H MCH 35.1 H MCHC 32.0 RDW 13.6 Plt Count 152 MPV 9.2 Immature Gran % Neutrophils % Lymphocytes % Monocytes % Eosinophils % Basophils % Nucleated RBC % Absolute Neutrophils Absolute Lymphocytes Absolute Monocytes Absolute Eosinophils Absolute Basophils RBC Morphology Macrocytosis PT INR APTT VBG pH VBG pCO2 VBG pO2 VBG HCO3 VBG Total CO2 VBG O2 Saturation VBG Base Excess VBG Lactate Sodium Potassium Chloride Carbon Dioxide Anion Gap BUN Creatinine Est GFR (CKD-EPI 2020) Glucose Calcium Magnesium Total Bilirubin AST ALT Alkaline Phosphatase Troponin I 105 H* 82 H* Total Protein Albumin Procalcitonin MRSA (TEM-PCR) Add-On Test Request ABO/Rh O Positive Antibody Screen NEGATIVE Crossmatch See Detail Time Spent with Patient Time Spent with Patient: <25 minutes Time was spent: referring, communicating with other health day care assistant and indepentently interpreting results
[2024-01-02] MEDS: Docusate Sodium 100 MG CAP PO ×2 (18:26→21:01)
[2024-01-02] MEDS: QUEtiapine 50 MG TAB PO (21:01)
[2024-01-02] MEDS: traZODone 100 MG TAB 200 MG PO (21:02)
[2024-01-02] MEDS: Pantoprazole 40 MG VIAL IVP (21:03)
[2024-01-02] MEDS: Miconazole 2% Topical Powder 85 GM BTL (22:14)
[2024-01-02] MEDS: Senna TAB 1 TAB PO (22:32)
[2024-01-03] VITALS (69 sets, daily range): BP systolic 85–120; BP diastolic 35–95; PULSE 73–114; RESP 14–31; TEMP 36.3–38; O2SAT 85–100
--- NOTE | 2024-01-03 | DI.RAD_ITS ---
Exam(s) XR FEMUR LT EXAM: XR FEMUR LT CLINICAL HISTORY: s/p IMN fixation of L IT frx, worsening pain. TECHNIQUE: 2D digital imaging was performed. Four images were obtained. AP and lateral views views were obtained. COMPARISON: CR,XR XR HIP LT COMPLETE AP PELVIS from 12/31/2023 XA XR HIP LT IN OR from 01/01/2024 FINDINGS: BONES: There are stable post operative changes present. There is an intramedullary christen transfixing t he intertrochanteric fracture of the left femur. No new fracture or dislocation. JOINTS: The patient has a left total knee replacement which is incompletely imaged. SOFT TISSUE: Normal. IMPRESSION: Stable postoperative changes. DATA REPOSITORY: RADIATION DOSE DELIVERED:
--- NOTE | 2024-01-03 | DI.US_ITS ---
Exam(s) US RENAL EXAM: US RENAL CLINICAL HISTORY: sepsis, Enterococcus UTI. TECHNIQUE: Bonilla scale, color and spectral Doppler were used. COMPARISON: No exams were available for comparison FINDINGS: Renal size in cm: Right: 10.6. Left: 10.2. Echogenicity: Normal. Hydronephrosis: No. Cyst or mass: No. Nephrolithiasis: No. Other findings: None. Bladder:The urinary bladder is incompletely distended with the presence of a Harris catheter. Ureteral jets: Right: Not visualized on this examination. Left: Not visualized on this examination. Prevoid vol:69 cc Postvoid vol:2 cc Renal color flow: Symmetric and within normal limits. IMPRESSION: 1. No evidence of hydronephrosis. Kidneys are grossly unremarkable sonographically. 2. Suboptimal evaluation of the urinary bladder due to poor distension and the presence of the Harris catheter. DATA REPOSITORY:
[2024-01-03] MEDS: Norepinephrine in D5W 8 MG/250 ML BAG 5 MG IV (00:47)
[2024-01-03] MEDS: VANCOMYCIN/WATER (PEG) 1 GM/200 ML BAG IVPB ×2 (02:09→14:02)
[2024-01-03] MEDS: HYDROmorphone 2 MG TAB PO ×4 (02:55→16:30)
[2024-01-03] MEDS: CEFEPIME 1 GM in Normal Saline 50 ML IVPB ×3 (03:59→19:58)
[2024-01-03 06:47] LABS: Abs Immature Grans 0.03 10^3/uL (0.0-0.06); Absolute Basophil Count 0.01 10^3/uL (0.0-0.2); Absolute Eosinophil Count 0.44 10^3/uL (0.0-0.7); Absolute Lymphocyte Count 1.25 10^3/uL (1.2-3.4); Absolute Monocyte Count 0.92 10^3/uL (0.1-0.8); Absolute Neutrophil Count 2.46 10^3/uL (1.2-6.7); Basophils % 0.2 %; Eosinophils % 8.6 %; HCT 25.3 % (36.0-46.0); HGB 8.2 g/dL (11.2-15.7); Immature Grans % 0.6 %; Lymphocytes % 24.5 %; MCH 33.9 pg (27.0-33.0); MCHC 32.4 % (32.0-36.0); MPV 9.4 fL (8.0-11.0); Neutrophils % 48.1 %; Platelet Count 173 10^3/uL (130-400); RBC 2.42 10^6/uL (3.93-5.22); RDW 17.6 % (11.7-14.6); RDW-SD 67.9 fL; WBC 5.11 10^3/uL (4.4-10.8)
[2024-01-03 06:49] LABS: MCV 105 fL (80-95)
[2024-01-03 07:06] LABS: Anion Gap 1.8 mmol/L (3-11); BUN 9 mg/dL (7-18); CO2 28.2 mmol/L (21.0-32.0); CREATININE 0.6 mg/dL (0.55-1.02); Calcium 7.9 mg/dL (8.5-10.1); Chloride 110 mmol/L (98-107); Estimated GFR 89.01 (mL/min/1.73m2); Glucose 113 mg/dL (74-106); Potassium 4.6 mmol/L (3.5-5.1); Sodium 140 mmol/L (136-145)
--- NOTE | 2024-01-03 07:47 | W.PM.PROGNOT ---
Date of Service Date of service: 01/03/24 Time of Service: 07:05 Assessment and Plan Assessment and plan (1) Intertrochanteric fracture of left femur: Status: Acute Assessment and plan: And continues to have struggles with hypotension and low urine output although urine output seems to be improving. She is unable to wean off the norepinephrine. Due to increasing pain obtain x-ray this morning showedno signs of complication. The right is in appropriate position with some varus collapse. My suspicion is that the lack of urine output and low blood pressure is due to intravascular depletion. Procalcitonin is normal. She had 1 temperature of 30 degrees but no further fevers. She is to start antibiotics for suspected UTI. I will continue to watch this. Her baseline is only pivot transfer to the wheelchair so I think this should frame the the activities that she is asked to do. She is weightbearing as tolerated on the left leg with assistive devices. She has completed postoperative antibiotics. Qualifiers: Encounter type: initial encounter Fracture type: closed Fracture alignment: displaced Qualified Code(s): S72.142A - Displaced intertrochanteric fracture of left femur, initial encounter for closed fracture Subjective Subjective Interval history since last seen: And was able to mobilize with maximal support yesterday. She does complain of increasing pain about the left hip. No pain elsewhere. Overnight she has had a significant increase in urine output. She has been unable to wean off of norepinephrine. She did receive 2 total units of blood. Exam Narrative Exam Narrative: Sitting up in the hospital bed. Alert and orient x 3. No acute distress. Left lower extremity dressing is clean dry and intact. She is able to tolerate some internal and external rotation of the left hip. This does cause pain. She remarks it feels like it used to. Her leg is normal in appearance without significant external rotation or shortening. No pain with palpation distally within the leg. Objective Last Vital Signs Temp 36.6 C 01/03/24 06:17 Pulse 98 H 01/03/24 06:17 Resp 20 01/03/24 06:17 BP 100/56 L 01/03/24 06:17 Pulse Ox 99 01/03/24 06:17 Laboratory Results - last 24 hr 01/02/24 01/02/24 01/02/24 05:12 09:50 12:40 WBC RBC Hgb Hct MCV MCH MCHC RDW Plt Count MPV Immature Gran % Neutrophils % Lymphocytes % Monocytes % Eosinophils % Basophils % Nucleated RBC % Absolute Neutrophils Absolute Lymphocytes Absolute Monocytes Absolute Eosinophils Absolute Basophils Sodium Potassium Chloride Carbon Dioxide Anion Gap BUN Creatinine Est GFR (CKD-EPI 2020) Glucose Calcium Troponin I 160 H* 131 H* 105 H* Add-On Test Request DONE ABO/Rh O Positive Antibody Screen NEGATIVE Crossmatch See Detail 01/02/24 01/02/24 01/03/24 14:20 15:34 06:10 WBC 4.60 5.11 RBC 2.05 L 2.42 L Hgb 7.2 L 8.2 L Hct 22.5 L 25.3 L MCV 110 H 105 H D MCH 35.1 H 33.9 H MCHC 32.0 32.4 RDW 13.6 17.6 H Plt Count 152 173 MPV 9.2 9.4 Immature Gran % 0.6 Neutrophils % 48.1 Lymphocytes % 24.5 Monocytes % 18.0 Eosinophils % 8.6 Basophils % 0.2 Nucleated RBC % 0.0 Absolute Neutrophils 2.46 Absolute Lymphocytes 1.25 Absolute Monocytes 0.92 H Absolute Eosinophils 0.44 Absolute Basophils 0.01 Sodium 140 Potassium 4.6 Chloride 110 H Carbon Dioxide 28.2 Anion Gap 1.8 L BUN 9 Creatinine 0.6 Est GFR (CKD-EPI 2020) 89.01 Glucose 113 H Calcium 7.9 L Troponin I 82 H* Add-On Test Request ABO/Rh Antibody Screen Crossmatch Objective Narrative Objective Narrative: Hemoglobin shows increase to 8.2. X-ray of the left femur shows intramedullary device in appropriate position. Do not see any sign of failure. Time Spent with Patient Time Spent with Patient: 25-34 minutes Time was spent: obtaining and/or reviewing separately otained hiistory and counseling the patient
[2024-01-03] MEDS: Polyethylene Glycol 3350 17 GM PACKET PO ×2 (07:54→20:01)
[2024-01-03] MEDS: Normal Saline Flush 10 ML SYR IVP ×2 (07:54→20:02)
[2024-01-03] MEDS: Calcitonin-Salmon, Synthetic 3.7 ML BTL NS (07:55)
[2024-01-03] MEDS: Cholecalciferol (Vitamin D3) 400 UNIT TAB 800 UNIT PO (07:55)
[2024-01-03] MEDS: Acetaminophen 500 MG TAB 1000 MG PO ×3 (07:56→19:58)
[2024-01-03] MEDS: Cyanocobalamin 500 MCG TAB PO (07:56)
[2024-01-03] MEDS: Sucralfate 1 GM TAB PO ×4 (07:56→20:15)
[2024-01-03] MEDS: DULoxetine 30 MG CAP 60 MG PO (07:56)
[2024-01-03] MEDS: Potassium Chloride 20 MEQ TABCR PO ×3 (07:57→20:00)
[2024-01-03] MEDS: Ferrous Sulfate 325 MG TAB PO ×3 (07:57→20:01)
[2024-01-03] MEDS: Gabapentin 100 MG CAP PO (07:57)
[2024-01-03] MEDS: Fluticasone NASAL SPRAY 16 GM BTL NS ×2 (08:14→20:00)
[2024-01-03] MEDS: DULoxetine 30 MG CAP PO (08:18)
--- NOTE | 2024-01-03 08:30 | DI.RAD_ITS ---
Exam(s) XR PORTABLE CHEST AP EXAM: XR PORTABLE CHEST AP CLINICAL HISTORY: fever TECHNIQUE: 2D digital imaging was performed of the chest. Two images were obtained. AP views were obtained. COMPARISON: CR,XR XR PORTABLE CHEST AP from 01/02/2024 FINDINGS: There is poor inspiration. MEDIASTINUM: There is again seen a hiatal hernia. HEART: Normal. PULMONARY VASCULATURE: Normal. LUNGS: There are mild increased markings seen in the perihilar regions bilaterally. This has a simil ar appearance compared to the prior examination. This area might be exaggerated secondary to the poo r inspiration. PLEURAL SPACE: No pleural effusion or pneumothorax. BONE:Within normal limits for the patient's age. Degenerative changes are seen in the shoulders bila terally. OTHER FINDINGS:The tip of the right IJ catheter is in good position in the superior vena cava. IMPRESSION: 1. Examination limited by poor inspiration. 2. Question of perihilar infiltrates. DATA REPOSITORY: RADIATION DOSE DELIVERED:
[2024-01-03 09:06] LABS: Lab Add On Test DONE
[2024-01-03 09:44] LABS: Procalcitonin < 0.1 ng/mL
--- NOTE | 2024-01-03 10:07 | CMPROGNOTE_ITS ---
Date of service: 01/03/24 Time of Service: 10:07 Care Management Progress Note Progress Note Text Progress Note Text: S/O: Elvi is agreeable to going to a SNF and referrals have been sent to [facility], [place], admissions at [facility] requested to discuss admission expectations. Elvi's ability to engage in mobilization with PT continues to be limited by pain and anxiety. CM continues to follow. A: Elvi is an 83 year old woman admitted on 12/31/23 with a fractured hip P: Anticipate Elvi will be transferred to a SNF when medically ready for discharge. She will follow up with the facility providers and plan of care. Transportation will be via facility van or RCT. CM will follow and continue to assess for discharge needs. SDOH(Care Management) Screening Will the Patient Participate in the Screening?: Unable to obtain
--- NOTE | 2024-01-03 10:21 | PT.INTREAT ---
PT Notes Visit Reasons: Left Hip Fracture Date: 01/03/2024 PRECAUTIONS: Fall. Standard. WBAT on R E with AD per Dr. Lucia. SUBJECTIVE: Pt in bed when approached for therapy this morning, pt already medicated and had Xray taken. pt very anxious, expressing she is not transferring from the bed to the recliner, agreed to just standing as long as she doesn't need to go to the recliner. Pt re-approached in the afternoon to trial the steady lift which pt refused, pt expressed X-ray was done on her after her session with therapy in the morning followed by ultrasound which was still being done when this therapist arrived in pt room. pt reports she is exhausted from all the test being done and would not like to get out of bed to try the steady lift, pt requested for assistance with rolling to allow for better exposure while the medical equipment technician is taking her imaging test. Objective: Supine in bed. Telemetry monitoring in place. In NAD. O2 supp at 1 L/minute via NC. Mepilex Ag over surgical incision. Anxious about getting out of bed. Mental Status: Alert and oriented x 4 Pain: 10/10 on incision site VITALS: monitored by nursing in ICU Therapeutic Activities 04995: Direct one-on-one instruction in dynamic activities to improve functional performance. ?? BED MOBILITY/TRANSFERS? Rolling L/R: max A+2 Supine-sit: ? Max A+2? Sit-supine: ? max A+2 ? Sit-stand: ? ?max A+2 ? Stand-sit: ?? max A+2? Bed-Chair:? ?Attempted/ pt refused? Chair-bed: Attempted/ pt refused? Provided skilled cues and instruction on performance and technique throughout. Static standing on the EOB 5mins x2 attempted stand pivot transfer but pt not cooperating, verbally expressed she doesn't want to do the transfer. ? ASSESSMENT:?Pt reports pain is unbeareable and is very anxious as a result, expressed that she would like stronger pain meds to help with pain management so she could do more about transferring, pt education about importance of bed repositioning and sitting up to avoid pulmonary issues, pt understands but would like pain to be addressed with medication beofre participating with transfer training. pt refused further engagement after getting back in bed. pt expressed that she feels crepitus on her left hip during movement, reports muscle spasms during transfer activity. pt agreed to trying steady lift transfer after lunch and pain medication. PLAN: Continue with balance training, global strengthening and general conditioning for improved safety, mobility and activity tolerance until pt is ready for DC. TREATMENT CODE/TIME: [id number] 38mins (9:42-10:20am) [id number] 15mins (1:15-1:30pm)
--- NOTE | 2024-01-03 10:59 | W.PM.PROGNOT ---
Date of Service Date of service: 01/03/24 Time of Service: 10:59 Assessment and Plan Assessment and plan (1) Hypotension: Status: Acute Assessment and plan: seconary to sepsis UTI (Enterococcous), now on cefepime and vancomcyin. if blood cultures are negative then I would dc her cefepime but continue the vancomycin for the enterococcus. May be able to modify to ampicillin if enterococcus is sensitive. Improving but still on N.E. drip at low dose, will add midodrine to her regimen and attempt to wean off norepinephrine. Critical care time spent interviewing and examining the patient, reviewing studies, discussing case with patient's nurse and consulting physicians was 35 minutes Qualifiers: Hypotension type: hypotension due to hypovolemia Qualified Code(s): E86.1 - Hypovolemia (2) Acute UTI: Status: Acute Assessment and plan: patient had low grade fever this morning. repeat blood cultures were obtained. I will get imaging of her kidneys to r/o pyelonephritis. continue Vancomcyin and cefepime pending blood culture results. (3) Elevated troponin I level: Status: Acute Assessment and plan: troponin I level peaked at 160 and has come down to 82, no ischemic EKG changes; normal LV and RV function on her echocardiogram. This apparently was demand ischemia type II d/t her sepsis and hypotension. No further workup planned at this time. Monitor for any symptoms. (4) Anemia: Status: Chronic Assessment and plan: worsening anmia, patient has been on iron supplements at home so she can tell if her stools have been dark d/t the iron vs blood. I reviewed her iron studies from 07/30/23 and her studies are more consistent w/ anemia of chronic disease/chronic inflammation, serum ferritin was normal and TIBC was low and serum iron was low. folate and B12 were normal. s/p transfusion of 1 unit of PRBC yesterday. Hb now 8.2, will monitor. Qualifiers: Anemia type: other cause Qualified Code(s): D63.8 - Anemia in other chronic diseases classified elsewhere (5) Intertrochanteric fracture of left femur: Status: Acute Assessment and plan: POD #2 left hip s/p IM fixation; begin P.T. 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 encourage use of IS, mobilize her, support w/ NC oxygen Qualifiers: Chronicity: chronic Qualified Code(s): J96.11 - Chronic respiratory failure with hypoxia (7) NSIP (nonspecific interstitial pneumonia): (8) Constipation: Status: Acute Assessment and plan: will give her Relistor, PEG and senna, metamucil; still no BM since 12/27. will repeat her Relistor and give her enema today. Qualifiers: Constipation type: drug induced constipation Qualified Code(s): K59.03 - Drug induced constipation Subjective Subjective Interval history since last seen: Elvi states that she is still having severe left hip pain. X ray was done and showed stable fixation of the hip postoperatively. She remains on N.E. drip although this is being weaned. She is making good U.O. and her mentation is normal. Exam Narrative Exam Narrative: Elvi is sitting up in bed. She did get up to the bedside for P.T. w/ a lot of pain Left hip did not appear edematous and no signs of excessive bruising Lungs: clear w/ prolonged expiratory phase Heart: RRR Abdomen: soft, nontender, nondistended cortes clear yellow urine Objective Last Vital Signs Temp 38.0 C H 01/03/24 08:57 Pulse 100 H 01/03/24 09:01 Resp 16 01/03/24 10:00 BP 102/56 L 01/03/24 09:01 Pulse Ox 97 01/03/24 09:02 Laboratory Results - last 24 hr 01/02/24 01/02/24 01/02/24 05:12 12:40 14:20 WBC 4.60 RBC 2.05 L Hgb 7.2 L Hct 22.5 L MCV 110 H MCH 35.1 H MCHC 32.0 RDW 13.6 Plt Count 152 MPV 9.2 Immature Gran % Neutrophils % Lymphocytes % Monocytes % Eosinophils % Basophils % Nucleated RBC % Absolute Neutrophils Absolute Lymphocytes Absolute Monocytes Absolute Eosinophils Absolute Basophils Sodium Potassium Chloride Carbon Dioxide Anion Gap BUN Creatinine Est GFR (CKD-EPI 2020) Glucose Calcium Troponin I 160 H* 105 H* Procalcitonin Add-On Test Request ABO/Rh O Positive Antibody Screen NEGATIVE Crossmatch See Detail 01/02/24 01/03/24 01/03/24 15:34 06:10 08:59 WBC 5.11 RBC 2.42 L Hgb 8.2 L Hct 25.3 L MCV 105 H D MCH 33.9 H MCHC 32.4 RDW 17.6 H Plt Count 173 MPV 9.4 Immature Gran % 0.6 Neutrophils % 48.1 Lymphocytes % 24.5 Monocytes % 18.0 Eosinophils % 8.6 Basophils % 0.2 Nucleated RBC % 0.0 Absolute Neutrophils 2.46 Absolute Lymphocytes 1.25 Absolute Monocytes 0.92 H Absolute Eosinophils 0.44 Absolute Basophils 0.01 Sodium 140 Potassium 4.6 Chloride 110 H Carbon Dioxide 28.2 Anion Gap 1.8 L BUN 9 Creatinine 0.6 Est GFR (CKD-EPI 2020) 89.01 Glucose 113 H Calcium 7.9 L Troponin I 82 H* Procalcitonin < 0.1 Add-On Test Request DONE ABO/Rh Antibody Screen Crossmatch Time Spent with Patient Time Spent with Patient: 25-34 minutes Time was spent: preparing to see the patient(eg.review tests), ordering medications,tests, procedures, referring, communicating with other health long term care social worker, indepentently interpreting results, counseling the patient and care coordination
[2024-01-03] MEDS: Midodrine 2.5 MG TAB 5 MG PO ×3 (12:24→19:59)
[2024-01-03] MEDS: Lidocaine 5% Patch 2 PATCH TP (12:24)
[2024-01-03] MEDS: medroxyPROGESTERone 5 MG TAB 2.5 MG PO (12:24)
--- NOTE | 2024-01-03 13:23 | PHACLINREV_ITS ---
Pharmacy Admission Review Admission Clinical Review Admission Pharmacy Review: (Updated 01/02/24 @ 11:05 by Bridger Vicente MD) Constipation (Acute) Elevated troponin I level (Acute) Respiratory failure with hypoxia (Acute) Hypotension (Acute) Intertrochanteric fracture of left femur (Acute) Discharge planning issues (Acute) On deep vein thrombosis (DVT) prophylaxis (Acute) Elevated CK (Acute) Closed fracture of left hip (Acute) Acute UTI (Acute) fentanyl Adverse Reaction (Verified 12/31/23 13:44) Nausea Resuscitation Status DNR/DNI Height 5 ft 7 in Weight 93 kg Comments Comments/Follow Ups: Patient is POD #2 Pharmacy Admission Review Renal Dosing Renal Dosing: BUN 9 mg/dL (7-18) 01/03/24 06:10 Creatinine 0.6 mg/dL (0.55-1.02) 01/03/24 06:10 Medications needing adjustments: Reviewed (CrCl 49.9 mL/min) List of meds needing interventions: Current medications are okay Anticoagulation Anticoagulation: Hgb 8.2 g/dL (11.2-15.7) L 01/03/24 06:10 Hct 25.3 % (36.0-46.0) L 01/03/24 06:10 Plt Count 173 10^3/uL (130-400) 01/03/24 06:10 INR 1.1 (0.9-1.1) 01/02/24 02:15 Creatinine 0.6 mg/dL (0.55-1.02) 01/03/24 06:10 DVT Prophylaxis: Reviewed (None at this time - POD #2) Opiate Usage Evaluate Pain Scale/Pains Meds: Reviewed (Morphine CR BID with PRN doses of hyd romorphone) Scheduled Bowel Reg ordered if on Opiates?: Yes (Miralax with PRN docusate) Relevant Labs Relevant Labs: Sodium 140 mmol/L (136-145) 01/03/24 06:10 Potassium 4.6 mmol/L (3.5-5.1) 01/03/24 06:10 Chloride 110 mmol/L (98-107) H 01/03/24 06:10 Magnesium 1.8 mg/dL (1.8-2.4) 01/02/24 05:12 Electrolytes, C-Reactive P, ESR: Reviewed (Hgb slightly increased from 7.2 to 8.2, glucose 113) Cardiac Review Cardiac Review: Troponin I 82 ng/L (< or =60) H* 01/02/24 15:34 Blood Pressure [Left Arm] 100/56 Blood Pressure 102/56 0901 Blood Pressure 120/70 0801 Blood Pressure 99/59 0735 Blood Pressure 100/56 0617 Blood Pressure 101/55 0601 Blood Pressure 100/56 0401 BP, HR, EF%: Reviewed (BP 102/56, HR 100, no new troponin levels) QTc Review QTc: Reviewed (454 from 01/02/24) IV to PO Switch IV Medications: Reviewed (Cefepime, ketorolac, morphine, pantoprazole and vancomycin) Home Meds Home Med List reviewed: Reviewed Relevent Home Meds Not ordered & why?: Vitamin C, biotin, esomeprazole (has order for pantoprazole), ginkgo, glucosamine, luetin, zinc and vitamin A Current Meds Current Medication Order Review: Reviewed Comments: Spoke with provider about putting patient on long acting opioid for pain control. Calculated MME to be 145mg in past 24 hours. This is equivalent to 109mg/24 hours of long acting PO morphine. Spoke with provider who wanted to start with 40mg BID with continued PRN order and then titrate as needed. Levophed drip was paused today at 1053 Pharmacy Antibiotic Review Relevant Labs: Relevant Labs 01/03/24 06:10 Procalcitonin < 0.1 WBC 5.11 10^3/uL (4.4-10.8) 01/03/24 06:10 Procalcitonin < 0.1 ng/mL 01/03/24 06:10 Temperature 38.0 C Temperature 38.0 C Temperature 36.6 C Microbiology 01/02/24 10:00 Blood Culture - Preliminary Blood NO GROWTH 24 HOURS 01/02/24 09:50 Blood Culture - Preliminary Blood NO GROWTH 24 HOURS 12/31/23 14:53 Urine Culture - Preliminary Urine - Cath Harris Indwelling Enterococcus Species Pharmacy Antibiotic Activity: C/S review and Reviewed, no change Comments: Patient continues on cefepime and vancomycin day 2 for UTI sepsis. Current vancomycin dose is 1000mg q12h with predicted trough of 17.3 mg/dL. Will order trough level prior to next dose. WBC WNL but elevated temperature of 38 C today at 0800 and 0857. Repeat blood cultures pending, urine culture growing En terococcus. Waiting on sensitivities. Comments Comments/Follow Ups: Patient is POD #2
[2024-01-03] MEDS: Gabapentin 100 MG CAP 200 MG PO ×2 (14:08→20:00)
[2024-01-03] MEDS: Milk of Magnesia 30 ML CUP PO (19:59)
[2024-01-03] MEDS: Docusate Sodium 100 MG CAP PO (20:00)
[2024-01-03] MEDS: traZODone 100 MG TAB 200 MG PO (20:00)
[2024-01-03] MEDS: QUEtiapine 50 MG TAB PO (20:01)
[2024-01-03] MEDS: Senna TAB 1 TAB PO (20:01)
[2024-01-03] MEDS: Pantoprazole 40 MG VIAL IVP (20:16)
[2024-01-03] MEDS: Patch Removal LIDOCAINE 1 EACH TP (23:59)
[2024-01-04] VITALS (49 sets, daily range): BP systolic 76–112; BP diastolic 47–87; PULSE 78–109; RESP 12–25; TEMP 36.2–37; O2SAT 90–100
[2024-01-04] MEDS: Normal Saline Flush 10 ML SYR IVP ×4 (01:08→14:40)
[2024-01-04 01:23] LABS: Vancomycin, Trough 19.4 ug/mL (10.0-20.0)
[2024-01-04] MEDS: VANCOMYCIN/WATER (PEG) 1 GM/200 ML BAG IVPB (02:02)
[2024-01-04] MEDS: CEFEPIME 1 GM in Normal Saline 50 ML IVPB (03:55)
[2024-01-04] MEDS: Calcitonin-Salmon, Synthetic 3.7 ML BTL NS (07:34)
[2024-01-04] MEDS: Fluticasone NASAL SPRAY 16 GM BTL NS ×2 (07:34→22:23)
[2024-01-04] MEDS: Polyethylene Glycol 3350 17 GM PACKET PO (07:35)
[2024-01-04] MEDS: medroxyPROGESTERone 5 MG TAB 2.5 MG PO (07:35)
[2024-01-04] MEDS: DULoxetine 30 MG CAP 60 MG PO (07:36)
[2024-01-04] MEDS: Cholecalciferol (Vitamin D3) 400 UNIT TAB 800 UNIT PO (07:36)
[2024-01-04] MEDS: DULoxetine 30 MG CAP PO (07:36)
[2024-01-04] MEDS: Cyanocobalamin 500 MCG TAB PO (07:36)
[2024-01-04] MEDS: Potassium Chloride 20 MEQ TABCR PO ×3 (07:36→22:02)
[2024-01-04] MEDS: Acetaminophen 500 MG TAB 1000 MG PO ×3 (07:37→22:04)
[2024-01-04] MEDS: Gabapentin 100 MG CAP 200 MG PO ×3 (07:37→22:01)
[2024-01-04] MEDS: Midodrine 2.5 MG TAB 5 MG PO ×3 (07:37→22:06)
[2024-01-04] MEDS: Ferrous Sulfate 325 MG TAB PO ×3 (07:37→22:02)
[2024-01-04] MEDS: Sucralfate 1 GM TAB PO ×4 (07:38→22:02)
[2024-01-04 08:27] LABS: Lab Add On Test DONE
--- NOTE | 2024-01-04 09:47 | PDOC.CMPRO ---
Date of service: 01/04/24 Time of Service: 09:47 Care Management Progress Note Progress Note Text Progress Note Text: S/O: Elvi was transferred to med/surge today, per MD she is improving, but not yet medically cleared. Elvi was sitting up in bed when CM met with her. She stated that she is doing a little better today, but that overall her recovery from surgery has been difficult. CM informed her that she has received a bed offer from the [facility] in [place]. She reported that she has been there before and is happy to return. CM communicated this with admissions at the [facility]. CM will continue to follow. A: Elvi is an 83 year old woman admitted on 12/31/23 with a fractured hip P: Anticipate Elvi will be transferred to a SNF when medically ready for discharge. She will follow up with the facility providers and plan of care. Transportation will be via facility van or RCT. CM will follow and continue to assess for discharge needs. SDOH(Care Management) Screening Will the Patient Participate in the Screening?: Unable to obtain
[2024-01-04] MEDS: Lidocaine 5% Patch 2 PATCH TP (11:01)
--- NOTE | 2024-01-04 11:55 | W.PM.PROGNOT ---
Date of Service Date of service: 01/04/24 Time of Service: 11:55 Assessment and Plan Assessment and plan (1) Hypotension: Status: Resolved Assessment and plan: SBP remain on the lower side but her MAP is adequate and she is making good urine and her menal status is normal. I did order cortisol level to look for AI. She is now on midodrine and TEDS. I could add fludrocortisone. I think her hypotension was initially d/t sepsis as she was shocky and has Enterococcal UTI. Unfortunately her blood cultures were canceelled when she firt became symptomatic post operatively. Her UTI was recognized preop and she as on Ceftriaxone but unfortunately she had Enterococcus and initially she was changed to cefepime and vancomycin but her vancomycin got stopped by the inside sales associate. I did put her back on vancomycin but now the sensitivities have come back and we can de-escalate to ampicillin. her blood cultures have come back negative and she has had two normal procalcitonin, so I think that we may be able to stop antibiotics after couple days. She has completed 3 days of vancomycin. Qualifiers: Hypotension type: hypotension due to hypovolemia Qualified Code(s): E86.1 - Hypovolemia (2) Acute UTI: Status: Acute Assessment and plan: renal US negative for pyelonephritis or obstruction. She still has cortes in place. I will keep cortes in for at least another day as she still is not moving well out of bed. (3) Elevated troponin I level: Status: Acute Assessment and plan: troponin I level peaked at 160 and has come down to 82, no ischemic EKG changes; normal LV and RV function on her echocardiogram. This apparently was demand ischemia type II d/t her sepsis and hypotension. No further workup planned at this time. Monitor for any symptoms. (4) Anemia: Status: Chronic Assessment and plan: anemia of chronic disease. her iron studies were not consistent w/ iron deficiency and her B12 and folate were normal. will monitor. Nevertheless she has been on iron supplements as outpatient and were continued on admission. Qualifiers: Anemia type: other cause Qualified Code(s): D63.8 - Anemia in other chronic diseases classified elsewhere (5) Intertrochanteric fracture of left femur: Status: Acute Assessment and plan: POD #3 left hip s/p IM fixation; P.T. able to work on transfers today. She is going to require SNF upon discharge. 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 encourage use of IS, mobilize her, support w/ NC oxygen. Currently on oxygen at 1 lpm NC Qualifiers: Chronicity: chronic Qualified Code(s): J96.11 - Chronic respiratory failure with hypoxia (7) NSIP (nonspecific interstitial pneumonia): (8) Constipation: Status: Acute Qualifiers: Constipation type: drug induced constipation Qualified Code(s): K59.03 - Drug induced constipation Subjective Subjective Interval history since last seen: Elvi reportedly has been more comfortable since the change in her narcotic analgesic was made yesterday. She was put on MS Contin 45 mg q12h and her gabapentin was increased to 200 mg tid. I have not used ketorolac d/t her having sepsis and hypotension postoperatively and concern for her renal function. Her renal function has recovered and she is now off norepinephrine since yesterday. I think we can add some low dose ketorolac prn for her hip pain. She still has significant pain w/ bed to chair transfers but was able to perform this for P.T. this morning w/ assist of two people. Per CM she has a bed offer for SNF at Exam Narrative Exam Narrative: Elvi is alert and oriented, currently in some pain just having transferred out of bed to her chair. Lungs: clear Heart: RRR Abdomen: soft,nontender, no distension Extremities: no edema Cortes: clear yellow urine Objective Last Vital Signs Temp 36.3 C L 01/04/24 09:02 Pulse 90 01/04/24 07:23 Resp 15 01/04/24 07:23 BP 93/54 L 01/04/24 07:23 Pulse Ox 98 01/04/24 07:23 Laboratory Results - last 24 hr 01/04/24 01/04/24 01:04 08:25 Vancomycin Trough 19.4 Add-On Test Request DONE Time Spent with Patient Time Spent with Patient: 35-49 minutes Time was spent: preparing to see the patient(eg.review tests), ordering medications,tests, procedures, referring, communicating with other health career development consultant (Dr. Lucia, nursing, CM), indepentently interpreting results, counseling the patient and care coordination
--- NOTE | 2024-01-04 12:06 | PT.INTREAT ---
PT Notes Visit Reasons: Left Hip Fracture Inpatient Physical Therapy Treatment Note [facility] Date: 01/04/24 SUBJECTIVE: Elvi states that she is afraid to get up. She is relatively comfortable in bed. Expresses concern about a popping sensation she feels in her hip with any mvmt. OBJECTIVE: []? VITALS: ?[place] [facility] [place]rapeutic Activities (41596h4): Direct one-on-one instruction in dynamic activities to improve functional performance. ? BED MOBILITY/TRANSFERS? Supine-sit: mod/max Ax2 ? Sit-stand: Max Ax2 ? Stand-sit:min A x2? Bed-Chair: Max Ax2 ? Provided skilled cues and instruction on performance and technique throughout ? GAIT? Assistive Device: FWW? Weight bearing: AT left Assist:max A x2 ? Distance:? pivot xfer? Deviation: consistent cues for hand placements and turning feet.? Therapeutic Exercises (90973t6): Direct one-on-one instruction in therapeutic exercises to develop strength, endurance, range of motion and flexibility. ? Exercises ?GS, QS, x10 each. AP and AAROM hip flex and ab/add x5ea ASSESSMENT:tolerated fair. Very anxious and fearful of falling. Fear of increasing pain. Does better with slower mvmt. PLAN: continue to work on strength and functional mobility to tolerance. TREATMENT CODE/TIME: 30 min [id number], [id number]
[2024-01-04] MEDS: Methylnaltrexone 12 MG/0.6 ML VIAL SC (13:08)
[2024-01-04] MEDS: Ketorolac 15 MG/ML VIAL IVP ×2 (13:11→22:07)
[2024-01-04] MEDS: Senna TAB 1 TAB PO (13:11)
[2024-01-04] MEDS: Psyllium PKT 1 EACH PO (13:11)
[2024-01-04] MEDS: AMPICILLIN SODIUM 2 GM in Normal Saline 100 ML IVPB ×3 (14:39→22:23)
[2024-01-04 15:36] LABS: Abs Immature Grans 0.05 10^3/uL (0.0-0.06); Absolute Basophil Count 0.01 10^3/uL (0.0-0.2); Absolute Eosinophil Count 0.34 10^3/uL (0.0-0.7); Absolute Lymphocyte Count 0.64 10^3/uL (1.2-3.4); Absolute Monocyte Count 0.77 10^3/uL (0.1-0.8); Absolute Neutrophil Count 3.58 10^3/uL (1.2-6.7); Basophils % 0.2 %; Eosinophils % 6.3 %; HGB 8.5 g/dL (11.2-15.7); Immature Grans % 0.9 %; Lymphocytes % 11.9 %; MCH 33.7 pg (27.0-33.0); MCHC 31.5 % (32.0-36.0); MCV 107 fL (80-95); MPV 9.4 fL (8.0-11.0); Monocytes % 14.3 %; Neutrophils % 66.4 %; Platelet Count 166 10^3/uL (130-400); RBC 2.52 10^6/uL (3.93-5.22); RDW 16.6 % (11.7-14.6); RDW-SD 64.9 fL; WBC 5.39 10^3/uL (4.4-10.8)
--- NOTE | 2024-01-04 15:42 | PT.INNT ---
PT Notes Visit Reasons: Left Hip Fracture Patient needed to sleep and rest from what she said was a tiresome transfer from chair onto bed ese. She also worked with PT to transfer from bed to chair and is still tired from doing that. She prefers being seen by physical therapy once a day as twice is too much at this time, patient verbalizes she will make a decision tomorrow.
[2024-01-04] MEDS: Bisacodyl 10 MG SUPP PR (16:01)
[2024-01-04 16:16] LABS: Anion Gap 5.9 mmol/L (3-11); BUN 14 mg/dL (7-18); CO2 26.1 mmol/L (21.0-32.0); CREATININE 0.6 mg/dL (0.55-1.02); Calcium 7.9 mg/dL (8.5-10.1); Chloride 104 mmol/L (98-107); Estimated GFR 89.01 (mL/min/1.73m2); Glucose 121 mg/dL (74-106); Sodium 136 mmol/L (136-145)
[2024-01-04] MEDS: QUEtiapine 50 MG TAB PO (22:03)
[2024-01-04] MEDS: traZODone 100 MG TAB 200 MG PO (22:03)
[2024-01-05] MEDS: Patch Removal LIDOCAINE 1 EACH TP (01:00)
[2024-01-05] MEDS: Normal Saline Flush 10 ML SYR IVP ×2 (01:26→08:48)
[2024-01-05] MEDS: AMPICILLIN SODIUM 2 GM in Normal Saline 100 ML IVPB ×3 (01:26→09:26)
[2024-01-05 06:31] LABS: Abs Immature Grans 0.04 10^3/uL (0.0-0.06); Absolute Basophil Count 0.01 10^3/uL (0.0-0.2); Absolute Eosinophil Count 0.37 10^3/uL (0.0-0.7); Absolute Lymphocyte Count 0.89 10^3/uL (1.2-3.4); Absolute Monocyte Count 0.66 10^3/uL (0.1-0.8); Absolute Neutrophil Count 2.11 10^3/uL (1.2-6.7); Basophils % 0.2 %; Eosinophils % 9.1 %; HCT 23.7 % (36.0-46.0); HGB 7.6 g/dL (11.2-15.7); Lymphocytes % 21.8 %; MCH 34.5 pg (27.0-33.0); MCHC 32.1 % (32.0-36.0); MPV 9.6 fL (8.0-11.0); Monocytes % 16.2 %; Neutrophils % 51.7 %; Platelet Count 170 10^3/uL (130-400); RDW 16.2 % (11.7-14.6); RDW-SD 64.1 fL; WBC 4.08 10^3/uL (4.4-10.8)
[2024-01-05 06:37] LABS: MCV 108 fL (80-95)
[2024-01-05 06:59] LABS: Anion Gap 4.4 mmol/L (3-11); BUN 12 mg/dL (7-18); CO2 26.6 mmol/L (21.0-32.0); CREATININE 0.5 mg/dL (0.55-1.02); Calcium 7.9 mg/dL (8.5-10.1); Chloride 107 mmol/L (98-107); Glucose 89 mg/dL (74-106); Potassium 4.9 mmol/L (3.5-5.1); Sodium 138 mmol/L (136-145)
[2024-01-05 07:34] VITALS: BP 85/49; PULSE 98; RESP 15; TEMP 37; O2SAT 95
[2024-01-05 07:43] VITALS: BP 96/50
[2024-01-05] MEDS: Calcitonin-Salmon, Synthetic 3.7 ML BTL NS (08:45)
[2024-01-05] MEDS: Fluticasone NASAL SPRAY 16 GM BTL NS (08:45)
[2024-01-05] MEDS: Ferrous Sulfate 325 MG TAB PO (08:46)
[2024-01-05] MEDS: Senna TAB 1 TAB PO (08:46)
[2024-01-05] MEDS: Acetaminophen 500 MG TAB 1000 MG PO (08:46)
[2024-01-05] MEDS: Midodrine 2.5 MG TAB 5 MG PO (08:46)
[2024-01-05] MEDS: DULoxetine 30 MG CAP 60 MG PO (08:46)
[2024-01-05] MEDS: Cyanocobalamin 500 MCG TAB PO (08:46)
[2024-01-05] MEDS: DULoxetine 30 MG CAP PO (08:47)
[2024-01-05] MEDS: Sucralfate 1 GM TAB PO (08:47)
[2024-01-05] MEDS: Potassium Chloride 20 MEQ TABCR PO (08:47)
[2024-01-05] MEDS: medroxyPROGESTERone 5 MG TAB 2.5 MG PO (08:47)
[2024-01-05] MEDS: Gabapentin 100 MG CAP 200 MG PO (08:47)
[2024-01-05] MEDS: Ketorolac 15 MG/ML VIAL IVP (08:47)
[2024-01-05] MEDS: Pantoprazole 40 MG TABCR PO (08:47)
[2024-01-05] MEDS: Cholecalciferol (Vitamin D3) 400 UNIT TAB 800 UNIT PO (08:47)
[2024-01-05] MEDS: Psyllium PKT 1 EACH PO (08:48)
--- NOTE | 2024-01-05 09:02 | DSE_ITS ---
Date of service: 01/05/24 Time of Service: 09:24 DS: Diagnosis Discharge Diagnosis (1) Hypotension: Status: Resolved Asessment and Plan: -Patient developed hypotension postoperatively initially thought to be blood loss anemia -Hemoglobin did decrease postoperatively for which she was given blood transfusion -However, it was also thought that may be secondary to septic shock as patient was found to have Enterococcus urinary tract infection -She was on vancomycin for 3 days then transition to ampicillin -This has been changed to continuation of amoxicillin for additional 4 days -Additionally, she is on midodrine which will be continued (2) Acute UTI: Status: Acute Asessment and Plan: -as noted above (3) Elevated troponin I level: Status: Acute Asessment and Plan: troponin I level peaked at 160 and has come down to 82, no ischemic EKG changes; normal LV and RV function on her echocardiogram. This apparently was demand ischemia type II d/t her sepsis and hypotension. No further workup planned at this time. Monitor for any symptoms. (4) Anemia: Status: Chronic Asessment and Plan: anemia of chronic disease. her iron studies were not consistent w/ iron deficiency and her B12 and folate were normal. will monitor. Nevertheless she has been on iron supplements as outpatient and were continued on admission. (5) Intertrochanteric fracture of left femur: Status: Acute Asessment and Plan: -POD #4 -PT rec SNF (6) Respiratory failure with hypoxia: Status: Acute (7) NSIP (nonspecific interstitial pneumonia): (8) Constipation: Status: Acute Discharge Plan Disposition Patient Disposition: [facility] Facility(SNF) Condition: Good Discharge Details Reason For Visit: Left Hip Fracture Admit Date/Time: 12/31/23 16:12 Admit Provider: Bridger Vicente Attending Provider: Bridger Vicente Primary Care Provider: GibranIesha Layton Hospital Course Hospital Course: Patient initially presented with left hip fracture for which she had IM fixation on 01/01/2024. However, postoperatively she became hypotensive which was initially thought to be potentially due to blood loss anemia however was determined to be secondary to Enterococcus UTI and septic shock. However she did receive 1 unit of packed red blood cells for hemoglobin of 7.7, and did require Levophed drip which has since been weaned and discontinued. However, the patient does remain on midodrine. She was also on 3 days of vancomycin which was switched to ampicillin based on culture sensitivities. Given that hypotension has resolved, patient is on adequate antibiotics, and hip fracture has been surgically repaired was determined that she was stable for discharge to subacute rehab. Home Meds and New Rx's Prescriptions: New gabapentin 100 mg Capsule 200 mg PO TID Qty: 90 0RF hydromorphone 2 mg Tablet 2 mg PO Q4H PRN PRNQty: 10 0RF midodrine 2.5 mg Tablet 5 mg PO TID Qty: 90 0RF amoxicillin 875 mg tablet 875 mg PO BID Qty: 8 0RF Continued Balanced B-100 Complex 100 mg tablet extended release PO biotin 1 mg capsule 1 mg PO DAILY lutein 6 mg capsule 6 mg PO DAILY Rx Instructions: give with meal/snack vitamin A 2,400 mcg capsule 2,400 mcg PO DAILY ginkgo biloba 40 mg tablet 40 mg PO DAILY Rx Instructions: give with meal/snack magnesium 250 mg tablet 500 mg PO DAILY zinc acetate 25 mg (zinc) capsule 25 mg PO DAILY vitamin E (dl, acetate) 45 mg (100 unit) capsule 45 mg PO DAILY ferrous sulfate 325 MG tablet 325 mg PO TID cholecalciferol (vitamin D3) [Vitamin D3] 400 UNIT tablet 800 unit PO DAILY glucosamine sulfate 2KCl 1,000 MG tablet 500 mg PO BID ascorbic acid (vitamin C) 1,000 MG tablet 4,000 mg PO DAILY duloxetine [Cymbalta] 60 MG capsule,delayed release(DR/EC) 60 mg PO DAILY Rx Instructions: TAKES IN ADDITION TO A 30 MG CAP FOR A TOTAL OF 90 MG PO DAILY medroxyprogesterone [Provera] 2.5 MG tablet 2.5 mg PO DAILY quetiapine 50 mg tablet 50 mg PO QPM Patient Comments: TAKE ONE TABLET BY MOUTH EVERY EVENING duloxetine 30 mg capsule,delayed release(DR/EC) 30 mg PO DAILY Patient Comments: TAKE ONE CAPSULE BY MOUTH EVERY DAY WITH 60MG Rx Instructions: TAKES IN ADDITION TO A 60 MG CAP FOR A TOTAL OF 90 MG PO DAILY trazodone 100 mg tablet 200 mg PO HS Patient Comments: TAKE 2 TABLETS BY MOUTH EVERY NIGHT albuterol sulfate [Ventolin HFA] 90 mcg/actuation Hfa Aerosol Inhaler 2 puff inhalation Q4H PRN PRNQty: 0 0RF esomeprazole magnesium [Nexium] 40 mg Capsule,Delayed Release(Dr/Ec) 40 mg PO DAILY@0730 Qty: 0 0RF calcitonin (salmon) 200 unit/actuation [place],Non-Aerosol 1 spray NS DAILY Qty: 3.7 0RF cyanocobalamin (vitamin B-12) [Vitamin B-12] 500 mcg Tablet 500 mcg PO DAILY Qty: 30 0RF cyclosporine 0.05 % Dropperette 8 drp OU BID Qty: 30 0RF sucralfate 1 gram Tablet 1 g PO AC & HS Qty: 120 0RF hydrocodone-acetaminophen 5-325 mg tablet 1 tab PO Q6H PRNQty: 20 0RF potassium chloride 20 MEQ tablet,ER particles/crystals 20 meq PO TID Rx Instructions: 20 MG PO TID DIRECTED fluticasone propionate 50 mcg/actuation spray,suspension 0 spray INTRANASAL BID Patient Comments: SPRAY ONE SPRAY IN EACH NOSTRIL TWICE A DAY Rx Instructions: ONE SPRAY EACH NOSTRIL BID No Action gabapentin 100 mg Capsule 100 mg PO TID Qty: 90 0RF Discharge Instructions Activity:: Activity as Tolerated Equipment/Supplies:: No Equipment Needed Diet:: As Tolerated Discharge Orders Discharge Orders: Discharge Order (Routine); Ordered 01/05/24 Ordered By: Stefan Montilla DS: Summary Time Spent with Patient providing and/or coordinating discharge services: Greater than 30 minutes Status at Discharge Functional status at discharge: independent ambulation Overall status at discharge: patient is back to baseline Mental Status: mental status grossly normal Speech and Movement: speech and movement normal Mood: congruent mood Affect: normal affect Quality:SDOH Health Related Social Needs: No Data to Display Exam Narrative Exam Narrative: Well-appearing older female laying in bed in no acute distress, ANO x 4, heart regular rhythm, lungs clear to auscultation bilaterally, abdomen soft, nontender, nondistended, surgical wound without any signs of erythema or drainage Psych Mental Status: mental status grossly normal Speech and Movement: speech and movement normal Mood: congruent mood Affect: normal affect DS: Data Vitals/I&O Vitals and I&O: Vital Signs Temperature 98.6 F 01/05/24 07:34 Temperature Source Tympanic 01/05/24 07:34 Pulse 98 H 01/05/24 07:34 Pulse Rhythm Regular 01/04/24 23:15 Pulse 101 H 01/04/24 12:16 Respiratory Rate 15 01/05/24 07:34 Respiratory Effort Non-Labored 01/04/24 23:15 Respiratory Depth Shallow 01/04/24 23:15 Respiratory Pattern Normal 01/04/24 23:15 Blood Pressure 96/50 L 01/05/24 07:43 Blood Pressure Mean 78 01/04/24 12:16 Blood Pressure Position Supine 01/04/24 09:02 Pulse Oximetry 95 01/05/24 07:34 Respiratory End-tidal CO2 33 01/01/24 14:35 Oxygen Delivery Method Nasal Cannula 01/05/24 07:34 Oxygen Flow Rate 1 01/05/24 07:34 Pain Level 10 01/05/24 08:47 Comment BP called over radio; will inform RN; RN informed 01/04/24 15:02 Intake & Output 01/04/24 01/05/24 01/05/24 17:59 05:59 17:59 Intake Total 590 / 590 900 / 1490 100 / 100 Output Total 300 / 300 1750 / 2050 Balance 290 / 290 -850 / -560 100 / 100 Intake: IV 100 / 100 300 / 400 100 / 100 Oral 490 / 490 600 / 1090 Output: Urine 300 / 300 1750 / 2050 Other: Urine Color Yellow Yellow Urine Appearance Clear Clear Comment Indwelling cortes with clear yellow urine in collection bag. Stool Size Large Stool Characteristics Soft Data Completed and Pending Labs on day of discharge: Labs from last 24 hours 01/05/24 01/04/24 01/04/24 05:50 15:00 01:04 WBC 4.08 L 5.39 RBC 2.20 L 2.52 L Hgb 7.6 L 8.5 L Hct 23.7 L 27.0 L MCV 108 H 107 H MCH 34.5 H 33.7 H MCHC 32.1 31.5 L RDW 16.2 H 16.6 H Plt Count 170 166 MPV 9.6 9.4 Immature Gran % 1.0 0.9 Neutrophils % 51.7 66.4 Lymphocytes % 21.8 11.9 Monocytes % 16.2 14.3 Eosinophils % 9.1 6.3 Basophils % 0.2 0.2 Nucleated RBC % 0.0 0.0 Absolute Neutrophils 2.11 3.58 Absolute Lymphocytes 0.89 L 0.64 L Absolute Monocytes 0.66 0.77 Absolute Eosinophils 0.37 0.34 Absolute Basophils 0.01 0.01 Sodium 138 136 Potassium 4.9 5.0 Chloride 107 104 Carbon Dioxide 26.6 26.1 Anion Gap 4.4 5.9 BUN 12 14 Creatinine 0.5 L 0.6 Est GFR (CKD-EPI 2020) 93.00 89.01 Glucose 89 121 H Calcium 7.9 L 7.9 L Cortisol 4 Preliminary micro results at discharge 01/02/24 09:50 Blood Culture - Preliminary Blood NO GROWTH 48 HOURS 01/02/24 10:00 Blood Culture - Preliminary Blood NO GROWTH 48 HOURS 01/03/24 09:10 Blood Culture - Preliminary Blood NO GROWTH 24 HOURS 01/03/24 09:10 Blood Culture - Preliminary Blood NO GROWTH 24 HOURS PFSH All Active Problems (Updated 01/05/24 @ 09:02 by Stefan Montilla MD) Constipation (Acute) Elevated troponin I level (Acute) Respiratory failure with hypoxia (Acute) Intertrochanteric fracture of left femur (Acute) Discharge planning issues (Acute) On deep vein thrombosis (DVT) prophylaxis (Acute) Elevated CK (Acute) Closed fracture of left hip (Acute) Acute UTI (Acute) Skin ulcer (Acute) Palliative care patient (Acute) Palliative care encounter (Acute) DNR (do not resuscitate) (Acute) Chronic pain (Chronic) E. 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 fell down and could not get up Hypertension (Chronic) with labile blood pressure. Morbid obesity (Chronic) Allergic rhinitis (Chronic) Hyperlipidemia (Chronic) History of anemia (Chronic) Fibromyalgia (Chronic) DJD (degenerative joint disease) (Chronic) Chronic depression (Chronic) Insomnia (Chronic) Gastroesophageal reflux disease (Chronic) Hiatal hernia (Chronic) Irritable bowel syndrome (Chronic) History of surgery (Chronic) a. S/P open right ankle fracture/dislocation. b. Left knee arthroscopy. c. Right wrist fracture repair. d. T/A as a child. Dehydration, mild (Acute 09/22/14) Housing or economic circumstance (Chronic 09/22/14) a. No heat for 1-1/2 days H/O fall (Chronic) Anemia (Chronic) Alcohol withdrawal delirium (Acute 09/22/14) Rhabdomyolysis (Acute 09/22/14) Ataxia (Chronic) Onychomycosis (Chronic) Depression (Chronic) Medical History Frequent falls Alcohol withdrawal NSIP (nonspecific interstitial pneumonia) Fracture of right inferior pubic ramus Fracture of right superior pubic ramus ACP (advance care planning) Alcohol use disorder Laceration of skin of right forearm Skin ulcer of lower leg DVT prophylaxis Interstitial lung disease Laceration of arm, right, complicated Fractured pelvis T12 compression fracture Acute exacerbation of chronic low back pain Fall Alcohol dependence Person living alone (09/22/14) Hiatal hernia IBS (irritable bowel syndrome) Hypertension Allergic rhinitis GERD (gastroesophageal reflux disease) DJD (degenerative joint disease) Hyperlipidemia Hypercholesterolemia Fibromyalgia Depression Anemia Alcohol abuse Insomnia Surgical History Tonsillectomy and adenoidectomy Repair fracture right wrist ORIF right ankle Colonoscopy - MAC (11/18/16) Arthroplasty of knee left Family History Mother Dementia Maternal Aunt Diabetes Social History Smoking/Tobacco Use Status: Former Tobacco Use Smoking risk assessment performed?: Yes Alcohol Intake: current Alcohol Intake frequency: 0-2 drinks per day Alcohol type: wine Counseling given: Yes Details: 1-2 bottle of wine/day Drug use: Daily Substance use type: does not use and marijuana Details: two tokes for sleep Housing: house Do you feel safe at home: Yes Do you feel safe in your relationship?: Yes Additional Social history: Lives alone in home in [place], has a cat. States hasn't been out of house for a year. One sister in [place] Time Spent with Patient Time Spent with Patient: <45 minutes Time was spent: preparing to see the patient(eg.review tests), obtaining and/or reviewing separately otained hiistory, ordering medications,tests, procedures, referring, communicating with other health home health care case manager, indepentently interpreting results, counseling the patient and care coordination
[2024-01-05 10:06] VITALS: RESP 18; O2SAT 93
[2024-01-05] MEDS: Bacitracin 1 PACKET (10:35)
--- NOTE | 2024-01-05 11:07 | PT.INTREAT ---
PT Notes Visit Reasons: Left Hip Fracture Date: 01/05/24 SUBJECTIVE: pt in bed when approached for therapy this morning, pt refused initial attempt at getting pt out of bed, requested to be seen later at around 10:30am, pt Being DC'd before lunch and agreed to transferring to for the transport to the [facility]. OBJECTIVE: ? VITALS: [place] [facility] [place] Therapeutic Activities ([id number]): Direct one-on-one instruction in dynamic activities to improve functional performance. ? BED MOBILITY/TRANSFERS? Supine-sit: mod a +1 ? Sit-stand: max a+1 ? Stand-sit: max a+1? Bed-WC: Max a+1? Provided skilled cues and instruction on performance and technique throughout ? GAIT? Assistive Device: FWW? Weight bearing: WBAT left Assist: max a+1 ? Distance:? Stand pivot transfer ? Deviation: antalgic, requiring constant encouragement for continuity with turning ? Therapeutic Exercises 54822: Direct one-on-one instruction in therapeutic exercises to develop strength, endurance, range of motion and flexibility. Exercises: GS, QS, x10 each. AP and AAROM hip flex and ab/add x5ea ? Provided skilled instruction in proper exercise performance Provided skilled manual cues to facilitate proper muscle recruitment and/or form: ASSESSMENT: Pt very anxious, able to complete turn given enough time to allow for very slow incremental movement. TREATMENT CODE/TIME: [id number], [id number] 30mins (10:30-11:00am)
--- NOTE | 2024-01-05 17:30 | CMDISCH_ITS ---
Date of service: 01/05/24 Time of Service: 17:30 LACE Index Scoring Tool Questions: Length of Stay (in days): 4 - 6 Was the patient admitted via the E.D.?: Yes E.D. Visits: 1 Answers: Total Score: 8 Risk of Readmission: Low Risk Care Management Discharge Plan Reason for Hospitalization: hip fracture Discharge Plan: Elvi transferred to the [facility] for short term rehab. She was transported via [facility] w[facility] van, coordinated by FEDERICO LUGO. She will follow up with her PCP and discharge plan of care. She was happy to be going to the [facility]. Patient/Family Education Needs: Review discharge instructions and limitations, discussion of self care needs including ask me three. Services Needed at Discharge: Correction Facility ([facility]) and Transportation ([facility] w[facility] van) SDOH Health Related Social Needs: No Data to Display
== END 2024-01-05 10:57 | disposition skilled nursing facility (03) | DRG 480 ==
LOC: ER 16:33 → ICU 19:15 → MS 01-04 12:38
PROVIDERS: Family Medicine; Nurse Practitioner Acute Care; Nurse Practitioner Family; Student in an Organized Health Care Education/Training Program; Admitting Provider Internal Medicine; Emergency Provider Physician Assistant; PCP Family Medicine; Visit Provider Internal Medicine
PROC: 0QS706Z Reposition Left Upper Femur with Intramedullary Internal Fixation Device, Open Approach (ICD-10-PCS; CPT 27245; principal; 2024-01-01 12:00)
DX: S72.142A Displaced intertrochanteric fracture of left femur, initial encounter for closed fracture (principal); A41.9 Sepsis, unspecified organism; J96.01 Acute respiratory failure with hypoxia; R65.21 Severe sepsis with septic shock; N39.0 Urinary tract infection, site not specified; J84.9 Interstitial pulmonary disease, unspecified; F10.239 Alcohol dependence with withdrawal, unspecified; L97.319 Non-pressure chronic ulcer of right ankle with unspecified severity; L97.829 Non-pressure chronic ulcer of other part of left lower leg with unspecified severity; I24.89 Other forms of acute ischemic heart disease; R74.8 Abnormal levels of other serum enzymes; I10 Essential (primary) hypertension; E78.5 Hyperlipidemia, unspecified; M79.7 Fibromyalgia; J44.9 Chronic obstructive pulmonary disease, unspecified; D63.8 Anemia in other chronic diseases classified elsewhere; Z66 Do not resuscitate; B96.20 Unspecified Escherichia coli [E. coli] as the cause of diseases classified elsewhere; W18.39XA Other fall on same level, initial encounter; Z79.891 Long term (current) use of opiate analgesic; K21.9 Gastro-esophageal reflux disease without esophagitis; K44.9 Diaphragmatic hernia without obstruction or gangrene; E66.01 Morbid (severe) obesity due to excess calories; M17.12 Unilateral primary osteoarthritis, left knee; E86.0 Dehydration; F32.A Depression, unspecified; R29.6 Repeated falls; B35.1 Tinea unguium; G47.00 Insomnia, unspecified; B95.2 Enterococcus as the cause of diseases classified elsewhere; K59.03 Drug induced constipation; K58.9 Irritable bowel syndrome, unspecified
CPT/HCPCS: 27245; 36556; 76937; 00123; 36410; 36415; 36416; 36591; 51702; 73552; 76604; 76770; 80048; 80053; 82533; 82550; 82805; 84145; 85027; 86850; 86900; 86901; 86920; 87040; 87077; 87641; 93306; 93308; 96361; 96365; 96375; 96376; 97110; 97163; 97530; 99222; 99285; 99291; 71045; 73501; 73502; 80202; 81003; 81015; 83605; 83735; 84484; 85014; 85018; 85025; 85610; 85730; 87086; 87186; 93005; 93010; 99223; 99232; 99233; 99238; J0290; J0690; J0692; J0696; J1100; J1644; J1885; J2001; J2212; J2270; J2371; J2401; J2405; J2470; J2560; J2704; J3010; J3105; J3370; J3372; J3490; P9016

== ENCOUNTER → 2024-01-02 08:37 | Outpatient (BNVA) | payer MEDICARE, MEDICAID, SELFPAY | PROVIDERS: PCP Family Medicine; Referring Provider Family Medicine; Visit Provider Student in an Organized Health Care Education/Training Program ==

== ENCOUNTER 2024-01-09 17:59 | Outpatient (REF) | payer SELFPAY ==
[2024-01-09 18:52] LABS: Absolute Basophil Count 0.02 10^3/uL (0.0-0.2); Absolute Eosinophil Count 0.32 10^3/uL (0.0-0.7); Absolute Monocyte Count 0.89 10^3/uL (0.1-0.8); Absolute Neutrophil Count 3.53 10^3/uL (1.2-6.7); Basophils % 0.3 %; Eosinophils % 5.4 %; HCT 27.6 % (36.0-46.0); HGB 8.6 g/dL (11.2-15.7); Immature Grans % 1.7 %; Lymphocytes % 18.5 %; MCH 33.7 pg (27.0-33.0); MCHC 31.2 % (32.0-36.0); MPV 9.9 fL (8.0-11.0); Monocytes % 14.9 %; Neutrophils % 59.2 %; Platelet Count 389 10^3/uL (130-400); RBC 2.55 10^6/uL (3.93-5.22); RDW 16.1 % (11.7-14.6); RDW-SD 63.5 fL; WBC 5.96 10^3/uL (4.4-10.8)
[2024-01-09 19:04] LABS: Iron 19 ug/dL (50-170); Total Iron Binding Capacity 69 ug/dL (250-450); Transferrin Sat 28 % (15-50)
[2024-01-09 19:11] LABS: Hemoglobin A1C 4.7 % (<5.7)
[2024-01-09 19:13] LABS: Diff Comment RBC Morph Reviewed
[2024-01-09 19:15] LABS: MCV 108 fL (80-95); Macrocytosis 2+
[2024-01-09 19:30] LABS: Vitamin D 25 Total 58.1 ng/mL (30-100)
[2024-01-09 19:40] LABS: ALT 16 U/L (14-59); AST 21 U/L (15-37); Albumin 1.7 g/dL (3.4-5.0); Alkaline Phosphatase 116 U/L (46-116); BUN 11 mg/dL (7-18); Bilirubin, Total 0.4 mg/dL (0.2-1.0); CREATININE 0.5 mg/dL (0.55-1.02); Calcium 7.8 mg/dL (8.5-10.1); Chloride 104 mmol/L (98-107); Glucose 102 mg/dL (74-106); Magnesium 1.6 mg/dL (1.8-2.4); Potassium 4.3 mmol/L (3.5-5.1); Sodium 139 mmol/L (136-145); TSH (W/Ref FT4) 3.04 uIU/mL (0.36-3.74); Total Protein 4.6 g/dL (6.4-8.2); Vitamin B12 917 pg/mL (193-986)
[2024-01-09 19:41] LABS: Ferritin 1536 ng/mL (8-252)
== END 2024-01-09 18:00 | disposition home or self-care (01) ==
LOC: LBN 17:59
PROVIDERS: PCP Family Medicine; Visit Provider Nurse Practitioner Gerontology
DX: D52.9 Folate deficiency anemia, unspecified (principal); Z00.01 Encounter for general adult medical examination with abnormal findings; R53.82 Chronic fatigue, unspecified; E87.6 Hypokalemia; J84.9 Interstitial pulmonary disease, unspecified; D50.8 Other iron deficiency anemias; E78.5 Hyperlipidemia, unspecified; I95.9 Hypotension, unspecified; D51.9 Vitamin B12 deficiency anemia, unspecified; E73.9 Lactose intolerance, unspecified
CPT/HCPCS: 80053; 82306; 82607; 82728; 83036; 83540; 83550; 83735; 84443; 85025

== ENCOUNTER → 2024-02-05 15:26 | Outpatient (CLI) | payer MEDICARE, MEDICAID, SELFPAY ==
--- NOTE | 2024-02-05 11:30 | DI.RAD_ITS ---
Exam(s) XR HIP LT AP LAT ONLY EXAM: XR HIP LT AP LAT ONLY CLINICAL HISTORY: S72.142A , displaced Intertrochanteric FX of Lt Femur, S/P IM NAIL L FEMUR. TECHNIQUE: 2D digital imaging was performed. Two views. COMPARISON: CR XR FEMUR LT from 01/03/2024 FINDINGS: BONES: There has been no change in fracture or hardware alignment. Increase in fracture healing no n ew abnormalities. No bony destructive lesion is seen. JOINTS: No dislocation present. The hip joint space is maintained. SOFT TISSUE: Normal. IMPRESSION: Stable fracture and hardware alignment. DATA REPOSITORY: RADIATION DOSE DELIVERED:
== END ==
PROVIDERS: PCP Family Medicine; Visit Provider Physician Assistant
DX: S72.142D Displaced intertrochanteric fracture of left femur, subsequent encounter for closed fracture with routine healing (principal); X58.XXXD Exposure to other specified factors, subsequent encounter
CPT/HCPCS: 73502

== ENCOUNTER → 2024-02-19 03:07 | Outpatient (CLI) | payer MEDICARE, MEDICAID, SELFPAY ==
--- NOTE | 2024-02-19 06:39 | DI.CT_ITS ---
Exam(s) CT LOWER EXTREMITY LT WO EXAM: CT LOWER EXTREMITY LT WO CLINICAL HISTORY: PAIN, SURGICAL PLANNING,intertrochanteric fx lt femur,s72.142a. TECHNIQUE: Imaging Protocol: Axial computed tomography images with coronal and sagittal reformatted images were created and reviewed. COMPARISON: CR,XR XR HIP LT COMPLETE AP PELVIS from 12/31/2023 CR XR HIP LT AP LAT ONLY from 02/05/2024 FINDINGS: Bones: There is an intramedullary christen transfixing the intertrochanteric fracture of the left femur. The fracture line is still visualized on the examination. The bones are osteopenic. The patient hernandez s a prior left total knee replacement which is incompletely imaged. There are old fracture deformiti es of the right pubic bone. No lytic or sclerotic lesions are identified. Soft Tissues: There is marked muscle fatty atrophy present. There is a large amount of stool in the colon particularly the rectum which may represent fecal impaction/constipation. IMPRESSION: 1. There is an intertrochanteric fracture transfixed by an intramedullary christen. The fracture line is still visualized. 2. Marked muscle fatty atrophy in the left lower extremity. 3. Large amount of stool in the colon, particularly the rectum, which may represent fecal impaction/c onstipation. RADIATION DOSE DELIVERED: 601.14mGy.cm Total DLP 601.14mGy.cm Total DLP DATA REPOSITORY: All CT scans at this facility are submitted to the National Radiology Data Registry (NRDR) Dose Index Registry (DIR) with the [employer] (A[employer]). RADIATION OPTIMIZATION: All CT scans at this facility use at least one of these dose optimization te chniques: automated exposure control; mA and/or kV adjustment per patient size (includes targeted exa ms where dose is matched to clinical indication); or iterative reconstruction.
== END ==
PROVIDERS: PCP Family Medicine; Visit Provider Student in an Organized Health Care Education/Training Program
DX: S72.142A Displaced intertrochanteric fracture of left femur, initial encounter for closed fracture (principal)
CPT/HCPCS: 73700

== ENCOUNTER 2024-03-04 15:38 | Outpatient (CLI) | payer MEDICARE, MEDICAID, SELFPAY | END 2024-03-04 15:39 | disposition home or self-care (01) | LOC: DIORS 15:39 | PROVIDERS: PCP Family Medicine; Visit Provider Student in an Organized Health Care Education/Training Program | DX: S72.142D Displaced intertrochanteric fracture of left femur, subsequent encounter for closed fracture with routine healing (principal); X58.XXXD Exposure to other specified factors, subsequent encounter ==

== ENCOUNTER 2024-03-18 18:27 | Outpatient (REF) | payer MEDICARE, MEDICAID, SELFPAY ==
[2024-03-18 17:52] LABS: Abs Immature Grans 0.02 10^3/uL (0.0-0.06); Absolute Basophil Count 0.02 10^3/uL (0.0-0.2); Absolute Eosinophil Count 0.23 10^3/uL (0.0-0.7); Absolute Lymphocyte Count 1.53 10^3/uL (1.2-3.4); Absolute Monocyte Count 0.55 10^3/uL (0.1-0.8); Absolute Neutrophil Count 3.66 10^3/uL (1.2-6.7); Basophils % 0.3 %; Eosinophils % 3.8 %; HCT 39.2 % (36.0-46.0); HGB 12.2 g/dL (11.2-15.7); Immature Grans % 0.3 %; Lymphocytes % 25.5 %; MCH 30.5 pg (27.0-33.0); MCHC 31.1 % (32.0-36.0); MCV 98 fL (80-95); MPV 11.3 fL (8.0-11.0); Monocytes % 9.2 %; Neutrophils % 60.9 %; Platelet Count 269 10^3/uL (130-400); RDW 14.9 % (11.7-14.6); RDW-SD 54.2 fL; WBC 6.01 10^3/uL (4.4-10.8)
[2024-03-18 18:08] LABS: ALT 21 U/L (14-59); AST 23 U/L (15-37); Albumin 3.2 g/dL (3.4-5.0); Alkaline Phosphatase 143 U/L (46-116); Anion Gap 7.1 mmol/L (3-11); BUN 10 mg/dL (7-18); Bilirubin, Total 0.28 mg/dL (0.2-1.0); CO2 32.9 mmol/L (21.0-32.0); CREATININE 0.7 mg/dL (0.55-1.02); Calcium 8.8 mg/dL (8.5-10.1); Chloride 107 mmol/L (98-107); Estimated GFR 85.76 (mL/min/1.73m2); Glucose 109 mg/dL (74-106); NT-proBNP 134 pg/mL (<300); Potassium 4.3 mmol/L (3.5-5.1); Sodium 147 mmol/L (136-145); Total Protein 6.5 g/dL (6.4-8.2)
== END 2024-03-18 18:28 | disposition home or self-care (01) ==
LOC: LBN 18:27
PROVIDERS: PCP Family Medicine; Visit Provider Nurse Practitioner Gerontology
DX: I50.9 Heart failure, unspecified (principal); J18.9 Pneumonia, unspecified organism
CPT/HCPCS: 80053; 83880; 85025

== ENCOUNTER 2024-03-29 00:12 | Outpatient (CLI) | payer MEDICARE, MEDICAID, SELFPAY ==
--- NOTE | 2024-03-29 07:15 | DI.RAD_ITS ---
Exam(s) XR FEMUR LT EXAM: XR FEMUR LT CLINICAL HISTORY: eval L femur frx, complicated IMN fix,s72.142A. TECHNIQUE: 2D digital imaging was performed. COMPARISON: CR XR FEMUR LT from 01/03/2024 FINDINGS: Two views: Previously described ORIF hardware in the left hip is again noted as is the ipsilateral knee prosthes is. There is age-related osteopenia in the femur. Fracture site hardware appears slightly different in that the femoral head-neck component appears to be extending beyond the cortex of the femoral hea d on the present images, not previously the case. The avulsed lesser trochanter is unchanged. The knee prosthesis is stable in appearance. Lucency in the patella is noted but this is not adequat krzysztof included in the field of view. IMPRESSION: Multilevel findings as above. There appears to be an element of hardware migration or settling at th e intertrochanteric fracture site. The distal tip of the lag screw appears to project beyond the bor linn of the femoral head into the hip joint space on these images. DATA REPOSITORY: RADIATION DOSE DELIVERED:
== END 2024-03-29 00:32 ==
PROVIDERS: PCP Family Medicine; Visit Provider Student in an Organized Health Care Education/Training Program
DX: S72.142A Displaced intertrochanteric fracture of left femur, initial encounter for closed fracture (principal); X58.XXXA Exposure to other specified factors, initial encounter
CPT/HCPCS: 73552

== ENCOUNTER 2024-03-29 00:36 | Outpatient (CLI) | payer MEDICARE, MEDICAID, SELFPAY ==
--- NOTE | 2024-03-29 | DI.RAD_ITS ---
Exam(s) XR CHEST 2V PA LATERAL EXAM: XR CHEST 2V PA LATERAL CLINICAL HISTORY: COPD,COUGH,R05.9. TECHNIQUE: 2D digital imaging was performed. COMPARISON: CR,XR XR PORTABLE CHEST AP from 01/02/2024 CR XR PORTABLE CHEST AP from 01/03/2024 FINDINGS: 2 views: Large retrocardiac hiatal hernia again noted Heart size is upper normal. The upper mediastinum is not widened. Mild increased markings in both lung meredith but probably exaggerated by suboptimal inspiration. Janelle ot exclude developing pulmonary edema. There is platelike atelectasis in the mid left lung. Compression fracture in lower thoracic spine is noted IMPRESSION: As above. Recommend follow-up images at better inspiration effort, if possible DATA REPOSITORY: RADIATION DOSE DELIVERED:
== END 2024-03-29 00:56 ==
LOC: DI 00:41
PROVIDERS: PCP Family Medicine; Visit Provider Nurse Practitioner Gerontology
DX: S72.142D Displaced intertrochanteric fracture of left femur, subsequent encounter for closed fracture with routine healing (principal); X58.XXXD Exposure to other specified factors, subsequent encounter; Z98.890 Other specified postprocedural states
CPT/HCPCS: 73552; 71046

== ENCOUNTER 2024-04-01 22:40 | Outpatient (REF) | payer MEDICARE, MEDICAID, SELFPAY ==
[2024-04-01 18:57] LABS: Abs Immature Grans 0.01 10^3/uL (0.0-0.06); Absolute Basophil Count 0.02 10^3/uL (0.0-0.2); Absolute Eosinophil Count 0.27 10^3/uL (0.0-0.7); Absolute Lymphocyte Count 1.88 10^3/uL (1.2-3.4); Absolute Monocyte Count 0.54 10^3/uL (0.1-0.8); Absolute Neutrophil Count 2.51 10^3/uL (1.2-6.7); Basophils % 0.4 %; Eosinophils % 5.2 %; HCT 37.4 % (36.0-46.0); HGB 11.6 g/dL (11.2-15.7); Immature Grans % 0.2 %; Lymphocytes % 35.9 %; MCH 30.1 pg (27.0-33.0); MCV 97 fL (80-95); MPV 11.9 fL (8.0-11.0); Monocytes % 10.3 %; Platelet Count 242 10^3/uL (130-400); RBC 3.86 10^6/uL (3.93-5.22); RDW 14.6 % (11.7-14.6); RDW-SD 52.1 fL; WBC 5.23 10^3/uL (4.4-10.8)
[2024-04-01 19:08] LABS: ALT 24 U/L (14-59); AST 24 U/L (15-37); Albumin 3.1 g/dL (3.4-5.0); Alkaline Phosphatase 120 U/L (46-116); Anion Gap 10.9 mmol/L (3-11); BUN 9 mg/dL (7-18); Bilirubin, Total 0.31 mg/dL (0.2-1.0); CO2 28.1 mmol/L (21.0-32.0); CREATININE 0.6 mg/dL (0.55-1.02); Calcium 8.9 mg/dL (8.5-10.1); Chloride 100 mmol/L (98-107); Estimated GFR 89.01 (mL/min/1.73m2); Glucose 111 mg/dL (74-106); Potassium 4.7 mmol/L (3.5-5.1); Sodium 139 mmol/L (136-145); Total Protein 6.4 g/dL (6.4-8.2)
[2024-04-02 21:01] LABS: Rheumatoid Factor 9.2 IU/mL (<12.0)
[2024-04-03 10:43] LABS: Cyclic Citrullinated Peptide <2.5 U/mL (<5.0)
[2024-04-03 13:52] LABS: ANA Interpretation Positive (Negative); ANA Titer Pattern 1:160 Speckled
== END 2024-04-01 22:41 | disposition home or self-care (01) ==
LOC: LBN 22:40
PROVIDERS: PCP Family Medicine; Visit Provider Family Medicine
DX: M06.9 Rheumatoid arthritis, unspecified (principal); J84.9 Interstitial pulmonary disease, unspecified
CPT/HCPCS: 80053; 86200; 85025; 86038; 86431

== ENCOUNTER → 2024-04-08 10:14 | Outpatient (BNVA) | payer MEDICARE, MEDICAID, SELFPAY | PROVIDERS: PCP Family Medicine; Visit Provider Student in an Organized Health Care Education/Training Program | DX: S72.002P Fracture of unspecified part of neck of left femur, subsequent encounter for closed fracture with malunion (principal); S72.142P Displaced intertrochanteric fracture of left femur, subsequent encounter for closed fracture with malunion; T84.84XD Pain due to internal orthopedic prosthetic devices, implants and grafts, subsequent encounter; X58.XXXD Exposure to other specified factors, subsequent encounter | CPT/HCPCS: 99214 ==

== ENCOUNTER → 2024-04-09 09:53 | Outpatient (BNVA) | payer MEDICARE, MEDICAID, SELFPAY | PROVIDERS: PCP Family Medicine; Referring Provider Family Medicine; Visit Provider Internal Medicine Critical Care Medicine | DX: J84.9 Interstitial pulmonary disease, unspecified (principal); I10 Essential (primary) hypertension | CPT/HCPCS: 99215 ==

== ENCOUNTER 2024-04-11 04:30 | Outpatient (CLI) | payer MEDICARE, MEDICAID, SELFPAY ==
[2024-04-11] MEDS: Inhaler, Assist Device 1 EACH MC (11:42)
[2024-04-11] MEDS: Levalbuterol HFA 15 GM INH 4 PUFF IH (11:42)
--- NOTE | 2024-04-17 13:46 | W.NOCTURNAL ---
Date of service: 04/12/24 Time of Service: 18:00 Nocturnal Oximetry Note: Overnight oximetry on room air. Patient demonstrated 15 minutes below 88% with the lowest O2 saturation of 66% Nocturnal hypoxemia requiring at least 2 L O2
--- NOTE | 2024-05-02 18:43 | W.PFT ---
Date of service: 04/11/24 Time of Service: 10:06 Pulmonary Function Test Result Requesting Provider Chrissy Carrasquillo Indications: Chronic cough, former smoker 30 years ago. Pneumonia 2015. Pulmonary medications: Albuterol, not used before the test. Interpretation Spirometry: Spirometry pre and postbronchodilator show: Unreliable results, due to variable patient effort. Financial Sales Manager comments indicated a good patient effort. Consider repeating the test with further coaching of the patient on expectations of test and effort. Lung Volumes: Incomplete lung volume pulmonary function test, due to patient being unable to leave the wheelchair to the plethysmography chamber. Unable to assess for hyperinflation. Diffusion Capacity: Moderately decreased gas exchange, which improved to normal with adjustment for lung volume. However note that the lung volumes are not accurate. Clinical Correlation is recommended.
== END 2024-05-02 18:43 | disposition home or self-care (01) ==
LOC: RT 04:30
PROVIDERS: PCP Family Medicine; Visit Provider Family Medicine
DX: R05.9 Cough, unspecified (principal); J84.9 Interstitial pulmonary disease, unspecified
CPT/HCPCS: 00123; 94060; 94729; 94762

== ENCOUNTER 2024-04-16 02:18 | Outpatient (CLI) | payer MEDICARE, MEDICAID, SELFPAY ==
--- NOTE | 2024-04-16 08:00 | DI.CT_ITS ---
Exam(s) CT CHEST HIGH RESOLUTION EXAM: CT CHEST HIGH RESOLUTION CLINICAL HISTORY: cough, ?NSIP vs IPF,INTERSTITIAL LUNG DISEASE,J84,9. TECHNIQUE: Multi planar reconstructions were performed. CONTRAST MATERIAL: None COMPARISON: CT CT CHEST/ABD/PEL WO from 07/25/2023 CR XR PORTABLE CHEST AP from 01/03/2024 CR XR CHEST 2V PA LATERAL from 03/29/2024 FINDINGS: CHEST: LUNGS: There is chronic appearing interstitial lung disease again noted and again noted be more promi nent on the right side. Lesser amount evident in the left lung. Previously present ground-glass inf iltrates or air trapping in the left lung appear somewhat less on the present study. Mild pleural th ickening posteriorly on the left is noted. There are no ominous pulmonary nodules. MEDIASTINUM: No obvious sarahi are nor mediastinal adenopathy. The esophagus is somewhat dilated and f luid-filled and there is again noted a prominent hiatal hernia which measures 6 cm wide by 5 cm AP by 5.5 cm craniocaudal. The diameter of the esophagus is 2.2 cm. Visualized thyroid unremarkable. CARDIAC: Heart size is upper normal. There is mild thickening of the anterior pericardium. No signi ficant size pericardial effusion.Caliber of the thoracic aorta is within normal limits. VISUALIZED UPPER ABDOMEN:No obvious adrenal masses. Cyst in the lateral cortex of the partially incl uded left kidney again noted. This benign-appearing cyst measures 2.2 cm and does not require furthe r workup. OSSEOUS: Multilevel compression fractures again noted, involving T 6, T7, T8 T10 and T12, unchanged f rom 07/25/2023.. IMPRESSION: 1. Chronic appearing predominately right-sided interstitial lung disease, not associated with pleural effusion nor ominous pulmonary nodules. There is an associated 6 x 5 x 5.5 cm hiatal hernia and flu id-filled dilated esophagus, bringing to mind the possibility that this anomaly right-sided lung dise ase may be related to multiple aspiration sequelae. There is no intrathoracic adenopathy. 2. Multi level compression fractures in the thoracic spinal column again noted, unchanged from prior CT scan of July 2023. RADIATION DOSE DELIVERED: 545.73mGy.cm Total DLP DATA REPOSITORY: All CT scans at this facility are submitted to the National Radiology Data Registry (NRDR) Dose Index Registry (DIR) with the [employer] (ACR). RADIATION OPTIMIZATION: All CT scans at this facility use at least one of these dose optimization te chniques: automated exposure control; mA and/or kV adjustment per patient size (includes targeted exa ms where dose is matched to clinical indication); or iterative reconstruction.
--- NOTE | 2024-04-16 14:13 | DI.US_ITS ---
APPROVED REPORT EXAM: Comprehensive 2D, Doppler, and color-flow Echocardiogram Patient Location: Out-Patient Agriculture Internship: Sharda Guzman RDCS (AE) Indications: ? PHTN, Hypertension Other Information Study Quality: Fair. Technically limited study due to inability to position patient, exam done with p atiient sitting in wheelchair.. Conclusion Normal left ventricular wall thickness and chamber size. Ejection fraction is 58%. Wall motion is n ormal Normal right ventricular size and function Both atria appear normal in size Aortic valve is sclerotic and trileaflet without stenosis or regurgitation There is no additional hemodynamically significant valvular disease Right ventricular systolic pressure could not be estimated Overall the study appears similar to to that performed in December 2023 Wall motion Left Ventricle The left ventricle is normal size. The overall left ventricular systolic function appears normal. The re is normal left ventricular wall thickness. There is normal LV segmental wall motion. There is no v entricular septal defect visualized. LVEF is 58%. Right Ventricle Right ventricle is grossly normal in size. Right ventricular systolic function is grossly normal. Atria The left atrium size is normal. The right atrium size is normal. The interatrial septum is intact wit h no evidence for an atrial septal defect. Aortic Valve The Aortic valve is sclerotic. Aortic valve is trileaflet. There is no aortic valvular stenosis. No a ortic regurgitation is present. Mitral Valve Mild mitral annular calcification. No evidence of mitral valve stenosis. Trace mitral regurgitation. Tricuspid Valve The tricuspid valve is normal in structure. There is no tricuspid valve stenosis. Trace tricuspid reg urgitation. Pulmonic Valve The pulmonary valve is normal in structure. There is no pulmonic valvular stenosis. There is no pulmo álvaro valvular regurgitation. Great Vessels The aortic root is normal in size. The ascending aorta is normal in size. The IVC was not visualized. Pericardium Technically limited, patient is sitting in wheelchair. 2D Dimensions IVSD d PLAX 0.92 cm F: 0.6-1.0 Ao Root d 3.04 cm F: 2.7 - 3.3 LVPW d PLAX 0.94 cm F: 0.6 - 1.0 Ao Asc Diam d 3.19 cm F: 2.3 - 3.1 LVID d PLAX 4.77 cm F: 3.8 - 5.2 LVDs 3.29 cm F: 2.2 - 3.5 LV EF Teichholz 58.6 % FS 31.02 % LV EDV (Teich) 105.7 mL LV ESV (Teich) 43.7 mL Auto EF LV EDV A4C 73.6 mL LV EDV A2C 68.7 mL LV EDV BP 70.2 mL LV ESV A4C 30.2 mL LV ESV A2C 28.6 mL LV ESV BP 29.4 mL LVEF(%) A4C 58.9 % LVEF(%) A2C 58.4 % LVEF(%) BP 58.1 % LV SV A4C 43.4 ml LV SV A2C 40.1 ml LV SV BP 40.8 ml LV CO A4C 4.0 L/min LV CO A2C 3.7 L/min LV CO BP 3.8 L/min HR A4C 92.31 BPM HR A2C 92.08 BPM LV EDV Index (BP) LA Volume LA Length A4C 6.5 cm LA Length A2C 6.6 cm LA Area A4C s 22.70 cm2 LA Area A2C s 18.63 cm2 LA Vol A4C A-L 67.08 mL LA Vol A2C A-L 44.74 mL LA Vol Biplane A-L 55.1 mL LA Vol/BSA A4C A-L LA Vol/BSA A2C A-L LA Vol/BSA BP A-L 27.7 mL/m2 LA Vol A4C MOD 62.4 mL LA Vol A2C MOD 42.2 mL LA Vol BP MOD 51.2 mL LV Diastology MV E' medial 0.079 (>0.07 m/s) MV E Vmax 0.83 (0.4-1.3 m/s) MV E/E' MED 10.57 (<14) MV A Vmax 1.05 (0.4-1.3 m/s) MV E' lateral 0.093 (>0.1 m/s) E/A Ratio 0.8 MV E/E' LAT 8.95 (<14) MV E' Average 0.086 m/s MV E/E'(average) 9.69 Aortic Valve AoV Vmax 1.62 m/s LVOT Vmax 1.34 m/s AoV Peak Grad 10.4 mmHg LVOT Peak Grad 7.2 mmHg AoV Area (Vmax) 2.47 cm2 LVOT VTI 0.258 m AoV VTI 0.315 m LVOT Mean Grad 4.3 mmHg AoV Mean Oseas. 1.08 m/s LVOT SV 76.69 mL AoV Mean Grad 5.4 mmHg LVOT Diam s 1.90 cm AoV Area (VTI) 2.43 cm2 AV Regurg Peak Gr. 10.44 mmHg Velocity Ratio 0.83 Mitral Valve MV DT 238 (160-240 msec) MV Vmax TIPS 0.92 m/s MV Mean Grad 1.4 (<2mmHg) MV VTI 0.233 m Pulmonary Valve PV Vmax 1.22 (0.5-1.5 m/s) RVOT Vmax 1.01 m/s PV Peak Grad 5.9 mmHg RVOT Peak Gr. 4.1 mmHg PV Mean Oseas 0.77 m/s RVOT VTI 0.179 m PV Mean Grad 2.7 mmHg RVOT Mean Gr. 1.7 mmHg Tricuspid Valve TV S' 0.24 m/s TR Vmax 2.57 m/s TR Peak Grad 26.3 mmHg RVSP (TR) 26.4 mmHg
== END 2024-04-16 02:38 ==
PROVIDERS: PCP Family Medicine; Visit Provider Internal Medicine Critical Care Medicine
DX: J84.9 Interstitial pulmonary disease, unspecified (principal); I10 Essential (primary) hypertension
CPT/HCPCS: 36415; 71250; 85027; 85652; 86200; 93306; 83516; 84550; 86038; 86225; 86235; 86431

== ENCOUNTER 2024-04-16 03:02 | Outpatient (CLI) | payer MEDICARE, SELFPAY ==
[2024-04-16 15:31] LABS: HCT 38.1 % (36.0-46.0); HGB 11.5 g/dL (11.2-15.7); MCH 29.2 pg (27.0-33.0); MCHC 30.2 % (32.0-36.0); MCV 97 fL (80-95); MPV 10.3 fL (8.0-11.0); Platelet Count 246 10^3/uL (130-400); RBC 3.94 10^6/uL (3.93-5.22); RDW 14.3 % (11.7-14.6); RDW-SD 50.7 fL; WBC 6.37 10^3/uL (4.4-10.8)
[2024-04-16 16:43] LABS: Uric Acid 3.1 mg/dL (2.6-6.0)
[2024-04-16 18:35] LABS: ESR 26 mm/hr (0-30)
[2024-04-16 22:09] LABS: Rheumatoid Factor <8.6 IU/mL (<12.0)
[2024-04-17 09:04] LABS: Cyclic Citrullinated Peptide <2.5 U/mL (<5.0)
[2024-04-17 13:15] LABS: SS-B (La) Ab, IgG <3.3 CU (<20.0); Sm (Smith) Ab, IgG <8.0 CU (<20.0); dsDNA Ab, IgG <22.0 IU/mL (<27.0)
[2024-04-17 15:16] LABS: ANA Interpretation Positive (Negative); ANA Titer Pattern 1:160 Speckled
[2024-04-18 16:02] LABS: Myeloperoxidase Ab IgG <0.2 U (>=0.4); Proteinase 3 Ab (PR3) <0.2 U; Scl 70 Antibodies, IgG <0.2 U
== END 2024-04-16 03:03 | disposition home or self-care (01) ==
LOC: LBO 03:02
PROVIDERS: Family Medicine; PCP Family Medicine; Visit Provider Internal Medicine Critical Care Medicine
DX: J84.9 Interstitial pulmonary disease, unspecified (principal); R05.9 Cough, unspecified
CPT/HCPCS: 36415; 85027; 85652; 86200; 83516; 84550; 86038; 86225; 86235; 86431

== ENCOUNTER → 2024-05-13 10:39 | Outpatient (BNVA) | payer MEDICARE, MEDICAID, SELFPAY | PROVIDERS: PCP Family Medicine; Referring Provider Family Medicine; Visit Provider Physician Assistant Surgical | DX: J84.9 Interstitial pulmonary disease, unspecified (principal); J96.11 Chronic respiratory failure with hypoxia; K21.9 Gastro-esophageal reflux disease without esophagitis; K44.9 Diaphragmatic hernia without obstruction or gangrene | CPT/HCPCS: 99215 ==

== ENCOUNTER 2024-05-17 11:14 | Inpatient (IN) | payer MEDICARE, MEDICAID, SELFPAY ==
[2024-05-17] VITALS (32 sets, daily range): BP systolic 96–125; BP diastolic 47–94; PULSE 94–123; RESP 15–33; TEMP 37.4–37.8; O2SAT 85–100
--- NOTE | 2024-05-17 11:00 | RT.EKG_ITS ---
APPROVED REPORT Exam: Resting ECG Reason for Exam: Dyspnea Patient Location: E HR:105 bpm ECG Measurements Heart Rate 105 AXIS AL 145 P 33 QRSd 83 QRS -10 QT 336 T 18 QTc 446 Conclusion Sinus tachycardia...rate> 99 Low voltage, extremity and precordial leads...extremity<0.5mV, precordial<1.0mV
--- NOTE | 2024-05-17 11:15 | DI.RAD_ITS ---
Exam(s) XR CHEST 2V PA LATERAL EXAM: XR CHEST 2V PA LATERAL CLINICAL HISTORY: shortness of breath TECHNIQUE: 2D digital imaging was performed of the chest. Two images were obtained. PA and lateral views were obtained. COMPARISON: CR XR CHEST 2V PA LATERAL from 03/29/[address] CHEST HIGH RESOLUTION from 04/16/2024 FINDINGS: The patient is rotated. MEDIASTINUM: There is a hiatal hernia present. HEART: Normal. PULMONARY VASCULATURE: Normal. LUNGS: There is a question of a new opacity in the right lung base above the hemidiaphragm. Chronic interstitial changes are again seen in the right lung apex. PLEURAL SPACE: There is blunting of the left costophrenic angle suggesting a tiny pleural effusion. No pneumothorax is identified. BONE:Within normal limits for the patient's age. Multiple thoracic compression deformities are again seen. OTHER FINDINGS:Normal. IMPRESSION: 1. New opacity in the right lung base. This may represent atelectasis or pneumonia. 2. Stable chronic changes in the right lung apex in the left hilum. 3. Question of a small left pleural effusion. DATA REPOSITORY: RADIATION DOSE DELIVERED:
[2024-05-17 11:59] LABS: BE (Venous) 8 mmol/L (-2-3); HCO3 (Venous) 34 mmol/L (23-28); Lactate 0.7 mmol/L (0.6-1.4); O2 Sat (Venous) 55 %; TCO2 (Venous) 32 mmol/L (24-29); pCO2 (Venous) 60 mmHg (41-51); pH (Venous) 7.36 (7.31-7.41); pO2 (Venous) 30 mmHg
[2024-05-17 12:00] LABS: Abs Immature Grans 0.05 10^3/uL (0.0-0.06); Absolute Basophil Count 0.01 10^3/uL (0.0-0.2); Absolute Eosinophil Count 0.12 10^3/uL (0.0-0.7); Absolute Lymphocyte Count 0.49 10^3/uL (1.2-3.4); Absolute Monocyte Count 1.25 10^3/uL (0.1-0.8); Absolute Neutrophil Count 8.38 10^3/uL (1.2-6.7); Basophils % 0.1 %; Eosinophils % 1.2 %; HCT 35.8 % (36.0-46.0); HGB 11.2 g/dL (11.2-15.7); Immature Grans % 0.5 %; Lymphocytes % 4.8 %; MCH 28.9 pg (27.0-33.0); MCHC 31.3 % (32.0-36.0); MCV 93 fL (80-95); MPV 11.3 fL (8.0-11.0); Monocytes % 12.1 %; Neutrophils % 81.3 %; Platelet Count 201 10^3/uL (130-400); RBC 3.87 10^6/uL (3.93-5.22); RDW-SD 47.8 fL
[2024-05-17] MEDS: Albuterol 2.5 MG/3 ML INH SOLN VIAL UPD (12:18)
[2024-05-17 12:22] LABS: ALT 16 U/L (14-59); AST 21 U/L (15-37); Albumin 2.4 g/dL (3.4-5.0); Alkaline Phosphatase 132 U/L (46-116); Anion Gap 4.3 mmol/L (3-11); BUN 9 mg/dL (7-18); Bilirubin, Total 0.49 mg/dL (0.2-1.0); CO2 31.7 mmol/L (21.0-32.0); CREATININE 0.6 mg/dL (0.55-1.02); Calcium 9.1 mg/dL (8.5-10.1); Chloride 102 mmol/L (98-107); Estimated GFR 89.01 (mL/min/1.73m2); Glucose 109 mg/dL (74-106); Potassium 4.3 mmol/L (3.5-5.1); Sodium 138 mmol/L (136-145); Total Protein 6.8 g/dL (6.4-8.2); Troponin I 4 ng/L (<or=51)
[2024-05-17] MEDS: Levalbuterol 1.25 MG/3 ML UPD VIAL UPD (12:33)
[2024-05-17 12:41] LABS: COVID-19 PCR Negative (Negative); Influenza A PCR Negative (Negative); Influenza B PCR Negative (Negative); RSV PCR Negative (Negative)
[2024-05-17] MEDS: MAGNESIUM SULFATE 2 GM/50 ML BAG IVINF (12:41)
[2024-05-17 12:43] LABS: Procalcitonin < 0.1 ng/mL
[2024-05-17 12:45] LABS: Source Nasopharynx
[2024-05-17 13:08] LABS: Magnesium 1.8 mg/dL (1.8-2.4)
--- NOTE | 2024-05-17 13:30 | DI.CT_ITS ---
Exam(s) CT CHEST PE CTA EXAM: CT CHEST PE CTA CLINICAL HISTORY: shortness of breath, hypoxia. TECHNIQUE: Imaging Protocol: CT angiography of the chest was performed using pulmonary embolus joann col. Multi planar reconstructions were performed. CONTRAST MATERIAL: Intravenous: Omnipaque 350 Contrast volume: 100 cc COMPARISON: CT CT CHEST HIGH RESOLUTION from 04/16/2024 FINDINGS: CHEST: PULMONARY ARTERIES: There are no intraluminal filling defects to suggest acute pulmonary emboli. LUNGS: There is increased infiltrate in the right upper lobe, superimposed upon previously described chronic interstitial lung disease. Also in the superior segment of the right lower lobe. There is a lso a nodular fissure based infiltrate now evident in the mid right lung zone measuring approximately 2 x 1.8 cm. Also increasing markings in right lower lobe basal segments. No pleural effusion. Sta ble mild increased markings noted in the lingular segment of the left lung. Mild increased markings in left lower lobe are unchanged. No significant pleural effusions. MEDIASTINUM: There is prominent right hilar and subcarinal adenopathy evident..No adenopathy in the a nterior mediastinal fat. Slightly prominent right precarinal lymph node noted. Large hiatal hernia again noted. On the present study it measures 7 cm wide by 5.5 cm AP by 6 cm craniocaudal. CARDIAC: Heart size is upper normal. There is no pericardial effusion.Caliber of the thoracic aorta is within normal limits. No dissection. There is no significant shift of the interventricular septum . PARTIALLY VISUALIZED UPPERMOST ABDOMEN: No obvious findings OSSEOUS: The previously described multiple compression fractures in the thoracic spine are again note d. There do not appear to be new thoracic compression fractures when compared to the CT scan of 1 mo nth ago.Also no new rib fractures nor sternal fracture.. IMPRESSION: 1. No evidence of acute pulmonary emboli. However, there is significant increase in right upper lobe and right lower lobe infiltrate, this superimposed upon chronic interstitial lung disease. There is also now significant right-sided hilar adenopathy and subcarinal adenopathy evident. 2. No significant pleural effusions evident. 3. Large hiatal hernia again noted. Report called by myself to ER 05/17/2024 3:22 p.m. RADIATION DOSE DELIVERED: 137.69mGy.cm Total DLP DATA REPOSITORY: All CT scans at this facility are submitted to the National Radiology Data Registry (NRDR) Dose Index Registry (DIR) with the [employer] (ACR). RADIATION OPTIMIZATION: All CT scans at this facility use at least one of these dose optimization te chniques: automated exposure control; mA and/or kV adjustment per patient size (includes targeted exa ms where dose is matched to clinical indication); or iterative reconstruction.
--- NOTE | 2024-05-17 13:32 | ED.GENADUL_ITS ---
Discharge Plan Disposition Patient Disposition: Admit to [facility] Condition: Serious Discharge Details Clinical Impression: Pneumonia, V-tach, Respiratory failure Admit Date/Time: 05/17/24 16:19 Admit Provider: Audie Richmond Attending Provider: Audie Richmond Primary Care Provider: Iesha Leary ED Provider: Ni Herman Discharge Data Discharge Date/Time-TO BE ENTERED AT DEPARTURE: 05/17/24 17:36 HPI <JE Carrion - Last Filed: 05/19/24 17:35> General Date/Time Provider Initiated Documentation: 05/17/24 11:16 . HPI Narrative: This 83-year-old female with chronic hypoxic respiratory failure, displaced intertrochanteric fracture, urinary tract infection fibromyalgia presents with report of fever and and new oxygen continuous requirement for hypoxia from the [facility] where she resides. Patient denies any pain complaints. She states that she is been sick for the past week with upper respiratory symptoms. Oxygen was 70% compliance. She is on 2 L and has had increased sputum production per patient. She denies any falls or injuries. She denies any nausea or vomiting. Denies any calf pain or swelling or history of coagulopathy. Related Data Home Medications ?Medication ?Instructions ?Recorded ?Confirmed cholecalciferol (vitamin D3) 10 50 mcg PO DAILY 12/06/13 05/27/24 mcg (400 unit) tablet (Vitamin D3) ferrous sulfate 325 mg (65 mg 325 mg PO TID 12/06/13 05/27/24 iron) tablet glucosamine sulfate 2KCl 1,000 mg 500 mg PO BID 12/06/13 05/27/24 tablet medroxyprogesterone 2.5 mg tablet 2.5 mg PO DAILY 11/18/16 05/25/24 (Provera) potassium chloride 20 mEq 20 meq PO TID 11/25/16 05/27/24 tablet,extended release(part/cryst) fluticasone propionate 50 1 spray intranasal BID 09/19/20 05/27/24 mcg/actuation nasal spray,suspension quetiapine 50 mg tablet 50 mg PO QPM 03/19/22 05/27/24 trazodone 100 mg tablet 200 mg PO HS 03/19/22 05/27/24 cyclosporine 0.05 % eye drops in a 8 drp OU BID #30 ea 08/02/23 05/27/24 dropperette ginkgo biloba 40 mg tablet 240 mg PO DAILY PRN 10/18/23 05/27/24 magnesium 250 mg tablet 500 mg PO BID 10/18/23 05/27/24 vit B complex 100 combo no.2 100 1 tab PO DAILY 10/18/23 05/27/24 mg tablet,extended release (Balanced B-100 Complex) vitamin A 2,400 mcg capsule 2,400 mcg PO DAILY PRN 10/18/23 05/27/24 vitamin E (dl, acetate) 45 mg (100 180 mg PO DAILY 10/18/23 05/25/24 unit) capsule zinc acetate 25 mg (zinc) capsule 100 mg PO BID 10/18/23 05/27/24 ascorbic acid (vitamin C) 1,000 mg 1 g PO BID 01/23/24 05/27/24 tablet loratadine 10 mg tablet (Allergy 10 mg PO DAILY 01/23/24 05/27/24 Relief (loratadine)) duloxetine 60 mg capsule,delayed 60 mg PO BID 03/20/24 05/27/24 release (Cymbalta) calcium carbonate (Tums Ultra) 2,000 mg PO DAILY PRN 04/09/24 05/27/24 coffee extract 100 mg-phosphatidyl 1 cap PO DAILY PRN 04/09/24 05/27/24 serine 100 mg capsule (Neuriva Original) polyethylene glycol 3350 17 17 g PO DAILY 04/09/24 05/27/24 gram/dose oral powder benzonatate 100 mg capsule 100 mg PO BID 04/29/24 05/27/24 bisacodyl 10 mg rectal suppository 10 mg GA DAILY PRN 04/29/24 05/27/24 multivitamin 1 tab PO DAILY 04/29/24 05/27/24 montelukast 10 mg tablet 10 mg PO DAILY #90 tabs 05/02/24 05/27/24 omeprazole 20 mg capsule,delayed 20 mg PO BID #60 caps 05/13/24 05/27/24 release sucralfate 1 gram tablet 1 g PO TID 05/13/24 05/27/24 albuterol sulfate 90 mcg/actuation 2 puff inhalation TID 05/17/24 05/27/24 aerosol inhaler (Ventolin HFA) calcitonin (salmon) 200 1 spray NS DAILY 05/17/24 05/27/24 unit/actuation nasal spray midodrine 5 mg tablet 5 mg PO TID 05/17/24 05/27/24 morphine 30 mg tablet,extended 30 mg PO Q8H 05/17/24 05/27/24 release hydromorphone 2 mg tablet 2 mg PO HS pain 05/18/24 05/27/24 pregabalin 75 mg capsule 75 mg PO TID 05/18/24 05/27/24 ipratropium 0.5 mg-albuterol 3 mg 3 ml inhalation TID 05/27/24 05/27/24 (2.5 mg base)/3 mL nebulization soln morphine concentrate 20 mg/mL oral 10 mg sublingual ONCE 05/27/24 05/27/24 syringe (FOR ORAL USE ONLY) levofloxacin 750 mg tablet 750 mg PO DAILY #10 tabs 05/30/24 Previous Rx's ?Medication ?Instructions ?Recorded cyclosporine 0.05 % eye drops in a 8 drp OU BID #30 ea 08/02/23 dropperette montelukast 10 mg tablet 10 mg PO DAILY #90 tabs 05/02/24 omeprazole 20 mg capsule,delayed 20 mg PO BID #60 caps 05/13/24 release levofloxacin 750 mg tablet 750 mg PO DAILY #10 tabs 05/30/24 Allergies Allergy/AdvReac Type Severity Reaction Status Date / Time fentanyl AdvReac Nausea Verified 05/27/24 09:48 General Stated Complaint: SOB MELISSA: 3 Exam <JE Carrion - Last Filed: 05/19/24 17:35> Narrative Exam Narrative: 83-year-old female alert and oriented in no significant acute distress, sinus tachycardia without murmurs or rubs appears chronically ill, pupils are round, patient, crackles throughout, mildly diminished lung sounds, no abdominal tenderness appreciated, pallor, alert and oriented x 3, no significant peripheral edema, distal pulses intact Course <JE Carrion Last Filed: 05/19/24 17:35> Vital Signs Vital signs: Vital Signs Temperature 37.8 C H 05/17/24 11:10 Pulse 103 H 05/17/24 11:10 Respiratory Rate 20 05/17/24 11:10 Blood Pressure 110/73 05/17/24 11:10 Pulse Oximetry 96 05/17/24 11:10 Temperature 37.8 C H 05/17/24 11:10 Temperature Source Oral 05/17/24 11:10 Pulse 101 H 05/17/24 12:41 Pulse 115 H 05/17/24 12:42 Respiratory Rate 33 H 05/17/24 12:42 Respiratory Effort Short of Breath 05/17/24 12:18 Respiratory Depth Normal 05/17/24 12:18 Respiratory Pattern Normal 05/17/24 12:18 Blood Pressure 100/49 L 05/17/24 12:41 Blood Pressure Mean 65 05/17/24 12:41 Pulse Oximetry 96 05/17/24 12:42 Oxygen Delivery Method Nasal Cannula 05/17/24 11:10 Oxygen Flow Rate 2 05/17/24 11:10 Pain Level 10 05/17/24 11:10 Comment hip pain with movement oriented to person and place 05/17/24 11:10 Lab/Test Results Lab/Test Results: 05/17/24 12:35 Blood Blood Culture - Pending 05/17/24 11:49 Blood Blood Culture - Pending Laboratory Tests Range/Units 05/17/24 05/17/24 05/17/24 11:45 11:48 11:48 WBC (4.4-10.8) 10^3/uL 10.30 RBC (3.93-5.22) 10^6/uL 3.87 L Hgb (11.2-15.7) g/dL 11.2 Hct (36.0-46.0) % 35.8 L MCV (80-95) fL 93 MCH (27.0-33.0) pg 28.9 MCHC (32.0-36.0) % 31.3 L RDW (11.7-14.6) % 14.0 Plt Count (130-400) 10^3/uL 201 MPV (8.0-11.0) fL 11.3 H Immature Gran % % 0.5 Neutrophils % % 81.3 Lymphocytes % % 4.8 Monocytes % % 12.1 Eosinophils % % 1.2 Basophils % % 0.1 Nucleated RBC % (0.0-0.3) % 0.0 Absolute Neutrophils (1.2-6.7) 10^3/uL 8.38 H Absolute Lymphocytes (1.2-3.4) 10^3/uL 0.49 L Absolute Monocytes (0.1-0.8) 10^3/uL 1.25 H Absolute Eosinophils (0.0-0.7) 10^3/uL 0.12 Absolute Basophils (0.0-0.2) 10^3/uL 0.01 VBG pH (7.31-7.41) 7.36 VBG pCO2 (41-51) mmHg 60 H VBG pO2 mmHg 30 VBG HCO3 (23-28) mmol/L 34 H VBG Total CO2 (24-29) mmol/L 32 H VBG O2 Saturation % 55 VBG Base Excess (-2-3) mmol/L 8 H VBG Lactate (0.6-1.4) mmol/L 0.7 Cancelled Sodium (136-145) mmol/L 138 Potassium (3.5-5.1) mmol/L 4.3 Chloride (98-107) mmol/L 102 Carbon Dioxide (21.0-32.0) mmol/L 31.7 Anion Gap (3-11) mmol/L 4.3 BUN (7-18) mg/dL 9 Creatinine (0.55-1.02) mg/dL 0.6 Est GFR (CKD-EPI 2020) (mL/min/1.73m2) 89.01 Glucose (74-106) mg/dL 109 H Calcium (8.5-10.1) mg/dL 9.1 Magnesium (1.8-2.4) mg/dL 1.8 Total Bilirubin (0.2-1.0) mg/dL 0.49 AST (15-37) U/L 21 ALT (14-59) U/L 16 Alkaline Phosphatase (46-116) U/L 132 H Troponin I (<or=51) ng/L 4 Total Protein (6.4-8.2) g/dL 6.8 Albumin (3.4-5.0) g/dL 2.4 L Procalcitonin ng/mL < 0.1 COVID-19 Source Nasopharynx SARS-CoV-2 (PCR) (Negative) Negative Influenza Type A (PCR) (Negative) Negative Influenza Type B (PCR) (Negative) Negative RSV (PCR) (Negative) Negative Medical Decision Making <JE Carrion - Last Filed: 05/19/24 17:35> This 83-year-old female presents from the [facility] with fever and hypoxia. Diagnostic labs, sepsis workup are initiated. Patient is alert, oriented, pleasant, on 2 L of oxygen which she is tolerating well. Diagnostic blood work does not show significant acute abnormality including lactate and procalcitonin however chest x-ray is concerning for right lower lobe infiltrate. Patient did have an episode of ventricular tachycardia: In nature which lasted approximately 8 beats and it is roughly 1300. She was given magnesium at that time and pending magnesium lab. She has remained in normal sinus rhythm since that time. We are unable to catch her EKG and ventricular tachycardia. You have a fair clot [facility] pending cardiology consultation for any recommendations. Patient was initially a DO NOT RESUSCITATE status, I did confirm this with patient and she requests to be a full CODE STATUS and states she would like intervention should the need arise. She is detailed as a palliative care patient so I will leave further discussions with hospital service. Patient received doxycycline and ceftriaxone 2 g for pneumonia. CTA was ordered to be sure there is no PE contributing the patient's bedbound status and CTA does not show evidence of PE, patient does have a large right upper lobe and right lower lobe infiltrate with adenopathy. She received nebulizer treatments and steroids upon arrival. She received 1 L of fluids, she had an echocardiogram of the excellent ejection fraction approximately 1 month ago of 55%. She will require admission at this time to the hospital. Case discussed with Dr. Arrington. She is pending cardiology consultation for any recommendations with the polymorphic ventricular tachycardia. Again magnesium is stable at 1.8. Cardiology did not recommend antiarrhythmic tachycardia at this time, recommend continued monitoring, echocardiogram as needed and Zio patch with discharge Quality:[facility] Health Related Social Needs: No Data to Display <Jabari Mcadams MD - Last Filed: 05/31/24 11:32> Date: 05/17/24 Time: 14:47 Note: Patient seen, examined, and discussed with JE Herman. Patient with hypoxia and increased oxygen needs. She has been febrile and has productive cough. Patient has infiltrate on chest x-ray. There is concern for potential pulmonary embolism. Plan to obtain CT of the chest. EKG was reviewed and interpreted by me: Please see report. Patient did have witnessed run of wide-complex, polymorphic tachycardia concerning for ventricular tachycardia given no underlying block at baseline. Patient was asymptomatic during the episode. This rhythm spontaneously resolved fairly quickly without intervention. I agree with treatment plan as discussed/documented. PFSH <JE Carrion - Last Filed: 05/19/24 17:35> All Active Problems (Updated 05/31/24 @ 00:05 by CASSIE NEGRON) Chronic pain (Chronic) Pneumonia (Acute) Sepsis associated hypotension (Acute) Nail dystrophy (Acute) Hypokalemia (Acute) Acute on chronic respiratory failure with hypoxia and hypercapnia (Acute) Respiratory failure (Acute) Pneumonia (Acute) Chronic hypoxic respiratory failure (Acute) Displaced intertrochanteric fracture of left femur, subsequent encounter for closed fracture with malunion (Acute) Pain due to internal orthopedic prosthetic device (Acute) Lung disease (Acute) Left hip pain (Acute) Interstitial lung disease (Acute) secondary to chronic aspiration Seasonal allergies (Acute) Skin ulcer (Acute) Community acquired pneumonia (Acute) DNR (do not resuscitate) (Acute) E. 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 fell down and could not get up Morbid obesity (Chronic) Allergic rhinitis (Chronic) Hyperlipidemia (Chronic) Fibromyalgia (Chronic) DJD (degenerative joint disease) (Chronic) Gastroesophageal reflux disease (Chronic) Hiatal hernia (Chronic) Irritable bowel syndrome (Chronic) History of surgery (Chronic) a. S/P open right ankle fracture/dislocation. b. Left knee arthroscopy. c. Right wrist fracture repair. d. T/A as a child. Dehydration, mild (Acute 09/22/14) Housing or economic circumstance (Chronic 09/22/14) a. No heat for 1-1/2 days H/O fall (Chronic) Anemia (Chronic) Alcohol withdrawal delirium (Acute 09/22/14) Rhabdomyolysis (Acute 09/22/14) Ataxia (Chronic) Onychomycosis (Chronic) Depression (Chronic) Medical History Frequent falls Alcohol withdrawal NSIP (nonspecific interstitial pneumonia) Fracture of right inferior pubic ramus Fracture of right superior pubic ramus ACP (advance care planning) Laceration of skin of right forearm Skin ulcer of lower leg Laceration of arm, right, complicated Fractured pelvis T12 compression fracture Acute exacerbation of chronic low back pain Fall Person living alone (09/22/14) Hiatal hernia IBS (irritable bowel syndrome) Hypertension Allergic rhinitis GERD (gastroesophageal reflux disease) DJD (degenerative joint disease) Hyperlipidemia Hypercholesterolemia Fibromyalgia Depression Anemia Alcohol abuse Insomnia Surgical History Tonsillectomy and adenoidectomy Repair fracture right wrist ORIF right ankle Colonoscopy - MAC (11/18/16) Arthroplasty of knee left Family History Mother Dementia Maternal Aunt Diabetes Social History Smoking/Tobacco Use Status: Former Tobacco Use Smoking risk assessment performed?: Yes Alcohol Intake: current Alcohol Intake frequency: 0-2 drinks per day Alcohol type: wine Counseling given: Yes Details: 1-2 bottle of wine/day Drug use: Daily Substance use type: does not use and marijuana Details: two tokes for sleep Housing: senior living Do you feel safe at home: Yes Do you feel safe in your relationship?: Yes Additional Social history: Lives alone in home in [facility], has a cat. States hasn't been out of house for a year. One sister in [place]
[2024-05-17] MEDS: DOXYCYCLINE 100 MG in Normal Saline 100 ML IVPB ×2 (13:43→23:29)
[2024-05-17] MEDS: Normal Saline 1,000 ML 1000 ML IV (13:44)
[2024-05-17 14:17] LABS: Bilirubin Negative (Negative); Blood Negative (Negative); Clarity Clear (Clear); Glucose Negative (Negative); Ketones 40 mg/dL (Negative); Leukocyte Esterase Small (Negative); Nitrite Negative (Negative); Specific Gravity >= 1.030 (1.005-1.025); Urobilinogen 0.2 mg/dL (Up to 0.2); pH 5.5 (5-8)
[2024-05-17] MEDS: cefTRIAXone 2 GM/50 ML BAG IVPB (14:19)
[2024-05-17] MEDS: Normal Saline - Diluent 50 ML VIAL IJ (14:21)
[2024-05-17 14:35] LABS: Bacteria Few HPF (Negative); C & S Indicated? No/Sq. Contamination; Crystals Negative HPF (Negative); Epithelial Cells Moderate HPF (Negative); Mucus Trace (Negative); Other Cells Few Renal (Negative); RBC 0-2 HPF (0-2)
[2024-05-17 14:36] LABS: Casts 3-5 Hyaline LPF (Negative)
[2024-05-17 16:06] LABS: Troponin I 5 ng/L (<or=51)
--- NOTE | 2024-05-17 16:37 | W.PM.HP.N ---
Date of service: 05/17/24 Time of Service: 16:37 Assessment and Plan Assessment and plan (1) Community acquired pneumonia: Status: Ruled-out Assessment and plan: Agree with treatment with ceftriaxone and doxycycline. Has baseline ILD, history of chronic aspiration per record. Get swallow study. Treat with steroids along with antibiotics. Blood culture pending, get sputum culture. Qualifiers: Laterality: unspecified laterality Qualified Code(s): J18.9 - Pneumonia, unspecified organism (2) Acute on chronic respiratory failure with hypoxia and hypercapnia: Status: Acute Assessment and plan: Acute on chronic, associated with pneumonia and ILD exacerbation. Some chronic CO2 retention, but worse on admission VBG. Respiratory status has stabilized in ED on O2 via NC. Follow. (3) Sepsis: Status: Acute Assessment and plan: Meets criteria with tachycardia and tachypnea, also fever 101.5 at SN[facility] with pulmonary source. Antibiotics as above, cultures pending. (4) Non-sustained ventricular tachycardia: Status: Acute Assessment and plan: Looked monomorphic so given magnesium. QTc okay. Case reviewed with [facility] and no medicaitons recommended, tele monitoring. Her suppluments, specifically the stimulant containing neuriva, may be a trigger along with acute illness. (5) Anemia: Assessment and plan: Improved. On high dose iron. Recheck levels, decrease iron dose. (6) Hypotension: Status: Resolved Assessment and plan: chronically on midodrine. MAPs >65 while here. No signs of acute hypotension a/w sepsis. Continue midodrine. Qualifiers: Hypotension type: hypotension due to hypovolemia Qualified Code(s): E86.1 - Hypovolemia (7) Palliative care patient: Status: Acute Assessment and plan: h/o DNR/DNI now requeting full code. Will consult palliative. (8) DVT prophylaxis: Status: Acute Assessment and plan: enoxaparin History of Present Illness History of Present Illness Chief Complaint: cough, fever Narrative: 83 yo F with history of ILD, resident of [facility] since December 2023 when she fell and broke her hip and never regained the ability to walk, chronic pain on opioids, who was sent from the [facility] with increasing cough and fever today to 101.5. She is a very vague and circuitous historian. She feels like her cough and breathing has gotten worse since her surgery in December, feels like not moving has made the mucous settle in her lungs. Her mobility has gotten even worse due to pain in her left leg in the past 3 weeks. She has not had runny nose or sore throat, though she has a history of nasal allergies. She has some chest tightness with a deep breath, but no ongoing chest pain, no palpitations. She denies any recent aspiration event, though per her history her ILD is related to chronic aspiration. She formerly abused alcohol but no longer drinks. Review of Systems All systems reviewed & are unremarkable except as noted in HPI and below PFSH All Active Problems Sepsis (Acute) DVT prophylaxis (Acute) Acute on chronic respiratory failure with hypoxia and hypercapnia (Acute) Non-sustained ventricular tachycardia (Acute) Respiratory failure (Acute) Pneumonia (Acute) Chronic hypoxic respiratory failure (Acute) Displaced intertrochanteric fracture of left femur, subsequent encounter for closed fracture with malunion (Acute) Pain due to internal orthopedic prosthetic device (Acute) Lung disease (Acute) Left hip pain (Acute) Cough (Acute) Seasonal allergies (Acute) Intertrochanteric fracture of left femur (Acute) S/P IM FIXATION 01/01/24 Skin ulcer (Acute) Palliative care patient (Acute) DNR (do not resuscitate) (Acute) 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 No heat for 1-1/2 days Dehydration, mild (Acute 09/22/14) History of surgery (Chronic) a. S/P open right ankle fracture/dislocation. b. Left knee arthroscopy. c. Right wrist fracture repair. d. T/A as a child. Irritable bowel syndrome (Chronic) Hiatal hernia (Chronic) Gastroesophageal reflux disease (Chronic) Insomnia (Chronic) DJD (degenerative joint disease) (Chronic) Fibromyalgia (Chronic) Hyperlipidemia (Chronic) Allergic rhinitis (Chronic) Morbid obesity (Chronic) Fall (Acute 09/22/14) a. fell down and could not get up Medical History Frequent falls Alcohol withdrawal NSIP (nonspecific interstitial pneumonia) Fracture of right inferior pubic ramus Fracture of right superior pubic ramus ACP (advance care planning) Laceration of skin of right forearm Skin ulcer of lower leg Laceration of arm, right, complicated Fractured pelvis T12 compression fracture Acute exacerbation of chronic low back pain Fall Hiatal hernia IBS (irritable bowel syndrome) Hypertension Allergic rhinitis GERD (gastroesophageal reflux disease) DJD (degenerative joint disease) Hyperlipidemia Hypercholesterolemia Fibromyalgia Depression Anemia Alcohol abuse Insomnia Person living alone (09/22/14) Surgical History Tonsillectomy and adenoidectomy Repair fracture right wrist ORIF right ankle Colonoscopy - MAC (11/18/16) Arthroplasty of knee left Family History Mother Dementia Maternal Aunt Diabetes Social History Smoking/Tobacco Use Status: Former Tobacco Use Smoking risk assessment performed?: Yes Alcohol Intake: current Alcohol Intake frequency: 0-2 drinks per day Alcohol type: wine Counseling given: Yes Details: 1-2 bottle of wine/day Drug use: Daily Substance use type: does not use and marijuana Details: two tokes for sleep Housing: house Do you feel safe at home: Yes Do you feel safe in your relationship?: Yes Additional Social history: Lives alone in home in [facility], has a cat. States hasn't been out of house for a year. One sister in [place] Meds Allergies and Home Medications Allergies Allergy/AdvReac Type Severity Reaction Status Date / Time fentanyl AdvReac Nausea Verified 05/17/24 11:23 Home Medications ?Medication ?Instructions ?Recorded ?Confirmed ?Type cholecalciferol (vitamin D3) 10 50 mcg PO DAILY 12/06/13 05/17/24 History mcg (400 unit) tablet (Vitamin D3) ferrous sulfate 325 mg (65 mg 325 mg PO TID 12/06/13 05/17/24 History iron) tablet glucosamine sulfate 2KCl 1,000 mg 500 mg PO BID 12/06/13 05/17/24 History tablet medroxyprogesterone 2.5 mg tablet 2.5 mg PO DAILY 11/18/16 05/17/24 History (Provera) potassium chloride 20 mEq 20 meq PO TID 11/25/16 05/17/24 History tablet,extended release(part/cryst) fluticasone propionate 50 1 spray intranasal BID 09/19/20 05/17/24 History mcg/actuation nasal spray,suspension quetiapine 50 mg tablet 50 mg PO QPM 03/19/22 05/17/24 History trazodone 100 mg tablet 200 mg PO HS 03/19/22 05/17/24 History cyclosporine 0.05 % eye drops in a 8 drp OU BID #30 ea 08/02/23 05/17/24 Rx dropperette ginkgo biloba 40 mg tablet 240 mg PO DAILY PRN 10/18/23 05/17/24 History magnesium 250 mg tablet 500 mg PO BID 10/18/23 05/17/24 History vit B complex 100 combo no.2 100 1 tab PO DAILY 10/18/23 05/17/24 History mg tablet,extended release (Balanced B-100 Complex) vitamin A 2,400 mcg capsule 2,400 mcg PO DAILY PRN 10/18/23 05/17/24 History vitamin E (dl, acetate) 45 mg (100 180 mg PO DAILY 10/18/23 05/17/24 History unit) capsule zinc acetate 25 mg (zinc) capsule 100 mg PO BID 10/18/23 05/17/24 History midodrine 2.5 mg tablet 5 mg (2 x 2.5 mg) PO TID #90 tabs 01/05/24 05/17/24 Rx ascorbic acid (vitamin C) 1,000 mg 1 g PO BID 01/23/24 05/17/24 History tablet loratadine 10 mg tablet (Allergy 10 mg PO DAILY 01/23/24 05/17/24 History Relief (loratadine)) duloxetine 60 mg capsule,delayed 60 mg PO BID 03/20/24 05/17/24 History release (Cymbalta) calcium carbonate (Tums Ultra) 2,000 mg PO DAILY PRN 04/09/24 05/17/24 History coffee extract 100 mg-phosphatidyl 1 cap PO DAILY PRN 04/09/24 05/17/24 History serine 100 mg capsule (Neuriva Original) polyethylene glycol 3350 17 17 g PO DAILY 04/09/24 05/17/24 History gram/dose oral powder benzonatate 100 mg capsule 100 mg PO BID 04/29/24 05/17/24 History bisacodyl 10 mg rectal suppository 10 mg AR DAILY PRN 04/29/24 05/17/24 History multivitamin 1 tab PO DAILY 04/29/24 05/17/24 History hydromorphone 2 mg tablet 1 mg (1/2 x 2 mg) PO HS pain #15 05/02/24 05/17/24 Rx tabs montelukast 10 mg tablet 10 mg PO DAILY #90 tabs 05/02/24 05/17/24 Rx omeprazole 20 mg capsule,delayed 20 mg PO BID #60 caps 05/13/24 05/17/24 Rx release sucralfate 1 gram tablet 1 g PO 4XD 05/13/24 05/17/24 History albuterol sulfate 90 mcg/actuation 2 puff inhalation TID 05/17/24 05/17/24 History aerosol inhaler (Ventolin HFA) calcitonin (salmon) 200 1 spray NS DAILY 05/17/24 05/17/24 History unit/actuation nasal spray midodrine 5 mg tablet 5 mg PO TID 05/17/24 05/17/24 History morphine 30 mg tablet,extended 30 mg PO TID 05/17/24 05/17/24 History release pregabalin 25 mg capsule (Lyrica) 75 mg PO TID 05/17/24 05/17/24 History Exam Narrative Exam Narrative: GEN: Alert and oriented x 4, pleasant and cooperative, gives vague and limited history. No acute distress at rest. HEENT: Head atraumatic. Conjunctiva clear, no icterus. PEERL, EOMI. no rhinorrhea. MMM, OP benign. Neck is supple with no masses or lymphadenopathy, trachea midline LUNGS: Rales most of right lung field sparing apex, expiratory wheezes on the right. CV: RRR with no murmurs, gallops, or rubs. ABD: active bowel sounds, soft, nontender and nondistended. No masses. EXT: no cyanosis, clubbing, or edema. Feet warm. MSK: Does not move left hip, resting slightly externally rotated. no joint redness/swelling NEURO: CN 2-12 grossly intact. Normal movement of 4 extremities other than left hip. Normal speech and coordination. No tremor SKIN: No rashes or open wounds, though scattered bruises, I was not able to see her sacrum. PSYCH: normal mood and affect, no abnormal thought content, though tangetial thought process. Results Imaging CT scan - chest: report reviewed (see below) Additional studies: CT chest: 1. No evidence of acute pulmonary emboli. However, there is significant increase in right upper lobe and right lower lobe infiltrate, this superimposed upon chronic interstitial lung disease. There is also now significant right-sided hilar adenopathy and subcarinal adenopathy evident. 2. No significant pleural effusions evident. 3. Large hiatal hernia again noted. EKG: report reviewed and image reviewed (sinus tachy, no ischemia, low voltage, QTc 336) Imaging Studies: echo 04/13/24: Normal left ventricular wall thickness and chamber size. Ejection fraction is 58%. Wall motion is normal Normal right ventricular size and function Both atria appear normal in size Aortic valve is sclerotic and trileaflet without stenosis or regurgitation There is no additional hemodynamically significant valvular disease Right ventricular systolic pressure could not be estimated Overall the study appears similar to to that performed in December 2023 Labs 05/17/24 11:48 05/17/24 11:48 Labs: Laboratory Results - last 24 hr 05/17/24 05/17/24 05/17/24 11:45 11:48 11:48 WBC 10.30 RBC 3.87 L Hgb 11.2 Hct 35.8 L MCV 93 MCH 28.9 MCHC 31.3 L RDW 14.0 Plt Count 201 MPV 11.3 H Immature Gran % 0.5 Neutrophils % 81.3 Lymphocytes % 4.8 Monocytes % 12.1 Eosinophils % 1.2 Basophils % 0.1 Nucleated RBC % 0.0 Absolute Neutrophils 8.38 H Absolute Lymphocytes 0.49 L Absolute Monocytes 1.25 H Absolute Eosinophils 0.12 Absolute Basophils 0.01 VBG pH 7.36 VBG pCO2 60 H VBG pO2 30 VBG HCO3 34 H VBG Total CO2 32 H VBG O2 Saturation 55 VBG Base Excess 8 H VBG Lactate 0.7 Cancelled Sodium 138 Potassium 4.3 Chloride 102 Carbon Dioxide 31.7 Anion Gap 4.3 BUN 9 Creatinine 0.6 Est GFR (CKD-EPI 2020) 89.01 Glucose 109 H Calcium 9.1 Magnesium 1.8 Total Bilirubin 0.49 AST 21 ALT 16 Alkaline Phosphatase 132 H Troponin I 4 Total Protein 6.8 Albumin 2.4 L Procalcitonin < 0.1 Urine Color Urine Clarity Urine pH Ur Specific [place] Urine Protein Urine Ketones Urine Blood Urine Nitrite Urine Bilirubin Urine Urobilinogen Ur Leukocyte Esterase Urine RBC Urine WBC Ur Epithelial Cells Urine Crystals Urine Bacteria Urine Casts Urine Mucus Urine Other Ur Culture Indicated? Urine Glucose COVID-19 Source Nasopharynx SARS-CoV-2 (PCR) Negative Influenza Type A (PCR) Negative Influenza Type B (PCR) Negative RSV (PCR) Negative 05/17/24 05/17/24 14:12 15:35 WBC RBC Hgb Hct MCV MCH MCHC RDW Plt Count MPV Immature Gran % Neutrophils % Lymphocytes % Monocytes % Eosinophils % Basophils % Nucleated RBC % Absolute Neutrophils Absolute Lymphocytes Absolute Monocytes Absolute Eosinophils Absolute Basophils VBG pH VBG pCO2 VBG pO2 VBG HCO3 VBG Total CO2 VBG O2 Saturation VBG Base Excess VBG Lactate Sodium Potassium Chloride Carbon Dioxide Anion Gap BUN Creatinine Est GFR (CKD-EPI 2020) Glucose Calcium Magnesium Total Bilirubin AST ALT Alkaline Phosphatase Troponin I 5 Total Protein Albumin Procalcitonin Urine Color Yellow Urine Clarity Clear Urine pH 5.5 Ur Specific [place] >= 1.030 H Urine Protein Trace Urine Ketones 40 H Urine Blood Negative Urine Nitrite Negative Urine Bilirubin Negative Urine Urobilinogen 0.2 Ur Leukocyte Esterase Small H Urine RBC 0-2 Urine WBC 5-10 Ur Epithelial Cells Moderate Urine Crystals Negative Urine Bacteria Few Urine Casts 3-5 Hyaline Urine Mucus Trace Urine Other Few Renal Ur Culture Indicated? No/Sq. Contamination Urine Glucose Negative COVID-19 Source SARS-CoV-2 (PCR) Influenza Type A (PCR) Influenza Type B (PCR) RSV (PCR) Last Vital Signs Temp 37.8 C H 05/17/24 11:10 Pulse 94 H 05/17/24 15:46 Resp 24 05/17/24 15:46 BP 125/67 05/17/24 15:46 Pulse Ox 92 05/17/24 15:40 Time Spent Time spent with Patient: >75 minutes Time was spent: preparing to see the patient(eg.review tests), obtaining and/or reviewing separately otained hiistory, ordering medications,tests, procedures, referring, communicating with other health hospice care consultant, indepentently interpreting results, counseling the patient and care coordination
--- NOTE | 2024-05-17 17:52 | W.PC.ACHO ---
Registration Status: Primary Language: Preferred Language: ED Information & Data Chief Complaint SOB 05/17/24 13:38 Triage Note pt [facility] a [facility]. has been in bed all week due to left hip pain from fx. oxygen sats in 70's this morning on 1 liter. oxygen user prn at 1 lpm. mid to upper 90's on 2 liters. concern for pneumonia. does have a fever at 101.5f. productive cough with green phlegm started today. Medical / Surgical History (Last Reviewed 05/17/24 @ 17:42 by Audie Richmond) Frequent falls Alcohol withdrawal NSIP (nonspecific interstitial pneumonia) Fracture of right inferior pubic ramus Fracture of right superior pubic ramus ACP (advance care planning) Laceration of skin of right forearm Skin ulcer of lower leg Laceration of arm, right, complicated Fractured pelvis T12 compression fracture Acute exacerbation of chronic low back pain Fall Person living alone (09/22/14) Hiatal hernia IBS (irritable bowel syndrome) Hypertension Allergic rhinitis GERD (gastroesophageal reflux disease) DJD (degenerative joint disease) Hyperlipidemia Hypercholesterolemia Fibromyalgia Depression Anemia Alcohol abuse Insomnia (Last Reviewed 05/17/24 @ 17:42 by Audie Richmond) Tonsillectomy and adenoidectomy Repair fracture right wrist ORIF right ankle Colonoscopy - MAC (11/18/16) Arthroplasty of knee Most Recent Vital Signs Temperature 37.8 C H 05/17/24 11:10 Temperature Source Oral 05/17/24 11:10 Pulse 94 H 05/17/24 15:46 Pulse 103 H 05/17/24 15:46 Respiratory Rate 24 05/17/24 15:46 Respiratory Effort Short of Breath 05/17/24 12:18 Respiratory Depth Normal 05/17/24 12:18 Respiratory Pattern Normal 05/17/24 12:18 Blood Pressure 125/67 05/17/24 15:46 Blood Pressure Mean 89 05/17/24 15:46 Pulse Oximetry 92 05/17/24 15:40 Oxygen Delivery Method Nasal Cannula 05/17/24 11:10 Oxygen Flow Rate 2 05/17/24 11:10 Pain Level 10 05/17/24 11:10 Comment hip pain with movement oriented to person and place 05/17/24 11:10 Allergies fentanyl Adverse Reaction (Verified 05/17/24 11:23) Nausea Active Medications Generic Name Dose Route Start Last Admin Trade Name Freq PRN Reason Stop Dose Admin Sodium Chloride 50 ml 05/17/24 14:30 05/17/24 14:21 Normal Saline - Diluent 50 Ml Vial IJ 50 ml .FOR DI USE MARI Administration IV IV Catheter Type [Right Saline Lock Antecubital] IV Catheter Gauge [Left 20 Antecubital] IV Catheter Gauge [Right 18 Antecubital] Diet Orders Category Date Time Status Regular/Normal [DIET] Nutrition 05/17/24 Dinner Active Diagnostics 05/17/24 05/17/24 05/17/24 Range/Units 15:35 14:12 11:48 WBC (4.4-10.8) 10^3/uL RBC (3.93-5.22) 10^6/uL Hgb (11.2-15.7) g/dL Hct (36.0-46.0) % MCV (80-95) fL MCH (27.0-33.0) pg MCHC (32.0-36.0) % RDW (11.7-14.6) % Plt Count (130-400) 10^3/uL MPV (8.0-11.0) fL Immature Gran % % Neutrophils % % Lymphocytes % % Monocytes % % Eosinophils % % Basophils % % Nucleated RBC % (0.0-0.3) % Absolute Neutrophils (1.2-6.7) 10^3/uL Absolute Lymphocytes (1.2-3.4) 10^3/uL Absolute Monocytes (0.1-0.8) 10^3/uL Absolute Eosinophils (0.0-0.7) 10^3/uL Absolute Basophils (0.0-0.2) 10^3/uL VBG pH (7.31-7.41) VBG pCO2 (41-51) mmHg VBG pO2 mmHg VBG HCO3 (23-28) mmol/L VBG Total CO2 (24-29) mmol/L VBG O2 Saturation % VBG Base Excess (-2-3) mmol/L VBG Lactate Cancelled (0.6-1.4) mmol/L Sodium 138 (136-145) mmol/L Potassium 4.3 (3.5-5.1) mmol/L Chloride 102 (98-107) mmol/L Carbon Dioxide 31.7 (21.0-32.0) mmol/L Anion Gap 4.3 (3-11) mmol/L BUN 9 (7-18) mg/dL Creatinine 0.6 (0.55-1.02) mg/dL Est GFR (CKD-EPI 2020) 89.01 (mL/min/1.73m2) Glucose 109 H (74-106) mg/dL Calcium 9.1 (8.5-10.1) mg/dL Magnesium 1.8 (1.8-2.4) mg/dL Total Bilirubin 0.49 (0.2-1.0) mg/dL AST 21 (15-37) U/L ALT 16 (14-59) U/L Alkaline Phosphatase 132 H (46-116) U/L Troponin I 5 4 (<or=51) ng/L Total Protein 6.8 (6.4-8.2) g/dL Albumin 2.4 L (3.4-5.0) g/dL Procalcitonin < 0.1 ng/mL Urine Color Yellow (Yellow) Urine Clarity Clear (Clear) Urine pH 5.5 (5-8) Ur Specific [place] >= 1.030 H (1.005-1.025) Urine Protein Trace (Neg-Trace) mg/dL Urine Ketones 40 H (Negative) mg/dL Urine Blood Negative (Negative) Urine Nitrite Negative (Negative) Urine Bilirubin Negative (Negative) Urine Urobilinogen 0.2 (Up to 0.2) mg/dL Ur Leukocyte Esterase Small H (Negative) Urine RBC 0-2 (0-2) HPF Urine WBC 5-10 (0-5) HPF Ur Epithelial Cells Moderate (Negative) HPF Urine Crystals Negative (Negative) HPF Urine Bacteria Few (Negative) HPF Urine Casts 3-5 Hyaline (Negative) LPF Urine Mucus Trace (Negative) Urine Other Few Renal (Negative) Ur Culture Indicated? No/Sq. Contamination Urine Glucose Negative (Negative) mg/dL COVID-19 Source SARS-CoV-2 (PCR) (Negative) Influenza Type A (PCR) (Negative) Influenza Type B (PCR) (Negative) RSV (PCR) (Negative) 05/17/24 05/17/24 Range/Units 11:48 11:45 WBC 10.30 (4.4-10.8) 10^3/uL RBC 3.87 L (3.93-5.22) 10^6/uL Hgb 11.2 (11.2-15.7) g/dL Hct 35.8 L (36.0-46.0) % MCV 93 (80-95) fL MCH 28.9 (27.0-33.0) pg MCHC 31.3 L (32.0-36.0) % RDW 14.0 (11.7-14.6) % Plt Count 201 (130-400) 10^3/uL MPV 11.3 H (8.0-11.0) fL Immature Gran % 0.5 % Neutrophils % 81.3 % Lymphocytes % 4.8 % Monocytes % 12.1 % Eosinophils % 1.2 % Basophils % 0.1 % Nucleated RBC % 0.0 (0.0-0.3) % Absolute Neutrophils 8.38 H (1.2-6.7) 10^3/uL Absolute Lymphocytes 0.49 L (1.2-3.4) 10^3/uL Absolute Monocytes 1.25 H (0.1-0.8) 10^3/uL Absolute Eosinophils 0.12 (0.0-0.7) 10^3/uL Absolute Basophils 0.01 (0.0-0.2) 10^3/uL VBG pH 7.36 (7.31-7.41) VBG pCO2 60 H (41-51) mmHg VBG pO2 30 mmHg VBG HCO3 34 H (23-28) mmol/L VBG Total CO2 32 H (24-29) mmol/L VBG O2 Saturation 55 % VBG Base Excess 8 H (-2-3) mmol/L VBG Lactate 0.7 (0.6-1.4) mmol/L Sodium (136-145) mmol/L Potassium (3.5-5.1) mmol/L Chloride (98-107) mmol/L Carbon Dioxide (21.0-32.0) mmol/L Anion Gap (3-11) mmol/L BUN (7-18) mg/dL Creatinine (0.55-1.02) mg/dL Est GFR (CKD-EPI 2020) (mL/min/1.73m2) Glucose (74-106) mg/dL Calcium (8.5-10.1) mg/dL Magnesium (1.8-2.4) mg/dL Total Bilirubin (0.2-1.0) mg/dL AST (15-37) U/L ALT (14-59) U/L Alkaline Phosphatase (46-116) U/L Troponin I (<or=51) ng/L Total Protein (6.4-8.2) g/dL Albumin (3.4-5.0) g/dL Procalcitonin ng/mL Urine Color (Yellow) Urine Clarity (Clear) Urine pH (5-8) Ur Specific [place] (1.005-1.025) Urine Protein (Neg-Trace) mg/dL Urine Ketones (Negative) mg/dL Urine Blood (Negative) Urine Nitrite (Negative) Urine Bilirubin (Negative) Urine Urobilinogen (Up to 0.2) mg/dL Ur Leukocyte Esterase (Negative) Urine RBC (0-2) HPF Urine WBC (0-5) HPF Ur Epithelial Cells (Negative) HPF Urine Crystals (Negative) HPF Urine Bacteria (Negative) HPF Urine Casts (Negative) LPF Urine Mucus (Negative) Urine Other (Negative) Ur Culture Indicated? Urine Glucose (Negative) mg/dL COVID-19 Source Nasopharynx SARS-CoV-2 (PCR) Negative (Negative) Influenza Type A (PCR) Negative (Negative) Influenza Type B (PCR) Negative (Negative) RSV (PCR) Negative (Negative) 05/17/24 14:45 Sputum Culture - Pending Sputum - Expectorated Gram Stain - Pending 05/17/24 12:35 Blood Culture - Pending Blood 05/17/24 11:49 Blood Culture - Pending Blood Intake and Output - 24 Hour Total 05/17/24 11:08 thru 05/17/24 15:49 Intake Total 1265.000 Balance 1265.000 Weight 85.9 kg Intake: IV 1265.000 Falls Risk Assessment History of Falls No History 05/17/24 12:18 Contributing Factors No Factors 05/17/24 12:18 Ambulatory Aids Independent 05/17/24 12:18 Tubes/Lines None 05/17/24 12:18 Gait Evaluation No gait disturbance 05/17/24 12:18 Cognition No cognitive impairment 05/17/24 12:18 Fall Total Score 0 05/17/24 12:18 Level of Risk Standard/Low Risk 05/17/24 12:18 Problems (Last Reviewed 05/17/24 @ 17:42 by Audie Richmond) Sepsis (Acute) DVT prophylaxis (Acute) Acute on chronic respiratory failure with hypoxia and hypercapnia (Acute) Non-sustained ventricular tachycardia (Acute) Palliative care patient (Acute) v v v v v v v v v Sending and/or Receiving Nurses: Please use comment section below to note any information pertinent to the patient hand-off not included above. Information / Comments: pneumonia, sepsis alert, extensive med history Report received from:[facility]
[2024-05-17] MEDS: Normal Saline Flush 10 ML SYR IVP ×2 (19:52→20:28)
[2024-05-17] MEDS: methylPREDNISolone SUCC 125 MG VIAL IVP (19:53)
[2024-05-17] MEDS: Magnesium Gluconate 500 MG TAB PO (19:53)
[2024-05-17] MEDS: Potassium Chloride 20 MEQ TABCR PO (19:54)
[2024-05-17] MEDS: Omeprazole 20 MG CAPCR PO (19:54)
[2024-05-17] MEDS: DULoxetine 30 MG CAP 60 MG PO (19:54)
[2024-05-17] MEDS: Pregabalin 25 MG CAP 75 MG PO (19:54)
[2024-05-17] MEDS: Midodrine 2.5 MG TAB 5 MG PO (19:54)
[2024-05-17] MEDS: traZODone 100 MG TAB 200 MG PO (19:54)
[2024-05-17] MEDS: QUEtiapine 50 MG TAB PO (20:27)
[2024-05-17] MEDS: Enoxaparin 40 MG/0.4 ML SYR SC (20:29)
[2024-05-17] MEDS: Albuterol/Ipratropium 3 ML UPD VIAL UPD (20:29)
[2024-05-17] MEDS: HYDROmorphone 2 MG TAB 1 MG PO (20:30)
[2024-05-18] VITALS (10 sets, daily range): BP systolic 87–138; BP diastolic 52–76; PULSE 71–98; RESP 5–19; TEMP 36–36.7; O2SAT 90–95
[2024-05-18] MEDS: VANCOMYCIN/WATER (PEG) 1.5 GM/300 ML BAG IVPB (05:55)
[2024-05-18] MEDS: methylPREDNISolone SUCC 125 MG VIAL 80 MG IVP ×3 (05:55→21:36)
[2024-05-18 06:57] LABS: BE (Venous) 4 mmol/L (-2-3); HCO3 (Venous) 29 mmol/L (23-28); O2 Sat (Venous) 91 %; TCO2 (Venous) 27 mmol/L (24-29); pCO2 (Venous) 49 mmHg (41-51); pH (Venous) 7.39 (7.31-7.41); pO2 (Venous) 67 mmHg
[2024-05-18 07:00] LABS: Abs Immature Grans 0.01 10^3/uL (0.0-0.06); Absolute Basophil Count 0.01 10^3/uL (0.0-0.2); Absolute Lymphocyte Count 0.52 10^3/uL (1.2-3.4); Absolute Monocyte Count 0.12 10^3/uL (0.1-0.8); Absolute Neutrophil Count 4.59 10^3/uL (1.2-6.7); Basophils % 0.2 %; HCT 33.2 % (36.0-46.0); HGB 10.8 g/dL (11.2-15.7); Immature Grans % 0.2 %; Lymphocytes % 9.9 %; MCH 29.3 pg (27.0-33.0); MCHC 32.5 % (32.0-36.0); MCV 90 fL (80-95); MPV 11.3 fL (8.0-11.0); Monocytes % 2.3 %; Neutrophils % 87.4 %; Platelet Count 220 10^3/uL (130-400); RBC 3.69 10^6/uL (3.93-5.22); RDW 14.1 % (11.7-14.6); RDW-SD 46.6 fL; WBC 5.25 10^3/uL (4.4-10.8)
[2024-05-18 07:16] LABS: Anion Gap 5.6 mmol/L (3-11); BUN 10 mg/dL (7-18); CO2 28.4 mmol/L (21.0-32.0); CREATININE 0.5 mg/dL (0.55-1.02); Calcium 8.9 mg/dL (8.5-10.1); Chloride 103 mmol/L (98-107); Glucose 134 mg/dL (74-106); Potassium 4.3 mmol/L (3.5-5.1); Sodium 137 mmol/L (136-145)
[2024-05-18 07:32] LABS: Iron 17 ug/dL (50-170); Total Iron Binding Capacity 65 ug/dL (250-450); Transferrin Sat 26 % (15-50)
[2024-05-18] MEDS: Polyethylene Glycol 3350 17 GM PACKET PO (08:34)
[2024-05-18] MEDS: Calcitonin-Salmon, Synthetic 3.7 ML BTL NS (08:35)
[2024-05-18] MEDS: Fluticasone NASAL SPRAY 16 GM BTL NS ×2 (08:35→21:12)
[2024-05-18] MEDS: Magnesium Gluconate 500 MG TAB PO ×2 (08:38→21:10)
[2024-05-18] MEDS: DULoxetine 30 MG CAP 60 MG PO ×2 (08:38→21:11)
[2024-05-18] MEDS: Midodrine 2.5 MG TAB 5 MG PO ×3 (08:39→21:11)
[2024-05-18] MEDS: Omeprazole 20 MG CAPCR PO ×2 (08:39→21:11)
[2024-05-18] MEDS: Vitamins B Comp w/C TAB 1 TAB PO (08:39)
[2024-05-18] MEDS: Pregabalin 25 MG CAP 75 MG PO ×3 (08:39→21:59)
[2024-05-18] MEDS: Potassium Chloride 20 MEQ TABCR PO ×3 (08:40→21:11)
[2024-05-18] MEDS: Multivitamin TAB 1 TAB PO (08:40)
[2024-05-18] MEDS: Sucralfate 1 GM TAB PO ×4 (08:40→21:11)
[2024-05-18] MEDS: Ferrous Sulfate 325 MG TAB PO (08:40)
[2024-05-18] MEDS: Montelukast 10 MG TAB PO (08:40)
[2024-05-18] MEDS: Loratidine 10 MG TAB PO (08:40)
[2024-05-18] MEDS: medroxyPROGESTERone 5 MG TAB 2.5 MG PO (09:23)
--- NOTE | 2024-05-18 11:14 | IN_ITS ---
PT Notes Visit Reasons: community acquired pneumonia, sepsis Physical Therapy Inpatient Initial Evaluation Date: 05/18/2024 Referring Doctor: Dr. Richmond PT Orders: PT CONSULT: evaluation and treatment Precautions: Fall. Standard. admitted for pneumonia, bedbound since December with failed hip repair Patient Profile/Admitting Diagnosis: 83 yo F with history of ILD, resident of [facility] since December 2023 when she fell and broke her hip and never regained the ability to walk. Chronic pain on opioids, who was sent from the [facility] with increasing cough and fever. Admitted for management of pneumonia. Social History/Home Situation: Resident of the [facility]. Per patient report, she had tolerated Rod lift to the chair daily until last week, when her left hip pain got out of control. She does not participate in bed mobility or transfers, but does perform UE exercises while sitting in chair. Subjective:? Elvi states that she is not able to do much, and is fearful of increasing hip pain. She declines bed mobility or attempts to transfer edge of bed. Objective:?? General Observation: Supine in bed. O2 supp via NC. IV in RUE. Mental Status: Alert and oriented x 4 Pain: left hip pain with all movement ? ROM: Right Upper Extremity: Tolerates shoulder flexion to 150*. Shoulder ER to neutral, IR allows hand to abdomen. Elbow motion WFL. Left Upper Extremity: Tolerates shoulder flexion to 140*. Shoulder ER to neutral, IR allows hand to abdomen. Elbow motion allows flexionto 110*, full extension. Right Lower Extremity: Active hip flexion to 80*. Long lever IR/ER of the hip is WFL. Knee extension 0*, flexion to 110* actively. Ankle DF to neutral actively. Left Lower Extremity: Agrees to assessment of AROM. Long lever hip IR/ER allows 20* arc of motion. Knee flexion to 30* limited by hip pain. Knee extension 0*. Ankle DF to neutral. Strength: Right Upper Extremity: 3/5 shoulder flexion and abduction.? 4/5 bicep and tricep.? Wrist flexion and extension 4+/5.? Good radio television technical director strength Left Upper Extremity: 4/5 shoulder flexion and abduction, 4/5 bicep and tricep.? Wrist extension and flexion 4+/5.? Good radio television technical director. Right Lower Extremity: Functionally able to perform small range SLR and heel slide. Ankle DF 3/5 or greater. Left Lower Extremity: Good quad activation with quad setting. Ankle DF 3/5 or greater. Sensation:? Patient reports intact sensation as to pain and light touch throughout bilateral lower extremities. Bed Mobility/Transfers: Patient declines. Rod transfer at baseline. Gait:? non-ambulatory Balance:? Static Sitting: unable Dynamic Sitting: unable Static Standing: ? unable Dynamic Standing: Unable to Special Tests: Mobility Limitations Standardized Measure [facility] AM-PAC 6 clicks Basic Mobility Inpatient Short Form: Raw Score: 7? CMS Score: 92% impairment ? ? Informed Consent/Education:? Patient instructed in purpose of PT consult and plan of care. Instructed in bed exercises with written instructions on white board: Ankle pumps 10x per hour quad sets 10x per hour glute sets 10x per hour ASSESSMENT:?? Patient admitted for medical management of pneumonia, in the presence of chronic mobility impairments due to collapsed hip fx on the left. She is chronically managed by Dr. Lucia, and has not tolerated weight bearing for several months. She is now residing at the [facility] and requires Rod lift transfer at baseline. PT goals will reflect this, with goals established to improve tolerance to bed mobility and positioning in chair. Patient presents with clinical signs and symptoms consistent with current/admitting diagnoses that have resulted to mobility limitations, gait instability, generalized weakness, and overall ADL decline as demonstrated by the following impairment level findings: 1. Decreased strength to B UE/LE major muscle groups as before 2. poorly managed pain 3. Impaired activity tolerance 4. High pain level and high anticipation of pain, high anxiety 5. decreased ROM LLE Impairments are contributing to the following functional limitations: 1. Decline in bed mobility skills 2. Decline in transfer skills 3. non-ambulatory 4. unable to participate in bed mobility Patient is assessed as a 55402 high complexity based on the following: History: 83-year-old female with past medical history as indicated above Examination: Demonstrable impairment in strength, balance, and mobility level with underlying impairments and functional limitations as exhibited above as well as deficit score of 92% utilizing the [facility] Mobility Inpatient Short Form Presentation: Evolving Decision Makin moderate complexity Goals: Goals X1 week 1. Supine-Sit: moderate A 2. Sit-Supine: moderate A 3. sit EOB mod A 4. transfer to chair max A with Rod lift ? Plan of Care/Treatment Plan: 1-2x/day, 7 days/week x 1 week. Plan of care has been reviewed with the [employer]ER providing the service under Physical Therapy direction. Initiate Physical Therapy intervention for strengthening, bed mobility, transfers, gait, stairs, balance training, use of assistive device.? DISCHARGE RECOMMENDATIONS:? [] Home with no services [] [] Home with services [specify] [] Home with outpatient PT [] [X] SNF for continued rehabilitation. [] Dramatic Director Care [] [] SNF versus LTC based on ability to participate and progress [] TREATMENT CODE/TIME: 79933 x 15 minutes for 1 unit ([id number]). Thank you for the opportunity to participate in the care of this patient. Shraddha Muñoz PT, DPT [facility] All Active Problems Sepsis (Acute) DVT prophylaxis (Acute) Acute on chronic respiratory failure with hypoxia and hypercapnia (Acute) Non-sustained ventricular tachycardia (Acute) Respiratory failure (Acute) Pneumonia (Acute) Chronic hypoxic respiratory failure (Acute) Displaced intertrochanteric fracture of left femur, subsequent encounter for closed fracture with malunion (Acute) Pain due to internal orthopedic prosthetic device (Acute) Lung disease (Acute) Left hip pain (Acute) Cough (Acute) Interstitial lung disease (Acute) secondary to chronic aspiration Seasonal allergies (Acute) Intertrochanteric fracture of left femur (Acute) S/P IM FIXATION 01/01/24 Skin ulcer (Acute) Palliative care patient (Acute) DNR (do not resuscitate) (Acute) E. 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 fell down and could not get up Morbid obesity (Chronic) Allergic rhinitis (Chronic) Hyperlipidemia (Chronic) Fibromyalgia (Chronic) DJD (degenerative joint disease) (Chronic) Insomnia (Chronic) Gastroesophageal reflux disease (Chronic) Hiatal hernia (Chronic) Irritable bowel syndrome (Chronic) History of surgery (Chronic) a. S/P open right ankle fracture/dislocation. b. Left knee arthroscopy. c. Right wrist fracture repair. d. T/A as a child. Dehydration, mild (Acute 09/22/14) Housing or economic circumstance (Chronic 09/22/14) a. No heat for 1-1/2 days H/O fall (Chronic) Anemia (Chronic) Alcohol withdrawal delirium (Acute 09/22/14) Rhabdomyolysis (Acute 09/22/14) Ataxia (Chronic) Onychomycosis (Chronic) Depression (Chronic) Medical History Frequent falls Alcohol withdrawal NSIP (nonspecific interstitial pneumonia) Fracture of right inferior pubic ramus Fracture of right superior pubic ramus ACP (advance care planning) Laceration of skin of right forearm Skin ulcer of lower leg Laceration of arm, right, complicated Fractured pelvis T12 compression fracture Acute exacerbation of chronic low back pain Fall Hiatal hernia IBS (irritable bowel syndrome) Hypertension Allergic rhinitis GERD (gastroesophageal reflux disease) DJD (degenerative joint disease) Hyperlipidemia Hypercholesterolemia Fibromyalgia Depression Anemia Alcohol abuse Insomnia Person living alone (09/22/14) Surgical History Tonsillectomy and adenoidectomy Repair fracture right wrist ORIF right ankle Colonoscopy - MAC (11/18/16) Arthroplasty of knee left
[2024-05-18] MEDS: cefTRIAXone 2 GM/50 ML BAG IVPB (11:36)
[2024-05-18] MEDS: Albuterol/Ipratropium 3 ML UPD VIAL UPD ×2 (11:53→17:54)
--- NOTE | 2024-05-18 12:59 | PHA.REVIEW2 ---
Pharmacy Admission Review Admission Clinical Review Admission Pharmacy Review: Sepsis (Acute) DVT prophylaxis (Acute) Acute on chronic respiratory failure with hypoxia and hypercapnia (Acute) Non-sustained ventricular tachycardia (Acute) Palliative care patient (Acute) fentanyl Adverse Reaction (Verified 05/17/24 11:23) Nausea Resuscitation Status DNI Height 5 ft 7 in Weight 86.5 kg Pharmacy Admission Review Renal Dosing Renal Dosing: BUN 10 mg/dL (7-18) 05/18/24 06:49 Creatinine 0.5 mg/dL (0.55-1.02) L 05/18/24 06:49 Medications needing adjustments: Reviewed (CrCl 48.15 mL/min) List of meds needing interventions: Current medications are okay Anticoagulation Anticoagulation: Hgb 10.8 g/dL (11.2-15.7) L 05/18/24 06:49 Hct 33.2 % (36.0-46.0) L 05/18/24 06:49 Plt Count 220 10^3/uL (130-400) 05/18/24 06:49 Creatinine 0.5 mg/dL (0.55-1.02) L 05/18/24 06:49 DVT Prophylaxis: Reviewed (Hgb decreased from 11.2) Medications: Enoxaparin (40mg daily) Opiate Usage Evaluate Pain Scale/Pains Meds: Reviewed (Has order for hydromorphone 2mg HS and morphine CR 30mg BID) Scheduled Bowel Reg ordered if on Opiates?: Yes (Miralax w/ PRN bisacodyl) Relevant Labs Relevant Labs: Sodium 137 mmol/L (136-145) 05/18/24 06:49 Potassium 4.3 mmol/L (3.5-5.1) 05/18/24 06:49 Chloride 103 mmol/L (98-107) 05/18/24 06:49 Magnesium 1.8 mg/dL (1.8-2.4) 05/17/24 11:48 Electrolytes, C-Reactive P, ESR: Reviewed Cardiac Review Cardiac Review: Troponin I 5 ng/L (<or=51) 05/17/24 15:35 BP, HR, EF%: Reviewed (BP WNL, HR 98) List meds needing interventions: Has order for midodrine 5mg TID QTc Review QTc: Reviewed (446 from 05/17/24) IV to PO Switch IV Medications: Reviewed (ceftriaxone, doxycycline, methylprednisolone and vancomycin) Home Meds Home Med List reviewed: Intervened Relevent Home Meds Not ordered & why?: Vitamin C, vitamin D3, Neuriva (on hold per provider) and ginkgo biloba Changed following to patients own orders: glucosamine, vitamin E 45mg, Vitamin A 2400mcg and zinc acetate 25mg. Provider and nursing aware that these would need to be brought in for the patient if they want to take them while inpatient. Current Meds Current Medication Order Review: Intervened Comments: Checked patients pain medications on [facility]. Hydromorphone was on home med list as 1mg daily but prescription was filled as hydromorphone 2mg tablet 30 tabs for 30 days. Morphine was on home med list as 300mg TID but prescription was last filled for 10 tabs for 5 days. Updated home med list and spoke with provider. Provider changed orders to match. Pharmacy Antibiotic Review Relevant Labs: WBC 5.25 10^3/uL (4.4-10.8) 05/18/24 06:49 Procalcitonin < 0.1 ng/mL 05/17/24 11:48 Temperature 36.7 C Temperature 36.2 C Temperature 36.0 C Microbiology 05/17/24 14:45 Sputum Culture - Preliminary Sputum - Expectorated Normal Cristina Gram Stain - Final 05/17/24 11:49 Blood Culture - Preliminary Blood Gram Positive Cocci Pharmacy Antibiotic Activity: C/S review and Reviewed, no change Comments: Patient is on ceftriaxone, doxycycline and vancomycin, day 1, for CAP/sepsis. Vancomycin level obtained today at 1157. Based on level, will continue current dose of 1000mg q12h with predicted AUC of 558 and trough of 17.2. Will reorder level if there are any changes in renal function. Patient has been afebrile since yesterday at 1955.
[2024-05-18] MEDS: DOXYCYCLINE 100 MG in Normal Saline 100 ML IVPB (13:06)
--- NOTE | 2024-05-18 13:21 | PGE_ITS ---
Date of Service Date of service: 05/18/24 Time of Service: 13:21 Assessment and Plan Assessment and plan (1) Community acquired pneumonia: Status: Acute Assessment and plan: Continue ceftriaxone and doxycycline. Has baseline ILD, history of chronic aspiration per record. Get swallow study when available, though not clearly aspirating clinically so allowing her to eat. Treat with steroids along with antibiotics. Blood and sputum culture pending Qualifiers: Laterality: unspecified laterality Qualified Code(s): J18.9 - Pneumonia, unspecified organism (2) Acute on chronic respiratory failure with hypoxia and hypercapnia: Status: Acute Assessment and plan: Acute on chronic, associated with pneumonia and ILD exacerbation. Some chronic CO2 retention, but worse on admission VBG, improved this morning. Respiratory status has stabilized on 2L O2 via NC. Follow. (3) Sepsis: Status: Acute Assessment and plan: Meets criteria with tachycardia and tachypnea, also fever 101.5 at SNF with pulmonary source. Antibiotics as above, cultures pending. Qualifiers: Sepsis type: sepsis due to unspecified organism Sepsis acute organ dysfunction status: without acute organ dysfunction Qualified Code(s): A41.9 - Sepsis, unspecified organism (4) Non-sustained ventricular tachycardia: Status: Acute Assessment and plan: Looked monomorphic so given magnesium. QTc okay. Case reviewed with [facility] cardiology in the ED and no medicaitons recommended, tele monitoring. No recurrence (5) Anemia: Assessment and plan: Improved. Was high dose iron. Recheck levels with trans sat 26%, can stop iron. Qualifiers: Anemia type: iron deficiency Iron deficiency anemia type: chronic blood loss Qualified Code(s): D50.0 - Iron deficiency anemia secondary to blood loss (chronic) (6) Hypotension: Status: Resolved Assessment and plan: chronically on midodrine. MAPs >65 while here. No signs of acute hypotension a/w sepsis. Continue midodrine. Qualifiers: Hypotension type: hypotension due to hypovolemia Qualified Code(s): E86.1 - Hypovolemia (7) Palliative care patient: Status: Acute Assessment and plan: h/o DNR/DNI now requeting full code. Will consult palliative. (8) Intertrochanteric fracture of left femur: Status: Acute Assessment and plan: mobility severely limited since failed repair. Ortho consult reviewed, considering surgery possibly at [facility]. She would like to understand plan, but no ortho on this weekend. Qualifiers: Encounter type: initial encounter Fracture type: closed Fracture alignment: displaced Qualified Code(s): S72.142A - Displaced intertrochanteric fracture of left femur, initial encounter for closed fracture (9) DVT prophylaxis: Status: Acute Assessment and plan: enoxaparin Subjective Subjective Patient reports: feels better and tolerating a regular diet; denies nausea, vomiting or fever Interval history since last seen: Feeling a lot better, though still a little short of breath. She is starting to eat. Wishes she could get the same level of care at the [facility]. Appreciates seeing PT. Her pain is okay now, but she is interested in surgery if possible. Exam Narrative Exam Narrative: GEN: Alert and oriented x 4, pleasant and cooperative, gives vague and limited history. No acute distress at rest. LUNGS: wet rhonchi from mid to lower right lung field sparing apex, slight expiratory wheezes on the left. CV: RRR with no murmurs, gallops, or rubs. ABD: active bowel sounds, soft, nontender and nondistended. No masses. EXT: no cyanosis, clubbing, or edema. Feet warm. Objective Last Vital Signs Temp 36.7 C 05/18/24 11:50 Pulse 98 H 05/18/24 11:53 Resp 19 05/18/24 11:50 BP 109/60 05/18/24 11:50 Pulse Ox 94 05/18/24 11:53 Laboratory Results - last 24 hr 05/17/24 05/17/24 05/18/24 14:12 15:35 06:49 WBC 5.25 RBC 3.69 L Hgb 10.8 L Hct 33.2 L MCV 90 MCH 29.3 MCHC 32.5 RDW 14.1 Plt Count 220 MPV 11.3 H Immature Gran % 0.2 Neutrophils % 87.4 Lymphocytes % 9.9 Monocytes % 2.3 Eosinophils % 0.0 Basophils % 0.2 Nucleated RBC % 0.0 Absolute Neutrophils 4.59 Absolute Lymphocytes 0.52 L Absolute Monocytes 0.12 Absolute Eosinophils 0.00 Absolute Basophils 0.01 VBG pH 7.39 VBG pCO2 49 VBG pO2 67 VBG HCO3 29 H VBG Total CO2 27 VBG O2 Saturation 91 VBG Base Excess 4 H Sodium 137 Potassium 4.3 Chloride 103 Carbon Dioxide 28.4 Anion Gap 5.6 BUN 10 Creatinine 0.5 L Est GFR (CKD-EPI 2020) 93.00 Glucose 134 H Calcium 8.9 Iron 17 L TIBC 65 L Transferrin % Sat 26 Troponin I 5 Urine Color Yellow Urine Clarity Clear Urine pH 5.5 Ur Specific Sumner >= 1.030 H Urine Protein Trace Urine Ketones 40 H Urine Blood Negative Urine Nitrite Negative Urine Bilirubin Negative Urine Urobilinogen 0.2 Ur Leukocyte Esterase Small H Urine RBC 0-2 Urine WBC 5-10 Ur Epithelial Cells Moderate Urine Crystals Negative Urine Bacteria Few Urine Casts 3-5 Hyaline Urine Mucus Trace Urine Other Few Renal Ur Culture Indicated? No/Sq. Contamination Urine Glucose Negative Random Vancomycin 05/18/24 11:57 WBC RBC Hgb Hct MCV MCH MCHC RDW Plt Count MPV Immature Gran % Neutrophils % Lymphocytes % Monocytes % Eosinophils % Basophils % Nucleated RBC % Absolute Neutrophils Absolute Lymphocytes Absolute Monocytes Absolute Eosinophils Absolute Basophils VBG pH VBG pCO2 VBG pO2 VBG HCO3 VBG Total CO2 VBG O2 Saturation VBG Base Excess Sodium Potassium Chloride Carbon Dioxide Anion Gap BUN Creatinine Est GFR (CKD-EPI 2020) Glucose Calcium Iron TIBC Transferrin % Sat Troponin I Urine Color Urine Clarity Urine pH Ur Specific Sumner Urine Protein Urine Ketones Urine Blood Urine Nitrite Urine Bilirubin Urine Urobilinogen Ur Leukocyte Esterase Urine RBC Urine WBC Ur Epithelial Cells Urine Crystals Urine Bacteria Urine Casts Urine Mucus Urine Other Ur Culture Indicated? Urine Glucose Random Vancomycin 15.0 Time Spent with Patient Time Spent with Patient: 35-49 minutes Time was spent: preparing to see the patient(eg.review tests), obtaining and/or reviewing separately otained hiistory, ordering medications,tests, procedures, referring, communicating with other health account executive healthcare, indepentently interpreting results, counseling the patient and care coordination
--- NOTE | 2024-05-18 16:11 | INITIAL_ITS ---
Date of service: 05/18/24 Time of Service: 14:00 Care Management Initial Assmt Initial Assessment Reason for Hospitalization: pneumonia, sepsis Functional Status/Living Situation Patient Presentation: Elvi was sitting up in the bed when CM met with her today. She was wearing nc O2, but seemed to be breathing comfortably. She was noted to have a wet cough, and stated that she is finally able to bring some stuff up, and she is starting to feel a bit better. She was pleasant and engaging. Elvi was admitted from [facility] yesterday, for pneumonia and sepsis. Elvi has been residing at the [facility] since December, when she fractured her hip and went there for rehab. She has not had a very good recovery course and is not capable of living at home at this time. Elvi is not thrilled with her care at [facility], but realizes she is not capable of returning home at this time. Town of Residence: [facility]. Has a house in [place] that she was previously living alone in. Resides with: Other (lives in [facility]. Was living alone prior to her hip fracture in 01/11) Significant Other/Family: Out of area (SisterMarzena is her HCA. 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 She requires support in all aspects that require ambulation or standing.) with Dishes/food prep, Groceries, Laundry and Transportation Activities/Hobbies/SocialSupport: Has recently reconnected with an old friend. She likes to talk on the phone with her friend and sister. Medications Medication Management: No Issues/Barriers identified Physical Functioning/Mobility Assistive Device: wheel chair. Elvi has constant pain in her hip due to the break and poor healing. Advance Directives Advance Directives: 2 Do you have an Advance Directive: Y 04/11/16 11:50 AD On File at [facility]: Y 11/12/12 15:45 Date Asked 08/03/23 02/15/24 11:50 AD Date Reviewed 05/17/24 05/17/24 16:34 COLST On File at [facility] Yes 02/15/24 11:50 COLST Date Scanned 08/03/23 02/15/24 11:50 Code Status Resuscitation Status DNI Insurance Coverage/Financial Issues Insurance: Medicaid/Medicare Financial Issues: Denies Care Team Visit Care Team Role Provider Type Iesha Gibran Primary Care Provider NON-[facility] STAFF PHYSICIAN Cindy Hollis, UNDERGROUND HEAVY EQUIPMENT OPERATOR Other Providers SPEECH LANGUAGE PATHOLOGIST Prashant Ponce, UNDERGROUND HEAVY EQUIPMENT OPERATOR Other Providers SPEECH LANGUAGE PATHOLOGIST Bree Cabral Other Providers SPEECH LANGUAGE PATHOLOGIST Shalini Khan, UNDERGROUND HEAVY EQUIPMENT OPERATOR Other Providers SPEECH LANGUAGE PATHOLOGIST Romelia Ann, UNDERGROUND HEAVY EQUIPMENT OPERATOR Other Providers SPEECH LANGUAGE PATHOLOGIST Clifton Spear Other Providers OTHER [facility] Provider PHYSICIANS MAMMOGRAPHY TECHNOLOGIST Audie Richmond Admit Provider [facility] STAFF PHYSICIAN Attending Provider Discharge Potential Discharge Needs: PT Evaluation and PCP F/U Appt Anticipated Barriers to Discharge: None Identified Patient/Family Education Needs: Review discharge instructions, discuss Ask Me Three Transportation: RCT RCT Transportation: Wheel chair van Plan: Anticipate that Elvi will return to the [facility] once she is medically stable. She will f/u with her PCP and her discharge plan of care. She will transport via RCT in a wheelchair van. CM will continue to follow. 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 fell down and could not get up Morbid obesity (Chronic) Allergic rhinitis (Chronic) Hyperlipidemia (Chronic) Fibromyalgia (Chronic) DJD (degenerative joint disease) (Chronic) Insomnia (Chronic) Gastroesophageal reflux disease (Chronic) Hiatal hernia (Chronic) Irritable bowel syndrome (Chronic) History of surgery (Chronic) a. S/P open right ankle fracture/dislocation. b. Left knee arthroscopy. c. Right wrist fracture repair. d. T/A as a child. Dehydration, mild (Acute 09/22/14) Housing or economic circumstance (Chronic 09/22/14) a. No heat for 1-1/2 days H/O fall (Chronic) Anemia (Chronic) Alcohol withdrawal delirium (Acute 09/22/14) Rhabdomyolysis (Acute 09/22/14) Ataxia (Chronic) Onychomycosis (Chronic) Depression (Chronic) Medical History Frequent falls Alcohol withdrawal NSIP (nonspecific interstitial pneumonia) Fracture of right inferior pubic ramus Fracture of right superior pubic ramus ACP (advance care planning) Laceration of skin of right forearm Skin ulcer of lower leg Laceration of arm, right, complicated Fractured pelvis T12 compression fracture Acute exacerbation of chronic low back pain Fall Hiatal hernia IBS (irritable bowel syndrome) Hypertension Allergic rhinitis GERD (gastroesophageal reflux disease) DJD (degenerative joint disease) Hyperlipidemia Hypercholesterolemia Fibromyalgia Depression Anemia Alcohol abuse Insomnia Person living alone (09/22/14) Surgical History Tonsillectomy and adenoidectomy Repair fracture right wrist ORIF right ankle Colonoscopy - MAC (11/18/16) Arthroplasty of knee left Family History Mother Dementia Maternal Aunt Diabetes Social History Smoking/Tobacco Use Status: Former Tobacco Use Smoking risk assessment performed?: Yes Alcohol Intake: current Alcohol Intake frequency: 0-2 drinks per day Alcohol type: wine Counseling given: Yes Details: 1-2 bottle of wine/day Drug use: Daily Substance use type: does not use and marijuana Details: two tokes for sleep Housing: half-way Do you feel safe at home: Yes Do you feel safe in your relationship?: Yes Additional Social history: Lives alone in home in [place], has a cat. States hasn't been out of house for a year. One sister in [place] Readmission Within the Past 30 Days Yes or No: No SDOH(Care Management) Screening Will the Patient Participate in the Screening?: Yes Do you worry about having a steady place to live?: no Problems where you live: no known problems In the past 12 months, have you had to go without electric, gas, oil or water in your home?: no Have you or anyone in your house had to go without enough food to eat?: no Has lack of transportation kept you from medical appointments or from doing things needed for daily living?: no Has anyone in your support network made you feel unsafe for any reason?: no Social Determinants of Health Comments(SDOH Details): lives at [facility]
[2024-05-18] MEDS: VANCOMYCIN/WATER (PEG) 1 GM/200 ML BAG IVPB (16:24)
[2024-05-18] MEDS: Enoxaparin 40 MG/0.4 ML SYR SC (17:36)
[2024-05-18] MEDS: HYDROmorphone 2 MG TAB PO (21:09)
[2024-05-18] MEDS: traZODone 100 MG TAB 200 MG PO (21:11)
[2024-05-18] MEDS: QUEtiapine 50 MG TAB PO (21:11)
[2024-05-18] MEDS: Normal Saline Flush 10 ML SYR IVP (21:36)
[2024-05-19] VITALS (8 sets, daily range): BP systolic 100–119; BP diastolic 60–81; PULSE 65–103; RESP 2–17; TEMP 36.1–37.2; O2SAT 93–97
[2024-05-19] MEDS: DOXYCYCLINE 100 MG in Normal Saline 100 ML IVPB ×2 (00:19→13:20)
[2024-05-19] MEDS: Normal Saline Flush 10 ML SYR IVP ×2 (00:19→19:56)
[2024-05-19] MEDS: VANCOMYCIN/WATER (PEG) 1 GM/200 ML BAG IVPB ×2 (06:08→17:38)
[2024-05-19] MEDS: methylPREDNISolone SUCC 125 MG VIAL 80 MG IVP ×3 (06:15→22:00)
[2024-05-19] MEDS: Polyethylene Glycol 3350 17 GM PACKET PO (08:30)
[2024-05-19] MEDS: Magnesium Gluconate 500 MG TAB PO ×2 (08:31→19:55)
[2024-05-19] MEDS: Loratidine 10 MG TAB PO (08:31)
[2024-05-19] MEDS: Montelukast 10 MG TAB PO (08:31)
[2024-05-19] MEDS: Midodrine 2.5 MG TAB 5 MG PO ×3 (08:37→19:52)
[2024-05-19] MEDS: Multivitamin TAB 1 TAB PO (08:37)
[2024-05-19] MEDS: DULoxetine 30 MG CAP 60 MG PO ×2 (08:37→19:52)
[2024-05-19] MEDS: medroxyPROGESTERone 5 MG TAB 2.5 MG PO (08:37)
[2024-05-19] MEDS: Sucralfate 1 GM TAB PO ×4 (08:38→22:00)
[2024-05-19] MEDS: Omeprazole 20 MG CAPCR PO ×2 (08:38→19:55)
[2024-05-19] MEDS: Potassium Chloride 20 MEQ TABCR PO ×3 (08:38→19:55)
[2024-05-19] MEDS: Vitamins B Comp w/C TAB 1 TAB PO (08:38)
[2024-05-19] MEDS: Fluticasone NASAL SPRAY 16 GM BTL NS ×2 (08:40→20:12)
[2024-05-19] MEDS: Calcitonin-Salmon, Synthetic 3.7 ML BTL NS (08:40)
[2024-05-19 09:50] LABS: Abs Immature Grans 0.04 10^3/uL (0.0-0.06); Absolute Basophil Count 0.01 10^3/uL (0.0-0.2); Absolute Lymphocyte Count 0.73 10^3/uL (1.2-3.4); Absolute Monocyte Count 0.31 10^3/uL (0.1-0.8); Absolute Neutrophil Count 5.83 10^3/uL (1.2-6.7); Basophils % 0.1 %; HCT 36.1 % (36.0-46.0); HGB 11.4 g/dL (11.2-15.7); Immature Grans % 0.6 %; Lymphocytes % 10.5 %; MCH 28.9 pg (27.0-33.0); MCHC 31.6 % (32.0-36.0); MCV 91 fL (80-95); MPV 11.2 fL (8.0-11.0); Monocytes % 4.5 %; Neutrophils % 84.3 %; Platelet Count 255 10^3/uL (130-400); RBC 3.95 10^6/uL (3.93-5.22); RDW 14.1 % (11.7-14.6); RDW-SD 47.5 fL; WBC 6.92 10^3/uL (4.4-10.8)
[2024-05-19] MEDS: Pregabalin 25 MG CAP 75 MG PO ×3 (10:35→19:52)
[2024-05-19] MEDS: Albuterol/Ipratropium 3 ML UPD VIAL UPD ×2 (11:22→17:52)
[2024-05-19] MEDS: cefTRIAXone 2 GM/50 ML BAG IVPB (11:47)
[2024-05-19 11:59] LABS: MRSA PCR Negative (Negative)
--- NOTE | 2024-05-19 12:21 | PTTR_ITS ---
PT Notes Visit Reasons: community acquired pneumonia, sepsis Inpatient Physical Therapy Treatment Note [facility] Date: 05/19/24 PRECAUTIONS:MRSA SUBJECTIVE: Elvi is willing to participate with PT. Continues to c/o left hip pain with mvmt. OBJECTIVE: []? PAIN:left hip VITALS: ?monitored by [facility] [place] Therapeutic Activities ([id number]): Direct one-on-one instruction in dynamic activities to improve functional performance. ? BED MOBILITY/TRANSFERS? Rolling L/R: Max of2 Supine-sit: max of 2? Sit-supine: max of 2 ? Elvi sat EOB x15 min. Provided skilled cues and instruction on performance and technique throughout. ? Therapeutic Exercises ([id number]): Direct one-on-one instruction in therapeutic exercises to develop strength, endurance, range of motion and flexibility. ? Exercises ?Supine: AP, QS, GS x10. AROM of right hip ab/add, BKFO, heel slides x10 each. SLR x10. PROM Left hip, approx 30 degrees flex, and 30 degrees ab/add. Sitting: bicep curls and shld flex x 10ea.? Provided skilled instruction in proper exercise performance ASSESSMENT:? tolerated session quite well. She is able to position herself to get comfortable, and was quite happy and content to sit for a while She likes pillows placed in low back for support. PLAN: will continue to work on her strength and functional mobility. Will try kristopher lift to recliner tomorrow? TREATMENT CODE/TIME:45 min. [id number] and 1030-06. ([id number], [id number])
--- NOTE | 2024-05-19 13:25 | W.PM.PROGNOT ---
Date of Service Date of service: 05/19/24 Time of Service: 13:25 Assessment and Plan Assessment and plan (1) Community acquired pneumonia: Status: Acute Assessment and plan: Continue ceftriaxone and doxycycline. Has baseline ILD, history of chronic aspiration per record. Get swallow study when available, though not clearly aspirating clinically so allowing her to eat. Treat with steroids along with antibiotics. Blood cx - neg x 48h; sputum + staph aureus; sensitivity pending; continue vanco, ceftriaxone nd doxy. Qualifiers: Laterality: unspecified laterality Qualified Code(s): J18.9 - Pneumonia, unspecified organism (2) Acute on chronic respiratory failure with hypoxia and hypercapnia: Status: Acute Assessment and plan: Acute on chronic, associated with pneumonia and ILD exacerbation. Respiratory status has stabilized on 2L O2 via NC. Follow. (3) Sepsis: Status: Acute Assessment and plan: Abx, cx pending Sputum + staph aureus Qualifiers: Sepsis type: sepsis due to unspecified organism Sepsis acute organ dysfunction status: without acute organ dysfunction Qualified Code(s): A41.9 - Sepsis, unspecified organism (4) Non-sustained ventricular tachycardia: Status: Resolved Assessment and plan: Continue tele (5) Anemia: Assessment and plan: Improved. Was high dose iron. Recheck levels with trans sat 26%, can stop iron. Qualifiers: Anemia type: iron deficiency Iron deficiency anemia type: chronic blood loss Qualified Code(s): D50.0 - Iron deficiency anemia secondary to blood loss (chronic) (6) Hypotension: Status: Resolved Assessment and plan: chronically on midodrine. MAPs >65 while here. No signs of acute hypotension a/w sepsis. Continue midodrine. Qualifiers: Hypotension type: hypotension due to hypovolemia Qualified Code(s): E86.1 - Hypovolemia (7) Palliative care patient: Status: Acute Assessment and plan: h/o DNR/DNI now requesting full code. Will consult palliative. (8) Intertrochanteric fracture of left femur: Status: Acute Assessment and plan: mobility severely limited since failed repair. Ortho consult reviewed, considering surgery possibly at [facility]. She would like to understand plan, but no ortho on this weekend. Qualifiers: Encounter type: initial encounter Fracture type: closed Fracture alignment: displaced Qualified Code(s): S72.142A - Displaced intertrochanteric fracture of left femur, initial encounter for closed fracture (9) DVT prophylaxis: Status: Acute Assessment and plan: enoxaparin Subjective Subjective Patient reports: no new complaints, feels better, tolerating liquids well, tolerating a regular diet, voiding w/o difficulty and afebrile; denies flatus, diarrhea, nausea or vomiting Interval history since last seen: Continues to have sore throat and cough Exam Narrative Exam Narrative: GEN: Alert and oriented x 4, pleasant and cooperative, gives vague and limited history. No acute distress at rest. LUNGS: Lungs mostly clear, expiratory wheezes on the left. CV: RRR with no murmurs, gallops, or rubs. ABD: active bowel sounds, soft, nontender and nondistended. No masses. EXT: no cyanosis, clubbing, or edema. Feet warm. Objective Last Vital Signs Temp 37.2 C 05/19/24 11:05 Pulse 90 05/19/24 11:22 Resp 16 05/19/24 11:05 BP 119/81 05/19/24 11:05 Pulse Ox 95 05/19/24 11:22 Laboratory Results - last 24 hr 05/19/24 05/19/24 09:39 10:42 WBC 6.92 RBC 3.95 Hgb 11.4 Hct 36.1 MCV 91 MCH 28.9 MCHC 31.6 L RDW 14.1 Plt Count 255 MPV 11.2 H Immature Gran % 0.6 Neutrophils % 84.3 Lymphocytes % 10.5 Monocytes % 4.5 Eosinophils % 0.0 Basophils % 0.1 Nucleated RBC % 0.0 Absolute Neutrophils 5.83 Absolute Lymphocytes 0.73 L Absolute Monocytes 0.31 Absolute Eosinophils 0.00 Absolute Basophils 0.01 MRSA (TEM-PCR) Negative Time Spent with Patient Time Spent with Patient: 35-49 minutes Time was spent: preparing to see the patient(eg.review tests), ordering medications,tests, procedures, referring, communicating with other health child care specialist, indepentently interpreting results, counseling the patient and care coordination
[2024-05-19] MEDS: guaiFENesin 200 MG/10 ML CUP 600 MG PO (13:51)
[2024-05-19] MEDS: Calcium Carbonate *TUMS* 500 MG CHEW CH (17:00)
[2024-05-19] MEDS: Enoxaparin 40 MG/0.4 ML SYR SC (17:37)
[2024-05-19] MEDS: guaiFENesin 600 MG TABCR PO (19:51)
[2024-05-19] MEDS: traZODone 100 MG TAB 200 MG PO (19:51)
[2024-05-19] MEDS: HYDROmorphone 2 MG TAB PO (19:53)
[2024-05-19] MEDS: QUEtiapine 50 MG TAB PO (19:55)
[2024-05-20] VITALS (11 sets, daily range): BP systolic 114–131; BP diastolic 61–79; PULSE 74–89; RESP 8–22; TEMP 36.3–36.9; O2SAT 91–99
[2024-05-20] MEDS: DOXYCYCLINE 100 MG in Normal Saline 100 ML IVPB ×2 (00:08→12:16)
[2024-05-20] MEDS: VANCOMYCIN/WATER (PEG) 1 GM/200 ML BAG IVPB (05:45)
[2024-05-20] MEDS: methylPREDNISolone SUCC 125 MG VIAL 80 MG IVP ×3 (05:46→23:01)
[2024-05-20 06:48] LABS: Abs Immature Grans 0.05 10^3/uL (0.0-0.06); Absolute Basophil Count 0.01 10^3/uL (0.0-0.2); Absolute Lymphocyte Count 0.68 10^3/uL (1.2-3.4); Absolute Monocyte Count 0.47 10^3/uL (0.1-0.8); Absolute Neutrophil Count 5.06 10^3/uL (1.2-6.7); Basophils % 0.2 %; HCT 33.4 % (36.0-46.0); HGB 10.7 g/dL (11.2-15.7); Immature Grans % 0.8 %; Lymphocytes % 10.8 %; MCH 29.1 pg (27.0-33.0); MCV 91 fL (80-95); MPV 10.9 fL (8.0-11.0); Monocytes % 7.5 %; Neutrophils % 80.7 %; Platelet Count 247 10^3/uL (130-400); RBC 3.68 10^6/uL (3.93-5.22); RDW 14.5 % (11.7-14.6); RDW-SD 48.7 fL; WBC 6.27 10^3/uL (4.4-10.8)
[2024-05-20 06:58] LABS: Anion Gap 4.1 mmol/L (3-11); BUN 16 mg/dL (7-18); CO2 29.9 mmol/L (21.0-32.0); CREATININE 0.6 mg/dL (0.55-1.02); Calcium 8.9 mg/dL (8.5-10.1); Chloride 103 mmol/L (98-107); Estimated GFR 89.01 (mL/min/1.73m2); Glucose 136 mg/dL (74-106); Potassium 4.7 mmol/L (3.5-5.1); Sodium 137 mmol/L (136-145)
[2024-05-20] MEDS: Normal Saline Flush 10 ML SYR IVP ×3 (08:00→20:39)
[2024-05-20] MEDS: Magnesium Gluconate 500 MG TAB PO ×2 (08:39→20:36)
[2024-05-20] MEDS: DULoxetine 30 MG CAP 60 MG PO ×2 (08:39→20:36)
[2024-05-20] MEDS: Omeprazole 20 MG CAPCR PO ×2 (08:40→20:35)
[2024-05-20] MEDS: Pregabalin 25 MG CAP 75 MG PO ×3 (08:40→20:35)
[2024-05-20] MEDS: Multivitamin TAB 1 TAB PO (08:40)
[2024-05-20] MEDS: Loratidine 10 MG TAB PO (08:40)
[2024-05-20] MEDS: Potassium Chloride 20 MEQ TABCR PO ×3 (08:40→20:35)
[2024-05-20] MEDS: Vitamins B Comp w/C TAB 1 TAB PO (08:41)
[2024-05-20] MEDS: medroxyPROGESTERone 5 MG TAB 2.5 MG PO (08:41)
[2024-05-20] MEDS: Montelukast 10 MG TAB PO (08:42)
[2024-05-20] MEDS: guaiFENesin 600 MG TABCR PO ×2 (08:42→20:35)
[2024-05-20] MEDS: Sucralfate 1 GM TAB PO ×4 (08:42→20:36)
[2024-05-20] MEDS: Midodrine 2.5 MG TAB 5 MG PO ×3 (08:42→20:38)
[2024-05-20] MEDS: Polyethylene Glycol 3350 17 GM PACKET PO (08:46)
[2024-05-20] MEDS: Fluticasone NASAL SPRAY 16 GM BTL NS ×2 (09:11→20:39)
[2024-05-20] MEDS: Calcitonin-Salmon, Synthetic 3.7 ML BTL NS ×2 (09:11→20:39)
--- NOTE | 2024-05-20 09:35 | SP_ITS ---
Date of service: 05/20/24 Time of Service: 08:10 Subjective Clinical (Bedside) Swallow Evaluation Speech Language Pathology Referred by: Dr Richmond Referral Type: Clinical Swallow Evaluation Reason for Referral/HPI: Elvi Vick is an 83 yo female who was adm to [facility] on 05/17/24 from [facility] with respiratory failure/pneumonia. 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 Elvi has a history of large hiatal hernia and reflux - thus unclear if aspiration is prandial vs reflux pneumonitis. She was recently referred for an outpatient MBSS, EGD for consideration of dilation, and started on PPI at her pulmonology follow up 1 week prior to admission. Per patient report- she is experiencing fluctuating but significant reflux episodes. She states after fish dinner last evening she had severe burning in her esophagus/chest. She is on Omeprazole 20mg per chart. Nursing denies significant aspiration concerns, stating she is 'hit or miss' with coughing with PO. DIESEL MECHANIC IMPRESSIONS & RECOMMENDATIONS: A non-instrumental swallow evaluation was completed today with breakfast tray. Elvi demonstrated intermittent coughing throughout PO, occurring mostly with thin liquid trials via straw. Unclear if coughing was directly related to PO vs active pneumonia. She denied odynophagia or sensation of food sticking. In light of known dx large hiatal hernia and patient report of active severe reflux symptoms, anticipate aspiration may be due to esophageal dysfunction/reflux pneumonitis, though cannot rule out oral pharyngeal component. DIESEL MECHANIC to continue to follow, re-assess and determine indication for inpatient MBSS vs to continue POC for outpatient MBSS as previously ordered. Consider barium swallow. Patient pending outpatient EGD. In light of continued reflux symptoms, recommend strict reflux precautions as listed below. These were reviewed with patient today. FURTHER DIESEL MECHANIC SERVICES: Patient to be followed while on unit. Upon Discharge, TBD Diet Recommendations: SOLIDS: 7-Regular Solids LIQUIDS: 0-Thin Liquids MEDICATIONS: Whole with 0-Thin Liquids RISK MANAGEMENT: HOB upright as tolerated; upright for all PO intake. Oral hygiene BID/2x per day Level of Assistance/Supervision: Distant supervision for all PO intake. Please assist with positioning as indicated. Posture/Positioning Needs: Maintain upright position at least 60 minutes after meals Avoid meals/snacks 2-3 hours prior to reclining/sleeping Sleep with head of bed elevated to reduce likelihood of nocturnal reflux SUBJECTIVE: Patient received alert/awake, agreeable to evaluation Pain Reported? None Baseline Swallow Function: Patient denies dysphagia. Reports longstanding reflux symptoms, manages with TUMS. Pt states she is not on reflux prescription though per chart she is on Omeprazole 20mg. PO Trials Assessed: IDDSI 0 Thin Liquids - water via straw IDDSI 4 Puree Solid - Egg custard IDDSI 7 Regular Solid - Lydia Medications administered by RN - large handful taken with sips water Oral Mechanism Examination: Upper/lower dentures, loose fitting. Pt states she uses a different adhesive at home for better fit. Oral mucosa is WFL. Cranial Nerve Assessment: CN V ? Trigeminal Facial Sensation WNL Jaw Strength/ROM WNL ?WNL CN VII- Facial WNL labial ROM, strength, coordination. WNL lingual sensation WNL CN IX ? Glossopharyngeal WNL palatal elevation with phonation. No evidence of nasal emissions WNL CN X ? Vagus WNL Vocal quality and volume. Strong/sharp volitional cough WNL CX XII ? Hypoglossal WNL lingual ROM, strength, coordination WNL Oral Phase Findings: WFL Pharyngeal Phase Findings: Cough intermittently with PO- difficult to assess if directly related to deglutition Denied stasis ASSESSMENT: Further DIESEL MECHANIC Services indicated. Patient to be followed while on unit. Recommendation at Discharge: TBD Recommended Procedures: Consider MBSS vs regular barium swallow. She is already pending outpatient EGD consultation next month. Education Provided to: Patient, Nursing Topics Addressed:DIESEL MECHANIC findings, POC PLAN: Frequency: 2-3x/week for 1-2 weeks Goals: Penitentiary Goals: Patient will remain free from aspiration-related illness, malnutrition, and dehydration. Short Term Goals: Patient will tolerate Regular Diet and Thin liquids without overt s/s aspiration across 2/2 visits. Patient will verbalize comprehension re: reflux precautions across 2/2 visits. DIESEL MECHANIC CPT Code: 94562 Clinical Swallowing Evaluation TOTAL TIME: 25 minutes ([id number])
[2024-05-20] MEDS: cefTRIAXone 2 GM/50 ML BAG IVPB (11:28)
[2024-05-20] MEDS: Albuterol/Ipratropium 3 ML UPD VIAL UPD ×2 (11:55→17:56)
--- NOTE | 2024-05-20 13:52 | PGE_ITS ---
Date of Service Date of service: 05/20/24 Time of Service: 13:52 Assessment and Plan Assessment and plan (1) Community acquired pneumonia: Status: Acute Assessment and plan: Continue ceftriaxone and doxycycline. Doxy changed to oral. Will discharge on Bacrtim & Doxy (Rx sent) . Has baseline ILD, history of chronic aspiration per record. Blood cx - neg x 72h; sputum + staph aureus; sensitivity pending; discontinue vanco. Return to the [facility] tomorrow if continues to improve over night. Qualifiers: Laterality: unspecified laterality Qualified Code(s): J18.9 - Pneumonia, unspecified organism (2) Acute on chronic respiratory failure with hypoxia and hypercapnia: Status: Acute Assessment and plan: Acute on chronic, associated with pneumonia and ILD exacerbation. Respiratory status has stabilized, now on room air with SPO2 ~ 96% Follow. (3) Sepsis: Status: Acute Assessment and plan: Abx Sputum + staph aureus Qualifiers: Sepsis acute organ dysfunction status: without acute organ dysfunction Sepsis type: sepsis due to unspecified organism Qualified Code(s): A41.9 - Sepsis, unspecified organism (4) Non-sustained ventricular tachycardia: Status: Resolved Assessment and plan: No further ectopy; discontinue tele. (5) Anemia: Assessment and plan: Improved. Was high dose iron. Recheck levels with trans sat 26%, can stop iron. Qualifiers: Anemia type: iron deficiency Iron deficiency anemia type: chronic blood loss Qualified Code(s): D50.0 - Iron deficiency anemia secondary to blood loss (chronic) (6) Hypotension: Status: Resolved Assessment and plan: chronically on midodrine. MAPs >65 while here. No signs of acute hypotension a/w sepsis. Continue midodrine. Qualifiers: Hypotension type: hypotension due to hypovolemia Qualified Code(s): E86.1 - Hypovolemia (7) Palliative care patient: Status: Acute Assessment and plan: h/o DNR/DNI now requesting only DNI; palliative consult (8) Intertrochanteric fracture of left femur: Status: Acute Assessment and plan: mobility severely limited since failed repair. Ortho consult reviewed, considering surgery possibly at [facility]. She would like to understand plan, but no ortho on this weekend. Qualifiers: Encounter type: initial encounter Fracture alignment: displaced Fracture type: closed Qualified Code(s): S72.142A - Displaced intertrochanteric fracture of left femur, initial encounter for closed fracture (9) DVT prophylaxis: Status: Acute Assessment and plan: enoxaparin Subjective Subjective Patient reports: no new complaints, tolerating liquids well, tolerating a regular diet, voiding w/o difficulty, bowel movement and afebrile; denies flatus, diarrhea, nausea or vomiting Interval history since last seen: Awake, alert, pleasant, conversant, on room air. No increased WOB. Exam Narrative Exam Narrative: GEN: Alert and oriented x 4, pleasant and cooperative, gives vague and limited history. No acute distress at rest. LUNGS: Lungs mostly clear, distant, some exp wheeze lower base CV: RRR with no murmurs, gallops, or rubs. ABD: active bowel sounds, soft, nontender and nondistended. No masses. EXT: no cyanosis, clubbing, or edema. Feet warm. Objective Last Vital Signs Temp 36.5 C 05/20/24 11:16 Pulse 86 05/20/24 12:03 Resp 16 05/20/24 11:55 BP 116/72 05/20/24 11:16 Pulse Ox 96 05/20/24 11:55 Laboratory Results - last 24 hr 05/20/24 06:30 WBC 6.27 RBC 3.68 L Hgb 10.7 L Hct 33.4 L MCV 91 MCH 29.1 MCHC 32.0 RDW 14.5 Plt Count 247 MPV 10.9 Immature Gran % 0.8 Neutrophils % 80.7 Lymphocytes % 10.8 Monocytes % 7.5 Eosinophils % 0.0 Basophils % 0.2 Nucleated RBC % 0.0 Absolute Neutrophils 5.06 Absolute Lymphocytes 0.68 L Absolute Monocytes 0.47 Absolute Eosinophils 0.00 Absolute Basophils 0.01 Sodium 137 Potassium 4.7 Chloride 103 Carbon Dioxide 29.9 Anion Gap 4.1 BUN 16 Creatinine 0.6 Est GFR (CKD-EPI 2020) 89.01 Glucose 136 H Calcium 8.9 Magnesium 2.0 Time Spent with Patient Time Spent with Patient: 25-34 minutes Time was spent: preparing to see the patient(eg.review tests), ordering medications,tests, procedures, referring, communicating with other health progressive care unit registered nurse, indepentently interpreting results, counseling the patient and care coordination
--- NOTE | 2024-05-20 13:57 | PT.INTREAT ---
PT Notes Visit Reasons: community acquired pneumonia, sepsis Inpatient Physical Therapy Treatment Note [facility] Date: 05/20/24 PRECAUTIONS:MRSA SUBJECTIVE: Elvi initially reporting pain at her IV site. ( nurse notified and into assess). Pt agreeable to participate in edge of bed tasks. She declined getting into the recliner via the kristopher today but stated she would tomorrow. Pt reporting she performed only her butt squeeze exercises so far today. OBJECTIVE:pt semireclined in bed IV infusing. ? PAIN:left hip 10/28 with movement VITALS: ?monitored by nsg and via telemetry Therapeutic Activities ([id number]): Direct one-on-one instruction in dynamic activities to improve functional performance. ? BED MOBILITY/TRANSFERS? Rolling L/R: Max of1 Supine with HOB at 50 degrees -sit: mod A of 1? Sit-supine: max a of 1( for LEs) and min A of 1 to guide trunk to the left ?reposititioning in bed Max a of 2 to boost Elvi sat EOB x18 min. Provided skilled cues and instruction on performance and technique throughout. ? Therapeutic Exercises ([id number]): Direct one-on-one instruction in therapeutic exercises to develop strength, endurance, range of motion and flexibility. ? Exercises ?Supine: AP, QS, GS x10. AROM of right hip ab/add, BKFO, heel slides x10 each. SLR x10. PROM Left hip, approx 30 degrees flex, and 30 degrees ab/add. Sitting: bicep curls and shld flex x 10ea.?, LAQ BLE ? Provided skilled instruction in proper exercise performance ASSESSMENT:? Pt moves well when encouraged to perform on her own. She was able to direct this PT in assisting her enabling her to perform supine to sit with 1 assist. She able to tolerate increased sitting time at edge of bed performing UE and LE dynamic movements. She was pleased with herself and agreeable to be out of bed to the recliner tomorrow. PLAN: will continue to work on her strength and functional mobility. Will try kristopher lift to recliner tomorrow? TREATMENT CODE/TIME: 23908 x 13 mins [id number] and 16573 x 28 mins for 2 units [id number]
[2024-05-20] MEDS: Enoxaparin 40 MG/0.4 ML SYR SC (17:10)
--- NOTE | 2024-05-20 17:45 | W.PALLCONSUL ---
Date of service: 05/20/24 Time of Service: 16:00 History of Present Illness Narrative: Ms. Boles is an 83 y/o F currently hospitalized 2/2 CAP and sepsis; PMHx sig for PMHx sig for fibromyalgia, ILD, LOUISA, IBS, osteoarthritis, DJD, depression, h/o AUD; consult placed to review CODE status Hospital course: presented to [facility] ED on 05/17 w/CAP meeting sepsis criteria, started on oral doxycycline; she is clinically improving, now tolerating RA; plan for discharge back to the [facility] tomorrow Elvi is having a hard time at the [facility], does not feel she is receiving the care she needs. She is worried about returning there now w/acute breathing changes. She agrees she is doing better, her cough is improving as it her breathing. however she still has a cough and chest tightness. She worries they won't know what to do with her if she is getting worse again. She also is frustrated w/the lack of progress made on her pain, feels that nothing is working. Of note, this differs from reports previously that there was some forward progress. She has a hard time sleeping there bc the mattress, and was told they can't get her a new one, but she would buy one. Unfortunately finances are too tight for her to do this. She is aware she previously completed a COLST form indicating a DNR/I preference. She felt that at that time she understood the form would be if she was unconscious and closer to , which is why she changed this back to wanting CPR during this admission. She does not want to be intubated. She does not want to change paperwork today, agrees would want compressions/CPR trialed on her during this acute hospitalization. Marzena, her sister, is her HCA Assessment and Plan Assessment and plan (1) Pain due to internal orthopedic prosthetic device: Status: Acute Assessment and plan: f/b outpatient PC, f/u scheduled next (2) Cough: Status: Acute Assessment and plan: improving (3) Palliative care patient: Status: Acute Assessment and plan: PC will continue to follow outpatient, to alternate between Dr Carrasquillo and Hailey Collier; f/u scheduled w/Dr Carrasquillo next week - need for review of rights to file grievance, etc, and assist as needed (4) Community acquired pneumonia: Status: Acute Assessment and plan: continue oral doxy improving on RA Qualifiers: Laterality: unspecified laterality Qualified Code(s): J18.9 - Pneumonia, unspecified organism (5) Insomnia: Status: Chronic Assessment and plan: chronic issue (6) Discharge planning issues: Status: Resolved Assessment and plan: Elvi is not ready to be discharged to [facility] she feels she has not had enough time to think about where she would really like to relocate too, has spent much of this hospitalization trying to get better. She understands she is no longer acutely ill and is improving, so does not meet criteria to remain hospitalized. However, she still feels rushed and unsure of what she wants to do, besides not live at the [facility] anymore - she has detention care, and current plan is to remain at the [facility] indefinitely (7) DNI (do not intubate): Status: Acute (8) ACP (advance care planning): Assessment and plan: reviewed current inpatient CODE status: CPR yes, intubation no. reviewed CPR statistics, concerns w/increased pain/suffering w/broken ribs nad prolonged hospitalization. reviewed COLST form is DNR/I, so once she leaves hospital that will be back in place. She does not wish to make changes to this plan today, preference to wait until she is feeling better, thinking clearer and had better rest. her mind is focused on not wanting to return to the [facility] today reviewed palliative role in care, plan for alternating visits, preferences in direct and honest communication reviewed rights to file grievance, contact ombudsman, etc spent 15 mins w/ACP Review of Systems Narrative: as per HPI PFSH All Active Problems (Updated 05/20/24 @ 18:00 by Hailey Collier NP) DNI (do not intubate) (Acute) Hypokalemia (Acute) Sepsis (Acute) DVT prophylaxis (Acute) Acute on chronic respiratory failure with hypoxia and hypercapnia (Acute) Respiratory failure (Acute) Pneumonia (Acute) Chronic hypoxic respiratory failure (Acute) Displaced intertrochanteric fracture of left femur, subsequent encounter for closed fracture with malunion (Acute) Pain due to internal orthopedic prosthetic device (Acute) Lung disease (Acute) Left hip pain (Acute) Cough (Acute) Interstitial lung disease (Acute) secondary to chronic aspiration Seasonal allergies (Acute) Intertrochanteric fracture of left femur (Acute) S/P IM FIXATION 01/01/24 Skin ulcer (Acute) Palliative care patient (Acute) Community acquired pneumonia (Acute) DNR (do not resuscitate) (Acute) E. 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 fell down and could not get up Morbid obesity (Chronic) Allergic rhinitis (Chronic) Hyperlipidemia (Chronic) Fibromyalgia (Chronic) DJD (degenerative joint disease) (Chronic) Insomnia (Chronic) Gastroesophageal reflux disease (Chronic) Hiatal hernia (Chronic) Irritable bowel syndrome (Chronic) History of surgery (Chronic) a. S/P open right ankle fracture/dislocation. b. Left knee arthroscopy. c. Right wrist fracture repair. d. T/A as a child. Dehydration, mild (Acute 09/22/14) Housing or economic circumstance (Chronic 09/22/14) a. No heat for 1-1/2 days H/O fall (Chronic) Anemia (Chronic) Alcohol withdrawal delirium (Acute 09/22/14) Rhabdomyolysis (Acute 09/22/14) Ataxia (Chronic) Onychomycosis (Chronic) Depression (Chronic) Medical History Frequent falls Alcohol withdrawal NSIP (nonspecific interstitial pneumonia) Fracture of right inferior pubic ramus Fracture of right superior pubic ramus ACP (advance care planning) Laceration of skin of right forearm Skin ulcer of lower leg Laceration of arm, right, complicated Fractured pelvis T12 compression fracture Acute exacerbation of chronic low back pain Fall Person living alone (09/22/14) Hiatal hernia IBS (irritable bowel syndrome) Hypertension Allergic rhinitis GERD (gastroesophageal reflux disease) DJD (degenerative joint disease) Hyperlipidemia Hypercholesterolemia Fibromyalgia Depression Anemia Alcohol abuse Insomnia Surgical History Tonsillectomy and adenoidectomy Repair fracture right wrist ORIF right ankle Colonoscopy - MAC (11/18/16) Arthroplasty of knee left Family History Mother Dementia Maternal Aunt Diabetes Social History Smoking/Tobacco Use Status: Former Tobacco Use Smoking risk assessment performed?: Yes Alcohol Intake: current Alcohol Intake frequency: 0-2 drinks per day Alcohol type: wine Counseling given: Yes Details: 1-2 bottle of wine/day Drug use: Daily Substance use type: does not use and marijuana Details: two tokes for sleep Housing: correction Do you feel safe at home: Yes Do you feel safe in your relationship?: Yes Additional Social history: Lives alone in home in [facility], has a cat. States hasn't been out of house for a year. One sister in [place] Exam Narrative Exam Narrative: General: older adult female, lying in hospital bed, comfortable, ice pack on chest HEENT: hearing grossly WNL, normocephalic, atraumatic, edentulous, dentures at bedside Resp: RA, normal resp effort, speaks full sentences w/o SOB, wet non-productive cough x3 during visit Psych: cooperative, speech/movement WNL, mood/affect WNL to sad; thought process perseverating (discharge plan), illogical, impoverished; insight/judgment limited Results Last Vital Signs Temp 98 F 05/20/24 15:14 Pulse 77 05/20/24 15:14 Resp 16 05/20/24 15:14 BP 114/76 05/20/24 15:14 Pulse Ox 91 L 05/20/24 15:14 Labs 05/20/24 06:30 05/20/24 06:30 Labs: Laboratory Results - last 24 hr 05/20/24 06:30 WBC 6.27 RBC 3.68 L Hgb 10.7 L Hct 33.4 L MCV 91 MCH 29.1 MCHC 32.0 RDW 14.5 Plt Count 247 MPV 10.9 Immature Gran % 0.8 Neutrophils % 80.7 Lymphocytes % 10.8 Monocytes % 7.5 Eosinophils % 0.0 Basophils % 0.2 Nucleated RBC % 0.0 Absolute Neutrophils 5.06 Absolute Lymphocytes 0.68 L Absolute Monocytes 0.47 Absolute Eosinophils 0.00 Absolute Basophils 0.01 Sodium 137 Potassium 4.7 Chloride 103 Carbon Dioxide 29.9 Anion Gap 4.1 BUN 16 Creatinine 0.6 Est GFR (CKD-EPI 2020) 89.01 Glucose 136 H Calcium 8.9 Magnesium 2.0 Time Spent Time Spent with Patient Time Spent(min): 60
--- NOTE | 2024-05-20 18:12 | CMPROGNOTE_ITS ---
Date of service: 05/20/24 Time of Service: 18:13 Care Management Progress Note Progress Note Text Progress Note Text: Elvi was lying in bed when CM met with her. She stated that she is feeling ok today, but is still having a lot of pain. CM discussed her discharge plan, which will be to return to the [facility]. Elvi expressed interest in moving to a different facility, although she could not identify where she wants to go. CM discussed that there are few terminologist beds available, and that this should be worked on in the community. Palliative care met with her today as well. CM will continue to follow. Discharge Potential Discharge Needs: Other (SNF, return to the [facility]) Anticipated Barriers to Discharge: None Identified Patient/Family Education Needs: Review discharge instructions, discuss Ask Me Three Transportation: RCT RCT Transportation: Wheel chair van Plan: Anticipate that Elvi will return to the [facility] once she is medically stable. She will f/u with her PCP and her discharge plan of care. She will transport via RCT in a wheelchair van. CM will continue to follow. SDOH(Care Management) Screening Will the Patient Participate in the Screening?: Yes Do you worry about having a steady place to live?: no Problems where you live: no known problems In the past 12 months, have you had to go without electric, gas, oil or water in your home?: no Have you or anyone in your house had to go without enough food to eat?: no Has lack of transportation kept you from medical appointments or from doing things needed for daily living?: no Has anyone in your support network made you feel unsafe for any reason?: no Social Determinants of Health Comments(SDOH Details): lives at [facility]
[2024-05-20] MEDS: Calcium Carbonate *TUMS* 500 MG CHEW CH (19:47)
[2024-05-20] MEDS: QUEtiapine 50 MG TAB PO (20:35)
[2024-05-20] MEDS: HYDROmorphone 2 MG TAB PO (20:36)
[2024-05-20] MEDS: traZODone 100 MG TAB 200 MG PO (20:37)
[2024-05-20] MEDS: Doxycycline Hyclate 100 MG CAP PO (23:01)
[2024-05-21 03:56] VITALS: BP 140/70; PULSE 74; RESP 16; TEMP 36.5; O2SAT 90
[2024-05-21 05:28] VITALS: PULSE 77; RESP 16; RESP 9; O2SAT 91
[2024-05-21] MEDS: Albuterol/Ipratropium 3 ML UPD VIAL UPD (05:28)
[2024-05-21 05:38] VITALS: PULSE 74; RESP 16; O2SAT 99
[2024-05-21] MEDS: methylPREDNISolone SUCC 125 MG VIAL 80 MG IVP (06:15)
[2024-05-21 07:27] LABS: Abs Immature Grans 0.12 10^3/uL (0.0-0.06); Absolute Lymphocyte Count 1.06 10^3/uL (1.2-3.4); Absolute Monocyte Count 0.57 10^3/uL (0.1-0.8); Absolute Neutrophil Count 4.63 10^3/uL (1.2-6.7); HCT 33.2 % (36.0-46.0); HGB 10.7 g/dL (11.2-15.7); Immature Grans % 1.9 %; Lymphocytes % 16.6 %; MCH 28.8 pg (27.0-33.0); MCHC 32.2 % (32.0-36.0); MCV 89 fL (80-95); MPV 11.4 fL (8.0-11.0); Monocytes % 8.9 %; Neutrophils % 72.6 %; Platelet Count 265 10^3/uL (130-400); RBC 3.72 10^6/uL (3.93-5.22); RDW 14.3 % (11.7-14.6); RDW-SD 46.3 fL; WBC 6.38 10^3/uL (4.4-10.8)
[2024-05-21 07:42] LABS: Anion Gap 7.2 mmol/L (3-11); BUN 20 mg/dL (7-18); CO2 28.8 mmol/L (21.0-32.0); CREATININE 0.5 mg/dL (0.55-1.02); Calcium 8.7 mg/dL (8.5-10.1); Chloride 104 mmol/L (98-107); Glucose 127 mg/dL (74-106); Potassium 4.4 mmol/L (3.5-5.1); Sodium 140 mmol/L (136-145)
[2024-05-21 07:54] VITALS: BP 107/53; PULSE 90; RESP 16; TEMP 37; O2SAT 94
[2024-05-21] MEDS: Midodrine 2.5 MG TAB 5 MG PO (08:11)
[2024-05-21] MEDS: DULoxetine 30 MG CAP 60 MG PO (08:11)
[2024-05-21] MEDS: Montelukast 10 MG TAB PO (08:11)
[2024-05-21] MEDS: Multivitamin TAB 1 TAB PO (08:11)
[2024-05-21] MEDS: Vitamins B Comp w/C TAB 1 TAB PO (08:11)
[2024-05-21] MEDS: Polyethylene Glycol 3350 17 GM PACKET PO (08:11)
[2024-05-21] MEDS: Potassium Chloride 20 MEQ TABCR PO (08:12)
[2024-05-21] MEDS: medroxyPROGESTERone 5 MG TAB 2.5 MG PO (08:12)
[2024-05-21] MEDS: Loratidine 10 MG TAB PO (08:12)
[2024-05-21] MEDS: Sucralfate 1 GM TAB PO (08:12)
[2024-05-21] MEDS: guaiFENesin 600 MG TABCR PO (08:12)
[2024-05-21] MEDS: Magnesium Gluconate 500 MG TAB PO (08:12)
[2024-05-21] MEDS: Pregabalin 25 MG CAP 75 MG PO (08:12)
[2024-05-21] MEDS: Normal Saline Flush 10 ML SYR IVP (08:13)
[2024-05-21] MEDS: Fluticasone NASAL SPRAY 16 GM BTL NS (08:15)
[2024-05-21] MEDS: Calcitonin-Salmon, Synthetic 3.7 ML BTL NS (08:15)
--- NOTE | 2024-05-21 09:12 | DSE_ITS ---
Date of service: 05/21/24 Time of Service: 09:12 DS: Diagnosis Discharge Diagnosis (1) Pain due to internal orthopedic prosthetic device: Status: Acute (2) Cough: Status: Acute (3) Palliative care patient: Status: Deleted (4) Community acquired pneumonia: Status: Acute (5) Insomnia: Status: Chronic (6) Discharge planning issues: Status: Resolved (7) DNI (do not intubate): Status: Acute (8) ACP (advance care planning): Discharge Plan Disposition Patient Disposition: Long Term Facility(SNF) Condition: Improving Discharge Details Reason For Visit: community acquired pneumonia, sepsis Admit Date/Time: 05/17/24 16:19 Admit Provider: Audie Richmond Attending Provider: Audie Richmond Primary Care Provider: Iesha Leary [facility] Course Hospital Course: This is an 83-year-old female with a past medical history of interstitial lung disease who was admitted from [facility] on 05/17/2024 due to increasing cough and fever, reaching 101.5?F. The patient had been residing at [facility] since December 2023 following a hip fracture and subsequent loss of mobility. She reported a worsening cough and breathing difficulties, attributing this to immobility and mucus accumulation in her lungs. She denied recent aspiration events, despite her history of chronic aspiration related to her ILD. Additionally, she mentioned chest tightness without ongoing pain or palpitations. There were no recent upper respiratory symptoms. The patient reported no new complaints, t olerating liquids and a regular diet well. She was voiding without difficulty and had regular bowel movements. She remained afebrile and denied any gastrointestinal distress. * Community-Acquired Pneumonia * Status: Acute * Assessment and Plan: Emperic treatment with ceftriaxone and doxycycline. Blood cultures were negative after 72 hours; sputum culture grew Staphylococcus aureus, sensitivity to Bactrim. Discontinued vancomycin. Will discharge on Bactrim single strength three times a day to complete a 7 day course and doxycycline 100 mg twice a day to complete a 7 day course. * Qualifier: J18.9 - Pneumonia * Acute on Chronic Respiratory Failure with Hypoxia and Hypercapnia * Status: Resolved * Assessment and Plan: Associated with pneumonia and exacerbation of ILD. Respiratory status stabilized on 2L O2 via nasal cannula, now stable on room air. * Sepsis * Status: Resolved * Assessment and Plan: Meets sepsis criteria with tachycardia and fever. Continue antibiotics; Sputum culture positive for Staphylococcus aureus. * Qualifier: A41.9 - Sepsis * Non-Sustained Ventricular Tachycardia * Status: Resolved * Assessment and Plan: Reviewed with cardiology; no medications recommended. * Anemia * Assessment and Plan: Improved with high-dose iron therapy. Recheck iron levels and transferrin saturation; can discontinue iron supplements. * Qualifier: D50.0 - Iron deficiency anemia secondary to blood loss (chronic) * Hypotension * Status: Resolved * Assessment and Plan: Patient chronically on midodrine; mean arterial pressures maintained >65 mmHg during hospitalization. Continue midodrine. * Qualifier: E86.1 - Hypovolemia * Palliative Care Patient * Status: Acute * Assessment and Plan: Patient with a history of DNR/DNI status now requesting full code status. Consult palliative care for further discussion. * Intertrochanteric Fracture of Left Femur * Status: Acute * Assessment and Plan: Mobility severely limited due to prior unsuccessful surgical repair. Orthopedic consultation reviewed, considering potential [place] at [facility] * Qualifier: S72.142A - Displaced intertrochanteric fracture of left femur, initial encounter for closed fracture. Patient was seen by speech therapy and their plan includes ongoing [employer] services, with recommendations for a senior care facility. Suggested referrals cover gastroenterology, neurology, otolaryngology, and dietary services. Recommended procedures include laryngoscopy and swallowing assessments (VFSS/MBSS). Dietary recommendations range from regular solids to pureed. Risk management emphasizes upright positioning during intake and oral hygiene practices. Reduce auditory and/or visual distractions when eating, Provide verbal and/or visual cues to use recommended strategies, Small sips and bites when eating, Slow rate of intake, Swallow between bites, Avoid straws , Sips by straw only, Multiple swallows, Alternate intake of liquids and solids, Sensory enhancement (flavor, texture, temperature), Small+frequent meals throughout day. Maintain upright position at least 30 minutes after meals, Avoid meals/snacks 2-3 hours prior to reclining/sleeping, Sleep with head of bed elevated to reduce likelihood of nocturnal reflux. Education was provided to the patient regarding swallowing anatomy and safety. The plan aims for 2-3 sessions per week, focusing on preventing aspiration, malnutrition, and dehydration, with specific short-term and long-term goals. Patient is discharged to [facility] with recommendations. Follow up with PCP. 1-2 weeks; BMP in 1 week to check potassium and renal functions secondary to bactrim. Home Meds and New Rx's Prescriptions: New doxycycline hyclate 100 mg Capsule 100 mg PO Q12H Qty: 8 0RF sulfamethoxazole-trimethoprim [Bactrim] 400-80 mg tablet 1 tab PO TID Qty: 12 0RF Continued Balanced B-100 Complex 100 mg tablet extended release 1 tab PO DAILY vitamin A 2,400 mcg capsule 2,400 mcg PO DAILY PRN ginkgo biloba 40 mg tablet 240 mg PO DAILY PRN Rx Instructions: give with meal/snack magnesium 250 mg tablet 500 mg PO BID zinc acetate 25 mg (zinc) capsule 100 mg PO BID vitamin E (dl, acetate) 45 mg (100 unit) capsule 180 mg PO DAILY loratadine [Allergy Relief (loratadine)] 10 mg tablet 10 mg PO DAILY polyethylene glycol 3350 17 gram/dose powder 17 g PO DAILY Neuriva Original 100-100 mg capsule 1 cap PO DAILY PRN calcium carbonate [Tums Ultra] 400 mg calcium (1,000 mg) tablet,chewable 2,000 mg PO DAILY PRN Rx Instructions: take 2 tablets (2000mg) by mouth daily *patient will supply sucralfate 1 gram tablet 1 g PO 4XD omeprazole 20 mg capsule,delayed release(DR/EC) 20 mg PO BID Qty: 60 12RF bisacodyl 10 mg suppository 10 mg NE DAILY PRN multivitamin Tablet 1 tab PO DAILY benzonatate 100 mg capsule 100 mg PO BID montelukast 10 mg tablet 10 mg PO DAILY Qty: 90 4RF ferrous sulfate 325 MG tablet 325 mg PO TID cholecalciferol (vitamin D3) [Vitamin D3] 400 UNIT tablet 50 mcg PO DAILY glucosamine sulfate 2KCl 1,000 MG tablet 500 mg PO BID ascorbic acid (vitamin C) 1,000 mg tablet 1 g PO BID medroxyprogesterone [Provera] 2.5 MG tablet 2.5 mg PO DAILY duloxetine [Cymbalta] 60 mg capsule,delayed release(DR/EC) 60 mg PO BID quetiapine 50 mg tablet 50 mg PO QPM Patient Comments: TAKE ONE TABLET BY MOUTH EVERY EVENING trazodone 100 mg tablet 200 mg PO HS Patient Comments: TAKE 2 TABLETS BY MOUTH EVERY NIGHT cyclosporine 0.05 % Dropperette 8 drp OU BID Qty: 30 0RF potassium chloride 20 MEQ tablet,ER particles/crystals 20 meq PO TID Rx Instructions: 20 MG PO TID DIRECTED fluticasone propionate 50 mcg/actuation spray,suspension 1 spray INTRANASAL BID Patient Comments: SPRAY ONE SPRAY IN EACH NOSTRIL TWICE A DAY Rx Instructions: ONE SPRAY EACH NOSTRIL BID morphine 30 mg tablet extended release 30 mg PO BID MDD 45 calcitonin (salmon) 200 unit/actuation Peebles,Non-Aerosol 1 spray NS DAILY Rx Instructions: 1 spray in left nostril daily- alternate nostrils every other day albuterol sulfate [Ventolin HFA] 90 mcg/actuation Hfa Aerosol Inhaler 2 puff inhalation TID midodrine 5 mg tablet 5 mg PO TID pregabalin 75 mg capsule 75 mg PO TID hydromorphone 2 mg tablet 2 mg PO HS MDD 1 Rx Instructions: Hold if patient refuses or staff feels she is somulent Discharge Instructions Instructions: Community-Acquired Pneumonia, Adult (DC) Additional Instructions: Recommend BMP in 1 week to check potassium and renal function secondary to bactrim. Referrals: Iesha Leary [Primary Care Provider] - (1-2 weeks s/p hospitalization for community acquired pneumonia. Recommend BMP in one week. ) Activity:: Activity as Tolerated Equipment/Supplies:: No Equipment Needed Diet:: As Tolerated Discharge Orders Discharge Orders: Discharge Order (Routine); Ordered 05/21/24 Ordered By: Salome Andres Ambulatory Orders: Basic Metabolic Panel (Routine) Timeframe: 1 Week Facility: [facility] - Location: Laboratory Outpatient - [facility] Ordered By: Salome Louise DS: Summary Time Spent with Patient providing and/or coordinating discharge services: Greater than 30 minutes Status at Discharge Functional status at discharge: bed bound Overall status at discharge: patient is back to baseline Mental Status: mental status grossly normal Speech and Movement: speech and movement normal Mood: congruent mood Affect: normal affect Quality:SDOH Health Related Social Needs: No Data to Display Exam Narrative Exam Narrative: GEN: Alert and oriented x 4, pleasant and cooperative, gives vague and limited history. No acute distress at rest. LUNGS: Lungs clear, distant CV: RRR with no murmurs, gallops, or rubs. ABD: active bowel sounds, soft, nontender and nondistended. No masses. EXT: no cyanosis, clubbing, or edema. Feet warm. Psych Mental Status: mental status grossly normal Speech and Movement: speech and movement normal Mood: congruent mood Affect: normal affect DS: Data Vitals/I&O Vitals and I&O: Vital Signs Temperature 37 C 05/21/24 07:54 Temperature Source Tympanic 05/21/24 07:54 Pulse 90 05/21/24 07:54 Pulse 103 H 05/17/24 15:46 Respiratory Rate 16 05/21/24 07:54 Respiratory Effort Short of Breath, Labored 05/17/24 17:55 Respiratory Depth Normal 05/17/24 17:55 Respiratory Pattern Tachypnea 05/17/24 17:55 Blood Pressure 107/53 L 05/21/24 07:54 Blood Pressure Mean 89 05/17/24 15:46 Pulse Oximetry 94 05/21/24 07:54 Oxygen Delivery Method Room Air 05/21/24 07:54 Oxygen Flow Rate 0 05/21/24 07:54 Pain Level 0 05/20/24 15:14 Comment Pain level 0 when still. 05/20/24 11:16 Intake & Output 05/20/24 05/20/24 05/21/24 11:59 23:59 11:59 Intake Total 310 / 460 150 / 460 100 / 100 Output Total 600 / 600 1700 / 1700 Balance 310 / -140 -450 / -140 -1600 / -1600 Weight 86.4 kg 87.7 kg Intake: IV 310 / 460 150 / 460 100 / 100 Output: Urine 600 / 600 1700 / 1700 Other: Urine Color Straw Straw Yellow Urine Appearance Clear Clear Urine Odor Strong Comment purewick Data Completed and Pending Labs on day of discharge: Labs from last 24 hours 05/21/24 06:49 WBC 6.38 RBC 3.72 L Hgb 10.7 L Hct 33.2 L MCV 89 MCH 28.8 MCHC 32.2 RDW 14.3 Plt Count 265 MPV 11.4 H Immature Gran % 1.9 Neutrophils % 72.6 Lymphocytes % 16.6 Monocytes % 8.9 Eosinophils % 0.0 Basophils % 0.0 Nucleated RBC % 0.0 Absolute Neutrophils 4.63 Absolute Lymphocytes 1.06 L Absolute Monocytes 0.57 Absolute Eosinophils 0.00 Absolute Basophils 0.00 Sodium 140 Potassium 4.4 Chloride 104 Carbon Dioxide 28.8 Anion Gap 7.2 BUN 20 H Creatinine 0.5 L Est GFR (CKD-EPI 2020) 93.00 Glucose 127 H Calcium 8.7 Magnesium 2.0 Preliminary micro results at discharge 05/17/24 11:49 Blood Culture - Preliminary Blood Staphylococcus Aureus 05/17/24 12:35 Blood Culture - Preliminary Blood NO GROWTH 72 HOURS PFSH All Active Problems (Updated 05/21/24 @ 00:08 by CASSIE NEGRON) DNI (do not intubate) (Acute) Hypokalemia (Acute) Acute on chronic respiratory failure with hypoxia and hypercapnia (Acute) Respiratory failure (Acute) Pneumonia (Acute) Chronic hypoxic respiratory failure (Acute) Displaced intertrochanteric fracture of left femur, subsequent encounter for closed fracture with malunion (Acute) Pain due to internal orthopedic prosthetic device (Acute) Lung disease (Acute) Left hip pain (Acute) Cough (Acute) Interstitial lung disease (Acute) secondary to chronic aspiration Seasonal allergies (Acute) Skin ulcer (Acute) Community acquired pneumonia (Acute) DNR (do not resuscitate) (Acute) E. 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 fell down and could not get up Morbid obesity (Chronic) Allergic rhinitis (Chronic) Hyperlipidemia (Chronic) Fibromyalgia (Chronic) DJD (degenerative joint disease) (Chronic) Insomnia (Chronic) Gastroesophageal reflux disease (Chronic) Hiatal hernia (Chronic) Irritable bowel syndrome (Chronic) History of surgery (Chronic) a. S/P open right ankle fracture/dislocation. b. Left knee arthroscopy. c. Right wrist fracture repair. d. T/A as a child. Dehydration, mild (Acute 09/22/14) Housing or economic circumstance (Chronic 09/22/14) a. No heat for 1-1/2 days H/O fall (Chronic) Anemia (Chronic) Alcohol withdrawal delirium (Acute 09/22/14) Rhabdomyolysis (Acute 09/22/14) Ataxia (Chronic) Onychomycosis (Chronic) Depression (Chronic) Medical History Frequent falls Alcohol withdrawal NSIP (nonspecific interstitial pneumonia) Fracture of right inferior pubic ramus Fracture of right superior pubic ramus ACP (advance care planning) Laceration of skin of right forearm Skin ulcer of lower leg Laceration of arm, right, complicated Fractured pelvis T12 compression fracture Acute exacerbation of chronic low back pain Fall Person living alone (09/22/14) Hiatal hernia IBS (irritable bowel syndrome) Hypertension Allergic rhinitis GERD (gastroesophageal reflux disease) DJD (degenerative joint disease) Hyperlipidemia Hypercholesterolemia Fibromyalgia Depression Anemia Alcohol abuse Insomnia Surgical History Tonsillectomy and adenoidectomy Repair fracture right wrist ORIF right ankle Colonoscopy - MAC (11/18/16) Arthroplasty of knee left Family History Mother Dementia Maternal Aunt Diabetes Social History Smoking/Tobacco Use Status: Former Tobacco Use Smoking risk assessment performed?: Yes Alcohol Intake: current Alcohol Intake frequency: 0-2 drinks per day Alcohol type: wine Counseling given: Yes Details: 1-2 bottle of wine/day Drug use: Daily Substance use type: does not use and marijuana Details: two tokes for sleep Housing: detention Do you feel safe at home: Yes Do you feel safe in your relationship?: Yes Additional Social history: Lives alone in home in [facility], has a cat. States hasn't been out of house for a year. One sister in [place] Time Spent with Patient Time Spent with Patient: 45-69 minutes Time was spent: preparing to see the patient(eg.review tests), ordering medications,tests, procedures, referring, communicating with other health acute care physician, indepentently interpreting results, counseling the patient and care coordination
[2024-05-21] MEDS: Doxycycline Hyclate 100 MG CAP PO (09:43)
--- NOTE | 2024-05-21 11:47 | CMDISCH_ITS ---
Date of service: 05/21/24 Time of Service: 11:47 LACE Index Scoring Tool Questions: Length of Stay (in days): 4 - 6 Was the patient admitted via the E.D.?: Yes Comorbidities: Chronic Pulmonary Disease E.D. Visits: 1 Answers: Total Score: 10 Risk of Readmission: High Risk Care Management Discharge Plan Reason for Hospitalization: CAP, sepsis Discharge Plan: Elvi returned to the [facility]] today, where she resides. [facility] transported her due to her being bed bound, coordinated by CM. She will follow up with her PCP and discharge plan of care. Patient/Family Education Needs: Review discharge instructions and limitations, discussion of self care needs including ask me three. Services Needed at Discharge: Nursing Home Facility ([facility][1]) and Transportation ([facility]) SDOH Health Related Social Needs: No Data to Display
== END 2024-05-21 11:34 | disposition skilled nursing facility (03) | DRG 871 ==
LOC: ER 16:34 → MS 17:41
PROVIDERS: Nurse Practitioner Family; Admitting Provider Family Medicine; Emergency Provider Physician Assistant; PCP Family Medicine; Visit Provider Family Medicine
DX: A41.9 Sepsis, unspecified organism (principal); J18.9 Pneumonia, unspecified organism; J96.21 Acute and chronic respiratory failure with hypoxia; J96.22 Acute and chronic respiratory failure with hypercapnia; I47.29 Other ventricular tachycardia; T84.84XA Pain due to internal orthopedic prosthetic devices, implants and grafts, initial encounter; E86.1 Hypovolemia; D50.0 Iron deficiency anemia secondary to blood loss (chronic); E87.6 Hypokalemia; G47.00 Insomnia, unspecified; Z79.891 Long term (current) use of opiate analgesic; K52.831 Collagenous colitis; B35.1 Tinea unguium; F32.A Depression, unspecified; R27.0 Ataxia, unspecified; E78.5 Hyperlipidemia, unspecified; M79.7 Fibromyalgia; J84.89 Other specified interstitial pulmonary diseases; F12.90 Cannabis use, unspecified, uncomplicated; S72.142S Displaced intertrochanteric fracture of left femur, sequela; Z74.09 Other reduced mobility
CPT/HCPCS: 00123; 36415; 71275; 80048; 80053; 82805; 84145; 87040; 87077; 87637; 87641; 90656; 92610; 93005; 94640; 96365; 96366; 96367; 96368; 96375; 97110; 97162; 97530; 99285; J1650; 71046; 80202; 81003; 81015; 83540; 83550; 83605; 83735; 84484; 85025; 87070; 87186; 87205; 93010; 94667; 94668; 94760; 99223; 99231; 99232; 99239; J0131; J0696; J2919; J3372; J3475; J3490; J7613; J7614; J7620

== ENCOUNTER 2024-05-27 08:55 | Inpatient (IN) | payer MEDICARE, MEDICAID, SELFPAY ==
[2024-05-27] VITALS (79 sets, daily range): BP systolic 64–148; BP diastolic 18–122; PULSE 66–109; RESP 5–28; TEMP 36.3–36.8; O2SAT 82–100
--- NOTE | 2024-05-27 08:45 | RT.EKG_ITS ---
APPROVED REPORT Exam: Resting ECG Reason for Exam: altered mental status Patient Location: E HR:84 bpm ECG Measurements Heart Rate 84 AXIS VA 165 P 22 QRSd 92 QRS 6 QT 401 T 9 QTc 455 Conclusion Sinus rhythm, rate 84 No interval abnormalities, PACs No STEMI
--- NOTE | 2024-05-27 09:20 | W.ED.GENAD ---
Discharge Plan Disposition Patient Disposition: Admit to [facility] Condition: Improving Discharge Details Chief Complaint: GenMedical Clinical Impression: Sepsis associated hypotension, Pneumonia, Left hip pain, Acute on chronic respiratory failure with hypoxia and hypercapnia, Anemia, Hyperlipidemia, Interstitial lung disease Primary Care Provider: Iesha Leary ED Provider: Yoselin George Home Meds and New Rx's Prescriptions: No Action Balanced B-100 Complex 100 mg tablet extended release 1 tab PO DAILY vitamin A 2,400 mcg capsule 2,400 mcg PO DAILY PRN ginkgo biloba 40 mg tablet 240 mg PO DAILY PRN Rx Instructions: give with meal/snack magnesium 250 mg tablet 500 mg PO BID zinc acetate 25 mg (zinc) capsule 100 mg PO BID vitamin E (dl, acetate) 45 mg (100 unit) capsule 180 mg PO DAILY loratadine [Allergy Relief (loratadine)] 10 mg tablet 10 mg PO DAILY polyethylene glycol 3350 17 gram/dose powder 17 g PO DAILY Neuriva Original 100-100 mg capsule 1 cap PO DAILY PRN calcium carbonate [Tums Ultra] 400 mg calcium (1,000 mg) tablet,chewable 2,000 mg PO DAILY PRN Rx Instructions: take 2 tablets (2000mg) by mouth daily *patient will supply sucralfate 1 gram tablet 1 g PO TID omeprazole 20 mg capsule,delayed release(DR/EC) 20 mg PO BID Qty: 60 12RF bisacodyl 10 mg suppository 10 mg UT DAILY PRN multivitamin Tablet 1 tab PO DAILY benzonatate 100 mg capsule 100 mg PO BID montelukast 10 mg tablet 10 mg PO DAILY Qty: 90 4RF ferrous sulfate 325 MG tablet 325 mg PO TID cholecalciferol (vitamin D3) [Vitamin D3] 400 UNIT tablet 50 mcg PO DAILY glucosamine sulfate 2KCl 1,000 MG tablet 500 mg PO BID ascorbic acid (vitamin C) 1,000 mg tablet 1 g PO BID medroxyprogesterone [Provera] 2.5 MG tablet 2.5 mg PO DAILY duloxetine [Cymbalta] 60 mg capsule,delayed release(DR/EC) 60 mg PO BID quetiapine 50 mg tablet 50 mg PO QPM Patient Comments: TAKE ONE TABLET BY MOUTH EVERY EVENING trazodone 100 mg tablet 200 mg PO HS Patient Comments: TAKE 2 TABLETS BY MOUTH EVERY NIGHT cyclosporine 0.05 % Dropperette 8 drp OU BID Qty: 30 0RF morphine concentrate 20 mg/mL syringe 10 mg sublingual ONCE ipratropium-albuterol 0.5 mg-3 mg(2.5 mg base)/3 mL solution for nebulization 3 ml INHALATION TID potassium chloride 20 MEQ tablet,ER particles/crystals 20 meq PO TID Rx Instructions: 20 MG PO TID DIRECTED fluticasone propionate 50 mcg/actuation spray,suspension 1 spray INTRANASAL BID Patient Comments: SPRAY ONE SPRAY IN EACH NOSTRIL TWICE A DAY Rx Instructions: ONE SPRAY EACH NOSTRIL BID morphine 30 mg tablet extended release 30 mg PO Q8H MDD 45 calcitonin (salmon) 200 unit/actuation [place],Non-Aerosol 1 spray NS DAILY Rx Instructions: 1 spray in left nostril daily- alternate nostrils every other day albuterol sulfate [Ventolin HFA] 90 mcg/actuation Hfa Aerosol Inhaler 2 puff inhalation TID midodrine 5 mg tablet 5 mg PO TID pregabalin 75 mg capsule 75 mg PO TID hydromorphone 2 mg tablet 2 mg PO HS MDD 1 Rx Instructions: Hold if patient refuses or staff feels she is somulent doxycycline hyclate 100 mg Capsule 100 mg PO Q12H Qty: 8 0RF sulfamethoxazole-trimethoprim [Bactrim] 400-80 mg tablet 1 tab PO TID Qty: 12 0RF HPI General Mode of arrival: EMS. Date/Time Provider Initiated Documentation: 05/27/24 09:04. Limitations to Documentation: no limitations. Information obtained by: patient, EMS and old records reviewed. HPI Narrative: HPI: This is an 83-year-old female patient with a history of chronic respiratory failure on 2 and half liters of oxygen at baseline, interstitial lung disease, history of anemia, hyperlipidemia, and a left femur fracture half a year ago, who was brought in by EMS with altered mental status and cough. Of note, the patient had a recent admission to this hospital, discharged home on May 21, for community-acquired pneumonia. She was sent home on Bactrim and doxycycline, and per nursing facility records she completed both of those courses of antibiotics yesterday. EMS was summoned initially for pneumonia with ongoing cough, and on arrival the facility states that the patient's mental status has not been typical for her. There were no additional details as to specific alterations that they noted, and I did attempt to obtain collateral information by calling the facility directly, and was unable to get in touch with any care providers by phone at the time of my initial evaluation. They did call back and I did speak to the providers, who reports that overnight the patient was briefly made comfort measures only (this does not appear to be the patient's wishes, though she did receive 2 doses of 10 mg morphine as well as a dose of Ativan) which was immediately rescinded upon the daytime provider taking over care of this morning. They noted that the patient was having increasing work of breathing, a worsening cough, and were concerned for pneumonia and sent her back to the emergency department for evaluation. The patient reports that she has noted an ongoing junky cough, has had some persistent hip pain from her old injury, but is otherwise in her normal state of health. EMS reports that the facility was also concerned for urinary tract infection in this patient. No reported fevers per EMS, at her baseline oxygen requirement and saturating 100%. Exam: Gen: Awake and alert, in no apparent distress. Answers questions slowly but appropriately HEENT: Non-icteric sclera, PERRL Neck: Supple, no meningismus Lungs: No apparent respiratory distress, normal respiratory effort. A junky sounding cough is appreciated during this provider's examination, lung sounds coarse bilaterally CV: Appears well perfused, heart with regular rate and rhythm, strong distal pulses Abdomen: Non-distended, soft, nontender. No peripheral edema or unilateral calf swelling MSK: Moves 4 extremities without apparent limitation in ROM Skin: Visualized skin without rashes, cyanosis. Neuro: Awake, alert, and oriented to person, place. No obvious focal deficits or facial asymmetry. Speaks in full, clear sentences. Psych: Appropriate for situation. MDM: This is an 83-year-old female patient brought in by EMS with alteration in mental status and a recent diagnosis of pneumonia. Differential includes but is not limited to infectious etiologies including recurrent pneumonia, urinary tract infection, bacteremia, upper respiratory viruses, and I certainly considered meningitis and encephalitis though the patient is reassuringly fever free, well-appearing, and without meningismus. I also considered metabolic and electrolyte derangements, anemia, kidney injury, liver dysfunction. The patient had a slightly low blood pressure at 93 systolic, with no tachycardia or fever to suggest sepsis or septic shock. We will obtain laboratory studies to include CBC, CMP, troponin, procalcitonin, Fluvid, urinalysis, and blood cultures. I will obtain a chest x-ray. ED Course: I reviewed the patient's laboratory studies, which show no leukocytosis, and anemia to 9.2 which has been present on prior laboratory studies and no thrombocytopenia. Chemistry panel without electrolyte derangement, kidney injury, or evidence of liver dysfunction. VBG demonstrates hypercapnia to 68 without associated acidosis. The urinalysis was noninfectious, Pro-Hernandez is low. The patient was persistently hypotensive to the 60s and 70s systolics, but did not respond with initial fluid resuscitation. The patient had very difficult peripheral IV access and ultimately required central line placement and arterial line placement as noted below, and had improvement in her blood pressures after her first liter of fluids. She did not require initiation of pressors. Chest x-ray shows right lobar pneumonia slightly increased from scans obtained at the prior admission. The patient additionally was noted to have appropriately placed right IJ with tip in the right atrium. I provided the patient with cefepime and vancomycin given her recent hospitalization and recurrence of respiratory symptoms. I am most concerned for sepsis of a pulmonary origin as the cause of her symptoms today. She was graciously accepted to our hospitalist service by Dr. Montilla and was transferred from our department without incident. Yoselin George MD Related Data Home Medications ?Medication ?Instructions ?Recorded ?Confirmed cholecalciferol (vitamin D3) 10 50 mcg PO DAILY 12/06/13 05/27/24 mcg (400 unit) tablet (Vitamin D3) ferrous sulfate 325 mg (65 mg 325 mg PO TID 12/06/13 05/27/24 iron) tablet glucosamine sulfate 2KCl 1,000 mg 500 mg PO BID 12/06/13 05/27/24 tablet medroxyprogesterone 2.5 mg tablet 2.5 mg PO DAILY 11/18/16 05/25/24 (Provera) potassium chloride 20 mEq 20 meq PO TID 11/25/16 05/27/24 tablet,extended release(part/cryst) fluticasone propionate 50 1 spray intranasal BID 09/19/20 05/27/24 mcg/actuation nasal spray,suspension quetiapine 50 mg tablet 50 mg PO QPM 03/19/22 05/27/24 trazodone 100 mg tablet 200 mg PO HS 03/19/22 05/27/24 cyclosporine 0.05 % eye drops in a 8 drp OU BID #30 ea 08/02/23 05/27/24 dropperette ginkgo biloba 40 mg tablet 240 mg PO DAILY PRN 10/18/23 05/27/24 magnesium 250 mg tablet 500 mg PO BID 10/18/23 05/27/24 vit B complex 100 combo no.2 100 1 tab PO DAILY 10/18/23 05/27/24 mg tablet,extended release (Balanced B-100 Complex) vitamin A 2,400 mcg capsule 2,400 mcg PO DAILY PRN 10/18/23 05/27/24 vitamin E (dl, acetate) 45 mg (100 180 mg PO DAILY 10/18/23 05/25/24 unit) capsule zinc acetate 25 mg (zinc) capsule 100 mg PO BID 10/18/23 05/27/24 ascorbic acid (vitamin C) 1,000 mg 1 g PO BID 01/23/24 05/27/24 tablet loratadine 10 mg tablet (Allergy 10 mg PO DAILY 01/23/24 05/27/24 Relief (loratadine)) duloxetine 60 mg capsule,delayed 60 mg PO BID 03/20/24 05/27/24 release (Cymbalta) calcium carbonate (Tums Ultra) 2,000 mg PO DAILY PRN 04/09/24 05/27/24 coffee extract 100 mg-phosphatidyl 1 cap PO DAILY PRN 04/09/24 05/27/24 serine 100 mg capsule (Neuriva Original) polyethylene glycol 3350 17 17 g PO DAILY 04/09/24 05/27/24 gram/dose oral powder benzonatate 100 mg capsule 100 mg PO BID 04/29/24 05/27/24 bisacodyl 10 mg rectal suppository 10 mg UT DAILY PRN 04/29/24 05/27/24 multivitamin 1 tab PO DAILY 04/29/24 05/27/24 montelukast 10 mg tablet 10 mg PO DAILY #90 tabs 05/02/24 05/27/24 omeprazole 20 mg capsule,delayed 20 mg PO BID #60 caps 05/13/24 05/27/24 release sucralfate 1 gram tablet 1 g PO TID 05/13/24 05/27/24 albuterol sulfate 90 mcg/actuation 2 puff inhalation TID 05/17/24 05/27/24 aerosol inhaler (Ventolin HFA) calcitonin (salmon) 200 1 spray NS DAILY 05/17/24 05/27/24 unit/actuation nasal spray midodrine 5 mg tablet 5 mg PO TID 05/17/24 05/27/24 morphine 30 mg tablet,extended 30 mg PO Q8H 05/17/24 05/27/24 release hydromorphone 2 mg tablet 2 mg PO HS pain 05/18/24 05/27/24 pregabalin 75 mg capsule 75 mg PO TID 05/18/24 05/27/24 doxycycline hyclate 100 mg capsule 100 mg PO Q12H #8 caps 05/20/24 05/25/24 sulfamethoxazole 400 1 tab PO TID #12 tabs 05/20/24 05/25/24 mg-trimethoprim 80 mg tablet (Bactrim) ipratropium 0.5 mg-albuterol 3 mg 3 ml inhalation TID 05/27/24 05/27/24 (2.5 mg base)/3 mL nebulization soln morphine concentrate 20 mg/mL oral 10 mg sublingual ONCE 05/27/24 05/27/24 syringe (FOR ORAL USE ONLY) Previous Rx's ?Medication ?Instructions ?Recorded cyclosporine 0.05 % eye drops in a 8 drp OU BID #30 ea 08/02/23 dropperette montelukast 10 mg tablet 10 mg PO DAILY #90 tabs 05/02/24 omeprazole 20 mg capsule,delayed 20 mg PO BID #60 caps 05/13/24 release doxycycline hyclate 100 mg capsule 100 mg PO Q12H #8 caps 05/20/24 sulfamethoxazole 400 1 tab PO TID #12 tabs 05/20/24 mg-trimethoprim 80 mg tablet (Bactrim) Allergies Allergy/AdvReac Type Severity Reaction Status Date / Time fentanyl AdvReac Nausea Verified 05/27/24 09:48 General Stated Complaint: GenMedical MELISSA: 3 Course Vital Signs Vital signs: Vital Signs Temperature 36.8 C 05/27/24 08:56 Pulse 78 05/27/24 08:56 Respiratory Rate 20 05/27/24 08:56 Blood Pressure 92/41 L 05/27/24 08:56 Pulse Oximetry 97 05/27/24 08:56 Temperature 36.8 C 05/27/24 08:56 Temperature Source Oral 05/27/24 08:56 Pulse 78 05/27/24 08:56 Respiratory Rate 20 05/27/24 08:56 Blood Pressure 92/41 L 05/27/24 08:56 Blood Pressure Position Supine 05/27/24 08:56 Pulse Oximetry 97 05/27/24 08:56 Oxygen Delivery Method Nasal Cannula 05/27/24 08:56 Oxygen Flow Rate 2.5 05/27/24 08:56 Lab/Test Results Lab/Test Results: 05/27/24 09:08 Blood Blood Culture - Pending 05/27/24 09:08 Blood Blood Culture - Pending Procedures Arterial Line Time Out Performed: No Size (Gauge): 20 Technique Used: direct puncture technique Post-Procedure: line sutured into place and dry sterile dressing placed Patient Tolerated Procedure: well and no complications Complications: none Site: left and radial Central Line Placement Right IJ: Time Out Performed: No Patient Placed on Monitor/Pulse Ox: Yes MD Prep: mask, gown and gloves Central Line Prep: Chlorhexidine scrub and sterile drapes applied Local Anesthetic: Lidocaine 1% Amount of anesthesia used (mL): 1 Ultrasound Used for Placement: Yes Central Line Lumen Inserted: triple Post Procedure: good blood return, all ports aspirated, flushed, capped and sutured in place with 3-0 nylon Post Procedure X-Ray: tip of catheter in good position Patient Tolerated Procedure: well and no complications Complications: hematoma at puncture site and transient dysrhythmias during insertion Medical Decision Making Quality:SDOH Health Related Social Needs: No Data to Display Critical Care Time Critical Care Time Critical Care Time: Yes Total Critical Care Time: 45 Attestation: Upon my evaluation, this patient had a high probability of imminent or life-threatening deterioration due to sepsis, presumed pneumonia, which required my direct attention, intervention, and personal management. I have personally provided 45 minutes of critical care time exclusive of time spent on separately billable procedures. Time includes review of laboratory data, radiology results, discussion with consultants, and monitoring for potential decompensation. Interventions were performed as documented above. Yoselin George MD [facility] All Active Problems (Updated 05/27/24 @ 12:46 by Yoselin George MD) Pneumonia (Acute) Sepsis associated hypotension (Acute) Nail dystrophy (Acute) Hypokalemia (Acute) Acute on chronic respiratory failure with hypoxia and hypercapnia (Acute) Respiratory failure (Acute) Pneumonia (Acute) Chronic hypoxic respiratory failure (Acute) Displaced intertrochanteric fracture of left femur, subsequent encounter for closed fracture with malunion (Acute) Pain due to internal orthopedic prosthetic device (Acute) Lung disease (Acute) Left hip pain (Acute) Interstitial lung disease (Acute) secondary to chronic aspiration Seasonal allergies (Acute) Skin ulcer (Acute) Community acquired pneumonia (Acute) DNR (do not resuscitate) (Acute) E. 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 fell down and could not get up Morbid obesity (Chronic) Allergic rhinitis (Chronic) Hyperlipidemia (Chronic) Fibromyalgia (Chronic) DJD (degenerative joint disease) (Chronic) Gastroesophageal reflux disease (Chronic) Hiatal hernia (Chronic) Irritable bowel syndrome (Chronic) History of surgery (Chronic) a. S/P open right ankle fracture/dislocation. b. Left knee arthroscopy. c. Right wrist fracture repair. d. T/A as a child. Dehydration, mild (Acute 09/22/14) Housing or economic circumstance (Chronic 09/22/14) a. No heat for 1-1/2 days H/O fall (Chronic) Anemia (Chronic) Alcohol withdrawal delirium (Acute 09/22/14) Rhabdomyolysis (Acute 09/22/14) Ataxia (Chronic) Onychomycosis (Chronic) Depression (Chronic) Medical History Frequent falls Alcohol withdrawal NSIP (nonspecific interstitial pneumonia) Fracture of right inferior pubic ramus Fracture of right superior pubic ramus ACP (advance care planning) Laceration of skin of right forearm Skin ulcer of lower leg Laceration of arm, right, complicated Fractured pelvis T12 compression fracture Acute exacerbation of chronic low back pain Fall Person living alone (09/22/14) Hiatal hernia IBS (irritable bowel syndrome) Hypertension Allergic rhinitis GERD (gastroesophageal reflux disease) DJD (degenerative joint disease) Hyperlipidemia Hypercholesterolemia Fibromyalgia Depression Anemia Alcohol abuse Insomnia Surgical History Tonsillectomy and adenoidectomy Repair fracture right wrist ORIF right ankle Colonoscopy - MAC (11/18/16) Arthroplasty of knee left Family History Mother Dementia Maternal Aunt Diabetes Social History Smoking/Tobacco Use Status: Former Tobacco Use Smoking risk assessment performed?: Yes Alcohol Intake: current Alcohol Intake frequency: 0-2 drinks per day Alcohol type: wine Counseling given: Yes Details: 1-2 bottle of wine/day Drug use: Daily Substance use type: does not use and marijuana Details: two tokes for sleep Housing: detention Do you feel safe at home: Yes Do you feel safe in your relationship?: Yes Additional Social history: Lives alone in home in [place], has a cat. States hasn't been out of house for a year. One sister in [place]
[2024-05-27 09:50] LABS: Abs Immature Grans 0.08 10^3/uL (0.0-0.06); Absolute Basophil Count 0.01 10^3/uL (0.0-0.2); Absolute Eosinophil Count 0.27 10^3/uL (0.0-0.7); Absolute Monocyte Count 0.96 10^3/uL (0.1-0.8); Absolute Neutrophil Count 5.01 10^3/uL (1.2-6.7); Basophils % 0.1 %; Eosinophils % 3.4 %; HCT 29.9 % (36.0-46.0); HGB 9.2 g/dL (11.2-15.7); Lymphocytes % 20.2 %; MCH 29.1 pg (27.0-33.0); MCHC 30.8 % (32.0-36.0); MCV 95 fL (80-95); MPV 10.9 fL (8.0-11.0); Monocytes % 12.1 %; Neutrophils % 63.2 %; Platelet Count 219 10^3/uL (130-400); RBC 3.16 10^6/uL (3.93-5.22); RDW 15.1 % (11.7-14.6); RDW-SD 51.7 fL; WBC 7.93 10^3/uL (4.4-10.8)
[2024-05-27 10:22] LABS: ALT 27 U/L (14-59); AST 19 U/L (15-37); Alkaline Phosphatase 100 U/L (46-116); Anion Gap 6.8 mmol/L (3-11); BUN 10 mg/dL (7-18); Bilirubin, Total 0.53 mg/dL (0.2-1.0); CO2 31.2 mmol/L (21.0-32.0); CREATININE 0.5 mg/dL (0.55-1.02); Calcium 8.5 mg/dL (8.5-10.1); Chloride 104 mmol/L (98-107); Glucose 95 mg/dL (74-106); Sodium 142 mmol/L (136-145); Total Protein 5.6 g/dL (6.4-8.2); Troponin I 6 ng/L (<or=51)
[2024-05-27 10:43] LABS: BE (Venous) 7 mmol/L (-2-3); HCO3 (Venous) 33 mmol/L (23-28); O2 Sat (Venous) 48 %; TCO2 (Venous) 32 mmol/L (24-29); pH (Venous) 7.32 (7.31-7.41); pO2 (Venous) 28 mmHg
[2024-05-27 10:44] LABS: pCO2 (Venous) 64 mmHg (41-51)
--- NOTE | 2024-05-27 10:49 | NUR.NOTE ---
Marzena Pena [phone] Nursing Note:
[2024-05-27 10:53] LABS: Bilirubin Negative (Negative); Blood Negative (Negative); Clarity Clear (Clear); Glucose Negative (Negative); Ketones Negative (Negative); Leukocyte Esterase Negative (Negative); Nitrite Negative (Negative); Specific Gravity >= 1.030 (1.005-1.025); Urobilinogen 0.2 mg/dL (Up to 0.2); pH 5.5 (5-8)
[2024-05-27 10:59] LABS: Procalcitonin 0.1 ng/mL
[2024-05-27 11:20] LABS: COVID-19 PCR Negative (Negative); Influenza A PCR Negative (Negative); Influenza B PCR Negative (Negative); RSV PCR Negative (Negative)
[2024-05-27 11:21] LABS: Source Nasopharynx
--- NOTE | 2024-05-27 11:58 | DI.RAD_ITS ---
Exam(s) XR PORTABLE CHEST AP POST LINE EXAM: XR PORTABLE CHEST AP POST LINE CLINICAL HISTORY: Cough, SOB. TECHNIQUE: 2D digital imaging was performed. COMPARISON: CT CT CHEST PE CTA from 05/17/2024 CR XR CHEST 2V PA LATERAL from 05/17/2024 FINDINGS: Single AP portable view. Heart size is upper normal. Prominent retrocardiac hiatal hernia again noted, as evident on prior CT scan. Right jugular central line is in place. Its distal tip is in the lower right atrium. There is significant area of infiltrate in the right upper lobe parahilar region as well as some invo lvement of the right lower lobe. CT scan of 05/17/2024 also revealed ipsilateral hilar and mediastin al adenopathy as well as subcarinal adenopathy. There is also some increased infiltrate in the right lung base. Findings are superimposed upon chron ic interstitial lung disease. No obvious pleural effusions. IMPRESSION: Large right lung infiltrate, predominately right upper lobe. However also involving right lower lobe . Large retrocardiac hiatal hernia again noted. Distal tip of right jugular central line is in the lower right atrium. DATA REPOSITORY: RADIATION DOSE DELIVERED:
[2024-05-27] MEDS: CEFEPIME 2 GM in Normal Saline 50 ML IVPB (12:00)
[2024-05-27 12:10] LABS: Troponin I 15 ng/L (<or=51)
[2024-05-27] MEDS: Lactated Ringers 1,000 ML 1000 ML IV (12:38)
[2024-05-27] MEDS: VANCOMYCIN/WATER (PEG) 2 GM/400 ML BAG IVPB (12:39)
[2024-05-27 12:52] LABS: BE 0 mmol/L (-2-3); HCO3 27 mmol/L (22-26); pCO2 56 mmHg (35-45); pH 7.29 (7.35-7.45); pO2 78 mmHg (80-105); sO2 93 % (95-98); tCO2 26 mmol/L (23-27)
[2024-05-27 12:55] LABS: FIO2 21 %; FIO2L 92 L
--- NOTE | 2024-05-27 12:55 | HPE_ITS ---
Date of service: 05/27/24 Time of Service: 13:35 Assessment and Plan Assessment and plan (1) Hospital acquired PNA: Status: Acute Assessment and plan: - Presumed hospital-acquired pneumonia given recent hospitalization for community-acquired pneumonia and completing appropriate course of antibiotics -Not associated with sepsis -Continue vancomycin and cefepime started in the emergency department -Follow-up blood cultures (2) Hypotension: Status: Acute Assessment and plan: - Patient has a history of chronic hypotension and was on midodrine at previous hospitalization -Given question of patient being briefly placed 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, and rapidly responded to 1 L LR, it is also possible that patient may not have been given her home midodrine -Will continue home midodrine and monitor blood pressures (3) Chronic hypoxic respiratory failure: Status: Acute Assessment and plan: - Currently on home 2.5 L nasal cannula, continue (4) Anemia: Status: Chronic Assessment and plan: - Continue on iron supplementation Qualifiers: Anemia type: other cause Qualified Code(s): D63.8 - Anemia in other chronic diseases classified elsewhere (5) Gastroesophageal reflux disease: Status: Chronic Assessment and plan: - Continue PPI Qualifiers: Esophagitis presence: esophagitis presence not specified Qualified Code(s): K21.9 - Gastro-esophageal reflux disease without esophagitis (6) Chronic pain: Status: Chronic Assessment and plan: - Continue home opiate regimen History of Present Illness History of Present Illness Chief Complaint: cough Narrative: 83-year-old female with a past medical history of chronic hypoxic respiratory failure on 2 L nasal cannula secondary to interstitial lung disease, anemia, hyperlipidemia, recent hospitalization and discharge on May 21, 2024 for community-acquired pneumonia presents from her long-term living facility for concerns of altered mental status and cough. During previous hospitalization patient was treated for community-acquired pneumonia and was sent home on an appropriate course of duration of doxycycline and Bactrim for which she completed. However, over the last few days particularly earlier this morning it was noted that the patient had change in her mental status. This information is according to EMS as ED provider did attempt to discuss this patient with providers at the facility but were unavailable at the time. However, ED provider was able to get report that the overnight physician had made the patient GRINDING MACHINE TENDER despite this not being the patient's wishes and this was immediately rescinded upon daytime provider taking over earlier this morning prior to patient being transferred to the emergency department. Patient denied any shortness of breath, lightheadedness, dizziness, chest pain, fevers, nausea vomiting or diarrhea. In the emergency department the patient noted she had an ongoing junky cough and also complained of her usual baseline chronic pain but no other complaints. Pulse was noted as being in the 70s, she was afebrile, respiratory rate was in the low 20s but she was noted as having repeated blood pressures systolic under 80 for which she was given 1 L of LR which improved her blood pressures up to 106/54. CBC was unremarkable, and patient's oxygen requirements remained at her baseline 2 to 2-1/2 L nasal cannula. However, chest x-ray showed large right lung infiltrate predominantly right upper lobe that is also involving the right lower lobe appears to be larger than previous image during last hospitalization. Given the increase in size of this infiltrate emergency room physician initiated vancomycin and cefepime, and paged hospitalist for admission for patient with presumed hospital-acquired pneumonia and hypotension but does not meet sepsis criteria at this time. Review of Systems All systems reviewed & are unremarkable except as noted in HPI and below PFSH All Active Problems (Updated 05/27/24 @ 13:45 by CASSIE NEGRON) Chronic pain (Chronic) Hypotension (Acute) Hospital acquired PNA (Acute) Pneumonia (Acute) Sepsis associated hypotension (Acute) Nail dystrophy (Acute) Hypokalemia (Acute) Acute on chronic respiratory failure with hypoxia and hypercapnia (Acute) Respiratory failure (Acute) Pneumonia (Acute) Chronic hypoxic respiratory failure (Acute) Displaced intertrochanteric fracture of left femur, subsequent encounter for closed fracture with malunion (Acute) Pain due to internal orthopedic prosthetic device (Acute) Lung disease (Acute) Left hip pain (Acute) Interstitial lung disease (Acute) secondary to chronic aspiration Seasonal allergies (Acute) Skin ulcer (Acute) Community acquired pneumonia (Acute) DNR (do not resuscitate) (Acute) E. 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 fell down and could not get up Morbid obesity (Chronic) Allergic rhinitis (Chronic) Hyperlipidemia (Chronic) Fibromyalgia (Chronic) DJD (degenerative joint disease) (Chronic) Gastroesophageal reflux disease (Chronic) Hiatal hernia (Chronic) Irritable bowel syndrome (Chronic) History of surgery (Chronic) a. S/P open right ankle fracture/dislocation. b. Left knee arthroscopy. c. Right wrist fracture repair. d. T/A as a child. Dehydration, mild (Acute 09/22/14) Housing or economic circumstance (Chronic 09/22/14) a. No heat for 1-1/2 days H/O fall (Chronic) Anemia (Chronic) Alcohol withdrawal delirium (Acute 09/22/14) Rhabdomyolysis (Acute 09/22/14) Ataxia (Chronic) Onychomycosis (Chronic) Depression (Chronic) Medical History Frequent falls Alcohol withdrawal NSIP (nonspecific interstitial pneumonia) Fracture of right inferior pubic ramus Fracture of right superior pubic ramus ACP (advance care planning) Laceration of skin of right forearm Skin ulcer of lower leg Laceration of arm, right, complicated Fractured pelvis T12 compression fracture Acute exacerbation of chronic low back pain Fall Person living alone (09/22/14) Hiatal hernia IBS (irritable bowel syndrome) Hypertension Allergic rhinitis GERD (gastroesophageal reflux disease) DJD (degenerative joint disease) Hyperlipidemia Hypercholesterolemia Fibromyalgia Depression Anemia Alcohol abuse Insomnia Surgical History Tonsillectomy and adenoidectomy Repair fracture right wrist ORIF right ankle Colonoscopy - MAC (11/18/16) Arthroplasty of knee left Family History Mother Dementia Maternal Aunt Diabetes Social History Smoking/Tobacco Use Status: Former Tobacco Use Smoking risk assessment performed?: Yes Alcohol Intake: current Alcohol Intake frequency: 0-2 drinks per day Alcohol type: wine Counseling given: Yes Details: 1-2 bottle of wine/day Drug use: Daily Substance use type: does not use and marijuana Details: two tokes for sleep Housing: senior care Do you feel safe at home: Yes Do you feel safe in your relationship?: Yes Additional Social history: Lives alone in home in [facility], has a cat. States hasn't been out of house for a year. One sister in [place] Meds Allergies and Home Medications Allergies Allergy/AdvReac Type Severity Reaction Status Date / Time fentanyl AdvReac Nausea Verified 05/27/24 09:48 Home Medications ?Medication ?Instructions ?Recorded ?Confirmed ?Type cholecalciferol (vitamin D3) 10 50 mcg PO DAILY 12/06/13 05/27/24 History mcg (400 unit) tablet (Vitamin D3) ferrous sulfate 325 mg (65 mg 325 mg PO TID 12/06/13 05/27/24 History iron) tablet glucosamine sulfate 2KCl 1,000 mg 500 mg PO BID 12/06/13 05/27/24 History tablet medroxyprogesterone 2.5 mg tablet 2.5 mg PO DAILY 11/18/16 05/25/24 History (Provera) potassium chloride 20 mEq 20 meq PO TID 11/25/16 05/27/24 History tablet,extended release(part/cryst) fluticasone propionate 50 1 spray intranasal BID 09/19/20 05/27/24 History mcg/actuation nasal spray,suspension quetiapine 50 mg tablet 50 mg PO QPM 03/19/22 05/27/24 History trazodone 100 mg tablet 200 mg PO HS 03/19/22 05/27/24 History cyclosporine 0.05 % eye drops in a 8 drp OU BID #30 ea 08/02/23 05/27/24 Rx dropperette ginkgo biloba 40 mg tablet 240 mg PO DAILY PRN 10/18/23 05/27/24 History magnesium 250 mg tablet 500 mg PO BID 10/18/23 05/27/24 History vit B complex 100 combo no.2 100 1 tab PO DAILY 10/18/23 05/27/24 History mg tablet,extended release (Balanced B-100 Complex) vitamin A 2,400 mcg capsule 2,400 mcg PO DAILY PRN 10/18/23 05/27/24 History vitamin E (dl, acetate) 45 mg (100 180 mg PO DAILY 10/18/23 05/25/24 History unit) capsule zinc acetate 25 mg (zinc) capsule 100 mg PO BID 10/18/23 05/27/24 History ascorbic acid (vitamin C) 1,000 mg 1 g PO BID 01/23/24 05/27/24 History tablet loratadine 10 mg tablet (Allergy 10 mg PO DAILY 01/23/24 05/27/24 History Relief (loratadine)) duloxetine 60 mg capsule,delayed 60 mg PO BID 03/20/24 05/27/24 History release (Cymbalta) calcium carbonate (Tums Ultra) 2,000 mg PO DAILY PRN 04/09/24 05/27/24 History coffee extract 100 mg-phosphatidyl 1 cap PO DAILY PRN 04/09/24 05/27/24 History serine 100 mg capsule (Neuriva Original) polyethylene glycol 3350 17 17 g PO DAILY 04/09/24 05/27/24 History gram/dose oral powder benzonatate 100 mg capsule 100 mg PO BID 04/29/24 05/27/24 History bisacodyl 10 mg rectal suppository 10 mg NE DAILY PRN 04/29/24 05/27/24 History multivitamin 1 tab PO DAILY 04/29/24 05/27/24 History montelukast 10 mg tablet 10 mg PO DAILY #90 tabs 05/02/24 05/27/24 Rx omeprazole 20 mg capsule,delayed 20 mg PO BID #60 caps 05/13/24 05/27/24 Rx release sucralfate 1 gram tablet 1 g PO TID 05/13/24 05/27/24 History albuterol sulfate 90 mcg/actuation 2 puff inhalation TID 05/17/24 05/27/24 History aerosol inhaler (Ventolin HFA) calcitonin (salmon) 200 1 spray NS DAILY 05/17/24 05/27/24 History unit/actuation nasal spray midodrine 5 mg tablet 5 mg PO TID 05/17/24 05/27/24 History morphine 30 mg tablet,extended 30 mg PO Q8H 05/17/24 05/27/24 History release hydromorphone 2 mg tablet 2 mg PO HS pain 05/18/24 05/27/24 History pregabalin 75 mg capsule 75 mg PO TID 05/18/24 05/27/24 History doxycycline hyclate 100 mg capsule 100 mg PO Q12H #8 caps 05/20/24 05/25/24 Rx sulfamethoxazole 400 1 tab PO TID #12 tabs 05/20/24 05/25/24 Rx mg-trimethoprim 80 mg tablet (Bactrim) ipratropium 0.5 mg-albuterol 3 mg 3 ml inhalation TID 05/27/24 05/27/24 History (2.5 mg base)/3 mL nebulization soln morphine concentrate 20 mg/mL oral 10 mg sublingual ONCE 05/27/24 05/27/24 History syringe (FOR ORAL USE ONLY) Exam Narrative Exam Narrative: well appearing female sitting up in the bed in no acute distress, 2L NC in place, AOx4, heart RRR, lungs with course breath sounds in RRL, abdomen soft, non-tender, non-distended Results Labs 05/27/24 09:35 05/27/24 09:35 Labs: Laboratory Results - last 24 hr 05/27/24 05/27/24 05/27/24 09:35 09:46 09:49 WBC 7.93 RBC 3.16 L Hgb 9.2 L Hct 29.9 L MCV 95 MCH 29.1 MCHC 30.8 L RDW 15.1 H Plt Count 219 MPV 10.9 Immature Gran % 1.0 Neutrophils % 63.2 Lymphocytes % 20.2 Monocytes % 12.1 Eosinophils % 3.4 Basophils % 0.1 Nucleated RBC % 0.0 Absolute Neutrophils 5.01 Absolute Lymphocytes 1.60 Absolute Monocytes 0.96 H Absolute Eosinophils 0.27 Absolute Basophils 0.01 VBG pH Cancelled VBG pCO2 Cancelled VBG pO2 Cancelled VBG HCO3 Cancelled VBG Total CO2 Cancelled VBG O2 Saturation Cancelled VBG Base Excess Cancelled Sodium 142 Potassium 4.0 Chloride 104 Carbon Dioxide 31.2 Anion Gap 6.8 BUN 10 Creatinine 0.5 L Est GFR (CKD-EPI 2020) 93.00 Glucose 95 Calcium 8.5 Total Bilirubin 0.53 AST 19 ALT 27 Alkaline Phosphatase 100 Troponin I 6 Total Protein 5.6 L Albumin 2.0 L Procalcitonin 0.1 Urine Color Urine Clarity Urine pH Ur Specific [place] Urine Protein Urine Ketones Urine Blood Urine Nitrite Urine Bilirubin Urine Urobilinogen Ur Leukocyte Esterase Urine Glucose COVID-19 Source Nasopharynx SARS-CoV-2 (PCR) Negative Influenza Type A (PCR) Negative Influenza Type B (PCR) Negative RSV (PCR) Negative 05/27/24 05/27/24 05/27/24 10:34 10:40 11:40 WBC RBC Hgb Hct MCV MCH MCHC RDW Plt Count MPV Immature Gran % Neutrophils % Lymphocytes % Monocytes % Eosinophils % Basophils % Nucleated RBC % Absolute Neutrophils Absolute Lymphocytes Absolute Monocytes Absolute Eosinophils Absolute Basophils VBG pH 7.32 VBG pCO2 64 H* VBG pO2 28 VBG HCO3 33 H VBG Total CO2 32 H VBG O2 Saturation 48 VBG Base Excess 7 H Sodium Potassium Chloride Carbon Dioxide Anion Gap BUN Creatinine Est GFR (CKD-EPI 2020) Glucose Calcium Total Bilirubin AST ALT Alkaline Phosphatase Troponin I 15 Total Protein Albumin Procalcitonin Urine Color Yellow Urine Clarity Clear Urine pH 5.5 Ur Specific [place] >= 1.030 H Urine Protein Negative Urine Ketones Negative Urine Blood Negative Urine Nitrite Negative Urine Bilirubin Negative Urine Urobilinogen 0.2 Ur Leukocyte Esterase Negative Urine Glucose Negative COVID-19 Source SARS-CoV-2 (PCR) Influenza Type A (PCR) Influenza Type B (PCR) RSV (PCR) Last Vital Signs Temp 98.3 F 05/27/24 08:56 Pulse 79 05/27/24 12:32 Resp 23 05/27/24 12:50 BP 106/54 L 05/27/24 12:32 Pulse Ox 94 05/27/24 12:50 Time Spent Time spent with Patient: >75 minutes Time was spent: preparing to see the patient(eg.review tests), obtaining and/or reviewing separately otained hiistory, ordering medications,tests, procedures, referring, communicating with other health rn transitional care, indepentently interpreting results, counseling the patient and care coordination
[2024-05-27 12:56] LABS: Site Arterial Line
[2024-05-27 13:55] LABS: Troponin I 41 ng/L (<or=51)
[2024-05-27] MEDS: Albuterol/Ipratropium 3 ML UPD VIAL IH ×2 (15:05→20:05)
--- NOTE | 2024-05-27 15:29 | W.PC.ACHO ---
Registration Status: Primary Language: Preferred Language: ED Information & Data Chief Complaint GenMedical 05/27/24 10:37 Chief Complaint GenMedical 05/27/24 09:26 Triage Note rehab called ems for 05/27/24 08:56 pneumonia, possible ams, poss uti? Unclear report from [facility] Medical / Surgical History (Last Reviewed 05/20/24 @ 17:55 by Hailey Collier NP) Non-sustained ventricular tachycardia Hypotension Intertrochanteric fracture of left femur Insomnia Frequent falls Alcohol withdrawal NSIP (nonspecific interstitial pneumonia) Fracture of right inferior pubic ramus Fracture of right superior pubic ramus ACP (advance care planning) Laceration of skin of right forearm Skin ulcer of lower leg Laceration of arm, right, complicated Fractured pelvis T12 compression fracture Acute exacerbation of chronic low back pain Fall Person living alone (09/22/14) Hiatal hernia IBS (irritable bowel syndrome) Hypertension Allergic rhinitis GERD (gastroesophageal reflux disease) DJD (degenerative joint disease) Hyperlipidemia Hypercholesterolemia Fibromyalgia Depression Anemia Alcohol abuse Insomnia (Last Reviewed 05/20/24 @ 17:55 by Hailey Collier NP) Tonsillectomy and adenoidectomy Repair fracture right wrist ORIF right ankle Colonoscopy - MAC (11/18/16) Arthroplasty of knee Most Recent Vital Signs Temperature 36.3 C L 05/27/24 13:50 Temperature Source Temporal Artery Scan 05/27/24 13:50 Pulse 90 05/27/24 15:13 Pulse 81 05/27/24 14:01 Respiratory Rate 19 05/27/24 15:05 Respiratory Effort Incrsd Work of Breathing 05/27/24 13:50 Respiratory Depth Shallow 05/27/24 09:45 Respiratory Pattern Tachypnea 05/27/24 13:50 Blood Pressure 117/86 05/27/24 14:01 Blood Pressure Mean 94 05/27/24 14:01 Blood Pressure Position Sitting 05/27/24 13:50 Pulse Oximetry 93 05/27/24 15:14 Oxygen Delivery Method Room Air 05/27/24 15:14 Oxygen Flow Rate 0 05/27/24 15:14 Fraction of Inspired Oxygen (FIO2) 30 05/27/24 13:52 Allergies fentanyl Adverse Reaction (Verified 05/27/24 09:48) Nausea Precautions Isolation Standard precaution 05/27/24 10:37 Active Medications Generic Name Dose Route Start Last Admin Trade Name Freq PRN Reason Stop Dose Admin Albuterol/Ipratropium 3 ml 05/27/24 14:23 05/27/24 15:05 Albuterol/Ipratropium 3 Ml Upd Vial IH 3 ml TID MARI Administration IV IV Catheter Type [Right Triple Lumen Subclavian Internal Jugular] IV Catheter Type [Left Saline Lock Antecubital] IV Catheter Gauge [Left 20 Antecubital] Diet Orders Category Date Time Status Regular/Normal [DIET] Nutrition 05/27/24 Dinner Active Diagnostics 05/27/24 05/27/24 05/27/24 Range/Units 15:12 15:10 13:17 WBC (4.4-10.8) 10^3/uL RBC (3.93-5.22) 10^6/uL Hgb (11.2-15.7) g/dL Hct (36.0-46.0) % MCV (80-95) fL MCH (27.0-33.0) pg MCHC (32.0-36.0) % RDW (11.7-14.6) % Plt Count (130-400) 10^3/uL MPV (8.0-11.0) fL Immature Gran % % Neutrophils % % Lymphocytes % % Monocytes % % Eosinophils % % Basophils % % Nucleated RBC % (0.0-0.3) % Absolute Neutrophils (1.2-6.7) 10^3/uL Absolute Lymphocytes (1.2-3.4) 10^3/uL Absolute Monocytes (0.1-0.8) 10^3/uL Absolute Eosinophils (0.0-0.7) 10^3/uL Absolute Basophils (0.0-0.2) 10^3/uL ABG Sample Site Pending ABG pH Pending (7.35-7.45) ABG pCO2 Pending (35-45) mmHg ABG pO2 Pending (80-105) mmHg ABG HCO3 Pending (22-26) mmol/L ABG Total CO2 Pending (23-27) mmol/L ABG O2 Saturation Pending (95-98) % ABG Base Excess Pending (-2-3) mmol/L VBG pH Cancelled VBG pCO2 Cancelled VBG pO2 Cancelled VBG HCO3 Cancelled VBG Total CO2 Cancelled VBG O2 Saturation Cancelled VBG Base Excess Cancelled Oxygen Liter Flow L FiO2 % Sodium (136-145) mmol/L Potassium (3.5-5.1) mmol/L Chloride (98-107) mmol/L Carbon Dioxide (21.0-32.0) mmol/L Anion Gap (3-11) mmol/L BUN (7-18) mg/dL Creatinine (0.55-1.02) mg/dL Est GFR (CKD-EPI 2020) (mL/min/1.73m2) Glucose (74-106) mg/dL Calcium (8.5-10.1) mg/dL Total Bilirubin (0.2-1.0) mg/dL AST (15-37) U/L ALT (14-59) U/L Alkaline Phosphatase (46-116) U/L Troponin I 41 (<or=51) ng/L Total Protein (6.4-8.2) g/dL Albumin (3.4-5.0) g/dL Procalcitonin ng/mL Urine Color (Yellow) Urine Clarity (Clear) Urine pH (5-8) Ur Specific [place] (1.005-1.025) Urine Protein (Neg-Trace) mg/dL Urine Ketones (Negative) mg/dL Urine Blood (Negative) Urine Nitrite (Negative) Urine Bilirubin (Negative) Urine Urobilinogen (Up to 0.2) mg/dL Ur Leukocyte Esterase (Negative) Urine Glucose (Negative) mg/dL COVID-19 Source SARS-CoV-2 (PCR) (Negative) Influenza Type A (PCR) (Negative) Influenza Type B (PCR) (Negative) RSV (PCR) (Negative) 05/27/24 05/27/24 05/27/24 Range/Units 13:11 12:48 11:40 WBC (4.4-10.8) 10^3/uL RBC (3.93-5.22) 10^6/uL Hgb (11.2-15.7) g/dL Hct (36.0-46.0) % MCV (80-95) fL MCH (27.0-33.0) pg MCHC (32.0-36.0) % RDW (11.7-14.6) % Plt Count (130-400) 10^3/uL MPV (8.0-11.0) fL Immature Gran % % Neutrophils % % Lymphocytes % % Monocytes % % Eosinophils % % Basophils % % Nucleated RBC % (0.0-0.3) % Absolute Neutrophils (1.2-6.7) 10^3/uL Absolute Lymphocytes (1.2-3.4) 10^3/uL Absolute Monocytes (0.1-0.8) 10^3/uL Absolute Eosinophils (0.0-0.7) 10^3/uL Absolute Basophils (0.0-0.2) 10^3/uL ABG Sample Site Pending Arterial Line ABG pH Pending 7.29 L (7.35-7.45) ABG pCO2 Pending 56 H (35-45) mmHg ABG pO2 Pending 78 L (80-105) mmHg ABG HCO3 Pending 27 H (22-26) mmol/L ABG Total CO2 Pending 26 (23-27) mmol/L ABG O2 Saturation Pending 93 L (95-98) % ABG Base Excess Pending 0 (-2-3) mmol/L VBG pH VBG pCO2 VBG pO2 VBG HCO3 VBG Total CO2 VBG O2 Saturation VBG Base Excess Oxygen Liter Flow 92 L FiO2 21 % Sodium (136-145) mmol/L Potassium (3.5-5.1) mmol/L Chloride (98-107) mmol/L Carbon Dioxide (21.0-32.0) mmol/L Anion Gap (3-11) mmol/L BUN (7-18) mg/dL Creatinine (0.55-1.02) mg/dL Est GFR (CKD-EPI 2020) (mL/min/1.73m2) Glucose (74-106) mg/dL Calcium (8.5-10.1) mg/dL Total Bilirubin (0.2-1.0) mg/dL AST (15-37) U/L ALT (14-59) U/L Alkaline Phosphatase (46-116) U/L Troponin I 15 (<or=51) ng/L Total Protein (6.4-8.2) g/dL Albumin (3.4-5.0) g/dL Procalcitonin ng/mL Urine Color (Yellow) Urine Clarity (Clear) Urine pH (5-8) Ur Specific [place] (1.005-1.025) Urine Protein (Neg-Trace) mg/dL Urine Ketones (Negative) mg/dL Urine Blood (Negative) Urine Nitrite (Negative) Urine Bilirubin (Negative) Urine Urobilinogen (Up to 0.2) mg/dL Ur Leukocyte Esterase (Negative) Urine Glucose (Negative) mg/dL COVID-19 Source SARS-CoV-2 (PCR) (Negative) Influenza Type A (PCR) (Negative) Influenza Type B (PCR) (Negative) RSV (PCR) (Negative) 05/27/24 05/27/24 05/27/24 Range/Units 10:40 10:34 09:49 WBC (4.4-10.8) 10^3/uL RBC (3.93-5.22) 10^6/uL Hgb (11.2-15.7) g/dL Hct (36.0-46.0) % MCV (80-95) fL MCH (27.0-33.0) pg MCHC (32.0-36.0) % RDW (11.7-14.6) % Plt Count (130-400) 10^3/uL MPV (8.0-11.0) fL Immature Gran % % Neutrophils % % Lymphocytes % % Monocytes % % Eosinophils % % Basophils % % Nucleated RBC % (0.0-0.3) % Absolute Neutrophils (1.2-6.7) 10^3/uL Absolute Lymphocytes (1.2-3.4) 10^3/uL Absolute Monocytes (0.1-0.8) 10^3/uL Absolute Eosinophils (0.0-0.7) 10^3/uL Absolute Basophils (0.0-0.2) 10^3/uL ABG Sample Site ABG pH (7.35-7.45) ABG pCO2 (35-45) mmHg ABG pO2 (80-105) mmHg ABG HCO3 (22-26) mmol/L ABG Total CO2 (23-27) mmol/L ABG O2 Saturation (95-98) % ABG Base Excess (-2-3) mmol/L VBG pH 7.32 Cancelled VBG pCO2 64 H* Cancelled VBG pO2 28 Cancelled VBG HCO3 33 H Cancelled VBG Total CO2 32 H Cancelled VBG O2 Saturation 48 Cancelled VBG Base Excess 7 H Cancelled Oxygen Liter Flow L FiO2 % Sodium (136-145) mmol/L Potassium (3.5-5.1) mmol/L Chloride (98-107) mmol/L Carbon Dioxide (21.0-32.0) mmol/L Anion Gap (3-11) mmol/L BUN (7-18) mg/dL Creatinine (0.55-1.02) mg/dL Est GFR (CKD-EPI 2020) (mL/min/1.73m2) Glucose (74-106) mg/dL Calcium (8.5-10.1) mg/dL Total Bilirubin (0.2-1.0) mg/dL AST (15-37) U/L ALT (14-59) U/L Alkaline Phosphatase (46-116) U/L Troponin I (<or=51) ng/L Total Protein (6.4-8.2) g/dL Albumin (3.4-5.0) g/dL Procalcitonin ng/mL Urine Color Yellow (Yellow) Urine Clarity Clear (Clear) Urine pH 5.5 (5-8) Ur Specific [place] >= 1.030 H (1.005-1.025) Urine Protein Negative (Neg-Trace) mg/dL Urine Ketones Negative (Negative) mg/dL Urine Blood Negative (Negative) Urine Nitrite Negative (Negative) Urine Bilirubin Negative (Negative) Urine Urobilinogen 0.2 (Up to 0.2) mg/dL Ur Leukocyte Esterase Negative (Negative) Urine Glucose Negative (Negative) mg/dL COVID-19 Source SARS-CoV-2 (PCR) (Negative) Influenza Type A (PCR) (Negative) Influenza Type B (PCR) (Negative) RSV (PCR) (Negative) 05/27/24 05/27/24 Range/Units 09:46 09:35 WBC 7.93 (4.4-10.8) 10^3/uL RBC 3.16 L (3.93-5.22) 10^6/uL Hgb 9.2 L (11.2-15.7) g/dL Hct 29.9 L (36.0-46.0) % MCV 95 (80-95) fL MCH 29.1 (27.0-33.0) pg MCHC 30.8 L (32.0-36.0) % RDW 15.1 H (11.7-14.6) % Plt Count 219 (130-400) 10^3/uL MPV 10.9 (8.0-11.0) fL Immature Gran % 1.0 % Neutrophils % 63.2 % Lymphocytes % 20.2 % Monocytes % 12.1 % Eosinophils % 3.4 % Basophils % 0.1 % Nucleated RBC % 0.0 (0.0-0.3) % Absolute Neutrophils 5.01 (1.2-6.7) 10^3/uL Absolute Lymphocytes 1.60 (1.2-3.4) 10^3/uL Absolute Monocytes 0.96 H (0.1-0.8) 10^3/uL Absolute Eosinophils 0.27 (0.0-0.7) 10^3/uL Absolute Basophils 0.01 (0.0-0.2) 10^3/uL ABG Sample Site ABG pH (7.35-7.45) ABG pCO2 (35-45) mmHg ABG pO2 (80-105) mmHg ABG HCO3 (22-26) mmol/L ABG Total CO2 (23-27) mmol/L ABG O2 Saturation (95-98) % ABG Base Excess (-2-3) mmol/L VBG pH VBG pCO2 VBG pO2 VBG HCO3 VBG Total CO2 VBG O2 Saturation VBG Base Excess Oxygen Liter Flow L FiO2 % Sodium 142 (136-145) mmol/L Potassium 4.0 (3.5-5.1) mmol/L Chloride 104 (98-107) mmol/L Carbon Dioxide 31.2 (21.0-32.0) mmol/L Anion Gap 6.8 (3-11) mmol/L BUN 10 (7-18) mg/dL Creatinine 0.5 L (0.55-1.02) mg/dL Est GFR (CKD-EPI 2020) 93.00 (mL/min/1.73m2) Glucose 95 (74-106) mg/dL Calcium 8.5 (8.5-10.1) mg/dL Total Bilirubin 0.53 (0.2-1.0) mg/dL AST 19 (15-37) U/L ALT 27 (14-59) U/L Alkaline Phosphatase 100 (46-116) U/L Troponin I 6 (<or=51) ng/L Total Protein 5.6 L (6.4-8.2) g/dL Albumin 2.0 L (3.4-5.0) g/dL Procalcitonin 0.1 ng/mL Urine Color (Yellow) Urine Clarity (Clear) Urine pH (5-8) Ur Specific [place] (1.005-1.025) Urine Protein (Neg-Trace) mg/dL Urine Ketones (Negative) mg/dL Urine Blood (Negative) Urine Nitrite (Negative) Urine Bilirubin (Negative) Urine Urobilinogen (Up to 0.2) mg/dL Ur Leukocyte Esterase (Negative) Urine Glucose (Negative) mg/dL COVID-19 Source Nasopharynx SARS-CoV-2 (PCR) Negative (Negative) Influenza Type A (PCR) Negative (Negative) Influenza Type B (PCR) Negative (Negative) RSV (PCR) Negative (Negative) 05/27/24 10:11 Blood Culture - Pending Blood 05/27/24 09:35 Blood Culture - Pending Blood Intake and Output - 24 Hour Total 05/27/24 08:50 thru 05/27/24 14:49 Intake Total 1410 Output Total 600 Balance 810 Weight 90.8 kg Intake: IV 1410 Output: Urine 600 Other: Urine Color Light [place] Urine Appearance Clear Urinary Catheter Urinary Catheter Date of 05/27/24 Insertion [Urethral (Harris)] Time of insertion [Urethral ( 10:30 Harris)] Falls Risk Assessment History of Falls Previous History 05/27/24 13:50 Contributing Factors Confusion,Unstable, 05/27/24 13:50 Impairments,Incontinence, Medications Ambulatory Aids Uses ambulatory device + 05/27/24 13:50 Tubes/Lines With any additional score 05/27/24 13:50 Gait Evaluation W/any additional score 05/27/24 13:50 Cognition Cognitive impairment 05/27/24 13:50 Fall Total Score 115 05/27/24 13:50 Level of Risk Maximum Risk 05/27/24 13:50 Problems (Last Reviewed 05/20/24 @ 17:55 by Hailey Collier NP) Chronic pain (Chronic) Hypotension (Acute) Hospital acquired PNA (Acute) Chronic hypoxic respiratory failure (Acute) Gastroesophageal reflux disease (Chronic) Anemia (Chronic) Notes 05/27/24 10:49 Nursing Notes by Francesca Garcia [phone] Nursing Note: Initialized on 05/27/24 10:49 - END OF NOTE v v v v v v v v v Sending and/or Receiving Nurses: Please use comment section below to note any information pertinent to the patient hand-off not included above. Information / Comments: Report received from: Daylin Leung RN 05/27 @ 0697
[2024-05-27 15:34] LABS: BE 2 mmol/L (-2-3); HCO3 28 mmol/L (22-26); pCO2 53 mmHg (35-45); pH 7.33 (7.35-7.45); pO2 42 mmHg (80-105)
[2024-05-27 15:37] LABS: FIO2 21 %; Site Left Radial; sO2 75 % (95-98); tCO2 27 mmol/L (23-27)
[2024-05-27] MEDS: Pregabalin 25 MG CAP 75 MG PO ×2 (15:53→20:03)
[2024-05-27] MEDS: Enoxaparin 40 MG/0.4 ML SYR SC (15:53)
[2024-05-27] MEDS: Acetaminophen 325 MG TAB PO (20:03)
[2024-05-27] MEDS: Midodrine 2.5 MG TAB 5 MG PO (20:03)
[2024-05-27] MEDS: DULoxetine 30 MG CAP 60 MG PO (20:03)
[2024-05-27] MEDS: CEFEPIME 2 GM in Normal Saline 100 ML IVPB (20:04)
[2024-05-27] MEDS: QUEtiapine 50 MG TAB PO (20:04)
[2024-05-27] MEDS: Normal Saline Flush 10 ML SYR IVP (20:04)
[2024-05-27] MEDS: Omeprazole 20 MG CAPCR PO (20:04)
[2024-05-27] MEDS: Benzonatate 100 MG CAP PO (20:04)
[2024-05-27] MEDS: Normal Saline 1,000 ML 100 ML IV (21:14)
[2024-05-28] VITALS (77 sets, daily range): BP systolic 75–101; BP diastolic 42–65; PULSE 65–97; RESP 2–34; TEMP 36.1–37; O2SAT 87–100
[2024-05-28] MEDS: VANCOMYCIN/WATER (PEG) 1 GM/200 ML BAG IVPB ×3 (01:06→23:52)
[2024-05-28 06:07] LABS: HCT 27.8 % (36.0-46.0); HGB 8.5 g/dL (11.2-15.7); MCH 29.3 pg (27.0-33.0); MCHC 30.6 % (32.0-36.0); MCV 96 fL (80-95); Platelet Count 221 10^3/uL (130-400); RDW 14.8 % (11.7-14.6); RDW-SD 51.7 fL; WBC 6.28 10^3/uL (4.4-10.8)
[2024-05-28 06:22] LABS: BUN 9 mg/dL (7-18); CREATININE 0.5 mg/dL (0.55-1.02); Calcium 8.5 mg/dL (8.5-10.1); Chloride 109 mmol/L (98-107); Glucose 92 mg/dL (74-106); Potassium 3.7 mmol/L (3.5-5.1); Sodium 142 mmol/L (136-145)
[2024-05-28 06:35] LABS: Vancomycin, Random 19.6 ug/mL
[2024-05-28] MEDS: Omeprazole 20 MG CAPCR PO ×2 (06:46→20:04)
[2024-05-28] MEDS: CEFEPIME 2 GM in Normal Saline 100 ML IVPB ×3 (06:46→20:00)
[2024-05-28] MEDS: Albuterol/Ipratropium 3 ML UPD VIAL IH ×3 (07:42→20:05)
[2024-05-28] MEDS: Normal Saline Flush 10 ML SYR IVP ×4 (08:20→21:09)
[2024-05-28] MEDS: Pregabalin 25 MG CAP 75 MG PO ×3 (08:21→20:04)
[2024-05-28] MEDS: Ferrous Sulfate 325 MG TAB PO (08:21)
[2024-05-28] MEDS: DULoxetine 30 MG CAP 60 MG PO ×2 (08:21→20:05)
[2024-05-28] MEDS: Midodrine 2.5 MG TAB 5 MG PO ×3 (08:21→20:05)
[2024-05-28] MEDS: Benzonatate 100 MG CAP PO ×2 (08:21→20:04)
--- NOTE | 2024-05-28 08:25 | PGE_ITS ---
Date of Service Date of service: 05/28/24 Time of Service: 08:25 Assessment and Plan Assessment and plan (1) Hospital acquired PNA: Status: Acute Assessment and plan: - Presumed hospital-acquired pneumonia given recent hospitalization for community-acquired pneumonia and completing appropriate course of antibiotics -Not associated with sepsis -Continue vancomycin and cefepime started in the emergency department -Follow-up blood cultures (2) Hypotension: Status: Acute Assessment and plan: - Patient has a history of chronic hypotension and was on midodrine at previous hospitalization -Given question of patient being briefly 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, and rapidly re sponded to 1 L LR, it is also possible that patient may not have been given her home midodrine -Midodrine was held PM 10/7 and BPs decreased overnight for which patient was started on NS 125ml/hr -Will continue home midodrine and monitor blood pressures (3) Chronic hypoxic respiratory failure: Status: Acute Assessment and plan: - Currently on home 2.5 L nasal cannula, continue (4) Anemia: Status: Chronic Assessment and plan: - Continue on iron supplementation Qualifiers: Anemia type: other cause Qualified Code(s): D63.8 - Anemia in other chronic diseases classified elsewhere (5) Gastroesophageal reflux disease: Status: Chronic Assessment and plan: - Continue PPI Qualifiers: Esophagitis presence: esophagitis presence not specified Qualified Code(s): K21.9 - Gastro-esophageal reflux disease without esophagitis (6) Chronic pain: Status: Chronic Assessment and plan: - Continue home opiate regimen Subjective Subjective Interval history since last seen: Patient states that she is tired this morning but is otherwise feeling better. She has no complaints or concerns at this time. Exam Narrative Exam Narrative: well appearing female sitting up in the bed in no acute distress, 1L NC in place, AOx4, heart RRR, lungs with course breath sounds in RRL, abdomen soft, non-tender, non-distended Objective Last Vital Signs Temp 97.5 F L 05/28/24 03:30 Pulse 85 05/28/24 07:55 Resp 18 05/28/24 07:55 BP 87/51 L 05/28/24 06:34 Pulse Ox 94 05/28/24 08:00 Laboratory Results - last 24 hr 05/27/24 05/27/24 05/27/24 09:35 09:46 09:49 WBC 7.93 RBC 3.16 L Hgb 9.2 L Hct 29.9 L MCV 95 MCH 29.1 MCHC 30.8 L RDW 15.1 H Plt Count 219 MPV 10.9 Immature Gran % 1.0 Neutrophils % 63.2 Lymphocytes % 20.2 Monocytes % 12.1 Eosinophils % 3.4 Basophils % 0.1 Nucleated RBC % 0.0 Absolute Neutrophils 5.01 Absolute Lymphocytes 1.60 Absolute Monocytes 0.96 H Absolute Eosinophils 0.27 Absolute Basophils 0.01 ABG Sample Site ABG pH ABG pCO2 ABG pO2 ABG HCO3 ABG Total CO2 ABG O2 Saturation ABG Base Excess VBG pH Cancelled VBG pCO2 Cancelled VBG pO2 Cancelled VBG HCO3 Cancelled VBG Total CO2 Cancelled VBG O2 Saturation Cancelled VBG Base Excess Cancelled Oxygen Liter Flow FiO2 Sodium 142 Potassium 4.0 Chloride 104 Carbon Dioxide 31.2 Anion Gap 6.8 BUN 10 Creatinine 0.5 L Est GFR (CKD-EPI 2020) 93.00 Glucose 95 Calcium 8.5 Total Bilirubin 0.53 AST 19 ALT 27 Alkaline Phosphatase 100 Troponin I 6 Total Protein 5.6 L Albumin 2.0 L Procalcitonin 0.1 Urine Color Urine Clarity Urine pH Ur Specific [place] Urine Protein Urine Ketones Urine Blood Urine Nitrite Urine Bilirubin Urine Urobilinogen Ur Leukocyte Esterase Urine Glucose Random Vancomycin COVID-19 Source Nasopharynx SARS-CoV-2 (PCR) Negative Influenza Type A (PCR) Negative Influenza Type B (PCR) Negative RSV (PCR) Negative 05/27/24 05/27/24 05/27/24 10:34 10:40 11:40 WBC RBC Hgb Hct MCV MCH MCHC RDW Plt Count MPV Immature Gran % Neutrophils % Lymphocytes % Monocytes % Eosinophils % Basophils % Nucleated RBC % Absolute Neutrophils Absolute Lymphocytes Absolute Monocytes Absolute Eosinophils Absolute Basophils ABG Sample Site ABG pH ABG pCO2 ABG pO2 ABG HCO3 ABG Total CO2 ABG O2 Saturation ABG Base Excess VBG pH 7.32 VBG pCO2 64 H* VBG pO2 28 VBG HCO3 33 H VBG Total CO2 32 H VBG O2 Saturation 48 VBG Base Excess 7 H Oxygen Liter Flow FiO2 Sodium Potassium Chloride Carbon Dioxide Anion Gap BUN Creatinine Est GFR (CKD-EPI 2020) Glucose Calcium Total Bilirubin AST ALT Alkaline Phosphatase Troponin I 15 Total Protein Albumin Procalcitonin Urine Color Yellow Urine Clarity Clear Urine pH 5.5 Ur Specific [place] >= 1.030 H Urine Protein Negative Urine Ketones Negative Urine Blood Negative Urine Nitrite Negative Urine Bilirubin Negative Urine Urobilinogen 0.2 Ur Leukocyte Esterase Negative Urine Glucose Negative Random Vancomycin COVID-19 Source SARS-CoV-2 (PCR) Influenza Type A (PCR) Influenza Type B (PCR) RSV (PCR) 05/27/24 05/27/24 05/27/24 12:48 13:17 15:10 WBC RBC Hgb Hct MCV MCH MCHC RDW Plt Count MPV Immature Gran % Neutrophils % Lymphocytes % Monocytes % Eosinophils % Basophils % Nucleated RBC % Absolute Neutrophils Absolute Lymphocytes Absolute Monocytes Absolute Eosinophils Absolute Basophils ABG Sample Site Arterial Line ABG pH 7.29 L ABG pCO2 56 H ABG pO2 78 L ABG HCO3 27 H ABG Total CO2 26 ABG O2 Saturation 93 L ABG Base Excess 0 VBG pH Cancelled VBG pCO2 Cancelled VBG pO2 Cancelled VBG HCO3 Cancelled VBG Total CO2 Cancelled VBG O2 Saturation Cancelled VBG Base Excess Cancelled Oxygen Liter Flow 92 FiO2 21 Sodium Potassium Chloride Carbon Dioxide Anion Gap BUN Creatinine Est GFR (CKD-EPI 2020) Glucose Calcium Total Bilirubin AST ALT Alkaline Phosphatase Troponin I 41 Total Protein Albumin Procalcitonin Urine Color Urine Clarity Urine pH Ur Specific [place] Urine Protein Urine Ketones Urine Blood Urine Nitrite Urine Bilirubin Urine Urobilinogen Ur Leukocyte Esterase Urine Glucose Random Vancomycin COVID-19 Source SARS-CoV-2 (PCR) Influenza Type A (PCR) Influenza Type B (PCR) RSV (PCR) 05/27/24 05/27/24 05/28/24 15:12 15:28 05:36 WBC 6.28 RBC 2.90 L Hgb 8.5 L Hct 27.8 L MCV 96 H MCH 29.3 MCHC 30.6 L RDW 14.8 H Plt Count 221 MPV 11.0 Immature Gran % Neutrophils % Lymphocytes % Monocytes % Eosinophils % Basophils % Nucleated RBC % Absolute Neutrophils Absolute Lymphocytes Absolute Monocytes Absolute Eosinophils Absolute Basophils ABG Sample Site Cancelled Left Radial ABG pH Cancelled 7.33 L ABG pCO2 Cancelled 53 H ABG pO2 Cancelled 42 L ABG HCO3 Cancelled 28 H ABG Total CO2 Cancelled 27 ABG O2 Saturation Cancelled 75 L ABG Base Excess Cancelled 2 VBG pH VBG pCO2 VBG pO2 VBG HCO3 VBG Total CO2 VBG O2 Saturation VBG Base Excess Oxygen Liter Flow Cancelled FiO2 Cancelled 21 Sodium 142 Potassium 3.7 Chloride 109 H Carbon Dioxide 29.0 Anion Gap 4.0 BUN 9 Creatinine 0.5 L Est GFR (CKD-EPI 2020) 93.00 Glucose 92 Calcium 8.5 Total Bilirubin AST ALT Alkaline Phosphatase Troponin I Total Protein Albumin Procalcitonin Urine Color Urine Clarity Urine pH Ur Specific [place] Urine Protein Urine Ketones Urine Blood Urine Nitrite Urine Bilirubin Urine Urobilinogen Ur Leukocyte Esterase Urine Glucose Random Vancomycin 19.6 COVID-19 Source SARS-CoV-2 (PCR) Influenza Type A (PCR) Influenza Type B (PCR) RSV (PCR) Time Spent with Patient Time Spent with Patient: >50 minutes Time was spent: preparing to see the patient(eg.review tests), obtaining and/or reviewing separately otained hiistory, ordering medications,tests, procedures, referring, communicating with other health personal care aide, indepentently interpreting results, counseling the patient and care coordination
--- NOTE | 2024-05-28 08:47 | PDOC.CMIN ---
Date of service: 05/28/24 Time of Service: 08:47 Care Management Initial Assmt Initial Assessment Reason for Hospitalization: Community Acquired Pneumonia Functional Status/Living Situation Patient Presentation: Elvi was awake and lying in bed when CM met with her. She is pleasant and engages in conversation. BP is being closely monitored. She is planning on discharging back to the [facility] when medically ready. CM provided the SNF with an update. Town of Residence: [facility] in [place], Has a house in [facility] that she was previously living alone in. Resides with: Other (Reside at the [facility]. Was living alone prior to her hip fracture in 01/11) Significant Other/Family: Out of area (Sister, Marzena is her HCA. 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 She likes to talk on the phone with her friend and sister. Medications Medication Management: No Issues/Barriers identified Physical Functioning/Mobility Assistive Device: Wheel Chair, SNF Advance Directives Advance Directives: Do you have an Advance Directive: Y 04/11/16 11:[address] [facility]: Y 11/12/12 15:45 Date Asked 08/03/23 02/15/24 11:50 AD Date Reviewed 05/27/24 05/27/24 09:[address] [facility] Yes 02/15/24 11:50 COLST Date Scanned 08/03/23 02/15/24 11:50 Code Status Resuscitation Status DNI Portal Pt does not currently have a portal and education provided: Yes Insurance Coverage/Financial Issues Insurance: Medicaid, Medicare Care Team Visit Care Team Role Provider Type Iesha Leary Primary Care Provider NON-[facility] STAFF PHYSICIAN Yoselin George MD Emergency Provider [facility] STAFF PHYSICIAN Stefan Montilla MD Admit Provider [facility] STAFF PHYSICIAN Attending Provider Discharge Potential Discharge Needs: PCP F/U Appt Anticipated Barriers to Discharge: Medical Status Patient/Family Education Needs: Review discharge instructions, discuss Ask Me Three Transportation: EMS Plan: Requires IV ABX, blood cultures are pending, BP is being closely monitored. Anticipate, Elvi will return to the [facility] once she is medically stable. She will f/u with her PCP and her discharge plan of care. Will transport via EMS (bed bound). CM will continue to follow. [facility] All Active Problems (Updated 05/27/24 @ 13:45 by CASSIE NEGRON) Chronic pain (Chronic) Hypotension (Acute) Hospital acquired PNA (Acute) Pneumonia (Acute) Sepsis associated hypotension (Acute) Nail dystrophy (Acute) Hypokalemia (Acute) Acute on chronic respiratory failure with hypoxia and hypercapnia (Acute) Respiratory failure (Acute) Pneumonia (Acute) Chronic hypoxic respiratory failure (Acute) Displaced intertrochanteric fracture of left femur, subsequent encounter for closed fracture with malunion (Acute) Pain due to internal orthopedic prosthetic device (Acute) Lung disease (Acute) Left hip pain (Acute) Interstitial lung disease (Acute) secondary to chronic aspiration Seasonal allergies (Acute) Skin ulcer (Acute) Community acquired pneumonia (Acute) DNR (do not resuscitate) (Acute) E. 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 fell down and could not get up Morbid obesity (Chronic) Allergic rhinitis (Chronic) Hyperlipidemia (Chronic) Fibromyalgia (Chronic) DJD (degenerative joint disease) (Chronic) Gastroesophageal reflux disease (Chronic) Hiatal hernia (Chronic) Irritable bowel syndrome (Chronic) History of surgery (Chronic) a. S/P open right ankle fracture/dislocation. b. Left knee arthroscopy. c. Right wrist fracture repair. d. T/A as a child. Dehydration, mild (Acute 09/22/14) Housing or economic circumstance (Chronic 09/22/14) a. No heat for 1-1/2 days H/O fall (Chronic) Anemia (Chronic) Alcohol withdrawal delirium (Acute 09/22/14) Rhabdomyolysis (Acute 09/22/14) Ataxia (Chronic) Onychomycosis (Chronic) Depression (Chronic) Medical History Frequent falls Alcohol withdrawal NSIP (nonspecific interstitial pneumonia) Fracture of right inferior pubic ramus Fracture of right superior pubic ramus ACP (advance care planning) Laceration of skin of right forearm Skin ulcer of lower leg Laceration of arm, right, complicated Fractured pelvis T12 compression fracture Acute exacerbation of chronic low back pain Fall Person living alone (09/22/14) Hiatal hernia IBS (irritable bowel syndrome) Hypertension Allergic rhinitis GERD (gastroesophageal reflux disease) DJD (degenerative joint disease) Hyperlipidemia Hypercholesterolemia Fibromyalgia Depression Anemia Alcohol abuse Insomnia Surgical History Tonsillectomy and adenoidectomy Repair fracture right wrist ORIF right ankle Colonoscopy - MAC (11/18/16) Arthroplasty of knee left Family History Mother Dementia Maternal Aunt Diabetes Social History Smoking/Tobacco Use Status: Former Tobacco Use Smoking risk assessment performed?: Yes Alcohol Intake: current Alcohol Intake frequency: 0-2 drinks per day Alcohol type: wine Counseling given: Yes Details: 1-2 bottle of wine/day Drug use: Daily Substance use type: does not use and marijuana Details: two tokes for sleep Housing: long term Do you feel safe at home: Yes Do you feel safe in your relationship?: Yes Additional Social history: Lives alone in home in [facility], has a cat. States hasn't been out of house for a year. One sister in [place] Readmission Within the Past 30 Days Yes or No: Yes Date of First Admission Date of 1st Admission: 05/17/24 Date of this Admission Date of Admission: 05/27/24 This admission was: Through ED Office Visit Since 1st Admission Have you seen your PCP in the office since discharge?: Yes Date of PCP Appointment: 05/25/2024 Had an appointment Been Scheduled?: Yes SDOH(Care Management) Screening Will the Patient Participate in the Screening?: Yes Do you worry about having a steady place to live?: no Problems where you live: no known problems In the past 12 months, have you had to go without electric, gas, oil or water in your home?: no Have you or anyone in your house had to go without enough food to eat?: no Has lack of transportation kept you from medical appointments or from doing things needed for daily living?: no Has anyone in your support network made you feel unsafe for any reason?: no
[2024-05-28] MEDS: Normal Saline 1,000 ML 100 ML IV ×2 (09:35→19:59)
[2024-05-28] MEDS: Enoxaparin 40 MG/0.4 ML SYR SC (13:41)
--- NOTE | 2024-05-28 16:15 | CHAPLAIN ---
I have a brief visit with Elvi. She was pleasant and not interested in further conversation.
[2024-05-28] MEDS: QUEtiapine 50 MG TAB PO (20:04)
[2024-05-28] MEDS: HYDROmorphone 2 MG TAB PO (20:04)
[2024-05-28] MEDS: traZODone 50 MG TAB 200 MG PO (20:05)
[2024-05-28 20:28] LABS: MRSA PCR Negative (Negative)
[2024-05-29] VITALS (40 sets, daily range): BP systolic 82–131; BP diastolic 40–112; PULSE 71–104; RESP 3–31; TEMP 36.3–37; O2SAT 86–100
[2024-05-29] MEDS: CEFEPIME 2 GM in Normal Saline 100 ML IVPB ×3 (04:00→20:18)
[2024-05-29 05:26] LABS: HCT 26.8 % (36.0-46.0); MCH 29.1 pg (27.0-33.0); MCV 94 fL (80-95); MPV 10.7 fL (8.0-11.0); Platelet Count 228 10^3/uL (130-400); RBC 2.85 10^6/uL (3.93-5.22); RDW 14.8 % (11.7-14.6); RDW-SD 50.7 fL; WBC 6.54 10^3/uL (4.4-10.8)
[2024-05-29 05:41] LABS: Anion Gap 5.6 mmol/L (3-11); BUN 9 mg/dL (7-18); CO2 30.4 mmol/L (21.0-32.0); CREATININE 0.6 mg/dL (0.55-1.02); Calcium 8.2 mg/dL (8.5-10.1); Chloride 111 mmol/L (98-107); Estimated GFR 89.01 (mL/min/1.73m2); Glucose 90 mg/dL (74-106); Potassium 3.4 mmol/L (3.5-5.1); Sodium 147 mmol/L (136-145)
[2024-05-29 05:55] LABS: HGB 8.3 g/dL (11.2-15.7)
[2024-05-29] MEDS: Normal Saline 1,000 ML 100 ML IV ×2 (08:02→18:54)
[2024-05-29] MEDS: Normal Saline Flush 10 ML SYR IVP ×3 (08:30→20:34)
--- NOTE | 2024-05-29 08:40 | CMPROGNOTE_ITS ---
Date of service: 05/29/24 Time of Service: 08:40 Care Management Progress Note Progress Note Text Progress Note Text: Elvi was awake and lying in bed when CM met with her. She is pleasant and engages in conversation. BP is being closely monitored. She is planning on discharging back to the [facility] when medically ready. CM provided the SNF with an update. Discharge Potential Discharge Needs: PT Evaluation Anticipated Barriers to Discharge: Medical Status Patient/Family Education Needs: Review discharge instructions, discuss Ask Me Three Transportation: EMS Plan: Pt is transferring to [facility] status, continues to require IV ABX, BP is being closely monitored. Anticipate, Elvi will return to the [facility] once she is medically stable. She will f/u with her PCP and her discharge plan of care. Will transport via EMS (bed bound). CM will continue to follow. SDOH(Care Management) Screening Will the Patient Participate in the Screening?: Yes Do you worry about having a steady place to live?: no Problems where you live: no known problems In the past 12 months, have you had to go without electric, gas, oil or water in your home?: no Have you or anyone in your house had to go without enough food to eat?: no Has lack of transportation kept you from medical appointments or from doing things needed for daily living?: no Has anyone in your support network made you feel unsafe for any reason?: no
[2024-05-29] MEDS: Albuterol/Ipratropium 3 ML UPD VIAL IH ×3 (08:41→20:14)
[2024-05-29] MEDS: Omeprazole 20 MG CAPCR PO ×2 (09:12→20:33)
[2024-05-29] MEDS: Midodrine 2.5 MG TAB 5 MG PO ×3 (09:13→20:31)
[2024-05-29] MEDS: Pregabalin 25 MG CAP 75 MG PO ×3 (09:13→20:33)
[2024-05-29] MEDS: DULoxetine 30 MG CAP 60 MG PO ×2 (09:14→20:31)
[2024-05-29] MEDS: Benzonatate 100 MG CAP PO ×2 (09:15→20:31)
[2024-05-29] MEDS: Ferrous Sulfate 325 MG TAB PO (09:15)
--- NOTE | 2024-05-29 11:05 | PHA.REVIEW2 ---
Pharmacy Admission Review Admission Clinical Review Admission Pharmacy Review: Hypotension (Acute) Hospital acquired PNA (Acute) Chronic hypoxic respiratory failure (Acute) fentanyl Adverse Reaction (Verified 05/27/24 09:48) Nausea Resuscitation Status DNI Height 5 ft 8 in Weight 95.5 kg Pharmacy Admission Review Renal Dosing Renal Dosing: BUN 9 mg/dL (7-18) 05/29/24 05:03 Creatinine 0.6 mg/dL (0.55-1.02) 05/29/24 05:03 Medications needing adjustments: Reviewed (CrCl ~ 85.8 mL/min - calculated using Global RPh, provider does not want SCr rounded to 1 ([facility] List of meds needing interventions: Current medications are okay Anticoagulation Anticoagulation: Hgb 8.3 g/dL (11.2-15.7) L 05/29/24 05:03 Hct 26.8 % (36.0-46.0) L 05/29/24 05:03 Plt Count 228 10^3/uL (130-400) 05/29/24 05:03 Creatinine 0.6 mg/dL (0.55-1.02) 05/29/24 05:03 DVT Prophylaxis: Reviewed (Hgb decreased from 8.5 and Hct decreased from 27.8) Medications: Enoxaparin (40mg daily) Opiate Usage Evaluate Pain Scale/Pains Meds: Reviewed (Hydromorphone 2mg PO HS and morphine CR 30mg q8h) Scheduled Bowel Reg ordered if on Opiates?: No (PRN docusate and Miralax) Relevant Labs Relevant Labs: Sodium 147 mmol/L (136-145) H 05/29/24 05:03 Potassium 3.4 mmol/L (3.5-5.1) L 05/29/24 05:03 Chloride 111 mmol/L (98-107) H 05/29/24 05:03 Electrolytes, C-Reactive P, ESR: Intervened (Na 147, K 3.4 - mentioned to provider that patient takes potassium supplement at home and waiting to hear back) Cardiac Review Cardiac Review: Troponin I 41 ng/L (<or=51) 05/27/24 13:17 Blood Pressure 131/112 1001 Blood Pressure 130/65 0900 Blood Pressure 100/53 0801 Blood Pressure 97/72 0749 Blood Pressure 94/54 0733 Blood Pressure 82/47 0601 Blood Pressure 86/51 0401 Blood Pressure 84/40 0200 Blood Pressure 83/46 0000 BP, HR, EF%: Reviewed (HR 95 - has been in low 90's since 0841 this AM, RR 25 and Ox 86 on 2L) List meds needing interventions: has order for midodrine 5mg PO TID and for normal saline infusion. Patient received dose of midodrine at 0915 this AM, BP then went up to 131/112 (had been low throughout admission so far). QTc Review QTc: Reviewed (455 from 05/27/24) IV to PO Switch IV Medications: Reviewed (cefepime and vancomycin) Home Meds Home Med List reviewed: Intervened Relevent Home Meds Not ordered & why?: Vitamin C, bisacodyl, calcitonin nasal spray, vitamin D3, Neuvira, cyclosporine, Flonase, loratadine, Magnesium, montelukast, potassium and sucralfate Provider mentioned in morning meeting that patient seemed congested, likely due to allergies. Informed provider of loratadine on home med list, provider said they would be putting in an order Reached out to provider regarding missing home meds - various supplements (vitamin C, vitamin D, magnesium, potassium), cyclosporine eye drops, loratadine (talked about in meeting), montelukast and sucralfate Current Meds Current Medication Order Review: Reviewed Pharmacy Antibiotic Review Relevant Labs: WBC 6.54 10^3/uL (4.4-10.8) 05/29/24 05:03 Procalcitonin 0.1 ng/mL 05/27/24 09:35 Temperature 37.0 C Temperature 36.3 C Temperature 36.1 C Microbiology 05/27/24 10:11 Blood Culture - Preliminary Blood NO GROWTH 24 HOURS 05/27/24 09:35 Blood Culture - Preliminary Blood NO GROWTH 24 HOURS Pharmacy Antibiotic Activity: C/S review and Reviewed, no change Comments: Patient is on cefepime 2g q8h (day 2 - 6 doses) and vancomycin (4 doses) 1000mg q12h with predicted AUC of 475 and trough of 14.5. Level was ordered for today at 1100, will adjust dose if needed based on level. MRSA swab from yesterday at 1825 was negative, mentioned to provider. Blood cultures are negative, patient is afebrile and WBC WNL.
--- NOTE | 2024-05-29 11:35 | W.PM.PROGNOT ---
Date of Service Date of service: 05/29/24 Time of Service: 11:35 Assessment and Plan Assessment and plan (1) Hospital acquired PNA: Status: Acute Assessment and plan: - Presumed hospital-acquired pneumonia given recent hospitalization for community-acquired pneumonia and completing appropriate course of antibiotics -Not associated with sepsis -Continue vancomycin and cefepime started in the emergency department -MRSA swab negative, vanc discontinued -Follow-up blood cultures (2) Hypotension: Status: Acute Assessment and plan: - Patient has a history of chronic hypotension and was on midodrine at previous hospitalization -Given question of patient being briefly placed on VP [employer]AG[employer] status, and rapidly responded to 1 L LR, it is also possible that patient may not have been given her home midodrine -Midodrine was held PM 10/7 and BPs decreased overnight for which patient was started on NS 125ml/hr -Will continue home midodrine and monitor blood pressures with goal MAP >60 (3) Chronic hypoxic respiratory failure: Status: Acute Assessment and plan: - Currently on home 2.5 L nasal cannula, continue (4) Anemia: Status: Chronic Assessment and plan: - Continue on iron supplementation Qualifiers: Anemia type: other cause Qualified Code(s): D63.8 - Anemia in other chronic diseases classified elsewhere (5) Gastroesophageal reflux disease: Status: Chronic Assessment and plan: - Continue PPI Qualifiers: Esophagitis presence: esophagitis presence not specified Qualified Code(s): K21.9 - Gastro-esophageal reflux disease without esophagitis (6) Chronic pain: Status: Chronic Assessment and plan: - Continue home opiate regimen Subjective Subjective Interval history since last seen: Patient states that she is a little congested today due to allergies, but that her breathing overall feels better. She has no complaints or concerns at this time. Exam Narrative Exam Narrative: well appearing female sitting up in the bed in no acute distress, 1L NC in place, AOx4, heart RRR, lungs with course breath sounds in RRL, abdomen soft, non-tender, non-distended Objective Last Vital Signs Temp 98.6 F 05/29/24 09:50 Pulse 95 H 05/29/24 10:01 Resp 25 H 05/29/24 10:01 BP 131/112 H 05/29/24 10:01 Pulse Ox 86 L 05/29/24 10:01 Laboratory Results - last 24 hr 05/28/24 05/29/24 18:25 05:03 WBC 6.54 RBC 2.85 L Hgb 8.3 L Hct 26.8 L MCV 94 MCH 29.1 MCHC 31.0 L RDW 14.8 H Plt Count 228 MPV 10.7 Sodium 147 H Potassium 3.4 L Chloride 111 H Carbon Dioxide 30.4 Anion Gap 5.6 BUN 9 Creatinine 0.6 Est GFR (CKD-EPI 2020) 89.01 Glucose 90 Calcium 8.2 L MRSA (TEM-PCR) Negative Time Spent with Patient Time Spent with Patient: >50 minutes Time was spent: preparing to see the patient(eg.review tests), obtaining and/or reviewing separately otained hiistory, ordering medications,tests, procedures, referring, communicating with other health assurance services manager health care, indepentently interpreting results, counseling the patient and care coordination
[2024-05-29 11:53] LABS: Vancomycin, Trough 19.7 ug/mL (10.0-20.0)
--- NOTE | 2024-05-29 14:02 | RESPIRATORY ---
[facility]
[2024-05-29] MEDS: Enoxaparin 40 MG/0.4 ML SYR SC (14:10)
[2024-05-29] MEDS: traZODone 50 MG TAB 200 MG PO (20:30)
[2024-05-29] MEDS: HYDROmorphone 2 MG TAB PO (20:32)
[2024-05-29] MEDS: QUEtiapine 50 MG TAB PO (20:33)
[2024-05-29] MEDS: Fluticasone NASAL SPRAY 16 GM BTL NS (20:35)
[2024-05-30] VITALS (29 sets, daily range): BP systolic 91–121; BP diastolic 53–92; PULSE 69–95; RESP 6–27; TEMP 36.3–36.7; O2SAT 88–100
[2024-05-30] MEDS: CEFEPIME 2 GM in Normal Saline 100 ML IVPB (03:30)
[2024-05-30] MEDS: Normal Saline 1,000 ML 100 ML IV (04:32)
[2024-05-30] MEDS: Omeprazole 20 MG CAPCR PO (07:05)
[2024-05-30] MEDS: Albuterol/Ipratropium 3 ML UPD VIAL IH (07:55)
[2024-05-30] MEDS: Loratidine 10 MG TAB PO (09:08)
[2024-05-30] MEDS: Benzonatate 100 MG CAP PO (09:08)
[2024-05-30] MEDS: Pregabalin 25 MG CAP 75 MG PO (09:08)
[2024-05-30] MEDS: Ferrous Sulfate 325 MG TAB PO (09:08)
[2024-05-30] MEDS: Montelukast 10 MG TAB PO (09:08)
[2024-05-30] MEDS: DULoxetine 30 MG CAP 60 MG PO (09:08)
[2024-05-30] MEDS: Midodrine 2.5 MG TAB 5 MG PO (09:08)
[2024-05-30] MEDS: Normal Saline Flush 10 ML SYR IVP (09:10)
[2024-05-30 09:11] LABS: HCT 26.7 % (36.0-46.0); HGB 8.4 g/dL (11.2-15.7); MCH 29.2 pg (27.0-33.0); MCHC 31.5 % (32.0-36.0); MCV 93 fL (80-95); MPV 11.6 fL (8.0-11.0); Platelet Count 201 10^3/uL (130-400); RBC 2.88 10^6/uL (3.93-5.22); RDW 14.9 % (11.7-14.6); RDW-SD 50.2 fL; WBC 5.86 10^3/uL (4.4-10.8)
[2024-05-30] MEDS: Fluticasone NASAL SPRAY 16 GM BTL NS (09:11)
--- NOTE | 2024-05-30 10:16 | W.PM.DS.N ---
Date of service: 05/30/24 Time of Service: 10:42 DS: Diagnosis Discharge Diagnosis (1) Hospital acquired PNA: Status: Acute Asessment and Plan: - Presumed hospital-acquired pneumonia given recent hospitalization for community-acquired pneumonia and completing appropriate course of antibiotics -Not associated with sepsis -Continue vancomycin and cefepime started in the emergency department -MRSA swab negative, vanc discontinued -Bcx negative to date -being discharged with (2) Hypotension: Status: Acute Asessment and Plan: - Patient has a history of chronic hypotension and was on midodrine at previous hospitalization -Given question of patient being briefly placed on POLICY SPECIALIST status, and rapidly responded to 1 L LR, it is also possible that patient may not have been given her home midodrine -Midodrine was held PM 10/7 and BPs decreased overnight for which patient was started on NS 125ml/hr -Blood pressure and mean arterial pressure improved with midodrine and discontinuation of IV fluids -Recommend continuing scheduled midodrine (3) Chronic hypoxic respiratory failure: Status: Acute (4) Anemia: Status: Chronic (5) Gastroesophageal reflux disease: Status: Chronic (6) Chronic pain: Status: Chronic Discharge Plan Disposition Patient Disposition: Alf Facility(SNF) Condition: Good Discharge Details Reason For Visit: community acquired pneumonia Admit Date/Time: 05/27/24 12:55 Admit Provider: Stefan Montilla Attending Provider: Stefan Montilla Primary Care Provider: Iesha Leary Hospital Course Hospital Course: Patient was initially admitted with signs and symptoms consistent with a hospital-acquired pneumonia given recent hospitalization and completed course of appropriate p.o. antibiotic therapy as outpatient. She did not meet sepsis criteria but did have hypotension that may have been secondary to poor p.o. intake or door combination of not being appropriately administered her home midodrine. Patient did receive IV fluids and her midodrine and did have improvement of her blood pressures without requiring norepinephrine. She was treated with vancomycin and cefepime and continued to have significant improvement and vancomycin was discontinued once MRSA swab was negative. Additionally, patient did not have any change in her chronic oxygen requirement of 2.5 L, if anything she was able to be weaned down to around 1 L sometimes room air while at rest. Given that the patient had significant proven of her symptoms it was determined that she was stable for discharge and will continue antibiotic therapy with p.o. Levaquin. Home Meds and New Rx's Prescriptions: New levofloxacin 750 mg tablet 750 mg PO DAILY Qty: 10 0RF Continued Balanced B-100 Complex 100 mg tablet extended release 1 tab PO DAILY vitamin A 2,400 mcg capsule 2,400 mcg PO DAILY PRN ginkgo biloba 40 mg tablet 240 mg PO DAILY PRN Rx Instructions: give with meal/snack magnesium 250 mg tablet 500 mg PO BID zinc acetate 25 mg (zinc) capsule 100 mg PO BID vitamin E (dl, acetate) 45 mg (100 unit) capsule 180 mg PO DAILY loratadine [Allergy Relief (loratadine)] 10 mg tablet 10 mg PO DAILY polyethylene glycol 3350 17 gram/dose powder 17 g PO DAILY Neuriva Original 100-100 mg capsule 1 cap PO DAILY PRN calcium carbonate [Tums Ultra] 400 mg calcium (1,000 mg) tablet,chewable 2,000 mg PO DAILY PRN Rx Instructions: take 2 tablets (2000mg) by mouth daily *patient will supply sucralfate 1 gram tablet 1 g PO TID omeprazole 20 mg capsule,delayed release(DR/EC) 20 mg PO BID Qty: 60 12RF bisacodyl 10 mg suppository 10 mg LA DAILY PRN multivitamin Tablet 1 tab PO DAILY benzonatate 100 mg capsule 100 mg PO BID montelukast 10 mg tablet 10 mg PO DAILY Qty: 90 4RF ferrous sulfate 325 MG tablet 325 mg PO TID cholecalciferol (vitamin D3) [Vitamin D3] 400 UNIT tablet 50 mcg PO DAILY glucosamine sulfate 2KCl 1,000 MG tablet 500 mg PO BID ascorbic acid (vitamin C) 1,000 mg tablet 1 g PO BID medroxyprogesterone [Provera] 2.5 MG tablet 2.5 mg PO DAILY duloxetine [Cymbalta] 60 mg capsule,delayed release(DR/EC) 60 mg PO BID quetiapine 50 mg tablet 50 mg PO QPM Patient Comments: TAKE ONE TABLET BY MOUTH EVERY EVENING trazodone 100 mg tablet 200 mg PO HS Patient Comments: TAKE 2 TABLETS BY MOUTH EVERY NIGHT cyclosporine 0.05 % Dropperette 8 drp OU BID Qty: 30 0RF morphine concentrate 20 mg/mL syringe 10 mg sublingual ONCE ipratropium-albuterol 0.5 mg-3 mg(2.5 mg base)/3 mL solution for nebulization 3 ml INHALATION TID potassium chloride 20 MEQ tablet,ER particles/crystals 20 meq PO TID Rx Instructions: 20 MG PO TID DIRECTED fluticasone propionate 50 mcg/actuation spray,suspension 1 spray INTRANASAL BID Patient Comments: SPRAY ONE SPRAY IN EACH NOSTRIL TWICE A DAY Rx Instructions: ONE SPRAY EACH NOSTRIL BID morphine 30 mg tablet extended release 30 mg PO Q8H MDD 45 calcitonin (salmon) 200 unit/actuation [place],Non-Aerosol 1 spray NS DAILY Rx Instructions: 1 spray in left nostril daily- alternate nostrils every other day albuterol sulfate [Ventolin HFA] 90 mcg/actuation Hfa Aerosol Inhaler 2 puff inhalation TID midodrine 5 mg tablet 5 mg PO TID pregabalin 75 mg capsule 75 mg PO TID hydromorphone 2 mg tablet 2 mg PO HS MDD 1 Rx Instructions: Hold if patient refuses or staff feels she is somulent Discontinued doxycycline hyclate 100 mg Capsule 100 mg PO Q12H Qty: 8 0RF sulfamethoxazole-trimethoprim [Bactrim] 400-80 mg tablet 1 tab PO TID Qty: 12 0RF Discharge Instructions Activity:: Activity as Tolerated Equipment/Supplies:: No Equipment Needed Diet:: As Tolerated Discharge Orders Discharge Orders: Discharge Order (Routine); Ordered 05/30/24 Ordered By: Stefan Montilla DS: Summary Time Spent with Patient providing and/or coordinating discharge services: Greater than 30 minutes Status at Discharge Functional status at discharge: independent ambulation Overall status at discharge: patient is back to baseline Mental Status: mental status grossly normal Speech and Movement: speech and movement normal Mood: congruent mood Affect: normal affect Quality:SDOH Health Related Social Needs: No Data to Display Exam Narrative Exam Narrative: well appearing female sitting up in the bed in no acute distress, 1L NC in place, AOx4, heart RRR, lungs with course breath sounds in RRL, abdomen soft, non-tender, non-distended Psych Mental Status: mental status grossly normal Speech and Movement: speech and movement normal Mood: congruent mood Affect: normal affect DS: Data Vitals/I&O Vitals and I&O: Vital Signs Temperature 97.3 F L 05/30/24 04:43 Temperature Source Temporal Artery Scan 05/30/24 04:43 Pulse 79 05/30/24 07:55 Pulse 73 05/30/24 03:45 Respiratory Rate 21 05/30/24 07:55 Respiratory Effort Incrsd Work of Breathing 05/27/24 13:50 Respiratory Depth Shallow 05/27/24 09:45 Respiratory Pattern Tachypnea 05/27/24 13:50 Blood Pressure 91/53 L 05/30/24 03:45 Blood Pressure Mean 65 05/30/24 03:45 Blood Pressure Position Sitting 05/27/24 13:50 Pulse Oximetry 94 05/30/24 07:55 Oxygen Delivery Method Nasal Cannula 05/30/24 07:55 Oxygen Flow Rate 1 05/30/24 07:55 Fraction of Inspired Oxygen (FIO2) 25 05/29/24 08:40 Pain Level 2 05/29/24 20:32 Comment on 2L via NC 05/30/24 03:45 Arterial Systolic 109 05/28/24 18:14 Arterial Diastolic 47 05/28/24 18:14 Arterial Mean 64 05/28/24 18:14 Intake & Output 05/29/24 05/30/24 05/30/24 17:59 05:59 17:59 Intake Total 370 / 370 2383.333 / 2753.333 Output Total 2049 / 4025 450 / 450 Balance -1680 / -1680 408.333 / -1271.667 -450 / -450 Weight 206 lb 5.643 oz Intake: IV 120 / 120 2263.333 / 2383.333 Oral 250 / 250 120 / 370 Output: Urine 2049 / 4025 450 / 450 Other: Urine Color Yellow Pale Yellow Yellow Urine Appearance Clear Clear Clear Stool Size Copious Stool Characteristics Soft Brown Data Completed and Pending Labs on day of discharge: Labs from last 24 hours 05/30/24 05/29/24 05:35 11:20 WBC Pending RBC Pending Hgb Pending Hct Pending MCV Pending MCH Pending MCHC Pending RDW Pending Plt Count Pending MPV Pending Sodium Pending Potassium Pending Chloride Pending Carbon Dioxide Pending Anion Gap Pending BUN Pending Creatinine Pending Est GFR (CKD-EPI 2020) Pending Glucose Pending Calcium Pending Vancomycin Trough 19.7 Preliminary micro results at discharge 05/27/24 10:11 Blood Culture - Preliminary Blood NO GROWTH 48 HOURS 05/27/24 09:35 Blood Culture - Preliminary Blood NO GROWTH 48 HOURS PFSH All Active Problems (Updated 05/27/24 @ 13:45 by CASSIE NEGRON) Chronic pain (Chronic) Hypotension (Acute) Hospital acquired PNA (Acute) Pneumonia (Acute) Sepsis associated hypotension (Acute) Nail dystrophy (Acute) Hypokalemia (Acute) Acute on chronic respiratory failure with hypoxia and hypercapnia (Acute) Respiratory failure (Acute) Pneumonia (Acute) Chronic hypoxic respiratory failure (Acute) Displaced intertrochanteric fracture of left femur, subsequent encounter for closed fracture with malunion (Acute) Pain due to internal orthopedic prosthetic device (Acute) Lung disease (Acute) Left hip pain (Acute) Interstitial lung disease (Acute) secondary to chronic aspiration Seasonal allergies (Acute) Skin ulcer (Acute) Community acquired pneumonia (Acute) DNR (do not resuscitate) (Acute) E. 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 fell down and could not get up Morbid obesity (Chronic) Allergic rhinitis (Chronic) Hyperlipidemia (Chronic) Fibromyalgia (Chronic) DJD (degenerative joint disease) (Chronic) Gastroesophageal reflux disease (Chronic) Hiatal hernia (Chronic) Irritable bowel syndrome (Chronic) History of surgery (Chronic) a. S/P open right ankle fracture/dislocation. b. Left knee arthroscopy. c. Right wrist fracture repair. d. T/A as a child. Dehydration, mild (Acute 09/22/14) Housing or economic circumstance (Chronic 09/22/14) a. No heat for 1-1/2 days H/O fall (Chronic) Anemia (Chronic) Alcohol withdrawal delirium (Acute 09/22/14) Rhabdomyolysis (Acute 09/22/14) Ataxia (Chronic) Onychomycosis (Chronic) Depression (Chronic) Medical History Frequent falls Alcohol withdrawal NSIP (nonspecific interstitial pneumonia) Fracture of right inferior pubic ramus Fracture of right superior pubic ramus ACP (advance care planning) Laceration of skin of right forearm Skin ulcer of lower leg Laceration of arm, right, complicated Fractured pelvis T12 compression fracture Acute exacerbation of chronic low back pain Fall Person living alone (09/22/14) Hiatal hernia IBS (irritable bowel syndrome) Hypertension Allergic rhinitis GERD (gastroesophageal reflux disease) DJD (degenerative joint disease) Hyperlipidemia Hypercholesterolemia Fibromyalgia Depression Anemia Alcohol abuse Insomnia Surgical History Tonsillectomy and adenoidectomy Repair fracture right wrist ORIF right ankle Colonoscopy - MAC (11/18/16) Arthroplasty of knee left Family History Mother Dementia Maternal Aunt Diabetes Social History Smoking/Tobacco Use Status: Former Tobacco Use Smoking risk assessment performed?: Yes Alcohol Intake: current Alcohol Intake frequency: 0-2 drinks per day Alcohol type: wine Counseling given: Yes Details: 1-2 bottle of wine/day Drug use: Daily Substance use type: does not use and marijuana Details: two tokes for sleep Housing: [facility] Do you feel safe at home: Yes Do you feel safe in your relationship?: Yes Additional Social history: Lives alone in home in [facility], has a cat. States hasn't been out of house for a year. One sister in [place] Time Spent with Patient Time Spent with Patient: <45 minutes Time was spent: preparing to see the patient(eg.review tests), obtaining and/or reviewing separately otained hiistory, ordering medications,tests, procedures, referring, communicating with other health progressive care unit registered nurse, indepentently interpreting results, counseling the patient and care coordination
--- NOTE | 2024-05-30 10:58 | PDOC.CMDIS ---
Date of service: 05/30/24 Time of Service: 10:58 LACE Index Scoring Tool Questions: Length of Stay (in days): 3 Was the patient admitted via the E.D.?: Yes Comorbidities: Chronic Pulmonary Disease E.D. Visits: 3 Answers: Total Score: 11 Risk of Readmission: High Risk Care Management Discharge Plan Reason for Hospitalization: Pneumonia Discharge Plan: Patient is discharged back to the [facility] for resumption of alf services. Transportation is provided by EMS. Follow up with community/facility providers and discharge plan of care as instructed. Appointment for a hip x-ray Patient/Family Education Needs: Review discharge instructions, limitations, medications and plan to follow up with community providers. Discuss ask me three. Services Needed at Discharge: Fdc Facility ([facility]) and Transportation ([facility], coordinated by [facility]) [facility] Health Related Social Needs: No Data to Display
[2024-05-30 11:53] LABS: BUN 6 mg/dL (7-18); CREATININE 0.5 mg/dL (0.55-1.02); Calcium 8.6 mg/dL (8.5-10.1); Chloride 113 mmol/L (98-107); Glucose 89 mg/dL (74-106); Sodium 148 mmol/L (136-145)
== END 2024-05-30 12:45 | disposition skilled nursing facility (03) | DRG 194 ==
LOC: ER 12:46 → ICU 05-28 10:52
PROVIDERS: Admitting Provider Family Medicine; Emergency Provider Emergency Medicine; PCP Family Medicine; Visit Provider Family Medicine
DX: J18.9 Pneumonia, unspecified organism (principal); J96.11 Chronic respiratory failure with hypoxia; Y95 Nosocomial condition; I95.9 Hypotension, unspecified; K21.9 Gastro-esophageal reflux disease without esophagitis; D63.8 Anemia in other chronic diseases classified elsewhere; Z79.891 Long term (current) use of opiate analgesic; J84.89 Other specified interstitial pulmonary diseases; Z99.81 Dependence on supplemental oxygen; E87.6 Hypokalemia; Z66 Do not resuscitate; K52.831 Collagenous colitis; E66.01 Morbid (severe) obesity due to excess calories; M79.7 Fibromyalgia; F32.A Depression, unspecified; B35.1 Tinea unguium; R27.0 Ataxia, unspecified; K44.9 Diaphragmatic hernia without obstruction or gangrene; E78.5 Hyperlipidemia, unspecified; R29.6 Repeated falls; I10 Essential (primary) hypertension; G47.00 Insomnia, unspecified; J30.9 Allergic rhinitis, unspecified; Z96.652 Presence of left artificial knee joint; F12.90 Cannabis use, unspecified, uncomplicated
CPT/HCPCS: 00123; 36415; 36556; 36592; 51702; 71045; 80048; 80053; 82805; 84145; 85027; 87040; 87637; 87641; 93005; 96365; 96366; 96368; 99291; J1650; 80202; 81003; 84484; 85025; 93010; 94640; 94660; 94667; 94760; 99223; 99233; 99239; J0692; J3372; J7620

== ENCOUNTER 2024-05-30 13:00 | Outpatient (CLI) | payer MEDICARE, MEDICAID, SELFPAY ==
--- NOTE | 2024-05-30 13:14 | DI.RAD_ITS ---
Exam(s) XR HIP LT COMPLETE AP PELVIS EXAM: XR HIP LT COMPLETE AP PELVIS INDICATION: LEFT HIP PAIN, CLOSED INTERTROCHANTERIC FRACTURE LT FEMUR NONUNION, S72.142. COMPARISON: CR XR PELVIS AP from 07/25/2023 CR,XR XR HIP LT COMPLETE AP PELVIS from 12/31/2023 XA XR HIP LT IN OR from 01/01/2024 CR XR FEMUR LT from 01/03/2024 CR XR HIP LT AP LAT ONLY from 02/05/[address] LOWER EXTREMITY LT WO from 02/19/2024 CR XR FEMUR LT from 03/29/2024 TECHNIQUE: 2D digital imaging was performed. Three views. FINDINGS: The intramedullary christen and nail in the proximal femur appears unchanged from the most recent exam. T he tip of the nail is again noted to project beyond the cortex of the femoral head, into the hip join t by few millimeters. There is no gross change in fracture alignment given differences in projection . The lateral view is limited by under penetration. There is some increased impaction at the intert rochanteric fracture compared with older images. Old right pubic ramus fractures are noted. There i s mild bilateral hip joint space narrowing. IMPRESSION: Stable fracture and hardware alignment from the most recent exam. Compared to older exams, there has been increased impaction at the fracture site and the tip of the nail projects through the cortex of the femoral head. DATA REPOSITORY: RADIATION DOSE DELIVERED:
== END 2024-05-30 13:20 ==
PROVIDERS: PCP Family Medicine; Visit Provider Orthopaedic Surgery Adult Reconstructive Orthopaedic Surgery
DX: S72.142D Displaced intertrochanteric fracture of left femur, subsequent encounter for closed fracture with routine healing (principal); X58.XXXD Exposure to other specified factors, subsequent encounter
CPT/HCPCS: 73502

== ENCOUNTER 2024-06-03 18:36 | Outpatient (REF) | payer MEDICARE, MEDICAID, SELFPAY ==
[2024-06-03 19:52] LABS: Abs Immature Grans 0.04 10^3/uL (0.0-0.06); Absolute Basophil Count 0.02 10^3/uL (0.0-0.2); Absolute Lymphocyte Count 0.86 10^3/uL (1.2-3.4); Absolute Monocyte Count 0.54 10^3/uL (0.1-0.8); Absolute Neutrophil Count 3.94 10^3/uL (1.2-6.7); Basophils % 0.4 %; Eosinophils % 3.6 %; HCT 29.8 % (36.0-46.0); HGB 9.2 g/dL (11.2-15.7); Immature Grans % 0.7 %; Lymphocytes % 15.4 %; MCHC 30.9 % (32.0-36.0); MCV 94 fL (80-95); MPV 11.4 fL (8.0-11.0); Monocytes % 9.6 %; Neutrophils % 70.3 %; Platelet Count 293 10^3/uL (130-400); RBC 3.17 10^6/uL (3.93-5.22); RDW 15.1 % (11.7-14.6); RDW-SD 52.5 fL
[2024-06-03 20:09] LABS: ALT 29 U/L (14-59); AST 24 U/L (15-37); Albumin 2.2 g/dL (3.4-5.0); Alkaline Phosphatase 115 U/L (46-116); Anion Gap 4.3 mmol/L (3-11); BUN 8 mg/dL (7-18); Bilirubin, Total 0.27 mg/dL (0.2-1.0); CO2 36.7 mmol/L (21.0-32.0); CREATININE 0.5 mg/dL (0.55-1.02); Calcium 8.5 mg/dL (8.5-10.1); Chloride 104 mmol/L (98-107); Glucose 102 mg/dL (74-106); NT-proBNP 645 pg/mL (<300); Potassium 4.2 mmol/L (3.5-5.1); Sodium 145 mmol/L (136-145); Total Protein 5.6 g/dL (6.4-8.2)
== END 2024-06-03 18:37 | disposition home or self-care (01) ==
LOC: LBN 18:36
PROVIDERS: PCP Family Medicine; Visit Provider Nurse Practitioner Gerontology
DX: G89.4 Chronic pain syndrome (principal); J96.21 Acute and chronic respiratory failure with hypoxia
CPT/HCPCS: 80053; 83880; 85025

== ENCOUNTER 2024-06-06 13:11 | Emergency (ER) | payer MEDICARE, MEDICAID, SELFPAY ==
[2024-06-06] VITALS (67 sets, daily range): BP systolic 69–178; BP diastolic 20–147; PULSE 78–121; RESP 14–39; TEMP 37.1–38.6; O2SAT 85–100
--- NOTE | 2024-06-06 13:00 | RT.EKG_ITS ---
APPROVED REPORT Exam: Resting ECG Reason for Exam: shortness of breath Patient Location: E HR:98 bpm ECG Measurements Heart Rate 98 AXIS IL 135 P 9 QRSd 89 QRS -4 QT 352 T 29 QTc 450 Conclusion Sinus rhythm...normal P axis, V-rate 60- 99 Low voltage, precordial leads...precordial leads <1.0mV Narrow complex normal sinus rhythm at a rate of 98. Intervals within normal limits. Left axis devia tion. No signs of LVH. Low voltage. Compared to prior dated earlier this month no acute injury danny tejada
--- NOTE | 2024-06-06 13:30 | DI.CT_ITS ---
Exam(s) CT CHEST/ABD/PEL W EXAM: CT CHEST/ABD/PEL W CLINICAL HISTORY: persisten fever, sob, abd pain. TECHNIQUE: Imaging Protocol: Axial computed tomography images with coronal and sagittal reformatted images were created and reviewed CONTRAST MATERIAL: Intravenous: Omnipaque 350 Contrast volume:100 ml Oral: None COMPARISON: CT CT CHEST/ABD/PEL WO from 07/25/[address] CHEST HIGH RESOLUTION from 04/16/[address] CHEST PE CTA from 05/17/2024 CR XR PORTABLE CHEST AP POST LINE from 05/27/2024 FINDINGS: CHEST: LUNGS: The amount of infiltrate in the right upper lobe has increased from the prior CT scans listed above and there is also now a nodule in the right upper lobe anterior segment which measures 1.5 x 1. 0 cm, not previously present. There is also some further increase in infiltrate in the right middle lobe. Also slight further increased infiltrate in the right lower lobe including basal and superior segments. There is also now a small non loculated appearing right pleural effusion and a tiny left p leural effusion, not previously present. In the opposite-left lung there is some infiltrate now evident in the left upper lobe which was not p reviously present both adjacent to the distal aortic arch as well as in the apical posterior segment of the left upper lobe. There is also a small nodular infiltrate in the left upper lobe not previous ly present, this measuring 10 x 8 mm. Also more confluent infiltrate in the left upper lobe adjacent to the major fissure, this measuring 2.2 x 1.7 cm, not previously present. There is some increasing infiltrate in the left lung base posterior basal segment. Tiny left pleural effusion also noted. MEDIASTINUM: Mildly enlarged lymph nodes are noted in the right hilum. There is also some adenopathy in the subcarinal region. No obvious adenopathy in the left hilum. No adenopathy in the anterior m ediastinal fat. Visualized thyroid unremarkable. Some thickening of the esophagus is noted as well as a moderate size hiatal hernia again noted. Requires endoscopy. CARDIAC: Mild cardiomegaly. No pericardial effusion.Caliber of the thoracic aorta is within normal l imits. OSSEOUS: Multilevel vertebral compression fractures are evident. There is a prominent compression fr acture of T12, unchanged. T10 compression fractures unchanged. Compression fractures of T7 and T8 a lso unchanged. Also T6 unchanged. There do not appear to be new compression fractures. There is pa rtial fusion of the L1 and L2 vertebral bodies anteriorly. ABDOMEN: There is no ascites. LIVER: There are no significant focal hepatic lesions. There is mild dilatation of intrahepatic duct s. GALLBLADDER/BILIARY: The gallbladder is distended but does not appear obviously edematous and there i s no pericholecystic fluid. No obvious radiopaque gallstones within the gallbladder lumen. CBD is n ot dilated. PANCREAS: No evidence of pancreatic mass nor dilatation of the pancreatic duct. SPLEEN: Spleen size upper normal. No splenic lesions. Splenic and portal veins are patent. ADRENALS: There are no significant adrenal masses. KIDNEYS: Right kidney unremarkable. There is a benign cyst in the right kidney which measures 2 x 2 cm and does not require further workup.. No solid lesions in the kidneys. No calculi. No hydroneph rosis nor hydroureter. ABDOMINAL AORTA: Abdominal aorta is calcified but not enlarged. Iliac arteries also not enlarged. LYMPH NODES: There is no retroperitoneal nor paraaortic adenopathy. ABDOMINAL WALL: No evidence of significant anterior abdominal wall nor inguinal hernia. GI: There is no evidence of bowel obstruction. PELVIS: LYMPH NODES: There is no intrapelvic nor inguinal adenopathy. GI: No evidence of appendicitis.No evidence of sigmoid diverticulitis. URINARY BLADDER: Some bladder wall thickening but difficult to assess because of beam hardening artif act from hip hardware. This wall thickening in the bladder appears more prominent on the right side. Cannot exclude neoplasm. REPRODUCTIVE: Uterus and adnexal regions appear age-appropriate. There is no free fluid in the pelvi s. OSSEOUS: There is hardware in left hip across prior fracture site. There is a healed fracture of the superior and inferior pubic rami on the opposite-right side. No obvious pelvic sacral insufficiency fracture. No osseous lesions. IMPRESSION: 1. Increased bilateral pulmonary infiltrates as described above. Also small bilateral pleural effusi ons. Hiatal hernia and abnormal thickening of the esophagus noted. Consider the possibility that th e increasing pulmonary infiltrates may be related to esophageal issues. 2. Are enlarged lymph nodes in the subcarinal and right hilar regions. 3. Gallbladder is distended but does not appear edematous. Although there are no radiopaque calculi, consider ultrasound to determine if there are non CT visible gallstones. CBD does not appear dilate d but there is slight prominence of intrahepatic ducts. 4. Asymmetric right-sided bladder wall thickening which is difficult to assess because of beam harden ing artifact from hip hardware. Cannot exclude neoplasm at this level within the urinary bladder. C onsider cystoscopy. 5. Osteoporosis with multiple thoracic vertebral body compression fractures as described above but u nchanged from prior CT scan listed above. There are no new fractures identified. There are also hea led fractures of the pubic rami on the right side which is the side opposite of the hip hardware. Report called by myself to ER provider 06/06/2024 3:35 p.m. RADIATION DOSE DELIVERED: 780.42mGy.cm Total DLP DATA REPOSITORY: All CT scans at this facility are submitted to the National Radiology Data Registry (NRDR) Dose Index Registry (DIR) with the [employer] ([employer]). RADIATION OPTIMIZATION: All CT scans at this facility use at least one of these dose optimization te chniques: automated exposure control; mA and/or kV adjustment per patient size (includes targeted exa ms where dose is matched to clinical indication); or iterative reconstruction.
[2024-06-06 13:53] LABS: Abs Immature Grans 0.06 10^3/uL (0.0-0.06); Absolute Basophil Count 0.04 10^3/uL (0.0-0.2); Absolute Eosinophil Count 0.01 10^3/uL (0.0-0.7); Absolute Monocyte Count 0.89 10^3/uL (0.1-0.8); BE (Venous) 14 mmol/L (-2-3); Basophils % 0.3 %; Eosinophils % 0.1 %; HCO3 (Venous) 39 mmol/L (23-28); Immature Grans % 0.5 %; Lactate 0.9 mmol/L (0.6-1.4); MCH 28.4 pg (27.0-33.0); MCV 95 fL (80-95); MPV 10.3 fL (8.0-11.0); Monocytes % 7.1 %; O2 Sat (Venous) 69 %; Platelet Count 284 10^3/uL (130-400); RBC 3.17 10^6/uL (3.93-5.22); RDW 14.8 % (11.7-14.6); RDW-SD 51.9 fL; TCO2 (Venous) 37 mmol/L (24-29); pH (Venous) 7.36 (7.31-7.41); pO2 (Venous) 38 mmHg
[2024-06-06 13:55] LABS: pCO2 (Venous) 69 mmHg (41-51)
[2024-06-06 14:00] LABS: Absolute Lymphocyte Count 0.76 10^3/uL (1.2-3.4); Absolute Neutrophil Count 10.84 10^3/uL (1.2-6.7)
[2024-06-06 14:12] LABS: ALT 20 U/L (14-59); AST 17 U/L (15-37); Albumin 1.9 g/dL (3.4-5.0); Alkaline Phosphatase 106 U/L (46-116); Anion Gap 1.2 mmol/L (3-11); BUN 8 mg/dL (7-18); Bilirubin, Total 0.33 mg/dL (0.2-1.0); CO2 36.8 mmol/L (21.0-32.0); CREATININE 0.7 mg/dL (0.55-1.02); Calcium 8.6 mg/dL (8.5-10.1); Chloride 105 mmol/L (98-107); Estimated GFR 85.76 (mL/min/1.73m2); Glucose 111 mg/dL (74-106); Potassium 4.9 mmol/L (3.5-5.1); Sodium 143 mmol/L (136-145); Total Protein 5.9 g/dL (6.4-8.2)
[2024-06-06] MEDS: Omnipaque 350 MG/ML 100 ML BTL IJ (14:15)
[2024-06-06 14:16] LABS: Troponin I 53 ng/L (<or=51)
[2024-06-06] MEDS: Normal Saline - Diluent 50 ML VIAL IJ (14:16)
[2024-06-06 14:28] LABS: Procalcitonin 0.6 ng/mL
[2024-06-06 14:43] LABS: COVID-19 PCR Negative (Negative); Influenza A PCR Negative (Negative); Influenza B PCR Negative (Negative); RSV PCR Negative (Negative)
[2024-06-06 14:44] LABS: Source Nasopharynx
[2024-06-06] MEDS: Normal Saline 1,000 ML 1000 ML IV (14:51)
[2024-06-06] MEDS: Dexamethasone 10 MG/ML VIAL IVP (14:51)
[2024-06-06 15:12] LABS: Troponin I 41 ng/L (<or=51)
[2024-06-06] MEDS: CEFEPIME 2 GM in Normal Saline 100 ML IVPB (15:17)
[2024-06-06] MEDS: VANCOMYCIN/WATER (PEG) 2 GM/400 ML BAG IVPB (15:17)
--- NOTE | 2024-06-06 15:47 | ED.GENADUL_ITS ---
Discharge Plan Disposition Patient Disposition: Transfer-Acute Inpatient Care Specific Acute Inpt Facility: [place] Condition: Fair Discharge Details Clinical Impression: Acute on chronic respiratory failure with hypoxia and hypercapnia, Pneumonia, Anemia, Hyperlipidemia, Interstitial lung disease, DNR (do not resuscitate), Sepsis Primary Care Provider: Iesha Leary ED Provider: Yoselin George Home Meds and New Rx's Prescriptions: No Action Balanced B-100 Complex 100 mg tablet extended release 1 tab PO DAILY vitamin A 2,400 mcg capsule 2,400 mcg PO DAILY PRN ginkgo biloba 40 mg tablet 240 mg PO DAILY PRN Rx Instructions: give with meal/snack magnesium 250 mg tablet 500 mg PO BID zinc acetate 25 mg (zinc) capsule 100 mg PO BID vitamin E (dl, acetate) 45 mg (100 unit) capsule 180 mg PO DAILY loratadine [Allergy Relief (loratadine)] 10 mg tablet 10 mg PO DAILY polyethylene glycol 3350 17 gram/dose powder 17 g PO DAILY Neuriva Original 100-100 mg capsule 1 cap PO DAILY PRN calcium carbonate [Tums Ultra] 400 mg calcium (1,000 mg) tablet,chewable 2,000 mg PO DAILY PRN Rx Instructions: take 2 tablets (2000mg) by mouth daily *patient will supply sucralfate 1 gram tablet 1 g PO TID omeprazole 20 mg capsule,delayed release(DR/EC) 20 mg PO BID Qty: 60 12RF bisacodyl 10 mg suppository 10 mg [place] DAILY PRN multivitamin Tablet 1 tab PO DAILY benzonatate 100 mg capsule 100 mg PO BID montelukast 10 mg tablet 10 mg PO DAILY Qty: 90 4RF ferrous sulfate 325 MG tablet 325 mg PO TID cholecalciferol (vitamin D3) [Vitamin D3] 400 UNIT tablet 50 mcg PO DAILY glucosamine sulfate 2KCl 1,000 MG tablet 500 mg PO BID ascorbic acid (vitamin C) 1,000 mg tablet 1 g PO BID medroxyprogesterone [Provera] 2.5 MG tablet 2.5 mg PO DAILY duloxetine [Cymbalta] 60 mg capsule,delayed release(DR/EC) 60 mg PO BID quetiapine 50 mg tablet 50 mg PO QPM Patient Comments: TAKE ONE TABLET BY MOUTH EVERY EVENING trazodone 100 mg tablet 200 mg PO HS Patient Comments: TAKE 2 TABLETS BY MOUTH EVERY NIGHT morphine concentrate 20 mg/mL syringe 10 mg sublingual ONCE ipratropium-albuterol 0.5 mg-3 mg(2.5 mg base)/3 mL solution for nebulization 3 ml INHALATION TID levofloxacin 750 mg tablet 750 mg PO DAILY Qty: 10 0RF potassium chloride 20 MEQ tablet,ER particles/crystals 20 meq PO TID Rx Instructions: 20 MG PO TID DIRECTED fluticasone propionate 50 mcg/actuation spray,suspension 1 spray INTRANASAL BID Patient Comments: SPRAY ONE SPRAY IN EACH NOSTRIL TWICE A DAY Rx Instructions: ONE SPRAY EACH NOSTRIL BID morphine 30 mg tablet extended release 30 mg PO Q8H MDD 45 calcitonin (salmon) 200 unit/actuation [place],Non-Aerosol 1 spray NS DAILY Rx Instructions: 1 spray in left nostril daily- alternate nostrils every other day albuterol sulfate [Ventolin HFA] 90 mcg/actuation Hfa Aerosol Inhaler 2 puff inhalation TID midodrine 5 mg tablet 5 mg PO TID pregabalin 75 mg capsule 75 mg PO TID hydromorphone 2 mg tablet 2 mg PO HS MDD 1 Rx Instructions: Hold if patient refuses or staff feels she is somulent L.acidoph,saliva-B.bif-S.therm [Acidophilus Probiotic Blend] 175 mg capsule 1 cap PO DAILY cyclosporine 0.05 % Dropperette 1 drp OU BID Discharge Data Discharge Date/Time-TO BE ENTERED AT DEPARTURE: 06/06/24 19:54 HPI General Date/Time Provider Initiated Documentation: 06/06/24 13:25 . HPI Narrative: This 83-year-old female presents with past medical history of respiratory failure, pneumonia, recurrent, UTI, chronic left hip fracture with recent multiple admissions to the hospital once for hypotension and once for pneumonia. Was on doxycycline and has most recently been transition to Levaquin at time of discharge on 30 May has been taking Levaquin for the past 6 days. Related Data Home Medications ?Medication ?Instructions ?Recorded ?Confirmed cholecalciferol (vitamin D3) 10 50 mcg PO DAILY 12/06/13 06/06/24 mcg (400 unit) tablet (Vitamin D3) ferrous sulfate 325 mg (65 mg 325 mg PO TID 12/06/13 06/06/24 iron) tablet glucosamine sulfate 2KCl 1,000 mg 500 mg PO BID 12/06/13 06/06/24 tablet medroxyprogesterone 2.5 mg tablet 2.5 mg PO DAILY 11/18/16 06/06/24 (Provera) potassium chloride 20 mEq 20 meq PO TID 11/25/16 06/06/24 tablet,extended release(part/cryst) fluticasone propionate 50 1 spray intranasal BID 09/19/20 06/06/24 mcg/actuation nasal spray,suspension quetiapine 50 mg tablet 50 mg PO QPM 03/19/22 06/06/24 trazodone 100 mg tablet 200 mg PO HS 03/19/22 06/06/24 ginkgo biloba 40 mg tablet 240 mg PO DAILY PRN 10/18/23 06/06/24 magnesium 250 mg tablet 500 mg PO BID 10/18/23 06/06/24 vit B complex 100 combo no.2 100 1 tab PO DAILY 10/18/23 06/06/24 mg tablet,extended release (Balanced B-100 Complex) vitamin A 2,400 mcg capsule 2,400 mcg PO DAILY PRN 10/18/23 06/06/24 vitamin E (dl, acetate) 45 mg (100 180 mg PO DAILY 10/18/23 06/06/24 unit) capsule zinc acetate 25 mg (zinc) capsule 100 mg PO BID 10/18/23 06/06/24 ascorbic acid (vitamin C) 1,000 mg 1 g PO BID 01/23/24 06/06/24 tablet loratadine 10 mg tablet (Allergy 10 mg PO DAILY 01/23/24 06/06/24 Relief (loratadine)) duloxetine 60 mg capsule,delayed 60 mg PO BID 03/20/24 06/06/24 release (Cymbalta) calcium carbonate (Tums Ultra) 2,000 mg PO DAILY PRN 04/09/24 06/06/24 coffee extract 100 mg-phosphatidyl 1 cap PO DAILY PRN 04/09/24 06/06/24 serine 100 mg capsule (Neuriva Original) polyethylene glycol 3350 17 17 g PO DAILY 04/09/24 06/06/24 gram/dose oral powder benzonatate 100 mg capsule 100 mg PO BID 04/29/24 06/06/24 bisacodyl 10 mg rectal suppository 10 mg [place] DAILY PRN 04/29/24 06/06/24 multivitamin 1 tab PO DAILY 04/29/24 06/06/24 montelukast 10 mg tablet 10 mg PO DAILY #90 tabs 05/02/24 06/06/24 omeprazole 20 mg capsule,delayed 20 mg PO BID #60 caps 05/13/24 06/06/24 release sucralfate 1 gram tablet 1 g PO TID 05/13/24 06/06/24 albuterol sulfate 90 mcg/actuation 2 puff inhalation TID 05/17/24 06/06/24 aerosol inhaler (Ventolin HFA) calcitonin (salmon) 200 1 spray NS DAILY 05/17/24 06/06/24 unit/actuation nasal spray midodrine 5 mg tablet 5 mg PO TID 05/17/24 06/06/24 morphine 30 mg tablet,extended 30 mg PO Q8H 05/17/24 06/06/24 release hydromorphone 2 mg tablet 2 mg PO HS pain 05/18/24 06/06/24 pregabalin 75 mg capsule 75 mg PO TID 05/18/24 06/06/24 ipratropium 0.5 mg-albuterol 3 mg 3 ml inhalation TID 05/27/24 06/06/24 (2.5 mg base)/3 mL nebulization soln morphine concentrate 20 mg/mL oral 10 mg sublingual ONCE 05/27/24 06/06/24 syringe (FOR ORAL USE ONLY) levofloxacin 750 mg tablet 750 mg PO DAILY #10 tabs 05/30/24 06/06/24 L.acidophil,salivari-Bifido 1 cap PO DAILY 06/06/24 06/06/24 bifidum-Strep thermoph 175 mg capsule (Acidophilus Probiotic Blend) cyclosporine 0.05 % eye drops in a 1 drp OU BID 06/06/24 06/06/24 dropperette Previous Rx's ?Medication ?Instructions ?Recorded montelukast 10 mg tablet 10 mg PO DAILY #90 tabs 05/02/24 omeprazole 20 mg capsule,delayed 20 mg PO BID #60 caps 05/13/24 release levofloxacin 750 mg tablet 750 mg PO DAILY #10 tabs 05/30/24 Allergies Allergy/AdvReac Type Severity Reaction Status Date / Time fentanyl AdvReac Nausea Verified 06/06/24 14:00 General Stated Complaint: Fever MELISSA: 3 Exam Narrative Exam Narrative: 83-year-old female alert and oriented, chronically ill in appearance, pupils equal round reactive to light and accommodation, no respiratory distress, oxygenating via nasal cannula in place cardiac rate rhythm regular, no abdominal tenderness, alert and oriented x 4, no peripheral edema, no calf swelling or tenderness, no meningismus Course Vital Signs Vital signs: Vital Signs Temperature 38.6 C H 06/06/24 13:12 Pulse 102 H 06/06/24 13:12 Respiratory Rate 20 06/06/24 13:12 Blood Pressure 178/147 H 06/06/24 13:12 Pulse Oximetry 96 06/06/24 13:12 Temperature 38.6 C H 06/06/24 13:29 Temperature Source Oral 06/06/24 13:12 Pulse 96 H 06/06/24 15:15 Pulse 95 H 06/06/24 15:15 Respiratory Rate 18 06/06/24 15:15 Respiratory Effort Short of Breath, Incrsd Work of Breathing 06/06/24 13:25 Blood Pressure 108/60 06/06/24 15:15 Blood Pressure Mean 72 06/06/24 15:15 Blood Pressure Position Supine 06/06/24 13:29 Pulse Oximetry 95 06/06/24 15:01 Oxygen Delivery Method Nasal Cannula 06/06/24 13:29 Oxygen Flow Rate 3 06/06/24 13:29 Pain Level 0 06/06/24 13:29 Lab/Test Results Lab/Test Results: 06/06/24 13:45 Blood Blood Culture - Pending 06/06/24 13:41 Blood Blood Culture - Pending Laboratory Tests Range/Units 06/06/24 06/06/24 06/06/24 13:41 14:01 14:45 WBC (4.4-10.8) 10^3/uL 12.60 H RBC (3.93-5.22) 10^6/uL 3.17 L Hgb (11.2-15.7) g/dL 9.0 L Hct (36.0-46.0) % 30.0 L MCV (80-95) fL 95 MCH (27.0-33.0) pg 28.4 MCHC (32.0-36.0) % 30.0 L RDW (11.7-14.6) % 14.8 H Plt Count (130-400) 10^3/uL 284 MPV (8.0-11.0) fL 10.3 Immature Gran % % 0.5 Neutrophils % % 86.0 Lymphocytes % % 6.0 Monocytes % % 7.1 Eosinophils % % 0.1 Basophils % % 0.3 Nucleated RBC % (0.0-0.3) % 0.0 Absolute Neutrophils (1.2-6.7) 10^3/uL 10.84 H Absolute Lymphocytes (1.2-3.4) 10^3/uL 0.76 L Absolute Monocytes (0.1-0.8) 10^3/uL 0.89 H Absolute Eosinophils (0.0-0.7) 10^3/uL 0.01 Absolute Basophils (0.0-0.2) 10^3/uL 0.04 VBG pH (7.31-7.41) 7.36 VBG pCO2 (41-51) mmHg 69 H* VBG pO2 mmHg 38 VBG HCO3 (23-28) mmol/L 39 H VBG Total CO2 (24-29) mmol/L 37 H VBG O2 Saturation % 69 VBG Base Excess (-2-3) mmol/L 14 H VBG Lactate (0.6-1.4) mmol/L 0.9 Sodium (136-145) mmol/L 143 Potassium (3.5-5.1) mmol/L 4.9 Chloride (98-107) mmol/L 105 Carbon Dioxide (21.0-32.0) mmol/L 36.8 H Anion Gap (3-11) mmol/L 1.2 L BUN (7-18) mg/dL 8 Creatinine (0.55-1.02) mg/dL 0.7 Est GFR (CKD-EPI 2020) (mL/min/1.73m2) 85.76 Glucose (74-106) mg/dL 111 H Calcium (8.5-10.1) mg/dL 8.6 Total Bilirubin (0.2-1.0) mg/dL 0.33 AST (15-37) U/L 17 ALT (14-59) U/L 20 Alkaline Phosphatase (46-116) U/L 106 Troponin I (<or=51) ng/L 53 H* 41 Total Protein (6.4-8.2) g/dL 5.9 L Albumin (3.4-5.0) g/dL 1.9 L Procalcitonin ng/mL 0.6 COVID-19 Source Nasopharynx SARS-CoV-2 (PCR) (Negative) Negative Influenza Type A (PCR) (Negative) Negative Influenza Type B (PCR) (Negative) Negative RSV (PCR) (Negative) Negative Medical Decision Making 83-year-old female presenting with report of recurrent pneumonia and hypoxia. Patient is febrile and hypoxic here after receiving Tylenol. I will wait an additional hour trimester more Tylenol. She will receive 1 L of fluids as she did become hypotensive. I will also administer cefepime, Vanco, and azithromycin. Patient blood pressure has improved. She does not require pressors at this time. She wishes to be DNR/DNI status. I did have a discussion with patient's Sister Marzena as well who would like patient to make her own decisions at this time. I spoke with Dr. Walter, who thinks patient has a large hiatal hernia likely causing aspiration pneumonia. At this time patient is on her baseline oxygen, she is not hypoxic. She is answering questions appropriately she is hypercarbic but it looks like it is her baseline and she is not in significant respiratory distress. Her lungs have rhonchi. Patient wishes to remain DNR/DNI status but is agreeable to interventions such as IV antibiotics, IV fluids, admission to the hospital. I had a long discussion with sister regarding advanced directives and both patient and sister would like to have continued treatment at this time but wished to remain DNR/DNI. Patient will require admission to the hospital, unfortunately we do not have ICU beds at this time given patient's septic shock criteria requiring IV fluids at this time and potential for decompensation I think she will require transfer to a facility that does have intensive care keep availability. Quality:SDOH Health Related Social Needs: No Data to Display PFSH All Active Problems (Updated 06/06/24 @ 19:38 by Yoselin George MD) Sepsis (Acute) Chronic pain (Chronic) Pneumonia (Acute) Sepsis associated hypotension (Acute) Nail dystrophy (Acute) Hypokalemia (Acute) Acute on chronic respiratory failure with hypoxia and hypercapnia (Acute) Respiratory failure (Acute) Pneumonia (Acute) Chronic hypoxic respiratory failure (Acute) Displaced intertrochanteric fracture of left femur, subsequent encounter for closed fracture with malunion (Acute) Pain due to internal orthopedic prosthetic device (Acute) Lung disease (Acute) Left hip pain (Acute) Interstitial lung disease (Acute) secondary to chronic aspiration Seasonal allergies (Acute) Skin ulcer (Acute) Community acquired pneumonia (Acute) DNR (do not resuscitate) (Acute) E. 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 fell down and could not get up Morbid obesity (Chronic) Allergic rhinitis (Chronic) Hyperlipidemia (Chronic) Fibromyalgia (Chronic) DJD (degenerative joint disease) (Chronic) Gastroesophageal reflux disease (Chronic) Hiatal hernia (Chronic) Irritable bowel syndrome (Chronic) History of surgery (Chronic) a. S/P open right ankle fracture/dislocation. b. Left knee arthroscopy. c. Right wrist fracture repair. d. T/A as a child. Dehydration, mild (Acute 09/22/14) Housing or economic circumstance (Chronic 09/22/14) a. No heat for 1-1/2 days H/O fall (Chronic) Anemia (Chronic) Alcohol withdrawal delirium (Acute 09/22/14) Rhabdomyolysis (Acute 09/22/14) Ataxia (Chronic) Onychomycosis (Chronic) Depression (Chronic) Medical History Frequent falls Alcohol withdrawal NSIP (nonspecific interstitial pneumonia) Fracture of right inferior pubic ramus Fracture of right superior pubic ramus ACP (advance care planning) Laceration of skin of right forearm Skin ulcer of lower leg Laceration of arm, right, complicated Fractured pelvis T12 compression fracture Acute exacerbation of chronic low back pain Fall Person living alone (09/22/14) Hiatal hernia IBS (irritable bowel syndrome) Hypertension Allergic rhinitis GERD (gastroesophageal reflux disease) DJD (degenerative joint disease) Hyperlipidemia Hypercholesterolemia Fibromyalgia Depression Anemia Alcohol abuse Insomnia Surgical History Tonsillectomy and adenoidectomy Repair fracture right wrist ORIF right ankle Colonoscopy - MAC (11/18/16) Arthroplasty of knee left Family History Mother Dementia Maternal Aunt Diabetes Social History Smoking/Tobacco Use Status: Former Tobacco Use Smoking risk assessment performed?: Yes Alcohol Intake: current Alcohol Intake frequency: 0-2 drinks per day Alcohol type: wine Counseling given: Yes Details: 1-2 bottle of wine/day Drug use: Current Sobriety Substance use type: does not use and marijuana Details: two tokes for sleep Housing: snf Do you feel safe at home: Yes Do you feel safe in your relationship?: Yes Additional Social history: Lives alone in home in [facility], has a cat. States hasn't been out of house for a year. One sister in [place]
--- NOTE | 2024-06-06 16:23 | W.EDPROG ---
Date of service: 06/06/24 Time of Service: 16:23 Medical Decision Making In brief, this is an 83-year-old female patient who is in our emergency department with a recurrence of sepsis due to pneumonia and acute on chronic respiratory failure with hypercapnia and hypoxia, awaiting final disposition. Prior to my taking over her care, the patient had CT imaging of her chest that showed worsening of her bilateral infiltrates, which in conjunction with a large hiatal hernia is concerning for potential recurrent aspiration pneumonia. She received cefepime, vancomycin, and azithromycin, as well as a liter of IV fluid and Decadron for hypotension, which resolved. She had a low lactate, a hypercarbia to 67 without associated acidosis, and has been oxygenating well on nasal cannula. Given that our facility is not available to accept new admits due to full sentences, and because the patient has family members in the [place] region, we reached out to [facility] who is graciously accepted this patient for transfer to their facility for further workup and management of her illness. The patient remained hemodynamically appropriate, mentating well, and without change from prior documentation by the previous provider. She left our facility under EMS care without incident. Yoselin George MD Medical Records Medical records reviewed: Yes I reviewed the patient's medical records. Lab Data Lab results reviewed: Yes I reviewed the patient's lab results. Quality:SDOH Health Related Social Needs: No Data to Display Discharge Plan Disposition Patient Disposition: Transfer-Acute Inpatient Care Specific Acute Inpt Facility: [place] Condition: Fair Discharge Details Chief Complaint: Fever Clinical Impression: Acute on chronic respiratory failure with hypoxia and hypercapnia, Pneumonia, Anemia, Hyperlipidemia, Interstitial lung disease, DNR (do not resuscitate), Sepsis Primary Care Provider: Iesha Leary ED Provider: Yoselin Goerge Home Meds and New Rx's Prescriptions: No Action Balanced B-100 Complex 100 mg tablet extended release 1 tab PO DAILY vitamin A 2,400 mcg capsule 2,400 mcg PO DAILY PRN ginkgo biloba 40 mg tablet 240 mg PO DAILY PRN Rx Instructions: give with meal/snack magnesium 250 mg tablet 500 mg PO BID zinc acetate 25 mg (zinc) capsule 100 mg PO BID vitamin E (dl, acetate) 45 mg (100 unit) capsule 180 mg PO DAILY loratadine [Allergy Relief (loratadine)] 10 mg tablet 10 mg PO DAILY polyethylene glycol 3350 17 gram/dose powder 17 g PO DAILY Neuriva Original 100-100 mg capsule 1 cap PO DAILY PRN calcium carbonate [Tums Ultra] 400 mg calcium (1,000 mg) tablet,chewable 2,000 mg PO DAILY PRN Rx Instructions: take 2 tablets (2000mg) by mouth daily *patient will supply sucralfate 1 gram tablet 1 g PO TID omeprazole 20 mg capsule,delayed release(DR/EC) 20 mg PO BID Qty: 60 12RF bisacodyl 10 mg suppository 10 mg [place] DAILY PRN multivitamin Tablet 1 tab PO DAILY benzonatate 100 mg capsule 100 mg PO BID montelukast 10 mg tablet 10 mg PO DAILY Qty: 90 4RF ferrous sulfate 325 MG tablet 325 mg PO TID cholecalciferol (vitamin D3) [Vitamin D3] 400 UNIT tablet 50 mcg PO DAILY glucosamine sulfate 2KCl 1,000 MG tablet 500 mg PO BID ascorbic acid (vitamin C) 1,000 mg tablet 1 g PO BID medroxyprogesterone [Provera] 2.5 MG tablet 2.5 mg PO DAILY duloxetine [Cymbalta] 60 mg capsule,delayed release(DR/EC) 60 mg PO BID quetiapine 50 mg tablet 50 mg PO QPM Patient Comments: TAKE ONE TABLET BY MOUTH EVERY EVENING trazodone 100 mg tablet 200 mg PO HS Patient Comments: TAKE 2 TABLETS BY MOUTH EVERY NIGHT morphine concentrate 20 mg/mL syringe 10 mg sublingual ONCE ipratropium-albuterol 0.5 mg-3 mg(2.5 mg base)/3 mL solution for nebulization 3 ml INHALATION TID levofloxacin 750 mg tablet 750 mg PO DAILY Qty: 10 0RF potassium chloride 20 MEQ tablet,ER particles/crystals 20 meq PO TID Rx Instructions: 20 MG PO TID DIRECTED fluticasone propionate 50 mcg/actuation spray,suspension 1 spray INTRANASAL BID Patient Comments: SPRAY ONE SPRAY IN EACH NOSTRIL TWICE A DAY Rx Instructions: ONE SPRAY EACH NOSTRIL BID morphine 30 mg tablet extended release 30 mg PO Q8H MDD 45 calcitonin (salmon) 200 unit/actuation [place],Non-Aerosol 1 spray NS DAILY Rx Instructions: 1 spray in left nostril daily- alternate nostrils every other day albuterol sulfate [Ventolin HFA] 90 mcg/actuation Hfa Aerosol Inhaler 2 puff inhalation TID midodrine 5 mg tablet 5 mg PO TID pregabalin 75 mg capsule 75 mg PO TID hydromorphone 2 mg tablet 2 mg PO HS MDD 1 Rx Instructions: Hold if patient refuses or staff feels she is somulent Thaddeus,saliva-B.Christentherm [Acidophilus Probiotic Blend] 175 mg capsule 1 cap PO DAILY cyclosporine 0.05 % Dropperette 1 drp OU BID
[2024-06-06 17:05] LABS: Bilirubin Negative (Negative); Blood Negative (Negative); Clarity Clear (Clear); Glucose Negative (Negative); Ketones Negative (Negative); Leukocyte Esterase Negative (Negative); Nitrite Negative (Negative); Urobilinogen 0.2 mg/dL (Up to 0.2); pH 5.5 (5-8)
[2024-06-06] MEDS: Water,Injection,Sterile 10 ML VIAL (17:08)
[2024-06-06] MEDS: AZITHROMYCIN 500 MG in DEXTROSE 5%-WATER 250 ML 250 MG IVPB (17:08)
[2024-06-06 17:09] LABS: BE (Venous) 5 mmol/L (-2-3); HCO3 (Venous) 31 mmol/L (23-28); O2 Sat (Venous) 92 %; TCO2 (Venous) 30 mmol/L (24-29); pCO2 (Venous) 58 mmHg (41-51); pH (Venous) 7.34 (7.31-7.41); pO2 (Venous) 70 mmHg
[2024-06-06 17:44] LABS: Troponin I 31 ng/L (<or=51)
[2024-06-06] MEDS: guaiFENesin 200 MG/10 ML CUP 100 MG PO (17:58)
== END 2024-06-06 19:54 | disposition short-term general hospital (02) ==
PROVIDERS: Physician Assistant; Emergency Provider Emergency Medicine; PCP Family Medicine
DX: J96.21 Acute and chronic respiratory failure with hypoxia (principal); J96.22 Acute and chronic respiratory failure with hypercapnia; J18.9 Pneumonia, unspecified organism; D64.9 Anemia, unspecified; E78.5 Hyperlipidemia, unspecified; A41.9 Sepsis, unspecified organism; Z66 Do not resuscitate; Z87.891 Personal history of nicotine dependence
CPT/HCPCS: 00123; 74177; 80053; 82805; 84145; 87040; 87637; 93005; 96365; 96367; 96368; 96375; 99285; 71260; 81003; 83605; 84484; 85025; 93010; J0456; J0692; J1100; J3372; J3490

== ENCOUNTER 2024-06-17 21:30 | Outpatient (REF) | payer MEDICARE, MEDICAID, SELFPAY ==
[2024-06-17 19:20] LABS: Abs Immature Grans 0.08 10^3/uL (0.0-0.06); Absolute Basophil Count 0.04 10^3/uL (0.0-0.2); Absolute Eosinophil Count 0.48 10^3/uL (0.0-0.7); Absolute Monocyte Count 0.61 10^3/uL (0.1-0.8); Absolute Neutrophil Count 2.88 10^3/uL (1.2-6.7); Basophils % 0.7 %; HCT 30.1 % (36.0-46.0); Immature Grans % 1.3 %; Lymphocytes % 31.7 %; MCH 28.2 pg (27.0-33.0); MCHC 29.9 % (32.0-36.0); MCV 94 fL (80-95); MPV 11.7 fL (8.0-11.0); Monocytes % 10.2 %; Neutrophils % 48.1 %; Platelet Count 322 10^3/uL (130-400); RBC 3.19 10^6/uL (3.93-5.22); RDW 15.8 % (11.7-14.6); RDW-SD 55.1 fL; WBC 5.99 10^3/uL (4.4-10.8)
[2024-06-17 19:56] LABS: ALT 11 U/L (14-59); AST 18 U/L (15-37); Albumin 2.3 g/dL (3.4-5.0); Alkaline Phosphatase 106 U/L (46-116); Anion Gap 4.9 mmol/L (3-11); BUN 9 mg/dL (7-18); Bilirubin, Total 0.21 mg/dL (0.2-1.0); CO2 35.1 mmol/L (21.0-32.0); CREATININE 0.5 mg/dL (0.55-1.02); Calcium 9.2 mg/dL (8.5-10.1); Chloride 105 mmol/L (98-107); Glucose 110 mg/dL (74-106); Magnesium 2.2 mg/dL (1.8-2.4); Potassium 4.6 mmol/L (3.5-5.1); Sodium 145 mmol/L (136-145); Total Protein 5.4 g/dL (6.4-8.2)
== END 2024-06-17 21:31 | disposition home or self-care (01) ==
LOC: LBN 21:30
PROVIDERS: PCP Family Medicine; Visit Provider Nurse Practitioner Gerontology
DX: E83.42 Hypomagnesemia (principal); J18.9 Pneumonia, unspecified organism; E87.6 Hypokalemia
CPT/HCPCS: 80053; 83735; 85025

== ENCOUNTER 2024-06-20 05:58 | Inpatient (IN) | payer MEDICARE, MEDICAID, SELFPAY ==
[2024-06-20] VITALS (127 sets, daily range): BP systolic 77–218; BP diastolic 45–196; PULSE 72–103; RESP 2–29; TEMP 36.8–37.2; O2SAT 85–99
--- NOTE | 2024-06-20 06:00 | RT.EKG_ITS ---
APPROVED REPORT Exam: Resting ECG Reason for Exam: [facility] Patient Location: E HR:94 bpm ECG Measurements Heart Rate 94 AXIS NH 131 P 36 QRSd 89 QRS 13 QT 350 T 14 QTc 439 Conclusion Sinus rhythm...normal P axis, V-rate 60- 99 Low voltage, precordial leads...precordial leads <1.0mV Normal [place] There are no significant changes compared to prior EKG performed on 06/06/2024 at 13:09.
--- NOTE | 2024-06-20 06:00 | DI.RAD_ITS ---
Exam(s) XR PORTABLE CHEST AP EXAM: XR PORTABLE CHEST AP CLINICAL HISTORY: cough, fever TECHNIQUE: 2D digital imaging was performed. COMPARISON: CR XR CHEST 2V PA LATERAL from 05/17/2024 CR XR PORTABLE CHEST AP POST LINE from 05/27/[address] CHEST/ABD/PEL W from 06/06/2024 FINDINGS: Exam is limited by poor pulmonary inflation. Increased densities are seen primarily in the right mega g. There is crowding of pulmonary vessels related to expiratory changes. No gross effusions. Findi ngs roughly stable from prior. Central line no longer seen. LUNGS: Clear. No pleural abnormality seen. HEART: Normal size. AORTA: Normal diameter. BONES: Unremarkable for age. Soft tissues: Unremarkable. IMPRESSION: Limited exam due to poor inspiration. No significant change in right-sided infiltrates. DATA REPOSITORY: RADIATION DOSE DELIVERED:
--- NOTE | 2024-06-20 06:10 | ED.GENADUL_ITS ---
Discharge Plan Disposition Patient Disposition: Admit to [facility] Condition: Poor Discharge Details Clinical Impression: Recurrent pneumonia, Altered mental status Primary Care Provider: Iesha Leary ED Provider: Chandler Dickinson [place] Meds and New Rx's Prescriptions: No Action Balanced B-100 Complex 100 mg tablet extended release 1 tab PO DAILY vitamin A 2,400 mcg capsule 2,400 mcg PO DAILY PRN ginkgo biloba 40 mg tablet 240 mg PO DAILY PRN Rx Instructions: give with meal/snack magnesium 250 mg tablet 500 mg PO BID zinc acetate 25 mg (zinc) capsule 100 mg PO BID vitamin E (dl, acetate) 45 mg (100 unit) capsule 180 mg PO DAILY loratadine [Allergy Relief (loratadine)] 10 mg tablet 10 mg PO DAILY polyethylene glycol 3350 17 gram/dose powder 17 g PO DAILY Neuriva Original 100-100 mg capsule 1 cap PO DAILY PRN calcium carbonate [Tums Ultra] 400 mg calcium (1,000 mg) tablet,chewable 2,000 mg PO DAILY PRN Rx Instructions: take 2 tablets (2000mg) by mouth daily *patient will supply sucralfate 1 gram tablet 1 g PO TID omeprazole 20 mg capsule,delayed release(DR/EC) 20 mg PO BID Qty: 60 12RF bisacodyl 10 mg suppository 10 mg [place] DAILY PRN multivitamin Tablet 1 tab PO DAILY benzonatate 100 mg capsule 100 mg PO BID montelukast 10 mg tablet 10 mg PO DAILY Qty: 90 4RF ferrous sulfate 325 MG tablet 325 mg PO TID cholecalciferol (vitamin D3) [Vitamin D3] 400 UNIT tablet 50 mcg PO DAILY glucosamine sulfate 2KCl 1,000 MG tablet 500 mg PO BID ascorbic acid (vitamin C) 1,000 mg tablet 1 g PO BID medroxyprogesterone [Provera] 2.5 MG tablet 2.5 mg PO DAILY duloxetine [Cymbalta] 60 mg capsule,delayed release(DR/EC) 60 mg PO BID quetiapine 50 mg tablet 50 mg PO QPM Patient Comments: TAKE ONE TABLET BY MOUTH EVERY EVENING trazodone 100 mg tablet 200 mg PO HS Patient Comments: TAKE 2 TABLETS BY MOUTH EVERY NIGHT morphine concentrate 20 mg/mL syringe 10 mg sublingual ONCE ipratropium-albuterol 0.5 mg-3 mg(2.5 mg base)/3 mL solution for nebulization 3 ml INHALATION TID levofloxacin 750 mg tablet 750 mg PO DAILY Qty: 10 0RF potassium chloride 20 MEQ tablet,ER particles/crystals 20 meq PO TID Rx Instructions: 20 MG PO TID DIRECTED fluticasone propionate 50 mcg/actuation spray,suspension 1 spray INTRANASAL BID Patient Comments: SPRAY ONE SPRAY IN EACH NOSTRIL TWICE A DAY Rx Instructions: ONE SPRAY EACH NOSTRIL BID morphine 30 mg tablet extended release 30 mg PO Q8H MDD 45 calcitonin (salmon) 200 unit/actuation [place],Non-Aerosol 1 spray NS DAILY Rx Instructions: 1 spray in left nostril daily- alternate nostrils every other day albuterol sulfate [Ventolin HFA] 90 mcg/actuation Hfa Aerosol Inhaler 2 puff inhalation TID midodrine 5 mg tablet 5 mg PO TID pregabalin 75 mg capsule 75 mg PO TID hydromorphone 2 mg tablet 2 mg PO HS MDD 1 Rx Instructions: Hold if patient refuses or staff feels she is somulent L.acidoph,saliva-B.bif-S.therm [Acidophilus Probiotic Blend] 175 mg capsule 1 cap PO DAILY cyclosporine 0.05 % Dropperette 1 drp OU BID pantoprazole 40 mg tablet,delayed release (DR/EC) 40 mg PO QAM enoxaparin 40 mg/0.4 mL syringe amoxicillin-pot clavulanate 875-125 mg tablet 1 tab PO BID HPI General Mode of arrival: EMS . Date/Time Provider Initiated Documentation: 06/20/24 06:05 . Limitations to Documentation: altered mental status . Information obtained by: EMS, RN notes reviewed and old records reviewed . HPI Narrative: Patient transported to ED by EMS with altered mental status, fever, low oxygen saturation. This will be the patient's fourth ED visit for similar presentation since the end of April. Last ED visit resulted in transfer to [facility] due to lack of capacity here. She was admitted there on the and returned to [facility] on the . This morning found to be altered with low O2 saturations and temp to 101. On arrival here patient is altered. Saturations at 90 on 4 L nasal cannula. She is unable to provide any meaningful history. Previously, had been DNR/DNI. More recently has been DNI only. Related Data Home Medications ?Medication ?Instructions ?Recorded ?Confirmed cholecalciferol (vitamin D3) 10 50 mcg PO DAILY 12/06/13 06/20/24 mcg (400 unit) tablet (Vitamin D3) ferrous sulfate 325 mg (65 mg 325 mg PO TID 12/06/13 06/20/24 iron) tablet glucosamine sulfate 2KCl 1,000 mg 500 mg PO BID 12/06/13 06/20/24 tablet medroxyprogesterone 2.5 mg tablet 2.5 mg PO DAILY 11/18/16 06/20/24 (Provera) potassium chloride 20 mEq 20 meq PO TID 11/25/16 06/20/24 tablet,extended release(part/cryst) fluticasone propionate 50 1 spray intranasal BID 09/19/20 06/20/24 mcg/actuation nasal spray,suspension quetiapine 50 mg tablet 50 mg PO QPM 03/19/22 06/20/24 trazodone 100 mg tablet 200 mg PO HS 03/19/22 06/20/24 ginkgo biloba 40 mg tablet 240 mg PO DAILY PRN 10/18/23 06/20/24 magnesium 250 mg tablet 500 mg PO BID 10/18/23 06/20/24 vit B complex 100 combo no.2 100 1 tab PO DAILY 10/18/23 06/20/24 mg tablet,extended release (Balanced B-100 Complex) vitamin A 2,400 mcg capsule 2,400 mcg PO DAILY PRN 10/18/23 06/20/24 vitamin E (dl, acetate) 45 mg (100 180 mg PO DAILY 10/18/23 06/20/24 unit) capsule zinc acetate 25 mg (zinc) capsule 100 mg PO BID 10/18/23 06/20/24 ascorbic acid (vitamin C) 1,000 mg 1 g PO BID 01/23/24 06/20/24 tablet loratadine 10 mg tablet (Allergy 10 mg PO DAILY 01/23/24 06/20/24 Relief (loratadine)) duloxetine 60 mg capsule,delayed 60 mg PO BID 03/20/24 06/20/24 release (Cymbalta) calcium carbonate (Tums Ultra) 2,000 mg PO DAILY PRN 04/09/24 06/20/24 coffee extract 100 mg-phosphatidyl 1 cap PO DAILY PRN 04/09/24 06/20/24 serine 100 mg capsule (Neuriva Original) polyethylene glycol 3350 17 17 g PO DAILY 04/09/24 06/20/24 gram/dose oral powder benzonatate 100 mg capsule 100 mg PO BID 04/29/24 06/20/24 bisacodyl 10 mg rectal suppository 10 mg [place] DAILY PRN 04/29/24 06/20/24 multivitamin 1 tab PO DAILY 04/29/24 06/20/24 montelukast 10 mg tablet 10 mg PO DAILY #90 tabs 05/02/24 06/20/24 omeprazole 20 mg capsule,delayed 20 mg PO BID #60 caps 05/13/24 06/20/24 release sucralfate 1 gram tablet 1 g PO TID 05/13/24 06/20/24 albuterol sulfate 90 mcg/actuation 2 puff inhalation TID 05/17/24 06/20/24 aerosol inhaler (Ventolin HFA) calcitonin (salmon) 200 1 spray NS DAILY 05/17/24 06/20/24 unit/actuation nasal spray midodrine 5 mg tablet 5 mg PO TID 05/17/24 06/20/24 morphine 30 mg tablet,extended 30 mg PO Q8H 05/17/24 06/20/24 release hydromorphone 2 mg tablet 2 mg PO HS pain 05/18/24 06/20/24 pregabalin 75 mg capsule 75 mg PO TID 05/18/24 06/20/24 ipratropium 0.5 mg-albuterol 3 mg 3 ml inhalation TID 05/27/24 06/20/24 (2.5 mg base)/3 mL nebulization soln morphine concentrate 20 mg/mL oral 10 mg sublingual ONCE 05/27/24 06/20/24 syringe (FOR ORAL USE ONLY) levofloxacin 750 mg tablet 750 mg PO DAILY #10 tabs 05/30/24 06/20/24 L.acidophil,salivari-Bifido 1 cap PO DAILY 06/06/24 06/20/24 bifidum-Strep thermoph 175 mg capsule (Acidophilus Probiotic Blend) cyclosporine 0.05 % eye drops in a 1 drp OU BID 06/06/24 06/20/24 dropperette amoxicillin 875 mg-potassium 1 tab PO BID 06/20/24 06/20/24 clavulanate 125 mg tablet enoxaparin 40 mg/0.4 mL mg 10/31/24 subcutaneous syringe pantoprazole 40 mg tablet,delayed 40 mg PO QAM 06/20/24 06/20/24 release Previous Rx's ?Medication ?Instructions ?Recorded montelukast 10 mg tablet 10 mg PO DAILY #90 tabs 05/02/24 omeprazole 20 mg capsule,delayed 20 mg PO BID #60 caps 05/13/24 release levofloxacin 750 mg tablet 750 mg PO DAILY #10 tabs 05/30/24 Allergies Allergy/AdvReac Type Severity Reaction Status Date / Time fentanyl AdvReac Nausea Verified 06/20/24 06:05 General Stated Complaint: AMS/LOC MELISSA: 2 Review of Systems Unobtainable due to mental status Exam Narrative Exam Narrative: Const: Obese elderly female altered by in no distress. VS per triage. HEENT: NC/AT. Normal facial exam. Neck: Supple. Trachea midline. Lungs: Mild increased work of breathing with coarse rhonchi throughout. Cor: RRR without murmur. Good radial pulses. GI: Soft/ND/NT. Neuro: Oriented x 1. Slow to respond and does not follow commands well. LEONARD x4. Ext: No C/C/E. Course Vital Signs Vital signs: Vital Signs Pulse 98 H 06/20/24 05:58 Respiratory Rate 24 06/20/24 05:58 Blood Pressure 218/196 H 06/20/24 05:58 Pulse Oximetry 89 L 06/20/24 05:58 Pulse 98 H 06/20/24 05:58 Respiratory Rate 22 06/20/24 06:04 Respiratory Effort Normal 06/20/24 06:04 Respiratory Depth Normal 06/20/24 06:04 Respiratory Pattern Normal 06/20/24 06:04 Blood Pressure 218/196 H 06/20/24 05:58 Blood Pressure Position Sitting 06/20/24 05:58 Pulse Oximetry 89 L 06/20/24 05:58 Oxygen Delivery Method Nasal Cannula 06/20/24 05:58 Oxygen Flow Rate 4 06/20/24 05:58 Lab/Test Results Lab/Test Results: 06/20/24 06:05 Blood Blood Culture - Pending 06/20/24 06:05 Blood Blood Culture - Pending Medical Decision Making Patient returns to ED from [facility] with recurrent fever, altered mental status, low O2 saturations. Just return to [facility] on the after an admission at [facility]. Previously admitted twice here earlier in the month. Per old records she tends to have chronically low blood pressure and should be on midodrine. She is not tachycardic. She has mild increased work of breathing. She has diffuse coarse rhonchi right greater than left. Suspect recurrent pneumonia and at this point suspect this is recurrent aspiration pneumonia. However, because of her multiple hospital admissions will cover with Vanco in addition to Zosyn once cultures obtained. EKG, chest x-ray, laboratory studies are ordered. Patient's EKG is sinus rhythm with no acute ST changes and no significant change from previous. Portable chest x-ray per my read with multilobar pneumonia on the right. Left lung actually looks fairly clear. Her VBG shows a normal pH and a chronically elevated pCO2. Her other labs remain baseline with no significant changes. Her initial troponin is normal. Blood pressures are running in the 90s which is patient's baseline per old records and based on the fact that she is on midodrine. Heart rate is in the 90s. Saturations on 4 L in the mid to high 90s. Case discussed with hospitalist. Patient to be readmitted for recurrent pneumonia and altered mental status. Medical Records Medical records reviewed: Yes I reviewed the patient's medical records. Medical records narrative: See [facility] Imaging Data Radiologic Study: Attestation: I personally reviewed and interpreted this imaging study as follows: Imaging: X-Ray My impression: See [facility] Lab Data Lab results reviewed: Yes I reviewed the patient's lab results. Lab results narrative: See [facility] ECG Data Attestation: I personally reviewed and interpreted this ECG (s) as follows: Prior ECG tracings: available for review Interpretation: See [facility]/EKG [facility] All Active Problems (Updated 06/20/24 @ 07:23 by Chandler Dickinson MD) Altered mental status (Acute) Recurrent pneumonia (Acute) Sepsis (Acute) Chronic pain (Chronic) Pneumonia (Acute) Sepsis associated hypotension (Acute) Nail dystrophy (Acute) Acute on chronic respiratory failure with hypoxia and hypercapnia (Acute) Respiratory failure (Acute) Chronic hypoxic respiratory failure (Acute) Displaced intertrochanteric fracture of left femur, subsequent encounter for closed fracture with malunion (Acute) Pain due to internal orthopedic prosthetic device (Acute) Lung disease (Acute) Left hip pain (Acute) Interstitial lung disease (Acute) secondary to chronic aspiration Seasonal allergies (Acute) Skin ulcer (Acute) Community acquired pneumonia (Acute) DNR (do not resuscitate) (Acute) E. 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 fell down and could not get up Morbid obesity (Chronic) Allergic rhinitis (Chronic) Hyperlipidemia (Chronic) Fibromyalgia (Chronic) DJD (degenerative joint disease) (Chronic) Gastroesophageal reflux disease (Chronic) Hiatal hernia (Chronic) Irritable bowel syndrome (Chronic) History of surgery (Chronic) a. S/P open right ankle fracture/dislocation. b. Left knee arthroscopy. c. Right wrist fracture repair. d. T/A as a child. Dehydration, mild (Acute 09/22/14) Housing or economic circumstance (Chronic 09/22/14) a. No heat for 1-1/2 days H/O fall (Chronic) Anemia (Chronic) Alcohol withdrawal delirium (Acute 09/22/14) Rhabdomyolysis (Acute 09/22/14) Ataxia (Chronic) Onychomycosis (Chronic) Depression (Chronic) Medical History Pneumonia Non-sustained ventricular tachycardia Hypotension Intertrochanteric fracture of left femur S/P IM FIXATION 01/01/24 Insomnia Frequent falls Alcohol withdrawal NSIP (nonspecific interstitial pneumonia) Fracture of right inferior pubic ramus Fracture of right superior pubic ramus ACP (advance care planning) Laceration of skin of right forearm Skin ulcer of lower leg Laceration of arm, right, complicated Fractured pelvis T12 compression fracture Acute exacerbation of chronic low back pain Fall Person living alone (09/22/14) Hiatal hernia IBS (irritable bowel syndrome) Hypertension Allergic rhinitis GERD (gastroesophageal reflux disease) DJD (degenerative joint disease) Hyperlipidemia Hypercholesterolemia Fibromyalgia Depression Anemia Alcohol abuse Insomnia Surgical History Tonsillectomy and adenoidectomy Repair fracture right wrist ORIF right ankle Colonoscopy - MAC (11/18/16) Arthroplasty of knee left Family History Mother Dementia Maternal Aunt Diabetes Social History Smoking/Tobacco Use Status: Former Tobacco Use Smoking risk assessment performed?: Yes Alcohol Intake: current Alcohol Intake frequency: 0-2 drinks per day Alcohol type: wine Counseling given: Yes Details: 1-2 bottle of wine/day Drug use: Current Sobriety Substance use type: does not use and marijuana Details: two tokes for sleep Housing: senior living Do you feel safe at home: Yes Do you feel safe in your relationship?: Yes Additional Social history: LIVES AT [facility]
[2024-06-20 06:26] LABS: Abs Immature Grans 0.05 10^3/uL (0.0-0.06); Absolute Basophil Count 0.03 10^3/uL (0.0-0.2); Absolute Eosinophil Count 0.26 10^3/uL (0.0-0.7); Absolute Lymphocyte Count 1.14 10^3/uL (1.2-3.4); Absolute Monocyte Count 0.83 10^3/uL (0.1-0.8); Absolute Neutrophil Count 7.95 10^3/uL (1.2-6.7); BE (Venous) 11 mmol/L (-2-3); Basophils % 0.3 %; Eosinophils % 2.5 %; HCO3 (Venous) 37 mmol/L (23-28); HCT 33.9 % (36.0-46.0); HGB 10.3 g/dL (11.2-15.7); Immature Grans % 0.5 %; Lymphocytes % 11.1 %; MCH 28.8 pg (27.0-33.0); MCHC 30.4 % (32.0-36.0); MCV 95 fL (80-95); MPV 11.2 fL (8.0-11.0); Monocytes % 8.1 %; Neutrophils % 77.5 %; O2 Sat (Venous) 61 %; Platelet Count 258 10^3/uL (130-400); RBC 3.58 10^6/uL (3.93-5.22); RDW 15.3 % (11.7-14.6); RDW-SD 53.1 fL; TCO2 (Venous) 35 mmol/L (24-29); WBC 10.26 10^3/uL (4.4-10.8); pH (Venous) 7.35 (7.31-7.41); pO2 (Venous) 34 mmHg
[2024-06-20 06:28] LABS: pCO2 (Venous) 67 mmHg (41-51)
[2024-06-20] MEDS: Normal Saline 500 ML IV (06:30)
[2024-06-20] MEDS: PIPERACILLIN/TAZO 4.5 GM in Normal Saline 100 ML IVPB (06:30)
[2024-06-20 06:53] LABS: ALT 10 U/L (14-59); AST 16 U/L (15-37); Albumin 2.2 g/dL (3.4-5.0); Alkaline Phosphatase 122 U/L (46-116); Anion Gap 4.4 mmol/L (3-11); BUN 10 mg/dL (7-18); Bilirubin, Total 0.27 mg/dL (0.2-1.0); CO2 36.6 mmol/L (21.0-32.0); CREATININE 0.6 mg/dL (0.55-1.02); Chloride 102 mmol/L (98-107); Estimated GFR 89.01 (mL/min/1.73m2); Glucose 109 mg/dL (74-106); Magnesium 1.8 mg/dL (1.8-2.4); Potassium 4.8 mmol/L (3.5-5.1); Sodium 143 mmol/L (136-145); Total Protein 6.5 g/dL (6.4-8.2); Troponin I 41 ng/L (<or=51)
[2024-06-20 07:09] LABS: COVID-19 PCR Negative (Negative); Influenza A PCR Negative (Negative); Influenza B PCR Negative (Negative); RSV PCR Negative (Negative)
[2024-06-20 07:12] LABS: Source Nasopharynx
[2024-06-20] MEDS: VANCOMYCIN/WATER (PEG) 1.75 GM/350 ML BAG IVPB (07:34)
--- NOTE | 2024-06-20 07:39 | DI.VRAD_ITS ---
PROCEDURE INFORMATION: Exam: XR Chest Exam date and time: 06/20/2024 6:28 AM Age: 83 years old Clinical indication: Cough and fever TECHNIQUE: Imaging protocol: Radiologic exam of the chest. Views: 1 view. COMPARISON: CT CHEST/ABD/PEL W 06/06/2024 2:11 PM FINDINGS: Lungs: There are bilateral perihilar airspace opacities, increased. Pleural spaces: Unremarkable. No pleural effusion. No pneumothorax. Heart/Mediastinum: Unremarkable. No cardiomegaly. Bones/joints: Unremarkable. IMPRESSION: Increased perihilar airspace opacities. Differential considerations include pulmonary edema, multifocal pneumonia. Dictated and Authenticated by: Shirley Jacobs MD. Ordering:MAHI Arteaga MD
[2024-06-20 08:14] LABS: Troponin I 44 ng/L (<or=51)
--- NOTE | 2024-06-20 08:22 | HPE_ITS ---
Date of service: 06/20/24 Time of Service: 08:22 Assessment and Plan Assessment and plan (1) Recurrent pneumonia: Start date: 06/20/24 Status: Acute Assessment and plan: This is an 83-year-old lady with recurrent right pneumonia with patient stated she had full evaluation for aspiration which was negative. She also thinks that she did not have a left hip repair though there is an operative note from December 2023 with fixation of her left hip fracture. She has had recurrent pneumonia since her hip fracture and is declining. She did have a short stent in [place], [place] near her relative who reviewed her CODE STATUS and changed to a DNI rather than DNR/DNI. The patient is not doing well and not recovering. She would like to live near her relative importance [facility] and may consider comfort measures if she has recurrent respiratory infections despite antibiotic therapy. She will be admitted with treatment for possible aspiration pneumonia and patient care will be consulted. Long-term she may want to change senior care to be closer to family. (2) Chronic hypoxic respiratory failure: Status: Chronic Assessment and plan: Exacerbated with increased hypoxemia and element of hypercapnia which appears chronic as well. Continue O2 supplementation and avoid BiPAP with patient wishes to be a DNI. Aggressive respiratory treatment with nebulizers. Attempt loosening and clearing of secretions with moist rhonchi when patient is coughing. This may help her hypoxemia and CO2 retention. (3) Altered mental status: Start date: 06/20/24 Status: Acute Assessment and plan: Patient did have all of her blood test with hypoxemia. This is improving with adequate oxygenation. Qualifiers: Altered mental status type: delirium Qualified Code(s): R41.0 - Disorientation, unspecified (4) Hypotension: Assessment and plan: Continue midodrine as scheduled. Qualifiers: Hypotension type: hypotension due to hypovolemia Qualified Code(s): E 86.1 - Hypovolemia (5) Chronic pain: Status: Chronic Assessment and plan: Continue current pain management. Qualifiers: Chronic pain type: chronic pain syndrome Qualified Code(s): G89.4 - Chronic pain syndrome (6) Hyperlipidemia: Status: Chronic Assessment and plan: Continue statin therapy. Qualifiers: Hyperlipidemia type: mixed hyperlipidemia Qualified Code(s): E78.2 - Mixed hyperlipidemia (7) Gastroesophageal reflux disease: Status: Chronic Assessment and plan: Continue PPI with Carafate. Qualifiers: Esophagitis presence: esophagitis presence not specified Qualified Code(s): K21.9 - Gastro-esophageal reflux disease without esophagitis (8) Depression: Status: Chronic Assessment and plan: Continue chronic medical therapy. Patient may have some element of situational depression. Qualifiers: Depression Type: other depression Qualified Code(s): F32.89 - Other specified depressive episodes History of Present Illness History of Present Illness Chief Complaint: Altered mental status with hypoxemia and fever. Narrative: This is an 83-year-old female patient who resides at the [facility], at local senior care who has had a fall in December 2023 with a broken hip with repair and has been declining since. Patient stated that her hip could not be fixed because of high anesthesia risk though review of the operative note 01/01/2024 confirms fixation of that hip. She has been less ambulatory and active since that surgery. She had admission in April 2024 for community-acquired pneumonia and return to the [facility] only to come back in May with a hospital-acquired pneumonia and then again on the of that month with hospital-acquired pneumonia being discharged on 12 June. She now presents again with altered mental status with fever and worsening hypoxemia having chronic hypoxic respiratory failure. Her repeated pneumonia is always on the right side and with right sided recurring pneumonia, aspiration needs to be considered though she states full evaluation for aspiration was negative when she resided during her relative in [place], [place]. She may be approaching comfort measures only with the patient being a DNI and previously a DNR which was changed when she was with her relative in [place], [place]. She is not responding to repeated treatments and now has a recurrent pneumonia with productive sputum and severe hypoxemia. She is overweight and may have an element of PASTORA though this is not on her problem list. As stated, the patient presently is a DNI but we did discuss the COLST form no sign or filled out and she may need to have palliative care review DNR/DNI status which would be more appropriate. Review of Systems Narrative: 13 point review of systems otherwise unrevealing or stable. PFSH All Active Problems (Updated 06/20/24 @ 21:34 by Xavier Hagen) Altered mental status (Acute) Recurrent pneumonia (Acute) Sepsis (Acute) Chronic pain (Chronic) Pneumonia (Acute) Sepsis associated hypotension (Acute) Nail dystrophy (Acute) Acute on chronic respiratory failure with hypoxia and hypercapnia (Acute) Respiratory failure (Acute) Chronic hypoxic respiratory failure (Chronic) Displaced intertrochanteric fracture of left femur, subsequent encounter for closed fracture with malunion (Acute) Pain due to internal orthopedic prosthetic device (Acute) Lung disease (Acute) Left hip pain (Acute) Interstitial lung disease (Acute) secondary to chronic aspiration Seasonal allergies (Acute) Skin ulcer (Acute) Community acquired pneumonia (Acute) DNR (do not resuscitate) (Acute) E. 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 fell down and could not get up Morbid obesity (Chronic) Allergic rhinitis (Chronic) Hyperlipidemia (Chronic) Fibromyalgia (Chronic) DJD (degenerative joint disease) (Chronic) Gastroesophageal reflux disease (Chronic) Hiatal hernia (Chronic) Irritable bowel syndrome (Chronic) History of surgery (Chronic) a. S/P open right ankle fracture/dislocation. b. Left knee arthroscopy. c. Right wrist fracture repair. d. T/A as a child. Dehydration, mild (Acute 09/22/14) Housing or economic circumstance (Chronic 09/22/14) a. No heat for 1-1/2 days H/O fall (Chronic) Anemia (Chronic) Alcohol withdrawal delirium (Acute 09/22/14) Rhabdomyolysis (Acute 09/22/14) Ataxia (Chronic) Onychomycosis (Chronic) Depression (Chronic) Medical History Pneumonia Non-sustained ventricular tachycardia Hypotension Intertrochanteric fracture of left femur S/P IM FIXATION 01/01/24 Insomnia Frequent falls Alcohol withdrawal NSIP (nonspecific interstitial pneumonia) Fracture of right inferior pubic ramus Fracture of right superior pubic ramus ACP (advance care planning) Laceration of skin of right forearm Skin ulcer of lower leg Laceration of arm, right, complicated Fractured pelvis T12 compression fracture Acute exacerbation of chronic low back pain Fall Person living alone (09/22/14) Hiatal hernia IBS (irritable bowel syndrome) Hypertension Allergic rhinitis GERD (gastroesophageal reflux disease) DJD (degenerative joint disease) Hyperlipidemia Hypercholesterolemia Fibromyalgia Depression Anemia Alcohol abuse Insomnia Surgical History Tonsillectomy and adenoidectomy Repair fracture right wrist ORIF right ankle Colonoscopy - MAC (11/18/16) Arthroplasty of knee left Family History Mother Dementia Maternal Aunt Diabetes Social History Smoking/Tobacco Use Status: Former Tobacco Use Smoking risk assessment performed?: Yes Alcohol Intake: current Alcohol Intake frequency: 0-2 drinks per day Alcohol type: wine Counseling given: Yes Details: 1-2 bottle of wine/day Drug use: Current Sobriety Substance use type: does not use and marijuana Details: two tokes for sleep Housing: senior care Do you feel safe at home: Yes Do you feel safe in your relationship?: Yes Additional Social history: LIVES AT [facility] Allergies and Home Medications Allergies Allergy/AdvReac Type Severity Reaction Status Date / Time fentanyl AdvReac Nausea Verified 06/20/24 06:05 Home Medications ?Medication ?Instructions ?Recorded ?Confirmed ?Type cholecalciferol (vitamin D3) 10 50 mcg PO DAILY 12/06/13 06/20/24 History mcg (400 unit) tablet (Vitamin D3) ferrous sulfate 325 mg (65 mg 325 mg PO TID 12/06/13 06/20/24 History iron) tablet glucosamine sulfate 2KCl 1,000 mg 500 mg PO BID 12/06/13 06/20/24 History tablet medroxyprogesterone 2.5 mg tablet 2.5 mg PO DAILY 11/18/16 06/20/24 History (Provera) potassium chloride 20 mEq 20 meq PO TID 11/25/16 06/20/24 History tablet,extended release(part/cryst) fluticasone propionate 50 1 spray intranasal BID 09/19/20 06/20/24 History mcg/actuation nasal spray,suspension quetiapine 50 mg tablet 50 mg PO QPM 03/19/22 06/20/24 History trazodone 100 mg tablet 200 mg PO HS 03/19/22 06/20/24 History ginkgo biloba 40 mg tablet 240 mg PO DAILY PRN 10/18/23 06/20/24 History magnesium 250 mg tablet 500 mg PO BID 10/18/23 06/20/24 History vit B complex 100 combo no.2 100 1 tab PO DAILY 10/18/23 06/20/24 History mg tablet,extended release (Balanced B-100 Complex) vitamin A 2,400 mcg capsule 2,400 mcg PO DAILY PRN 10/18/23 06/20/24 History vitamin E (dl, acetate) 45 mg (100 180 mg PO DAILY 10/18/23 06/20/24 History unit) capsule zinc acetate 25 mg (zinc) capsule 100 mg PO BID 10/18/23 06/20/24 History ascorbic acid (vitamin C) 1,000 mg 1 g PO BID 01/23/24 06/20/24 History tablet loratadine 10 mg tablet (Allergy 10 mg PO DAILY 01/23/24 06/20/24 History Relief (loratadine)) duloxetine 60 mg capsule,delayed 60 mg PO BID 03/20/24 06/20/24 History release (Cymbalta) calcium carbonate (Tums Ultra) 2,000 mg PO DAILY PRN 04/09/24 06/20/24 History coffee extract 100 mg-phosphatidyl 1 cap PO DAILY PRN 04/09/24 06/20/24 History serine 100 mg capsule (Neuriva Original) polyethylene glycol 3350 17 17 g PO DAILY 04/09/24 06/20/24 History gram/dose oral powder benzonatate 100 mg capsule 100 mg PO BID 04/29/24 06/20/24 History bisacodyl 10 mg rectal suppository 10 mg RI DAILY PRN 04/29/24 06/20/24 History multivitamin 1 tab PO DAILY 04/29/24 06/20/24 History montelukast 10 mg tablet 10 mg PO DAILY #90 tabs 05/02/24 06/20/24 Rx omeprazole 20 mg capsule,delayed 20 mg PO BID #60 caps 05/13/24 06/20/24 Rx release sucralfate 1 gram tablet 1 g PO TID 05/13/24 06/20/24 History albuterol sulfate 90 mcg/actuation 2 puff inhalation TID 05/17/24 06/20/24 History aerosol inhaler (Ventolin HFA) calcitonin (salmon) 200 1 spray NS DAILY 05/17/24 06/20/24 History unit/actuation nasal spray midodrine 5 mg tablet 5 mg PO TID 05/17/24 06/20/24 History morphine 30 mg tablet,extended 30 mg PO Q8H 05/17/24 06/20/24 History release hydromorphone 2 mg tablet 2 mg PO HS pain 05/18/24 06/20/24 History pregabalin 75 mg capsule 75 mg PO TID 05/18/24 06/20/24 History ipratropium 0.5 mg-albuterol 3 mg 3 ml inhalation TID 05/27/24 06/20/24 History (2.5 mg base)/3 mL nebulization soln morphine concentrate 20 mg/mL oral 10 mg sublingual ONCE 05/27/24 06/20/24 History syringe (FOR ORAL USE ONLY) levofloxacin 750 mg tablet 750 mg PO DAILY #10 tabs 05/30/24 06/20/24 Rx L.acidophil,salivari-Bifido 1 cap PO DAILY 06/06/24 06/20/24 History bifidum-Strep thermoph 175 mg capsule (Acidophilus Probiotic Blend) cyclosporine 0.05 % eye drops in a 1 drp OU BID 06/06/24 06/20/24 History dropperette amoxicillin 875 mg-potassium 1 tab PO BID 06/20/24 06/20/24 History clavulanate 125 mg tablet enoxaparin 40 mg/0.4 mL mg 06/20/24 History subcutaneous syringe pantoprazole 40 mg tablet,delayed 40 mg PO QAM 06/20/24 06/20/24 History release Exam Narrative Exam Narrative: General: Patient appears appropriate for age, in moderate respiratory distress with moist cough wearing oxygen mask. She is alert and oriented x 3. She is conversant with short sentences and has good eye contact. HEENT: Normocephalic, eyes with pupils equal and react to light symmetrically, extraocular movement intact and sclera anicteric. Oropharynx with dry mucosa and fair dentition. Neck: Supple without JVD. Back: Kyphotic without CVA tenderness. Lungs: Coarse rhonchi and crackles over the right more than left lung meredith with marked decreased aeration of the right. Rhonchi with cough. Bronchovesicular breath sound diffusely and slight expiratory wheeze. Heart: Intermittently tachycardic rate and regular rhythm with no murmurs or gallops appreciated. No rubs. Breast: Exam deferred. Abdomen: Obese contour, soft and nontender to palpation with no palpable hepatomegaly. Bowel sounds positive all quadrants. Genitalia/rectal: Exam deferred. Extremities: Left hip has decreased range of motion, muscle atrophy on the left compared to right with slight swelling of the right leg which is nonpitting. Good cap refill. No cyanosis or clubbing. Skin: Pale, warm and dry. Neuro: Cranial nerves II through XII gross intact, no focalizing motor deficits. No tremor. Psych: Normal affect and mood. No abnormal thought processes. Remote and recent memory intact. Results Imaging Imaging Studies: EXAM: XR PORTABLE CHEST AP CLINICAL HISTORY: cough, fever TECHNIQUE: 2D digital imaging was performed. COMPARISON: CR XR CHEST 2V PA LATERAL from 05/17/2024 CR XR PORTABLE CHEST AP POST LINE from 05/27/[address] CHEST/ABD/PEL W from 06/06/2024 FINDINGS: Exam is limited by poor pulmonary inflation. Increased densities are seen primarily in the right lung. There is crowding of pulmonary vessels related to expiratory changes. No gross effusions. Findings roughly stable from prior. Central line no longer seen. LUNGS: Clear. No pleural abnormality seen. HEART: Normal size. AORTA: Normal diameter. BONES: Unremarkable for age. Soft tissues: Unremarkable. IMPRESSION: Limited exam due to poor inspiration. No significant change in right-sided infiltrates. Labs 06/20/24 06:18 06/20/24 06:18 Labs: Laboratory Results - last 24 hr 06/20/24 06/20/24 06/20/24 06:18 06:23 07:55 WBC 10.26 RBC 3.58 L Hgb 10.3 L Hct 33.9 L MCV 95 MCH 28.8 MCHC 30.4 L RDW 15.3 H Plt Count 258 MPV 11.2 H Immature Gran % 0.5 Neutrophils % 77.5 Lymphocytes % 11.1 Monocytes % 8.1 Eosinophils % 2.5 Basophils % 0.3 Nucleated RBC % 0.0 Absolute Neutrophils 7.95 H Absolute Lymphocytes 1.14 L Absolute Monocytes 0.83 H Absolute Eosinophils 0.26 Absolute Basophils 0.03 VBG pH 7.35 VBG pCO2 67 H* VBG pO2 34 VBG HCO3 37 H VBG Total CO2 35 H VBG O2 Saturation 61 VBG Base Excess 11 H Sodium 143 Potassium 4.8 Chloride 102 Carbon Dioxide 36.6 H Anion Gap 4.4 BUN 10 Creatinine 0.6 Est GFR (CKD-EPI 2020) 89.01 Glucose 109 H Calcium 9.0 Magnesium 1.8 Total Bilirubin 0.27 AST 16 ALT 10 L Alkaline Phosphatase 122 H Troponin I 41 44 Total Protein 6.5 Albumin 2.2 L COVID-19 Source Nasopharynx SARS-CoV-2 (PCR) Negative Influenza Type A (PCR) Negative Influenza Type B (PCR) Negative RSV (PCR) Negative Last Vital Signs Pulse 90 06/20/24 07:31 Resp 20 06/20/24 07:31 BP 99/59 L 06/20/24 07:31 Pulse Ox 89 L 06/20/24 07:30 Time Spent Time spent with Patient: >75 minutes Time was spent: preparing to see the patient(eg.review tests), obtaining and/or reviewing separately otained hiistory, ordering medications,tests, procedures, indepentently interpreting results, counseling the patient and care coordination
[2024-06-20] MEDS: Midodrine 2.5 MG TAB 5 MG PO ×2 (09:13→20:28)
--- NOTE | 2024-06-20 10:30 | NUR.NOTE ---
report received from Radha Saeed RN @[phone]
[2024-06-20 10:57] LABS: MRSA PCR Negative (Negative)
[2024-06-20 12:03] LABS: Troponin I 45 ng/L (<or=51)
--- NOTE | 2024-06-20 16:40 | NUR.NOTE ---
1127 this field underwriter reached out to provider Dr. Hagen for direction in regards to patient's. Patient's Bp was stable however no urine output had been observed, and O2 sats were 93-94% on NRB. Message was received on [employer] but no response was received.
[2024-06-20 16:56] LABS: Bilirubin Negative (Negative); Blood Negative (Negative); Clarity Sl Cloudy (Clear); Glucose Negative (Negative); Ketones Negative (Negative); Leukocyte Esterase Trace (Negative); Nitrite Negative (Negative); Urobilinogen 0.2 mg/dL (Up to 0.2); pH 5.5 (5-8)
[2024-06-20 17:36] LABS: RBC 0-2 HPF (0-2)
[2024-06-20 17:37] LABS: Epithelial Cells Rare HPF (Negative); Other Cells Moderate Yeast (Negative)
[2024-06-20 17:38] LABS: Bacteria Few HPF (Negative); C & S Indicated? Yes; Casts 0-2 Hyaline LPF (Negative); Crystals Negative HPF (Negative); Mucus Negative (Negative)
--- NOTE | 2024-06-20 18:28 | W.PC.ACHO ---
Registration Status: Primary Language: Preferred Language: ED Information & Data Chief Complaint AMS/LOC 06/20/24 06:10 Triage Note ANAYELIA, senior care stated 06/20/24 05:58 that pt was hypoxic and unarousable. Pt not responding to questions well . Has a wet cough. Medical / Surgical History (Last Reviewed 06/20/24 @ 08:27 by Xavier Hagen) Pneumonia Non-sustained ventricular tachycardia Hypotension Intertrochanteric fracture of left femur Insomnia Frequent falls Alcohol withdrawal NSIP (nonspecific interstitial pneumonia) Fracture of right inferior pubic ramus Fracture of right superior pubic ramus ACP (advance care planning) Laceration of skin of right forearm Skin ulcer of lower leg Laceration of arm, right, complicated Fractured pelvis T12 compression fracture Acute exacerbation of chronic low back pain Fall Person living alone (09/22/14) Hiatal hernia IBS (irritable bowel syndrome) Hypertension Allergic rhinitis GERD (gastroesophageal reflux disease) DJD (degenerative joint disease) Hyperlipidemia Hypercholesterolemia Fibromyalgia Depression Anemia Alcohol abuse Insomnia (Last Reviewed 06/20/24 @ 08:27 by Xavier Hagen) Tonsillectomy and adenoidectomy Repair fracture right wrist ORIF right ankle Colonoscopy - MAC (11/18/16) Arthroplasty of knee Most Recent Vital Signs Temperature 37.2 C 06/20/24 18:06 Pulse 92 H 06/20/24 18:06 Pulse Rhythm Regular 06/20/24 18:06 Pulse 93 H 06/20/24 17:21 Respiratory Rate 16 06/20/24 18:06 Respiratory Effort Non-Labored 06/20/24 18:06 Respiratory Depth Normal 06/20/24 18:06 Respiratory Pattern Normal 06/20/24 18:06 Blood Pressure 113/60 06/20/24 18:06 Blood Pressure Mean 90 06/20/24 17:15 Blood Pressure Position Sitting 06/20/24 06:55 Pulse Oximetry 95 06/20/24 18:06 Oxygen Delivery Method OxyMask 06/20/24 18:06 Oxygen Flow Rate 3 06/20/24 18:06 Pain Level 0 06/20/24 18:06 Comment Pt requested to have oxymask removed. Nasal canula applied at this time on 3 liters via nc. 06/20/24 18:06 Allergies fentanyl Adverse Reaction (Verified 06/20/24 06:05) Nausea Precautions Isolation Standard precaution 06/20/24 06:03 IV IV Catheter Type [Right Wrist] Peripheral IV IV Catheter Gauge [Right Wrist 20 ] Diagnostics 06/20/24 06/20/24 06/20/24 Range/Units 16:49 09:36 09:27 WBC (4.4-10.8) 10^3/uL RBC (3.93-5.22) 10^6/uL Hgb (11.2-15.7) g/dL Hct (36.0-46.0) % MCV (80-95) fL MCH (27.0-33.0) pg MCHC (32.0-36.0) % RDW (11.7-14.6) % Plt Count (130-400) 10^3/uL MPV (8.0-11.0) fL Immature Gran % % Neutrophils % % Lymphocytes % % Monocytes % % Eosinophils % % Basophils % % Nucleated RBC % (0.0-0.3) % Absolute Neutrophils (1.2-6.7) 10^3/uL Absolute Lymphocytes (1.2-3.4) 10^3/uL Absolute Monocytes (0.1-0.8) 10^3/uL Absolute Eosinophils (0.0-0.7) 10^3/uL Absolute Basophils (0.0-0.2) 10^3/uL VBG pH (7.31-7.41) VBG pCO2 (41-51) mmHg VBG pO2 mmHg VBG HCO3 (23-28) mmol/L VBG Total CO2 (24-29) mmol/L VBG O2 Saturation % VBG Base Excess (-2-3) mmol/L Sodium (136-145) mmol/L Potassium (3.5-5.1) mmol/L Chloride (98-107) mmol/L Carbon Dioxide (21.0-32.0) mmol/L Anion Gap (3-11) mmol/L BUN (7-18) mg/dL Creatinine (0.55-1.02) mg/dL Est GFR (CKD-EPI 2020) (mL/min/1.73m2) Glucose (74-106) mg/dL Calcium (8.5-10.1) mg/dL Magnesium (1.8-2.4) mg/dL Total Bilirubin (0.2-1.0) mg/dL AST (15-37) U/L ALT (14-59) U/L Alkaline Phosphatase (46-116) U/L Troponin I 45 (<or=51) ng/L Total Protein (6.4-8.2) g/dL Albumin (3.4-5.0) g/dL Urine Color Yellow (Yellow) Urine Clarity Sl Cloudy (Clear) Urine pH 5.5 (5-8) Ur Specific [place] 1.020 (1.005-1.025) Urine Protein Negative (Neg-Trace) mg/dL Urine Ketones Negative (Negative) mg/dL Urine Blood Negative (Negative) Urine Nitrite Negative (Negative) Urine Bilirubin Negative (Negative) Urine Urobilinogen 0.2 (Up to 0.2) mg/dL Ur Leukocyte Esterase Trace H (Negative) Urine RBC 0-2 (0-2) HPF Urine WBC 10-20 H (0-5) HPF Ur Epithelial Cells Rare (Negative) HPF Urine Crystals Negative (Negative) HPF Urine Bacteria Few (Negative) HPF Urine Casts 0-2 Hyaline (Negative) LPF Urine Mucus Negative (Negative) Urine Other Moderate Yeast (Negative) Ur Culture Indicated? Yes Urine Glucose Negative (Negative) mg/dL COVID-19 Source SARS-CoV-2 (PCR) (Negative) Influenza Type A (PCR) (Negative) Influenza Type B (PCR) (Negative) RSV (PCR) (Negative) MRSA (TEM-PCR) Negative (Negative) 06/20/24 06/20/24 06/20/24 Range/Units 07:55 06:23 06:18 WBC 10.26 (4.4-10.8) 10^3/uL RBC 3.58 L (3.93-5.22) 10^6/uL Hgb 10.3 L (11.2-15.7) g/dL Hct 33.9 L (36.0-46.0) % MCV 95 (80-95) fL MCH 28.8 (27.0-33.0) pg MCHC 30.4 L (32.0-36.0) % RDW 15.3 H (11.7-14.6) % Plt Count 258 (130-400) 10^3/uL MPV 11.2 H (8.0-11.0) fL Immature Gran % 0.5 % Neutrophils % 77.5 % Lymphocytes % 11.1 % Monocytes % 8.1 % Eosinophils % 2.5 % Basophils % 0.3 % Nucleated RBC % 0.0 (0.0-0.3) % Absolute Neutrophils 7.95 H (1.2-6.7) 10^3/uL Absolute Lymphocytes 1.14 L (1.2-3.4) 10^3/uL Absolute Monocytes 0.83 H (0.1-0.8) 10^3/uL Absolute Eosinophils 0.26 (0.0-0.7) 10^3/uL Absolute Basophils 0.03 (0.0-0.2) 10^3/uL VBG pH 7.35 (7.31-7.41) VBG pCO2 67 H* (41-51) mmHg VBG pO2 34 mmHg VBG HCO3 37 H (23-28) mmol/L VBG Total CO2 35 H (24-29) mmol/L VBG O2 Saturation 61 % VBG Base Excess 11 H (-2-3) mmol/L Sodium 143 (136-145) mmol/L Potassium 4.8 (3.5-5.1) mmol/L Chloride 102 (98-107) mmol/L Carbon Dioxide 36.6 H (21.0-32.0) mmol/L Anion Gap 4.4 (3-11) mmol/L BUN 10 (7-18) mg/dL Creatinine 0.6 (0.55-1.02) mg/dL Est GFR (CKD-EPI 2020) 89.01 (mL/min/1.73m2) Glucose 109 H (74-106) mg/dL Calcium 9.0 (8.5-10.1) mg/dL Magnesium 1.8 (1.8-2.4) mg/dL Total Bilirubin 0.27 (0.2-1.0) mg/dL AST 16 (15-37) U/L ALT 10 L (14-59) U/L Alkaline Phosphatase 122 H (46-116) U/L Troponin I 44 41 (<or=51) ng/L Total Protein 6.5 (6.4-8.2) g/dL Albumin 2.2 L (3.4-5.0) g/dL Urine Color (Yellow) Urine Clarity (Clear) Urine pH (5-8) Ur Specific [place] (1.005-1.025) Urine Protein (Neg-Trace) mg/dL Urine Ketones (Negative) mg/dL Urine Blood (Negative) Urine Nitrite (Negative) Urine Bilirubin (Negative) Urine Urobilinogen (Up to 0.2) mg/dL Ur Leukocyte Esterase (Negative) Urine RBC (0-2) HPF Urine WBC (0-5) HPF Ur Epithelial Cells (Negative) HPF Urine Crystals (Negative) HPF Urine Bacteria (Negative) HPF Urine Casts (Negative) LPF Urine Mucus (Negative) Urine Other (Negative) Ur Culture Indicated? Urine Glucose (Negative) mg/dL COVID-19 Source Nasopharynx SARS-CoV-2 (PCR) Negative (Negative) Influenza Type A (PCR) Negative (Negative) Influenza Type B (PCR) Negative (Negative) RSV (PCR) Negative (Negative) MRSA (TEM-PCR) (Negative) 06/20/24 16:49 Urine Culture - Pending Urine - Reflex from Ua 06/20/24 08:14 Sputum Culture - Pending Sputum Gram Stain - Final 06/20/24 06:18 Blood Culture - Pending Blood Intake and Output - 24 Hour Total 06/20/24 05:44 thru 06/20/24 18:06 Intake Total 600 Balance 600 Weight 83.3 kg Intake: IV 600 Falls Risk Assessment History of Falls Previous History 06/20/24 18:06 Contributing Factors Confusion,Unstable, 06/20/24 18:06 Impairments,Incontinence, Medications Ambulatory Aids Uses ambulatory device + 06/20/24 06:09 Tubes/Lines With any additional score 06/20/24 18:06 Gait Evaluation W/any additional score 06/20/24 18:06 Cognition Cognitive impairment 06/20/24 18:06 Fall Total Score 85 06/20/24 18:06 Level of Risk Maximum Risk 06/20/24 18:06 Problems (Last Reviewed 06/20/24 @ 08:27 by Xavier Hagen) Altered mental status (Acute) Recurrent pneumonia (Acute) Chronic pain (Chronic) Chronic hypoxic respiratory failure (Chronic) Hyperlipidemia (Chronic) Gastroesophageal reflux disease (Chronic) Depression (Chronic) Notes 06/20/24 16:40 Nursing Notes by Lenora Leung [id number] this residential mortgage underwriter reached out to provider Dr. Hagen for direction in regards to patient's. Patient's Bp was stable however no urine output had been observed, and O2 sats were 93-94% on NRB. Message was received on [employer] but no response was received. Initialized on 06/20/24 16:40 - END OF NOTE 06/20/24 10:30 Nursing Notes by Lenora Leung report received from Radha Saeed RN @1000 Initialized on 06/20/24 10:30 - END OF NOTE v v v v v v v v v Sending and/or Receiving Nurses: Please use comment section below to note any information pertinent to the patient hand-off not included above. Information / Comments: Report received from: Lenora Leung RN reports taking by Susanna Flores RN
[2024-06-20] MEDS: Enoxaparin 40 MG/0.4 ML SYR SC (18:38)
[2024-06-20] MEDS: Ferrous Sulfate 325 MG TAB PO ×2 (18:39→20:29)
--- NOTE | 2024-06-20 19:22 | W.PC.ACHO ---
Registration Status: Primary Language: Preferred Language: ED Information & Data Chief Complaint AMS/LOC 06/20/24 06:10 Triage Note ANAYELIA, [facility] stated 06/20/24 05:58 that pt was hypoxic and unarousable. Pt not responding to questions well . Has a wet cough. Medical / Surgical History (Last Reviewed 06/20/24 @ 08:27 by Xavier Hagen) Pneumonia Non-sustained ventricular tachycardia Hypotension Intertrochanteric fracture of left femur Insomnia Frequent falls Alcohol withdrawal NSIP (nonspecific interstitial pneumonia) Fracture of right inferior pubic ramus Fracture of right superior pubic ramus ACP (advance care planning) Laceration of skin of right forearm Skin ulcer of lower leg Laceration of arm, right, complicated Fractured pelvis T12 compression fracture Acute exacerbation of chronic low back pain Fall Person living alone (09/22/14) Hiatal hernia IBS (irritable bowel syndrome) Hypertension Allergic rhinitis GERD (gastroesophageal reflux disease) DJD (degenerative joint disease) Hyperlipidemia Hypercholesterolemia Fibromyalgia Depression Anemia Alcohol abuse Insomnia (Last Reviewed 06/20/24 @ 08:27 by Xavier Hagen) Tonsillectomy and adenoidectomy Repair fracture right wrist ORIF right ankle Colonoscopy - MAC (11/18/16) Arthroplasty of knee Most Recent Vital Signs Temperature 37.2 C 06/20/24 18:06 Pulse 92 H 06/20/24 18:06 Pulse Rhythm Regular 06/20/24 18:06 Pulse 93 H 06/20/24 17:21 Respiratory Rate 16 06/20/24 18:06 Respiratory Effort Non-Labored 06/20/24 18:06 Respiratory Depth Normal 06/20/24 18:06 Respiratory Pattern Normal 06/20/24 18:06 Blood Pressure 113/60 06/20/24 18:06 Blood Pressure Mean 90 06/20/24 17:15 Blood Pressure Position Sitting 06/20/24 06:55 Pulse Oximetry 94 06/20/24 19:21 Oxygen Delivery Method Nasal Cannula 06/20/24 19:21 Oxygen Flow Rate 1 06/20/24 19:21 Pain Level 0 06/20/24 18:37 Comment turned down to 1L NC 06/20/24 18:37 Allergies fentanyl Adverse Reaction (Verified 06/20/24 06:05) Nausea Precautions Isolation Standard precaution 06/20/24 06:03 Active Medications Generic Name Dose Route Start Last Admin Trade Name Freq PRN Reason Stop Dose Admin Albuterol/Ipratropium 3 ml 06/20/24 18:02 06/20/24 18:31 Albuterol/Ipratropium 3 Ml Upd Vial IH Not Given TID MARI Enoxaparin Sodium 40 mg 06/20/24 18:02 06/20/24 18:38 Enoxaparin 40 Mg/0.4 Ml Syr SC 40 mg Q24H MARI Administration Ferrous Sulfate 325 mg 06/20/24 18:02 06/20/24 18:39 Ferrous Sulfate 325 Mg Tab PO 325 mg TID MARI Administration Morphine Sulfate 30 mg 06/20/24 18:02 06/20/24 18:39 Morphine Cr 30 Mg Tabcr PO 30 mg Q8H MARI Administration IV IV Catheter Type [Right Wrist] Peripheral IV IV Catheter Gauge [Right Wrist 20 ] Diagnostics 06/20/24 06/20/24 06/20/24 Range/Units 16:49 09:36 09:27 WBC (4.4-10.8) 10^3/uL RBC (3.93-5.22) 10^6/uL Hgb (11.2-15.7) g/dL Hct (36.0-46.0) % MCV (80-95) fL MCH (27.0-33.0) pg MCHC (32.0-36.0) % RDW (11.7-14.6) % Plt Count (130-400) 10^3/uL MPV (8.0-11.0) fL Immature Gran % % Neutrophils % % Lymphocytes % % Monocytes % % Eosinophils % % Basophils % % Nucleated RBC % (0.0-0.3) % Absolute Neutrophils (1.2-6.7) 10^3/uL Absolute Lymphocytes (1.2-3.4) 10^3/uL Absolute Monocytes (0.1-0.8) 10^3/uL Absolute Eosinophils (0.0-0.7) 10^3/uL Absolute Basophils (0.0-0.2) 10^3/uL VBG pH (7.31-7.41) VBG pCO2 (41-51) mmHg VBG pO2 mmHg VBG HCO3 (23-28) mmol/L VBG Total CO2 (24-29) mmol/L VBG O2 Saturation % VBG Base Excess (-2-3) mmol/L Sodium (136-145) mmol/L Potassium (3.5-5.1) mmol/L Chloride (98-107) mmol/L Carbon Dioxide (21.0-32.0) mmol/L Anion Gap (3-11) mmol/L BUN (7-18) mg/dL Creatinine (0.55-1.02) mg/dL Est GFR (CKD-EPI 2020) (mL/min/1.73m2) Glucose (74-106) mg/dL Calcium (8.5-10.1) mg/dL Magnesium (1.8-2.4) mg/dL Total Bilirubin (0.2-1.0) mg/dL AST (15-37) U/L ALT (14-59) U/L Alkaline Phosphatase (46-116) U/L Troponin I 45 (<or=51) ng/L Total Protein (6.4-8.2) g/dL Albumin (3.4-5.0) g/dL Urine Color Yellow (Yellow) Urine Clarity Sl Cloudy (Clear) Urine pH 5.5 (5-8) Ur Specific [place] 1.020 (1.005-1.025) Urine Protein Negative (Neg-Trace) mg/dL Urine Ketones Negative (Negative) mg/dL Urine Blood Negative (Negative) Urine Nitrite Negative (Negative) Urine Bilirubin Negative (Negative) Urine Urobilinogen 0.2 (Up to 0.2) mg/dL Ur Leukocyte Esterase Trace H (Negative) Urine RBC 0-2 (0-2) HPF Urine WBC 10-20 H (0-5) HPF Ur Epithelial Cells Rare (Negative) HPF Urine Crystals Negative (Negative) HPF Urine Bacteria Few (Negative) HPF Urine Casts 0-2 Hyaline (Negative) LPF Urine Mucus Negative (Negative) Urine Other Moderate Yeast (Negative) Ur Culture Indicated? Yes Urine Glucose Negative (Negative) mg/dL COVID-19 Source SARS-CoV-2 (PCR) (Negative) Influenza Type A (PCR) (Negative) Influenza Type B (PCR) (Negative) RSV (PCR) (Negative) MRSA (TEM-PCR) Negative (Negative) 06/20/24 06/20/24 06/20/24 Range/Units 07:55 06:23 06:18 WBC 10.26 (4.4-10.8) 10^3/uL RBC 3.58 L (3.93-5.22) 10^6/uL Hgb 10.3 L (11.2-15.7) g/dL Hct 33.9 L (36.0-46.0) % MCV 95 (80-95) fL MCH 28.8 (27.0-33.0) pg MCHC 30.4 L (32.0-36.0) % RDW 15.3 H (11.7-14.6) % Plt Count 258 (130-400) 10^3/uL MPV 11.2 H (8.0-11.0) fL Immature Gran % 0.5 % Neutrophils % 77.5 % Lymphocytes % 11.1 % Monocytes % 8.1 % Eosinophils % 2.5 % Basophils % 0.3 % Nucleated RBC % 0.0 (0.0-0.3) % Absolute Neutrophils 7.95 H (1.2-6.7) 10^3/uL Absolute Lymphocytes 1.14 L (1.2-3.4) 10^3/uL Absolute Monocytes 0.83 H (0.1-0.8) 10^3/uL Absolute Eosinophils 0.26 (0.0-0.7) 10^3/uL Absolute Basophils 0.03 (0.0-0.2) 10^3/uL VBG pH 7.35 (7.31-7.41) VBG pCO2 67 H* (41-51) mmHg VBG pO2 34 mmHg VBG HCO3 37 H (23-28) mmol/L VBG Total CO2 35 H (24-29) mmol/L VBG O2 Saturation 61 % VBG Base Excess 11 H (-2-3) mmol/L Sodium 143 (136-145) mmol/L Potassium 4.8 (3.5-5.1) mmol/L Chloride 102 (98-107) mmol/L Carbon Dioxide 36.6 H (21.0-32.0) mmol/L Anion Gap 4.4 (3-11) mmol/L BUN 10 (7-18) mg/dL Creatinine 0.6 (0.55-1.02) mg/dL Est GFR (CKD-EPI 2020) 89.01 (mL/min/1.73m2) Glucose 109 H (74-106) mg/dL Calcium 9.0 (8.5-10.1) mg/dL Magnesium 1.8 (1.8-2.4) mg/dL Total Bilirubin 0.27 (0.2-1.0) mg/dL AST 16 (15-37) U/L ALT 10 L (14-59) U/L Alkaline Phosphatase 122 H (46-116) U/L Troponin I 44 41 (<or=51) ng/L Total Protein 6.5 (6.4-8.2) g/dL Albumin 2.2 L (3.4-5.0) g/dL Urine Color (Yellow) Urine Clarity (Clear) Urine pH (5-8) Ur Specific [place] (1.005-1.025) Urine Protein (Neg-Trace) mg/dL Urine Ketones (Negative) mg/dL Urine Blood (Negative) Urine Nitrite (Negative) Urine Bilirubin (Negative) Urine Urobilinogen (Up to 0.2) mg/dL Ur Leukocyte Esterase (Negative) Urine RBC (0-2) HPF Urine WBC (0-5) HPF Ur Epithelial Cells (Negative) HPF Urine Crystals (Negative) HPF Urine Bacteria (Negative) HPF Urine Casts (Negative) LPF Urine Mucus (Negative) Urine Other (Negative) Ur Culture Indicated? Urine Glucose (Negative) mg/dL COVID-19 Source Nasopharynx SARS-CoV-2 (PCR) Negative (Negative) Influenza Type A (PCR) Negative (Negative) Influenza Type B (PCR) Negative (Negative) RSV (PCR) Negative (Negative) MRSA (TEM-PCR) (Negative) 06/20/24 16:49 Urine Culture - Pending Urine - Reflex from Ua 06/20/24 08:14 Sputum Culture - Pending Sputum Gram Stain - Final 06/20/24 06:18 Blood Culture - Pending Blood Intake and Output - 24 Hour Total 06/20/24 05:44 thru 06/20/24 18:06 Intake Total 600 Balance 600 Weight 83.3 kg Intake: IV 600 Falls Risk Assessment History of Falls Previous History 06/20/24 18:06 Contributing Factors Confusion,Unstable, 06/20/24 18:06 Impairments,Incontinence, Medications Ambulatory Aids Uses ambulatory device + 06/20/24 06:09 Tubes/Lines With any additional score 06/20/24 18:06 Gait Evaluation W/any additional score 06/20/24 18:06 Cognition Cognitive impairment 06/20/24 18:06 Fall Total Score 85 06/20/24 18:06 Level of Risk Maximum Risk 06/20/24 18:06 Problems (Last Reviewed 06/20/24 @ 08:27 by Xavier Hagen) Altered mental status (Acute) Recurrent pneumonia (Acute) Chronic pain (Chronic) Chronic hypoxic respiratory failure (Chronic) Hyperlipidemia (Chronic) Gastroesophageal reflux disease (Chronic) Depression (Chronic) Notes 06/20/24 16:40 Nursing Notes by Lenora Leung [id number] this teletypewriter operator reached out to provider Dr. Hagen for direction in regards to patient's. Patient's Bp was stable however no urine output had been observed, and O2 sats were 93-94% on NRB. Message was received on [employer] but no response was received. Initialized on 06/20/24 16:40 - END OF NOTE 06/20/24 10:30 Nursing Notes by Lenora Leung report received from Radha Saeed RN @1000 Initialized on 06/20/24 10:30 - END OF NOTE v v v v v v v v v Sending and/or Receiving Nurses: Please use comment section below to note any information pertinent to the patient hand-off not included above. Information / Comments: report provided to MYRTLE Rivas Report received from:
[2024-06-20] MEDS: Albuterol/Ipratropium 3 ML UPD VIAL IH (20:22)
[2024-06-20] MEDS: Ascorbic Acid 500 MG TAB 1000 MG PO (20:27)
[2024-06-20] MEDS: Normal Saline Flush 10 ML SYR IVP (20:27)
[2024-06-20] MEDS: traZODone 100 MG TAB 200 MG PO (20:27)
[2024-06-20] MEDS: Pregabalin 25 MG CAP 75 MG PO (20:28)
[2024-06-20] MEDS: Sucralfate 1 GM TAB PO (20:28)
[2024-06-20] MEDS: QUEtiapine 50 MG TAB PO (20:28)
[2024-06-20] MEDS: Omeprazole 20 MG CAPCR PO (20:29)
[2024-06-20] MEDS: DULoxetine 30 MG CAP 60 MG PO (20:29)
[2024-06-20] MEDS: Benzonatate 100 MG CAP PO (20:29)
[2024-06-20] MEDS: Fluticasone NASAL SPRAY 16 GM BTL NS (21:03)
[2024-06-21] VITALS (10 sets, daily range): BP systolic 102–115; BP diastolic 57–73; PULSE 72–89; RESP 8–20; TEMP 36.4–36.7; O2SAT 92–98
[2024-06-21] MEDS: Benzocaine/Menthol LOZG 15/BOX 1 EACH SUC ×4 (01:16→21:29)
[2024-06-21 07:07] LABS: HCT 27.8 % (36.0-46.0); HGB 8.7 g/dL (11.2-15.7); MCH 28.5 pg (27.0-33.0); MCHC 31.3 % (32.0-36.0); MCV 91 fL (80-95); MPV 11.4 fL (8.0-11.0); Platelet Count 239 10^3/uL (130-400); RBC 3.05 10^6/uL (3.93-5.22); RDW 15.3 % (11.7-14.6); RDW-SD 50.9 fL; WBC 8.06 10^3/uL (4.4-10.8)
[2024-06-21 07:25] LABS: Vancomycin, Random 16.8 ug/mL
[2024-06-21 07:27] LABS: ALT 10 U/L (14-59); AST 13 U/L (15-37); Alkaline Phosphatase 95 U/L (46-116); Anion Gap 3.5 mmol/L (3-11); BUN 8 mg/dL (7-18); Bilirubin, Total 0.38 mg/dL (0.2-1.0); CO2 36.5 mmol/L (21.0-32.0); CREATININE 0.6 mg/dL (0.55-1.02); Calcium 8.7 mg/dL (8.5-10.1); Chloride 105 mmol/L (98-107); Estimated GFR 89.01 (mL/min/1.73m2); Glucose 85 mg/dL (74-106); Magnesium 1.7 mg/dL (1.8-2.4); Potassium 3.4 mmol/L (3.5-5.1); Sodium 145 mmol/L (136-145); Total Protein 5.5 g/dL (6.4-8.2)
[2024-06-21] MEDS: Albuterol/Ipratropium 3 ML UPD VIAL UPD ×4 (08:30→21:23)
[2024-06-21] MEDS: Ascorbic Acid 500 MG TAB 1000 MG PO ×2 (09:38→21:25)
[2024-06-21] MEDS: Calcitonin-Salmon, Synthetic 3.7 ML BTL NS (09:39)
[2024-06-21] MEDS: Benzonatate 100 MG CAP PO ×2 (09:39→21:25)
[2024-06-21] MEDS: Calcium Carbonate *TUMS* 500 MG CHEW 2000 MG CH (09:40)
[2024-06-21] MEDS: Ferrous Sulfate 325 MG TAB PO ×3 (09:44→21:25)
[2024-06-21] MEDS: DULoxetine 30 MG CAP 60 MG PO ×2 (09:44→21:25)
[2024-06-21] MEDS: Fluticasone NASAL SPRAY 16 GM BTL NS ×2 (09:45→21:28)
[2024-06-21] MEDS: Loratidine 10 MG TAB PO (09:48)
[2024-06-21] MEDS: Montelukast 10 MG TAB PO (09:49)
[2024-06-21] MEDS: Midodrine 2.5 MG TAB 5 MG PO ×3 (09:49→21:25)
[2024-06-21] MEDS: Nystatin 500000 UNITS/5 ML SUSP 5ML CUP PO ×3 (09:50→21:23)
[2024-06-21] MEDS: Omeprazole 20 MG CAPCR PO ×2 (09:50→21:26)
[2024-06-21] MEDS: Normal Saline Flush 10 ML SYR IVP ×3 (09:50→21:24)
[2024-06-21] MEDS: Potassium Chloride 20 MEQ TABCR PO ×3 (09:53→21:25)
[2024-06-21] MEDS: Pregabalin 25 MG CAP 75 MG PO ×3 (09:53→21:24)
[2024-06-21] MEDS: Sucralfate 1 GM TAB PO ×3 (09:54→21:25)
[2024-06-21] MEDS: Multivitamin TAB 1 TAB PO (09:55)
--- NOTE | 2024-06-21 11:55 | PDOC.CMIN ---
Date of service: 06/21/24 Time of Service: 11:55 Care Management Initial Assmt Initial Assessment Reason for Hospitalization: pneumonia Functional Status/Living Situation Patient Presentation: Elvi was sitting up in bed when CM met with her. When asked how she is feeling, she answered not very good. Elvi fractured her hip in December and has been staying at the [facility] since. She has had several readmissions to the hospital during this period and, in general, is not doing well. She is scheduled to have a visit from the Palliative team either today or Monday. Elvi requires assistance with ADLs and is non-weigthbearing. She informed CM that she requires the use of a kristopher lift to get into her wheelchair. Elvi is not and has no children. She has one sister that she is close to, Marzena Pena, who lives in [place]. Town of Residence: [facility] Resides with: Other (SNF) Significant Other/Family: Out of area Employment Status: Retired Instrumental Activities of Daily Living (ADLs): Requires support Medications Medication Management: No Issues/Barriers identified Physical Functioning/Mobility Assistive Device: Wheelchair SNF Advance Directives Advance Directives: Do you have an Advance Directive: Y 04/11/16 11:50 AD On File at [facility]: Y 11/12/12 15:45 Date Asked 06/06/24 06/06/24 13:16 AD Date Reviewed 05/27/24 05/27/24 09:04 COLST On File at [facility] Yes 02/15/24 11:50 COLST Date Scanned 08/03/23 02/15/24 11:50 Code Status Resuscitation Status DNI Portal Pt does not currently have a portal and education provided: No Insurance Coverage/Financial Issues Insurance: medicare medicaid Care Team Visit Care Team Role Provider Type Iesha Leary Primary Care Provider NON-[facility] STAFF PHYSICIAN Chandler Dickinson MD Emergency Provider [facility] STAFF PHYSICIAN Xavier Hagen Admit Provider NON-[facility] STAFF PHYSICIAN Attending Provider Discharge Potential Discharge Needs: Other (return to SNF) Anticipated Barriers to Discharge: Medical Status Patient/Family Education Needs: Review discharge instructions, discuss Ask Me Three Transportation: RCT Plan: Anticipate Elvi will return to the [facility] when medically cleared. She will follow up with the facility providers and plan of care and transport via RCT coordinated by CM. CM will follow and continue to support discharge needs. [facility] All Active Problems (Updated 06/20/24 @ 21:34 by Xavier Hagen) Altered mental status (Acute) Recurrent pneumonia (Acute) Sepsis (Acute) Chronic pain (Chronic) Pneumonia (Acute) Sepsis associated hypotension (Acute) Nail dystrophy (Acute) Acute on chronic respiratory failure with hypoxia and hypercapnia (Acute) Respiratory failure (Acute) Chronic hypoxic respiratory failure (Chronic) Displaced intertrochanteric fracture of left femur, subsequent encounter for closed fracture with malunion (Acute) Pain due to internal orthopedic prosthetic device (Acute) Lung disease (Acute) Left hip pain (Acute) Interstitial lung disease (Acute) secondary to chronic aspiration Seasonal allergies (Acute) Skin ulcer (Acute) Community acquired pneumonia (Acute) DNR (do not resuscitate) (Acute) E. 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 fell down and could not get up Morbid obesity (Chronic) Allergic rhinitis (Chronic) Hyperlipidemia (Chronic) Fibromyalgia (Chronic) DJD (degenerative joint disease) (Chronic) Gastroesophageal reflux disease (Chronic) Hiatal hernia (Chronic) Irritable bowel syndrome (Chronic) History of surgery (Chronic) a. S/P open right ankle fracture/dislocation. b. Left knee arthroscopy. c. Right wrist fracture repair. d. T/A as a child. Dehydration, mild (Acute 09/22/14) Housing or economic circumstance (Chronic 09/22/14) a. No heat for 1-1/2 days H/O fall (Chronic) Anemia (Chronic) Alcohol withdrawal delirium (Acute 09/22/14) Rhabdomyolysis (Acute 09/22/14) Ataxia (Chronic) Onychomycosis (Chronic) Depression (Chronic) Medical History Pneumonia Non-sustained ventricular tachycardia Hypotension Intertrochanteric fracture of left femur S/P IM FIXATION 01/01/24 Insomnia Frequent falls Alcohol withdrawal NSIP (nonspecific interstitial pneumonia) Fracture of right inferior pubic ramus Fracture of right superior pubic ramus ACP (advance care planning) Laceration of skin of right forearm Skin ulcer of lower leg Laceration of arm, right, complicated Fractured pelvis T12 compression fracture Acute exacerbation of chronic low back pain Fall Person living alone (09/22/14) Hiatal hernia IBS (irritable bowel syndrome) Hypertension Allergic rhinitis GERD (gastroesophageal reflux disease) DJD (degenerative joint disease) Hyperlipidemia Hypercholesterolemia Fibromyalgia Depression Anemia Alcohol abuse Insomnia Surgical History Tonsillectomy and adenoidectomy Repair fracture right wrist ORIF right ankle Colonoscopy - MAC (11/18/16) Arthroplasty of knee left Family History Mother Dementia Maternal Aunt Diabetes Social History Smoking/Tobacco Use Status: Former Tobacco Use Smoking risk assessment performed?: Yes Alcohol Intake: current Alcohol Intake frequency: 0-2 drinks per day Alcohol type: wine Counseling given: Yes Details: 1-2 bottle of wine/day Drug use: Current Sobriety Substance use type: does not use and marijuana Details: two tokes for sleep Housing: long term Do you feel safe at home: Yes Do you feel safe in your relationship?: Yes Additional Social history: L[facility] AT [facility](Care Management) Screening Will the Patient Participate in the Screening?: Yes Do you worry about having a steady place to live?: no In the past 12 months, have you had to go without electric, gas, oil or water in your home?: no Have you or anyone in your house had to go without enough food to eat?: no Has lack of transportation kept you from medical appointments or from doing things needed for daily living?: no Has anyone in your support network made you feel unsafe for any reason?: no Health Related Social Needs Health related social needs details: Pt is a resident at the [facility] in [place].
[2024-06-21] MEDS: Acetaminophen 325 MG TAB PO ×2 (12:50→21:25)
[2024-06-21] MEDS: Magnesium Gluconate 500 MG TAB PO ×2 (12:50→21:25)
[2024-06-21] MEDS: VANCOMYCIN/WATER (PEG) 1 GM/200 ML BAG IVPB (14:25)
--- NOTE | 2024-06-21 14:26 | PHA.REVIEW2 ---
Pharmacy Admission Review Admission Clinical Review Admission Pharmacy Review: Altered mental status (Acute) Recurrent pneumonia (Acute) fentanyl Adverse Reaction (Verified 06/20/24 06:05) Nausea Resuscitation Status DNI Height 5 ft 8 in Weight 88.4 kg Pharmacy Admission Review Renal Dosing Renal Dosing: BUN 8 mg/dL (7-18) 06/21/24 06:30 Creatinine 0.6 mg/dL (0.55-1.02) 06/21/24 06:30 Medications needing adjustments: Reviewed (CrCl 49.59 mL/min) List of meds needing interventions: Current medications are okay Anticoagulation Anticoagulation: Hgb 8.7 g/dL (11.2-15.7) L 06/21/24 06:30 Hct 27.8 % (36.0-46.0) L 06/21/24 06:30 Plt Count 239 10^3/uL (130-400) 06/21/24 06:30 Creatinine 0.6 mg/dL (0.55-1.02) 06/21/24 06:30 DVT Prophylaxis: Reviewed (hgb decreased from 10.3) Medications: Enoxaparin (40mg daily) Opiate Usage Evaluate Pain Scale/Pains Meds: Reviewed (has order for morphine CR 30mg q8h) Scheduled Bowel Reg ordered if on Opiates?: No (PRN docusate/Miralax) Relevant Labs Relevant Labs: Sodium 145 mmol/L (136-145) 06/21/24 06:30 Potassium 3.4 mmol/L (3.5-5.1) L D 06/21/24 06:30 Chloride 105 mmol/L (98-107) 06/21/24 06:30 Magnesium 1.7 mg/dL (1.8-2.4) L 06/21/24 06:30 Electrolytes, C-Reactive P, ESR: Reviewed (K 3.4, Mg 1.7 - has orders for PO Mg and K) Cardiac Review Cardiac Review: Troponin I 45 ng/L (<or=51) 06/20/24 09:36 BP, HR, EF%: Reviewed (HR and BP WNL) List meds needing interventions: has order for midodrine 5mg TID QTc Review QTc: Reviewed (439 from 06/20/24) IV to PO Switch IV Medications: Reviewed (meropenem and vancomycin) Home Meds Home Med List reviewed: Reviewed Relevent Home Meds Not ordered & why?: bisacodyl (PRN), Neuriva, ginkgo biloba, hydromorphone Current Meds Current Medication Order Review: Intervened Comments: Added 2nd PRN to albuterol order Changed vitamin D3 order from 38839 units daily to 2000 units daily based on home med list Changed omeprazole timing from BID@ to BID@ per pharmacy protocol Changed non-formulary orders to patients own: vitamin A, glucosamine, zinc acetate and vitamin E - told nursing if patient wants these she will have to have them brought in Pharmacy Antibiotic Review Relevant Labs: WBC 8.06 10^3/uL (4.4-10.8) 06/21/24 06:30 Temperature 36.7 C Temperature 36.5 C Microbiology 06/20/24 16:49 Urine Culture - Preliminary Urine - Reflex from Ua Gram Positive Cristina,Mixed Gram Negative Luis 06/20/24 08:14 Sputum Culture - Preliminary Sputum Gram Negative Luis Normal Cristina Gram Stain - Final 06/20/24 06:18 Blood Culture - Preliminary Blood NO GROWTH 24 HOURS Pharmacy Antibiotic Activity: C/S review and Reviewed, no change Comments: Patient is on meropenem and vancomycin, day 1, for aspiration pneumonia. Vancomycin level this morning was 16.8 today at 0630. Kept dose the same at 1g q12h with predicted AUC of 532 and trough of 17. Will order another level if there are any changes in kidney function. Urine and sputum cultures positive, blood culture showing no growth.
--- NOTE | 2024-06-21 16:57 | CHAPLAIN ---
I had a brief visit with Elvi. We know each other from previous admissions. She has been at the [facility] since her hip surgery in December. She looks more tired and than she usually does. She is usually not interested in printer floor covering assistant visits, but I reminded her that I'm here if she'd like some company at any point.
[2024-06-21] MEDS: Enoxaparin 40 MG/0.4 ML SYR SC (18:06)
--- NOTE | 2024-06-21 19:09 | W.PM.PROGNOT ---
Date of Service Date of service: 06/21/24 Time of Service: 19:09 Assessment and Plan Assessment and plan (1) Recurrent pneumonia: Status: Acute Assessment and plan: She has had recurrent pneumonias with a suspicion that there may be aspiration. Apparently she had a swallow study in [place] that did not demonstrate aspiration. Nonetheless she does get recurrent pneumonia particularly on the right side. She is on meropenem and vancomycin. She does appear to be getting better but still has an O2 requirement. Palliative care saw her today. (2) Altered mental status: Status: Acute Assessment and plan: Overall mentation appears improved. Qualifiers: Altered mental status type: delirium Qualified Code(s): R41.0 - Disorientation, unspecified (3) Sepsis: Status: Acute Assessment and plan: Sepsis was considered on admission she is now stabilized on antibiotics. (4) Displaced intertrochanteric fracture of left femur, subsequent encounter for closed fracture with malunion: Status: Acute Assessment and plan: The left hip repair apparently needs a revision but it is hampered by her ongoing respiratory difficulties. Will ask physical therapy to try to get up and move around a little more. She is going to be difficult to rehab if she does not get moving. Subjective Subjective Interval history since last seen: Patient continues to have respiratory distress intermittently. Today we tried weaning her O2 down and she got acutely short of breath. She recovered rapidly once O2 was resumed and was able to maintain on just 1 L/min. She appears to be very sensitive to oxygen. She continues to complain of this left hip pain. She states she needs it to be revised but cannot because of her ongoing oxygen problems. She has not been getting up. Will ask physical therapy to see her. Exam Narrative Exam Narrative: She appears somewhat deconditioned and disheveled. She was able to answer questions appropriately. I saw her just after. Her dyspnea where she had largely recovered. Her lung exam showed a few scattered rhonchi but otherwise generally clear. Heart sounds were regular. Abdomen was obese but nontender. The lower extremity showed no significant edema. Objective Last Vital Signs Temp 36.4 C L 06/21/24 15:15 Pulse 89 06/21/24 15:15 Resp 16 06/21/24 16:12 BP 102/57 L 06/21/24 15:15 Pulse Ox 92 06/21/24 15:15 Laboratory Results - last 24 hr 06/20/24 06/21/24 18:02 06:30 WBC 8.06 RBC 3.05 L Hgb 8.7 L Hct 27.8 L MCV 91 D MCH 28.5 MCHC 31.3 L RDW 15.3 H Plt Count 239 MPV 11.4 H Sodium 145 Potassium 3.4 L D Chloride 105 Carbon Dioxide 36.5 H Anion Gap 3.5 BUN 8 Creatinine 0.6 Est GFR (CKD-EPI 2020) 89.01 Glucose 85 Calcium 8.7 Magnesium 1.7 L Total Bilirubin 0.38 AST 13 L ALT 10 L Alkaline Phosphatase 95 Total Protein 5.5 L Albumin 2.0 L Urine Color Cancelled Urine Clarity Cancelled Urine pH Cancelled Ur Specific Mcdermitt Cancelled Urine Protein Cancelled Urine Ketones Cancelled Urine Blood Cancelled Urine Nitrite Cancelled Urine Bilirubin Cancelled Urine Urobilinogen Cancelled Ur Leukocyte Esterase Cancelled Urine Glucose Cancelled Random Vancomycin 16.8 Time Spent with Patient Time Spent with Patient: 35-49 minutes Time was spent: preparing to see the patient(eg.review tests), obtaining and/or reviewing separately otained hiistory, ordering medications,tests, procedures, referring, communicating with other health child care center assistant director, indepentently interpreting results and counseling the patient
[2024-06-21] MEDS: Polyethylene Glycol 3350 17 GM PACKET PO (21:23)
[2024-06-21] MEDS: Docusate Sodium 100 MG CAP PO (21:24)
[2024-06-21] MEDS: traZODone 100 MG TAB 200 MG PO (21:25)
[2024-06-21] MEDS: QUEtiapine 50 MG TAB PO (21:25)
[2024-06-22] VITALS (15 sets, daily range): BP systolic 90–114; BP diastolic 51–71; PULSE 66–93; RESP 3–20; TEMP 35.2–36.6; O2SAT 90–100
[2024-06-22] MEDS: VANCOMYCIN/WATER (PEG) 1 GM/200 ML BAG IVPB ×2 (01:09→14:25)
[2024-06-22 07:14] LABS: Abs Immature Grans 0.04 10^3/uL (0.0-0.06); Absolute Basophil Count 0.02 10^3/uL (0.0-0.2); Absolute Eosinophil Count 0.22 10^3/uL (0.0-0.7); Absolute Lymphocyte Count 1.64 10^3/uL (1.2-3.4); Absolute Monocyte Count 0.91 10^3/uL (0.1-0.8); Absolute Neutrophil Count 3.51 10^3/uL (1.2-6.7); Basophils % 0.3 %; Eosinophils % 3.5 %; HCT 30.4 % (36.0-46.0); HGB 9.2 g/dL (11.2-15.7); Immature Grans % 0.6 %; Lymphocytes % 25.9 %; MCH 28.1 pg (27.0-33.0); MCHC 30.3 % (32.0-36.0); MCV 93 fL (80-95); MPV 11.3 fL (8.0-11.0); Monocytes % 14.4 %; Neutrophils % 55.3 %; Platelet Count 246 10^3/uL (130-400); RBC 3.27 10^6/uL (3.93-5.22); RDW 15.5 % (11.7-14.6); RDW-SD 52.2 fL; WBC 6.34 10^3/uL (4.4-10.8)
[2024-06-22 07:28] LABS: Anion Gap 4.1 mmol/L (3-11); BUN 9 mg/dL (7-18); CO2 35.9 mmol/L (21.0-32.0); CREATININE 0.7 mg/dL (0.55-1.02); Calcium 8.8 mg/dL (8.5-10.1); Chloride 107 mmol/L (98-107); Estimated GFR 85.76 (mL/min/1.73m2); Glucose 83 mg/dL (74-106); Potassium 4.2 mmol/L (3.5-5.1); Sodium 147 mmol/L (136-145)
[2024-06-22] MEDS: Normal Saline Flush 10 ML SYR IVP ×2 (08:19→20:37)
[2024-06-22] MEDS: Midodrine 2.5 MG TAB 5 MG PO ×3 (08:23→20:35)
[2024-06-22] MEDS: Calcium Carbonate *TUMS* 500 MG CHEW 2000 MG CH (08:23)
[2024-06-22] MEDS: Sucralfate 1 GM TAB PO ×3 (08:24→20:35)
[2024-06-22] MEDS: Montelukast 10 MG TAB PO (08:24)
[2024-06-22] MEDS: Ferrous Sulfate 325 MG TAB PO ×3 (08:24→20:36)
[2024-06-22] MEDS: Ascorbic Acid 500 MG TAB 1000 MG PO ×2 (08:24→20:36)
[2024-06-22] MEDS: Lactobacillus Acidophilus CAP 1 CAP PO (08:24)
[2024-06-22] MEDS: Potassium Chloride 20 MEQ TABCR PO ×3 (08:25→20:35)
[2024-06-22] MEDS: medroxyPROGESTERone 5 MG TAB 2.5 MG PO (08:25)
[2024-06-22] MEDS: Omeprazole 20 MG CAPCR PO ×2 (08:25→20:34)
[2024-06-22] MEDS: DULoxetine 30 MG CAP 60 MG PO ×2 (08:25→20:35)
[2024-06-22] MEDS: Benzonatate 100 MG CAP PO ×2 (08:25→20:35)
[2024-06-22] MEDS: Cholecalciferol (Vitamin D3) 1,000 UNIT TAB 2000 UNITS PO (08:26)
[2024-06-22] MEDS: Loratidine 10 MG TAB PO (08:26)
[2024-06-22] MEDS: Magnesium Gluconate 500 MG TAB PO ×2 (08:26→20:36)
[2024-06-22] MEDS: Vitamins B Comp w/C TAB 1 TAB PO (08:26)
[2024-06-22] MEDS: Nystatin 500000 UNITS/5 ML SUSP 5ML CUP PO ×3 (08:26→20:36)
[2024-06-22] MEDS: Pregabalin 25 MG CAP 75 MG PO ×3 (08:26→20:35)
[2024-06-22] MEDS: Multivitamin TAB 1 TAB PO (08:26)
[2024-06-22] MEDS: Albuterol/Ipratropium 3 ML UPD VIAL UPD ×4 (09:32→20:45)
--- NOTE | 2024-06-22 09:54 | IN_ITS ---
PT Notes Visit Reasons: Rec aspiration pneumonia, chronic resp failure Inpatient Physical Therapy Evaluation Date: 06/22/24 Referring Doctor: Manohar Boyce PT Orders: PT CONSULT: Non urgent - evaluation and treatment Precautions: Fall. Standard. admitted for pneumonia, bedbound since December with failed hip repair Patient Profile/Admitting Diagnosis: 83 yo F with history of ILD, resident of [facility] since December 2023 when she fell and broke her hip and never regained the ability to walk. Chronic pain on opioids, who was sent from the [facility] with increasing cough and fever. Admitted for management of pneumonia. She has had recurrent right pneumonia with patient stated she had full evaluation for aspiration which was negative. She also thinks that she did not have a left hip repair though there is an operative note from December 2023 with fixation of her left hip fracture. She has had recurrent pneumonia since her hip fracture and is declining. She did have a short stent in [place], [place] near her relative who reviewed her CODE STATUS and changed to a DNI rather than DNR/DNI. The patient is not doing well and not recovering. She would like to live near her relative importance [facility] and may consider comfort measures if she has recurrent respiratory infections despite antibiotic therapy. She will be admitted with treatment for possible aspiration pneumonia and patient care will be consulted. Long-term she may want to change intermediate to be closer to family. Social History/Home Situation: Resident of [facility]. Per patient report, she had tolerated Rod lift to the chair twice daily. She does not participate in bed mobility or transfers, but does perform UE exercises while sitting in chair. PMHX: PFSH All Active Problems (Updated 06/20/24 @ 21:34 by Xavier Hagen) Altered mental status (Acute) Recurrent pneumonia (Acute) Sepsis (Acute) Chronic pain (Chronic) Pneumonia (Acute) Sepsis associated hypotension (Acute) Nail dystrophy (Acute) Acute on chronic respiratory failure with hypoxia and hypercapnia (Acute) Respiratory failure (Acute) Chronic hypoxic respiratory failure (Chronic) Displaced intertrochanteric fracture of left femur, subsequent encounter for closed fracture with malunion (Acute) Pain due to internal orthopedic prosthetic device (Acute) Lung disease (Acute) Left hip pain (Acute) Interstitial lung disease (Acute) secondary to chronic aspirationSeasonal allergies (Acute) Skin ulcer (Acute) Community acquired pneumonia (Acute) DNR (do not resuscitate) (Acute) E. 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 fell down and could not get upMorbid obesity (Chronic) Allergic rhinitis (Chronic) Hyperlipidemia (Chronic) Fibromyalgia (Chronic) DJD (degenerative joint disease) (Chronic) Gastroesophageal reflux disease (Chronic) Hiatal hernia (Chronic) Irritable bowel syndrome (Chronic) History of surgery (Chronic) a. S/P open right ankle fracture/dislocation. b. Left knee arthroscopy. c. Right wrist fracture repair. d. T/A as a child.Dehydration, mild (Acute 09/22/14) Housing or economic circumstance (Chronic 09/22/14) a. No heat for 1-1/2 daysH/O fall (Chronic) Anemia (Chronic) Alcohol withdrawal delirium (Acute 09/22/14) Rhabdomyolysis (Acute 09/22/14) Ataxia (Chronic) Onychomycosis (Chronic) Depression (Chronic) Medical History Pneumonia Non-sustained ventricular tachycardia Hypotension Intertrochanteric fracture of left femur S/P IM FIXATION 01/01/24Insomnia Frequent falls Alcohol withdrawal NSIP (nonspecific interstitial pneumonia) Fracture of right inferior pubic ramus Fracture of right superior pubic ramus ACP (advance care planning) Laceration of skin of right forearm Skin ulcer of lower leg Laceration of arm, right, complicated Fractured pelvis T12 compression fracture Acute exacerbation of chronic low back pain Fall Person living alone (09/22/14) Hiatal hernia IBS (irritable bowel syndrome) Hypertension Allergic rhinitis GERD (gastroesophageal reflux disease) DJD (degenerative joint disease) Hyperlipidemia Hypercholesterolemia Fibromyalgia Depression Anemia Alcohol abuse Insomnia Surgical History Tonsillectomy and adenoidectomy Repair fracture right wrist ORIF right ankle Colonoscopy - MAC (11/18/16) Arthroplasty of knee left Subjective:? Elvi states that she is not able to do much, and is fearful of increasing hip pain. She agrees to rod transfer bed to chair but not agreeable to bed mobility or attempts to transfer edge of bed. Objective:?? General Observation: Supine in bed. Head of bed 40 degrees. O2 supp via NC 1L. IV inLUE. Telemetry. External catheter. Mental Status: Alert and oriented x 4 Pain: left hip pain with attempted left knee range of motion and when suspended and Rod. This did decrease when she assumes sitting chair posture. ? ROM: Right Upper Extremity: Tolerates shoulder flexion to 150*. Shoulder ER to neutral, IR allows hand to abdomen. Elbow motion WFL. Left Upper Extremity: Tolerates shoulder flexion to 140*. Shoulder ER to neutral, IR allows hand to abdomen. Elbow motion allows flexionto 110*, full extension. Right Lower Extremity: Active hip flexion to 80*. Long lever IR/ER of the hip is WFL. Knee extension 0*, flexion to 110* actively. Ankle DF to neutral actively. Left Lower Extremity: Agrees to assessment of AROM. Long lever hip IR/ER allows 20* arc of motion. Knee flexion to 30* limited by hip pain. Knee extension 0*. Ankle DF to neutral. Strength: Right Upper Extremity: 4- /5 shoulder flexion and abduction.? 4/5 bicep and tricep.? Wrist flexion and extension 4+/5.? Good coremaking machine operator strength Left Upper Extremity: 4/5 shoulder flexion and abduction, 4/5 bicep and tricep.? Wrist extension and flexion 4+/5.? Good coremaking machine operator. Right Lower Extremity: Functionally able to perform small range SLR and heel slide. Ankle DF 4-/5 or greater. Left Lower Extremity: Good quad activation with quad setting. Ankle DF 3/5 or greater. Sensation:? Patient reports intact sensation as to pain and light touch throughout bilateral lower extremities. Bed Mobility/Transfers: Rod transfer at baseline. Max assist for bed mobility for rolling left and right for placement of Rod sling. Transfer via Rod from supine to sitting bedside chair with leg rest. Chair alarm set. Patient given call pittman. Gait:? non-ambulatory Balance:? Static Sitting: unable Dynamic Sitting: unable Static Standing: ? unable Dynamic Standing: Unable to Special Tests: Mobility Limitations Standardized Measure [facility] 6 clicks Basic Mobility Inpatient Short Form: Raw Score: 6? CMS Score: 100% impairment ? ? Informed Consent/Education:? Patient instructed in purpose of PT consult and plan of care. Instructed in bed exercises. Performed the following exercises with patient and completed them with no complaints of pain. Ankle pumps 10x per hour quad sets 10x per hour glute sets 10x per hour ASSESSMENT:?? Patient admitted for medical management of pneumonia, in the presence of chronic mobility impairments due to collapsed hip fx on the left. She is chronically managed by Dr. Lucia, and has not tolerated weight bearing for several months. She is now residing at the [facility] and requires Rod lift transfer at baseline. PT goals will reflect this, with goals established to improve tolerance to bed mobility and positioning in chair. Patient presents with clinical signs and symptoms consistent with current/admitting diagnoses that have resulted to mobility limitations, gait instability, generalized weakness, and overall ADL decline as demonstrated by the following impairment level findings: 1. Decreased strength to B UE/LE major muscle groups as before 2. poorly managed pain 3. Impaired activity tolerance 4. High pain level and high anticipation of pain, high anxiety 5. decreased ROM LLE Impairments are contributing to the following functional limitations: 1. Decline in bed mobility skills 2. Decline in transfer skills 3. non-ambulatory 4. unable to participate in bed mobility Patient is assessed as a 54952 high complexity based on the following: History: 83-year-old female with past medical history as indicated above Examination: Demonstrable impairment in strength, balance, and mobility level with underlying impairments and functional limitations as exhibited above as well as deficit score of 100% utilizing the [facility] Mobility Inpatient Short Form Presentation: Evolving Decision Makin moderate complexity Goals: Goals X1 week 1. Supine-Sit: moderate A 2. Sit-Supine: moderate A 3. sit EOB mod A 4. transfer to chair max A with Rod lift ? Plan of Care/Treatment Plan: 1-2x/day, 7 days/week x 1 week. Plan of care has been reviewed with the BOARD CERTIFIED ORTHODONTIST providing the service under Physical Therapy direction. Initiate Physical Therapy intervention for strengthening, bed mobility, transfers, gait, stairs, balance training, use of assistive device.? DISCHARGE RECOMMENDATIONS:? [] Home with no services [] [] Home with services [specify] [] Home with outpatient PT [] [X] SNF for continued rehabilitation. [] [facility] [] [] SNF versus LTC based on ability to participate and progress [] TREATMENT CODE/TIME: 70753 x 45 minutes for 1 unit ([id number]). Please sign an return this page within 30 days if you agree with the above POC. Thank you! Physician Signature Date Thank you for the opportunity to participate in the care of this patient. Manohar Robles PT, DPT [facility]
[2024-06-22] MEDS: Calcitonin-Salmon, Synthetic 3.7 ML BTL NS (12:16)
[2024-06-22] MEDS: Benzocaine/Menthol LOZG 15/BOX 1 EACH SUC ×2 (12:17→21:07)
[2024-06-22] MEDS: Fluticasone NASAL SPRAY 16 GM BTL NS ×2 (12:17→20:40)
[2024-06-22] MEDS: Milk of Magnesia 30 ML CUP PO (16:33)
--- NOTE | 2024-06-22 17:38 | W.PM.PROGNOT ---
Date of Service Date of service: 06/22/24 Time of Service: 17:38 Assessment and Plan Assessment and plan (1) Recurrent pneumonia: Status: Acute Assessment and plan: She continues on meropenem and vancomycin. She has been afebrile and her white count has normalized. Consider switching her over to oral antibiotics tomorrow. Sputum shows heavy growth of Klebsiella pneumonia resistant to ampicillin but sensitive to other antibiotics. Continue pulmonary toilet with inspirometer and Acapella. Getting up as going to make a big difference. (2) Displaced intertrochanteric fracture of left femur, subsequent encounter for closed fracture with malunion: Status: Acute Assessment and plan: Worked with physical therapy today. She is mobilizing finally. She would be a better candidate for revision of this hip repair once her respiratory status is improved. She has been quite sedated on the MS Contin 30 mg Q8 we will cut this back to 20 mg Q8 and hopefully further decrease opiates which may be inhibiting some of her mobilization. Subjective Subjective Interval history since last seen: She had a good day today. She was up with physical therapy to chair and was in the chair most of the day. Her breathing is a little better today. Appetite is good. Pain control seems better. Exam Narrative Exam Narrative: She is alert and coherent. She responds appropriately to questions. She is asking for more custard. Her lungs are clear on the right and left with good air movement. Heart sounds are regular. Abdomen quite markedly obese but nontender. Objective Last Vital Signs Temp 36.1 C L 06/22/24 16:07 Pulse 93 H 06/22/24 16:07 Resp 20 06/22/24 16:07 BP 105/63 06/22/24 16:07 Pulse Ox 92 06/22/24 16:07 Laboratory Results - last 24 hr 06/22/24 06:47 WBC 6.34 RBC 3.27 L Hgb 9.2 L Hct 30.4 L MCV 93 MCH 28.1 MCHC 30.3 L RDW 15.5 H Plt Count 246 MPV 11.3 H Immature Gran % 0.6 Neutrophils % 55.3 Lymphocytes % 25.9 Monocytes % 14.4 Eosinophils % 3.5 Basophils % 0.3 Nucleated RBC % 0.0 Absolute Neutrophils 3.51 Absolute Lymphocytes 1.64 Absolute Monocytes 0.91 H Absolute Eosinophils 0.22 Absolute Basophils 0.02 Sodium 147 H Potassium 4.2 Chloride 107 Carbon Dioxide 35.9 H Anion Gap 4.1 BUN 9 Creatinine 0.7 Est GFR (CKD-EPI 2020) 85.76 Glucose 83 Calcium 8.8 Time Spent with Patient Time Spent with Patient: <25 minutes Time was spent: preparing to see the patient(eg.review tests), obtaining and/or reviewing separately otained hiistory, ordering medications,tests, procedures, indepentently interpreting results and counseling the patient
[2024-06-22] MEDS: Enoxaparin 40 MG/0.4 ML SYR SC (18:25)
[2024-06-22] MEDS: traZODone 100 MG TAB 200 MG PO (20:35)
[2024-06-22] MEDS: QUEtiapine 50 MG TAB PO (20:35)
[2024-06-23] VITALS (13 sets, daily range): BP systolic 90–136; BP diastolic 54–74; PULSE 64–95; RESP 16–20; TEMP 36.5–37.1; O2SAT 82–98
[2024-06-23] MEDS: Normal Saline Flush 10 ML SYR IVP ×4 (01:30→21:05)
[2024-06-23] MEDS: VANCOMYCIN/WATER (PEG) 1 GM/200 ML BAG IVPB (01:30)
[2024-06-23] MEDS: Nystatin 500000 UNITS/5 ML SUSP 5ML CUP PO ×3 (07:54→21:04)
[2024-06-23] MEDS: Calcium Carbonate *TUMS* 500 MG CHEW 2000 MG CH (07:54)
[2024-06-23] MEDS: Loratidine 10 MG TAB PO (07:55)
[2024-06-23] MEDS: Lactobacillus Acidophilus CAP 1 CAP PO (07:55)
[2024-06-23] MEDS: DULoxetine 30 MG CAP 60 MG PO ×2 (07:56→21:06)
[2024-06-23] MEDS: Montelukast 10 MG TAB PO (07:56)
[2024-06-23] MEDS: Multivitamin TAB 1 TAB PO (07:56)
[2024-06-23] MEDS: Cholecalciferol (Vitamin D3) 1,000 UNIT TAB 2000 UNITS PO (07:56)
[2024-06-23] MEDS: Benzonatate 100 MG CAP PO ×2 (07:58→21:06)
[2024-06-23] MEDS: Pregabalin 25 MG CAP 75 MG PO ×3 (07:58→21:06)
[2024-06-23] MEDS: medroxyPROGESTERone 5 MG TAB 2.5 MG PO (07:59)
[2024-06-23] MEDS: Ascorbic Acid 500 MG TAB 1000 MG PO ×2 (08:00→21:07)
[2024-06-23] MEDS: Sucralfate 1 GM TAB PO ×3 (08:00→21:07)
[2024-06-23] MEDS: Ferrous Sulfate 325 MG TAB PO ×3 (08:00→21:06)
[2024-06-23] MEDS: Vitamins B Comp w/C TAB 1 TAB PO (08:00)
[2024-06-23] MEDS: Midodrine 2.5 MG TAB 5 MG PO ×3 (08:01→21:07)
[2024-06-23] MEDS: Potassium Chloride 20 MEQ TABCR PO ×3 (08:01→21:05)
[2024-06-23] MEDS: Magnesium Gluconate 500 MG TAB PO ×2 (08:02→21:06)
[2024-06-23] MEDS: Calcitonin-Salmon, Synthetic 3.7 ML BTL NS (08:04)
[2024-06-23] MEDS: Omeprazole 20 MG CAPCR PO ×2 (08:04→21:05)
[2024-06-23] MEDS: Fluticasone NASAL SPRAY 16 GM BTL NS ×2 (08:05→21:04)
[2024-06-23] MEDS: Benzocaine/Menthol LOZG 15/BOX 1 EACH SUC ×3 (08:16→21:05)
[2024-06-23] MEDS: Albuterol/Ipratropium 3 ML UPD VIAL UPD ×3 (09:39→16:45)
--- NOTE | 2024-06-23 11:38 | PT.INTREAT ---
Date of service: 06/23/24 Time of Service: 08:45 PT Notes Visit Reasons: Rec aspiration pneumonia, chronic resp failure Inpatient Physical Therapy Treatment Note [facility] Date: 06/23/2024 PRECAUTIONS: Fall. Standard. admitted for pneumonia, bedbound since December with failed hip repair SUBJECTIVE: Stated she is okay with getting up into the chair this morning. We discussed exercises she typically does in the chair at the [facility]. OBJECTIVE: ? PAIN: Left hip is painful when moved. Therapeutic Activities (29392w7): Direct one-on-one instruction in dynamic activities to improve functional performance. ? BED MOBILITY/TRANSFERS? Rolling L/R: mod assist of one with rolling to get kristopher pad under patient. Able to go bed to chair with kristopher and CGA of 2 with nurse controlling kristopher. ? Therapeutic Exercises (32313l4): Direct one-on-one instruction in therapeutic exercises to develop strength, endurance, range of motion and flexibility. ? Exercises ? While in supine with head elevated to 40 degrees patient was able to perform bicep curls, bilateral UE shoulder abd/adduction and shoulder flexion to approximately 80-90 degrees for 10 reps each. Also worked on bilateral quad sets, glute sets and ankle pumps, as well as right LE heel slides, hip abd/adduction and rolling leg into IR/ER with knee straight for 10 reps each. Provided skilled instruction in proper exercise performance. ASSESSMENT:? Tolerated today's session well with good cooperation given with exercises and transfer to chair with kristopher lift. PLAN: Continue to work in improved functional mobility and strengthening, as able to tolerate. TREATMENT CODE/TIME: 33971 and 43515, 8:45 to 8:55 -Ther exer (10') and 9:55 to 10:05 (10') Ther act
--- NOTE | 2024-06-23 16:19 | PGE_ITS ---
Date of Service Date of service: 06/23/24 Time of Service: 16:19 Assessment and Plan Assessment and plan (1) Recurrent pneumonia: Status: Acute Assessment and plan: She seems to be turning the corner. She is holding her sats. She is more active. She still has a very rhonchorous and productive cough. Continue good pulmonary toilet with updrafts, inspirometer, Acapella. No fevers and stable vital signs will change from IV to p.o. antibiotics. Sputum is growing Klebsiella pneumoniae and normal lulú urine is growing gram-positive lulú mixed and gram-negative rods and yeast blood cultures are no growth. Will switch her to cefpodoxime 200 mg twice daily. (2) Displaced intertrochanteric fracture of left femur, subsequent encounter for closed fracture with malunion: Status: Acute Assessment and plan: The left hip fracture repair in December is still causing her pain. There is talk of having that redone. She will need to have her respiratory issues cleared up if she is a candidate for any further surgery. (3) Acute on chronic respiratory failure with hypoxia and hypercapnia: Status: Acute Assessment and plan: Severe chronic lung disease with chronic O2 requirement. She is gradually improving. (4) Altered mental status: Status: Acute Assessment and plan: Altered mental status has improved. Qualifiers: Altered mental status type: delirium Qualified Code(s): R41.0 - Disorientation, unspecified (5) Sepsis: Status: Acute Assessment and plan: Vital signs of stabilized. Switching to p.o. antibiotics. Subjective Subjective Interval history since last seen: Clearly more mobile moving better. She has been up in the chair most of the day. She is doing exercises with physical therapy. Still has a productive cough. No fevers. She is baseline on 2 to 3 L/min of oxygen at the [facility]. She can maintain sats of 95% with is little as 0.5 L/min of oxygen but quickly desaturates with any activity. Nurses reports she is difficult to arouse when she falls asleep. They are concerned about polypharmacy and being overmedicated. We did cut back her MS Contin to twice daily which did not seem to cause worsening of her pain. Exam Narrative Exam Narrative: She sitting up in the chair with oxygen in place. She smiles readily and is interactive. She still has a harsh raspy cough occasionally productive of some grayish sputum. Posterior lung exam does still have some rales at the very lower bases and rhonchorous breath sounds in the upper lung meredith. Heart sounded regular. Abdomen quite markedly obese but nontender. Lower extremities no significant edema. Objective Last Vital Signs Temp 37 C 06/23/24 15:31 Pulse 87 06/23/24 15:31 Resp 19 06/23/24 15:31 BP 99/70 L 06/23/24 15:31 Pulse Ox 95 06/23/24 15:31 Time Spent with Patient Time Spent with Patient: 25-34 minutes Time was spent: preparing to see the patient(eg.review tests), obtaining and/or reviewing separately otained hiistory, ordering medications,tests, procedures, referring, communicating with other health toddler caregiver, indepentently interpreting results and counseling the patient
[2024-06-23] MEDS: Enoxaparin 40 MG/0.4 ML SYR SC (17:24)
[2024-06-23] MEDS: Cefpodoxime 200 MG TAB PO (21:05)
[2024-06-23] MEDS: traZODone 100 MG TAB 200 MG PO (21:06)
[2024-06-23] MEDS: QUEtiapine 50 MG TAB PO (21:06)
[2024-06-23] MEDS: Polyethylene Glycol 3350 17 GM PACKET PO (21:12)
[2024-06-23] MEDS: Docusate Sodium 100 MG CAP PO (21:12)
[2024-06-24] VITALS (12 sets, daily range): BP systolic 101–127; BP diastolic 61–71; PULSE 85–105; RESP 3–20; TEMP 36.4–37.1; O2SAT 90–96
[2024-06-24 07:06] LABS: Abs Immature Grans 0.03 10^3/uL (0.0-0.06); Absolute Basophil Count 0.03 10^3/uL (0.0-0.2); Absolute Eosinophil Count 0.39 10^3/uL (0.0-0.7); Absolute Lymphocyte Count 1.65 10^3/uL (1.2-3.4); Absolute Monocyte Count 0.69 10^3/uL (0.1-0.8); Absolute Neutrophil Count 2.62 10^3/uL (1.2-6.7); Basophils % 0.6 %; Eosinophils % 7.2 %; HCT 32.7 % (36.0-46.0); HGB 10.2 g/dL (11.2-15.7); Immature Grans % 0.6 %; Lymphocytes % 30.5 %; MCH 28.5 pg (27.0-33.0); MCHC 31.2 % (32.0-36.0); MCV 91 fL (80-95); MPV 11.5 fL (8.0-11.0); Monocytes % 12.8 %; Neutrophils % 48.3 %; Platelet Count 148 10^3/uL (130-400); RBC 3.58 10^6/uL (3.93-5.22); RDW 16.3 % (11.7-14.6); RDW-SD 54.8 fL; WBC 5.41 10^3/uL (4.4-10.8)
[2024-06-24 07:14] LABS: Anion Gap 1.3 mmol/L (3-11); BUN 10 mg/dL (7-18); CO2 34.7 mmol/L (21.0-32.0); CREATININE 0.6 mg/dL (0.55-1.02); Calcium 9.2 mg/dL (8.5-10.1); Chloride 107 mmol/L (98-107); Estimated GFR 89.01 (mL/min/1.73m2); Glucose 92 mg/dL (74-106); Potassium 4.7 mmol/L (3.5-5.1); Sodium 143 mmol/L (136-145)
--- NOTE | 2024-06-24 07:32 | PCNE_ITS ---
Date of service: 06/24/24 Time of Service: 07:32 History of Present Illness History of Present Illness Chief Complaint: Sepsis, respiratory failure Narrative: From H and P History of Present Illness Chief Complaint: Altered mental status with hypoxemia and fever. Narrative: This is an 83-year-old female patient who resides at the [facility], at local prison who has had a fall in December 2023 with a broken hip with repair and has been declining since. Patient stated that her hip could not be fixed because of high anesthesia risk though review of the operative note 01/01/2024 confirms fixation of that hip. She has been less ambulatory and active since that surgery. She had admission in April 2024 for community-acquired pneumonia and return to the [facility] only to come back in May with a hospital-acquired pneumonia and then again on the of that month with hospital-acquired pneumonia being discharged on 12 June. She now presents again with altered mental status with fever and worsening hypoxemia having chronic hypoxic respiratory failure. Her repeated pneumonia is always on the right side and with right sided recurring pneumonia, aspiration needs to be considered though she states full evaluation for aspiration was negative when she resided during her relative in [place], [place]. She may be approaching comfort measures only with the patient being a DNI and previously a DNR which was changed when she was with her relative in [place], [place]. She is not responding to repeated treatments and now has a recurrent pneumonia with productive sputum and severe hypoxemia. She is overweight and may have an element of PASTORA though this is not on her problem list. As stated, the patient presently is a DNI but we did discuss the COLST form no sign or filled out and she may need to have palliative care review DNR/DNI status which would be more appropriate. Interim Hx: I know and from our palliative visits at the [facility]. She is an 83-year-old woman who has had declining health for many years but definitely worse after her hip surgery. She is pretty much bedbound at the [facility] and requires Rod lift to get out of bed and into a chair .she has had recurrent pneumonias and per patient has had an aspiration workup which was negative. Still it was considered repeat problems from probable aspiration and has had different admissions due to this. I was asked by the hospitalist team to clarify and his CODE STATUS and also to discuss comfort care Elvi states that she knows she is not doing well. She also understands that her is not far away. She does understand the concept of comfort care and staying at the [facility] or other prison and not being transported when she gets very sick. She cannot quite wrap her head around staying at a prison when she is very sick even though they could administer antibiotics etc. she would like to be closer to her sister who lives in [place] and is working on moving her Medicare Medicaid to [place] and having her closer in a prison. This does not seem to be happening quickly, but does seem to be in the works. And does reflect several times on what comfort care would mean and how she would be cared for She also has significant pain in her hip. She does have a known complication and because of her overall health is not a surgical candidate. This makes it nearly impossible for her to exercise and requires most care and moving from chair to bed etc. she cannot pivot and she does need Rod. I originally met her when her pain was not well-controlled. We worked together on getting a better plan. Unfortunately due to her different hospitalizations we have not been able to keep up our monthly visits. She states that her pain remains undertreated Consults Consult date: 06/24/24 Assessment and Plan Assessment and plan (1) Sepsis: Status: Acute (2) Altered mental status: Status: Acute Qualifiers: Altered mental status type: delirium Qualified Code(s): R41.0 - Disorientation, unspecified (3) Acute on chronic respiratory failure with hypoxia and hypercapnia: Status: Acute (4) Recurrent pneumonia: Status: Acute (5) ACP (advance care planning): Status: Acute Assessment and plan: I have known and for several months because of our visits at the [facility]. Today she was quite sleepy and was unable to answer questions. I explained to her that I will come back this afternoon and we can talk at that time. I stated that we we will be talking about her CODE STATUS. She has recently changed it from DNR DNI to DNI. Also because of her recurrent aspiration and hypoxia what her needs to be better met if she went to the comfort care route. She did shake her head to state that she understood or at least hurt me regarding the nature of our visit later today. Hypotension on midodrine?she is in the low BP's but not critical. EVENING VISIT: This evening she was much more awake. She stated that she was feeling better. She was hoping to be able to move to a [place] prison sometime in the near future so she could be closer to her sister We did discuss the COLST form. We discussed this at length including the pros and cons of CPR and the likelihood of responding in a positive manner to CPR attempts. She decided that she wanted to return to DNR/DNI and we completed the COLST form together. She signed it. She does have the original. A copy has been sent to [facility] and also placed in the EMR We also discussed comfort care. She does not feel she is quite there yet. She was hoping to get closer to her sister and then she would opt for that. She seemed to have a hard time wrapping her head around getting progressively sicker and the idea of not being transported to a hospital. We talked of this in terms of hospice like care. She is thinking about it. Chronic pain?her pain is significant and she feels it is undertreated. I will be certain to follow-up on this at the [facility] after her discharge. I only see MS Bedoya on her med sheet. ??? break through pain medication Discussed with the hospitalist team Review of Systems Narrative: Chronic severe hip pain, recurrent pneumonia thought to be aspiration, obesity, respiratory failure with hypoxia and hypercapnia PFSH All Active Problems (Updated 06/24/24 @ 07:34 by Chrissy Carrasquillo MD, DC) ACP (advance care planning) (Acute) Altered mental status (Acute) Recurrent pneumonia (Acute) Sepsis (Acute) Acute on chronic respiratory failure with hypoxia and hypercapnia (Acute) Displaced intertrochanteric fracture of left femur, subsequent encounter for closed fracture with malunion (Acute) Medical History Chronic pain Pneumonia Sepsis associated hypotension Nail dystrophy Non-sustained ventricular tachycardia Respiratory failure Pneumonia Chronic hypoxic respiratory failure Pain due to internal orthopedic prosthetic device Lung disease Left hip pain Seasonal allergies Hypotension Intertrochanteric fracture of left femur S/P IM FIXATION 01/01/24 Acute UTI Skin ulcer DNR (do not resuscitate) 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 No heat for 1-1/2 days Dehydration, mild (09/22/14) Irritable bowel syndrome Hiatal hernia Gastroesophageal reflux disease Insomnia DJD (degenerative joint disease) Fibromyalgia Hyperlipidemia Allergic rhinitis Morbid obesity Fall (09/22/14) a. fell down and could not get up Frequent falls Alcohol withdrawal NSIP (nonspecific interstitial pneumonia) Fracture of right inferior pubic ramus Fracture of right superior pubic ramus Laceration of skin of right forearm Skin ulcer of lower leg Laceration of arm, right, complicated Fractured pelvis T12 compression fracture Acute exacerbation of chronic low back pain Fall Hiatal hernia IBS (irritable bowel syndrome) Hypertension Allergic rhinitis GERD (gastroesophageal reflux disease) DJD (degenerative joint disease) Hyperlipidemia Hypercholesterolemia Fibromyalgia Depression Anemia Alcohol abuse Insomnia Person living alone (09/22/14) Surgical History (Updated 06/21/24 @ 19:15 by Manohar Boyce MD) History of surgery a. S/P open right ankle fracture/dislocation. b. Left knee arthroscopy. c. Right wrist fracture repair. d. T/A as a child. Tonsillectomy and adenoidectomy Repair fracture right wrist ORIF right ankle Colonoscopy - MAC (11/18/16) Arthroplasty of knee left Family History Mother Dementia Maternal Aunt Diabetes Social History Smoking/Tobacco Use Status: Former Tobacco Use Smoking risk assessment performed?: Yes Alcohol Intake: current Alcohol Intake frequency: 0-2 drinks per day Alcohol type: wine Counseling given: Yes Details: 1-2 bottle of wine/day Drug use: Current Sobriety Substance use type: does not use and marijuana Details: two tokes for sleep Housing: prison Do you feel safe at home: Yes Do you feel safe in your relationship?: Yes Additional Social history: [facility] Exam Narrative Exam Narrative: And was getting moved from her chair to her bed. It took a Rod lift and 3 nurses to accomplish this. She had very thoughtful questions and appeared to comprehend concepts such as comfort care. Lungs little air movement some rales right base. Heart rate controlled. 2/6 systolic murmur. Abdomen obese nontender. Mood contemplative Results Last Vital Signs Temp 97.5 F L 06/24/24 03:21 Pulse 85 06/24/24 03:21 Resp 19 06/24/24 03:21 BP 109/68 06/24/24 03:21 Pulse Ox 93 06/24/24 03:21 Labs 06/24/24 06:34 06/24/24 06:34 Labs: Laboratory Results - last 24 hr 06/24/24 06:34 WBC 5.41 RBC 3.58 L Hgb 10.2 L Hct 32.7 L MCV 91 MCH 28.5 MCHC 31.2 L RDW 16.3 H Plt Count 148 MPV 11.5 H Immature Gran % 0.6 Neutrophils % 48.3 Lymphocytes % 30.5 Monocytes % 12.8 Eosinophils % 7.2 Basophils % 0.6 Nucleated RBC % 0.0 Absolute Neutrophils 2.62 Absolute Lymphocytes 1.65 Absolute Monocytes 0.69 Absolute Eosinophils 0.39 Absolute Basophils 0.03 Sodium 143 Potassium 4.7 Chloride 107 Carbon Dioxide 34.7 H Anion Gap 1.3 L BUN 10 Creatinine 0.6 Est GFR (CKD-EPI 2020) 89.01 Glucose 92 Calcium 9.2 Imaging Additional studies: cx- Exam is limited by poor pulmonary inflation. Increased densities are seen primarily in the right lung. There is crowding of pulmonary vessels related to expiratory changes. No gross effusions. Findings roughly stable from prior. Central line no longer seen. LUNGS: Clear. No pleural abnormality seen. HEART: Normal size. AORTA: Normal diameter. BONES: Unremarkable for age. Soft tissues: Unremarkable. IMPRESSION: Limited exam due to poor inspiration. No significant change in right-sided infiltrates. Time Spent Time Spent with Patient Time Spent(min): 69
[2024-06-24] MEDS: Calcitonin-Salmon, Synthetic 3.7 ML BTL NS (08:11)
[2024-06-24] MEDS: Cefpodoxime 200 MG TAB PO ×2 (08:14→19:43)
[2024-06-24] MEDS: Pregabalin 25 MG CAP 75 MG PO ×3 (08:15→19:43)
[2024-06-24] MEDS: Vitamins B Comp w/C TAB 1 TAB PO (08:15)
[2024-06-24] MEDS: Lactobacillus Acidophilus CAP 1 CAP PO (08:15)
[2024-06-24] MEDS: Fluticasone NASAL SPRAY 16 GM BTL NS ×2 (08:17→19:53)
[2024-06-24] MEDS: Benzonatate 100 MG CAP PO ×2 (08:18→19:43)
[2024-06-24] MEDS: Ferrous Sulfate 325 MG TAB PO ×3 (08:19→19:44)
[2024-06-24] MEDS: DULoxetine 30 MG CAP 60 MG PO ×2 (08:19→19:43)
[2024-06-24] MEDS: Loratidine 10 MG TAB PO (08:20)
[2024-06-24] MEDS: Cholecalciferol (Vitamin D3) 1,000 UNIT TAB 2000 UNITS PO (08:21)
[2024-06-24] MEDS: Multivitamin TAB 1 TAB PO (08:21)
[2024-06-24] MEDS: Midodrine 2.5 MG TAB 5 MG PO ×3 (08:22→19:42)
[2024-06-24] MEDS: Magnesium Gluconate 500 MG TAB PO ×2 (08:23→19:44)
[2024-06-24] MEDS: Ascorbic Acid 500 MG TAB 1000 MG PO ×2 (08:24→19:44)
[2024-06-24] MEDS: Sucralfate 1 GM TAB PO ×3 (08:25→19:43)
[2024-06-24] MEDS: Potassium Chloride 20 MEQ TABCR PO ×3 (08:25→19:43)
[2024-06-24] MEDS: medroxyPROGESTERone 5 MG TAB 2.5 MG PO (08:26)
[2024-06-24] MEDS: Calcium Carbonate *TUMS* 500 MG CHEW 2000 MG CH (08:28)
[2024-06-24] MEDS: Nystatin 500000 UNITS/5 ML SUSP 5ML CUP PO ×3 (08:31→19:44)
[2024-06-24] MEDS: Omeprazole 20 MG CAPCR PO ×2 (08:37→19:44)
[2024-06-24] MEDS: Normal Saline Flush 10 ML SYR IVP ×2 (08:39→19:44)
--- NOTE | 2024-06-24 08:43 | PDOC.CMPRO ---
Date of service: 06/24/24 Time of Service: 08:43 Care Management Progress Note Progress Note Text Progress Note Text: Elvi was on the phone each time CM attempted to meet with her. She is admitted for recurrent pneumonia and has advanced care planning needs. Palliative provider met with her early this morning and will be back later today to discuss goals of care due to recurrent respiratory complications. Elvi will return to the [facility] for LTC when medically ready, potentially with hospice services. CM will follow. Discharge Potential Discharge Needs: Other (Return to SNF) Anticipated Barriers to Discharge: Medical Status Patient/Family Education Needs: Review discharge instructions, discuss Ask Me Three Transportation: RCT (Dependent on patients mobility level at time of discharge.) Plan: Anticipate Elvi will return to the [facility] when medically cleared; potentially with Hospice services. Palliative is following goals of care. Elvi will follow up with the facility providers and plan of care and transport via RCT coordinated by CM. CM will follow and continue to support discharge needs. SDOH(Care Management) Screening Will the Patient Participate in the Screening?: Yes Do you worry about having a steady place to live?: no In the past 12 months, have you had to go without electric, gas, oil or water in your home?: no Have you or anyone in your house had to go without enough food to eat?: no Has lack of transportation kept you from medical appointments or from doing things needed for daily living?: no Has anyone in your support network made you feel unsafe for any reason?: no Health Related Social Needs Health related social needs details: Pt is a resident at the [facility] in [place].
[2024-06-24] MEDS: Albuterol/Ipratropium 3 ML UPD VIAL UPD ×2 (09:21→16:31)
--- NOTE | 2024-06-24 10:04 | PT.INTREAT ---
PT Notes Visit Reasons: Rec aspiration pneumonia, chronic resp failure Physical Therapy Inpatient Note Date:06/24/2024 SUBJECTIVE: Patient said that she has been transferred to and from bed at the [facility] using mechanical lift since she came there in December of 2023. OBJECTIVE: ? ? ? External female catheter in place. ? VITALS: Monitored by nursing staff ? ? BED MOBILITY/TRANSFERS? Supine-sit: maximal assist? Sit-stand: Unable? Stand-sit: Unable? Bed-bedside recliner: Mechanical assist/kristopher with 2 assist ? GAIT? Assistive Device: Unable? Weight bearing: NWB on the L LE? ? ? Assist: Unable at this time ? Distance:? Unable at this time ? THERA EX: Provided instrctution on safe and correct performance of: Chest expansion exercises with deeep breathing with shoulder flexion/extension, diagnonal UE patterns, and shoulder horizontal abduction/adduction x 5 for 2 sets Quadriceps sets with 5 sh x 10 Gluteal sets on R with 5 sh x 10 Ankle circles B sides x 10 for 2 sets Knee to chest R x 10 ASSESSMENT: She is S/P ORIF of L intertrochateric fracture on 01/01/2024 and has been using the mechanincal lift for all trsnfers at the SNF which has resulted to continued functional decline. PLAN OF CARE: Will determine safety and appropriateness of training for stand pivot transfers while on admission for this episode of care. TREATMENT CODE/TIME: 73526 x 12 minutes for 1 unit, 89943 x 12 minutes for 1 unit (10:04-10:28). Patient was seen later in the afternoon from 15:44-15:50 (6 minutes) to assist with kristopher transfer but no charge was made.
[2024-06-24] MEDS: Montelukast 10 MG TAB PO (10:15)
--- NOTE | 2024-06-24 12:36 | NUR.NOTE ---
Documentation reviewed with VALVE TE[employer] student, Jolly Mcgrath. Agree with documentation. Mai Guadarrama, MSN, RNC-OB
--- NOTE | 2024-06-24 17:45 | PGE_ITS ---
Date of Service Date of service: 06/24/24 Time of Service: 17:45 Assessment and Plan Assessment and plan (1) Recurrent pneumonia: Status: Acute Assessment and plan: -improved with antibiotic therapy, will continue cefpodoxime -Continue good pulmonary toilet with updrafts, inspirometer, Acapella. -putum is growing Klebsiella pneumoniae and normal lulú urine is growing gram- positive lulú mixed and gram-negative rods and yeast blood cultures are no growth. (2) Displaced intertrochanteric fracture of left femur, subsequent encounter for closed fracture with malunion: Status: Acute Assessment and plan: -The left hip fracture repair in December is still causing her pain; initially talk of having a revision surgery however please see palliative care note for further details this patient is now DNR/DNI and will likely transition to comfort/hospice care as outpatient (3) Acute on chronic respiratory failure with hypoxia and hypercapnia: Status: Acute Assessment and plan: -Severe chronic lung disease with chronic O2 requirement. -Patient is improved to the point that she is on room air at rest -Will however likely need supplemental oxygen at discharge (4) Altered mental status: Status: Acute Assessment and plan: Altered mental status has improved. Qualifiers: Altered mental status type: delirium Qualified Code(s): R41.0 - Disorientation, unspecified (5) Sepsis: Status: Acute Assessment and plan: Vital signs of stabilized. Switching to p.o. antibiotics. Subjective Subjective Interval history since last seen: And is happy that she is feeling much better as compared to admission, and even better than prior to her current illness that she is on room air. She states she is happy she had a chance to speak with Dr. Carrasquillo and is comfortable with her decision to be DNR/DNI and likely transition to hospice/comfort directed care once back at the [facility]. Exam Narrative Exam Narrative: Well-appearing but chronically ill older female laying in bed in no acute distress, ANO x 4, heart regular rhythm, lungs diffuse coarse breath sounds with good air movement throughout, abdomen soft, nontender, nondistended Objective Last Vital Signs Temp 98.4 F 06/24/24 15:02 Pulse 90 06/24/24 16:38 Resp 16 06/24/24 16:31 BP 111/71 06/24/24 15:02 Pulse Ox 90 L 11/04/24 16:31 Laboratory Results - last 24 hr 06/24/24 06:34 WBC 5.41 RBC 3.58 L Hgb 10.2 L Hct 32.7 L MCV 91 MCH 28.5 MCHC 31.2 L RDW 16.3 H Plt Count 148 MPV 11.5 H Immature Gran % 0.6 Neutrophils % 48.3 Lymphocytes % 30.5 Monocytes % 12.8 Eosinophils % 7.2 Basophils % 0.6 Nucleated RBC % 0.0 Absolute Neutrophils 2.62 Absolute Lymphocytes 1.65 Absolute Monocytes 0.69 Absolute Eosinophils 0.39 Absolute Basophils 0.03 Sodium 143 Potassium 4.7 Chloride 107 Carbon Dioxide 34.7 H Anion Gap 1.3 L BUN 10 Creatinine 0.6 Est GFR (CKD-EPI 2020) 89.01 Glucose 92 Calcium 9.2 Time Spent with Patient Time Spent with Patient: >50 minutes Time was spent: preparing to see the patient(eg.review tests), obtaining and/or reviewing separately otained hiistory, ordering medications,tests, procedures, referring, communicating with other health career development facilitator, indepentently interpreting results, counseling the patient and care coordination
[2024-06-24] MEDS: traZODone 100 MG TAB 200 MG PO (19:43)
[2024-06-24] MEDS: QUEtiapine 50 MG TAB PO (19:43)
--- NOTE | 2024-06-25 02:12 | PTTR_ITS ---
PT Notes Visit Reasons: Rec aspiration pneumonia, chronic resp failure Physical Therapy Inpatient Note Date:06/25/2024 SUBJECTIVE: Highly anxious about trying out standing as she has been mechanically lifted at the [facility] for all transferred. OBJECTIVE: ? ? ? External female catheter in place. ?Oxygen discharged as of today.? VITALS: Monitored by nursing staff ? ? BED MOBILITY/TRANSFERS? Supine-sit: maximal assist? Sit-stand: Unable? Stand-sit: Unable? Bed-bedside recliner: Mechanical assist/kristopher with 2 assist ? GAIT? Assistive Device: Unable? Weight bearing: NWB on the L LE? ? ? Assist: Unable at this time ? Distance:? Unable at this time ? THERA EX: Facilitated education and training ofn safe performance of HEP with patient this morning: Access Code: [email or web address] URL: [email or web address] Date: 06/25/2024 Prepared by: Kelsey Skelton Exercises - Lateral Costal Breathing with Shoulder Abduction - 1 x daily - 7 x weekly - 1 sets - 10 reps - 5 hold - Horizontal Shoulder Abduction and Adduction with Coordinated Breathing - 1 x daily - 7 x weekly - 1 sets - 10 reps - 5 hold - Shoulder Flexion and Extension with Coordinated Breathing - 1 x daily - 7 x weekly - 1 sets - 10 reps - 5 hold - Supine Diaphragmatic Breathing with Pelvic Floor Lengthening - 1 x daily - 7 x weekly - 1 sets - 10 reps - 5 hold - Seated Diaphragmatic Breathing - 1 x daily - 7 x weekly - 1 sets - 10 reps - 5 hold - Supine Quadricep Sets - 1 x daily - 7 x weekly - 1 sets - 10 reps - 5 hold - Supine Gluteal Sets - 1 x daily - 7 x weekly - 1 sets - 10 reps - 5 hold - Supine Heel Slide - 1 x daily - 7 x weekly - 1 sets - 10 reps - 5 hold - Bent Knee Fallouts - 1 x daily - 7 x weekly - 1 sets - 10 reps - 5 hold - Supine Ankle Pumps - 1 x daily - 7 x weekly - 1 sets - 10 reps - 5 hold - Supine Single Knee to Chest - 1 x daily - 7 x weekly - 1 sets - 10 reps - 5 hold ASSESSMENT: She is S/P ORIF of L intertrochateric fracture on 01/01/2024 and has been using the mechanical lift for all tranfers at the [facility] which has resulted to continued functional decline. Patient has been highly anxious about a couple of attempts at trying out standing on the R LE with NWB on the L LE as she does not feel strong enough to do so despite offer of adequate help as needed. Patient highly anxious about trying our stand pivot transfers as she feels that she is not strong enough to do it. She has been mechanically transferred at the [facility] since admission back in December of 2023. She will require more strengthening and parallel bar training to start with increasing standing balance and tolerance and potentially do stand pivot transfers at the [facility]. PLAN OF CARE: Increase standing balance and tolerance inside parallel bars with NWB on the L LE. Subacute PT at [facility] to determine appropriateness of progression to stand pivot transfers whenever safe. TREATMENT CODE/TIME: Session 1--32380 x 38 minutes for 3 units (8:10-8:48). Session 2--91578 x 23 minutes for 2 units (14:12-14:35).
[2024-06-25 02:55] VITALS: BP 112/63; PULSE 93; RESP 18; TEMP 37; O2SAT 90
[2024-06-25 07:51] VITALS: BP 136/84; PULSE 88; RESP 20; TEMP 35.7; O2SAT 92
[2024-06-25] MEDS: Magnesium Gluconate 500 MG TAB PO (08:10)
[2024-06-25] MEDS: Potassium Chloride 20 MEQ TABCR PO (08:10)
[2024-06-25] MEDS: Multivitamin TAB 1 TAB PO (08:10)
[2024-06-25] MEDS: Normal Saline Flush 10 ML SYR IVP (08:10)
[2024-06-25] MEDS: Benzonatate 100 MG CAP PO (08:10)
[2024-06-25] MEDS: Cefpodoxime 200 MG TAB PO (08:11)
[2024-06-25] MEDS: Acetaminophen 325 MG TAB PO (08:12)
[2024-06-25] MEDS: DULoxetine 30 MG CAP 60 MG PO (08:12)
[2024-06-25] MEDS: Omeprazole 20 MG CAPCR PO (08:13)
[2024-06-25] MEDS: medroxyPROGESTERone 5 MG TAB 2.5 MG PO (08:13)
[2024-06-25] MEDS: Montelukast 10 MG TAB PO (08:13)
[2024-06-25] MEDS: Cholecalciferol (Vitamin D3) 1,000 UNIT TAB 2000 UNITS PO (08:14)
[2024-06-25] MEDS: Loratidine 10 MG TAB PO (08:14)
[2024-06-25] MEDS: Pregabalin 25 MG CAP 75 MG PO (08:15)
[2024-06-25] MEDS: Ferrous Sulfate 325 MG TAB PO (08:16)
[2024-06-25] MEDS: Lactobacillus Acidophilus CAP 1 CAP PO (08:16)
[2024-06-25] MEDS: Vitamins B Comp w/C TAB 1 TAB PO (08:16)
[2024-06-25] MEDS: Sucralfate 1 GM TAB PO (08:16)
[2024-06-25] MEDS: Midodrine 2.5 MG TAB 5 MG PO (08:16)
[2024-06-25] MEDS: Ascorbic Acid 500 MG TAB 1000 MG PO (08:17)
[2024-06-25] MEDS: Nystatin 500000 UNITS/5 ML SUSP 5ML CUP PO (08:18)
[2024-06-25] MEDS: Calcium Carbonate *TUMS* 500 MG CHEW 2000 MG CH (08:18)
[2024-06-25 08:24] VITALS: PULSE 91; RESP 18; RESP 9; O2SAT 92
[2024-06-25] MEDS: Albuterol/Ipratropium 3 ML UPD VIAL UPD (08:24)
[2024-06-25 08:29] VITALS: PULSE 94
--- NOTE | 2024-06-25 10:54 | PDOC.CMDIS ---
Date of service: 06/25/24 Time of Service: 10:54 LACE Index Scoring Tool Questions: Length of Stay (in days): 4 - 6 Was the patient admitted via the E.D.?: Yes Comorbidities: Chronic Pulmonary Disease E.D. Visits: 5 Answers: Total Score: 13 Risk of Readmission: High Risk Care Management Discharge Plan Reason for Hospitalization: Aspiration pneumonia Discharge Plan: Discharge back to SNF for LTC. Plan to follow up with facility/community and Palliative providers. EMS will transport. Patient/Family Education Needs: Discharge instructions, limitations, medications and plan to follow up with community providers. Discuss ask me three and goals of care. Services Needed at Discharge: Chcf Facility (Return to the [facility]) and Transportation (EMS, [facility], Coordinated by CM.) SDOH Health Related Social Needs: Health related social needs details Pt is a resident at the [facility] in [place]. Health related social needs details: Pt is a resident at the [facility] in [place].
--- NOTE | 2024-06-25 11:25 | DSE_ITS ---
Date of service: 06/25/24 Time of Service: 11:25 DS: Diagnosis Discharge Diagnosis (1) Sepsis: Status: Acute (2) Altered mental status: Status: Acute (3) Acute on chronic respiratory failure with hypoxia and hypercapnia: Status: Acute (4) Recurrent pneumonia: Status: Acute (5) ACP (advance care planning): Status: Acute Discharge Plan Disposition Patient Disposition: Nursing Home Facility(SNF) Condition: Good Discharge Details Reason For Visit: Rec aspiration pneumonia, chronic resp failure Admit Date/Time: 06/20/24 08:56 Admit Provider: Xavier Hagen Attending Provider: Xavier Hagen Primary Care Provider: Iesha Leary Hospital Course Hospital Course: Patient presented with signs and symptoms that were ultimately determined to be secondary to recurrent pneumonia in the setting of chronic hypoxic respiratory failure and end-stage COPD. Patient was treated with course of IV antibiotics- sputum grew Klebsiella with urine growing gram-positive mixed lulú and gram- negative rods for which patient was ultimately transitioned to cefpodoxime orally and will continue for an additional 5 days after discharge. Additionally, the patient had a long discussion with the palliative care and decided to change her CODE STATUS to DNR/DNI and was open to the idea of likely transitioning to hospice or comfort measures once back at the [facility] and patient is having potential situation where her medical condition again begins to rapidly decline. However, patient also has had improvement in her oxygen requirements, and that she is normally on 2 L at baseline she has been saturating 92% on room air. Which time was determined that the patient was stable for discharge back to the [facility]. Home Meds and New Rx's Prescriptions: New cefpodoxime 200 mg Tablet 200 mg PO BID 5 Days Qty: 10 0RF Continued Balanced B-100 Complex 100 mg tablet extended release 1 tab PO DAILY vitamin A 2,400 mcg capsule 2,400 mcg PO DAILY PRN ginkgo biloba 40 mg tablet 240 mg PO DAILY PRN Rx Instructions: give with meal/snack magnesium 250 mg tablet 500 mg PO BID zinc acetate 25 mg (zinc) capsule 100 mg PO BID vitamin E (dl, acetate) 45 mg (100 unit) capsule 180 mg PO DAILY loratadine [Allergy Relief (loratadine)] 10 mg tablet 10 mg PO DAILY polyethylene glycol 3350 17 gram/dose powder 17 g PO DAILY Neuriva Original 100-100 mg capsule 1 cap PO DAILY PRN calcium carbonate [Tums Ultra] 400 mg calcium (1,000 mg) tablet,chewable 2,000 mg PO DAILY PRN Rx Instructions: take 2 tablets (2000mg) by mouth daily *patient will supply sucralfate 1 gram tablet 1 g PO TID omeprazole 20 mg capsule,delayed release(DR/EC) 20 mg PO BID Qty: 60 12RF bisacodyl 10 mg suppository 10 mg NJ DAILY PRN multivitamin Tablet 1 tab PO DAILY benzonatate 100 mg capsule 100 mg PO BID montelukast 10 mg tablet 10 mg PO DAILY Qty: 90 4RF ferrous sulfate 325 MG tablet 325 mg PO TID cholecalciferol (vitamin D3) [Vitamin D3] 400 UNIT tablet 50 mcg PO DAILY glucosamine sulfate 2KCl 1,000 MG tablet 500 mg PO BID ascorbic acid (vitamin C) 1,000 mg tablet 1 g PO BID medroxyprogesterone [Provera] 2.5 MG tablet 2.5 mg PO DAILY duloxetine [Cymbalta] 60 mg capsule,delayed release(DR/EC) 60 mg PO BID quetiapine 50 mg tablet 50 mg PO QPM Patient Comments: TAKE ONE TABLET BY MOUTH EVERY EVENING trazodone 100 mg tablet 200 mg PO HS Patient Comments: TAKE 2 TABLETS BY MOUTH EVERY NIGHT morphine concentrate 20 mg/mL syringe 10 mg sublingual ONCE ipratropium-albuterol 0.5 mg-3 mg(2.5 mg base)/3 mL solution for nebulization 3 ml INHALATION TID levofloxacin 750 mg tablet 750 mg PO DAILY Qty: 10 0RF potassium chloride 20 MEQ tablet,ER particles/crystals 20 meq PO TID Rx Instructions: 20 MG PO TID DIRECTED fluticasone propionate 50 mcg/actuation spray,suspension 1 spray INTRANASAL BID Patient Comments: SPRAY ONE SPRAY IN EACH NOSTRIL TWICE A DAY Rx Instructions: ONE SPRAY EACH NOSTRIL BID morphine 30 mg tablet extended release 30 mg PO Q8H MDD 45 calcitonin (salmon) 200 unit/actuation [place],Non-Aerosol 1 spray NS DAILY Rx Instructions: 1 spray in left nostril daily- alternate nostrils every other day albuterol sulfate [Ventolin HFA] 90 mcg/actuation Hfa Aerosol Inhaler 2 puff inhalation TID midodrine 5 mg tablet 5 mg PO TID pregabalin 75 mg capsule 75 mg PO TID hydromorphone 2 mg tablet 2 mg PO HS MDD 1 Rx Instructions: Hold if patient refuses or staff feels she is somulent L.acidoph,saliva-B.bif-S.therm [Acidophilus Probiotic Blend] 175 mg capsule 1 cap PO DAILY cyclosporine 0.05 % Dropperette 1 drp OU BID pantoprazole 40 mg tablet,delayed release (DR/EC) 40 mg PO QAM amoxicillin-pot clavulanate 875-125 mg tablet 1 tab PO BID Discontinued enoxaparin 40 mg/0.4 mL syringe 40 mg subcut Q24H Discharge Instructions Activity:: Activity as Tolerated Equipment/Supplies:: No Equipment Needed Diet:: As Tolerated Discharge Orders Discharge Orders: Discharge Order (Routine); Ordered 06/25/24 Ordered By: Setfan Montilla DS: Summary Time Spent with Patient providing and/or coordinating discharge services: Greater than 30 minutes Status at Discharge Functional status at discharge: independent ambulation Overall status at discharge: patient is back to baseline Mental Status: mental status grossly normal Speech and Movement: speech and movement normal Mood: congruent mood Affect: normal affect Quality:SDOH Health Related Social Needs: Health related social needs details Pt is a resident a t the [facility] in [place]. Health related social needs details: Pt is a resident at the [facility] in [place]. Exam Narrative Exam Narrative: Well-appearing but chronically ill older female laying in bed in no acute distress, ANO x 4, heart regular rhythm, lungs diffuse coarse breath sounds with good air movement throughout, abdomen soft, nontender, nondistended Psych Mental Status: mental status grossly normal Speech and Movement: speech and movement normal Mood: congruent mood Affect: normal affect DS: Data Vitals/I&O Vitals and I&O: Vital Signs Temperature 96.3 F L 06/25/24 07:51 Temperature Source Temporal Artery Scan 06/25/24 07:51 Pulse 94 H 06/25/24 08:29 Pulse Rhythm Regular 06/20/24 18:06 Pulse 93 H 06/20/24 17:21 Respiratory Rate 18 06/25/24 08:24 Respiratory Effort Non-Labored 06/20/24 18:06 Respiratory Depth Normal 06/20/24 18:06 Respiratory Pattern Normal 06/20/24 18:06 Blood Pressure 136/84 06/25/24 07:51 Blood Pressure Mean 90 06/20/24 17:15 Blood Pressure Position Sitting 06/20/24 06:55 Pulse Oximetry 92 06/25/24 08:24 Oxygen Delivery Method Room Air 06/25/24 08:24 Oxygen Flow Rate 0 06/25/24 08:24 Fraction of Inspired Oxygen (FIO2) 28 06/21/24 08:30 Pain Level 8 06/24/24 15:02 Comment RN Notified 06/25/24 02:55 Intake & Output 06/24/24 06/25/24 06/25/24 17:59 05:59 17:59 Intake Total 1200 / 1200 250 / 1450 Output Total 300 / 300 Balance 900 / 900 250 / 1150 Weight 178 lb 9.191 oz 173 lb 1.006 oz Intake: IV Oral 1200 / 1200 240 / 1440 Output: Urine 300 / 300 Other: Urine Color Yellow Yellow Urine Odor None Normal Comment incontinent of large amount of urine as well. Device, canister, and tubing changed at this time. patient's brief dry at this time Stool Size Large Stool Characteristics Soft Liquid Brown Brown Green Green PFSH All Active Problems (Updated 06/24/24 @ 07:34 by Chrissy Carrasquillo MD, DC) ACP (advance care planning) (Acute) Acute on chronic respiratory failure with hypoxia and hypercapnia (Acute) Altered mental status (Acute) Recurrent pneumonia (Acute) Sepsis (Acute) Displaced intertrochanteric fracture of left femur, subsequent encounter for closed fracture with malunion (Acute) Medical History (Updated 06/24/24 @ 07:34 by Chrissy Carrasquillo MD, DC) Depression Onychomycosis Ataxia Rhabdomyolysis (09/22/14) Alcohol withdrawal delirium (09/22/14) Anemia H/O fall Housing or economic circumstance (09/22/14) a. No heat for 1-1/2 days Dehydration, mild (09/22/14) Irritable bowel syndrome Hiatal hernia Gastroesophageal reflux disease DJD (degenerative joint disease) Fibromyalgia Hyperlipidemia Allergic rhinitis Fall (09/22/14) a. 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 coli UTI DNR (do not resuscitate) Seasonal allergies Community acquired pneumonia Skin ulcer Acute UTI Interstitial lung disease secondary to chronic aspiration Left hip pain Lung disease Pain due to internal orthopedic prosthetic device Chronic hypoxic respiratory failure Respiratory failure Nail dystrophy Sepsis associated hypotension Pneumonia Chronic pain Pneumonia Non-sustained ventricular tachycardia Hypotension Intertrochanteric fracture of left femur S/P IM FIXATION 01/01/24 Insomnia Frequent falls Alcohol withdrawal NSIP (nonspecific interstitial pneumonia) Fracture of right inferior pubic ramus Fracture of right superior pubic ramus Laceration of skin of right forearm Skin ulcer of lower leg Laceration of arm, right, complicated Fractured pelvis T12 compression fracture Acute exacerbation of chronic low back pain Fall Person living alone (09/22/14) Hiatal hernia IBS (irritable bowel syndrome) Hypertension Allergic rhinitis GERD (gastroesophageal reflux disease) DJD (degenerative joint disease) Hyperlipidemia Hypercholesterolemia Fibromyalgia Depression Anemia Alcohol abuse Insomnia Surgical History (Updated 06/21/24 @ 19:15 by Manohar Boyce MD) History of surgery a. S/P open right ankle fracture/dislocation. b. Left knee arthroscopy. c. Right wrist fracture repair. d. T/A as a child. Tonsillectomy and adenoidectomy Repair fracture right wrist ORIF right ankle Colonoscopy - MAC (11/18/16) Arthroplasty of knee left Family History Mother Dementia Maternal Aunt Diabetes Social History Smoking/Tobacco Use Status: Former Tobacco Use Smoking risk assessment performed?: Yes Alcohol Intake: current Alcohol Intake frequency: 0-2 drinks per day Alcohol type: wine Counseling given: Yes Details: 1-2 bottle of wine/day Drug use: Current Sobriety Substance use type: does not use and marijuana Details: two tokes for sleep Housing: correction Do you feel safe at home: Yes Do you feel safe in your relationship?: Yes Additional Social history: LIVES AT [facility] Time Spent with Patient Time Spent with Patient: <45 minutes Time was spent: preparing to see the patient(eg.review tests), obtaining and/or reviewing separately otained hiistory, ordering medications,tests, procedures, referring, communicating with other health wound care nurse, indepentently interpreting results, counseling the patient and care coordination
[2024-06-25 11:31] VITALS: BP 133/83; PULSE 97; RESP 18; TEMP 37; O2SAT 95
[2024-06-25] MEDS: Fluticasone NASAL SPRAY 16 GM BTL NS (12:08)
[2024-06-25] MEDS: Calcitonin-Salmon, Synthetic 3.7 ML BTL NS (12:08)
--- NOTE | 2024-06-25 13:07 | NUR.NOTE ---
Nursing Note: Handoff to MYRTLE Ochoa to the [facility].
== END 2024-06-25 12:22 | disposition skilled nursing facility (03) | DRG 871 ==
LOC: ER 07:23 → EDHOLD 09:02 → MS 17:50
PROVIDERS: Family Medicine; Admitting Provider Family Medicine; Emergency Provider Emergency Medicine; PCP Family Medicine; Visit Provider Family Medicine
DX: J15.0 Pneumonia due to Klebsiella pneumoniae (principal); J96.21 Acute and chronic respiratory failure with hypoxia; J96.22 Acute and chronic respiratory failure with hypercapnia; S72.142P Displaced intertrochanteric fracture of left femur, subsequent encounter for closed fracture with malunion; J44.0 Chronic obstructive pulmonary disease with (acute) lower respiratory infection; A41.9 Sepsis, unspecified organism; E86.1 Hypovolemia; G89.4 Chronic pain syndrome; F32.89 Other specified depressive episodes; J84.89 Other specified interstitial pulmonary diseases; K58.9 Irritable bowel syndrome, unspecified; D64.9 Anemia, unspecified; Z91.81 History of falling; K21.9 Gastro-esophageal reflux disease without esophagitis; I10 Essential (primary) hypertension; E78.00 Pure hypercholesterolemia, unspecified; F10.10 Alcohol abuse, uncomplicated; G47.00 Insomnia, unspecified; R41.0 Disorientation, unspecified; Z66 Do not resuscitate
CPT/HCPCS: 00123; 36415; 80048; 80053; 82805; 85027; 87040; 87077; 87637; 87641; 93005; 96365; 96366; 96367; 97110; 97530; 99285; J1650; 71045; 80202; 81003; 81015; 83735; 84484; 85025; 87070; 87086; 87186; 87205; 93010; 94640; 94667; 94668; 94760; 99223; 99231; 99232; 99233; 99239; J2183; J2543; J3370; J3372; J7620

== ENCOUNTER 2024-07-03 19:50 | Inpatient (IN) | payer MEDICARE, MEDICAID, SELFPAY ==
[2024-07-03] VITALS (145 sets, daily range): BP systolic 57–138; BP diastolic 23–79; PULSE 80–136; RESP 11–33; TEMP 36.8–37.7; O2SAT 77–98
--- NOTE | 2024-07-03 19:45 | DI.RAD_ITS ---
Exam(s) XR PORTABLE CHEST AP EXAM: XR PORTABLE CHEST AP CLINICAL HISTORY: cough TECHNIQUE: 2D digital imaging was performed. COMPARISON: CR XR CHEST 2V PA LATERAL from 03/29/2024 CR XR CHEST 2V PA LATERAL from 05/17/2024 CR XR PORTABLE CHEST AP POST LINE from 05/27/[address] CHEST/ABD/PEL W from 06/06/2024 CR,XR XR PORTABLE CHEST AP from 06/20/2024 FINDINGS: Limited by overlying monitoring leads, oxygen tubing, poor pulmonary inflation as well as under pene tration. The patient's chin overlies the apices. LUNGS: Compared with the prior exam, there is increased density seen in the right lower lung field. There also increased interstitial markings which show appear greater on the right and appear chronic. Tiny bilateral pleural effusions. HEART: Grossly normal size. AORTA: Tortuous. BONES: Severe degenerative changes in the shoulders and spine. Old right proximal humeral fracture. Soft tissues: Unremarkable. IMPRESSION: Right lower lobe consolidation. Chronic interstitial changes. Tiny bilateral pleural effusions. DATA REPOSITORY: RADIATION DOSE DELIVERED:
--- NOTE | 2024-07-03 20:01 | ED.GENADUL_ITS ---
Discharge Plan Disposition Patient Disposition: Admit to [facility] Condition: Improving Discharge Details Clinical Impression: Aspiration into airway Primary Care Provider: Iesha Leary ED Provider: Manohar Trejo [place] Meds and New Rx's Prescriptions: No Action Balanced B-100 Complex 100 mg tablet extended release 1 tab PO DAILY vitamin A 2,400 mcg capsule 2,400 mcg PO DAILY PRN ginkgo biloba 40 mg tablet 240 mg PO DAILY PRN Rx Instructions: give with meal/snack magnesium 250 mg tablet 500 mg PO BID zinc acetate 25 mg (zinc) capsule 100 mg PO BID vitamin E (dl, acetate) 45 mg (100 unit) capsule 180 mg PO DAILY loratadine [Allergy Relief (loratadine)] 10 mg tablet 10 mg PO DAILY polyethylene glycol 3350 17 gram/dose powder 17 g PO DAILY Neuriva Original 100-100 mg capsule 1 cap PO DAILY PRN calcium carbonate [Tums Ultra] 400 mg calcium (1,000 mg) tablet,chewable 2,000 mg PO DAILY PRN Rx Instructions: take 2 tablets (2000mg) by mouth daily *patient will supply sucralfate 1 gram tablet 1 g PO TID bisacodyl 10 mg suppository 10 mg CA DAILY PRN multivitamin Tablet 1 tab PO DAILY benzonatate 100 mg capsule 100 mg PO BID montelukast 10 mg tablet 10 mg PO DAILY Qty: 90 4RF ferrous sulfate 325 MG tablet 325 mg PO TID cholecalciferol (vitamin D3) [Vitamin D3] 400 UNIT tablet 50 mcg PO DAILY glucosamine sulfate 2KCl 1,000 MG tablet 500 mg PO BID ascorbic acid (vitamin C) 1,000 mg tablet 1 g PO BID duloxetine [Cymbalta] 60 mg capsule,delayed release(DR/EC) 60 mg PO BID quetiapine 50 mg tablet 50 mg PO QPM Patient Comments: TAKE ONE TABLET BY MOUTH EVERY EVENING trazodone 100 mg tablet 200 mg PO HS Patient Comments: TAKE 2 TABLETS BY MOUTH EVERY NIGHT morphine concentrate 20 mg/mL syringe 10 mg sublingual ONCE ipratropium-albuterol 0.5 mg-3 mg(2.5 mg base)/3 mL solution for nebulization 3 ml INHALATION TID potassium chloride 20 MEQ tablet,ER particles/crystals 20 meq PO TID Rx Instructions: 20 MG PO TID DIRECTED fluticasone propionate 50 mcg/actuation spray,suspension 1 spray INTRANASAL BID Patient Comments: SPRAY ONE SPRAY IN EACH NOSTRIL TWICE A DAY Rx Instructions: ONE SPRAY EACH NOSTRIL BID morphine 30 mg tablet extended release 30 mg PO Q8H MDD 45 calcitonin (salmon) 200 unit/actuation [place],Non-Aerosol 1 spray NS DAILY Rx Instructions: 1 spray in left nostril daily- alternate nostrils every other day albuterol sulfate [Ventolin HFA] 90 mcg/actuation Hfa Aerosol Inhaler 2 puff inhalation TID midodrine 5 mg tablet 5 mg PO TID pregabalin 75 mg capsule 75 mg PO TID hydromorphone 2 mg tablet 2 mg PO HS MDD 1 Rx Instructions: Hold if patient refuses or staff feels she is somulent L.acidoph,saliva-B.bif-S.therm [Acidophilus Probiotic Blend] 175 mg capsule 1 cap PO DAILY cyclosporine 0.05 % Dropperette 1 drp OU BID pantoprazole 40 mg tablet,delayed release (DR/EC) 40 mg PO QAM cefpodoxime 200 mg tablet 200 mg PO BID potassium chloride 10 mEq capsule, extended release budesonide 0.5 mg/2 mL suspension for nebulization 0.5 mg inhalation DAILY naloxone 4 mg/actuation spray,non-aerosol 4 mg intranasal Q2-3M PRN Rx Instructions: spray 1 dose into ONE nostril; alternate nostrils w each dose until help arrives HPI General Mode of arrival: EMS . Date/Time Provider Initiated Documentation: 07/03/24 19:59 . Limitations to Documentation: no limitations . Information obtained by: patient . History of Present Illness 83 year old F presents to the emergency department with the chief complaint of dyspnea, decrease loc , Patient started experiencing this hour(s) (3) and it has been now resolved (decreased level of consciousness resolved). No relieving factors improve symptom(s), No exacerbating factors reported . Patient notes cough and shortness of breath. Related Data Home Medications ?Medication ?Instructions ?Recorded ?Confirmed cholecalciferol (vitamin D3) 10 50 mcg PO DAILY 12/06/13 07/03/24 mcg (400 unit) tablet (Vitamin D3) ferrous sulfate 325 mg (65 mg 325 mg PO TID 12/06/13 07/03/24 iron) tablet glucosamine sulfate 2KCl 1,000 mg 500 mg PO BID 12/06/13 07/03/24 tablet potassium chloride 20 mEq 20 meq PO TID 11/25/16 07/03/24 tablet,extended release(part/cryst) fluticasone propionate 50 1 spray intranasal BID 09/19/20 07/03/24 mcg/actuation nasal spray,suspension quetiapine 50 mg tablet 50 mg PO QPM 03/19/22 07/03/24 trazodone 100 mg tablet 200 mg PO HS 03/19/22 07/03/24 ginkgo biloba 40 mg tablet 240 mg PO DAILY PRN 10/18/23 07/03/24 magnesium 250 mg tablet 500 mg PO BID 10/18/23 07/03/24 vit B complex 100 combo no.2 100 1 tab PO DAILY 10/18/23 07/03/24 mg tablet,extended release (Balanced B-100 Complex) vitamin A 2,400 mcg capsule 2,400 mcg PO DAILY PRN 10/18/23 07/03/24 vitamin E (dl, acetate) 45 mg (100 180 mg PO DAILY 10/18/23 07/03/24 unit) capsule zinc acetate 25 mg (zinc) capsule 100 mg PO BID 10/18/23 07/03/24 ascorbic acid (vitamin C) 1,000 mg 1 g PO BID 01/23/24 07/03/24 tablet loratadine 10 mg tablet (Allergy 10 mg PO DAILY 01/23/24 07/03/24 Relief (loratadine)) duloxetine 60 mg capsule,delayed 60 mg PO BID 03/20/24 07/03/24 release (Cymbalta) calcium carbonate (Tums Ultra) 2,000 mg PO DAILY PRN 04/09/24 07/03/24 coffee extract 100 mg-phosphatidyl 1 cap PO DAILY PRN 04/09/24 07/03/24 serine 100 mg capsule (Neuriva Original) polyethylene glycol 3350 17 17 g PO DAILY 04/09/24 07/03/24 gram/dose oral powder benzonatate 100 mg capsule 100 mg PO BID 04/29/24 07/03/24 bisacodyl 10 mg rectal suppository 10 mg CA DAILY PRN 04/29/24 07/03/24 multivitamin 1 tab PO DAILY 04/29/24 07/03/24 montelukast 10 mg tablet 10 mg PO DAILY #90 tabs 05/02/24 07/03/24 sucralfate 1 gram tablet 1 g PO TID 05/13/24 07/03/24 albuterol sulfate 90 mcg/actuation 2 puff inhalation TID 05/17/24 07/03/24 aerosol inhaler (Ventolin HFA) calcitonin (salmon) 200 1 spray NS DAILY 05/17/24 07/03/24 unit/actuation nasal spray midodrine 5 mg tablet 5 mg PO TID 05/17/24 07/03/24 morphine 30 mg tablet,extended 30 mg PO Q8H 05/17/24 07/03/24 release hydromorphone 2 mg tablet 2 mg PO HS pain 05/18/24 07/03/24 pregabalin 75 mg capsule 75 mg PO TID 05/18/24 07/03/24 ipratropium 0.5 mg-albuterol 3 mg 3 ml inhalation TID 05/27/24 07/03/24 (2.5 mg base)/3 mL nebulization soln morphine concentrate 20 mg/mL oral 10 mg sublingual ONCE 05/27/24 06/20/24 syringe (FOR ORAL USE ONLY) L.acidophil,salivari-Bifido 1 cap PO DAILY 06/06/24 07/03/24 bifidum-Strep thermoph 175 mg capsule (Acidophilus Probiotic Blend) cyclosporine 0.05 % eye drops in a 1 drp OU BID 06/06/24 07/03/24 dropperette pantoprazole 40 mg tablet,delayed 40 mg PO QAM 06/20/24 07/03/24 release budesonide 0.5 mg/2 mL suspension 0.5 mg inhalation DAILY 07/03/24 07/03/24 for nebulization cefpodoxime 200 mg tablet 200 mg PO BID 07/03/24 07/03/24 naloxone 4 mg/actuation nasal spray 4 mg intranasal Q2-3M PRN 07/03/24 07/03/24 potassium chloride 10 mEq meq 07/03/24 capsule,extended release Previous Rx's ?Medication ?Instructions ?Recorded montelukast 10 mg tablet 10 mg PO DAILY #90 tabs 05/02/24 Allergies Allergy/AdvReac Type Severity Reaction Status Date / Time fentanyl AdvReac Nausea Verified 07/03/24 20:18 General Stated Complaint: GenMedical MELISSA: 3 Review of Systems All systems reviewed & are unremarkable except as noted in HPI and below Constitutional Constitutional: Denies chills and Denies fever(s) Cardiovascular Cardiovascular: Denies chest pain and Reports dyspnea Respiratory Respiratory: Reports cough and Reports dyspnea Gastrointestinal Gastrointestinal: Denies abdominal pain, Denies nausea and Denies vomiting Genitourinary Genitourinary: Denies dysuria Integumentary/Breasts Skin/Breast: Denies rash Exam Const General: no acute distress Orientation: alert [facility] Head: normal to inspection Ears: external ears normal General nose exam: external nose normal Mouth: moist mucous membranes Eyes General: appearance normal, both eyes and all related structures Neck Neck: normal visual inspection Resp Auscultation: rhonchi Cardio Rate: regular rate Skin General skin exam: no rashes or lesions noted Neuro General: patient alert and patient oriented x3 Extrem General: normal to inspection Psych Mental Status: mental status grossly normal Course Vital Signs Vital signs: Vital Signs Temperature 37.7 C H 07/03/24 19:50 Pulse 93 H 07/03/24 19:50 Respiratory Rate 18 07/03/24 19:50 Blood Pressure 138/79 07/03/24 19:50 Pulse Oximetry 96 07/03/24 19:50 Temperature 37.7 C H 07/03/24 19:50 Temperature Source Oral 07/03/24 19:50 Pulse 93 H 07/03/24 19:50 Respiratory Rate 18 07/03/24 19:50 Blood Pressure 138/79 07/03/24 19:50 Blood Pressure Position Sitting 07/03/24 19:50 Pulse Oximetry 96 07/03/24 19:50 Oxygen Delivery Method OxyMask 07/03/24 19:50 Oxygen Flow Rate 5 07/03/24 19:50 Pain Level 0 07/03/24 19:50 Medical Decision Making 83-year-old female with a history of history of interstitial lung disease chronically on oxygen and recent admissions for recurrent pneumonias comes in from local senior care with an episode of decreased responsiveness after she h ad morphine. She apparently also had some cough and shortness of breath so EMS was called. EMS arrived she was alert and oriented, they noted a temp of 100.1 when they arrived. He is currently alert oriented x 4 on arrival. She does seem fatigued. She denies any chest pain. She says when she is at rest she has no shortness of breath. She has an intermittent wet sounding cough. She is currently on 4 L supplemental oxygen normally is on 200 close O2 sats ranged from 90-95 percent. She denies any abdominal pain, vomiting. On lung exam she does have rhonchi at the bases bilaterally. I suspect recurrent aspiration versus pneumonia and likely had a side effect of the morphine with the decreased responsiveness that has resolved. She is DNR/DNI, would not want significant interventions but would want blood work and if indicated antibiotics. Will check a CBC CMP procalcitonin and obtain chest x-ray and treat her lung exam findings with DuoNeb and methylprednisolone and reassess. Patient stable although still requiring increased oxygen and has diffuse rhonchi. Labs unremarkable, suspected small pleural effusions bilaterally with blunting of the costophrenic angles and right lower lobe consolidation, aspiration versus pneumonia. Suspect aspiration pneumonitis versus aspiration pneumonia. Given she is still diffusely rhonchorous I am going to order another DuoNeb and discussed with hospitalist about admission and discussed antibiotic selection. Spoke with Dr. Qiu discussed case and will give a dose of ceftriaxone to cover for peers and given normal white count and Procalcitonin and likely HCAP. Differential Diagnosis Differential Diagnosis: Opiate side effect, COPD, pneumonia, aspiration Lab Data Lab results reviewed: Yes I reviewed the patient's lab results. Quality:SDOH Health Related Social Needs: Health related social needs details Pt is a resident a t [facility] in [place]. PFSH All Active Problems (Updated 07/03/24 @ 21:12 by Manohar Trejo MD) Aspiration into airway (Acute) ACP (advance care planning) (Acute) Recurrent pneumonia (Acute) Displaced intertrochanteric fracture of left femur, subsequent encounter for closed fracture with malunion (Acute) Medical History (Updated 07/03/24 @ 21:12 by Manohar Trejo MD) Depression Onychomycosis Ataxia Rhabdomyolysis (09/22/14) Alcohol withdrawal delirium (09/22/14) Anemia H/O fall Housing or economic circumstance (09/22/14) a. No heat for 1-1/2 days Dehydration, mild (09/22/14) Irritable bowel syndrome Hiatal hernia Gastroesophageal reflux disease DJD (degenerative joint disease) Fibromyalgia Hyperlipidemia Allergic rhinitis Fall (09/22/14) a. 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 coli UTI DNR (do not resuscitate) Seasonal allergies Community acquired pneumonia Skin ulcer Acute UTI Interstitial lung disease secondary to chronic aspiration Left hip pain Lung disease Pain due to internal orthopedic prosthetic device Chronic hypoxic respiratory failure Respiratory failure Nail dystrophy Sepsis associated hypotension Pneumonia Chronic pain Pneumonia Non-sustained ventricular tachycardia Hypotension Intertrochanteric fracture of left femur S/P IM FIXATION 01/01/24 Insomnia Frequent falls Alcohol withdrawal NSIP (nonspecific interstitial pneumonia) Fracture of right inferior pubic ramus Fracture of right superior pubic ramus Laceration of skin of right forearm Skin ulcer of lower leg Laceration of arm, right, complicated Fractured pelvis T12 compression fracture Acute exacerbation of chronic low back pain Fall Person living alone (09/22/14) Hiatal hernia IBS (irritable bowel syndrome) Hypertension Allergic rhinitis GERD (gastroesophageal reflux disease) DJD (degenerative joint disease) Hyperlipidemia Hypercholesterolemia Fibromyalgia Depression Anemia Alcohol abuse Insomnia Surgical History (Updated 06/21/24 @ 19:15 by Manohar Boyce MD) History of surgery a. S/P open right ankle fracture/dislocation. b. Left knee arthroscopy. c. Right wrist fracture repair. d. T/A as a child. Tonsillectomy and adenoidectomy Repair fracture right wrist ORIF right ankle Colonoscopy - MAC (11/18/16) Arthroplasty of knee left Family History Mother Dementia Maternal Aunt Diabetes Social History Smoking/Tobacco Use Status: Former Tobacco Use Smoking risk assessment performed?: Yes Alcohol Intake: current Alcohol Intake frequency: 0-2 drinks per day Alcohol type: wine Counseling given: Yes Details: 1-2 bottle of wine/day Drug use: Current Sobriety Substance use type: does not use and marijuana Details: two tokes for sleep Housing: senior care Do you feel safe at home: Yes Do you feel safe in your relationship?: Yes Additional Social history: LIVES AT [facility]
[2024-07-03] MEDS: methylPREDNISolone SUCC 125 MG VIAL IVP (20:14)
[2024-07-03] MEDS: Albuterol/Ipratropium 3 ML UPD VIAL UPD ×2 (20:14→21:26)
[2024-07-03 20:23] LABS: Abs Immature Grans 0.04 10^3/uL (0.0-0.06); Absolute Basophil Count 0.02 10^3/uL (0.0-0.2); Absolute Eosinophil Count 0.71 10^3/uL (0.0-0.7); Absolute Lymphocyte Count 1.18 10^3/uL (1.2-3.4); Absolute Monocyte Count 0.95 10^3/uL (0.1-0.8); Absolute Neutrophil Count 6.37 10^3/uL (1.2-6.7); Basophils % 0.2 %; Eosinophils % 7.7 %; HCT 33.5 % (36.0-46.0); Immature Grans % 0.4 %; Lymphocytes % 12.7 %; MCH 28.2 pg (27.0-33.0); MCHC 29.9 % (32.0-36.0); MCV 94 fL (80-95); MPV 11.1 fL (8.0-11.0); Monocytes % 10.2 %; Neutrophils % 68.8 %; Platelet Count 277 10^3/uL (130-400); RBC 3.55 10^6/uL (3.93-5.22); RDW 15.3 % (11.7-14.6); RDW-SD 53.3 fL; WBC 9.27 10^3/uL (4.4-10.8)
[2024-07-03 20:43] LABS: ALT 30 U/L (14-59); AST 36 U/L (15-37); Albumin 2.3 g/dL (3.4-5.0); Alkaline Phosphatase 118 U/L (46-116); Anion Gap 3.8 mmol/L (3-11); BUN 15 mg/dL (7-18); Bilirubin, Total 0.47 mg/dL (0.2-1.0); CO2 36.2 mmol/L (21.0-32.0); CREATININE 0.7 mg/dL (0.55-1.02); Calcium 9.6 mg/dL (8.5-10.1); Chloride 102 mmol/L (98-107); Estimated GFR 85.76 (mL/min/1.73m2); Glucose 96 mg/dL (74-106); Magnesium 1.8 mg/dL (1.8-2.4); Potassium 4.8 mmol/L (3.5-5.1); Sodium 142 mmol/L (136-145)
[2024-07-03 20:57] LABS: Procalcitonin < 0.10 ng/mL
--- NOTE | 2024-07-03 21:01 | DI.VRAD_ITS ---
PROCEDURE INFORMATION: Exam: XR Chest Exam date and time: 07/03/2024 8:25 PM Age: 83 years old Clinical indication: Cough TECHNIQUE: Imaging protocol: Radiologic exam of the chest. Views: 1 view. COMPARISON: CR XR PORTABLE CHEST AP 06/20/2024 6:28 AM FINDINGS: Limitations: The examination is underpenetrated. The patient's chin and an oxygen mask partially obscure the left apex. Imaging was obtained at relatively low lung volumes. Lungs: There is diffusely increased opacity over the right hemithorax. There is a focally increased opacity over the right lower lung zone. Pleural spaces: There is blunting of the costophrenic angles bilaterally. No pneumothorax is seen. Heart/Mediastinum: The heart is partially obscured but appears normal in size. Bones/joints: There is an old fracture through the right humeral neck. There is severe degenerative change at the right shoulder joint. There is mild-moderate degenerative change at the left shoulder joint. There are large osteophytes along the thoracic spinal margin. IMPRESSION: 1. Suspected right pleural effusion. Possible small left pleural effusion. 2. Diffusely increased opacity over the right hemithorax with more focally increased opacity over the right lower lung zone suspicious for pulmonary consolidation in the setting of pneumonia or aspiration. Clinical correlation is recommended. Dictated and Authenticated by: Javier Longoria MD. Ordering:LATESHA Villela MD
[2024-07-03 21:34] LABS: COVID-19 PCR Negative (Negative); Influenza A PCR Negative (Negative); Influenza B PCR Negative (Negative); RSV PCR Negative (Negative)
[2024-07-03 21:37] LABS: Source NASOPHARYNX
[2024-07-03] MEDS: Midodrine 2.5 MG TAB 5 MG PO (21:37)
[2024-07-03] MEDS: cefTRIAXone 2 GM/50 ML BAG IVPB (21:53)
--- NOTE | 2024-07-03 23:13 | W.PM.HP.N ---
Date of service: 07/03/24 Time of Service: 23:13 Assessment and Plan Assessment and plan (1) Recurrent pneumonia: Status: Acute Assessment and plan: I agree with impression that this is likely aspiration given the history we have of an acute change associated with some mental status depression and her known history. For now given recent hospitalizations will treat with cefepime. Recent cultures reviewed and no resistant organisms. MRSA swab sent, add vancomycin if positive Procalcitonin low. This could be repeated in 48 hours and antibiotics stopped if clinically back to baseline suggesting pneumonitis rather than pneumonia. (2) Aspiration into airway: Status: Acute Assessment and plan: As above. A/w polypharmacy with sedating medications. She has had SH[facility]TLE [facility] evaluations at recent admissions, swallowing liquids fine for me so not a chronic issue. It is possible this episode related to addition of liquid morphine to other opioids, but this isn't clear. Qualifiers: Encounter type: initial encounter Qualified Code(s): T17.908A - Unspecified foreign body in respiratory tract, part unspecified causing other injury, initial encounter (3) Acute and chronic respiratory failure with hypoxia: Status: Acute Assessment and plan: Secondary to above, requiring 3 liters oxygen after event, above her chronic 2 liters. (4) Hypotension: Assessment and plan: She has had some low BPs, but BP was normal during my evaluation. She has chornic low BPs and is on midodrine. I don't think given the pattern that this is sepsis, but covering with cefepime and monitor in ICU overnight in case she becomes unstable. Qualifiers: Hypotension type: hypotension due to hypovolemia Qualified Code(s): E86.1 - Hypovolemia (5) DVT prophylaxis: Status: Acute Assessment and plan: enoxaparin (6) ACP (advance care planning): Status: Acute Assessment and plan: [facility]. She has been working with palliative care. Will consult for continuity. She is DNR/DNI History of Present Illness History of Present Illness Chief Complaint: cough, short of breath Narrative: 83 yo F with history of chronic hypoxic respiratory failure on 2 liters home oxygen, ILD associated with chronic aspiration, with 4 admissions in the past two months for recurrent right sided pneumonias most recently 06/20 to 06/25 who was sent from the [facility] with respiratory distress after an episode of decreased responsiveness at the [facility]. The patient is unable to relate a linear history, mentions she gets episodes like seizures but doesn't remember what happened this afternoon/evening. (No seizure-like activity was witnessed, no known history of seizures). Per report from [facility] she was found to be minimally responsive for a period of time, nasal naloxone given without effect. This was around 7pm. When EMS arrived she was alert and oriented. Temperature was 100.1. At that time increased respiratory distress and cough were noted and she was brought to the ED. The patient feels a little lightheaded when she tries to sit up but but no fevers/chills. She is thirsty, mouth feels dry. She denies chest, abdominal, or other pain. She has had no dysuria or bowel changes, no nasal congestion or other cold symptoms. Of note there is a new form of morphine liquid on her list since her discharge 06/25. There is an unfinished note from Dr. Carrasquillo from palliative care today. Review of Systems All systems reviewed & are unremarkable except as noted in HPI and below Constitutional Constitutional: Reports as per HPI, Reports fatigue, Denies headache(s) and Denies weight gain ENT Ears, Nose, Mouth, and Throat: Denies headache(s) Respiratory Respiratory: Denies hemoptysis and Denies wheezing Gastrointestinal Gastrointestinal: Denies diarrhea, Denies nausea and Denies vomiting Integumentary/Breasts Skin/Breast: Denies rash and Denies sores Neurologic Neurologic: Denies headache(s) Endocrine Endocrine: Reports fatigue Allergic/Immunologic Allergic/Immunologic: Denies wheezing PFSH All Active Problems (Updated 07/03/24 @ 23:52 by Audie Richmond) DVT prophylaxis (Acute) Acute and chronic respiratory failure with hypoxia (Acute) Aspiration into airway (Acute) Recurrent pneumonia (Acute) ACP (advance care planning) (Acute) Displaced intertrochanteric fracture of left femur, subsequent encounter for closed fracture with malunion (Acute) Medical History Chronic pain Pneumonia Sepsis associated hypotension Nail dystrophy Non-sustained ventricular tachycardia Respiratory failure Pneumonia Chronic hypoxic respiratory failure Pain due to internal orthopedic prosthetic device Lung disease Left hip pain Seasonal allergies Hypotension Intertrochanteric fracture of left femur S/P IM FIXATION 01/01/24 Acute UTI Skin ulcer DNR (do not resuscitate) 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 No heat for 1-1/2 days Dehydration, mild (09/22/14) Irritable bowel syndrome Hiatal hernia Gastroesophageal reflux disease Insomnia DJD (degenerative joint disease) Fibromyalgia Hyperlipidemia Allergic rhinitis Morbid obesity Fall (09/22/14) a. fell down and could not get up Frequent falls Alcohol withdrawal NSIP (nonspecific interstitial pneumonia) Fracture of right inferior pubic ramus Fracture of right superior pubic ramus Laceration of skin of right forearm Skin ulcer of lower leg Laceration of arm, right, complicated Fractured pelvis T12 compression fracture Acute exacerbation of chronic low back pain Fall Hiatal hernia IBS (irritable bowel syndrome) Hypertension Allergic rhinitis GERD (gastroesophageal reflux disease) DJD (degenerative joint disease) Hyperlipidemia Hypercholesterolemia Fibromyalgia Depression Anemia Alcohol abuse Insomnia Person living alone (09/22/14) Surgical History History of surgery a. S/P open right ankle fracture/dislocation. b. Left knee arthroscopy. c. Right wrist fracture repair. d. T/A as a child. Tonsillectomy and adenoidectomy Repair fracture right wrist ORIF right ankle Colonoscopy - MAC (11/18/16) Arthroplasty of knee left Family History Mother Dementia Maternal Aunt Diabetes Social History Smoking/Tobacco Use Status: Former Tobacco Use Smoking risk assessment performed?: Yes Alcohol Intake: current Alcohol Intake frequency: 0-2 drinks per day Alcohol type: wine Counseling given: Yes Details: 1-2 bottle of wine/day Drug use: Current Sobriety Substance use type: does not use and marijuana Details: two tokes for sleep Housing: alf Do you feel safe at home: Yes Do you feel safe in your relationship?: Yes Additional Social history: LIVES AT [facility] Allergies and Home Medications Allergies Allergy/AdvReac Type Severity Reaction Status Date / Time fentanyl AdvReac Nausea Verified 07/03/24 20:18 Home Medications ?Medication ?Instructions ?Recorded ?Confirmed ?Type cholecalciferol (vitamin D3) 10 50 mcg PO DAILY 12/06/13 07/03/24 History mcg (400 unit) tablet (Vitamin D3) ferrous sulfate 325 mg (65 mg 325 mg PO TID 12/06/13 07/03/24 History iron) tablet glucosamine sulfate 2KCl 1,000 mg 500 mg PO BID 12/06/13 07/03/24 History tablet potassium chloride 20 mEq 20 meq PO TID 11/25/16 07/03/24 History tablet,extended release(part/cryst) fluticasone propionate 50 1 spray intranasal BID 09/19/20 07/03/24 History mcg/actuation nasal spray,suspension quetiapine 50 mg tablet 50 mg PO QPM 03/19/22 07/03/24 History trazodone 100 mg tablet 200 mg PO HS 03/19/22 07/03/24 History ginkgo biloba 40 mg tablet 240 mg PO DAILY PRN 10/18/23 07/03/24 History magnesium 250 mg tablet 500 mg PO BID 10/18/23 07/03/24 History vit B complex 100 combo no.2 100 1 tab PO DAILY 10/18/23 07/03/24 History mg tablet,extended release (Balanced B-100 Complex) vitamin A 2,400 mcg capsule 2,400 mcg PO DAILY PRN 10/18/23 07/03/24 History vitamin E (dl, acetate) 45 mg (100 180 mg PO DAILY 10/18/23 07/03/24 History unit) capsule zinc acetate 25 mg (zinc) capsule 100 mg PO BID 10/18/23 07/03/24 History ascorbic acid (vitamin C) 1,000 mg 1 g PO BID 01/23/24 07/03/24 History tablet loratadine 10 mg tablet (Allergy 10 mg PO DAILY 01/23/24 07/03/24 History Relief (loratadine)) duloxetine 60 mg capsule,delayed 60 mg PO BID 03/20/24 07/03/24 History release (Cymbalta) calcium carbonate (Tums Ultra) 2,000 mg PO DAILY PRN 04/09/24 07/03/24 History coffee extract 100 mg-phosphatidyl 1 cap PO DAILY PRN 04/09/24 07/03/24 History serine 100 mg capsule (Neuriva Original) polyethylene glycol 3350 17 17 g PO DAILY 04/09/24 07/03/24 History gram/dose oral powder benzonatate 100 mg capsule 100 mg PO BID 04/29/24 07/03/24 History bisacodyl 10 mg rectal suppository 10 mg NV DAILY PRN 04/29/24 07/03/24 History multivitamin 1 tab PO DAILY 04/29/24 07/03/24 History montelukast 10 mg tablet 10 mg PO DAILY #90 tabs 05/02/24 07/03/24 Rx sucralfate 1 gram tablet 1 g PO TID 05/13/24 07/03/24 History albuterol sulfate 90 mcg/actuation 2 puff inhalation TID 05/17/24 07/03/24 History aerosol inhaler (Ventolin HFA) calcitonin (salmon) 200 1 spray NS DAILY 05/17/24 07/03/24 History unit/actuation nasal spray midodrine 5 mg tablet 5 mg PO TID 05/17/24 07/03/24 History morphine 30 mg tablet,extended 30 mg PO Q8H 05/17/24 07/03/24 History release hydromorphone 2 mg tablet 2 mg PO HS pain 05/18/24 07/03/24 History pregabalin 75 mg capsule 75 mg PO TID 05/18/24 07/03/24 History ipratropium 0.5 mg-albuterol 3 mg 3 ml inhalation TID 05/27/24 07/03/24 History (2.5 mg base)/3 mL nebulization soln morphine concentrate 20 mg/mL oral 10 mg sublingual ONCE 05/27/24 07/03/24 History syringe (FOR ORAL USE ONLY) L.acidophil,salivari-Bifido 1 cap PO DAILY 06/06/24 07/03/24 History bifidum-Strep thermoph 175 mg capsule (Acidophilus Probiotic Blend) cyclosporine 0.05 % eye drops in a 1 drp OU BID 06/06/24 07/03/24 History dropperette pantoprazole 40 mg tablet,delayed 40 mg PO QAM 06/20/24 07/03/24 History release budesonide 0.5 mg/2 mL suspension 0.5 mg inhalation DAILY 07/03/24 07/03/24 History for nebulization cefpodoxime 200 mg tablet 200 mg PO BID 07/03/24 07/03/24 History naloxone 4 mg/actuation nasal spray 4 mg intranasal Q2-3M PRN 07/03/24 07/03/24 History potassium chloride 10 mEq meq 07/03/24 History capsule,extended release Exam Narrative Exam Narrative: GEN: Alert and oriented to self and place only. Pleasant and cooperative, gives vague history but can answer direct questions. No acute distress at rest. HEENT: Head atraumatic. Conjunctiva clear, no icterus. Pupils 1-2mm rodriguez, reactive, EOMI. no rhinorrhea. MM mildly dry, edentulous, OP without lesion. Neck is supple with no masses or lymphadenopathy, trachea midline LUNGS: Mild tachypnea after speaking, but full sentences. Rales in right base. Slight diffuse wheezing CV: RRR with no murmurs, gallops, or rubs. ABD: active bowel sounds, soft, nontender and nondistended. No masses. EXT: no cyanosis, clubbing, or edema MSK: No joint redness or swelling NEURO: CN 2-12 grossly intact. Normal movement of 4 extremities. Normal speech and coordination. No tremor. Some rhythmic mouth movements during interview. SKIN: No rashes or open wounds. PSYCH: normal mood and affect Results Imaging Chest x-ray: report reviewed (1. Suspected right pleural effusion. Possible small left pleural effusion. 2. Diffusely increased opacity over the right hemithorax with more focally increased opacity over the right lower lung zone suspicious for pulmonary consolidation in the setting of pneumonia or aspiration. Clinical cor) and image reviewed Labs 07/03/24 20:10 07/03/24 20:10 Labs: Laboratory Results - last 24 hr 07/03/24 07/03/24 20:10 20:50 WBC 9.27 RBC 3.55 L Hgb 10.0 L Hct 33.5 L MCV 94 MCH 28.2 MCHC 29.9 L RDW 15.3 H Plt Count 277 MPV 11.1 H Immature Gran % 0.4 Neutrophils % 68.8 Lymphocytes % 12.7 Monocytes % 10.2 Eosinophils % 7.7 Basophils % 0.2 Nucleated RBC % 0.0 Absolute Neutrophils 6.37 Absolute Lymphocytes 1.18 L Absolute Monocytes 0.95 H Absolute Eosinophils 0.71 H Absolute Basophils 0.02 Sodium 142 Potassium 4.8 Chloride 102 Carbon Dioxide 36.2 H Anion Gap 3.8 BUN 15 Creatinine 0.7 Est GFR (CKD-EPI 2020) 85.76 Glucose 96 Calcium 9.6 Magnesium 1.8 Total Bilirubin 0.47 AST 36 ALT 30 Alkaline Phosphatase 118 H Total Protein 7.0 Albumin 2.3 L Procalcitonin < 0.10 COVID-19 Source NASOPHARYNX SARS-CoV-2 (PCR) Negative Influenza Type A (PCR) Negative Influenza Type B (PCR) Negative RSV (PCR) Negative Last Vital Signs Temp 36.8 C 07/03/24 22:17 Pulse 80 07/03/24 23:02 Resp 25 H 07/03/24 23:10 BP 114/53 L 07/03/24 23:02 Pulse Ox 93 07/03/24 23:09 Time Spent Time spent with Patient: >75 minutes Time was spent: preparing to see the patient(eg.review tests), obtaining and/or reviewing separately otained hiistory, ordering medications,tests, procedures, referring, communicating with other health healthcare administration intern, indepentently interpreting results, counseling the patient and care coordination
[2024-07-04] VITALS (32 sets, daily range): BP systolic 84–128; BP diastolic 51–92; PULSE 71–142; RESP 8–39; TEMP 36.7–37.2; O2SAT 90–100
[2024-07-04 00:48] LABS: MRSA PCR Negative (Negative)
[2024-07-04] MEDS: Budesonide 0.5 MG/2 ML UPD VIAL IH (08:26)
[2024-07-04] MEDS: Albuterol/Ipratropium 3 ML UPD VIAL IH ×4 (08:36→19:34)
[2024-07-04 08:39] LABS: Anion Gap 8.8 mmol/L (3-11); BUN 36 mg/dL (7-18); CO2 33.2 mmol/L (21.0-32.0); CREATININE 1.6 mg/dL (0.55-1.02); Calcium 9.3 mg/dL (8.5-10.1); Chloride 102 mmol/L (98-107); Glucose 98 mg/dL (74-106); Potassium 3.6 mmol/L (3.5-5.1); Sodium 144 mmol/L (136-145)
[2024-07-04] MEDS: Multivitamin TAB 1 TAB PO (08:44)
[2024-07-04] MEDS: Sucralfate 1 GM TAB PO ×2 (08:44→16:24)
[2024-07-04] MEDS: Ascorbic Acid 500 MG TAB 1000 MG PO ×2 (08:44→19:56)
[2024-07-04] MEDS: Normal Saline Flush 10 ML SYR IVP ×2 (08:44→20:03)
[2024-07-04] MEDS: DULoxetine 30 MG CAP 60 MG PO ×2 (08:44→19:55)
[2024-07-04] MEDS: Lactobacillus Acidophilus CAP 1 CAP PO (08:44)
[2024-07-04] MEDS: Vitamins B Comp w/C TAB 1 TAB PO (08:44)
[2024-07-04] MEDS: Vitamin E 400 UNITS CAP PO (08:44)
[2024-07-04] MEDS: Pregabalin 25 MG CAP 75 MG PO ×3 (08:44→19:57)
[2024-07-04] MEDS: Enoxaparin 40 MG/0.4 ML SYR SC (08:44)
[2024-07-04] MEDS: Pantoprazole 40 MG TABCR PO (08:44)
[2024-07-04] MEDS: Loratidine 10 MG TAB PO (08:44)
[2024-07-04] MEDS: Potassium Chloride 20 MEQ TABCR PO ×3 (08:44→19:57)
[2024-07-04] MEDS: Magnesium Gluconate 500 MG TAB PO ×2 (08:44→19:57)
[2024-07-04] MEDS: Montelukast 10 MG TAB PO (08:44)
[2024-07-04] MEDS: Midodrine 2.5 MG TAB 5 MG PO ×3 (08:44→20:03)
[2024-07-04] MEDS: Ferrous Sulfate 325 MG TAB PO (08:44)
[2024-07-04] MEDS: Glucosamine 500 MG CAP PO ×2 (08:44→19:57)
[2024-07-04] MEDS: CEFEPIME 2 GM in Normal Saline 100 ML IVPB ×2 (09:06→21:38)
--- NOTE | 2024-07-04 09:06 | INITIAL_ITS ---
Date of service: 07/04/24 Time of Service: 09:06 Care Management Initial Assmt Initial Assessment Reason for Hospitalization: Pneumonia Functional Status/Living Situation Patient Presentation: Elvi was sitting up in bed when CM met with her. She engaged easily with CM but seemed a bit confused. She talked about her code status and palliative Care and informed CM that Dr. Carrasquillo was supposed to see her at the [facility] yesterday. Then she stated that she , I believe she meant at [facility] but she was not clear on that point. She stated I was , but not enough that they had to resuscitate me. Elvi fractured her hip in December and has been staying at the [facility] since. She has had 4 readmissions to the hospital since the end of April, all for pneumonia and, in general, is not doing well. She requires assistance with ADLs and is non-weigth bearing, requiring the use of a kristopher lift to get into her wheelchair. Elvi's only close relative is her sister Marzena Pena who lives in [place]. She has never been and does not have any children. Town of Residence: [place] Resides with: Other (SNF) Significant Other/Family: Out of area (sister lives in [place]) Natural Supports: sister Employment Status: Retired Instrumental Activities of Daily Living (ADLs): Requires support Medications Medication Management: No Issues/Barriers identified Physical Functioning/Mobility Assistive Device: wheelchair bound and non-weight bearing Advance Directives Advance Directives: Do you have an Advance Directive: Y 06/26/24 14:21 AD On File at [facility]: Y 06/26/24 14:21 Date Asked 06/06/24 06/26/24 14:21 AD Date Reviewed 05/27/24 06/26/24 14:21 COLST On File at [facility] Yes 06/26/24 14:21 COLST Date Scanned 06/24/24 06/26/24 14:21 Code Status Resuscitation Status DNR/DNI Portal Pt does not currently have a portal and education provided: No Insurance Coverage/Financial Issues Insurance: Medicare Medicaid Care Team Visit Care Team Role Provider Type Iesha Leary Primary Care Provider NON-[facility] STAFF PHYSICIAN Manohar Trejo MD Emergency Provider [facility] STAFF PHYSICIAN Audie Richmond Admit Provider [facility] STAFF PHYSICIAN Attending Provider Discharge Potential Discharge Needs: Other (SNF) Anticipated Barriers to Discharge: Medical Status Patient/Family Education Needs: Review discharge instructions, discuss Ask Me Three Transportation: EMS Plan: Anticipate Elvi will return to the [facility] when medically stable. She will follow up with facility providers and plan of care and transport via EMS. CM will follow and continue to support discharge planning. ON LICENSE OF [facility] All Active Problems (Updated 07/03/24 @ 23:52 by Audie Richmond) DVT prophylaxis (Acute) Acute and chronic respiratory failure with hypoxia (Acute) Aspiration into airway (Acute) ACP (advance care planning) (Acute) Recurrent pneumonia (Acute) Displaced intertrochanteric fracture of left femur, subsequent encounter for closed fracture with malunion (Acute) Medical History Chronic pain Pneumonia Sepsis associated hypotension Nail dystrophy Non-sustained ventricular tachycardia Respiratory failure Pneumonia Chronic hypoxic respiratory failure Pain due to internal orthopedic prosthetic device Lung disease Left hip pain Seasonal allergies Hypotension Intertrochanteric fracture of left femur S/P IM FIXATION 01/01/24 Acute UTI Skin ulcer DNR (do not resuscitate) 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 No heat for 1-1/2 days Dehydration, mild (09/22/14) Irritable bowel syndrome Hiatal hernia Gastroesophageal reflux disease Insomnia DJD (degenerative joint disease) Fibromyalgia Hyperlipidemia Allergic rhinitis Morbid obesity Fall (09/22/14) a. fell down and could not get up Frequent falls Alcohol withdrawal NSIP (nonspecific interstitial pneumonia) Fracture of right inferior pubic ramus Fracture of right superior pubic ramus Laceration of skin of right forearm Skin ulcer of lower leg Laceration of arm, right, complicated Fractured pelvis T12 compression fracture Acute exacerbation of chronic low back pain Fall Hiatal hernia IBS (irritable bowel syndrome) Hypertension Allergic rhinitis GERD (gastroesophageal reflux disease) DJD (degenerative joint disease) Hyperlipidemia Hypercholesterolemia Fibromyalgia Depression Anemia Alcohol abuse Insomnia Person living alone (09/22/14) Surgical History History of surgery a. S/P open right ankle fracture/dislocation. b. Left knee arthroscopy. c. Right wrist fracture repair. d. T/A as a child. Tonsillectomy and adenoidectomy Repair fracture right wrist ORIF right ankle Colonoscopy - MAC (11/18/16) Arthroplasty of knee left Family History Mother Dementia Maternal Aunt Diabetes Social History Smoking/Tobacco Use Status: Former Tobacco Use Smoking risk assessment performed?: Yes Alcohol Intake: current Alcohol Intake frequency: 0-2 drinks per day Alcohol type: wine Counseling given: Yes Details: 1-2 bottle of wine/day Drug use: Current Sobriety Substance use type: does not use and marijuana Details: two tokes for sleep Housing: correction Do you feel safe at home: Yes Do you feel safe in your relationship?: Yes Additional Social history: LIVES AT [facility](Care Management) Screening Will the Patient Participate in the Screening?: Yes Do you worry about having a steady place to live?: no Problems where you live: no known problems In the past 12 months, have you had to go without electric, gas, oil or water in your home?: no Have you or anyone in your house had to go without enough food to eat?: no Has lack of transportation kept you from medical appointments or from doing things needed for daily living?: no Has anyone in your support network made you feel unsafe for any reason?: no Social Determinants of Health Comments([facility] Details): pt lives at the [facility] Health Related Social Needs Health related social needs details: no problems noted.
[2024-07-04 09:20] LABS: Abs Immature Grans 0.03 10^3/uL (0.0-0.06); Absolute Basophil Count 0.01 10^3/uL (0.0-0.2); Absolute Lymphocyte Count 0.52 10^3/uL (1.2-3.4); Absolute Monocyte Count 0.11 10^3/uL (0.1-0.8); Absolute Neutrophil Count 7.75 10^3/uL (1.2-6.7); Basophils % 0.1 %; HCT 28.9 % (36.0-46.0); HGB 8.8 g/dL (11.2-15.7); Immature Grans % 0.4 %; Lymphocytes % 6.2 %; MCH 28.3 pg (27.0-33.0); MCHC 30.4 % (32.0-36.0); MCV 93 fL (80-95); Monocytes % 1.3 %; Platelet Count 269 10^3/uL (130-400); RBC 3.11 10^6/uL (3.93-5.22); RDW 15.1 % (11.7-14.6); RDW-SD 51.2 fL; WBC 8.42 10^3/uL (4.4-10.8)
[2024-07-04] MEDS: Calcitonin-Salmon, Synthetic 3.7 ML BTL NS (10:18)
[2024-07-04] MEDS: Fluticasone NASAL SPRAY 16 GM BTL NS ×2 (10:23→19:58)
[2024-07-04] MEDS: Polyethylene Glycol 3350 17 GM PACKET PO (10:25)
--- NOTE | 2024-07-04 10:56 | PHA.REVIEW2 ---
Pharmacy Admission Review Admission Clinical Review Admission Pharmacy Review: DVT prophylaxis (Acute) Acute and chronic respiratory failure with hypoxia (Acute) Aspiration into airway (Acute) ACP (advance care planning) (Acute) Recurrent pneumonia (Acute) fentanyl Adverse Reaction (Verified 07/03/24 20:18) Nausea Resuscitation Status DNR/DNI Height 5 ft 8 in Weight 84 kg Comments Comments/Follow Ups: Per provider patient is being transferred to PA status Pharmacy Admission Review Renal Dosing Renal Dosing: BUN 15 mg/dL (7-18) 07/03/24 20:10 Creatinine 0.7 mg/dL (0.55-1.02) 07/03/24 20:10 Medications needing adjustments: Reviewed (CrCl 48.41 mL/min) List of meds needing interventions: Current medications are okay. Cefepime is renally adjusted from 2g q8h to 2g q12h Anticoagulation Anticoagulation: Hgb 8.8 g/dL (11.2-15.7) L 07/04/24 05:55 Hct 28.9 % (36.0-46.0) L 07/04/24 05:55 Plt Count 269 10^3/uL (130-400) 07/04/24 05:55 Creatinine 0.7 mg/dL (0.55-1.02) 07/03/24 20:10 DVT Prophylaxis: Reviewed (Hgb decreased from 8.8) Medications: Enoxaparin (40mg daily) Opiate Usage Evaluate Pain Scale/Pains Meds: Reviewed (hydromorphone 2mg PO HS and Ms Contin 30mg q8h) Scheduled Bowel Reg ordered if on Opiates?: Yes (Miralax) Relevant Labs Relevant Labs: Sodium 142 mmol/L (136-145) 07/03/24 20:10 Potassium 4.8 mmol/L (3.5-5.1) 07/03/24 20:10 Chloride 102 mmol/L (98-107) 07/03/24 20:10 Magnesium 1.8 mg/dL (1.8-2.4) 07/03/24 20:10 Electrolytes, C-Reactive P, ESR: Reviewed (labs pending - Socrative downtime) Cardiac Review Cardiac Review: Blood Pressure 111/63 0900 Blood Pressure 92/73 0801 Blood Pressure 84/72 0701 Blood Pressure 115/51 0609 Blood Pressure 111/62 0501 Blood Pressure 97/57 0400 BP, HR, EF%: Reviewed (HR 108) List meds needing interventions: Has order for midodrine 5mg TID QTc Review QTc: Reviewed (439 from 06/20/24) IV to PO Switch IV Medications: Reviewed (cefepime) Home Meds Home Med List reviewed: Intervened Relevent Home Meds Not ordered & why?: vitamin D3, Neuriva, gingko, glucosamine and Narcan (PRN) Changed zinc acetate to patients own order. Will need to be brought in if patient wants to take while inpatient. Current Meds Current Medication Order Review: Intervened Comments: Added 2nd PRN to benzonatate, bisacodyl and Tums orders per pharmacy protocol Changed timing of pantoprazole from 0830 to 0730 per pharmacy protocol Changed Miralax order from bottle to packet per pharmacy protocol Pharmacy Antibiotic Review Relevant Labs: Relevant Labs 07/03/24 20:10 Procalcitonin < 0.10 WBC 8.42 10^3/uL (4.4-10.8) 07/04/24 05:55 Procalcitonin < 0.10 ng/mL 07/03/24 20:10 Temperature 36.9 C Temperature 36.8 C Pharmacy Antibiotic Activity: C/S review and Reviewed, no change Comments: Patient is on cefepime (renally adjusted), day 1, for possible aspiration pneumonia. Blood cultures pending and MRSA swab negative. Last elevated temperature was 37.7 last night at 2000. Comments Comments/Follow Ups: Per provider patient is being transferred to PA status
--- NOTE | 2024-07-04 12:28 | W.PC.ACHO ---
Registration Status: Primary Language: Preferred Language: ED Information & Data Chief Complaint GenMedical 07/03/24 20:02 Triage Note Pt BIBEMS per report 07/03/24 19:50 obtunded at halfway w/ poor resp effort and minimally responsive to stim . Upon arrival pt CAOx3, drowsy but easily arousable. EMS states she had an elevated temp on scene, but was responsive w/ mildly elevated HR on scene 90- 100bpm. BP WDL. Recent dx of atypical PNA and UTI for which she has completed abx for. Coarse cough. Medical / Surgical History (Last Reviewed 07/03/24 @ 23:28 by Audie Richmond) Depression Onychomycosis Ataxia Rhabdomyolysis (09/22/14) Alcohol withdrawal delirium (09/22/14) Anemia H/O fall Housing or economic circumstance (09/22/14) Dehydration, mild (09/22/14) Irritable bowel syndrome Hiatal hernia Gastroesophageal reflux disease DJD (degenerative joint disease) Fibromyalgia Hyperlipidemia Allergic rhinitis Fall (09/22/14) Morbid obesity Colitis determined by colorectal biopsy (11/18/16) Arthritis of right ankle Osteoarthritis of left knee Compression fx, thoracic spine Chronic pain disorder Menopausal disorder E. coli UTI DNR (do not resuscitate) Seasonal allergies Community acquired pneumonia Skin ulcer Acute UTI Interstitial lung disease Left hip pain Lung disease Pain due to internal orthopedic prosthetic device Chronic hypoxic respiratory failure Respiratory failure Nail dystrophy Sepsis associated hypotension Pneumonia Chronic pain Pneumonia Non-sustained ventricular tachycardia Hypotension Intertrochanteric fracture of left femur Insomnia Frequent falls Alcohol withdrawal NSIP (nonspecific interstitial pneumonia) Fracture of right inferior pubic ramus Fracture of right superior pubic ramus Laceration of skin of right forearm Skin ulcer of lower leg Laceration of arm, right, complicated Fractured pelvis T12 compression fracture Acute exacerbation of chronic low back pain Fall Person living alone (09/22/14) Hiatal hernia IBS (irritable bowel syndrome) Hypertension Allergic rhinitis GERD (gastroesophageal reflux disease) DJD (degenerative joint disease) Hyperlipidemia Hypercholesterolemia Fibromyalgia Depression Anemia Alcohol abuse Insomnia (Last Reviewed 07/03/24 @ 23:28 by Audie Richmond) History of surgery Tonsillectomy and adenoidectomy Repair fracture right wrist ORIF right ankle Colonoscopy - MAC (11/18/16) Arthroplasty of knee Most Recent Vital Signs Temperature 37.2 C 07/04/24 12:05 Temperature Source Temporal Artery Scan 07/04/24 12:05 Pulse 102 H 07/04/24 12:05 Pulse 109 H 07/04/24 11:40 Respiratory Rate 20 07/04/24 12:05 Respiratory Effort Short of Breath 07/04/24 01:01 Respiratory Depth Shallow 07/04/24 01:01 Respiratory Pattern Tachypnea 07/04/24 01:01 Blood Pressure 112/61 07/04/24 12:05 Blood Pressure Mean 86 07/04/24 10:01 Blood Pressure Position Supine 07/04/24 01:01 Pulse Oximetry 95 07/04/24 12:05 Oxygen Delivery Method Nasal Cannula 07/04/24 12:05 Oxygen Flow Rate 1 07/04/24 12:05 Pain Level 1 07/04/24 12:05 Allergies fentanyl Adverse Reaction (Verified 07/03/24 20:18) Nausea Precautions Isolation Standard precaution 07/03/24 20:00 Active Medications Generic Name Dose Route Start Last Admin Trade Name Freq PRN Reason Stop Dose Admin Acidophilus/Pectin 1 cap 07/04/24 08:30 07/04/24 08:44 Lactobacillus Acidophilus Cap PO 1 cap DAILY MARI Administration Albuterol/Ipratropium 3 ml 07/04/24 08:30 07/04/24 11:12 Albuterol/Ipratropium 3 Ml Upd Vial IH 3 ml QID MARI Administration Ascorbic Acid 1,000 mg 07/04/24 08:30 07/04/24 08:44 Ascorbic Acid 500 Mg Tab PO 1,000 mg BID MARI Administration Budesonide 0.5 mg 07/04/24 08:30 07/04/24 08:26 Budesonide 0.5 Mg/2 Ml Upd Vial IH 0.5 mg DAILY MARI Administration Calcitonin [place] 0 ml 07/04/24 08:30 07/04/24 10:18 Calcitonin-[place], Synthetic 3.7 Ml Btl NS 1 spray DAILY MARI Administration Cyclosporine 0 ml 07/04/24 08:30 07/04/24 08:44 Cyclosporine 0.4 Ml Ophth Vial OU 0.4 ml BID MARI Administration Duloxetine HCl 60 mg 07/04/24 08:30 07/04/24 08:44 Duloxetine 30 Mg Cap PO 60 mg BID MARI Administration Enoxaparin Sodium 40 mg 07/04/24 08:30 07/04/24 08:44 Enoxaparin 40 Mg/0.4 Ml Syr SC 40 mg Q24H MARI Administration Ferrous Sulfate 325 mg 07/04/24 08:30 07/04/24 08:44 Ferrous Sulfate 325 Mg Tab PO 325 mg DAILY MARI Administration Fluticasone Propionate 0 gm 07/04/24 08:30 07/04/24 10:23 Fluticasone Nasal Lynd 16 Gm Btl NS 2 sprays BID MARI Administration Glucosamine Sulfate 500 mg 07/04/24 08:30 07/04/24 08:44 Glucosamine 500 Mg Cap PO 500 mg BID MARI Administration Cefepime HCl 2 gm/ Sodium 100 mls @ 200 mls/hr 07/04/24 09:00 07/04/24 09:40 Chloride IVPB Infused Q12H MARI Infusion Loratadine 10 mg 07/04/24 08:30 07/04/24 08:44 Loratidine 10 Mg Tab PO 10 mg DAILY MARI Administration Magnesium Gluconate 500 mg 07/04/24 08:30 07/04/24 08:44 Magnesium Gluconate 500 Mg Tab PO 500 mg BID MARI Administration Midodrine 5 mg 07/04/24 08:30 07/04/24 08:44 Midodrine 2.5 Mg Tab PO 5 mg TID MARI Administration Montelukast Sodium 10 mg 07/04/24 08:30 07/04/24 08:44 Montelukast 10 Mg Tab PO 10 mg DAILY MARI Administration Morphine Sulfate 30 mg 07/03/24 22:00 07/04/24 06:00 Morphine Cr 30 Mg Tabcr PO Not Given Q8H MARI Multivitamins 1 tab 07/04/24 08:30 07/04/24 08:44 Multivitamin Tab PO 1 tab DAILY MARI Administration Polyethylene Glycol 17 gm 07/04/24 09:00 07/04/24 10:25 Polyethylene Glycol 3350 17 Gm Packet PO 17 gm DAILY MARI Administration Potassium Chloride 20 meq 07/04/24 08:30 07/04/24 08:44 Potassium Chloride 20 Meq Tabcr PO 20 meq TID MARI Administration Pregabalin 75 mg 07/04/24 08:30 07/04/24 08:44 Pregabalin 25 Mg Cap PO 75 mg TID MARI Administration Sodium Chloride 0 ml 07/03/24 20:00 07/04/24 08:44 Normal Saline Flush 10 Ml Syr IVP 60 ml BID MARI Administration Sucralfate 1 gm 07/04/24 07:30 07/04/24 08:44 Sucralfate 1 Gm Tab PO 1 gm AC MARI Administration Vitamin B Complex/Vitamin C 1 tab 07/04/24 08:30 07/04/24 08:44 Vitamins B Comp W/C Tab PO 1 tab DAILY MARI Administration [id number]-Fknht-[id number] Acetate 400 units 07/04/24 08:30 07/04/24 08:44 Vitamin E 400 Units Cap PO 400 units DAILY MARI Administration IV IV Catheter Type [Right Saline Lock Antecubital] IV Catheter Gauge [Right 18 Antecubital] Diet Orders Category Date Time Status Regular/Normal [DIET] Nutrition 07/04/24 Breakfast Active Diagnostics 07/04/24 07/03/24 07/03/24 Range/Units 05:55 23:36 20:50 WBC 8.42 (4.4-10.8) 10^3/uL RBC 3.11 L (3.93-5.22) 10^6/uL Hgb 8.8 L (11.2-15.7) g/dL Hct 28.9 L (36.0-46.0) % MCV 93 (80-95) fL MCH 28.3 (27.0-33.0) pg MCHC 30.4 L (32.0-36.0) % RDW 15.1 H (11.7-14.6) % Plt Count 269 (130-400) 10^3/uL MPV 11.0 (8.0-11.0) fL Immature Gran % 0.4 % Neutrophils % 92.0 % Lymphocytes % 6.2 % Monocytes % 1.3 % Eosinophils % 0.0 % Basophils % 0.1 % Nucleated RBC % 0.0 (0.0-0.3) % Absolute Neutrophils 7.75 H (1.2-6.7) 10^3/uL Absolute Lymphocytes 0.52 L (1.2-3.4) 10^3/uL Absolute Monocytes 0.11 (0.1-0.8) 10^3/uL Absolute Eosinophils 0.00 (0.0-0.7) 10^3/uL Absolute Basophils 0.01 (0.0-0.2) 10^3/uL Sodium 144 (136-145) mmol/L Potassium 3.6 D (3.5-5.1) mmol/L Chloride 102 (98-107) mmol/L Carbon Dioxide 33.2 H (21.0-32.0) mmol/L Anion Gap 8.8 (3-11) mmol/L BUN 36 H (7-18) mg/dL Creatinine 1.6 H (0.55-1.02) mg/dL Est GFR (CKD-EPI 2020) 31.80 (mL/min/1.73m2) Glucose 98 (74-106) mg/dL Calcium 9.3 (8.5-10.1) mg/dL Magnesium (1.8-2.4) mg/dL Total Bilirubin (0.2-1.0) mg/dL AST (15-37) U/L ALT (14-59) U/L Alkaline Phosphatase (46-116) U/L Total Protein (6.4-8.2) g/dL Albumin (3.4-5.0) g/dL Procalcitonin ng/mL COVID-19 Source NASOPHARYNX SARS-CoV-2 (PCR) Negative (Negative) Influenza Type A (PCR) Negative (Negative) Influenza Type B (PCR) Negative (Negative) RSV (PCR) Negative (Negative) MRSA (TEM-PCR) Negative (Negative) 07/03/24 Range/Units 20:10 WBC 9.27 (4.4-10.8) 10^3/uL RBC 3.55 L (3.93-5.22) 10^6/uL Hgb 10.0 L (11.2-15.7) g/dL Hct 33.5 L (36.0-46.0) % MCV 94 (80-95) fL MCH 28.2 (27.0-33.0) pg MCHC 29.9 L (32.0-36.0) % RDW 15.3 H (11.7-14.6) % Plt Count 277 (130-400) 10^3/uL MPV 11.1 H (8.0-11.0) fL Immature Gran % 0.4 % Neutrophils % 68.8 % Lymphocytes % 12.7 % Monocytes % 10.2 % Eosinophils % 7.7 % Basophils % 0.2 % Nucleated RBC % 0.0 (0.0-0.3) % Absolute Neutrophils 6.37 (1.2-6.7) 10^3/uL Absolute Lymphocytes 1.18 L (1.2-3.4) 10^3/uL Absolute Monocytes 0.95 H (0.1-0.8) 10^3/uL Absolute Eosinophils 0.71 H (0.0-0.7) 10^3/uL Absolute Basophils 0.02 (0.0-0.2) 10^3/uL Sodium 142 (136-145) mmol/L Potassium 4.8 (3.5-5.1) mmol/L Chloride 102 (98-107) mmol/L Carbon Dioxide 36.2 H (21.0-32.0) mmol/L Anion Gap 3.8 (3-11) mmol/L BUN 15 (7-18) mg/dL Creatinine 0.7 (0.55-1.02) mg/dL Est GFR (CKD-EPI 2020) 85.76 (mL/min/1.73m2) Glucose 96 (74-106) mg/dL Calcium 9.6 (8.5-10.1) mg/dL Magnesium 1.8 (1.8-2.4) mg/dL Total Bilirubin 0.47 (0.2-1.0) mg/dL AST 36 (15-37) U/L ALT 30 (14-59) U/L Alkaline Phosphatase 118 H (46-116) U/L Total Protein 7.0 (6.4-8.2) g/dL Albumin 2.3 L (3.4-5.0) g/dL Procalcitonin < 0.10 ng/mL COVID-19 Source SARS-CoV-2 (PCR) (Negative) Influenza Type A (PCR) (Negative) Influenza Type B (PCR) (Negative) RSV (PCR) (Negative) MRSA (TEM-PCR) (Negative) 07/03/24 20:47 Blood Culture - Pending Blood 07/03/24 20:10 Blood Culture - Pending Blood Intake and Output - 24 Hour Total 07/03/24 19:07 thru 07/04/24 09:40 Intake Total 1455 Balance 1455 Weight 84 kg Intake: IV 150 Oral 1305 Other: Comment pt was incontinent unknown amount Stool Size Copious Stool Characteristics Soft Formed Brown # Voids 1 Falls Risk Assessment History of Falls Previous History 07/04/24 01:01 Contributing Factors Confusion,Unstable, 07/04/24 01:01 Incontinence,Medications Ambulatory Aids Uses ambulatory device + 07/04/24 01:01 Tubes/Lines With any additional score 07/04/24 01:01 Gait Evaluation W/any additional score 07/04/24 01:01 Cognition Cognitive impairment 07/04/24 01:01 Fall Total Score 112 07/04/24 01:01 Level of Risk Maximum Risk 07/04/24 01:01 Problems (Last Reviewed 07/03/24 @ 23:28 by Audie Richmond) DVT prophylaxis (Acute) Acute and chronic respiratory failure with hypoxia (Acute) Aspiration into airway (Acute) ACP (advance care planning) (Acute) Recurrent pneumonia (Acute) v v v v v v v v v Sending and/or Receiving Nurses: Please use comment section below to note any information pertinent to the patient hand-off not included above. Information / Comments: Report received from: Report received from Torrey RN given to Azucena RN and Shyla RN at 1145, pt is now in 228 med surg
--- NOTE | 2024-07-04 16:45 | PGE_ITS ---
Date of Service Date of service: 07/04/24 Time of Service: 16:45 Assessment and Plan Assessment and plan (1) Recurrent pneumonia: Status: Acute Assessment and plan: I agree with impression that this is likely aspiration given the history we have of an acute change associated with some mental status depression and her known history. For now given recent hospitalizations will treat with cefepime. Recent cultures reviewed and no resistant organisms. MRSA swab sent, add vancomycin if positive Procalcitonin low. This could be repeated in 48 hours and antibiotics stopped i f clinically back to baseline suggesting pneumonitis rather than pneumonia. 07/04/2024 Patient was a late night admission last night. Currently she is being treated for aspiration pneumonia Cefepime 2 g IV every 12 hours. She was given Rocephin ER last night. Recheck CBC as well as procalcitonin and lactic acid in the a.m. Patient's white count is 8.4 and I do not see a significant left shift. Her chest x-ray shows suspected right pleural effusion as well as increased opacities over the right hemithorax. In reviewing her chart she did get a CT of her chest abdomen and pelvis on June 06, 2024 so I will repeat this at this time. (2) Aspiration into airway: Status: Acute Assessment and plan: As above. A/w polypharmacy with sedating medications. 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 It is possible this episode related to addition of liquid morphine to other opioids, but this isn't clear. 07/04/2024 According to nursing staff patient has been started on liquid morphine which could have contributed to her decrease in mental status. In reviewing her H&P she was given naloxone without significant improvement while she was at the custodial facility. If this was related to her narcotic use and was expected to quicker and more pronounced recovery. Exact etiology remains unknown at this point. Qualifiers: Encounter type: initial encounter Qualified Code(s): T17.908A - Unspecified foreign body in respiratory tract, part unspecified causing other injury, initial encounter (3) Acute and chronic respiratory failure with hypoxia: Status: Acute Assessment and plan: Secondary to above, requiring 3 liters oxygen after event, above her chronic 2 liters. 07/04/2024 Patient is currently on 1 L satting 92% at home. She is on 2 L chronically so we will see if I can get this increase. (4) Hypotension: Assessment and plan: She has had some low BPs, but BP was normal during my evaluation. She has chornic low BPs and is on midodrine. I don't think given the pattern that this is sepsis, but covering with cefepime and monitor in ICU overnight in case she becomes unstable. 07/04/2024 Patient has a long history of hypotension and is on midodrine currently her blood pressure is 112/92. Continue with the current medications. Qualifiers: Hypotension type: hypotension due to hypovolemia Qualified Code(s): E86.1 - Hypovolemia (5) DVT prophylaxis: Status: Acute Assessment and plan: enoxaparin (6) ACP (advance care planning): Status: Acute Assessment and plan: Elvi has had decliniing health and many recent admissions. She has been working with palliative care. Will consult for continuity. She is DNR/DNI Subjective Subjective Interval history since last seen: Patient seen and examined in her room this morning. Plan of care discussed with the patient as well as bedside nurse. Exam Narrative Exam Narrative: GEN: Alert and oriented to self and place only. Pleasant and cooperative, gives vague history but can answer direct questions. No acute distress at rest. HEENT: Head atraumatic. Conjunctiva clear, no icterus. Pupils 1-2mm rodriguez, reactive, EOMI. no rhinorrhea. MM mildly dry, edentulous, OP without lesion. Neck is supple with no masses or lymphadenopathy, trachea midline LUNGS: Mild tachypnea after speaking, but full sentences. Rales in right base. Slight diffuse wheezing CV: RRR with no murmurs, gallops, or rubs. ABD: active bowel sounds, soft, nontender and nondistended. No masses. EXT: no cyanosis, clubbing, or edema MSK: No joint redness or swelling NEURO: CN 2-12 grossly intact. Normal movement of 4 extremities. Normal speech and coordination. No tremor. Some rhythmic mouth movements during interview. SKIN: No rashes or open wounds. PSYCH: normal mood and affect Objective Last Vital Signs Temp 36.9 C 07/04/24 15:08 Pulse 71 07/04/24 16:02 Resp 18 07/04/24 15:54 BP 112/92 H 07/04/24 15:08 Pulse Ox 92 11/14/24 15:54 Laboratory Results - last 24 hr 07/03/24 07/03/24 07/03/24 20:10 20:50 23:36 WBC 9.27 RBC 3.55 L Hgb 10.0 L Hct 33.5 L MCV 94 MCH 28.2 MCHC 29.9 L RDW 15.3 H Plt Count 277 MPV 11.1 H Immature Gran % 0.4 Neutrophils % 68.8 Lymphocytes % 12.7 Monocytes % 10.2 Eosinophils % 7.7 Basophils % 0.2 Nucleated RBC % 0.0 Absolute Neutrophils 6.37 Absolute Lymphocytes 1.18 L Absolute Monocytes 0.95 H Absolute Eosinophils 0.71 H Absolute Basophils 0.02 Sodium 142 Potassium 4.8 Chloride 102 Carbon Dioxide 36.2 H Anion Gap 3.8 BUN 15 Creatinine 0.7 Est GFR (CKD-EPI 2020) 85.76 Glucose 96 Calcium 9.6 Magnesium 1.8 Total Bilirubin 0.47 AST 36 ALT 30 Alkaline Phosphatase 118 H Total Protein 7.0 Albumin 2.3 L Procalcitonin < 0.10 COVID-19 Source NASOPHARYNX SARS-CoV-2 (PCR) Negative Influenza Type A (PCR) Negative Influenza Type B (PCR) Negative RSV (PCR) Negative MRSA (TEM-PCR) Negative 07/04/24 05:55 WBC 8.42 RBC 3.11 L Hgb 8.8 L Hct 28.9 L MCV 93 MCH 28.3 MCHC 30.4 L RDW 15.1 H Plt Count 269 MPV 11.0 Immature Gran % 0.4 Neutrophils % 92.0 Lymphocytes % 6.2 Monocytes % 1.3 Eosinophils % 0.0 Basophils % 0.1 Nucleated RBC % 0.0 Absolute Neutrophils 7.75 H Absolute Lymphocytes 0.52 L Absolute Monocytes 0.11 Absolute Eosinophils 0.00 Absolute Basophils 0.01 Sodium 144 Potassium 3.6 D Chloride 102 Carbon Dioxide 33.2 H Anion Gap 8.8 BUN 36 H Creatinine 1.6 H Est GFR (CKD-EPI 2020) 31.80 Glucose 98 Calcium 9.3 Magnesium Total Bilirubin AST ALT Alkaline Phosphatase Total Protein Albumin Procalcitonin COVID-19 Source SARS-CoV-2 (PCR) Influenza Type A (PCR) Influenza Type B (PCR) RSV (PCR) MRSA (TEM-PCR) Time Spent with Patient Time Spent with Patient: 35-49 minutes Time was spent: preparing to see the patient(eg.review tests), obtaining and/or reviewing separately otained hiistory, ordering medications,tests, procedures, referring, communicating with other health healthcare project manager, indepentently interpreting results, counseling the patient and care coordination
[2024-07-04] MEDS: QUEtiapine 50 MG TAB PO (19:56)
[2024-07-04] MEDS: traZODone 100 MG TAB 200 MG PO (19:57)
--- NOTE | 2024-07-04 22:17 | NUR.NOTE ---
Nursing Note: 2030 Patient sister, Marzena Moran, called to inquire about the patient. I informed her that I had just given her sister her PM medications and that she was resting in bed. I spoke with her further that she her lungs had some wheezing currently but that her sister was resting in bed with no pain. She asked about the possibility of transferring her sister to a facility closer to where she lives in [place]. I informed her that I am not familiar with the intricacies of the insurance differences and transferring state to state. I suggested that she speak with care management in that regard during the day. She then asked about her code status and I reviewed the palliative care notes to find that she recently signed a COLST form as DRN/DNI, the sister said that when she was with her that she had decided to try to fight on and had rescinded her DNR/DNI previously. I assured her that we all want to give care that the patient wishes and that it is her choice in what measures she wishes. She agrees with that sentiment. I told the sister that I would reach out with any major changes overnight. She provided her phone numbers of [phone] for a home number and a cell number of [phone].
[2024-07-05] VITALS (64 sets, daily range): BP systolic 84–134; BP diastolic 62–87; PULSE 81–103; RESP 2–18; TEMP 35.7–37; O2SAT 93–97
[2024-07-05 06:59] LABS: Lactate 0.6 mmol/L (0.6-1.4)
[2024-07-05 07:03] LABS: HGB 9.1 g/dL (11.2-15.7); MCH 27.7 pg (27.0-33.0); MCHC 31.4 % (32.0-36.0); MCV 88 fL (80-95); MPV 10.7 fL (8.0-11.0); Platelet Count 328 10^3/uL (130-400); RBC 3.29 10^6/uL (3.93-5.22); RDW 15.6 % (11.7-14.6); RDW-SD 50.3 fL; WBC 7.07 10^3/uL (4.4-10.8)
[2024-07-05 07:19] LABS: ALT 76 U/L (14-59); AST 89 U/L (15-37); Albumin 2.2 g/dL (3.4-5.0); Alkaline Phosphatase 102 U/L (46-116); Anion Gap 4.1 mmol/L (3-11); BUN 12 mg/dL (7-18); Bilirubin, Total 0.32 mg/dL (0.2-1.0); CO2 34.9 mmol/L (21.0-32.0); CREATININE 0.6 mg/dL (0.55-1.02); Calcium 9.5 mg/dL (8.5-10.1); Chloride 106 mmol/L (98-107); Estimated GFR 89.01 (mL/min/1.73m2); Glucose 99 mg/dL (74-106); Potassium 4.6 mmol/L (3.5-5.1); Sodium 145 mmol/L (136-145); Total Protein 6.8 g/dL (6.4-8.2)
[2024-07-05] MEDS: Albuterol/Ipratropium 3 ML UPD VIAL IH ×4 (07:42→19:45)
[2024-07-05] MEDS: Budesonide 0.5 MG/2 ML UPD VIAL IH (07:45)
[2024-07-05] MEDS: Ascorbic Acid 500 MG TAB 1000 MG PO ×2 (08:28→21:08)
[2024-07-05] MEDS: Vitamin E 400 UNITS CAP PO (08:28)
[2024-07-05] MEDS: Pantoprazole 40 MG TABCR PO (08:28)
[2024-07-05] MEDS: DULoxetine 30 MG CAP 60 MG PO ×2 (08:28→21:10)
[2024-07-05] MEDS: Multivitamin TAB 1 TAB PO (08:29)
[2024-07-05] MEDS: Vitamins B Comp w/C TAB 1 TAB PO (08:29)
[2024-07-05] MEDS: Ferrous Sulfate 325 MG TAB PO (08:29)
[2024-07-05] MEDS: Potassium Chloride 20 MEQ TABCR PO ×3 (08:29→21:09)
[2024-07-05] MEDS: Midodrine 2.5 MG TAB 5 MG PO ×3 (08:29→21:11)
[2024-07-05] MEDS: Lactobacillus Acidophilus CAP 1 CAP PO (08:29)
[2024-07-05] MEDS: Glucosamine 500 MG CAP PO ×2 (08:29→21:09)
[2024-07-05] MEDS: Montelukast 10 MG TAB PO (08:29)
[2024-07-05] MEDS: Sucralfate 1 GM TAB PO ×3 (08:29→17:14)
[2024-07-05] MEDS: Magnesium Gluconate 500 MG TAB PO ×2 (08:29→21:12)
[2024-07-05] MEDS: Loratidine 10 MG TAB PO (08:30)
[2024-07-05] MEDS: Pregabalin 25 MG CAP 75 MG PO ×3 (08:30→21:08)
[2024-07-05] MEDS: Fluticasone NASAL SPRAY 16 GM BTL NS ×2 (08:31→21:20)
[2024-07-05] MEDS: Enoxaparin 40 MG/0.4 ML SYR SC (08:31)
[2024-07-05] MEDS: CEFEPIME 2 GM in Normal Saline 100 ML IVPB ×2 (08:32→21:14)
[2024-07-05] MEDS: Normal Saline Flush 10 ML SYR IVP ×3 (08:34→21:14)
[2024-07-05] MEDS: Calcitonin-Salmon, Synthetic 3.7 ML BTL NS (09:00)
--- NOTE | 2024-07-05 09:02 | PDOC.CMPRO ---
Date of service: 07/05/24 Time of Service: 09:02 Care Management Progress Note Progress Note Text Progress Note Text: Elvi was sitting up in bed when CM met with her. She was yawning and informed CM that she has been yawning all morning, something she rarely does. Elvi was admitted with probable aspiration pneumonia. This is her 4th admission in the past 3 months for pneumonia. CM spoke with staff from the [facility] today. Elvi has been followed by [facility] [facility] at [facility] and was seen last in mid May. She is currently on a regular diet with small bites and thin liquids. It was noted however that Elvi is rather non-compliant and is her own decision-make, so ultimately is given whatever she asks for. Elvi seemed less confused today and engaged well with CM. She is still a bit hypotensive but is afebrile and has a normal WBC. She will likely remain hospitalized through the weekend. Discharge Potential Discharge Needs: Other (SNF) Anticipated Barriers to Discharge: None Identified Patient/Family Education Needs: Review discharge instructions, discuss Ask Me Three Transportation: Private vehicle Plan: Anticipate Elvi will return to the [facility] when medically stable. She will follow up with facility providers and plan of care and transport via EMS. CM will follow and continue to support discharge planning. SDOH(Care Management) Screening Will the Patient Participate in the Screening?: Yes Do you worry about having a steady place to live?: no Problems where you live: no known problems In the past 12 months, have you had to go without electric, gas, oil or water in your home?: no Have you or anyone in your house had to go without enough food to eat?: no Has lack of transportation kept you from medical appointments or from doing things needed for daily living?: no Has anyone in your support network made you feel unsafe for any reason?: no Social Determinants of Health Comments(SDOH Details): pt lives at the [facility] Health Related Social Needs Health related social needs details: no problems noted.
--- NOTE | 2024-07-05 14:36 | PGE_ITS ---
Date of Service Date of service: 07/05/24 Time of Service: 14:36 Assessment and Plan Assessment and plan (1) Recurrent pneumonia: Status: Acute Assessment and plan: I agree with impression that this is likely aspiration given the history we have of an acute change associated with some mental status depression and her known history. For now given recent hospitalizations will treat with cefepime. Recent cultures reviewed and no resistant organisms. MRSA swab sent, add vancomycin if positive Procalcitonin low. This could be repeated in 48 hours and antibiotics stopped i f clinically back to baseline suggesting pneumonitis rather than pneumonia. 07/04/2024 Patient was a late night admission last night. Currently she is being treated for aspiration pneumonia Cefepime 2 g IV every 12 hours. She was given Rocephin ER last night. Recheck CBC as well as procalcitonin and lactic acid in the a.m. Patient's white count is 8.4 and I do not see a significant left shift. Her chest x-ray shows suspected right pleural effusion as well as increased opacities over the right hemithorax. In reviewing her chart she did get a CT of her chest abdomen and pelvis on June 06, 2024 so I will repeat this at this time. 07/05/2024 Patient does not seem to be responding to cefepime and I will continue this for now. I will place a copy of her x-ray report in her chart as well. Patient Name: Elvi Vick Unit #: [id number] Loc: ICU Ordering Provider: Manohar Trejo M.D. Status: ADM IN Primary Care Provider: Iesha Leary Date of Exam: 07/03/24 Sex: F Admission Date: 07/03/24 : 1940 Age: 83 Exam(s) XR PORTABLE CHEST AP EXAM: XR PORTABLE CHEST AP CLINICAL HISTORY: cough TECHNIQUE: 2D digital imaging was performed. COMPARISON: CR XR CHEST 2V PA LATERAL from 03/29/2024 CR XR CHEST 2V PA LATERAL from 05/17/2024 CR XR PORTABLE CHEST AP POST LINE from 05/27/[address] CHEST/ABD/PEL W from 06/06/2024 CR,XR XR PORTABLE CHEST AP from 06/20/2024 FINDINGS: Limited by overlying monitoring leads, oxygen tubing, poor pulmonary inflation as well as under penetration. The patient's chin overlies the apices. LUNGS: Compared with the prior exam, there is increased density seen in the right lower lung field. There also increased interstitial markings which show appear greater on the right and appear chronic. Tiny bilateral pleural effusions. HEART: Grossly normal size. AORTA: Tortuous. BONES: Severe degenerative changes in the shoulders and spine. Old right proximal humeral fracture. Soft tissues: Unremarkable. IMPRESSION: Right lower lobe consolidation. Chronic interstitial changes. Tiny bilateral pleural effusion (2) Aspiration into airway: Status: Acute Assessment and plan: As above. A/w polypharmacy with sedating medications. She has had RACE STEWARD evaluations at recent admissions, swallowing liquids fine for me so not a chronic issue. It is possible this episode related to addition of liquid morphine to other opio ids, but this isn't clear. 07/04/2024 According to nursing staff patient has been started on liquid morphine which could have contributed to her decrease in mental status. In reviewing her H&P she was given naloxone without significant improvement while she was at the group home facility. If this was related to her narcotic use and was expected to quicker and more pronounced recovery. Exact etiology remains unknown at this point. 07/05/2024 Making her pain management as needed and is using it on a scheduled basis could lead to accidental overdose including the risk of increasing aspiration. I will place a consult for speech eval to see if anything can modified barium swallow would be appropriate. I yellow-brown Qualifiers: Encounter type: initial encounter Qualified Code(s): T17.908A - Unspecified foreign body in respiratory tract, part unspecified causing other injury, initial encounter (3) Acute and chronic respiratory failure with hypoxia: Status: Acute Assessment and plan: Secondary to above, requiring 3 liters oxygen after event, above her chronic 2 liters. 07/04/2024 Patient is currently on 1 L satting 92% at home. She is on 2 L chronically so we will see if I can get this increase. (4) Hypotension: Assessment and plan: She has had some low BPs, but BP was normal during my evaluation. She has chornic low BPs and is on midodrine. I don't think given the pattern that this is sepsis, but covering with cefepime and monitor in ICU overnight in case she becomes unstable. 07/04/2024 Patient has a long history of hypotension and is on midodrine currently her blood pressure is 112/92. Continue with the current medications. Qualifiers: Hypotension type: hypotension due to hypovolemia Qualified Code(s): E86.1 - Hypovolemia (5) DVT prophylaxis: Status: Acute Assessment and plan: enoxaparin (6) ACP (advance care planning): Status: Acute Assessment and plan: Elvi has had decliniing health and many recent admissions. She has been working with palliative care. Will consult for continuity. She is DNR/DNI Subjective Subjective Interval history since last seen: Patient seen and examined in her room this a.m. Plan of care discussed with patient as well as multidisciplinary rounds team. There was discussion about the patient being delirious yesterday, but today she is alert and oriented to person place and time. Patient states that she has had a swallow study in the past But cannot remember the results or what hospital she had it in. Exam Narrative Exam Narrative: GEN: Alert and oriented x3. Pleasant and cooperative, gives vague history but can answer direct questions. No acute distress at rest. HEENT: Head atraumatic. Conjunctiva clear, no icterus. Pupils 1-2mm rodriguez, reactive, EOMI. no rhinorrhea. MM mildly dry, edentulous, OP without lesion. Neck is supple with no masses or lymphadenopathy, trachea midline LUNGS: Mild tachypnea after speaking, but full sentences. Rales in right base. Slight diffuse wheezing CV: RRR with no murmurs, gallops, or rubs. ABD: active bowel sounds, soft, nontender and nondistended. No masses. EXT: no cyanosis, clubbing, or edema MSK: No joint redness or swelling NEURO: CN 2-12 grossly intact. Normal movement of 4 extremities. Normal speech and coordination. No tremor. Some rhythmic mouth movements during interview. SKIN: No rashes or open wounds. PSYCH: normal mood and affect Objective Last Vital Signs Temp 37.0 C 07/05/24 11:50 Pulse 98 H 07/05/24 11:50 Resp 15 07/05/24 11:50 BP 134/70 07/05/24 11:50 Pulse Ox 93 07/05/24 11:50 Laboratory Results - last 24 hr 07/05/24 06:50 WBC 7.07 RBC 3.29 L Hgb 9.1 L Hct 29.0 L MCV 88 D MCH 27.7 MCHC 31.4 L RDW 15.6 H Plt Count 328 MPV 10.7 VBG Lactate 0.6 Sodium 145 Potassium 4.6 D Chloride 106 Carbon Dioxide 34.9 H Anion Gap 4.1 BUN 12 Creatinine 0.6 D Est GFR (CKD-EPI 2020) 89.01 Glucose 99 Calcium 9.5 Total Bilirubin 0.32 AST 89 H ALT 76 H Alkaline Phosphatase 102 Total Protein 6.8 Albumin 2.2 L Time Spent with Patient Time Spent with Patient: 35-49 minutes Time was spent: preparing to see the patient(eg.review tests), obtaining and/or reviewing separately otained hiistory, ordering medications,tests, procedures, referring, communicating with other health vocational childcare teacher, indepentently interpreting results, counseling the patient and care coordination
--- NOTE | 2024-07-05 16:37 | SP_ITS ---
Date of service: 07/05/24 Time of Service: 16:38 Subjective Clinical (Bedside) Swallow Evaluation - Inpatient Speech Language Pathology Referred by: Chandler Espino MD Start time: 16:20 End time: 16:35 Total patient contact: 15m Referral Type: Routine Swallow Consult Precautions: Standard, DNR/DNI Reason for Referral/HPI: Patient is an 83 y.o F with chronic respiratory failure on home O2, GERD, Hiatal hernia, ILD associated with chronic aspiration (?2/2 reflux?), who has presented with recurrent R sided pneumonias over the past several months. She was brought to [facility] ED several days ago from the [facility] due to a period of reduced responsiveness with mild fever. She was evaluated at bedside via clinical swallow evaluation during previous admission and presented with intermittent delayed vs baseline wet cough between sips of liquid, but without any immediate overt s/sx aspiration, wet voice changes, or s/sx immediately concerning for yasir aspiration. There was some question of role of reflux in her respiratory profile as well. MINIATURE TRAIN DRIVER IMPRESSIONS & RECOMMENDATIONS: Patient presents with overall stable swallow function, with some intermittent coughing, difficult to distinguish from baseline cough and therefore without any definitive s/sx yasir/overt aspiration noted on screening with thin liquids this date. Continue to suspect possible reflux component (patient is with known severe reflux in context of large hiatal hernia). However, given recent increase in repeat R sided pneumonias and somewhat questionable hyo-laryngeal movement to palpation, recommend MBSS if possible this admission to determine if silent prandial aspiration is present and determine overall aspiration risk, assess for effective safety strategies, and determine appropriate plan of care. MINIATURE TRAIN DRIVER discussed case with MD who will place orders. Tentative plan in place to do this on 07/08 at 9 am. FURTHER INPATIENT MINIATURE TRAIN DRIVER SERVICES: Patient to be followed while on unit Modified Barium Swallow Study to be completed as able DISCHARGE RECOMMENDATIONS: Recommend MINIATURE TRAIN DRIVER services either at SNF or Home Health - PENDING MBSS RESULTS Diet modification is indicated as follows for the purpose of reduced risk of choking, reduced mastication abilities, energy conservation, reduced work of breathing due to pulmonary status. Diet Recommendations: ? SOLIDS: 6-Soft & Bite-Sized Solids LIQUIDS: 0-Thin Liquids MEDICATIONS: Whole 1 at a time With 4-Purees RISK MANAGEMENT: Level of Assistance/Supervision: Distant supervision for all PO intake Positioning and environment: PO intake only when awake/alert? As upright as tolerated, use HOB controls/bed tilt to achieve upright positioning Oral hygiene Before/after PO intake Using friction with toothbrush on all oral structures as tolerated Strategies/Adaptations/Assistive Equipment: Small sips Small bites Slow rate of intake Reflux Precautions: Small+frequent meals throughout day Maintain fully upright position at least 30 minutes after meals Avoid meals/snacks 2-3 hours prior to reclining/sleeping Sleep with head of bed elevated to reduce likelihood of nocturnal reflux ---- Education Provided to: Nursing Patient Physician Topics Addressed: anatomy/physiology of swallowing mechanism definition and impacts of aspiration impact of current diagnoses on swallow function role of MINIATURE TRAIN DRIVER in management of swallow disorders overt s/sx to monitor for re: potential aspiration of food / liquids relationship between reflux, GERD and swallow fxn relationship between respiratory function and deglutition rationale and instruction for additional risk management strategies as below SUBJECTIVE: Patient received: alert/awake. Agreeable to evaluation. Pain Reported N/A Baseline Swallow Function: Patient denies swallowing difficulty prior to admission and eats a regular diet at baseline. Patient reports NO DENTURES currently, but does wear them at baseline. 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 Speech: WFL Oral Mechanism Examination: Edentulous but patient states she does have dentures typically. Oral mucosa is WFL. Good oral care. Cranial Nerve Assessment: CN V ? Trigeminal Facial Sensation WNL Jaw Strength/ROM WNL ?WNL CN VII- Facial WNL labial ROM, strength, coordination. WNL lingual sensation WNL CN IX ? Glossopharyngeal WNL palatal elevation with phonation. No evidence of nasal emissions WNL CN X ? Vagus WNL Vocal quality and volume. Strong/sharp volitional cough WNL CX XII ? Hypoglossal WNL lingual ROM, strength, coordination WNL PO Intake: Trials Assessed: IDDSI 0 Thin Liquids Oral Phase Findings: WFL Pharyngeal Phase Findings: Suspect Reduced hyolaryngeal elevation/excursion Cough after swallow - delayed VS baseline cough as noted prior to sips of liquid. Patient denies sensation of aspiration/penetration. ? [place] Swallow Protocol Results: FAIL ? S/sx aspiration observed (delayed) PLAN: Frequency: 2-3x/week for 1-2 weeks No further MINIATURE TRAIN DRIVER services indicated at this time. Please re-refer as needed. Goals: Data Control Clerk Supervisor Goals: Patient will remain free from aspiration-related illness, malnutrition, and dehydration. Patient/family will verbalize comprehension of education provided re: dx (pending MBSS), strategies to maximize functioning, and role of ST. Short Term Goals: Patient will participate in MBSS (inpatient or outpatient) to determine aspiration risk and appropriate risk management strategies. Patient will tolerate Soft/Bite Sized Diet and Thin liquids without overt s/s aspiration across 2/2 visits. Patient will tolerate PO trials for consideration of diet upgrade without overt s/s aspiration across 2/2 visits.
[2024-07-05] MEDS: traZODone 100 MG TAB 200 MG PO (21:08)
[2024-07-05] MEDS: HYDROmorphone 2 MG TAB PO (21:12)
[2024-07-05] MEDS: QUEtiapine 50 MG TAB PO (21:12)
[2024-07-06] VITALS (11 sets, daily range): BP systolic 118–135; BP diastolic 66–85; PULSE 74–93; RESP 2–20; TEMP 36.4–37.2; O2SAT 93–99
[2024-07-06 06:41] LABS: Lactate 0.4 mmol/L (0.6-1.4)
[2024-07-06 06:44] LABS: HCT 29.2 % (36.0-46.0); HGB 9.3 g/dL (11.2-15.7); MCH 27.9 pg (27.0-33.0); MCHC 31.8 % (32.0-36.0); MCV 88 fL (80-95); MPV 10.6 fL (8.0-11.0); Platelet Count 338 10^3/uL (130-400); RBC 3.33 10^6/uL (3.93-5.22); RDW 15.9 % (11.7-14.6); RDW-SD 51.7 fL; WBC 6.18 10^3/uL (4.4-10.8)
[2024-07-06 07:05] LABS: ALT 60 U/L (14-59); AST 50 U/L (15-37); Albumin 2.2 g/dL (3.4-5.0); Alkaline Phosphatase 95 U/L (46-116); BUN 9 mg/dL (7-18); CREATININE 0.6 mg/dL (0.55-1.02); Calcium 9.3 mg/dL (8.5-10.1); Chloride 110 mmol/L (98-107); Estimated GFR 89.01 (mL/min/1.73m2); Glucose 95 mg/dL (74-106); Sodium 145 mmol/L (136-145); Total Protein 6.4 g/dL (6.4-8.2)
[2024-07-06] MEDS: Vitamins B Comp w/C TAB 1 TAB PO (07:50)
[2024-07-06] MEDS: Pregabalin 25 MG CAP 75 MG PO ×3 (07:50→20:28)
[2024-07-06] MEDS: Sucralfate 1 GM TAB PO ×3 (07:50→15:41)
[2024-07-06] MEDS: Potassium Chloride 20 MEQ TABCR PO ×3 (07:50→20:27)
[2024-07-06] MEDS: Ascorbic Acid 500 MG TAB 1000 MG PO ×2 (07:51→20:26)
[2024-07-06] MEDS: Lactobacillus Acidophilus CAP 1 CAP PO (07:51)
[2024-07-06] MEDS: DULoxetine 30 MG CAP 60 MG PO ×2 (07:51→20:26)
[2024-07-06] MEDS: Pantoprazole 40 MG TABCR PO (07:51)
[2024-07-06] MEDS: Loratidine 10 MG TAB PO (07:52)
[2024-07-06] MEDS: Multivitamin TAB 1 TAB PO (07:52)
[2024-07-06] MEDS: Midodrine 2.5 MG TAB 5 MG PO ×3 (07:52→20:26)
[2024-07-06] MEDS: Montelukast 10 MG TAB PO (07:52)
[2024-07-06] MEDS: Ferrous Sulfate 325 MG TAB PO (07:52)
[2024-07-06] MEDS: Vitamin E 400 UNITS CAP PO (07:52)
[2024-07-06] MEDS: Magnesium Gluconate 500 MG TAB PO ×2 (07:52→20:28)
[2024-07-06] MEDS: Glucosamine 500 MG CAP PO ×2 (07:53→20:26)
[2024-07-06 07:59] LABS: Procalcitonin < 0.10 ng/mL
[2024-07-06] MEDS: Normal Saline Flush 10 ML SYR IVP ×3 (08:13→20:29)
[2024-07-06] MEDS: Enoxaparin 40 MG/0.4 ML SYR SC (08:13)
[2024-07-06] MEDS: Albuterol/Ipratropium 3 ML UPD VIAL IH ×3 (08:15→19:46)
[2024-07-06] MEDS: Budesonide 0.5 MG/2 ML UPD VIAL IH (08:27)
[2024-07-06] MEDS: CEFEPIME 2 GM in Normal Saline 100 ML IVPB ×2 (09:07→15:40)
[2024-07-06] MEDS: Fluticasone NASAL SPRAY 16 GM BTL NS ×2 (09:08→20:29)
--- NOTE | 2024-07-06 14:25 | PGE_ITS ---
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 Has been seen by pulmonary and has been referred to general surgery for further evaluation of GERD and diaphragmatic hernia. (2) Recurrent pneumonia: Status: Acute Assessment and plan: With history of interstitial pulmonary disease thought to be due to chronic aspiration, hiatal hernia and GERD Seen by pulmonary in April 2024 plan was for referral to general surgery for possible EGD, modified barium swallow study, and recommendations for head of bed elevated greater than 30 degrees for at least 2 pillows, Additionally she was started on PPI twice daily dosing omeprazole 20 twice daily and as needed albuterol. Nocturnal pulse oximetry did reveal a need for nocturnal oxygen. White count remains normal, lactic acid normal, with procalcitonin less than 0.1 no fever and has been hemodynamically stable. Pediatric blood culture tube positive for gram-positive cocci suspect contamination, the rest of her cultures have remained negative to date Previous sputum culture did grow Klebsiella pneumonia which was sensitive to the cephalosporins. Will continue cefepime day 4 of 5 Speech evaluation pending for Monday (3) DVT prophylaxis: Status: Acute Assessment and plan: Continue enoxaparin daily (4) Gastroesophageal reflux disease: Status: Chronic Assessment and plan: With history of hiatal hernia continue pantoprazole daily Tums as needed Was referred to outpatient to GI for upper endoscopy which is still pending Qualifiers: Esophagitis presence: esophagitis presence not specified Qualified Code(s): K21.9 - Gastro-esophageal reflux disease without esophagitis (5) Discharge planning issues: Status: Acute Assessment and plan: Anticipated discharge back to the [facility] once medically stable She has been followed by palliative in the past and has recently completed a close form wishing to be DNR/DNI discussed with DR Espino Subjective Subjective Patient reports: no new complaints, tolerating liquids well, tolerating a regular diet and afebrile; denies shortness of breath Exam Narrative Exam Narrative: Elderly female of stated age in no acute distress sitting in the bed, head is atraumatic eyes nonicteric noninjected EOMs intact oral mucosa slightly dry no oral exudate neck is supple full range of motion no JVD cardiovascular regular rate and rhythm her respirations are even and unlabored breath sounds diminished in the bases her abdomen is obese soft nontender with positive bowel sounds moves all extremities equally neurologic she is awake alert oriented no focal deficits is a poor historian with some evidence of mild cognitive impairment. Psychiatric appropriate mood and behavior no behavioral disturbances Objective Last Vital Signs Temp 37.2 C 07/06/24 08:19 Pulse 93 H 07/06/24 08:28 Resp 19 07/06/24 08:28 BP 135/85 07/06/24 08:19 Pulse Ox 94 07/06/24 08:28 Laboratory Results - last 24 hr 07/06/24 06:35 WBC 6.18 RBC 3.33 L Hgb 9.3 L Hct 29.2 L MCV 88 MCH 27.9 MCHC 31.8 L RDW 15.9 H Plt Count 338 MPV 10.6 VBG Lactate 0.4 L Sodium 145 Potassium 4.0 Chloride 110 H Carbon Dioxide 33.0 H Anion Gap 2.0 L BUN 9 Creatinine 0.6 Est GFR (CKD-EPI 2020) 89.01 Glucose 95 Calcium 9.3 Total Bilirubin 0.40 AST 50 H ALT 60 H Alkaline Phosphatase 95 Total Protein 6.4 Albumin 2.2 L Procalcitonin < 0.10 Time Spent with Patient Time Spent with Patient: 35-49 minutes Time was spent: preparing to see the patient(eg.review tests), obtaining and/or reviewing separately otained hiistory, ordering medications,tests, procedures, indepentently interpreting results and counseling the patient
[2024-07-06] MEDS: QUEtiapine 50 MG TAB PO (20:25)
[2024-07-06] MEDS: HYDROmorphone 2 MG TAB PO (20:26)
[2024-07-06] MEDS: traZODone 100 MG TAB 200 MG PO (20:28)
[2024-07-07] VITALS (11 sets, daily range): BP systolic 112–142; BP diastolic 58–84; PULSE 75–93; RESP 2–22; TEMP 35.7–37.5; O2SAT 95–99
[2024-07-07] MEDS: CEFEPIME 2 GM in Normal Saline 100 ML IVPB ×3 (00:23→16:32)
[2024-07-07] MEDS: Normal Saline Flush 10 ML SYR IVP ×3 (00:24→20:05)
[2024-07-07] MEDS: Pantoprazole 40 MG TABCR PO (09:11)
[2024-07-07] MEDS: Lactobacillus Acidophilus CAP 1 CAP PO (09:12)
[2024-07-07] MEDS: DULoxetine 30 MG CAP 60 MG PO ×2 (09:12→20:03)
[2024-07-07] MEDS: Midodrine 2.5 MG TAB 5 MG PO ×3 (09:13→20:04)
[2024-07-07] MEDS: Ascorbic Acid 500 MG TAB 1000 MG PO ×2 (09:13→20:03)
[2024-07-07] MEDS: Loratidine 10 MG TAB PO (09:14)
[2024-07-07] MEDS: Vitamin E 400 UNITS CAP PO (09:14)
[2024-07-07] MEDS: Multivitamin TAB 1 TAB PO (09:14)
[2024-07-07] MEDS: Vitamins B Comp w/C TAB 1 TAB PO (09:14)
[2024-07-07] MEDS: Magnesium Gluconate 500 MG TAB PO ×2 (09:14→20:04)
[2024-07-07] MEDS: Montelukast 10 MG TAB PO (09:14)
[2024-07-07] MEDS: Sucralfate 1 GM TAB PO ×3 (09:14→16:34)
[2024-07-07] MEDS: Pregabalin 25 MG CAP 75 MG PO ×3 (09:15→20:03)
[2024-07-07] MEDS: Glucosamine 500 MG CAP PO ×2 (09:15→20:05)
[2024-07-07] MEDS: Ferrous Sulfate 325 MG TAB PO (09:15)
[2024-07-07] MEDS: Potassium Chloride 20 MEQ TABCR PO ×3 (09:15→20:04)
[2024-07-07] MEDS: Enoxaparin 40 MG/0.4 ML SYR SC (09:16)
[2024-07-07] MEDS: Fluticasone NASAL SPRAY 16 GM BTL NS ×2 (09:21→20:05)
--- NOTE | 2024-07-07 10:07 | PGE_ITS ---
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 respiratory status stable Has been seen by pulmonary and has been referred to general surgery for further evaluation of GERD and diaphragmatic hernia. (2) Recurrent pneumonia: Status: Acute Assessment and plan: With history of interstitial pulmonary disease thought to be due to chronic aspiration, hiatal hernia and GERD Seen by pulmonary in April 2024 plan was for referral to general surgery for possible EGD, modified barium swallow study pending for 9 am tomorrow morning, NPO after midnight and recommendations for head of bed elevated greater than 30 degrees for at l east 2 pillows, continue PPI and as needed albuterol. Nocturnal pulse oximetry did reveal a need for nocturnal oxygen. White count remains normal, lactic acid normal, with procalcitonin less than 0.1 no fever and has been hemodynamically stable. Pediatric blood culture tube positive for gram-positive cocci suspect contamination, the rest of her cultures have remained negative to date Previous sputum culture did grow Klebsiella pneumonia which was sensitive to the cephalosporins. Will complete cefepime day 5 of 5 Speech evaluation pending for Monday with MBSS at 9 am (3) DVT prophylaxis: Status: Acute Assessment and plan: Continue enoxaparin daily (4) Gastroesophageal reflux disease: Status: Chronic Assessment and plan: With history of hiatal hernia continue pantoprazole daily Tums as needed Was referred to outpatient to GI for upper endoscopy which is still pending Qualifiers: Esophagitis presence: esophagitis presence not specified Qualified Code(s): K21.9 - Gastro-esophageal reflux disease without esophagitis (5) Discharge planning issues: Status: Acute Assessment and plan: Anticipated discharge back to the [facility] once medically stable She has been followed by palliative in the past and has recently completed a close form wishing to be DNR/DNI discussed with DR Espino Subjective Subjective Patient reports: no new complaints, tolerating liquids well, tolerating a regular diet and afebrile; denies shortness of breath Exam Narrative Exam Narrative: Elderly female of stated age in no acute distress sitting in the bed, head is atraumatic eyes nonicteric noninjected EOMs intact oral mucosa slightly dry no oral exudate neck is supple full range of motion no JVD cardiovascular regular rate and rhythm her respirations are even and unlabored breath sounds diminished in the bases her abdomen is obese soft nontender with positive bowel sounds moves all extremities equally neurologic she is awake alert oriented no focal deficits is a poor historian with some evidence of mild cognitive impairment. Psychiatric appropriate mood and behavior no behavioral disturbances Objective Last Vital Signs Temp 36.7 C 07/07/24 08:23 Pulse 81 07/07/24 08:23 Resp 18 07/07/24 08:23 BP 142/84 H 07/07/24 08:23 Pulse Ox 96 07/07/24 08:23 Time Spent with Patient Time Spent with Patient: 35-49 minutes Time was spent: preparing to see the patient(eg.review tests), obtaining and/or reviewing separately otained hiistory, ordering medications,tests, procedures, indepentently interpreting results and counseling the patient
[2024-07-07] MEDS: Albuterol/Ipratropium 3 ML UPD VIAL IH ×3 (13:03→20:17)
[2024-07-07] MEDS: Calcium Carbonate *TUMS* 500 MG CHEW 2000 MG PO (18:18)
[2024-07-07] MEDS: QUEtiapine 50 MG TAB PO (20:03)
[2024-07-07] MEDS: traZODone 100 MG TAB 200 MG PO (20:04)
[2024-07-07] MEDS: HYDROmorphone 2 MG TAB PO (20:04)
[2024-07-08] MEDS: CEFEPIME 2 GM in Normal Saline 100 ML IVPB ×2 (00:21→08:24)
[2024-07-08 06:00] VITALS: BP 124/71; PULSE 78; RESP 20; TEMP 36.5; O2SAT 97
[2024-07-08 06:06] LABS: Abs Immature Grans 0.13 10^3/uL (0.0-0.06); Absolute Basophil Count 0.03 10^3/uL (0.0-0.2); Absolute Eosinophil Count 1.01 10^3/uL (0.0-0.7); Absolute Lymphocyte Count 1.94 10^3/uL (1.2-3.4); Absolute Monocyte Count 0.57 10^3/uL (0.1-0.8); Absolute Neutrophil Count 3.44 10^3/uL (1.2-6.7); Basophils % 0.4 %; Eosinophils % 14.2 %; HCT 32.1 % (36.0-46.0); HGB 9.9 g/dL (11.2-15.7); Immature Grans % 1.8 %; Lymphocytes % 27.2 %; MCH 27.4 pg (27.0-33.0); MCHC 30.8 % (32.0-36.0); MCV 89 fL (80-95); MPV 10.7 fL (8.0-11.0); Neutrophils % 48.4 %; Platelet Count 326 10^3/uL (130-400); RBC 3.61 10^6/uL (3.93-5.22); RDW-SD 52.3 fL; WBC 7.12 10^3/uL (4.4-10.8)
[2024-07-08 06:36] LABS: Anion Gap 4.6 mmol/L (3-11); BUN 13 mg/dL (7-18); CO2 32.4 mmol/L (21.0-32.0); CREATININE 0.7 mg/dL (0.55-1.02); Calcium 9.5 mg/dL (8.5-10.1); Chloride 108 mmol/L (98-107); Estimated GFR 85.76 (mL/min/1.73m2); Glucose 105 mg/dL (74-106); Potassium 4.2 mmol/L (3.5-5.1); Sodium 145 mmol/L (136-145)
--- NOTE | 2024-07-08 07:56 | W.PALLCONSUL ---
Date of service: 07/08/24 Time of Service: 07:56 History of Present Illness History of Present Illness Chief Complaint: Aspiration Pneumonia with hypoxia Narrative: From H and P History of Present Illness History of Present Illness Chief Complaint: cough, short of breath Narrative: 83 yo F with history of chronic hypoxic respiratory failure on 2 liters home oxygen, ILD associated with chronic aspiration, with 4 admissions in the past two months for recurrent right sided pneumonias most recently 06/20 to 06/25 who was sent from the [facility] with respiratory distress after an episode of decreased responsiveness at the [facility]. The patient is unable to relate a linear history, mentions she gets episodes like seizures but doesn't remember what happened this afternoon/evening. (No seizure-like activity was witnessed, no known history of seizures). Per report from [facility] she was found to be minimally responsive for a period of time, nasal naloxone given without effect. This was around 7pm. When EMS arrived she was alert and oriented. Temperature was 100.1. At that time increased respiratory distress and cough were noted and she was brought to the ED. The patient feels a little lightheaded when she tries to sit up but but no fevers/chills. She is thirsty, mouth feels dry. She denies chest, abdominal, or other pain. She has had no dysuria or bowel changes, no nasal congestion or other cold symptoms. INTERIM HX: Elvi states that she is starting to feel better. She is breathing easier. She is tired. We did talk about her barium swallow being canceled and postponed until Monday. She was disappointed as she would like this to be done as soon as possible. I had met with and during her last admission and at that time we talked about perhaps going on comfort care. She was wanting to return to where her sister lives in [place] to a jail that would be able to care for her. As of yet her sister has not been able to find 1. When we talked about comfort care she felt that when she returned closer to her sister and had her sister support that she would consider this. We had talked about discussing this further when she was back at the [facility]. Unfortunately she returned to the hospital prior to our meeting at the [facility]. She is still ambivalent about remaining at the [facility] despite worsening disease. She still feels that she needs to return to the hospital and then get the care she needs and again return to the [facility]. Her past medical history is significant for a hip repair which had serious complications. She is not able to go through revision due to her clinical status. There is concerns about chronic aspiration pneumonia and this being the etiology of her hypoxia. Staff has noted that she does not do as much as she could to help herself. She herself states that due to her pain it is difficult for her Assessment and Plan Assessment and plan (1) ACP (advance care planning): Status: Acute (2) Gastroesophageal reflux disease: Status: Chronic Qualifiers: Esophagitis presence: esophagitis presence not specified Qualified Code(s): K21.9 - Gastro-esophageal reflux disease without esophagitis (3) Acute and chronic respiratory failure with hypoxia: Status: Acute (4) Displaced intertrochanteric fracture of left femur, subsequent encounter for closed fracture with malunion: Status: Acute Assessment and plan: I am glad that she is doing better. We talked about discussing the comfort care transition when I am at the [facility] the next time. She did give me permission to talk to her sister about the progress in having her transferred closer to her sister in [place] The barium swallow was done today as I am finishing up my note. Speech therapy did not feel that this was aspiration but more reflux. Patient spends a lot of her time laying on her back. I do think that it would be beneficial if she could sit up more. See recommendations by speech therapy Will continue to follow regarding the issues of transitioning to comfort care if appropriate COUNT INCLUDES THE [facility] All Active Problems (Updated 07/06/24 @ 17:24 by Elyssa Falcon NP) DVT prophylaxis (Acute) Acute and chronic respiratory failure with hypoxia (Acute) Aspiration into airway (Acute) Discharge planning issues (Acute) Gastroesophageal reflux disease (Chronic) ACP (advance care planning) (Acute) Recurrent pneumonia (Acute) Displaced intertrochanteric fracture of left femur, subsequent encounter for closed fracture with malunion (Acute) Medical History Chronic pain Pneumonia Sepsis associated hypotension Nail dystrophy Non-sustained ventricular tachycardia Respiratory failure Pneumonia Chronic hypoxic respiratory failure Pain due to internal orthopedic prosthetic device Lung disease Left hip pain Seasonal allergies Hypotension Intertrochanteric fracture of left femur S/P IM FIXATION 01/01/24 Acute UTI Skin ulcer DNR (do not resuscitate) 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 No heat for 1-1/2 days Dehydration, mild (09/22/14) Irritable bowel syndrome Hiatal hernia Gastroesophageal reflux disease Insomnia DJD (degenerative joint disease) Fibromyalgia Hyperlipidemia Allergic rhinitis Morbid obesity Fall (09/22/14) a. fell down and could not get up Frequent falls Alcohol withdrawal NSIP (nonspecific interstitial pneumonia) Fracture of right inferior pubic ramus Fracture of right superior pubic ramus Laceration of skin of right forearm Skin ulcer of lower leg Laceration of arm, right, complicated Fractured pelvis T12 compression fracture Acute exacerbation of chronic low back pain Fall Hiatal hernia IBS (irritable bowel syndrome) Hypertension Allergic rhinitis GERD (gastroesophageal reflux disease) DJD (degenerative joint disease) Hyperlipidemia Hypercholesterolemia Fibromyalgia Depression Anemia Alcohol abuse Insomnia Person living alone (09/22/14) Surgical History History of surgery a. S/P open right ankle fracture/dislocation. b. Left knee arthroscopy. c. Right wrist fracture repair. d. T/A as a child. Tonsillectomy and adenoidectomy Repair fracture right wrist ORIF right ankle Colonoscopy - MAC (11/18/16) Arthroplasty of knee left Family History Mother Dementia Maternal Aunt Diabetes Social History Smoking/Tobacco Use Status: Former Tobacco Use Smoking risk assessment performed?: Yes Alcohol Intake: current Alcohol Intake frequency: 0-2 drinks per day Alcohol type: wine Counseling given: Yes Details: 1-2 bottle of wine/day Drug use: Current Sobriety Substance use type: does not use and marijuana Details: two tokes for sleep Housing: jail Do you feel safe at home: Yes Do you feel safe in your relationship?: Yes Additional Social history: [facility] AT [facility] Exam Narrative Exam Narrative: And is feeling better after being at the hospital for few days. She states that she is starting to breathe better. Her respiratory there are some rales posteriorly especially on the left side. No wheezing noted. Very little airflow probably due to her body habitus. Her heart appears to be in sinus at this time. Her abdomen is tender throughout. I did not move her lower extremities due to her hip problem. She states that she is very very cold. She was very cooperative at the time of the exam. Results Last Vital Signs Temp 97.7 F 07/08/24 06:00 Pulse 78 07/08/24 06:00 Resp 20 07/08/24 06:00 BP 124/71 07/08/24 06:00 Pulse Ox 97 07/08/24 06:00 Labs 07/09/24 06:30 07/09/24 06:30 Labs: Laboratory Results - last 24 hr 07/08/24 05:40 WBC 7.12 RBC 3.61 L Hgb 9.9 L Hct 32.1 L MCV 89 MCH 27.4 MCHC 30.8 L RDW 16.0 H Plt Count 326 MPV 10.7 Immature Gran % 1.8 Neutrophils % 48.4 Lymphocytes % 27.2 Monocytes % 8.0 Eosinophils % 14.2 Basophils % 0.4 Nucleated RBC % 0.0 Absolute Neutrophils 3.44 Absolute Lymphocytes 1.94 Absolute Monocytes 0.57 Absolute Eosinophils 1.01 H Absolute Basophils 0.03 Sodium 145 Potassium 4.2 Chloride 108 H Carbon Dioxide 32.4 H Anion Gap 4.6 BUN 13 Creatinine 0.7 Est GFR (CKD-EPI 2020) 85.76 Glucose 105 Calcium 9.5 Imaging Chest x-ray: report reviewed (FINDINGS: Limited by overlying monitoring leads, oxygen tubing, poor pulmonary inflation as well as under penetration. The patient's chin overlies the apices. LUNGS: Compared with the prior exam, there is increased density seen in the right lower lung field. There also increased interstitial ma) Additional studies: Modified Barium Swallow Study Findings: No penetration/aspiration. Noting CP hypertrophy with liquids and puree, though this did not appear to result in any significant pyriform sinus residue and did not impede transit through the UES for 13mm barium tablet. Do not suspect prandial aspiration to be a significant factor in pulmonary profile, reflux is a more likely component if aspiration is suspected. Remain on soft/bite size solid and thin liquids diet. No further [facility] [employer] services are indicated at this time. Reinforce reflux precautions with nursing and caregivers at discharge location. Diet recommendation: IDDSI Level 6-Soft & Bite-Sized Solids 0-Thin Liquids -Please see further details at [email or web address] -Diet texture modification is per patient's preference; please adjust diet textures at patient's discretion & collaboration with care team. Medication Administration: One at a time with thin liquids Risk Management: Behavioral reflux precautions, including upright position during + 90 mins after meals. Sleep with HOB at incline to reduce likelihood of night reflux/aspiration. Small/more frequent meals throughout day to reduce reflux. Small bites, approx [id number] Small sips, approx 10 mL Control risk factors for aspiration pneumonia via (a) thorough oral hygiene & (b) maintaining physical mobility as tolerated Time Spent Time Spent with Patient Time Spent(min): 28
[2024-07-08 08:19] VITALS: PULSE 79; RESP 16; RESP 2; O2SAT 99
[2024-07-08] MEDS: Albuterol/Ipratropium 3 ML UPD VIAL IH (08:19)
[2024-07-08] MEDS: Budesonide 0.5 MG/2 ML UPD VIAL IH (08:21)
[2024-07-08] MEDS: Enoxaparin 40 MG/0.4 ML SYR SC (08:21)
[2024-07-08] MEDS: Montelukast 10 MG TAB PO (08:22)
[2024-07-08] MEDS: Glucosamine 500 MG CAP PO ×2 (08:22→20:08)
[2024-07-08] MEDS: Benzonatate 100 MG CAP PO (08:22)
[2024-07-08] MEDS: Midodrine 2.5 MG TAB 5 MG PO ×3 (08:23→20:08)
[2024-07-08] MEDS: Magnesium Gluconate 500 MG TAB PO ×2 (08:23→20:08)
[2024-07-08] MEDS: Sucralfate 1 GM TAB PO ×3 (08:23→16:55)
[2024-07-08] MEDS: Pregabalin 25 MG CAP 75 MG PO ×3 (08:23→20:08)
[2024-07-08] MEDS: Lactobacillus Acidophilus CAP 1 CAP PO ×3 (08:23→20:07)
[2024-07-08] MEDS: Vitamins B Comp w/C TAB 1 TAB PO (08:23)
[2024-07-08] MEDS: Ascorbic Acid 500 MG TAB 1000 MG PO ×2 (08:23→20:07)
[2024-07-08] MEDS: Multivitamin TAB 1 TAB PO (08:23)
[2024-07-08] MEDS: Vitamin E 400 UNITS CAP PO (08:23)
[2024-07-08] MEDS: Pantoprazole 40 MG TABCR PO (08:24)
[2024-07-08] MEDS: Potassium Chloride 20 MEQ TABCR PO ×3 (08:24→20:08)
[2024-07-08] MEDS: DULoxetine 30 MG CAP 60 MG PO ×2 (08:24→20:08)
[2024-07-08] MEDS: Ferrous Sulfate 325 MG TAB PO (08:24)
[2024-07-08] MEDS: Normal Saline Flush 10 ML SYR IVP ×3 (08:25→20:42)
[2024-07-08] MEDS: Loratidine 10 MG TAB PO (08:25)
[2024-07-08] MEDS: Calcitonin-Salmon, Synthetic 3.7 ML BTL NS (08:28)
[2024-07-08] MEDS: Fluticasone NASAL SPRAY 16 GM BTL NS (08:30)
[2024-07-08 08:31] VITALS: BP 125/64; PULSE 79; RESP 16; TEMP 36.4; O2SAT 99
[2024-07-08 08:33] VITALS: PULSE 72; RESP 16; RESP 2; O2SAT 99
--- NOTE | 2024-07-08 08:57 | PDOC.CMPRO ---
Date of service: 07/08/24 Time of Service: 08:57 Care Management Progress Note Progress Note Text Progress Note Text: Elvi was sitting up in bed when CM met with her. She was alert and oriented and engaged fully with CM. Elvi was smiling and informed CM that she was supposed to have a barium swallow today but it had to be postponed until tomorrow at 10 am. If all goes well she will be discharged back to the [facility] after the test. Elvi verbalized that she will be happy to go home. Elvi uses home oxygen at 2L/min at baseline and has been only requiring 1-1.5 L/min at [facility] to maintain oxygen saturation in the upper 90s. Discharge Potential Discharge Needs: Other (return to the [facility]) Anticipated Barriers to Discharge: Medical Status Patient/Family Education Needs: Review discharge instructions, discuss Ask Me Three Transportation: EMS Plan: Anticipate Elvi will return to the [facility] when medically stable. She will follow up with facility providers and plan of care and transport via EMS. CM will follow and continue to support discharge planning. SDOH(Care Management) Screening Will the Patient Participate in the Screening?: Yes Do you worry about having a steady place to live?: no Problems where you live: no known problems In the past 12 months, have you had to go without electric, gas, oil or water in your home?: no Have you or anyone in your house had to go without enough food to eat?: no Has lack of transportation kept you from medical appointments or from doing things needed for daily living?: no Has anyone in your support network made you feel unsafe for any reason?: no Social Determinants of Health Comments(SDOH Details): pt lives at the [facility] Related Social Needs Health related social needs details: no problems noted.
--- NOTE | 2024-07-08 09:51 | PGE_ITS ---
Date of Service Date of service: 07/08/24 Time of Service: 09:51 Assessment and Plan Assessment and plan (1) Acute and chronic respiratory failure with hypoxia: Status: Acute Assessment and plan: Multifactorial with history of interstitial lung disease and chronic aspiration with multiple admissions, fibrosis. respiratory status is back to baseline Seen by pulmonary with referral to general surgery for further evaluation of GERD and diaphragmatic hernia. (2) Recurrent pneumonia: Status: Acute Assessment and plan: With history of IDL, but pneumonia most likely due aspiration, hiatal hernia and GERD Seen by pulmonary in April 2024 plan was for referral to general surgery for possible EGD -Referral placed Modified barium swallow study still pending for 10 am tomorrow morning, unable to complete today -NPO after midnight Continue recommendations for head of bed elevated greater than 30 degrees for at least 2 pillows, On PPI and as needed albuterol. Confirm need for oxygen as per nocturnal pulse oximetry results . No leukocytosis, no hyperglycemia with normal procalcitonin; remains afebrile and hemodynamically stable As of 07/05/2024 1 bottle of pediatric blood culture was positive for gram- positive cocci suspect contamination with strep sanguini and Micrococcus luteus -no other positive cultures to date On previous admission, sputum culture did grow Klebsiella pneumonia which was sensitive to the cephalosporins. Completed course of cefepime day 5 of 5 today Speech evaluation pending for initially Monday with MBSS at 9 am; now rescheduled for Monday at 10 AM (3) DVT prophylaxis: Status: Acute Assessment and plan: Low molecular weight heparin subcutaneously daily (4) Gastroesophageal reflux disease: Status: Chronic Assessment and plan: Continue pantoprazole daily Tums as needed There was a plan for referral to was to outpatient to GI for upper endoscopy which is still pending Referral for general surgery at discharge for EGD Qualifiers: Esophagitis presence: esophagitis presence not specified Qualified Code(s): K21.9 - Gastro-esophageal reflux disease without esophagitis (5) Discharge planning issues: Status: Acute Assessment and plan: Anticipated discharge back to the [facility] once medically stable; most likely on 07/09/2024 status post speech and modified barium swallow results She has been followed by palliative in the past and has recently completed a close form wishing to be DNR/DNI Perative care consult discussed with DR Espino Subjective Subjective Patient reports: no new complaints, feels better, tolerating liquids well, tolerating a regular diet, flatus and diarrhea; denies blood in stool, nausea, vomiting, shortness of breath or fever Exam Narrative Exam Narrative: Constitutional The patient resting in bed without acute distress HENMT: Facial structures with normal appearance Eyes: Well aligned, intact ROM Neck:No meningeal signs Neuro:alert and oriented to self, person, place and situation. No focal deficits observed Resp: On baseline O2 supplementation, full word-sentences, clear lungs bilaterally, diminished posterior bases Cardio: regular rhythm, S1, S2, no murmur, capillary refill<3 sec., positive pulses to all 4 ext GI: Abdomen is not distended, soft non-tender, bowel sounds are present Integumentary: no opened wound/ rash on exposed skin Extremities: unable to bear weight d/t LLE past trauma Psych: RASS 0, congruent mood and normal affect. Objective Last Vital Signs Temp 36.4 C L 07/08/24 08:31 Pulse 72 07/08/24 08:33 Resp 16 07/08/24 08:33 BP 125/64 07/08/24 08:31 Pulse Ox 99 07/08/24 08:33 Laboratory Results - last 24 hr 07/08/24 05:40 WBC 7.12 RBC 3.61 L Hgb 9.9 L Hct 32.1 L MCV 89 MCH 27.4 MCHC 30.8 L RDW 16.0 H Plt Count 326 MPV 10.7 Immature Gran % 1.8 Neutrophils % 48.4 Lymphocytes % 27.2 Monocytes % 8.0 Eosinophils % 14.2 Basophils % 0.4 Nucleated RBC % 0.0 Absolute Neutrophils 3.44 Absolute Lymphocytes 1.94 Absolute Monocytes 0.57 Absolute Eosinophils 1.01 H Absolute Basophils 0.03 Sodium 145 Potassium 4.2 Chloride 108 H Carbon Dioxide 32.4 H Anion Gap 4.6 BUN 13 Creatinine 0.7 Est GFR (CKD-EPI 2020) 85.76 Glucose 105 Calcium 9.5 Time Spent with Patient Time Spent with Patient: >50 minutes Time was spent: preparing to see the patient(eg.review tests), obtaining and/or reviewing separately otained hiistory, ordering medications,tests, procedures, referring, communicating with other health rehab care assistant, indepentently interpreting results, counseling the patient and care coordination
[2024-07-08 15:25] VITALS: BP 121/70; PULSE 78; RESP 20; TEMP 36.8; O2SAT 100
[2024-07-08] MEDS: HYDROmorphone 2 MG TAB PO (20:08)
[2024-07-08] MEDS: QUEtiapine 50 MG TAB PO (20:08)
[2024-07-08] MEDS: traZODone 100 MG TAB 200 MG PO (20:08)
[2024-07-08 23:49] VITALS: BP 129/73; PULSE 77; RESP 18; TEMP 36; O2SAT 98
[2024-07-09 06:41] LABS: Abs Immature Grans 0.14 10^3/uL (0.0-0.06); Absolute Basophil Count 0.05 10^3/uL (0.0-0.2); Absolute Eosinophil Count 0.86 10^3/uL (0.0-0.7); Absolute Lymphocyte Count 1.85 10^3/uL (1.2-3.4); Absolute Neutrophil Count 3.28 10^3/uL (1.2-6.7); Basophils % 0.7 %; Eosinophils % 12.7 %; HCT 31.4 % (36.0-46.0); HGB 9.8 g/dL (11.2-15.7); Immature Grans % 2.1 %; Lymphocytes % 27.3 %; MCH 27.9 pg (27.0-33.0); MCHC 31.2 % (32.0-36.0); MCV 90 fL (80-95); MPV 10.4 fL (8.0-11.0); Monocytes % 8.8 %; Neutrophils % 48.4 %; Platelet Count 338 10^3/uL (130-400); RBC 3.51 10^6/uL (3.93-5.22); RDW 16.1 % (11.7-14.6); RDW-SD 52.1 fL; WBC 6.78 10^3/uL (4.4-10.8)
[2024-07-09 06:51] LABS: Anion Gap 5.3 mmol/L (3-11); BUN 15 mg/dL (7-18); CO2 30.7 mmol/L (21.0-32.0); CREATININE 0.7 mg/dL (0.55-1.02); Calcium 9.2 mg/dL (8.5-10.1); Chloride 107 mmol/L (98-107); Estimated GFR 85.76 (mL/min/1.73m2); Glucose 100 mg/dL (74-106); Magnesium 1.9 mg/dL (1.8-2.4); Sodium 143 mmol/L (136-145)
[2024-07-09] MEDS: Enoxaparin 40 MG/0.4 ML SYR SC (07:40)
[2024-07-09] MEDS: Sucralfate 1 GM TAB PO ×2 (07:40→11:50)
[2024-07-09] MEDS: Loratidine 10 MG TAB PO (07:40)
[2024-07-09] MEDS: Pregabalin 25 MG CAP 75 MG PO (07:41)
[2024-07-09] MEDS: Vitamin E 400 UNITS CAP PO (07:41)
[2024-07-09] MEDS: Multivitamin TAB 1 TAB PO (07:41)
[2024-07-09] MEDS: Magnesium Gluconate 500 MG TAB PO (07:41)
[2024-07-09] MEDS: Glucosamine 500 MG CAP PO (07:41)
[2024-07-09] MEDS: Midodrine 2.5 MG TAB 5 MG PO (07:41)
[2024-07-09] MEDS: DULoxetine 30 MG CAP 60 MG PO (07:42)
[2024-07-09] MEDS: Vitamins B Comp w/C TAB 1 TAB PO (07:42)
[2024-07-09] MEDS: Lactobacillus Acidophilus CAP 1 CAP PO (07:42)
[2024-07-09] MEDS: Ascorbic Acid 500 MG TAB 1000 MG PO (07:42)
[2024-07-09] MEDS: Potassium Chloride 20 MEQ TABCR PO (07:42)
[2024-07-09] MEDS: Pantoprazole 40 MG TABCR PO (07:42)
[2024-07-09] MEDS: Montelukast 10 MG TAB PO (07:43)
[2024-07-09] MEDS: Ferrous Sulfate 325 MG TAB PO (07:43)
[2024-07-09] MEDS: Normal Saline Flush 10 ML SYR IVP (07:43)
[2024-07-09] MEDS: Fluticasone NASAL SPRAY 16 GM BTL NS (08:00)
[2024-07-09 08:03] VITALS: BP 102/63; PULSE 81; RESP 20; TEMP 36.6; O2SAT 100
[2024-07-09] MEDS: Calcitonin-Salmon, Synthetic 3.7 ML BTL NS (08:04)
[2024-07-09] MEDS: Budesonide 0.5 MG/2 ML UPD VIAL IH (08:28)
[2024-07-09 08:30] VITALS: O2SAT 98
--- NOTE | 2024-07-09 10:00 | DI.RAD_ITS ---
Exam(s) RF MODIFIED SPEECH BA SWALLOW TECHNIQUE: Modified barium swallow was performed in conjunction with speech pathology. CONTRAST MATERIAL: Oral barium Oral water soluble contrast was administered. COMPARISON: No exams were available for comparison FINDINGS: Proximally was provided during modified barium swallow study performed in conjunction with speech the rapist. The radiologist was present in the fluoroscopy suite for this entire procedure. There did not appear to be evidence of obvious aspiration on this study IMPRESSION: As above. See separate report issued by the speech therapist. RADIATION DOSE DELIVERED: loy Sims=6.5 mGy
--- NOTE | 2024-07-09 10:41 | ST.MBS_ITS ---
Date of Service Date of service: 07/09/24 Time of Service: 10:41 Modified Barium Swallow Study Findings: Video fluoroscopic Swallowing Evaluation (VFSE) / Modified Barium Swallow Study (MBSS) Speech Language Pathology Report Patient referred for VFSE/MBSS from Dr. Espino given suspected aspiration pneumonia with repeat hospitalizations. HPI & Patient report of function: Patient is an 83 year old F with history of chronic hypoxic respiratory failure on 2L O2 at home, ILD (associated with chronic aspiration), known hiatal hernia, and 4 admissions for recurrent R sided pneumonia in the last 2 months.She is known to [facility] service who has evaluated her in the past at bedside. During previous admissions her swallow profile was judged to be primarily a reflux profile, without significant oral-pharyngeal component. However, given repeat R sided pnas a and repeat hospitalizations, MBSS was recommended to rule out oral- pharyngeal component at this time. IMPRESSIONS: No penetration/aspiration. Patient is with very good airway protection and oral- pharyngeal motility for her age. Noting CP hypertrophy with liquids and puree, though this did not appear to result in any significant pyriform sinus residue and did not impede transit through the UES for 13mm barium tablet. Do not suspect prandial aspiration to be a significant factor in pulmonary profile, reflux is a more likely component if aspiration is suspected. Remain on soft/bite size solids due to edentulousness at this time and thin liquids diet. No further [employer] services are indicated at this time. Reinforce reflux precautions with nursing and caregivers at discharge location. RECOMMENDATIONS: Diet recommendation: IDDSI Level 6-Soft & Bite-Sized Solids 0-Thin Liquids -Please see further details at [email or web address] -Diet texture modification is per patient's preference; please adjust diet textures at patient's discretion & collaboration with care team. Medication Administration: One at a time with thin liquids Risk Management: Behavioral reflux precautions, including upright position during + 90 mins after meals. Sleep with HOB at incline to reduce likelihood of night reflux/aspiration. Small/more frequent meals throughout day to reduce reflux. Small bites, approx [id number] Small sips, approx 10 mL Control risk factors for aspiration pneumonia via (a) thorough oral hygiene & (b) maintaining physical mobility as tolerated PLAN No further [employer] services are indicated at this time. Reinforce reflux precautions with nursing and caregivers at discharge location. ----- OBJECTIVE Videofluoroscopic Swallow Evaluation (VFSE/MBSS) was conducted in the lateral projection by Speech-Language Pathologist, in collaboration with Radiologist, to evaluate oropharyngeal swallow function. Anatomic view under fluoroscopy: WFL PO Barium Contrast Trials Oral barium water-soluble contrast was administered as follows: IDDSI Level 0 Varibar thin liquid (40% w/v) IDDSI Level 4 Varibar pudding/pureed/extremely thick (40% w/v) IDDSI Level 7 Regular Solid (Easy to chew): 1/2 fig ledezma coated in 3 mL Varibar pudding 13 mm barium tablet taken with Thin Liquids (water, no contrast). MBSImP Component Scores: COMPONENT Scale SCORE 1 Lip closure (0-4) 0 Resulted in no labial escape 2 Hold Position (0-3) 0 Maintained a cohesive bolus between tongue to palatal seal 3 Bolus Preparation (0-4) 1 Resulted in slow prolonged chewing/mashing with complete re-collection 4 Bolus Transport (0-4) 2 Was with slowed tongue motion 5 Oral Residue (0-4) 2 Was a collection on oral structures 6 Swallow Initiation (0-4) 3 Occurred when the bolus head was in the pyriform sinuses 7 Soft Palate Elevation (0-4) 0 Resulted in no bolus between soft palate and t he pharyngeal wall 8 Laryngeal Elevation (0-3) 0 Demonstrated complete superior movement of thyro id cartilage with complete approximation of arytenoids to epiglottic petiole 9 Anterior Hyoid Motion (0-2) 0 Demonstrated complete anterior movement 10 Epiglottic Movement (0-2) 0 Resulted in complete inversion 11 Laryngeal Closure (0-2) 0 Was complete with no air or contrast in laryngeal vestibule 12 Pharyngeal Stripping Wave (0-2) 0 Was present and complete 13 Pharyngeal Contraction (0-3) NA 14 PES Opening (0-3) 1 Demonstrated partial distension/partial duration, with partial obstruction of flow 15 Tongue Base Retraction (0-4) 1 Allowed a trace column of contrast or air between tongue base and pharyngeal wall 16 Pharyngeal Residue (0-4) 1 Showed a trace within or on pharyngeal structure s 17 Esophageal Clearance (0-4) NA Results: COMPONENT Scale SCORE 1 Oral Score (0-18) 8 2 Pharyngeal Score (0-29) 1 3 Esophageal Score (0-4) 0 Penetration-Aspiration Scale: COMPONENT Scale SCORE 1 Thin liquid (1-8) 1 Contrast did not enter the airway 2 [place] thick (1-8) NA 3 Honey thick (1-8) NA 4 Pudding thick (1-8) 1 Contrast did not enter the airway 5 Cookie (1-8) 1 Contrast did not enter the airway Observations not captured in quantitative data: Trialed Compensatory Strategies & Outcome: Maneuvers Successful (+) Unsuccessful (-) Postures Successful (+) Unsuccessful (-) 3 second Preparatory Set? ?+/- Chin Tuck Posture? ? Cough? ? Posterior Head tilt?? +/-? Reflexive? Cued? Throat Clear? ? Head Tilt to? Reflexive? Left? Cued? Right? ? Saliva swallow? ?+ Head Turn/Rotate to? ? Supraglottic Swallow? Left? ? Super-supraglottic Swallow? Right? ? Bolus Modifications Successful (+) Unsuccessful (-) Delivery/Alternating Consistencies ? Follow with Liquid Wash ? Follow with Solid Bolus? Delivery/Via Straw? ? Reduced Volume? ?+/- Reduced Rate of Intake? ?+/- Increased Viscosity? ? Other:?? ? Thank you for allowing us to take part in this patient's care. Please feel free to contact the [facility] Speech Language Pathology Department with any questions/concerns.
[2024-07-09] MEDS: Barium Sulfate 700 MG TAB PO (10:49)
[2024-07-09] MEDS: Barium Sulfate 81% w/w for Oral Suspension 148 GM BTL PO (10:50)
[2024-07-09] MEDS: Barium Sulfate Oral Paste 40% W/V 230 ML TUBE PO (10:51)
[2024-07-09] MEDS: Barium Sulfate 40% W/V 240 ML BTL PO (10:52)
--- NOTE | 2024-07-09 11:30 | W.PM.DS.N ---
Date of service: 07/09/24 Time of Service: 11:30 DS: Diagnosis Discharge Diagnosis (1) Gastroesophageal reflux disease: Status: Chronic (2) Acute and chronic respiratory failure with hypoxia: Status: Acute (3) Displaced intertrochanteric fracture of left femur, subsequent encounter for closed fracture with malunion: Status: Acute (4) Aspiration into airway: Status: Acute (5) Recurrent pneumonia: Status: Acute Discharge Plan Disposition Patient Disposition: [facility] Facility(SNF) Condition: Improving Discharge Details Reason For Visit: aspiration pneumonitis, acute on chronic respirato Admit Date/Time: 07/03/24 21:45 Admit Provider: Audie Richmond Attending Provider: Audie Richmond Primary Care Provider: Iesha Leary [facility] Course Hospital Course: This 82-year-old female patient living at the [facility] with a past medical history of chronic left respiratory failure on 2 L of oxygen at home, 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 The patient presented to the ED with a temperature of 100.1, with increased respiratory distress and cough. Workup in the ED showed no leukocytosis, mild anemia with an H&H of 10 and 33, and a negative respiratory viral panel. Chest x-ray showed increased opacity over the right hemithorax with focally increased opacity over the right lower lung zone suspicious for pulmonary consolidation, minimal bilateral pleural effusions and chronic interstitial changes. The patient was admitted to the medical surgical floor for evaluation and management of aspiration pneumonia versus pneumonitis. In the ED the patient was treated with IV ceftriaxone and a home dose of midodrine was administer for systolic blood pressure of 97mmHg. During the stay, the patient was treated with IV cefepime. Initially on 3 L of oxygen via nasal cannula, patient went back to baseline oxygen requirement. Chronic pain meds were adjusted due to risk of aspiration as well as initially altered mentation on EMS arrival. The patient did not require any as needed doses during the stay. Speech pathology consult was completed with recommendation for modified barium swallow showing very strong oral pharyngeal swallow with significant circopharyngeal Bar, indicative of significant chronic GERD. If aspiration is a component suspect it is primarily due to reflux. Recommendation issued for primary care practitioner to pursue outpatient surgical consultation for EGD in the setting of reflux and aspiration. The patient will be discharged to the [facility] on recommendations from this speech pathology therapy: Diet recommendation: IDDSI Level 6-Soft & Bite-Sized Solids 0-Thin Liquids -Please see further details at [email or web address] -Diet texture modification is per patient's preference; please adjust diet textures at patient's discretion & collaboration with care team. Medication Administration: One at a time with thin liquids Risk Management: Behavioral reflux precautions, including upright position during + 90 mins after meals. Sleep with HOB at incline to reduce likelihood of night reflux/aspiration. Small/more frequent meals throughout day to reduce reflux. Small bites, approx [id number] Small sips, approx 10 mL Control risk factors for aspiration pneumonia via (a) thorough oral hygiene & (b) maintaining physical mobility as tolerated Chronic conditions were treated as per home medicine regimen. Patient was seen by palliative care with plans to follow-up as an outpatient regarding the issues of transitioning to comfort care if appropriate. Discussed with Dr. Espino Charlotte Meds and New Rx's Prescriptions: Continued Balanced B-100 Complex 100 mg tablet extended release 1 tab PO DAILY vitamin A 2,400 mcg capsule 2,400 mcg PO DAILY PRN ginkgo biloba 40 mg tablet 240 mg PO DAILY PRN Rx Instructions: give with meal/snack magnesium 250 mg tablet 500 mg PO BID zinc acetate 25 mg (zinc) capsule 100 mg PO BID vitamin E (dl, acetate) 45 mg (100 unit) capsule 180 mg PO DAILY loratadine [Allergy Relief (loratadine)] 10 mg tablet 10 mg PO DAILY polyethylene glycol 3350 17 gram/dose powder 17 g PO DAILY Neuriva Original 100-100 mg capsule 1 cap PO DAILY PRN calcium carbonate [Tums Ultra] 400 mg calcium (1,000 mg) tablet,chewable 2,000 mg PO DAILY PRN Rx Instructions: take 2 tablets (2000mg) by mouth daily *patient will supply sucralfate 1 gram tablet 1 g PO TID bisacodyl 10 mg suppository 10 mg MO DAILY PRN multivitamin Tablet 1 tab PO DAILY benzonatate 100 mg capsule 100 mg PO BID montelukast 10 mg tablet 10 mg PO DAILY Qty: 90 4RF ferrous sulfate 325 MG tablet 325 mg PO TID cholecalciferol (vitamin D3) [Vitamin D3] 400 UNIT tablet 50 mcg PO DAILY glucosamine sulfate 2KCl 1,000 MG tablet 500 mg PO BID ascorbic acid (vitamin C) 1,000 mg tablet 1 g PO BID duloxetine [Cymbalta] 60 mg capsule,delayed release(DR/EC) 60 mg PO BID quetiapine 50 mg tablet 50 mg PO QPM Patient Comments: TAKE ONE TABLET BY MOUTH EVERY EVENING trazodone 100 mg tablet 200 mg PO HS Patient Comments: TAKE 2 TABLETS BY MOUTH EVERY NIGHT ipratropium-albuterol 0.5 mg-3 mg(2.5 mg base)/3 mL solution for nebulization 3 ml INHALATION TID potassium chloride 20 MEQ tablet,ER particles/crystals 20 meq PO TID Rx Instructions: 20 MG PO TID DIRECTED fluticasone propionate 50 mcg/actuation spray,suspension 1 spray INTRANASAL BID Patient Comments: SPRAY ONE SPRAY IN EACH NOSTRIL TWICE A DAY Rx Instructions: ONE SPRAY EACH NOSTRIL BID calcitonin (salmon) 200 unit/actuation [place],Non-Aerosol 1 spray NS DAILY Rx Instructions: 1 spray in left nostril daily- alternate nostrils every other day albuterol sulfate [Ventolin HFA] 90 mcg/actuation Hfa Aerosol Inhaler 2 puff inhalation TID midodrine 5 mg tablet 5 mg PO TID pregabalin 75 mg capsule 75 mg PO TID hydromorphone 2 mg tablet 2 mg PO HS MDD 1 Rx Instructions: Hold if patient refuses or staff feels she is somulent L.acidoph,saliva-B.bif-S.therm [Acidophilus Probiotic Blend] 175 mg capsule 1 cap PO DAILY cyclosporine 0.05 % Dropperette 1 drp OU BID pantoprazole 40 mg tablet,delayed release (DR/EC) 40 mg PO QAM budesonide 0.5 mg/2 mL suspension for nebulization 0.5 mg inhalation DAILY naloxone 4 mg/actuation spray,non-aerosol 4 mg intranasal Q2-3M PRN Rx Instructions: spray 1 dose into ONE nostril; alternate nostrils w each dose until help arrives Changed morphine 30 mg tablet extended release 30 mg PO Q12H PRN MDD 45 PRNQty: 0 0RF morphine concentrate 20 mg/mL syringe 10 mg sublingual DAILY PRN PRNQty: 0 0RF Discontinued cefpodoxime 200 mg tablet 200 mg PO BID Discharge Instructions Referrals: GENERAL SURG,[facility] [OTHER] - (Referral to general surgery for possible EGD in the setting of GERD and diaphragmatic hernia, chronic aspiration with multiple admissions) Activity:: Activity as Tolerated Equipment/Supplies:: W/C Diet:: As Tolerated Discharge Orders Discharge Orders: Discharge Order (Routine); Ordered 07/09/24 Ordered By: Fior Graves DS: Summary Time Spent with Patient providing and/or coordinating discharge services: Greater than 30 minutes Status at Discharge Functional status at discharge: wheelchair bound Overall status at discharge: patient is not back to baseline Mental Status: mental status grossly normal Speech and Movement: speech and movement normal Mood: congruent mood Affect: normal affect Quality:SDOH Health Related Social Needs: Health related social needs details no problems noted. Health related social needs details: no problems noted. Referrals and interventions: plans to return to the [facility] Exam Narrative Exam Narrative: Constitutional The patient resting in bed without acute distress HENMT: Facial structures with normal appearance Neuro:alert and oriented to self, person, place and situation. No focal deficits observed Resp: On baseline O2 supplementation, full word-sentences, clear lungs bilaterally, diminished posterior bases Cardio: regular rhythm, S1, S2, no murmur, capillary refill<3 sec., positive pulses to all 4 ext GI: Abdomen is not distended, soft non-tender, bowel sounds are present Integumentary: no opened wound/ rash on exposed skin Extremities: unable to bear weight on LLE d/t past trauma Psych: RASS 0, congruent mood and normal affect. Psych Mental Status: mental status grossly normal Speech and Movement: speech and movement normal Mood: congruent mood Affect: normal affect DS: Data Vitals/I&O Vitals and I&O: Vital Signs Temperature 36.6 C 07/09/24 08:03 Temperature Source Temporal Artery Scan 07/09/24 08:03 Pulse 81 07/09/24 08:03 Pulse 83 07/05/24 21:50 Respiratory Rate 20 07/09/24 08:03 Respiratory Effort Short of Breath 07/04/24 01:01 Respiratory Depth Shallow 07/04/24 01:01 Respiratory Pattern Tachypnea 07/04/24 01:01 Blood Pressure 102/63 07/09/24 08:03 Blood Pressure Mean 86 07/04/24 10:01 Blood Pressure Position Supine 07/04/24 01:01 Pulse Oximetry 98 07/09/24 08:30 Oxygen Delivery Method Nasal Cannula 07/09/24 08:30 Oxygen Flow Rate 1 07/09/24 08:30 Pain Level 0 07/09/24 08:03 Comment MAP 69 07/05/24 03:10 Intake & Output 07/08/24 07/08/24 07/09/24 11:59 23:59 11:59 Intake Total 100 / 1200 1100 / 1200 Balance 100 / 1200 1100 / 1200 Intake: IV 100 / 200 100 / 200 Oral 1000 / 1000 Other: Urine Color Yellow Pale Urine Appearance Clear Urine Odor Strong None Comment incontinent of large amount of urine incontinent in brief mixed with stool. Stool Size Copious Stool Characteristics Soft Liquid Brown Data Completed and Pending Labs on day of discharge: Labs from last 24 hours 07/09/24 06:30 WBC 6.78 RBC 3.51 L Hgb 9.8 L Hct 31.4 L MCV 90 MCH 27.9 MCHC 31.2 L RDW 16.1 H Plt Count 338 MPV 10.4 Immature Gran % 2.1 Neutrophils % 48.4 Lymphocytes % 27.3 Monocytes % 8.8 Eosinophils % 12.7 Basophils % 0.7 Nucleated RBC % 0.0 Absolute Neutrophils 3.28 Absolute Lymphocytes 1.85 Absolute Monocytes 0.60 Absolute Eosinophils 0.86 H Absolute Basophils 0.05 Sodium 143 Potassium 4.0 Chloride 107 Carbon Dioxide 30.7 Anion Gap 5.3 BUN 15 Creatinine 0.7 Est GFR (CKD-EPI 2020) 85.76 Glucose 100 Calcium 9.2 Magnesium 1.9 PFSH All Active Problems (Updated 07/06/24 @ 17:24 by Elyssa Falcon NP) Gastroesophageal reflux disease (Chronic) Discharge planning issues (Acute) DVT prophylaxis (Acute) Acute and chronic respiratory failure with hypoxia (Acute) Aspiration into airway (Acute) ACP (advance care planning) (Acute) Recurrent pneumonia (Acute) Displaced intertrochanteric fracture of left femur, subsequent encounter for closed fracture with malunion (Acute) Medical History Chronic pain Pneumonia Sepsis associated hypotension Nail dystrophy Non-sustained ventricular tachycardia Respiratory failure Pneumonia Chronic hypoxic respiratory failure Pain due to internal orthopedic prosthetic device Lung disease Left hip pain Seasonal allergies Hypotension Intertrochanteric fracture of left femur S/P IM FIXATION 01/01/24 Acute UTI Skin ulcer DNR (do not resuscitate) 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 No heat for 1-1/2 days Dehydration, mild (09/22/14) Irritable bowel syndrome Hiatal hernia Gastroesophageal reflux disease Insomnia DJD (degenerative joint disease) Fibromyalgia Hyperlipidemia Allergic rhinitis Morbid obesity Fall (09/22/14) a. fell down and could not get up Frequent falls Alcohol withdrawal NSIP (nonspecific interstitial pneumonia) Fracture of right inferior pubic ramus Fracture of right superior pubic ramus Laceration of skin of right forearm Skin ulcer of lower leg Laceration of arm, right, complicated Fractured pelvis T12 compression fracture Acute exacerbation of chronic low back pain Fall Hiatal hernia IBS (irritable bowel syndrome) Hypertension Allergic rhinitis GERD (gastroesophageal reflux disease) DJD (degenerative joint disease) Hyperlipidemia Hypercholesterolemia Fibromyalgia Depression Anemia Alcohol abuse Insomnia Person living alone (09/22/14) Surgical History History of surgery a. S/P open right ankle fracture/dislocation. b. Left knee arthroscopy. c. Right wrist fracture repair. d. T/A as a child. Tonsillectomy and adenoidectomy Repair fracture right wrist ORIF right ankle Colonoscopy - MAC (11/18/16) Arthroplasty of knee left Family History Mother Dementia Maternal Aunt Diabetes Social History Smoking/Tobacco Use Status: Former Tobacco Use Smoking risk assessment performed?: Yes Alcohol Intake: current Alcohol Intake frequency: 0-2 drinks per day Alcohol type: wine Counseling given: Yes Details: 1-2 bottle of wine/day Drug use: Current Sobriety Substance use type: does not use and marijuana Details: two tokes for sleep Housing: custodial Do you feel safe at home: Yes Do you feel safe in your relationship?: Yes Additional Social history: LIVES AT [facility] Time Spent with Patient Time Spent with Patient: 70-84 minutes4 Time was spent: preparing to see the patient(eg.review tests), obtaining and/or reviewing separately otained hiistory, ordering medications,tests, procedures, referring, communicating with other health continuum of care manager, indepentently interpreting results, counseling the patient and care coordination
--- NOTE | 2024-07-09 11:52 | CMDISCH_ITS ---
Date of service: 07/09/24 Time of Service: 11:53 LACE Index Scoring Tool Questions: Length of Stay (in days): 4 - 6 Was the patient admitted via the E.D.?: Yes Comorbidities: Chronic Pulmonary Disease E.D. Visits: 5 Answers: Total Score: 13 Risk of Readmission: High Risk Care Management Discharge Plan Reason for Hospitalization: Aspiration pneumonia Discharge Plan: Elvi will return to the [facility] for continued rehabilitation prior to transitioning back to residential care. She will follow up with facility providers and plan of care and transport via EMS. Patient/Family Education Needs: Review of discharge instructions, limitations, follow up plan, and discuss Ask Me Three Services Needed at Discharge: Long Term Facility SDOH Health Related Social Needs: Health related social needs details no problems noted. Health related social needs details: no problems noted. Referrals and interventions: [facility]
--- NOTE | 2024-07-09 14:14 | W.PC.ACHO ---
Registration Status: Primary Language: Preferred Language: ED Information & Data Chief Complaint GenMedical 07/03/24 20:02 Triage Note Pt BIBEMS per report 07/03/24 19:50 obtunded at [facility] w/ poor resp effort and minimally responsive to stim . Upon arrival pt CAOx3, drowsy but easily arousable. EMS states she had an elevated temp on scene, but was responsive w/ mildly elevated HR on scene 90- 100bpm. BP WDL. Recent dx of atypical PNA and UTI for which she has completed abx for. Coarse cough. Medical / Surgical History (Last Reviewed 07/03/24 @ 23:28 by Audie Richmond) Depression Onychomycosis Ataxia Rhabdomyolysis (09/22/14) Alcohol withdrawal delirium (09/22/14) Anemia H/O fall Housing or economic circumstance (09/22/14) Dehydration, mild (09/22/14) Irritable bowel syndrome Hiatal hernia DJD (degenerative joint disease) Fibromyalgia Hyperlipidemia Allergic rhinitis Fall (09/22/14) Morbid obesity Colitis determined by colorectal biopsy (11/18/16) Arthritis of right ankle Osteoarthritis of left knee Compression fx, thoracic spine Chronic pain disorder Menopausal disorder E. coli UTI DNR (do not resuscitate) Seasonal allergies Community acquired pneumonia Skin ulcer Acute UTI Interstitial lung disease Left hip pain Lung disease Pain due to internal orthopedic prosthetic device Chronic hypoxic respiratory failure Respiratory failure Nail dystrophy Sepsis associated hypotension Pneumonia Chronic pain Pneumonia Non-sustained ventricular tachycardia Hypotension Intertrochanteric fracture of left femur Insomnia Frequent falls Alcohol withdrawal NSIP (nonspecific interstitial pneumonia) Fracture of right inferior pubic ramus Fracture of right superior pubic ramus Laceration of skin of right forearm Skin ulcer of lower leg Laceration of arm, right, complicated Fractured pelvis T12 compression fracture Acute exacerbation of chronic low back pain Fall Person living alone (09/22/14) Hiatal hernia IBS (irritable bowel syndrome) Hypertension Allergic rhinitis GERD (gastroesophageal reflux disease) DJD (degenerative joint disease) Hyperlipidemia Hypercholesterolemia Fibromyalgia Depression Anemia Alcohol abuse Insomnia (Last Reviewed 07/03/24 @ 23:28 by Audie Richmond) History of surgery Tonsillectomy and adenoidectomy Repair fracture right wrist ORIF right ankle Colonoscopy - MAC (11/18/16) Arthroplasty of knee Most Recent Vital Signs Temperature 36.6 C 07/09/24 08:03 Temperature Source Temporal Artery Scan 07/09/24 08:03 Pulse 81 07/09/24 08:03 Pulse 83 07/05/24 21:50 Respiratory Rate 20 07/09/24 08:03 Respiratory Effort Short of Breath 07/04/24 01:01 Respiratory Depth Shallow 07/04/24 01:01 Respiratory Pattern Tachypnea 07/04/24 01:01 Blood Pressure 102/63 07/09/24 08:03 Blood Pressure Mean 86 07/04/24 10:01 Blood Pressure Position Supine 07/04/24 01:01 Pulse Oximetry 98 07/09/24 08:30 Oxygen Delivery Method Nasal Cannula 07/09/24 08:30 Oxygen Flow Rate 1 07/09/24 08:30 Pain Level 0 07/09/24 08:03 Comment MAP 69 07/05/24 03:10 Allergies fentanyl Adverse Reaction (Verified 07/03/24 20:18) Nausea Precautions Isolation Standard precaution 07/03/24 20:00 IV IV Catheter Type [Right Saline Lock Antecubital] IV Catheter Gauge [Right 20 Antecubital] Diagnostics 07/09/24 Range/Units 06:30 WBC 6.78 (4.4-10.8) 10^3/uL RBC 3.51 L (3.93-5.22) 10^6/uL Hgb 9.8 L (11.2-15.7) g/dL Hct 31.4 L (36.0-46.0) % MCV 90 (80-95) fL MCH 27.9 (27.0-33.0) pg MCHC 31.2 L (32.0-36.0) % RDW 16.1 H (11.7-14.6) % Plt Count 338 (130-400) 10^3/uL MPV 10.4 (8.0-11.0) fL Immature Gran % 2.1 % Neutrophils % 48.4 % Lymphocytes % 27.3 % Monocytes % 8.8 % Eosinophils % 12.7 % Basophils % 0.7 % Nucleated RBC % 0.0 (0.0-0.3) % Absolute Neutrophils 3.28 (1.2-6.7) 10^3/uL Absolute Lymphocytes 1.85 (1.2-3.4) 10^3/uL Absolute Monocytes 0.60 (0.1-0.8) 10^3/uL Absolute Eosinophils 0.86 H (0.0-0.7) 10^3/uL Absolute Basophils 0.05 (0.0-0.2) 10^3/uL Sodium 143 (136-145) mmol/L Potassium 4.0 (3.5-5.1) mmol/L Chloride 107 (98-107) mmol/L Carbon Dioxide 30.7 (21.0-32.0) mmol/L Anion Gap 5.3 (3-11) mmol/L BUN 15 (7-18) mg/dL Creatinine 0.7 (0.55-1.02) mg/dL Est GFR (CKD-EPI 2020) 85.76 (mL/min/1.73m2) Glucose 100 (74-106) mg/dL Calcium 9.2 (8.5-10.1) mg/dL Magnesium 1.9 (1.8-2.4) mg/dL 07/03/24 20:10 Blood Culture - Final Blood NO GROWTH 120 HOURS Intake and Output - 24 Hour Total 07/03/24 19:07 thru 07/09/24 05:49 Intake Total 5965 Balance 5965 Weight 84 kg Intake: IV 1230 Oral 4735 Other: Urine Color Pale Urine Appearance Clear Urine Odor None Comment incontinent in brief mixed with stool. Stool Size Copious Stool Characteristics Soft Liquid Brown # Voids 1 Falls Risk Assessment History of Falls Previous History 07/04/24 01:01 Contributing Factors Confusion,Unstable, 07/04/24 01:01 Incontinence,Medications Ambulatory Aids Uses ambulatory device + 07/04/24 01:01 Tubes/Lines With any additional score 07/04/24 01:01 Gait Evaluation W/any additional score 07/04/24 01:01 Cognition Cognitive impairment 07/04/24 01:01 Fall Total Score 112 07/04/24 01:01 Level of Risk Maximum Risk 07/04/24 01:01 Problems (Last Reviewed 07/03/24 @ 23:28 by Audie Richmond) Gastroesophageal reflux disease (Chronic) Discharge planning issues (Acute) DVT prophylaxis (Acute) Acute and chronic respiratory failure with hypoxia (Acute) Aspiration into airway (Acute) ACP (advance care planning) (Acute) Recurrent pneumonia (Acute) Displaced intertrochanteric fracture of left femur, subsequent encounter for closed fracture with malunion (Acute) Notes 07/04/24 22:17 Nursing Notes by Samy Bojorquez Nursing Note: 2030 Patient sister, Marzena Moran, called to inquire about the patient. I informed her that I had just given her sister her PM medications and that she was resting in bed. I spoke with her further that she her lungs had some wheezing currently but that her sister was resting in bed with no pain. She asked about the possibility of transferring her sister to a facility closer to where she lives in [place]. I informed her that I am not familiar with the intricacies of the insurance differences and transferring state to state. I suggested that she speak with care management in that regard during the day. She then asked about her code status and I reviewed the palliative care notes to find that she recently signed a COLST form as DRN/DNI, the sister said that when she was with her that she had decided to try to fight on and had rescinded her DNR/DNI previously. I assured her that we all want to give care that the patient wishes and that it is her choice in what measures she wishes. She agrees with that sentiment. I told the sister that I would reach out with any major changes overnight. She provided her phone numbers of [phone] for a home number and a cell number of [phone]. Initialized on 07/04/24 22:17 - END OF NOTE v v v v v v v v v Sending and/or Receiving Nurses: Please use comment section below to note any information pertinent to the patient hand-off not included above. Information / Comments: Report received from: report given to Mac at [facility] from Azucena IRAHETA at [id number]
== END 2024-07-09 13:45 | disposition skilled nursing facility (03) | DRG 177 ==
LOC: ER 21:12 → ICU 07-04 00:11 → MS 07-04 11:49
PROVIDERS: Hospitalist; Nurse Practitioner Acute Care; Admitting Provider Family Medicine; Emergency Provider Emergency Medicine; PCP Family Medicine; Visit Provider Family Medicine
DX: J69.0 Pneumonitis due to inhalation of food and vomit; J96.21 Acute and chronic respiratory failure with hypoxia; E87.1 Hypo-osmolality and hyponatremia; T84.84XA Pain due to internal orthopedic prosthetic devices, implants and grafts, initial encounter; S72.142P Displaced intertrochanteric fracture of left femur, subsequent encounter for closed fracture with malunion; J84.10 Pulmonary fibrosis, unspecified; T17.908A Unspecified foreign body in respiratory tract, part unspecified causing other injury, initial encounter; K21.9 Gastro-esophageal reflux disease without esophagitis; I95.89 Other hypotension; Z99.81 Dependence on supplemental oxygen; L60.3 Nail dystrophy; M25.552 Pain in left hip; Z66 Do not resuscitate; K52.832 Lymphocytic colitis; D64.9 Anemia, unspecified; K44.9 Diaphragmatic hernia without obstruction or gangrene; G47.00 Insomnia, unspecified; F32.A Depression, unspecified; R27.0 Ataxia, unspecified; Z96.652 Presence of left artificial knee joint; M79.7 Fibromyalgia; E78.00 Pure hypercholesterolemia, unspecified; G31.84 Mild cognitive impairment of uncertain or unknown etiology; X58.XXXD Exposure to other specified factors, subsequent encounter
CPT/HCPCS: 00123; 36415; 80048; 80053; 84145; 85027; 87040; 87077; 87637; 87641; 92526; 92610; 94640; 96365; 96375; 99285; J1650; 71045; 74221; 83605; 83735; 85025; 87186; 94668; 94760; 99223; 99232; 99233; 99239; J0692; J0696; J2919; J3490; J7620; J7626

== ENCOUNTER → 2024-08-12 14:00 | Outpatient (BNVA) | payer MEDICARE, MEDICAID, SELFPAY | PROVIDERS: PCP Family Medicine; Referring Provider Family Medicine; Visit Provider Physician Assistant Surgical | DX: K21.9 Gastro-esophageal reflux disease without esophagitis (principal); J84.9 Interstitial pulmonary disease, unspecified; J96.11 Chronic respiratory failure with hypoxia; K44.9 Diaphragmatic hernia without obstruction or gangrene | CPT/HCPCS: 99214 ==

== ENCOUNTER 2024-08-19 20:30 | Outpatient (REF) | payer MEDICARE, MEDICAID, SELFPAY ==
[2024-08-19 21:44] LABS: Abs Immature Grans 0.02 10^3/uL (0.0-0.06); Absolute Basophil Count 0.02 10^3/uL (0.0-0.2); Absolute Eosinophil Count 0.01 10^3/uL (0.0-0.7); Absolute Lymphocyte Count 0.65 10^3/uL (1.2-3.4); Absolute Monocyte Count 0.15 10^3/uL (0.1-0.8); Basophils % 0.4 %; Eosinophils % 0.2 %; HCT 34.9 % (36.0-46.0); HGB 10.7 g/dL (11.2-15.7); Immature Grans % 0.4 %; Lymphocytes % 11.5 %; MCH 28.4 pg (27.0-33.0); MCHC 30.7 % (32.0-36.0); MCV 93 fL (80-95); MPV 12.1 fL (8.0-11.0); Monocytes % 2.7 %; Neutrophils % 84.8 %; Platelet Count 255 10^3/uL (130-400); RBC 3.77 10^6/uL (3.93-5.22); RDW 16.5 % (11.7-14.6); RDW-SD 55.7 fL; WBC 5.65 10^3/uL (4.4-10.8)
[2024-08-19 22:11] LABS: ALT 21 U/L (14-59); AST 18 U/L (15-37); Albumin 3.3 g/dL (3.4-5.0); Alkaline Phosphatase 110 U/L (46-116); Anion Gap 4.3 mmol/L (3-11); BUN 15 mg/dL (7-18); Bilirubin, Total 0.26 mg/dL (0.2-1.0); CO2 32.7 mmol/L (21.0-32.0); CREATININE 0.9 mg/dL (0.55-1.02); Calcium 8.7 mg/dL (8.5-10.1); Chloride 106 mmol/L (98-107); Estimated GFR 63.43 (mL/min/1.73m2); Glucose 165 mg/dL (74-106); NT-proBNP 528 pg/mL (<300); Potassium 4.7 mmol/L (3.5-5.1); Sodium 143 mmol/L (136-145); Total Protein 6.6 g/dL (6.4-8.2)
== END 2024-08-19 20:31 | disposition home or self-care (01) ==
LOC: LBN 20:30
PROVIDERS: PCP Family Medicine; Visit Provider Family Medicine
DX: J96.21 Acute and chronic respiratory failure with hypoxia (principal); J18.9 Pneumonia, unspecified organism; E83.42 Hypomagnesemia; E87.6 Hypokalemia; D50.8 Other iron deficiency anemias
CPT/HCPCS: 80053; 83880; 85025

== ENCOUNTER 2024-09-09 19:03 | Outpatient (REF) | payer MEDICARE, MEDICAID, SELFPAY ==
[2024-09-09 18:38] LABS: Abs Immature Grans 0.03 10^3/uL (0.0-0.06); Absolute Basophil Count 0.01 10^3/uL (0.0-0.2); Absolute Eosinophil Count 0.01 10^3/uL (0.0-0.7); Absolute Lymphocyte Count 0.34 10^3/uL (1.2-3.4); Absolute Monocyte Count 0.06 10^3/uL (0.1-0.8); Absolute Neutrophil Count 4.01 10^3/uL (1.2-6.7); Basophils % 0.2 %; Eosinophils % 0.2 %; HCT 37.9 % (36.0-46.0); HGB 11.2 g/dL (11.2-15.7); Immature Grans % 0.7 %; Lymphocytes % 7.6 %; MCH 28.6 pg (27.0-33.0); MCHC 29.6 % (32.0-36.0); MCV 97 fL (80-95); MPV 11.6 fL (8.0-11.0); Monocytes % 1.3 %; Platelet Count 240 10^3/uL (130-400); RBC 3.92 10^6/uL (3.93-5.22); RDW 14.9 % (11.7-14.6); RDW-SD 52.8 fL; WBC 4.46 10^3/uL (4.4-10.8)
[2024-09-09 18:56] LABS: ALT 26 U/L (14-59); AST 20 U/L (15-37); Albumin 3.1 g/dL (3.4-5.0); Alkaline Phosphatase 131 U/L (46-116); Anion Gap 0.5 mmol/L (3-11); BUN 14 mg/dL (7-18); Bilirubin, Total 0.21 mg/dL (0.2-1.0); CO2 38.5 mmol/L (21.0-32.0); CREATININE 0.8 mg/dL (0.55-1.02); Calcium 8.9 mg/dL (8.5-10.1); Chloride 106 mmol/L (98-107); Estimated GFR 73.06 (mL/min/1.73m2); Glucose 173 mg/dL (74-106); NT-proBNP 213 pg/mL (<300); Potassium 4.6 mmol/L (3.5-5.1); Sodium 145 mmol/L (136-145); Total Protein 6.6 g/dL (6.4-8.2)
== END 2024-09-09 19:04 | disposition home or self-care (01) ==
LOC: LBN 19:03
PROVIDERS: PCP Family Medicine; Visit Provider Nurse Practitioner Gerontology
DX: J96.21 Acute and chronic respiratory failure with hypoxia (principal)
CPT/HCPCS: 80053; 83880; 85025

== ENCOUNTER 2024-09-30 17:59 | Outpatient (REF) | payer MEDICARE, MEDICAID, SELFPAY ==
[2024-09-30 18:14] LABS: Abs Immature Grans 0.05 10^3/uL (0.0-0.06); Absolute Basophil Count 0.02 10^3/uL (0.0-0.2); Absolute Monocyte Count 0.85 10^3/uL (0.1-0.8); Basophils % 0.2 %; Eosinophils % 0.3 %; HCT 36.3 % (36.0-46.0); HGB 11.2 g/dL (11.2-15.7); Immature Grans % 0.4 %; Lymphocytes % 4.9 %; MCHC 30.9 % (32.0-36.0); MCV 94 fL (80-95); MPV 11.6 fL (8.0-11.0); Monocytes % 7.1 %; Neutrophils % 87.1 %; Platelet Count 184 10^3/uL (130-400); RBC 3.86 10^6/uL (3.93-5.22); RDW-SD 51.8 fL; WBC 11.94 10^3/uL (4.4-10.8)
[2024-09-30 18:35] LABS: ALT 25 U/L (14-59); AST 17 U/L (15-37); Albumin 3.1 g/dL (3.4-5.0); Alkaline Phosphatase 113 U/L (46-116); Anion Gap 0 mmol/L (3-11); BUN 22 mg/dL (7-18); Bilirubin, Total 0.28 mg/dL (0.2-1.0); CREATININE 0.9 mg/dL (0.55-1.02); Calcium 8.7 mg/dL (8.5-10.1); Chloride 104 mmol/L (98-107); Estimated GFR 63.43 (mL/min/1.73m2); Glucose 139 mg/dL (74-106); Magnesium 1.8 mg/dL (1.8-2.4); NT-proBNP 718 pg/mL (<300); Potassium 4.8 mmol/L (3.5-5.1); Sodium 141 mmol/L (136-145); Total Protein 6.2 g/dL (6.4-8.2)
[2024-09-30 18:36] LABS: Absolute Eosinophil Count 0.04 10^3/uL (0.0-0.7); Absolute Lymphocyte Count 0.59 10^3/uL (1.2-3.4)
== END 2024-09-30 18:00 | disposition home or self-care (01) ==
LOC: LBN 17:59
PROVIDERS: PCP Family Medicine; Visit Provider Nurse Practitioner Gerontology
DX: I50.9 Heart failure, unspecified (principal); E83.42 Hypomagnesemia; D50.8 Other iron deficiency anemias; E87.6 Hypokalemia
CPT/HCPCS: 80053; 83735; 83880; 85025

== ENCOUNTER 2024-10-03 18:28 | Outpatient (REF) | payer MEDICARE, MEDICAID, SELFPAY ==
[2024-10-03 17:13] LABS: Abs Immature Grans 0.03 10^3/uL (0.0-0.06); Absolute Basophil Count 0.03 10^3/uL (0.0-0.2); Absolute Eosinophil Count 0.06 10^3/uL (0.0-0.7); Absolute Lymphocyte Count 0.85 10^3/uL (1.2-3.4); Absolute Monocyte Count 0.37 10^3/uL (0.1-0.8); Absolute Neutrophil Count 4.91 10^3/uL (1.2-6.7); Basophils % 0.5 %; HCT 40.5 % (36.0-46.0); HGB 12.2 g/dL (11.2-15.7); Immature Grans % 0.5 %; Lymphocytes % 13.6 %; MCH 28.8 pg (27.0-33.0); MCHC 30.1 % (32.0-36.0); MCV 96 fL (80-95); MPV 11.1 fL (8.0-11.0); Monocytes % 5.9 %; Neutrophils % 78.5 %; Platelet Count 205 10^3/uL (130-400); RBC 4.24 10^6/uL (3.93-5.22); RDW 14.8 % (11.7-14.6); RDW-SD 51.8 fL; WBC 6.25 10^3/uL (4.4-10.8)
[2024-10-03 17:33] LABS: NT-proBNP 122 pg/mL (<300)
== END 2024-10-03 18:29 | disposition home or self-care (01) ==
LOC: LBN 18:28
PROVIDERS: PCP Family Medicine; Visit Provider Nurse Practitioner Gerontology
DX: I50.21 Acute systolic (congestive) heart failure (principal); J06.9 Acute upper respiratory infection, unspecified
CPT/HCPCS: 83880; 85025

== ENCOUNTER 2024-10-07 19:24 | Outpatient (REF) | payer MEDICARE, MEDICAID, SELFPAY ==
[2024-10-07 19:39] LABS: Anion Gap 0.3 mmol/L (3-11); BUN 30 mg/dL (7-18); CO2 40.7 mmol/L (21.0-32.0); CREATININE 0.9 mg/dL (0.55-1.02); Calcium 9.2 mg/dL (8.5-10.1); Chloride 104 mmol/L (98-107); Estimated GFR 63.43 (mL/min/1.73m2); Glucose 110 mg/dL (74-106); Magnesium 2.2 mg/dL (1.8-2.4); NT-proBNP 102 pg/mL (<300); Potassium 5.3 mmol/L (3.5-5.1); Sodium 145 mmol/L (136-145)
== END 2024-10-07 19:25 | disposition home or self-care (01) ==
LOC: LBN 19:24
PROVIDERS: PCP Family Medicine; Visit Provider Nurse Practitioner Gerontology
DX: I50.21 Acute systolic (congestive) heart failure (principal); E83.42 Hypomagnesemia
CPT/HCPCS: 80048; 83735; 83880

== ENCOUNTER 2024-11-04 18:17 | Outpatient (REF) | payer MEDICARE, MEDICAID, SELFPAY ==
[2024-11-04 18:23] LABS: Abs Immature Grans 0.08 10^3/uL (0.0-0.06); Absolute Basophil Count 0.03 10^3/uL (0.0-0.2); Absolute Eosinophil Count 0.21 10^3/uL (0.0-0.7); Absolute Lymphocyte Count 0.95 10^3/uL (1.2-3.4); Absolute Monocyte Count 0.41 10^3/uL (0.1-0.8); Absolute Neutrophil Count 7.16 10^3/uL (1.2-6.7); Basophils % 0.3 %; Eosinophils % 2.4 %; HCT 40.3 % (36.0-46.0); HGB 11.9 g/dL (11.2-15.7); Immature Grans % 0.9 %; Lymphocytes % 10.7 %; MCHC 29.5 % (32.0-36.0); MCV 98 fL (80-95); MPV 11.3 fL (8.0-11.0); Monocytes % 4.6 %; Neutrophils % 81.1 %; Platelet Count 228 10^3/uL (130-400); RDW 14.8 % (11.7-14.6); RDW-SD 53.9 fL; WBC 8.84 10^3/uL (4.4-10.8)
[2024-11-04 18:40] LABS: Anion Gap 3.1 mmol/L (3-11); BUN 28 mg/dL (7-18); CO2 38.9 mmol/L (21.0-32.0); CREATININE 0.9 mg/dL (0.55-1.02); Chloride 103 mmol/L (98-107); Estimated GFR 63.43 (mL/min/1.73m2); Glucose 165 mg/dL (74-106); NT-proBNP 118 pg/mL (<300); Potassium 4.4 mmol/L (3.5-5.1); Sodium 145 mmol/L (136-145)
== END 2024-11-04 18:18 | disposition home or self-care (01) ==
LOC: LBN 18:17
PROVIDERS: PCP Family Medicine; Visit Provider Nurse Practitioner Gerontology
DX: I50.22 Chronic systolic (congestive) heart failure (principal); E87.6 Hypokalemia
CPT/HCPCS: 80048; 83880; 85025

== ENCOUNTER 2024-12-05 22:04 | Outpatient (REF) | payer MEDICARE, MEDICAID, SELFPAY ==
[2024-12-05 22:07] LABS: Absolute Basophil Count 0.03 10^3/uL (0.0-0.2); Absolute Eosinophil Count 0.15 10^3/uL (0.0-0.7); Absolute Lymphocyte Count 1.24 10^3/uL (1.2-3.4); Absolute Monocyte Count 0.35 10^3/uL (0.1-0.8); Absolute Neutrophil Count 6.45 10^3/uL (1.2-6.7); Basophils % 0.4 %; Eosinophils % 1.8 %; HCT 43.5 % (36.0-46.0); HGB 12.9 g/dL (11.2-15.7); Immature Grans % 1.2 %; Lymphocytes % 14.9 %; MCH 29.4 pg (27.0-33.0); MCHC 29.7 % (32.0-36.0); MCV 99 fL (80-95); MPV 11.4 fL (8.0-11.0); Monocytes % 4.2 %; Neutrophils % 77.5 %; Platelet Count 216 10^3/uL (130-400); RBC 4.39 10^6/uL (3.93-5.22); RDW 14.7 % (11.7-14.6); RDW-SD 53.6 fL; WBC 8.32 10^3/uL (4.4-10.8)
[2024-12-05 22:12] LABS: Anion Gap 4.2 mmol/L (3-11); BUN 26 mg/dL (7-18); CO2 37.8 mmol/L (21.0-32.0); CREATININE 1.1 mg/dL (0.55-1.02); Calcium 9.1 mg/dL (8.5-10.1); Chloride 102 mmol/L (98-107); Estimated GFR 49.55 (mL/min/1.73m2); Glucose 196 mg/dL (74-106); Magnesium 2.2 mg/dL (1.8-2.4); Potassium 4.8 mmol/L (3.5-5.1); Sodium 144 mmol/L (136-145); TSH (W/Ref FT4) 2.09 uIU/mL (0.36-3.74)
[2024-12-06 11:34] LABS: NT-proBNP 110 pg/mL (<300)
== END 2024-12-05 22:05 | disposition home or self-care (01) ==
LOC: LBN 22:04
PROVIDERS: PCP Family Medicine; Visit Provider Nurse Practitioner Gerontology
DX: I50.21 Acute systolic (congestive) heart failure (principal); E83.42 Hypomagnesemia; E87.6 Hypokalemia
CPT/HCPCS: 80048; 83735; 83880; 84443; 85025

== ENCOUNTER → 2024-12-12 12:26 | Outpatient (BNVA) | payer MEDICARE, MEDICAID, SELFPAY | PROVIDERS: PCP Family Medicine; Referring Provider Family Medicine; Visit Provider Physician Assistant Surgical | DX: R05.3 Chronic cough (principal); J84.9 Interstitial pulmonary disease, unspecified; K21.9 Gastro-esophageal reflux disease without esophagitis; J96.11 Chronic respiratory failure with hypoxia; K44.9 Diaphragmatic hernia without obstruction or gangrene | CPT/HCPCS: 99214 ==

== ENCOUNTER 2025-02-27 16:38 | Outpatient (REF) | payer MEDICARE, MEDICAID, SELFPAY ==
[2025-02-27 18:49] LABS: Abs Immature Grans 0.08 10^3/uL (0.0-0.06); HCT 44.9 % (36.0-46.0); HGB 13.9 g/dL (11.2-15.7); Immature Grans % 0.8 %; MCH 30.8 pg (27.0-33.0); MCHC 31.0 % (32.0-36.0); MCV 99 fL (80-95); MPV 11.1 fL (8.0-11.0); Platelet Count 196 10^3/uL (130-400); RBC 4.52 10^6/uL (3.93-5.22); RDW 13.5 % (11.7-14.6); RDW-SD 49.5 fL; WBC 10.01 10^3/uL (4.4-10.8)
[2025-02-27 19:08] LABS: ALT 27 U/L (14-59); AST 21 U/L (15-37); Albumin 3.7 g/dL (3.4-5.0); Alkaline Phosphatase 115 U/L (46-116); Anion Gap 4.3 mmol/L (3-11); BUN 18 mg/dL (7-18); Bilirubin, Total 0.3 mg/dL (0.2-1.0); CO2 39.7 mmol/L (21.0-32.0); Calcium 8.9 mg/dL (8.5-10.1); Chloride 100 mmol/L (98-107); Estimated GFR 85.23 (mL/min/1.73m2); Glucose 155 mg/dL (74-106); Magnesium 2.2 mg/dL (1.8-2.4); NT-proBNP 74 pg/mL (<300); Potassium 4.5 mmol/L (3.5-5.1); Sodium 144 mmol/L (136-145); TSH (W/Ref FT4) 2.04 uIU/mL (0.36-3.74); Total Protein 7.0 g/dL (6.4-8.2)
[2025-02-28 13:50] LABS: Hemoglobin A1C 5.7 % (<5.7)
== END 2025-02-27 16:39 | disposition home or self-care (01) ==
LOC: LBN 16:38
PROVIDERS: PCP Family Medicine; Visit Provider Nurse Practitioner Gerontology
DX: I50.22 Chronic systolic (congestive) heart failure (principal); D63.1 Anemia in chronic kidney disease
CPT/HCPCS: 80053; 83036; 83735; 83880; 84443; 85025

== ENCOUNTER → 2025-03-26 10:53 | Outpatient (BNVA) | payer MEDICARE, MEDICAID, SELFPAY | PROVIDERS: PCP Family Medicine; Referring Provider Family Medicine; Visit Provider Internal Medicine Pulmonary Disease | DX: J98.4 Other disorders of lung (principal); J84.9 Interstitial pulmonary disease, unspecified; J96.11 Chronic respiratory failure with hypoxia; Z87.891 Personal history of nicotine dependence | CPT/HCPCS: 99215 ==

== ENCOUNTER 2025-04-07 18:11 | Outpatient (REF) | payer MEDICARE, MEDICAID, SELFPAY ==
[2025-04-07 18:09] LABS: Abs Immature Grans 0.04 10^3/uL (0.0-0.06); HCT 42.5 % (36.0-46.0); HGB 12.9 g/dL (11.2-15.7); Immature Grans % 0.4 %; MCH 29.9 pg (27.0-33.0); MCHC 30.4 % (32.0-36.0); MCV 99 fL (80-95); MPV 11.6 fL (8.0-11.0); Platelet Count 207 10^3/uL (130-400); RBC 4.31 10^6/uL (3.93-5.22); RDW 13.5 % (11.7-14.6); RDW-SD 49.4 fL; WBC 8.90 10^3/uL (4.4-10.8)
[2025-04-07 18:12] LABS: ESR 35 mm/hr (0-30)
[2025-04-07 18:24] LABS: C-Reactive Protein 0.92 mg/dL (<or=0.5); Creatine Kinase 32 U/L (26-192)
[2025-04-07 18:28] LABS: ALT 23 U/L (14-59); AST 18 U/L (15-37); Albumin 3.5 g/dL (3.4-5.0); Alkaline Phosphatase 113 U/L (46-116); Anion Gap 4.8 mmol/L (3-11); BUN 25 mg/dL (7-18); Bilirubin, Total 0.3 mg/dL (0.2-1.0); CO2 39.2 mmol/L (21.0-32.0); Calcium 8.9 mg/dL (8.5-10.1); Chloride 99 mmol/L (98-107); Estimated GFR 63.04 (mL/min/1.73m2); Glucose 163 mg/dL (74-106); NT-proBNP 60 pg/mL (<300); Potassium 4.0 mmol/L (3.5-5.1); Sodium 143 mmol/L (136-145); Total Protein 6.8 g/dL (6.4-8.2)
[2025-04-10 12:16] LABS: RNP Ab, IgG <6.0 CU (<20.0)
[2025-04-10 18:30] LABS: JO 1 Ab, IgG <0.2 U
== END 2025-04-07 18:12 | disposition home or self-care (01) ==
LOC: LBN 18:11
PROVIDERS: Nurse Practitioner Gerontology; PCP Family Medicine; Visit Provider Internal Medicine Pulmonary Disease
DX: I50.22 Chronic systolic (congestive) heart failure (principal); E87.8 Other disorders of electrolyte and fluid balance, not elsewhere classified; J84.9 Interstitial pulmonary disease, unspecified
CPT/HCPCS: 80053; 82550; 85652; 83880; 85025; 86140; 86235

== ENCOUNTER 2025-04-10 01:02 | Outpatient (CLI) | payer MEDICARE, MEDICAID, SELFPAY ==
[2025-04-10] MEDS: Inhaler, Assist Device 1 EACH MC (17:20)
[2025-04-10] MEDS: Levalbuterol HFA 15 GM INH 4 PUFF IH (17:20)
--- NOTE | 2025-04-15 13:29 | W.PFT ---
Date of service: 04/10/25 Time of Service: 10:04 Pulmonary Function Test Result Indications: ILD Impression 1. Good patient effort was noted. ATS standards for reproducibility were met. Difficulty with DLCO testing noted 2. Normal showed no obstruction. FVC was reduced at 59% predicted, suggestive of restriction 3. Was unable to complete lung volume testing. 4. DLCO was 46% predicted, indicating a severe defect in alveolar gas exchange
== END 2025-04-10 01:03 | disposition home or self-care (01) ==
LOC: RT 01:02
PROVIDERS: PCP Family Medicine; Visit Provider Internal Medicine Pulmonary Disease
DX: J84.9 Interstitial pulmonary disease, unspecified (principal)
CPT/HCPCS: 94060; 94726; 94729

== ENCOUNTER → 2025-04-23 11:08 | Outpatient (BNVA) | payer MEDICARE, MEDICAID, SELFPAY | PROVIDERS: PCP Family Medicine; Referring Provider Family Medicine; Visit Provider Internal Medicine Pulmonary Disease | DX: J98.4 Other disorders of lung (principal); J84.9 Interstitial pulmonary disease, unspecified; J96.11 Chronic respiratory failure with hypoxia | CPT/HCPCS: 99214 ==

== ENCOUNTER 2025-04-28 19:04 | Outpatient (REF) | payer MEDICARE, MEDICAID, SELFPAY ==
[2025-04-28 20:30] LABS: Abs Immature Grans 0.08 10^3/uL (0.0-0.06); HCT 42.6 % (36.0-46.0); HGB 12.7 g/dL (11.2-15.7); Immature Grans % 0.9 %; MCH 30.0 pg (27.0-33.0); MCHC 29.8 % (32.0-36.0); MCV 101 fL (80-95); RBC 4.23 10^6/uL (3.93-5.22); RDW 13.4 % (11.7-14.6); RDW-SD 49.9 fL; WBC 8.81 10^3/uL (4.4-10.8)
[2025-04-28 20:43] LABS: ALT 23 U/L (14-59); AST 17 U/L (15-37); Albumin 3.1 g/dL (3.4-5.0); Alkaline Phosphatase 103 U/L (46-116); Anion Gap 2.5 mmol/L (3-11); BUN 17 mg/dL (7-18); Bilirubin, Total 0.4 mg/dL (0.2-1.0); CO2 42.5 mmol/L (21.0-32.0); Calcium 8.7 mg/dL (8.5-10.1); Chloride 101 mmol/L (98-107); Estimated GFR 72.61 (mL/min/1.73m2); Glucose 138 mg/dL (74-106); Potassium 4.0 mmol/L (3.5-5.1); Sodium 146 mmol/L (136-145); Total Protein 6.4 g/dL (6.4-8.2)
[2025-04-28 20:45] LABS: RBC Morphology Normal
== END 2025-04-28 19:05 | disposition home or self-care (01) ==
LOC: LBN 19:04
PROVIDERS: PCP Family Medicine; Visit Provider Nurse Practitioner Gerontology
DX: E87.8 Other disorders of electrolyte and fluid balance, not elsewhere classified (principal)
CPT/HCPCS: 80053; 85025

== ENCOUNTER 2025-05-05 00:39 | Outpatient (CLI) | payer MEDICARE, MEDICAID, SELFPAY ==
--- NOTE | 2025-05-05 06:30 | DI.CT_ITS ---
Exam(s) CT CHEST HIGH RESOLUTION EXAM: CT CHEST HIGH RESOLUTION CLINICAL HISTORY: Interstitial lung disease,j84.9. TECHNIQUE: Multi planar reconstructions were performed. CONTRAST MATERIAL: None COMPARISON: CT CT CHEST/ABD/PEL W from 06/06/2024 CR,XR XR PORTABLE CHEST AP from 06/20/2024 CR,XR XR PORTABLE CHEST AP from 07/03/2024 FINDINGS: CHEST: LUNGS: Again noted is bilateral interstitial disease right lung significantly more than left although there does appear to been some improvement in the accompanying patchy infiltrates throughout the right lung evident on the CT scan of May 2024. In addition, the previously described nodular densities in the right lung have resolved. Pleural thickening in the left lung over the posterior left lower lobe is unchanged. MEDIASTINUM: Large hiatal hernia again noted. This measures 8 cm wide by 7 cm AP by 6 cm craniocaudal. No obvious hilar adenopathy realizing that this is a noninfused study. There is no adenopathy in the anterior mediastinal fat. Also no supraclavicular nor axillary adenopathy. CARDIAC: Heart size is normal. There is no pericardial effusion.Caliber of the thoracic aorta is within normal limits. VISUALIZED UPPER ABDOMEN:No adrenal masses. Spleen size normal. OSSEOUS: Compression fractures of T12, T8, T7, and T6 are again noted, unchanged.. IMPRESSION: 1. Persistent interstitial disease which is again noted be more prominent in the right lung than the left. However, there has been significant improvement in the accompanying extensive patchy infiltrates seen throughout the right lung on the prior CT scan of May 2024. There are no pleural effusions nor prominent intrathoracic adenopathy. 2. Large hiatal hernia with measurements as above. 3. Stable multilevel thoracic vertebral compression fractures again noted. RADIATION DOSE DELIVERED: 829.4mGy.cm Total DLP DATA REPOSITORY: All CT scans at this facility are submitted to the National Radiology Data Registry (NRDR) Dose Index Registry (DIR) with the [employer] ([employer]). RADIATION OPTIMIZATION: All CT scans at this facility use at least one of these dose optimization techniques: automated exposure control; mA and/or kV adjustment per patient size (includes targeted exams where dose is matched to clinical indication); or iterative reconstruction.
== END 2025-05-05 00:59 ==
PROVIDERS: PCP Family Medicine; Visit Provider Internal Medicine Pulmonary Disease
DX: J84.9 Interstitial pulmonary disease, unspecified (principal); S22.060A Wedge compression fracture of T7-T8 vertebra, initial encounter for closed fracture; S22.080A Wedge compression fracture of T11-T12 vertebra, initial encounter for closed fracture; X58.XXXA Exposure to other specified factors, initial encounter
CPT/HCPCS: 71250

== ENCOUNTER 2025-05-06 17:35 | Outpatient (REF) | payer MEDICARE, MEDICAID, SELFPAY ==
[2025-05-06 20:02] LABS: Abs Immature Grans 0.07 10^3/uL (0.0-0.06); HCT 42.4 % (36.0-46.0); HGB 13.2 g/dL (11.2-15.7); Immature Grans % 0.8 %; MCH 30.3 pg (27.0-33.0); MCHC 31.1 % (32.0-36.0); MCV 98 fL (80-95); MPV 12.0 fL (8.0-11.0); Platelet Count 204 10^3/uL (130-400); RBC 4.35 10^6/uL (3.93-5.22); RDW 13.7 % (11.7-14.6); RDW-SD 49.3 fL; WBC 8.37 10^3/uL (4.4-10.8)
== END 2025-05-06 17:36 | disposition home or self-care (01) ==
LOC: LBN 17:35
PROVIDERS: PCP Family Medicine; Visit Provider Nurse Practitioner Gerontology
DX: D63.1 Anemia in chronic kidney disease (principal)
CPT/HCPCS: 85025

== ENCOUNTER → 2025-05-07 10:59 | Outpatient (BNVA) | payer MEDICARE, MEDICAID, SELFPAY | PROVIDERS: PCP Family Medicine; Referring Provider Family Medicine; Visit Provider Physician Assistant Surgical | DX: J84.9 Interstitial pulmonary disease, unspecified (principal); K21.9 Gastro-esophageal reflux disease without esophagitis; J96.11 Chronic respiratory failure with hypoxia; K44.9 Diaphragmatic hernia without obstruction or gangrene | CPT/HCPCS: 99214 ==

== ENCOUNTER 2025-05-12 18:16 | Outpatient (REF) | payer MEDICARE, MEDICAID, SELFPAY ==
[2025-05-12 19:23] LABS: Abs Immature Grans 0.10 10^3/uL (0.0-0.06); HCT 41.7 % (36.0-46.0); HGB 12.7 g/dL (11.2-15.7); Immature Grans % 1.3 %; MCH 30.0 pg (27.0-33.0); MCHC 30.5 % (32.0-36.0); MCV 98 fL (80-95); MPV 12.0 fL (8.0-11.0); Platelet Count 192 10^3/uL (130-400); RBC 4.24 10^6/uL (3.93-5.22); RDW 13.2 % (11.7-14.6); RDW-SD 48.0 fL; WBC 7.95 10^3/uL (4.4-10.8)
== END 2025-05-12 18:17 | disposition home or self-care (01) ==
LOC: LBN 18:16
PROVIDERS: PCP Family Medicine; Visit Provider Nurse Practitioner Gerontology
DX: D63.1 Anemia in chronic kidney disease (principal)
CPT/HCPCS: 85025

== ENCOUNTER 2025-05-19 16:14 | Outpatient (REF) | payer MEDICARE, MEDICAID, SELFPAY ==
[2025-05-19 16:35] LABS: Abs Immature Grans 0.04 10^3/uL (0.0-0.06); HCT 42.1 % (36.0-46.0); HGB 12.5 g/dL (11.2-15.7); Immature Grans % 0.6 %; MCH 29.6 pg (27.0-33.0); MCHC 29.7 % (32.0-36.0); MCV 100 fL (80-95); MPV 12.0 fL (8.0-11.0); Platelet Count 159 10^3/uL (130-400); RBC 4.23 10^6/uL (3.93-5.22); RDW 13.7 % (11.7-14.6); RDW-SD 50.4 fL; WBC 6.30 10^3/uL (4.4-10.8)
== END 2025-05-19 16:15 | disposition home or self-care (01) ==
LOC: LBN 16:14
PROVIDERS: PCP Family Medicine; Visit Provider Nurse Practitioner Gerontology
DX: D63.1 Anemia in chronic kidney disease (principal)
CPT/HCPCS: 85025

== ENCOUNTER → 2025-05-21 10:58 | Outpatient (BNVA) | payer MEDICARE, MEDICAID, SELFPAY | PROVIDERS: PCP Family Medicine; Referring Provider Family Medicine; Visit Provider Internal Medicine Pulmonary Disease | DX: J84.89 Other specified interstitial pulmonary diseases (principal); J98.4 Other disorders of lung; Z87.891 Personal history of nicotine dependence | CPT/HCPCS: 99214 ==

== ENCOUNTER 2025-06-02 21:05 | Outpatient (REF) | payer MEDICARE, MEDICAID, SELFPAY ==
[2025-06-02 18:38] LABS: Abs Immature Grans 0.05 10^3/uL (0.0-0.06); HCT 44.9 % (36.0-46.0); HGB 13.5 g/dL (11.2-15.7); Immature Grans % 0.7 %; MCH 29.5 pg (27.0-33.0); MCHC 30.1 % (32.0-36.0); MCV 98 fL (80-95); MPV 11.8 fL (8.0-11.0); Platelet Count 184 10^3/uL (130-400); RBC 4.57 10^6/uL (3.93-5.22); RDW 13.5 % (11.7-14.6); RDW-SD 49.4 fL; WBC 7.42 10^3/uL (4.4-10.8)
== END 2025-06-02 21:06 | disposition home or self-care (01) ==
LOC: LBN 21:05
PROVIDERS: PCP Family Medicine; Visit Provider Nurse Practitioner Gerontology
DX: D63.1 Anemia in chronic kidney disease (principal)
CPT/HCPCS: 85025

== ENCOUNTER 2025-06-16 19:25 | Outpatient (REF) | payer MEDICARE, MEDICAID, SELFPAY ==
[2025-06-16 17:35] LABS: Abs Immature Grans 0.05 10^3/uL (0.0-0.06); HCT 45.9 % (36.0-46.0); HGB 13.9 g/dL (11.2-15.7); Immature Grans % 0.7 %; MCH 30.0 pg (27.0-33.0); MCHC 30.3 % (32.0-36.0); MCV 99 fL (80-95); MPV 11.7 fL (8.0-11.0); Platelet Count 196 10^3/uL (130-400); RBC 4.64 10^6/uL (3.93-5.22); RDW 13.9 % (11.7-14.6); RDW-SD 50.3 fL; WBC 7.60 10^3/uL (4.4-10.8)
== END 2025-06-16 19:26 | disposition home or self-care (01) ==
LOC: LBN 19:25
PROVIDERS: PCP Legal Medicine; Visit Provider Nurse Practitioner Gerontology
DX: D63.1 Anemia in chronic kidney disease (principal)
CPT/HCPCS: 85025

== ENCOUNTER → 2025-06-25 13:54 | Outpatient (BNVA) | payer MEDICARE, MEDICAID, SELFPAY | PROVIDERS: PCP Legal Medicine; Referring Provider Family Medicine; Visit Provider Internal Medicine Pulmonary Disease | DX: J98.4 Other disorders of lung (principal); J84.9 Interstitial pulmonary disease, unspecified; J96.11 Chronic respiratory failure with hypoxia; Z87.891 Personal history of nicotine dependence | CPT/HCPCS: 99214 ==

== ENCOUNTER 2025-06-30 19:07 | Outpatient (REF) | payer MEDICARE, MEDICAID, SELFPAY ==
[2025-06-30 18:45] LABS: HCT 42.3 % (36.0-46.0); HGB 13.1 g/dL (11.2-15.7); MCH 29.0 pg (27.0-33.0); MCHC 31.0 % (32.0-36.0); MCV 94 fL (80-95); MPV 11.7 fL (8.0-11.0); Platelet Count 210 10^3/uL (130-400); RBC 4.52 10^6/uL (3.93-5.22); RDW 13.7 % (11.7-14.6); RDW-SD 46.5 fL; WBC 6.42 10^3/uL (4.4-10.8)
== END 2025-06-30 19:08 | disposition home or self-care (01) ==
LOC: LBN 19:07
PROVIDERS: PCP Legal Medicine; Visit Provider Internal Medicine Pulmonary Disease
DX: J84.9 Interstitial pulmonary disease, unspecified (principal); D63.1 Anemia in chronic kidney disease
CPT/HCPCS: 85027

== ENCOUNTER 2025-08-18 15:59 | Outpatient (REF) | payer MEDICARE, MEDICAID, SELFPAY ==
[2025-08-18 15:57] LABS: Abs Immature Grans 0.18 10^3/uL (0.0-0.06); HCT 41.0 % (36.0-46.0); HGB 12.3 g/dL (11.2-15.7); Immature Grans % 2.2 %; MCH 28.9 pg (27.0-33.0); MCHC 30.0 % (32.0-36.0); MCV 97 fL (80-95); MPV 10.6 fL (8.0-11.0); Platelet Count 230 10^3/uL (130-400); RBC 4.25 10^6/uL (3.93-5.22); RDW 14.5 % (11.7-14.6); RDW-SD 51.6 fL; WBC 8.27 10^3/uL (4.4-10.8)
== END 2025-08-18 16:00 | disposition home or self-care (01) ==
LOC: LBN 15:59
PROVIDERS: PCP Legal Medicine; Visit Provider Nurse Practitioner Gerontology
DX: J84.9 Interstitial pulmonary disease, unspecified (principal); D63.1 Anemia in chronic kidney disease
CPT/HCPCS: 80156; 85025